=== PATIENT | male | born 1950 | race Caucasian/White ===

== ENCOUNTER 2020-05-20 08:19 | Outpatient (REF) | payer MEDICARE, SELFPAY ==
[2020-05-20 11:42] LABS: Estimated Average Glucose 197 mg/dL; Hemoglobin A1c % 8.5 %
[2020-05-20 11:56] LABS: Glucose Fasting 227 mg/dL (60-99)
== END 2020-05-20 08:20 | disposition home or self-care (01) ==
LOC: HO.HMGCLDS 08:19
PROVIDERS: PCP Internal Medicine; Visit Provider Internal Medicine
DX: E11.9 Type 2 diabetes mellitus without complications (principal)
CPT/HCPCS: 82947; 83036

== ENCOUNTER 2020-05-22 10:49 | Outpatient (REF) | payer MEDICARE, MEDICAID, SELFPAY ==
[2020-05-22 14:46] LABS: Glucose Urine UA >=1000 MG/DL (NEG); Leukocyte Esterase Urine NEG (NEG); Nitrite Urine NEG (NEG); PH 5.5 (5.0-8.0); Urine Blood TRACE (NEG); Urine Ketones NEG (NEG); Urine Protein TRACE MG/DL (NEG-TRACE)
[2020-05-22 14:53] LABS: Appearance Urine CLEAR; Color Urine YELLOW
[2020-05-22 15:12] LABS: RBC Urine 0-2 /HPF (0); Squamous Epithelial Cell Urine 1+ /LPF; WBC Urine 0-2 /HPF (0-4)
== END 2020-05-22 10:50 | disposition home or self-care (01) ==
LOC: HO.HMGCLDS 10:49
PROVIDERS: PCP Internal Medicine; Visit Provider Internal Medicine
DX: R35.0 Frequency of micturition (principal)
CPT/HCPCS: 81001; 87086

== ENCOUNTER 2020-06-02 14:54 | Emergency (ER) | payer MEDICARE, MEDICAID, SELFPAY ==
[2020-06-02 15:05] VITALS: BP 165/76; PULSE 103; RESP 24; TEMP 36.6; O2SAT 97; BMI 33.3
--- NOTE | 2020-06-02 15:26 | PC.NURSE ---
R>L LE PITTING EDEMA SOB
--- NOTE | 2020-06-02 15:38 | ED_ITS ---
HPI - Extremity Problem General Chief complaint: Extremity Problem Stated complaint: LEGS SWOLLEN Time Seen by Provider: 06/02/20 15:24 Source: patient and family Mode of arrival: ambulatory Limitations: no limitations History of Present Illness HPI Narrative: patient has history of chronic leg swelling used to be only 1+ edema not on any diuretics noticed for last few days increased swelling and shortness of breath on exertion. Patient denies any chest pain no PND no pain in the calf area MD Complaint: extremity swelling Onset (ago): week(s) Pain Consistency: constant Location: left and right Severity scale (1-10): 2 Radiation: none Relieving factors: nothing Exacerbating factors: nothing Associated symptoms: shortness of breath Related Data Home Medications Medication Instructions Recorded Confirmed amlodipine 1 tab PO DAILY 06/02/20 06/02/20 azathioprine 1 tab PO TID 06/02/20 06/02/20 melatonin 06/02/20 prednisone 1 tab PO DAILY 06/02/20 06/02/20 prednisone 2.5 tab PO DAILY 06/02/20 06/02/20 pyridostigmine bromide 1 tab PO QID 06/02/20 06/02/20 quetiapine 1 tab PO BEDTIME 06/02/20 06/02/20 simvastatin 1 tab PO BEDTIME 06/02/20 06/02/20 valsartan 1 tab PO DAILY 06/02/20 06/02/20 Allergies Allergy/AdvReac Type Severity Reaction Status Date / Time No Known Allergies Allergy Unverified 03/21/20 15:56 [No Known Allergies*] Review of Systems Review of Systems: REVIEW OF SYSTEMS: Pertinent positives and negatives are stated above in the history. GEN: no fevers, chills, fatigue HEENT: no nasal congestion, sore throat, ear pain NEURO: no headache, dizziness, focal weakness PULM: no cough CV: no chest pain, palpitations, ABD: no abdominal pain, nausea, vomiting, diarrhea : no dysuria, urgency, frequency SKIN: no rash ROS otherwise negative x 10 PMFSH Past Medical History Medical History Diabetes mellitus, type 2 Hypercholesteremia Hypertension Myasthenia gravis Myocardial infarction Social History Social History Advance Directives: No Advance Directives Information Provided: No Physical Exam Vital Signs: Vital Signs: Last Vital Signs Temp 97.8 F 06/02/20 15:05 Pulse 103 H 06/02/20 15:05 Resp 24 H 06/02/20 15:05 BP 165/76 H 06/02/20 15:05 Pulse Ox 97 06/02/20 15:05 Body Mass Index 33.3 Appearance: Alert. Oriented X3. No acute distress. Eyes: Pupils equal, round and reactive to light. ENT: Pharynx normal. Neck: Normal inspection. Neck supple. CVS: Normal heart rate and rhythm. Pulses normal. Respiratory: No respiratory distress. Breath sounds normal. no crackles or rales Abdomen: Soft and nontender. bowel sounds present no hepatosplenomegaly Skin: Skin warm and dry. Normal skin color. Normal skin turgor. Extremities: 3+ lower extremity edema. Good range of movement no calf tenderness Neuro: Oriented X 3. No motor deficit. No sensory deficit. MDM - Extremity (Nontraumatic) MDM Narrative Medical decision making narrative: patient with chronic pedal edema with history of elevated BNP in the past patient is not on any diuretics will do the workup including chest x-ray and BNP and prescribe Lasix. Labs are pending sylvia espinoza signed out to Dr. Aquino for further evaluation and disposition ECG Data Attestation EKG: I personally reviewed and interpreted this ECG as follows: ECG interpretation date: 06/02/20 Interpretation: normal sinus rhythm with ventricular rate 86 normal intervals normal axis no acute ST T wave changes impression normal EKG Discharge Plan Discharge Prescriptions: No Action quetiapine 25 mg tablet 1 tab PO BEDTIME RF: 0 prednisone 10 mg tablet 2.5 tab PO DAILY RF: 0 prednisone 5 mg tablet 1 tab PO DAILY RF: 0 valsartan 80 mg tablet 1 tab PO DAILY RF: 0 azathioprine 50 mg tablet 1 tab PO TID RF: 0 simvastatin 40 mg tablet 1 tab PO BEDTIME RF: 0 amlodipine 10 mg tablet 1 tab PO DAILY RF: 0 pyridostigmine bromide 60 mg tablet 1 tab PO QID RF: 0 melatonin RF: 0
--- NOTE | 2020-06-02 15:43 | ECG_ITS ---
Test Reason : SWOLLEEN FEET Blood Pressure : / mmHG Vent. Rate : 086 BPM Atrial Rate : 086 BPM P-R Int : 132 ms QRS Dur : 084 ms QT Int : 360 ms P-R-T Axes : 068 007 034 degrees QTc Int : 430 ms Normal sinus rhythm Low voltage QRS Nonspecific T wave abnormality Inferior leads Abnormal ECG When compared with ECG of 29-OCT-2019 07:25, Premature atrial complexes are no longer Present Right bundle branch block is no longer Present ST no longer depressed in Inferior leads Anterior leads Heart rate has decreased Referred By: Bubba Wright Electronically Signed By:JENIFFER CHUNG MD
--- NOTE | 2020-06-02 15:44 | XR_ITS ---
EXAMINATION: XR CHEST CLINICAL INFORMATION: Congestive heart failure. COMPARISON: 10/28/2019 and 10/29/2019 TECHNIQUE: Frontal view of the chest was obtained. FINDINGS: Lungs are well expanded. Thin linear opacity of focal scarring or atelectasis in the lingula. No pulmonary edema or consolidation. No overt pleural effusion. Mild pleural thickening in the inferolateral aspect of each hemithorax corresponds to mild subpleural fat deposition (as noted on chest CT of 10/10/2019. Cardiac silhouette is normal in size. There is atherosclerotic calcification of the aorta. The visualized bones are intact. XR/XR chest 1V IMPRESSION: No acute cardiopulmonary findings. No evidence of congestive heart failure.
[2020-06-02 16:48] LABS: MANUAL DIFF FLAG NO
[2020-06-02] MEDS: Furosemide 20 MG/2 ML VIAL IVPUSH (16:59)
[2020-06-02 17:04] LABS: Basophils Percent Auto 0.1 % (0-2); Eosinophils Percent Auto 0.1 % (0-4); Hematocrit 43.2 % (42-52); Hemoglobin 13.8 g/dl (14.0-18.0); Imm Gran Abs Auto 0.28 X10*3/uL (0.00-0.03); Imm Gran Pct Auto 2.5 % (0.0-0.4); Lymphocytes Absolute Auto 0.9 X10*3/uL (1.2-4.9); Lymphocytes Percent Auto 7.9 % (20-40); Mean Corpuscular HGB Conc 31.9 g/dl (31.0-36.0); Mean Corpuscular Hemoglobin 28.4 pg (27.0-33.0); Mean Corpuscular Volume 88.9 fL (80-98); Mean Platelet Volume 9.7 fL (9.4-12.4); Monocytes Absolute Auto 0.5 X10*3/uL (0.1-1.2); Monocytes Percent Auto 4.8 % (2-11); Neutrophils Absolute Auto 9.5 X10*3/uL (2.0-8.3); Neutrophils Percent Auto 84.6 % (45-73); Platelet Count 215 X10*3/uL (160-400); Red Blood Count 4.86 X10*6/uL (4.60-5.80); Red Cell Distribution Width 16.7 % (11.0-16.0); White Blood Count 11.3 X10*3/uL (4.8-10.8)
[2020-06-02 17:11] LABS: Alanine Aminotransferase 39 U/L (0-40); Alkaline Phosphatase 41 U/L (39-117); Anion Gap 17 (12-20); Aspartate Amino Transferase 34 U/L (5-37); Bilirubin Total 0.5 mg/dL (0.0-1.0); Blood Urea Nitrogen 18 mg/dL (9-16); Calcium 8.7 mg/dL (8.4-10.2); Carbon Dioxide 23 mmol/L (22-29); Chloride 103 mmol/L (96-108); Estimated Glomerular Filt Rate > 60; Glucose Random 132 mg/dL (60-115); Potassium 4.4 mmol/l (3.3-5.1); Sodium 139 mmol/L (135-145); Total Protein 6.5 g/dL (6.5-8.0)
[2020-06-02 17:14] LABS: B Type Natriuretic Peptide 20 pg/mL (<100)
[2020-06-02 18:00] VITALS: BP 105/72; PULSE 87; RESP 18; TEMP 36.9; O2SAT 95
[2020-06-02 18:10] LABS: Bilirubin Direct 0.2 mg/dL (0.0-0.5)
[2020-06-02 20:00] VITALS: PULSE 81; RESP 18
--- NOTE | 2020-06-02 20:35 | PC.NURSE ---
PT REQUESTED FOR THIS RN TO REMOVE IV AND ECG LEADS TO HE COULD LEAVE, PT VERBALIZED UNDERSTANDING OF NEED FOR PROVIDER RE-EVAL BUT STATED HE HAD TO GET TO A RESTAURANT BEFORE THEY CLOSED, STATED HE WOULD FOLLOW UP WITH HIS PCP IN THE AM. PT AMBULATED OUT OF ED WITH EVEN STEADY GAIT.
== END 2020-06-02 20:36 | disposition left against medical advice (07) ==
PROVIDERS: Internal Medicine; Emergency Provider Emergency Medicine; PCP Internal Medicine
DX: M79.605 Pain in left leg (principal); M79.604 Pain in right leg; R07.9 Chest pain, unspecified; I10 Essential (primary) hypertension; Z79.899 Other long term (current) drug therapy
CPT/HCPCS: 36415; 71045; 80053; 80076; 82248; 83880; 84484; 85025; 93005; 96374; 99284; J1940

== ENCOUNTER 2020-06-12 12:23 | Outpatient (REF) | payer MEDICARE, MEDICAID, SELFPAY ==
[2020-06-12 13:59] LABS: Alanine Aminotransferase 42 U/L (0-40); Albumin Level 4.3 g/dL (3.5-5.0); Alkaline Phosphatase 45 U/L (39-117); Anion Gap 20 (12-20); Aspartate Amino Transferase 30 U/L (5-37); Bilirubin Total 0.4 mg/dL (0.0-1.0); Blood Urea Nitrogen 21 mg/dL (9-16); Calcium 9.4 mg/dL (8.4-10.2); Carbon Dioxide 22 mmol/L (22-29); Chloride 103 mmol/L (96-108); Estimated Glomerular Filt Rate > 60; Glucose Random 262 mg/dL (60-115); Potassium 5.8 mmol/l (3.3-5.1); Sodium 139 mmol/L (135-145)
[2020-06-12 14:10] LABS: Estimated Average Glucose 203 mg/dL; Hemoglobin A1c % 8.7 %
== END 2020-06-12 12:24 | disposition home or self-care (01) ==
LOC: HO.LAB 12:23
PROVIDERS: PCP Internal Medicine; Visit Provider Psychiatry & Neurology Neurology
DX: G70.01 Myasthenia gravis with (acute) exacerbation (principal); E11.9 Type 2 diabetes mellitus without complications
CPT/HCPCS: 80053; 83036

== ENCOUNTER 2020-07-22 07:45 | Outpatient (REF) | payer MEDICARE, MEDICAID, SELFPAY ==
[2020-07-22 11:27] LABS: Estimated Average Glucose 206 mg/dL; Hemoglobin A1c % 8.8 %
[2020-07-22 11:41] LABS: Glucose Fasting 218 mg/dL (60-99)
== END 2020-07-22 07:46 | disposition home or self-care (01) ==
LOC: HO.HMGCLDS 07:45
PROVIDERS: PCP Internal Medicine; Visit Provider Internal Medicine
DX: E11.9 Type 2 diabetes mellitus without complications (principal)
CPT/HCPCS: 36415; 82947; 83036

== ENCOUNTER 2020-09-04 07:28 | Outpatient (REF) | payer MEDICARE, MEDICAID, SELFPAY ==
[2020-09-04 11:04] LABS: MANUAL DIFF FLAG NO
[2020-09-04 11:23] LABS: Basophils Percent Auto 0.3 % (0-2); Eosinophils Absolute Auto 0.1 X10*3/uL (0.0-0.4); Eosinophils Percent Auto 0.5 % (0-4); Hematocrit 47.5 % (42-52); Imm Gran Abs Auto 0.23 X10*3/uL (0.00-0.03); Imm Gran Pct Auto 2.3 % (0.0-0.4); Lymphocytes Absolute Auto 0.8 X10*3/uL (1.2-4.9); Lymphocytes Percent Auto 8.1 % (20-40); Mean Corpuscular HGB Conc 31.6 g/dl (31.0-36.0); Mean Corpuscular Volume 88.6 fL (80-98); Mean Platelet Volume 9.6 fL (9.4-12.4); Monocytes Absolute Auto 0.5 X10*3/uL (0.1-1.2); Monocytes Percent Auto 5.3 % (2-11); Neutrophils Absolute Auto 8.5 X10*3/uL (2.0-8.3); Neutrophils Percent Auto 83.5 % (45-73); Platelet Count 242 X10*3/uL (160-400); Red Blood Count 5.36 X10*6/uL (4.60-5.80); Red Cell Distribution Width 17.7 % (11.0-16.0); White Blood Count 10.2 X10*3/uL (4.8-10.8)
[2020-09-04 11:28] LABS: Glucose Urine UA 250 MG/DL (NEG); Leukocyte Esterase Urine NEG (NEG); Nitrite Urine NEG (NEG); PH 5.5 (5.0-8.0); Specific Gravity - Urine >= 1.030 (1.005-1.025); Urine Blood 2+ (NEG); Urine Ketones 5 MG/DL (NEG); Urine Protein 2+ MG/DL (NEG-TRACE)
[2020-09-04 11:36] LABS: Appearance Urine TURBID; Color Urine YELLOW
[2020-09-04 11:45] LABS: Estimated Average Glucose 203 mg/dL; Hemoglobin A1c % 8.7 %
[2020-09-04 11:55] LABS: Alanine Aminotransferase 44 U/L (0-40); Albumin Level 4.1 g/dL (3.5-5.0); Alkaline Phosphatase 37 U/L (39-117); Anion Gap 18 (12-20); Aspartate Amino Transferase 30 U/L (5-37); Bilirubin Total 0.7 mg/dL (0.0-1.0); Blood Urea Nitrogen 21 mg/dL (9-16); Calcium 9.3 mg/dL (8.4-10.2); Carbon Dioxide 22 mmol/L (22-29); Chloride 104 mmol/L (96-108); Cholesterol 148 mg/dL; Estimated Glomerular Filt Rate > 60; Glucose Fasting 181 mg/dL (60-99); HDL Cholesterol 65 mg/dL; LDL Cholesterol Calculated 47 mg/dl; Potassium 3.7 mmol/L (3.3-5.1); Sodium 140 mmol/L (135-145); Total Protein 6.6 g/dL (6.5-8.0); Triglycerides 181 mg/dL
[2020-09-04 12:03] LABS: Amorphous Sediment Urine 4+ /LPF; Calcium Oxalate Crystals Urine 1+ /LPF; RBC Urine 0-2 /HPF (0); WBC Urine 0 /HPF (0-4)
[2020-09-04 12:12] LABS: Creatinine Urine 185.34 mg/dL
[2020-09-04 12:18] LABS: PSA,Total (Free>4and<10) 0.58 ng/mL (0.00-4.00)
[2020-09-04 12:33] LABS: Microalbum/Creatinine Ratio Ur 337.2 ug/mg cr
== END 2020-09-04 07:29 | disposition home or self-care (01) ==
LOC: HO.HMGCLDS 07:28
PROVIDERS: PCP Internal Medicine; Visit Provider Internal Medicine
DX: E11.9 Type 2 diabetes mellitus without complications (principal); I10 Essential (primary) hypertension; E78.00 Pure hypercholesterolemia, unspecified; G70.00 Myasthenia gravis without (acute) exacerbation; I48.0 Paroxysmal atrial fibrillation; Z12.5 Encounter for screening for malignant neoplasm of prostate
CPT/HCPCS: 36415; 80053; 80061; 81001; 82043; 83036; 84153; 85025

== ENCOUNTER 2021-01-30 13:38 | Outpatient (AMB) | payer MEDICARE, MEDICAID, SELFPAY ==
--- NOTE | 2021-01-30 14:01 | MHC.OFFVIS ---
Intake Vital Signs 01/30/21 14:11 Height 5 ft 6 in Weight 237 lb BMI 38.2 BP 136/72 Blood Pressure Location Rt brachial Position Sitting Respiration 16 Intake Visit Reasons: hx of hematuria Intake Note: Pt c/o pain has been current for 3 weeks, when touching penis, says penis goes inside and it has to be be pulled out to void. Also Pt was hospitalized recently. [employer] Supervisor Required: No Accompanied by: Spouse Allergies No Known Allergies [No Known Allergies*] Allergy (Verified 06/23/22 12:20) HPI HPI Comments History of Present Illness Details Microscopic hematuria Has not seen any blood in his urine Imaging - ultrasound no abnormality kidneys or bladder Recommend check cystoscopy PFSH Medical History Acute hyperglycemia Ascites Aspiration pneumonia Candidiasis, intertriginous CHF (congestive heart failure) Diabetes Diabetes mellitus, type 2 DVT (deep venous thrombosis) Edema Erythema of lower extremity Hypercholesteremia Hypertension Intractable nausea and vomiting Leg edema Microscopic hematuria Myasthenia gravis Myocardial infarction Obesity Pneumonia due to COVID-19 virus TBI (traumatic brain injury) Urinary tract infection Weakness Surgical History Hx of colonoscopy Family History Mother No problems noted. Father No problems noted. Other No family history of coronary artery disease Social History Household Members: Family Housing: House Do you presently have visiting nurse or other home services: No Unable to assess alcohol history related to: Unknown Alcohol intake: former Patient Tobacco Use Status: Former Tobacco user Tobacco use type: Cigarette Smoked in Last 30 Days: No Second Hand Smoke Exposure: Yes Use of substances other than those prescribed or required for medical reasons: No Substance Use Type: Former Substance User Currently Displaying Signs/Symptoms of Drug Intoxication Withdrawal: No Have you been hit, kicked, punched, or otherwise hurt by someone within the past year? If so, by whom?: No Do you feel safe in your current relationship?: Yes Is there a partner from a previous relationship who is making you feel unsafe now?: No Are you made to feel afraid or neglected: No Advance Directives: Yes Advance Directives on File: Yes Advance Directives Date on File: 05/05/21 Do you have thoughts of harming others: None Do you have a plan to hurt others: No Plan Recently lost weight without trying: No Nutrition Risks: Difficulty swallowing service: No Current occupational status: retired Review of Systems Const Denies chills and Denies fever(s) Card Reports no additional complaints and Denies syncope Resp Denies cough GI Denies abdominal pain and Denies heartburn Reports as per HPI and Denies change in libido Neuro Denies syncope Psych Denies change in libido Endo Denies change in libido Physical Exam Vital Signs: Last Vital Signs Resp 16 01/30/21 14:11 BP 136/72 01/30/21 14:11 BMI result Body Mass Index 38.2 Const General: cooperative, healthy appearing, comfortable and no acute distress Orientation/consciousness: patient oriented x3 HENMT Face and sinus: Yes normal facial exam Mouth: moist mucous membranes Neck Neck: Yes normal visual inspection, Yes full ROM and Yes trachea midline Chest Chest palpation & inspection: normal inspection of the chest Resp Effort & Inspection: normal respiratory effort, able to speak in complete sentences and no respiratory distress GI Inspection: Yes normal to inspection Back/Spine/Pelvis Cervical Spine: normal cervical lordosis Thoracic/Lumbar Spine: thoracic and lumbar spine normal to inspection Skin General skin exam: no rashes or lesions noted Neuro General: patient oriented x3, gait normal, tone normal and moves all extremities Extrem General: Yes normal to inspection and Yes capillary refill normal Results AMB Urinalysis, Automated UA Leukoctes 0 Maude/uL Last Edit by [email or web address] on 01/30/21 14:13 UA Nitrite Negative Last Edit by [email or web address] on 01/30/21 14:13 UA Urobilinogen 0.2 mg/dL Last Edit by Renetta Colon on 01/30/21 14:13 UA Protein 30 mg/dL Last Edit by Renetta Colon on 01/30/21 14:13 UA pH 5.5 Last Edit by Renetta Colon on 01/30/21 14:13 UA Blood 25 Terrance/uL Last Edit by Renetta Colon on 01/30/21 14:13 UA Specific [place] 1.025 Last Edit by [email or web address] on 01/30/21 14:13 UA Ketone Positive Last Edit by [facility] on 01/30/21 14:13 UA Bilirubin 0 mg/dL Last Edit by Renetta Morris on 01/30/21 14:13 UA Glucose 1000 mg/dL Last Edit by Renetta Morris on 01/30/21 14:13 Results Reviewed Results Reviewed: Laboratory Last Values Urine pH (Auto) 5.5 01/30/21 14:03 Specific [place] (Auto) 1.025 01/30/21 14:03 Urine Protein (Auto) 30 mg/dL 01/30/21 14:03 Glucose (UA)(Auto) 1000 mg/dL 01/30/21 14:03 Urine Ketones (Auto) Positive 01/30/21 14:03 Urine Blood (Auto) 25 Terrance/uL 01/30/21 14:03 Urine Nitrite (Auto) Negative 01/30/21 14:03 Urine Bilirubin (Auto) 0 mg/dL 01/30/21 14:03 Urine Urobilinogen (Auto) 0.2 mg/dL 01/30/21 14:03 Leukocyte Esterase (Auto) 0 Maude/uL 01/30/21 14:03 Assessment & Plan Assessment & Plan (1) Microscopic hematuria: Code(s): R31.29 - Other microscopic hematuria Plan Complete imaging, cytology and office cysto Orders: Orders AMB Urinalysis Automated 01/30/21 R31.9 - Hematuria, unspecified Blood Urea Nitrogen 01/30/21 R39.15 - Urgency of urination, R31.29 - Other microscopic hematuria CT urogram 01/30/21 R31.0 - Gross hematuria, R31.29 - Other microscopic hematuria Urine Cytology 01/30/21 R31.29 - Other microscopic hematuria Creatinine 01/30/21 R39.15 - Urgency of urination, R31.29 - Other microscopic hematuria Patient Instructions: Imaging studies, laboratory and physical exam results were discussed and reviewed in detail. No major barriers to patient understanding were identified. An opportunity to ask questions regarding the treatment plan was provided. All questions were answered. The patient expressed understanding and agreement with the above treatment plan. The patient is aware they should contact our office by phone for worsening of their current condition or the appearance of new urologic symptoms. Compliance is encouraged with any medications and followup testing that is ordered. It is a privilege to participate in the urologic care of your patient. If you have any questions or concerns regarding treatment for the above conditions, or other urologic issues, please do not hesitate to contact me. The office telephone contact is [phone]. This note is constructed using voice recognition software. While every effort has been made to ensure accuracy thermal technician errors may have been included. Yours sincerely, Dr Konrad Garza MD, [facility] - Urology Providers of Expert, Compassionate Care for the Genitourinary System Coding Level of Care Code New Pt Level 3 (84472) Diagnoses Microscopic hematuria R31.29
[2021-01-30 14:11] VITALS: BP 136/72; RESP 16; BMI 38.2
== END 2021-01-30 14:20 | disposition home or self-care (01) ==
LOC: HO.HUSH 13:38
PROVIDERS: PCP Internal Medicine; Visit Provider Urology
DX: R31.29 Other microscopic hematuria (principal)
CPT/HCPCS: 99499

== ENCOUNTER 2021-01-30 13:38 | Outpatient (REF) | payer MEDICARE, MEDICAID, SELFPAY ==
[2021-01-30 16:43] LABS: Urine Cytology See Pathology rpt
== END 2021-01-30 13:39 | disposition home or self-care (01) ==
LOC: HO.LNP 13:38
PROVIDERS: PCP Internal Medicine; Visit Provider Urology
DX: R31.29 Other microscopic hematuria (principal)
CPT/HCPCS: 88112

== ENCOUNTER 2021-02-14 07:50 | Outpatient (REF) | payer MEDICARE, MEDICAID, SELFPAY ==
[2021-02-14 11:57] LABS: Blood Urea Nitrogen 18 mg/dL (9-16); Estimated Glomerular Filt Rate > 60
== END 2021-02-14 07:51 | disposition home or self-care (01) ==
LOC: HO.HMGCLDS 07:50
PROVIDERS: PCP Internal Medicine; Visit Provider Urology
DX: R31.29 Other microscopic hematuria (principal); R39.15 Urgency of urination
CPT/HCPCS: 36415; 82565; 84520

== ENCOUNTER → 2021-03-05 13:50 | Outpatient (BNVA) | payer MEDICARE, MEDICAID, SELFPAY | PROVIDERS: PCP Internal Medicine; Visit Provider Urology | DX: R31.29 Other microscopic hematuria (principal); E11.9 Type 2 diabetes mellitus without complications; E78.00 Pure hypercholesterolemia, unspecified; I10 Essential (primary) hypertension | CPT/HCPCS: 52000; 99212 ==

== ENCOUNTER 2021-05-02 11:21 | Inpatient (IN) | payer MEDICARE, MEDICAID, SELFPAY ==
--- NOTE | ~2021-05-02 | XR_ITS ---
EXAMINATION: XR CHEST CLINICAL INFORMATION: Shortness breath COMPARISON: June 02, 2020 TECHNIQUE: Frontal view of the chest was obtained. FINDINGS: There is chronic pleural parenchymal scarring seen at the left base. There is pleural thickening seen bilaterally most prominent in both apices which may be related to endothoracic fat deposition. Heart normal size. No evidence of pulmonary edema. No definite new region of confluent parenchymal disease is seen. XR/XR chest 1V IMPRESSION: Chronic pleural-parenchymal scarring left base. No definite acute parenchymal disease.
[2021-05-02 11:56] VITALS: BP 180/71; PULSE 115; RESP 18; TEMP 36.3; O2SAT 97; BMI 34.8
--- NOTE | 2021-05-02 12:13 | ECG_ITS ---
Test Reason : WEAKNESS/SOB Blood Pressure : / mmHG Vent. Rate : 103 BPM Atrial Rate : 103 BPM P-R Int : 132 ms QRS Dur : 084 ms QT Int : 348 ms P-R-T Axes : 051 -07 031 degrees QTc Int : 455 ms Sinus tachycardia Left axis deviation Otherwise normal ECG Heart rate has increased Referred By: Generic ED Physician Electronically Signed By:JENIFFER CHUNG MD
[2021-05-02 12:49] LABS: Basophils Percent Auto 0.1 % (0-2); Eosinophils Percent Auto 0.1 % (0-4); Hematocrit 43.1 % (42-52); Hemoglobin 13.9 g/dl (14.0-18.0); Imm Gran Abs Auto 0.14 X10*3/uL (0.00-0.03); Imm Gran Pct Auto 1.3 % (0.0-0.4); Lymphocytes Absolute Auto 0.3 X10*3/uL (1.2-4.9); MANUAL DIFF FLAG SCAN; Mean Corpuscular HGB Conc 32.3 g/dl (31.0-36.0); Mean Corpuscular Hemoglobin 28.3 pg (27.0-33.0); Mean Corpuscular Volume 87.8 fL (80-98); Mean Platelet Volume 9.3 fL (9.4-12.4); Monocytes Absolute Auto 0.5 X10*3/uL (0.1-1.2); Monocytes Percent Auto 4.1 % (2-11); Neutrophils Percent Auto 91.4 % (45-73); Platelet Count 258 X10*3/uL (160-400); Red Blood Count 4.91 X10*6/uL (4.60-5.80); Red Cell Distribution Width 18.1 % (11.0-16.0); SCAN SMEAR FLAG 1; White Blood Count 10.9 X10*3/uL (4.8-10.8)
[2021-05-02 13:09] LABS: Troponin-I High Sensitivity 10.8 ng/L (<3.5-35.0)
[2021-05-02 13:15] LABS: SLIDE REVIEW VERIFIED
[2021-05-02 13:17] LABS: Alanine Aminotransferase 56 U/L (0-40); Alkaline Phosphatase 54 U/L (39-117); Anion Gap 21 (12-20); Aspartate Amino Transferase 43 U/L (5-37); Bilirubin Direct 0.2 mg/dL (0.0-0.5); Bilirubin Total 0.6 mg/dL (0.0-1.0); Blood Urea Nitrogen 19 mg/dL (9-16); Calcium 9.4 mg/dL (8.4-10.2); Carbon Dioxide 21 mmol/L (22-29); Chloride 100 mmol/L (96-108); Estimated Glomerular Filt Rate > 60; Glucose Random 414 mg/dL (60-115); Sodium 137 mmol/L (135-145); Total Protein 6.6 g/dL (6.5-8.0)
--- NOTE | 2021-05-02 14:01 | ED_ITS ---
HPI - Weakness General Chief complaint: Weakness Stated complaint: unknown reason Time Seen by Provider: 05/02/21 13:13 Source: patient Mode of arrival: ambulatory Limitations: no limitations History of Present Illness HPI Narrative: patient has myasthenia and noticed that his eyes have been drooping worse for the past few days. In addition he has increasing swelling with erythema to his legs MD Complaint: focal weakness Onset (ago): day(s) Duration: intermittent Location: other (eyes) Severity: mild Associated symptoms: denies other symptoms Related Data Home Medications Medication Instructions Recorded Confirmed amlodipine 10 mg tablet 10 mg PO DAILY 06/02/20 05/02/21 azathioprine 50 mg tablet 50 mg PO TID 06/02/20 05/02/21 prednisone 10 mg tablet 2.5 tab PO DAILY 06/02/20 05/02/21 pyridostigmine bromide 60 mg tablet 1 tab PO QID 06/02/20 05/02/21 quetiapine 25 mg tablet 1 tab PO DAILY@1300 06/02/20 05/02/21 valsartan 80 mg tablet 1 tab PO DAILY 06/02/20 05/02/21 blood sugar diagnostic (FreeStyle #10 ea 03/05/21 Lite Strips) lancets 28 gauge (FreeStyle #100 ea 03/05/21 Lancets) cephalexin 750 mg capsule 750 mg PO QID 05/02/21 05/02/21 furosemide 40 mg tablet 1 tab PO DAILY 05/02/21 05/02/21 metformin 500 mg tablet 2 tab PO BID 05/02/21 05/02/21 rosuvastatin 20 mg tablet 1 tab PO DAILY 05/02/21 05/02/21 Allergies Allergy/AdvReac Type Severity Reaction Status Date / Time No Known Allergies Allergy Verified 03/05/21 14:06 [No Known Allergies*] Review of Systems Constitutional: Constitutional: Reports no additional constitutional complaints Eyes: Eyes: Reports no additional eye complaints ENT: Denies dizziness Cardiovascular: Cardiovascular: Reports no additional cardiovascular complaints Respiratory: Respiratory: Reports as per HPI Gastrointestinal: Gastrointestinal: Reports no additional gastrointestinal complaints Musculoskeletal: Musculoskeletal: Reports no additional musculoskeletal complaints Integumentary/Breasts: Skin/Breast: Denies rash Neurologic: Reports system reviewed and no additional complaints, except as documented, Denies dizziness and Denies Sensory deficit (Neuro) Psychiatric: Psychiatric: Denies anxiety PMFSH Past Medical History Medical History Diabetes mellitus, type 2 Hypercholesteremia Hypertension Myasthenia gravis Myocardial infarction Social History Social History Alcohol intake: never Patient Tobacco Use Status: Never used Tobacco Use of substances other than those prescribed or required for medical reasons: No Advance Directives: No Physical Exam Vital Signs: Vital Signs: Last Vital Signs Temp 97.3 F 05/02/21 11:56 Pulse 103 H 05/02/21 15:29 Resp 20 05/02/21 15:29 BP 171/71 H 05/02/21 15:29 Pulse Ox 99 05/02/21 15:29 Body Mass Index 34.8 Const: Other: unkept male not in acute distress Orientation/consciousness: oriented to person and patient oriented x3 Limitations: no limitations HENMT: Head: Yes normal to inspection Ears: external ears normal General nose exam: Normal external nose present Mouth: Normal oral and palatal mucosa present and oropharynx normal Throat: Yes posterior oropharynx normal Eyes: General: appearance normal, both eyes and all related structures Neck: Other: supple Neck: Yes normal visual inspection Chest: Chest palpation & inspection: normal inspection of the chest Resp: Auscultation: clear to auscultation bilaterally Cardio: Jugular venous distension: no JVD Rate: regular rate Rhythm: regular rhythm Heart sounds: S1 normal heart sound present and S2 normal heart sound present GI: Inspection: Yes normal to inspection Palpation (GI): Soft to palpation, nontender and No hepatosplenomegaly present Auscultation: normal bowel sounds : General: Yes no CVA tenderness Back/Spine/Pelvis: Back: no CVA tenderness Skin: Other: swollen legs with new blisters and erythema Neuro: General: oriented to person and patient oriented x3 Cranial nerves: Yes CN's II-XII intact bilaterally Motor exam (neuro): 5/5 motor strength present throughout Sensory Exam: No Sensory deficit (Neuro) Extrem: Other: bilateral 4 plus edema Psych: Appearance: grossly normal Course Reevaluation(s) Reevaluation #1: will treat hyperglycemia, cellulitis and obtain a NIF Time: 14:15 MDM - Weakness Lab Data Result diagrams: 05/02/21 12:40 05/02/21 12:40 Labs: Lab Results 05/02/21 05/02/21 05/02/21 Range/Units 12:40 12:40 12:40 WBC 10.9 H (4.8-10.8) X10*3/uL RBC 4.91 (4.60-5.80) X10*6/uL Hgb 13.9 L (14.0-18.0) g/dl Hct 43.1 (42-52) % MCV 87.8 (80-98) fL MCH 28.3 (27.0-33.0) pg MCHC 32.3 (31.0-36.0) g/dl RDW 18.1 H (11.0-16.0) % Plt Count 258 (160-400) X10*3/uL MPV 9.3 L (9.4-12.4) fL Immature Gran % (Auto) 1.3 H (0.0-0.4) % Neut % (Auto) 91.4 H (45-73) % Lymph % (Auto) 3.0 L (20-40) % [place] % (Auto) 4.1 (2-11) % Eos % (Auto) 0.1 (0-4) % Baso % (Auto) 0.1 (0-2) % Lymph # (Auto) 0.3 L (1.2-4.9) X10*3/uL [place] # (Auto) 0.5 (0.1-1.2) X10*3/uL Eos # (Auto) 0.0 (0.0-0.4) X10*3/uL Baso # (Auto) 0.0 (0.0-0.2) X10*3/uL Abs Immat Gran (auto) 0.14 H (0.00-0.03) X10*3/uL Absolute Neuts (auto) 10.0 H (2.0-8.3) X10*3/uL Absolute Nucleated RBC 0.000 (0.0-0.012) X10*3/uL Nucleated RBC % (auto) 0.0 (0.0-0.2) /100WBC Smear Tech's Comments VERIFIED Sodium 137 (135-145) mmol/L Potassium 5.0 D (3.3-5.1) mmol/L Chloride 100 (96-108) mmol/L Carbon Dioxide 21 L (22-29) mmol/L Anion Gap 21 H (12-20) BUN 19 H (9-16) mg/dL Creatinine 1.04 (0.5-1.4) mg/dL Estim Creat Clear Calc 75.0 Estimated GFR > 60 POC Glucose (60-115) mg/dL Random Glucose 414 H* (60-115) mg/dL Calcium 9.4 (8.4-10.2) mg/dL Total Bilirubin 0.6 (0.0-1.0) mg/dL Direct Bilirubin 0.2 (0.0-0.5) mg/dL AST 43 H D (5-37) U/L ALT 56 H (0-40) U/L Alkaline Phosphatase 54 D (39-117) U/L Troponin I High Sens 10.8 (<3.5-35.0) ng/L Total Protein 6.6 (6.5-8.0) g/dL Albumin 4.0 (3.5-5.0) g/dL COVID-19 ([facility]) (Negative) COVID-19 Clin Com 05/02/21 05/02/21 Range/Units 14:33 15:21 WBC (4.8-10.8) X10*3/uL RBC (4.60-5.80) X10*6/uL Hgb (14.0-18.0) g/dl Hct (42-52) % MCV (80-98) fL MCH (27.0-33.0) pg MCHC (31.0-36.0) g/dl RDW (11.0-16.0) % Plt Count (160-400) X10*3/uL MPV (9.4-12.4) fL Immature Gran % (Auto) (0.0-0.4) % Neut % (Auto) (45-73) % Lymph % (Auto) (20-40) % [place] % (Auto) (2-11) % Eos % (Auto) (0-4) % Baso % (Auto) (0-2) % Lymph # (Auto) (1.2-4.9) X10*3/uL [place] # (Auto) (0.1-1.2) X10*3/uL Eos # (Auto) (0.0-0.4) X10*3/uL Baso # (Auto) (0.0-0.2) X10*3/uL Abs Immat Gran (auto) (0.00-0.03) X10*3/uL Absolute Neuts (auto) (2.0-8.3) X10*3/uL Absolute Nucleated RBC (0.0-0.012) X10*3/uL Nucleated RBC % (auto) (0.0-0.2) /100WBC Smear Tech's Comments Sodium (135-145) mmol/L Potassium (3.3-5.1) mmol/L Chloride (96-108) mmol/L Carbon Dioxide (22-29) mmol/L Anion Gap (12-20) BUN (9-16) mg/dL Creatinine (0.5-1.4) mg/dL Estim Creat Clear Calc Estimated GFR POC Glucose 295 H (60-115) mg/dL Random Glucose (60-115) mg/dL Calcium (8.4-10.2) mg/dL Total Bilirubin (0.0-1.0) mg/dL Direct Bilirubin (0.0-0.5) mg/dL AST (5-37) U/L ALT (0-40) U/L Alkaline Phosphatase (39-117) U/L Troponin I High Sens (<3.5-35.0) ng/L Total Protein (6.5-8.0) g/dL Albumin (3.5-5.0) g/dL COVID-19 ([facility]) Negative (Negative) COVID-19 Clin Com See Note Discharge Plan Discharge Clinical Impression: Myasthenia gravis in crisis, Cellulitis and abscess of leg, Hyperglycemia Patient Disposition: Admitted As Inpatient
[2021-05-02 15:10] LABS: COVID-19 Test Negative (Negative); IDNOW Serial# 9DD0AD1C
[2021-05-02 15:24] LABS: Glucose, Whole Blood 295 mg/dL (60-115)
[2021-05-02] MEDS: Furosemide 20 MG/2 ML VIAL IVPUSH (15:26)
[2021-05-02 15:29] VITALS: BP 171/71; PULSE 103; RESP 20; O2SAT 99
--- NOTE | 2021-05-02 15:33 | PHA.MEDREC ---
Pharmacy Consult ? Medication Reconciliation Pharmacy has completed the medication reconciliation. Danelle TiwariD
[2021-05-02] MEDS: Insulin Lispro 100 UNIT/ML 3 ML VIAL 10 UNIT SUBCUT (15:53)
[2021-05-02] MEDS: ceFAZolin Sodium/Dextrose,Iso 2 GM/50 ML PIGGYBACK IV (15:54)
--- NOTE | 2021-05-02 16:53 | P.HPHOSP_ITS ---
History of Present Illness Date of Service: 05/02/21 Attending physician on admission: Jose Orantes Chief Complaint: Lower extremity swelling redness and blisters/droopy eyelids 70-year-old gentleman, with past medical history significant for myasthenia gravis being followed by Dr. Hein last seen on January 08 is on prednisone, pyridostigmine and azathioprine brought into [facility] accompanied by due to bilateral droopy eyes and bilateral lower extremity swelling redness and blistering, patient is unable to provide history due to stuttering left the emergency room so most of the history is obtained by ER physician tried calling twice and left message, as per ER physician patient noted to have droopy eyes for last few days associated with increasing swelling and it erythema of both legs without any associated fever chills he also noted to have generalized weakness she denied any symptoms of shortness of breath cough, no nausea no vomiting or diarrhea, denied any sick contacts workup in the emergency room showed normal CBC, blood sugars elevated at 414, with mild anion gap metabolic acidosis and stable renal function patient also noted to have elevated blood pressure and pulse, with normal temperature patient is now being admitted to [facility] with a diagnosis of bilateral lower extremity cellulitis and concern for worsening myasthenia. Review of Systems Review of Systems: General no headache, no dizziness no fever chills. CVS no chest pain, no palpitation. Respiratory no cough, no sob, no respiratory distress. Gastrointestinal no nausea, no vomiting, no abdominal pain Yes all other systems are reviewed and are negative Constitutional: Constitutional: Reports no additional constitutional complaints [facility] Medical History Diabetes mellitus, type 2 Hypercholesteremia Hypertension Myasthenia gravis Myocardial infarction Pertinent family history: No family history of myasthenia gravies or other neurological diagnoses Social History Alcohol intake: never Patient Tobacco Use Status: Never used Tobacco Use of substances other than those prescribed or required for medical reasons: No Advance Directives: No Current occupational status: retired [employer] Allergies Allergy/AdvReac Type Severity Reaction Status Date / Time No Known Allergies Allergy Verified 03/05/21 14:06 [No Known Allergies*] Active Medications: Current Medications Acetaminophen (Acetaminophen 325 Mg Tablet) 650 mg PO Q6H PRN PRN Reason: Pain, Mild (Pain Scale 1-3) Amlodipine Besylate (Amlodipine Besylate 10 Mg Tablet) 10 mg PO DAILY [facility]; Protocol Azathioprine (Azathioprine 50 Mg Tablet) 50 mg PO TID [facility] Dextrose (Dextrose 50 % 25 Gm/50 Ml Vial) 25 gm IVPUSH Q15M PRN; Protocol PRN Reason: per Hypoglycemia Standing Ord. Furosemide (Furosemide 40 Mg/4 Ml Vial) 40 mg IVPUSH DAILY [facility]; Protocol Glucose (Glucose Gel 15 Gm Gel..Gram.) 15 gm PO Q15M PRN; Protocol PRN Reason: per Hypoglycemia Standing Ord. Heparin Sodium (Porcine) (Heparin Sodium,Porcine 5,000 Unit/Ml Vial) 5,000 unit SUBCUT Q12H [facility] Cefazolin Sodium 1 mg/ Sodium (Chloride) 50 mls @ 100 mls/hr IV Q8H [facility] Insulin Glargine (Insulin Glargine,Hum.Rec.Anlog 100 Unit/Ml 10 Ml Vial) 12 unit SUBCUT BEDTIME [facility] Insulin Human Lispro (Insulin Lispro 100 Unit/Ml 3 Ml Vial) 0 unit SUBCUT QIDACHS [facility]; Protocol Non-Formulary Medication (Rosuvastatin) 1 tab PO DAILY [facility] Ondansetron HCl (Ondansetron Hcl 4 Mg/2 Ml Vial) 4 mg IVPUSH Q8H PRN PRN Reason: Nausea and Vomiting Pharmacy Consult (Consult Rx Perform Med Rec) 1 each MISCELLANE ONCE PRN PRN Reason: Consult order Prednisone (Prednisone 5 Mg Tablet) 25 mg PO DAILY [facility] Pyridostigmine [place] (Pyridostigmine [place] 60 Mg Tablet) 60 mg PO QID [facility] Quetiapine Fumarate (Quetiapine Fumarate 25 Mg Tablet) 25 mg PO DAILY@1300 [facility] Sodium Chloride (0.9 % Sodium Chloride Flush 3 Ml Syringe) 3 ml IVFLUSH QSHIFT [facility] Valsartan (Valsartan 80 Mg Tablet) 80 mg PO DAILY [facility]; Protocol Home Medications Medication Instructions Recorded Confirmed Last Taken Type amlodipine 10 mg tablet 10 mg PO DAILY 06/02/20 05/02/21 05/02/21 History azathioprine 50 mg tablet 50 mg PO TID 06/02/20 05/02/21 05/02/21 History prednisone 10 mg tablet 2.5 tab PO DAILY 06/02/20 05/02/2105/02/21 History pyridostigmine bromide 60 mg tablet 1 tab PO QID 06/02/20 05/02/21 05/02/21 History quetiapine 25 mg tablet 1 tab PO DAILY@1300 06/02/20 05/02/21 Unknown History valsartan 80 mg tablet 1 tab PO DAILY 06/02/20 05/02/21 05/02/21 History blood sugar diagnostic (FreeStyle #10 ea 03/05/21 05/02/21 Unknown History Lite Strips) lancets 28 gauge (FreeStyle #100 ea 03/05/21 05/02/21 Unknown History Lancets) cephalexin 750 mg capsule 750 mg PO QID 05/02/21 05/02/21 05/02/21 History furosemide 40 mg tablet 1 tab PO DAILY 05/02/21 05/02/21 05/02/21 History metformin 500 mg tablet 2 tab PO BID 05/02/21 05/02/21 05/02/21 History rosuvastatin 20 mg tablet 1 tab PO DAILY 05/02/21 05/02/21 05/02/21 History Physical Exam Vital Signs and Narrative: Vital Signs: Last Vital Signs Temp 97.3 F 05/02/21 11:56 Pulse 103 H 05/02/21 15:29 Resp 20 05/02/21 15:29 BP 171/71 H 05/02/21 15:29 Pulse Ox 99 05/02/21 15:29 Body Mass Index 34.8 General alert oriented x3, no acute distress. Face diffuse erythematous face and neck (rubor) Neck supple, no JVD. CVS regular rate rhythm, Respiratory lungs clear to auscultation, no respiratory distress, no wheeze, no rhonchi. Gastrointestinal abdomen soft, obese, nontender, bowel sounds audible, no guarding , no rigidity. Extremities bilateral pitting edema, small area of localized redness with blistering and clear drainage Neuro nonfocal ,patient moving all 4 extremity, speech stuttering Psych appropriate affect Musculoskeletal no deformity Results Labs CBC and Chem 7: 05/02/21 12:40 05/03/21 13:11 Labs: Laboratory Results - last 24 hr 05/02/21 05/02/21 05/02/21 12:40 12:40 12:40 MCV 87.8 MCH 28.3 MCHC 32.3 RDW 18.1 H Plt Count 258 MPV 9.3 L Immature Gran % (Auto) 1.3 H Neut % (Auto) 91.4 H Lymph % (Auto) 3.0 L [place] % (Auto) 4.1 Eos % (Auto) 0.1 Baso % (Auto) 0.1 Lymph # (Auto) 0.3 L [place] # (Auto) 0.5 Eos # (Auto) 0.0 Baso # (Auto) 0.0 Abs Immat Gran (auto) 0.14 H Absolute Neuts (auto) 10.0 H Absolute Nucleated RBC 0.000 Nucleated RBC % (auto) 0.0 Smear Tech's Comments VERIFIED Anion Gap 21 H Estim Creat Clear Calc 75.0 Estimated GFR > 60 POC Glucose Random Glucose 414 H* Calcium 9.4 Total Bilirubin 0.6 Direct Bilirubin 0.2 AST 43 H D ALT 56 H Alkaline Phosphatase 54 D Troponin I High Sens 10.8 Total Protein 6.6 Albumin 4.0 COVID-19 ([facility]) COVID-19 Clin Com 05/02/21 05/02/21 14:33 15:21 MCV MCH MCHC RDW Plt Count MPV Immature Gran % (Auto) Neut % (Auto) Lymph % (Auto) [place] % (Auto) Eos % (Auto) Baso % (Auto) Lymph # (Auto) [place] # (Auto) Eos # (Auto) Baso # (Auto) Abs Immat Gran (auto) Absolute Neuts (auto) Absolute Nucleated RBC Nucleated RBC % (auto) Smear Tech's Comments Anion Gap Estim Creat Clear Calc Estimated GFR POC Glucose 295 H Random Glucose Calcium Total Bilirubin Direct Bilirubin AST ALT Alkaline Phosphatase Troponin I High Sens Total Protein Albumin COVID-19 (MANISHA) Negative COVID-19 Clin Com See Note Imaging Radiologist's Impressions: Impressions Chest X-Ray 05/02/21 12:13 IMPRESSION: Chronic pleural-parenchymal scarring left base. No definite acute parenchymal disease. Assessment and Plan (1) Hyperglycemia: Status: Acute (2) Cellulitis of leg: Status: Acute (3) Obesity: Status: Acute 70-year-old gentleman with past medical history significant for hypertension, diabetes, myasthenia gravis on prednisone 25 mg by mouth daily along with azathioprine and pyridostigmine presented to [facility] due to few days history of bilateral lower extremity edema redness and droopy eyes patient is now being admitted due to bilateral lower extremity cellulitis, and concern for impending myasthenia crisis. Bilateral lower extremity cellulitis Patient noted to have worsening swelling likely due to high-dose prednisone Will treat patient with IV Ancef 1 g Q 8 hours follow blood culture Will give IV Lasix due to significant swelling and blistering follow renal function closely. No evidence of congestive heart failure will check BNP Hyperglycemia with mild AG metabolic acidosis Will treat patient with insulin sliding scale and Lantus patient prior hemoglobin A1c are greater than 8 suggestive of poor blood sugar control and also hyperglycemia related to prednisone Diabetic diet, repeat hemoglobin A1c and check average blood sugar Myasthenia gravis No acute exacerbation, but concern for worsening symptoms due to acute infection, vital capacity 2.6, NIF 60, no respiratory distress Continue home medications Obtain neurological consult if noted to have worsening symptoms, will continue to follow spirometry Uncontrolled blood pressure BP noted to be elevated 180 on amlodipine 10 mg and valsartan 80 mg daily, question did not take home medication this morning patient received 1 dose of IV Lasix will repeat blood pressure and adjust medication Obesity Recommend low-calorie diet likely contributing to hyperglycemia and hyperlipidemia. Mild elevated LFTs no abdominal pain will follow labs Mood disorder continue Seroquel DVT prophylaxis with heparin Quality Stroke Does the patient have a stroke diagnosis?: No VTE Prior VTE?: No VTE Risk Level:: Medical - moderate - high VTE Device Contraindication: Treatment Not Indicated VTE Drug Contraindication: N/A - Med Ordered
[2021-05-02 17:13] LABS: Glucose, Whole Blood 242 mg/dL (60-115)
[2021-05-02] MEDS: Nitroglycerin 2 % Oint 1 GM Packet 0.5 INCH TRANSDERMA (17:50)
[2021-05-02] MEDS: Heparin Sodium,Porcine 5,000 UNIT/ML VIAL 5000 UNIT SUBCUT (17:51)
[2021-05-02 17:53] VITALS: BP 141/71; PULSE 95; RESP 16; O2SAT 96
[2021-05-02 18:43] LABS: Appearance Urine CLEAR; Color Urine YELLOW; Glucose Urine UA 500 MG/DL (NEG); Leukocyte Esterase Urine NEG (NEG); Nitrite Urine NEG (NEG); PH 5.5 (5.0-8.0); Specific Gravity - Urine 1.015 (1.005-1.025); UACC Culture Trigger NO; Urine Blood TRACE (NEG); Urine Ketones NEG (NEG); Urine Protein NEG (NEG-TRACE)
[2021-05-02 18:57] LABS: RBC Urine 0-2 /HPF (0); Squamous Epithelial Cell Urine TRACE /LPF; WBC Urine 0-2 /HPF (0-4)
[2021-05-02 19:28] VITALS: BP 159/71; PULSE 102; RESP 27; O2SAT 98
[2021-05-02] MEDS: Insulin Glargine,Hum.rec.anlog 100 UNIT/ML 10 ML VIAL 12 UNIT SUBCUT (21:17)
[2021-05-02 21:18] LABS: Glucose, Whole Blood 250 mg/dL (60-115)
[2021-05-02 21:53] VITALS: BP 175/84; PULSE 94; RESP 24; TEMP 36.6; O2SAT 97
[2021-05-02] MEDS: azaTHIOprine 50 MG TABLET PO (21:59)
[2021-05-02] MEDS: Insulin Lispro 100 UNIT/ML 3 ML VIAL SUBCUT (22:01)
--- NOTE | 2021-05-02 23:16 | MHC.CM.PN ---
CM met with patient at 2215. Pt is a poor historian and has a severe stutter. Pt stated he lives with his daughter. has different address. , Sheryl, is his HCP. HCP on file. Pt thinks he got the Covid Vaccination, but is unsure. CM will need to call Sheryl in the am to complete the CM interview and review the IMM. Pt was becoming frustrated and teary with his stuttering and inability to communicate effectively. Stressed to pt that he did well and not to worry. CM to follow for d/c needs.
[2021-05-02 23:59] VITALS: BP 182/77; PULSE 86; RESP 13; TEMP 36.7; O2SAT 96
[2021-05-03] VITALS (9 sets, daily range): BP systolic 142–182; BP diastolic 61–79; PULSE 85–103; RESP 14–20; TEMP 36.7–37.1; O2SAT 94–96
[2021-05-03] MEDS: 0.9 % Sodium Chloride Flush 3 ML SYRINGE IVFLUSH ×4 (00:02→20:54)
[2021-05-03] MEDS: Acetaminophen 325 MG TABLET 650 MG PO ×2 (01:16→12:09)
[2021-05-03] MEDS: Heparin Sodium,Porcine 5,000 UNIT/ML VIAL 5000 UNIT SUBCUT ×2 (05:50→17:16)
[2021-05-03 07:16] LABS: Estimated Average Glucose 214 mg/dL; Hemoglobin A1c % 9.1 %
--- NOTE | 2021-05-03 07:19 | PC.NURSE ---
report taken from leobardo carpio, pt resting in bed at this time- eating breakfast- aware of plan of care for admission- denied having any questions.
[2021-05-03 07:40] LABS: Glucose, Whole Blood 162 mg/dL (60-115)
[2021-05-03] MEDS: amLODIPine Besylate 10 MG TABLET PO (08:27)
[2021-05-03] MEDS: Furosemide 40 MG/4 ML VIAL IVPUSH (08:27)
[2021-05-03] MEDS: predniSONE 5 MG TABLET 25 MG PO (08:28)
[2021-05-03] MEDS: Insulin Lispro 100 UNIT/ML 3 ML VIAL SUBCUT ×4 (08:28→20:54)
[2021-05-03] MEDS: Valsartan 80 MG TABLET PO (09:20)
[2021-05-03] MEDS: azaTHIOprine 50 MG TABLET PO ×3 (09:20→20:53)
--- NOTE | 2021-05-03 10:38 | MHC.CM.PN ---
PER H&P, PT UNABLE TO PROVIDE HISTORY ON ADMISSION. CM CALLED PTS /HCP, CRISTO TRAN [phone]) WHO REPORTS SHE AND THE PT RESIDE WITH THEIR DAUGHTER, SON-IN-LAW AND GRANDSON. SHE REPORTS THE PT HAS NO HOME SERVICES. CRISTO REPORTED SHE KNOWS LITTLE ELSE ABOUT THE PT MEDICALLY AND THAT THEIR DAUGHTER, KELBY, PROVIDES MOST OF THE CARE. CRISTO REPORTED KELBY WOULD BE THE BEST PERSON TO SPEAK WITH HOWEVER SHE DID NOT HAVE HER PHONE NUMBER ON HAND AND WAS AT WORK. PT HAS A HCP ON FILE NAMING CRISTO HIS AGENT PTS PCP IS REEMA GAGNON. IMM DELIVERED TO PT. CURRENTLY DC PLAN IS TBD. HOME VS HOME WITH [facility] FAMILY TO TRANSPORT
[2021-05-03 13:14] LABS: Glucose, Whole Blood 306 mg/dL (60-115)
[2021-05-03] MEDS: QUEtiapine Fumarate 25 MG TABLET PO (13:18)
[2021-05-03 13:37] LABS: B Type Natriuretic Peptide 39 pg/mL (<100)
[2021-05-03 13:39] LABS: Anion Gap 16 (12-20); Blood Urea Nitrogen 18 mg/dL (9-16); Calcium 8.8 mg/dL (8.4-10.2); Carbon Dioxide 26 mmol/L (22-29); Chloride 100 mmol/L (96-108); Creatinine Clr Calc Pharmacy 88.6; Estimated Glomerular Filt Rate > 60; Glucose Random 306 mg/dL (60-115); Potassium 4.4 mmol/L (3.3-5.1); Sodium 138 mmol/L (135-145)
--- NOTE | 2021-05-03 15:35 | PC.NURSE ---
call placed to [facility]- rn to call back
--- NOTE | 2021-05-03 15:57 | PC.NURSE ---
report given to [facility] nurse
[2021-05-03 16:41] LABS: Glucose, Whole Blood 342 mg/dL (60-115)
--- NOTE | 2021-05-03 17:07 | HO.PM.IMPN ---
Subjective Subjective Date of Service: 05/03/21 Interval History: Being followed for bilateral lower extremity cellulitis and droopy eye, patient feeling significantly better this morning with less edema and redness denies fever chills has been urinating a lot denies burning or urgency, denies droopy eyes this a.m. Review of Systems General no headache, no dizziness no fever chills.? CVS no chest pain, no palpitation.? Respiratory no cough, no sob, no respiratory distress.? Gastrointestinal no nausea, no vomiting, no abdominal pain Yes all other systems are reviewed and are nega Physical Exam Vital Signs: Vital Signs: Last Vital Signs Temp 98.3 F 05/03/21 16:00 Pulse 103 H 05/03/21 16:00 Resp 20 05/03/21 16:00 BP 145/71 H 05/03/21 16:00 Pulse Ox 96 05/03/21 16:00 Body Mass Index 34.8 General alert oriented x3, no acute distress. Face diffuse erythematous face and neck chronic as per patient Neck supple, no JVD. CVS? regular rate rhythm, Respiratory lungs clear to auscultation, no respiratory distress, no wheeze, no rhonchi. Gastrointestinal abdomen soft, obese, nontender, bowel sounds audible, no guarding , no rigidity. Extremities significant improvement in leg edema and redness, all blisters resolved Neuro nonfocal ,patient moving all 4 extremity, speech stuttering Psych appropriate affect Musculoskeletal no deformity Objective Data Active Medications Acetaminophen (Acetaminophen 325 Mg Tablet) 650 mg PO Q6H PRN PRN Reason: Pain, Mild (Pain Scale 1-3) Last Admin: 05/03/21 12:09 Dose: 650 mg Documented by: CARMEN Amlodipine Besylate (Amlodipine Besylate 10 Mg Tablet) 10 mg PO DAILY [facility]; Protocol Last Admin: 05/03/21 08:27 Dose: 10 mg Documented by: CARMEN Atorvastatin Calcium (Atorvastatin Calcium 80 Mg Tablet) 80 mg PO BEDTIME [facility] Azathioprine (Azathioprine 50 Mg Tablet) 50 mg PO TID [facility] Last Admin: 05/03/21 09:20 Dose: 50 mg Documented by: CARMEN Dextrose (Dextrose 50 % 25 Gm/50 Ml Vial) 25 gm IVPUSH Q15M PRN; Protocol PRN Reason: per Hypoglycemia Standing Ord. Furosemide (Furosemide 40 Mg/4 Ml Vial) 40 mg IVPUSH DAILY [facility]; Protocol Last Admin: 05/03/21 08:27 Dose: 40 mg Documented by: CARMEN Glucose (Glucose Gel 15 Gm Gel..Gram.) 15 gm PO Q15M PRN; Protocol PRN Reason: per Hypoglycemia Standing Ord. Heparin Sodium (Porcine) (Heparin Sodium,Porcine 5,000 Unit/Ml Vial) 5,000 unit SUBCUT Q12H [facility] Last Admin: 05/03/21 05:50 Dose: 5,000 unit Documented by: LOIDA Cefazolin Sodium 1 gm/ Sodium (Chloride) 50 mls @ 100 mls/hr IV Q8H [facility] Last Infusion: 05/03/21 13:50 Dose: 0 mls/hr Documented by: CARMEN Insulin Glargine (Insulin Glargine,Hum.Rec.Anlog 100 Unit/Ml 10 Ml Vial) 12 unit SUBCUT BEDTIME [facility] Last Admin: 05/02/21 21:17 Dose: 12 unit Documented by: LOIDA Insulin Human Lispro (Insulin Lispro 100 Unit/Ml 3 Ml Vial) 0 unit SUBCUT QIDACHS [facility]; Protocol Last Admin: 05/03/21 13:18 Dose: 8 unit Documented by: CARMEN Ondansetron HCl (Ondansetron Hcl 4 Mg/2 Ml Vial) 4 mg IVPUSH Q8H PRN PRN Reason: Nausea and Vomiting Pharmacy Consult (Consult Rx Perform Med Rec) 1 each MISCELLANE ONCE PRN PRN Reason: Consult order Prednisone (Prednisone 5 Mg Tablet) 25 mg PO DAILY [facility] Last Admin: 05/03/21 08:28 Dose: 25 mg Documented by: CARMEN Pyridostigmine [place] (Pyridostigmine [place] 60 Mg Tablet) 60 mg PO QID [facility] Last Admin: 05/03/21 13:19 Dose: 60 mg Documented by: CARMEN Quetiapine Fumarate (Quetiapine Fumarate 25 Mg Tablet) 25 mg PO DAILY@1300 [facility] Last Admin: 05/03/21 13:18 Dose: 25 mg Documented by: CARMEN Sodium Chloride (0.9 % Sodium Chloride Flush 3 Ml Syringe) 3 ml IVFLUSH QSHIFT [facility] Last Admin: 05/03/21 15:15 Dose: 3 ml Documented by: CARMEN Valsartan (Valsartan 80 Mg Tablet) 80 mg PO DAILY [facility]; Protocol Last Admin: 05/03/21 09:20 Dose: 80 mg Documented by: CARMEN Labs CBC & Chem 7: 05/02/21 12:40 05/03/21 13:11 Labs: Laboratory Results - last 24 hr 05/02/21 05/02/21 05/02/21 12:40 16:57 18:37 Anion Gap Estim Creat Clear Calc Estimated GFR POC Glucose 242 H Random Glucose Estimat Average Glucose 214 Hemoglobin A1c % 9.1 Calcium B-Natriuretic Peptide Urine Color YELLOW Urine Appearance CLEAR Urine pH 5.5 Ur Specific [place] 1.015 Urine Protein NEG Urine Glucose (UA) 500 H Urine Ketones NEG Urine Blood TRACE Urine Nitrite NEG Ur Leukocyte Esterase NEG Urine RBC 0-2 Urine WBC 0-2 Ur Squamous Epith Cells TRACE Urine Bacteria NONE 05/02/21 05/03/21 05/03/21 21:15 07:27 13:10 Anion Gap Estim Creat Clear Calc Estimated GFR POC Glucose 250 H 162 H 306 H Random Glucose Estimat Average Glucose Hemoglobin A1c % Calcium B-Natriuretic Peptide Urine Color Urine Appearance Urine pH Ur Specific [place] Urine Protein Urine Glucose (UA) Urine Ketones Urine Blood Urine Nitrite Ur Leukocyte Esterase Urine RBC Urine WBC Ur Squamous Epith Cells Urine Bacteria 05/03/21 05/03/21 05/03/21 13:11 13:11 16:37 Anion Gap 16 Estim Creat Clear Calc 88.6 Estimated GFR > 60 POC Glucose 342 H Random Glucose 306 H Estimat Average Glucose Hemoglobin A1c % Calcium 8.8 D B-Natriuretic Peptide 39 Urine Color Urine Appearance Urine pH Ur Specific [place] Urine Protein Urine Glucose (UA) Urine Ketones Urine Blood Urine Nitrite Ur Leukocyte Esterase Urine RBC Urine WBC Ur Squamous Epith Cells Urine Bacteria Assessment and Plan (1) Obesity: Status: Acute (2) Cellulitis of leg: Status: Acute (3) Hyperglycemia: Status: Acute Assessment and Plan: 70-year-old gentleman with past medical history significant for hypertension, diabetes, myasthenia gravis on prednisone 25 mg by mouth daily along with azathioprine and pyridostigmine? presented to [facility] due to few days history of bilateral lower extremity edema redness and droopy eyes patient is now being admitted due to bilateral lower extremity cellulitis, and concern for impending myasthenia crisis. Bilateral lower extremity cellulitis Swelling and redness significantly improved, no evidence of CHF likely fluid overload with prednisone Continue IV Ancef 1 g Q 8 hours, blood culture negative so far Will give IV Lasix due to significant swelling for 1 more day renal function stable No evidence of congestive heart failure will check BNP Hyperglycemia with mild AG metabolic acidosis Gap closed electrolytes normalized, continue insulin sliding scale and Lantus patient prior hemoglobin A1c are greater than 8 suggestive of poor blood sugar control and also hyperglycemia related to prednisone Diabetic diet, repeat hemoglobin A1c 9.1 , resume metformin Myasthenia gravis No acute exacerbation, but concern for worsening symptoms due to acute infection, vital capacity 2.6, NIF 60, on admission, no respiratory distress Continue home medications Obtain neurological consult if noted to have worsening symptoms, will continue to follow spirometry Uncontrolled blood pressure Blood pressure improving continue amlodipine 10 mg and valsartan 80 mg daily, follow blood pressure closely and adjust medication Obesity Recommend low-calorie diet likely contributing to hyperglycemia and hyperlipidemia. Mild elevated LFTs no abdominal pain will follow labs, continue statins Mood disorder continue Seroquel DVT prophylaxis with heparin Quality Stroke Does the patient have a stroke diagnosis?: No VTE Prior VTE?: No VTE Risk Level:: Medical - moderate - high VTE Device Contraindication: Treatment Not Indicated VTE Drug Contraindication: N/A - Med Ordered
[2021-05-03 20:42] LABS: Glucose, Whole Blood 321 mg/dL (60-115)
[2021-05-03] MEDS: Atorvastatin Calcium 80 MG TABLET PO (20:53)
[2021-05-03] MEDS: Insulin Glargine,Hum.rec.anlog 100 UNIT/ML 10 ML VIAL 12 UNIT SUBCUT (20:54)
[2021-05-04 04:00] VITALS: BP 168/72; PULSE 84; RESP 20; TEMP 37; O2SAT 94
[2021-05-04] MEDS: Heparin Sodium,Porcine 5,000 UNIT/ML VIAL 5000 UNIT SUBCUT (05:21)
[2021-05-04 07:49] LABS: Glucose, Whole Blood 203 mg/dL (60-115)
[2021-05-04 08:00] VITALS: BP 164/75; PULSE 74; RESP 19; TEMP 37; O2SAT 98
[2021-05-04 08:13] LABS: Alanine Aminotransferase 35 U/L (0-40); Albumin Level 3.5 g/dL (3.5-5.0); Alkaline Phosphatase 39 U/L (39-117); Anion Gap 19 (12-20); Aspartate Amino Transferase 31 U/L (5-37); Bilirubin Direct 0.2 mg/dL (0.0-0.5); Bilirubin Total 0.5 mg/dL (0.0-1.0); Blood Urea Nitrogen 18 mg/dL (9-16); Calcium 8.4 mg/dL (8.4-10.2); Carbon Dioxide 20 mmol/L (22-29); Chloride 103 mmol/L (96-108); Creatinine Clr Calc Pharmacy 98.7; Estimated Glomerular Filt Rate > 60; Glucose Random 217 mg/dL (60-115); Potassium 3.4 mmol/L (3.3-5.1); Sodium 139 mmol/L (135-145); Total Protein 5.8 g/dL (6.5-8.0)
[2021-05-04] MEDS: Insulin Lispro 100 UNIT/ML 3 ML VIAL SUBCUT ×2 (08:57→11:48)
[2021-05-04 08:58] VITALS: BP 164/75; PULSE 74
[2021-05-04] MEDS: azaTHIOprine 50 MG TABLET PO (08:58)
[2021-05-04] MEDS: Valsartan 80 MG TABLET PO (08:58)
[2021-05-04] MEDS: predniSONE 5 MG TABLET 25 MG PO (08:58)
[2021-05-04] MEDS: amLODIPine Besylate 10 MG TABLET PO (08:58)
[2021-05-04] MEDS: 0.9 % Sodium Chloride Flush 3 ML SYRINGE IVFLUSH (08:59)
[2021-05-04 11:41] LABS: Glucose, Whole Blood 298 mg/dL (60-115)
[2021-05-04] MEDS: Furosemide 40 MG TABLET PO (11:47)
[2021-05-04 12:00] VITALS: BP 154/70; PULSE 95; RESP 18; TEMP 36.9; O2SAT 95
--- NOTE | 2021-05-04 12:44 | MHC.CM.PN ---
pt dcxd home no skilled services ordered by
[2021-05-04] MEDS: Acetaminophen 325 MG TABLET 650 MG PO (12:48)
--- NOTE | 2021-05-04 13:43 | MHC.CM.PN ---
[facility] notified of dc via [employer]scripts
--- NOTE | 2021-05-04 14:34 | P.DS_ITS ---
DS: Providers Provider Date of Service: 05/04/21 Date of admission: 05/02/21 16:43 Primary care physician: Justino Lara MD DS: Diagnosis Discharge Diagnosis (1) Obesity: Status: Acute (2) Cellulitis of leg: Status: Acute (3) Hyperglycemia: Status: Acute DS: Summary Hospital Course Hospital Course: History of presenting illness Chief Complaint: Lower extremity swelling redness and blisters/droopy eyelids 70-year-old gentleman, with past medical history significant for myasthenia gravis being followed by Dr. Hein last seen on January 08 is on prednisone, pyridostigmine and azathioprine brought into [facility] accompanied by due to bilateral droopy eyes and bilateral lower extremity swelling redness and blistering, patient is unable to provide history due to stuttering left the emergency room so most of the history is obtained by ER physician tried calling twice and left message, as per ER physician patient noted to have droopy eyes for last few days associated with increasing swelling and it erythema of both legs without any associated fever chills he also noted to have generalized weakness she denied any symptoms of shortness of breath cough, no nausea no vomiting or diarrhea, denied any sick contacts workup in the emergency room showed normal CBC, blood sugars elevated at 414, with mild anion gap metabolic acidosis and stable renal function patient also noted to have elevated blood pressure and pulse, with normal temperature patient is now being admitted to [facility] with a diagnosis of bilateral lower extremity cellulitis and concern for worsening myasthenia. Hospital course 70-year-old gentleman with past medical history significant for hypertension, diabetes, myasthenia gravis on prednisone 25 mg by mouth daily along with azathioprine and pyridostigmine? presented to [facility] due to few days history of bilateral lower extremity edema, redness and droopy eyes, patient admitted to [facility] with a diagnosis of bilateral lower extremity cellulitis, and concern for impending myasthenia crisis. 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 Hyperglycemia with mild AG metabolic acidosis patient treated with IV insulin and subsequently transitioned to insulin sliding scale and Lantus, patient hemoglobin A1c is 9.1, it seems that patient is noncompliant with diet and is not checking blood sugars closely, patient and is resistant to start insulin therefore will place patient on glipizide 5 mg twice daily have strongly recommend to follow diabetic diet and low-calorie diet recommend to follow-up with primary care physician to obtain continues glucose monitors for ease of checking blood sugars, since it hurts patient to check blood sugars. Myasthenia gravis with concern for worsening symptoms due to acute infection, patient was monitored closely had no respiratory symptoms droopy eyes were resolved, vital capacity 2.6 with NIF 60, patient is being discharged on all home medications with recommendation to follow-up with Dr. Hein Uncontrolled blood pressure continue amlodipine 10 mg and valsartan 80 mg daily, since patient very anxious hold off on increasing BP med, follow-up with primary care physician for blood pressure medication adjustment Obesity Recommend low-calorie diet likely contributing to hyperglycemia and hyperlipidemia. Mild elevated LFTs no abdominal pain , continue statins, follow LFTs as outpatient Mood disorder continue Seroquel Time Spent with Patient Time attestation: Total time spent providing and/or coordinating discharge services: Discharge coordination time: Greater than 30 minutes Quality: Stroke Does the patient have a stroke diagnosis?: No Physical Exam Vital Signs: Vital Signs: Last Vital Signs Temp 98.4 F 05/04/21 12:00 Pulse 95 05/04/21 12:00 Resp 18 05/04/21 12:00 BP 154/70 H 05/04/21 12:00 Pulse Ox 95 05/04/21 12:00 Body Mass Index 34.8 General alert oriented x3, no acute distress. Face diffuse erythematous face and neck chronic Neck supple, no JVD. CVS? regular rate rhythm, Respiratory lungs clear to auscultation, no respiratory distress, no wheeze, no rhonchi. Gastrointestinal abdomen soft, obese, nontender, bowel sounds audible, no guarding , no rigidity. Extremities significant improvement in leg edema and redness, all blisters resolved, localized patchy area of redness bilateral lower leg with dry scabs. Neuro nonfocal ,patient moving all 4 extremity, speech stuttering Musculoskeletal no deformity DS: Data Data Completed and Pending Labs on day of discharge: Laboratory Results - last 24 hr 05/03/21 05/03/21 05/04/21 16:37 20:28 06:41 Sodium 139 Potassium 3.4 D Chloride 103 Carbon Dioxide 20 L Anion Gap 19 BUN 18 H Creatinine 0.79 Estim Creat Clear Calc 98.7 Estimated GFR > 60 POC Glucose 342 H 321 H Random Glucose 217 H Calcium 8.4 Total Bilirubin 0.5 Direct Bilirubin 0.2 AST 31 ALT 35 Alkaline Phosphatase 39 D Total Protein 5.8 L Albumin 3.5 05/04/21 05/04/21 07:37 11:26 Sodium Potassium Chloride Carbon Dioxide Anion Gap BUN Creatinine Estim Creat Clear Calc Estimated GFR POC Glucose 203 H 298 H Random Glucose Calcium Total Bilirubin Direct Bilirubin AST ALT Alkaline Phosphatase Total Protein Albumin Preliminary micro results at discharge 05/02/21 15:36 Blood Culture - Preliminary Blood - Venous No growth after 24 hours. 05/02/21 15:36 Blood Culture - Preliminary Blood - Venous No growth after 24 hours. Discharge Plan Discharge Patient Disposition: Home Health Service Discharge Diagnosis: Bilateral lower extremity cellulitis Hyperglycemia with an anion gap metabolic acidosis Myasthenia gravies Referrals: [facility] [Other] - 1 Week Justino Lara MD [Primary Care Provider] - 1 Week Discharge Medications: New glipizide 5 mg tablet 5 mg PO BID Qty: 60 RF: 0 triamcinolone acetonide 0.1 % cream 1 appl topical BID Qty: 30 RF: 0 Continued quetiapine 25 mg tablet 1 tab PO DAILY@1300 RF: 0 prednisone 10 mg tablet 2.5 tab PO DAILY RF: 0 valsartan 80 mg tablet 1 tab PO DAILY RF: 0 azathioprine 50 mg tablet 50 mg PO TID RF: 0 amlodipine 10 mg tablet 10 mg PO DAILY RF: 0 pyridostigmine bromide 60 mg tablet 1 tab PO QID RF: 0 cephalexin 750 mg capsule 750 mg PO QID RF: 0 furosemide 40 mg tablet 1 tab PO DAILY RF: 0 metformin 500 mg tablet 2 tab PO BID RF: 0 rosuvastatin 20 mg tablet 1 tab PO DAILY RF: 0 Discharge Orders: Discharge Order (Routine); Ordered 05/04/21 Ordered By: Jose Orantes Diet: diabetic diet Activity on Discharge: As tolerated Stand Alone Forms: Patient Portal Discharge page Care Plan Goals: Continue all medicines for myasthenia gravies, take Keflex 750 mg q.i.d. for 5 days as prescribed by PCP apply steroid cream twice daily to both lower legs for 2 weeks, Keep legs elevated, obtain continue blood sugar monitoring device from pcp , discuss with Neurology regarding tapering dose of steroids Health Concerns: Hyperglycemia/hypertension/leg edema keep leg elevated while sitting follow blood sugars closely follow diabetic diet and low-calorie diet. Take all home medications as before start taking glipizide 5 mg twice daily Plan of Treatment: Outpatient follow-up with Dr. Lara in next 1 week outpatient follow-up with Dr. Hein in 4 weeks Assessment: As above Discharge Date/Time: 05/04/21 13:44
== END 2021-05-04 13:44 | disposition home health service (06) | DRG 602 ==
LOC: HO.ED 14:17 → HO.EDOVER 16:54 → HO.IMC 05-03 15:27
PROVIDERS: Admitting Provider Hospitalist; Emergency Provider Emergency Medicine; PCP Internal Medicine; Visit Provider Hospitalist
DX: L03.116 Cellulitis of left lower limb (principal); G70.01 Myasthenia gravis with (acute) exacerbation; L03.115 Cellulitis of right lower limb; E11.65 Type 2 diabetes mellitus with hyperglycemia; E78.5 Hyperlipidemia, unspecified; I10 Essential (primary) hypertension; Z20.822 Contact with and (suspected) exposure to COVID-19; F39 Unspecified mood [affective] disorder; E66.9 Obesity, unspecified; Z91.11 Patient's noncompliance with dietary regimen; Z68.34 Body mass index [BMI] 34.0-34.9, adult; Z79.52 Long term (current) use of systemic steroids; Z79.84 Long term (current) use of oral hypoglycemic drugs; Z79.899 Other long term (current) drug therapy
CPT/HCPCS: 36415; 71045; 80048; 80076; 81001; 82947; 83036; 83880; 84484; 85025; 87040; 87635; 93005; 99285; J0690; J1940

== ENCOUNTER 2021-06-11 12:48 | Emergency (ER) | payer MEDICARE, MEDICAID, SELFPAY ==
[2021-06-11 13:18] VITALS: BP 147/84; PULSE 105; RESP 20; TEMP 36.8; O2SAT 96; BMI 35.4
[2021-06-11 14:51] LABS: MANUAL DIFF FLAG NO
[2021-06-11 14:52] LABS: Basophils Percent Auto 0.2 % (0-2); Eosinophils Percent Auto 0.1 % (0-4); Hematocrit 43.1 % (42.0-52.0); Hemoglobin 13.5 g/dl (14.0-18.0); Imm Gran Abs Auto 0.16 X10*3/uL (0.00-0.03); Imm Gran Pct Auto 1.5 % (0.0-0.4); Lymphocytes Absolute Auto 0.4 X10*3/uL (1.2-4.9); Mean Corpuscular HGB Conc 31.3 g/dl (31.0-36.0); Mean Corpuscular Hemoglobin 27.6 pg (27.0-33.0); Mean Platelet Volume 9.2 fL (9.4-12.4); Monocytes Absolute Auto 0.6 X10*3/uL (0.1-1.2); Monocytes Percent Auto 5.8 % (2-11); Neutrophils Absolute Auto 9.7 x10*3/uL (2.0-8.3); Neutrophils Percent Auto 88.4 % (45-73); Platelet Count 270 X10*3/uL (160-400); Red Cell Distribution Width 18.3 % (11.0-16.0)
[2021-06-11 15:08] LABS: Anion Gap 21 (12-20); Blood Urea Nitrogen 20 mg/dL (9-16); Calcium 9.6 mg/dL (8.4-10.2); Carbon Dioxide 25 mmol/L (22-29); Chloride 100 mmol/L (96-108); Creatinine Clr Calc Pharmacy 79.8; Estimated Glomerular Filt Rate > 60; Glucose Random 284 mg/dL (60-115); Potassium 4.5 mmol/L (3.3-5.1); Sodium 141 mmol/L (135-145)
--- NOTE | 2021-06-11 17:47 | ED_ITS ---
HPI - General Adult General Chief complaint: General Medical Stated complaint: toe infection Source: patient Mode of arrival: ambulatory Limitations: no limitations History of Present Illness HPI narrative: 71-year-old male presents with bilateral great toe and 3rd right toe pain for several days. Onset (ago): day(s) Location: left, right and lower extremity Radiation: non-radiation Severity: moderate Severity scale (1-10): 7 Quality: aching Pain Consistency: constant Relieving factors: rest Exacerbating factors: movement Associated symptoms: denies other symptoms Related Data Home Medications Medication Instructions Recorded Confirmed amlodipine 10 mg tablet 10 mg PO DAILY 06/02/20 05/02/21 azathioprine 50 mg tablet 50 mg PO TID 06/02/20 05/02/21 prednisone 10 mg tablet 2.5 tab PO DAILY 06/02/20 05/02/21 pyridostigmine bromide 60 mg tablet 1 tab PO QID 06/02/20 05/02/21 quetiapine 25 mg tablet 1 tab PO DAILY@1300 06/02/20 05/02/21 valsartan 80 mg tablet 1 tab PO DAILY 06/02/20 05/02/21 blood sugar diagnostic (FreeStyle #10 ea 03/05/21 05/02/21 Lite Strips) lancets 28 gauge (FreeStyle #100 ea 03/05/21 05/02/21 Lancets) cephalexin 750 mg capsule 750 mg PO QID 05/02/21 05/02/21 furosemide 40 mg tablet 1 tab PO DAILY 05/02/21 05/02/21 metformin 500 mg tablet 2 tab PO BID 05/02/21 05/02/21 Previous Rx's Medication Instructions Recorded glipizide 5 mg tablet 5 mg PO BID #60 tab 05/04/21 triamcinolone acetonide 0.1 % 1 appl TOPICAL BID #30 g 05/04/21 topical cream rosuvastatin 20 mg tablet 20 mg PO DAILY 90 Days #90 tab 05/25/21 Allergies Allergy/AdvReac Type Severity Reaction Status Date / Time No Known Allergies Allergy Verified 06/11/21 13:18 [No Known Allergies*] Review of Systems Review of Systems: Constitutional: No Fever, No Chills ENT/Mouth: No Ear Pain, No Hoarseness, No sore throat Eyes: No Eye Pain, No Swelling, No Redness, No Foreign Body Cardiovascular: No Chest Pain, No SOB Respiratory: No Cough, No Dyspnea Gastrointestinal: No Nausea, No Vomiting, No Diarrhea, No abdominal Pain Genitourinary: No Dysuria, No Hematuria Musculoskeletal: positive bilateral great toe and right 3rd toe pain, No Myalgias, No Joint Swelling Skin: No Skin lacerations, No rash Neuro: No Weakness, No Numbness, No Paresthesias, No Loss of Consciousness, No Dizziness, No Headache Psych: No Anxiety/Panic, No Depression Heme/Lymph: no easy bruising, no Lymphadenopathy Endocrine: No Polyuria, No Polydipsia Yes all other systems are reviewed and are negative PENDING SALE TO [facility] Past Medical History Attestation statement: The following information was validated with the patient. Source: old records reviewed Medical History Diabetes mellitus, type 2 Hypercholesteremia Hypertension Myasthenia gravis Myocardial infarction TBI (traumatic brain injury) Social History Social History Household Members: Family Housing: House Do you presently have visiting nurse or other home services: No Unable to assess alcohol history related to: Unknown Alcohol intake: never Patient Tobacco Use Status: Never used Tobacco Advance Directives: No Advance Directives Information Provided: Yes Current occupational status: retired Physical Exam Vital Signs: Vital Signs: Last Vital Signs Temp 98 F 06/11/21 18:20 Pulse 76 06/11/21 18:20 Resp 18 06/11/21 18:20 BP 180/82 H 06/11/21 18:20 Pulse Ox 97 06/11/21 18:20 BMI result Body Mass Index 35.4 Appearance: Alert. Oriented X3. No acute distress. Eyes: Pupils equal, round and reactive to light. ENT: Pharynx normal. Neck: Normal inspection. Neck supple. CVS: Normal heart rate and rhythm. Pulses normal. Respiratory: No respiratory distress. Breath sounds normal. Abdomen: Soft and nontender. Obese. Skin: Skin warm and dry. Dry flaking skin to bilateral lower extremities. Bilateral feet cracked dry skin with onychomycosis. Medial erythema noted bilaterally from mid rios to malleolar process. Extremities: +3 pitting edema bilateral lower extremities to above the knee. Neuro: No motor deficit. No sensory deficit. Course Course Course Narrative: 71-year-old male presents for left great toe pain and right 3rd toe pain. Has concerns for infection. Review of records indicates that he was admitted for cellulitis to bilateral lower extremities on 05/02/2021 and was given a prescription for Keflex upon discharge. He was given prescription by Dr. Lara on 06/08/2021 for Keflex. He is afebrile, appears nontoxic, even unlabored respirations, lung sounds clear. Indication of infection or toxic appearance. No indication of infection to bilateral feet, has brisk capillary refill and equal pulses to bilateral lower extremities. Patient is currently on Keflex. Was prescribed on 06/08/2021 and just picked up the prescription today. Patient was advised to continue taking the Keflex. At this time I do not feel that he needs further antibiotics. His blood counts indicate a white count of 11.0 however he is on prednisone daily for myasthenia gravis. Triage vital signs indicates a heart rate of 105, at bedside pulse is 85, and extremity pulses equal to apical pulse. Plan of care is to discharge home and have patient follow-up with outpatient Podiatry. Patient and patient's family verbalized understanding of and agrees to plan of care discharge home. Medical Decision Making Lab Data Result diagrams: 06/11/21 14:42 06/11/21 14:42 Labs: Lab Results 06/11/21 06/11/21 Range/Units 14:42 14:42 WBC 11.0 H (4.8-10.8) X10*3/uL RBC 4.90 (4.60-5.80) X10*6/uL Hgb 13.5 L (14.0-18.0) g/dl Hct 43.1 (42.0-52.0) % MCV 88.0 (80.0-98.0) fL MCH 27.6 (27.0-33.0) pg MCHC 31.3 (31.0-36.0) g/dl RDW 18.3 H (11.0-16.0) % Plt Count 270 (160-400) X10*3/uL MPV 9.2 L (9.4-12.4) fL Immature Gran % (Auto) 1.5 H (0.0-0.4) % Neut % (Auto) 88.4 H (45-73) % Lymph % (Auto) 4.0 L (20-40) % [place] % (Auto) 5.8 (2-11) % Eos % (Auto) 0.1 (0-4) % Baso % (Auto) 0.2 (0-2) % Lymph # (Auto) 0.4 L (1.2-4.9) X10*3/uL [place] # (Auto) 0.6 (0.1-1.2) X10*3/uL Eos # (Auto) 0.0 (0.0-0.4) X10*3/uL Baso # (Auto) 0.0 (0.0-0.2) X10*3/uL Abs Immat Gran (auto) 0.16 H (0.00-0.03) X10*3/uL Absolute Neuts (auto) 9.7 H (2.0-8.3) x10*3/uL Absolute Nucleated RBC 0.000 (0.0-0.012) X10*3/uL Nucleated RBC % (auto) 0.0 (0.0-0.2) /100WBC Sodium 141 (135-145) mmol/L Potassium 4.5 D (3.3-5.1) mmol/L Chloride 100 (96-108) mmol/L Carbon Dioxide 25 (22-29) mmol/L Anion Gap 21 H (12-20) BUN 20 H (9-16) mg/dL Creatinine 0.94 (0.5-1.4) mg/dL Estim Creat Clear Calc 79.8 Estimated GFR > 60 Random Glucose 284 H (60-115) mg/dL Calcium 9.6 D (8.4-10.2) mg/dL Discharge Plan Discharge Clinical Impression: Pain in toe Qualifiers: Laterality: bilateral Qualified Code(s): M79.674 - Pain in right toe(s) Patient Disposition: Home, Self-Care Instructions: Foot Care for People with Diabetes (ED) Additional Instructions: You were evaluated for toe pain with question for infection. I do not see any indication of infection to your toes, however you must follow-up with Podiatry. Please continue to take the Keflex that was prescribed to you. Finish the entire course of this medication. Your white count is elevated at 11.0. This is to be expected as you do take prednisone on a daily basis for myasthenia gravis. Thank you for choosing this emergency department for evaluation. Please follow-up with primary care physician as needed. Return to the emergency depa rtment for any new, concerning, or worsening symptoms. Prescriptions: No Action rosuvastatin 20 mg tablet 20 mg PO DAILY 90 Days Qty: 90 RF: 0 quetiapine 25 mg tablet 1 tab PO DAILY@1300 RF: 0 prednisone 10 mg tablet 2.5 tab PO DAILY RF: 0 valsartan 80 mg tablet 1 tab PO DAILY RF: 0 azathioprine 50 mg tablet 50 mg PO TID RF: 0 amlodipine 10 mg tablet 10 mg PO DAILY RF: 0 pyridostigmine bromide 60 mg tablet 1 tab PO QID RF: 0 cephalexin 750 mg capsule 750 mg PO QID RF: 0 furosemide 40 mg tablet 1 tab PO DAILY RF: 0 metformin 500 mg tablet 2 tab PO BID RF: 0 glipizide 5 mg tablet 5 mg PO BID Qty: 60 RF: 0 triamcinolone acetonide 0.1 % cream 1 appl topical BID Qty: 30 RF: 0 (DME) lancets [FreeStyle Lancets] 28 gauge misc See Rx Instructions ea Not Applicable DAILY Qty: 100 RF: 0 (DME) FreeStyle Lite Strips Strip See Rx Instructions ea Not Applicable DAILY Qty: 10 RF: 0 Interventions: ED Discharge Assessment Last Done: 06/11/21 18:57 Discharge Date/Time: 06/11/21 18:58
[2021-06-11 18:20] VITALS: BP 180/82; PULSE 76; RESP 18; TEMP 36.6; O2SAT 97
== END 2021-06-11 18:58 | disposition home or self-care (01) ==
PROVIDERS: Emergency Provider Emergency Medicine Emergency Medical Services; PCP Internal Medicine
DX: M79.674 Pain in right toe(s) (principal); M79.675 Pain in left toe(s); E11.9 Type 2 diabetes mellitus without complications; I10 Essential (primary) hypertension; G70.00 Myasthenia gravis without (acute) exacerbation; Z79.899 Other long term (current) drug therapy; I25.2 Old myocardial infarction
CPT/HCPCS: 36415; 80048; 85025; 99283

== ENCOUNTER 2021-08-24 15:02 | Inpatient (IN) | payer MEDICARE, MEDICAID, SELFPAY ==
--- NOTE | ~2021-08-24 | MR_ITS ---
EXAMINATION: MR BRAIN WITHOUT CONTRAST CLINICAL INFORMATION: Weakness. COMPARISON: None. TECHNIQUE: Multiplanar, multisequence imaging of the brain was performed without contrast. Slightly limited study with motion artifacts. FINDINGS: No diffusion abnormalities are identified to suggest an acute or subacute infarct. No evidence of hydrocephalus. No mass effect or midline shift is seen. Mild small vessel ischemic changes noted in the cerebral white matter and dione. Generalized parenchymal volume loss evident. No extra-axial fluid collections are seen. The cerebellum is normal. The gradient refocused acquisition is normal. The craniovertebral junction, marrow signal, and midline structures are normal. The major intracranial flow voids at the level of the [place] are preserved. The dural venous sinus flow voids are maintained. There is a mild amount of fluid in the dependent left mastoid air cells. The paranasal sinuses are clear. MR/MR head/brain wo con IMPRESSION: No acute intracranial process. Mild chronic white matter microangiopathy.
--- NOTE | ~2021-08-24 | US_ITS ---
EXAMINATION: US VENOUS ULTRASOUND WITH DOPPLER LOWER EXTREMITY, BILATERAL CLINICAL INFORMATION: Swelling COMPARISON: None TECHNIQUE: Ultrasound of the deep veins is performed from the hip to the calf with compression sonography and color and pulse Doppler assessment. Spectral analysis with color-flow imaging is performed. FINDINGS: RIGHT: There is normal venous compression and respiratory variation and augmented flow. The visualized common femoral vein, superficial femoral vein, profunda femoral vein, popliteal vein, and the trifurcation region shows no evidence of deep venous thrombosis. There is no significant popliteal fossa cyst. LEFT: There is normal venous compression and respiratory variation and augmented flow. The visualized common femoral vein, superficial femoral vein, profunda femoral vein, popliteal vein, and the trifurcation region shows no evidence of deep venous thrombosis. There is no significant popliteal fossa cyst. US/US venous duplex LE BI IMPRESSION: No DVT demonstrated in the bilateral lower extremity.
--- NOTE | ~2021-08-24 | XR_ITS ---
EXAMINATION: XR CHEST CLINICAL INFORMATION: Shortness of breath COMPARISON: 05/02/2021 TECHNIQUE: Frontal view of the chest was obtained. FINDINGS: Heart size is normal and there is no evidence of CHF. Bibasilar atelectasis is present. There is some mild obscuration of the left hemidiaphragm medially which may be more indicative of an early infiltrate. No definite pleural effusion is seen. XR/XR chest 1V IMPRESSION: Bibasilar atelectasis with question early infiltrate in the posterior basal segment left lower lobe.
[2021-08-24 15:06] VITALS: BP 164/69; PULSE 105; RESP 24; TEMP 37.2; O2SAT 97; BMI 36.0
[2021-08-24 16:06] LABS: Glucose, Whole Blood 283 mg/dL (60-115)
--- NOTE | 2021-08-24 16:07 | ED_ITS ---
HPI - General Adult General Chief complaint: General Medical Stated complaint: water is coming out of his legs, eyes closing Time Seen by Provider: 08/24/21 15:15 Source: patient and family Mode of arrival: ambulatory Limitations: no limitations History of Present Illness HPI narrative: 71-year-old male presents for bilateral leg swelling redness and weeping and also reports to have droopy eyelids, blurred vision, dizziness and increased lethargy over the past 4 days. Onset (ago): day(s) (4) Location: head, left, right and lower extremity Severity: moderate Severity scale (1-10): 5 Quality: aching Pain Consistency: constant Exacerbating factors: movement Associated symptoms: shortness of breath Treatments prior to arrival: none Related Data Home Medications Medication Instructions Recorded Confirmed amlodipine 10 mg tablet 10 mg PO DAILY 06/02/20 08/24/21 azathioprine 50 mg tablet 50 mg PO TID 06/02/20 08/24/21 prednisone 10 mg tablet 2.5 tab PO DAILY 06/02/20 08/24/21 pyridostigmine bromide 60 mg tablet 1 tab PO QID 06/02/20 08/24/21 quetiapine 25 mg tablet 1 tab PO DAILY@1300 06/02/20 08/24/21 valsartan 80 mg tablet 1 tab PO DAILY 06/02/20 08/24/21 blood sugar diagnostic (FreeStyle #10 ea 03/05/21 05/02/21 Lite Strips) lancets 28 gauge (FreeStyle #100 ea 03/05/21 05/02/21 Lancets) furosemide 40 mg tablet 1 tab PO DAILY 05/02/21 08/24/21 metformin 500 mg tablet 2 tab PO BID 05/02/21 08/24/21 clotrimazole 1 % topical cream 1 appl TOPICAL BID 08/24/21 08/24/21 gabapentin 300 mg capsule 1 cap PO BID 08/24/21 08/24/21 loperamide 2 mg capsule 1 tab PO BID 08/24/21 08/24/21 mycophenolate mofetil 500 mg tablet 1 tab PO BID 08/24/21 08/24/21 Previous Rx's Medication Instructions Recorded glipizide 5 mg tablet 5 mg PO BID #60 tab 05/04/21 triamcinolone acetonide 0.1 % 1 appl TOPICAL BID #30 g 05/04/21 topical cream rosuvastatin 20 mg tablet 20 mg PO DAILY 90 Days #90 tab 05/25/21 Allergies Allergy/AdvReac Type Severity Reaction Status Date / Time No Known Allergies Allergy Verified 06/11/21 13:18 [No Known Allergies*] Review of Systems Review of Systems: Constitutional: No Fever, No Chills ENT/Mouth: No Ear Pain, No Hoarseness, No sore throat Eyes: No Eye Pain, No Swelling, No Redness, No Foreign Body Cardiovascular: No Chest Pain, positive SOB, positive increased edema bilaterally with weeping Respiratory: No Cough, No Dyspnea Gastrointestinal: No Nausea, No Vomiting, No Diarrhea, No abdominal Pain Genitourinary: No Dysuria, No Hematuria Musculoskeletal: positive bilateral leg pain, No Myalgias, No Joint Swelling Skin: No Skin lacerations, No rash Neuro: No Weakness, No Numbness, No Paresthesias, No Loss of Consciousness, positive Dizziness, No Headache Psych: No Anxiety/Panic, No Depression Heme/Lymph: no easy bruising, no Lymphadenopathy Endocrine: No Polyuria, No Polydipsia Yes all other systems are reviewed and are negative [facility] Past Medical History Attestation statement: The following information was validated with the patient. Source: old records reviewed Medical History Diabetes mellitus, type 2 Hypercholesteremia Hypertension Myasthenia gravis Myocardial infarction TBI (traumatic brain injury) Social History Social History Household Members: Family Housing: House Do you presently have visiting nurse or other home services: No Unable to assess alcohol history related to: Unknown Alcohol intake: never Patient Tobacco Use Status: Never used Tobacco Advance Directives: No Advance Directives Information Provided: No Current occupational status: retired Physical Exam ED Vital Signs: Vital Signs - 24 hr 08/24/21 15:06 08/24/21 18:42 08/24/21 19:05 Temperature 99 F 97.8 F 98.0 F Pulse Rate 105 H 100 104 H Respiratory Rate 24 H 22 H 15 Blood Pressure 164/69 H 147/66 H 149/64 H Pulse Oximetry 97 95 97 08/24/21 20:28 Temperature Pulse Rate 94 Respiratory Rate 22 H Blood Pressure 161/68 H Pulse Oximetry 96 BMI result Body Mass Index 36.0 Appearance: Alert. Oriented X3. Moderate distress. Eyes: Pupils equal, round and reactive to light. EOMI. Sclera nonicteric. ENT: Pharynx normal. Moist mucous membranes. Neck: Normal inspection. Neck supple. CVS: Tachycardic heart rate and rhythm. Respiratory: No respiratory distress. Diminished lung sounds. Abdomen: Soft and nontender. Obese. Nontender. Skin: Bilateral lower extremity edema with cellulitis, blistering. Extremities: +4 pitting edema bilaterally. Moves all extremities against resistance. Gait awkward but balanced. Neuro: No motor deficit. No sensory deficit. Cranial nerves 2-12 intact. NIH Stroke Scale Internal: Initial- Upon Arrival Level of Consciousness: Alert Level of Consciousness Questions: Answers both questions correctly Level of Consciousness Commands: Performs both tasks correctly Best Gaze: Normal Visual: No visual loss Facial Palsy: Normal Motor Arm (Right): No drift Motor Arm (Left): No drift Motor Leg (Right): No drift Motor Leg (Left): No drift Limb Ataxia: Absent Sensory: Normal Dysarthia: Mild to moderate dysarthria (baseline) Extinction and Inattention: No abnormality Course Course Course Narrative: 71-year-old male presents with worsening myasthenia gravis and bilateral lower extremity cellulitis and edema with weeping. Patient speaks with a stutter per baseline, secondary to a past medical history of TBI. His states that he is at his baseline behavior. 16:10 after review of records, patient was admitted 05/02/2021 with worsening myasthenia gravis, and bilateral lower extremity cellulitis. Patient does take prednisone on a daily basis because of myasthenia gravis, and does take blood pressure medications but he he is unsure what time he takes it because his son prepares his medication. 17:04 lactic 9.3. Value will be repeated. Patient does not present as if he is septic. No abdominal pain, low likelihood for bowel ischemia, patient does take metformin. Could possibly be metformin acidosis. We will not be resuscitating fluids at this time. Patient appears to be in overload, has weeping wounds with copious amounts of fluid, +4 pitting edema bilaterally. Discussed this with Dr. Wright in detail and he agrees with this plan. Potassium elevated at 5.5, given insulin and Lasix. 21:30 Discussion with hospitalist regarding plan of care for admission. Will admit for cellulitis without sepsis, acidosis most likely due to metformin, and suspicion of pneumonia without sepsis. Consultations Consultation #1: Hospitalist Time: 21:45 Medical Decision Making Differential Diagnosis Differential Diagnosis: CHF, edema, cellulitis, sepsis, acidosis, myasthenia gravis Medical Records Medical records reviewed: Yes I reviewed the patient's medical records. Lab Data Lab results reviewed: Yes I reviewed the patient's lab results. Result diagrams: 08/24/21 19:22 08/24/21 16:29 Labs: Lab Results 08/24/21 08/24/21 08/24/21 Range/Units 16:02 16:29 16:29 WBC (4.8-10.8) X10*3/uL RBC (4.60-5.80) X10*6/uL Hgb (14.0-18.0) g/dl Hct (42.0-52.0) % MCV (80.0-98.0) fL MCH (27.0-33.0) pg MCHC (31.0-36.0) g/dl RDW (11.0-16.0) % Plt Count (160-400) X10*3/uL MPV (9.4-12.4) fL Immature Gran % (Auto) (0.0-0.4) % Neut % (Auto) (45-73) % Lymph % (Auto) (20-40) % [place] % (Auto) (2-11) % Eos % (Auto) (0-4) % Baso % (Auto) (0-2) % Lymph # (Auto) (1.2-4.9) X10*3/uL [place] # (Auto) (0.1-1.2) X10*3/uL Eos # (Auto) (0.0-0.4) X10*3/uL Baso # (Auto) (0.0-0.2) X10*3/uL Abs Immat Gran (auto) (0.00-0.03) X10*3/uL Absolute Neuts (auto) (2.0-8.3) x10*3/uL Absolute Nucleated RBC (0.0-0.012) X10*3/uL Nucleated RBC % (auto) (0.0-0.2) /100WBC PT (9.9-13.0) SEC INR (0.9-1.1) APTT Sodium 138 (135-145) mmol/L Potassium 5.5 H D (3.3-5.1) mmol/L Chloride 102 (96-108) mmol/L Carbon Dioxide 19 L (22-29) mmol/L Anion Gap 23 H (12-20) BUN 22 H (9-16) mg/dL Creatinine 0.99 (0.5-1.4) mg/dL Estim Creat Clear Calc 78.9 Estimated GFR > 60 POC Glucose 283 H (60-115) mg/dL Random Glucose 287 H (60-115) mg/dL Lactic Acid 9.3 H* (0.5-2.0) mmol/L Lactic Acid F/U @ 2Hr (0.5-2.0) mmol/L Calcium 9.0 D (8.4-10.2) mg/dL Magnesium 1.9 (1.6-2.6) mg/dL Total Bilirubin 0.4 (0.0-1.0) mg/dL Direct Bilirubin 0.2 (0.0-0.5) mg/dL AST 45 H D (5-37) U/L ALT 44 H (0-40) U/L Alkaline Phosphatase 40 (39-117) U/L Troponin I High Sens (<3.5-35.0) ng/L B-Natriuretic Peptide (<100) pg/mL Total Protein 6.3 L (6.5-8.0) g/dL Albumin 3.6 (3.5-5.0) g/dL Lipase 90 H (8-78) U/L Urine Color Urine Appearance Urine pH (5.0-8.0) Ur Specific [place] (1.005-1.025) Urine Protein (NEG-TRACE) MG/DL Urine Glucose (UA) (NEG) MG/DL Urine Ketones (NEG) MG/DL Urine Blood (NEG) Urine Nitrite (NEG) Ur Leukocyte Esterase (NEG) COVID-19 (MANISHA) (Negative) COVID-19 Clin Com 08/24/21 08/24/21 08/24/21 Range/Units 16:29 16:29 16:30 WBC (4.8-10.8) X10*3/uL RBC (4.60-5.80) X10*6/uL Hgb (14.0-18.0) g/dl Hct (42.0-52.0) % MCV (80.0-98.0) fL MCH (27.0-33.0) pg MCHC (31.0-36.0) g/dl RDW (11.0-16.0) % Plt Count (160-400) X10*3/uL MPV (9.4-12.4) fL Immature Gran % (Auto) (0.0-0.4) % Neut % (Auto) (45-73) % Lymph % (Auto) (20-40) % [place] % (Auto) (2-11) % Eos % (Auto) (0-4) % Baso % (Auto) (0-2) % Lymph # (Auto) (1.2-4.9) X10*3/uL [place] # (Auto) (0.1-1.2) X10*3/uL Eos # (Auto) (0.0-0.4) X10*3/uL Baso # (Auto) (0.0-0.2) X10*3/uL Abs Immat Gran (auto) (0.00-0.03) X10*3/uL Absolute Neuts (auto) (2.0-8.3) x10*3/uL Absolute Nucleated RBC (0.0-0.012) X10*3/uL Nucleated RBC % (auto) (0.0-0.2) /100WBC PT (9.9-13.0) SEC INR (0.9-1.1) APTT Sodium (135-145) mmol/L Potassium (3.3-5.1) mmol/L Chloride (96-108) mmol/L Carbon Dioxide (22-29) mmol/L Anion Gap (12-20) BUN (9-16) mg/dL Creatinine (0.5-1.4) mg/dL Estim Creat Clear Calc Estimated GFR POC Glucose (60-115) mg/dL Random Glucose (60-115) mg/dL Lactic Acid (0.5-2.0) mmol/L Lactic Acid F/U @ 2Hr (0.5-2.0) mmol/L Calcium (8.4-10.2) mg/dL Magnesium (1.6-2.6) mg/dL Total Bilirubin (0.0-1.0) mg/dL Direct Bilirubin (0.0-0.5) mg/dL AST (5-37) U/L ALT (0-40) U/L Alkaline Phosphatase (39-117) U/L Troponin I High Sens 10.5 (<3.5-35.0) ng/L B-Natriuretic Peptide 18 Cancelled (<100) pg/mL Total Protein (6.5-8.0) g/dL Albumin (3.5-5.0) g/dL Lipase (8-78) U/L Urine Color Urine Appearance Urine pH (5.0-8.0) Ur Specific [place] (1.005-1.025) Urine Protein (NEG-TRACE) MG/DL Urine Glucose (UA) (NEG) MG/DL Urine Ketones (NEG) MG/DL Urine Blood (NEG) Urine Nitrite (NEG) Ur Leukocyte Esterase (NEG) COVID-19 (MANISHA) Negative (Negative) COVID-19 Clin Com See Note 08/24/21 08/24/21 08/24/21 Range/Units 16:59 17:00 18:37 WBC (4.8-10.8) X10*3/uL RBC (4.60-5.80) X10*6/uL Hgb (14.0-18.0) g/dl Hct (42.0-52.0) % MCV (80.0-98.0) fL MCH (27.0-33.0) pg MCHC (31.0-36.0) g/dl RDW (11.0-16.0) % Plt Count (160-400) X10*3/uL MPV (9.4-12.4) fL Immature Gran % (Auto) (0.0-0.4) % Neut % (Auto) (45-73) % Lymph % (Auto) (20-40) % [place] % (Auto) (2-11) % Eos % (Auto) (0-4) % Baso % (Auto) (0-2) % Lymph # (Auto) (1.2-4.9) X10*3/uL [place] # (Auto) (0.1-1.2) X10*3/uL Eos # (Auto) (0.0-0.4) X10*3/uL Baso # (Auto) (0.0-0.2) X10*3/uL Abs Immat Gran (auto) (0.00-0.03) X10*3/uL Absolute Neuts (auto) (2.0-8.3) x10*3/uL Absolute Nucleated RBC (0.0-0.012) X10*3/uL Nucleated RBC % (auto) (0.0-0.2) /100WBC PT 11.2 (9.9-13.0) SEC INR 1.0 (0.9-1.1) APTT Cancelled 35.4 Sodium (135-145) mmol/L Potassium (3.3-5.1) mmol/L Chloride (96-108) mmol/L Carbon Dioxide (22-29) mmol/L Anion Gap (12-20) BUN (9-16) mg/dL Creatinine (0.5-1.4) mg/dL Estim Creat Clear Calc Estimated GFR POC Glucose (60-115) mg/dL Random Glucose (60-115) mg/dL Lactic Acid 5.6 H* (0.5-2.0) mmol/L Lactic Acid F/U @ 2Hr (0.5-2.0) mmol/L Calcium (8.4-10.2) mg/dL Magnesium (1.6-2.6) mg/dL Total Bilirubin (0.0-1.0) mg/dL Direct Bilirubin (0.0-0.5) mg/dL AST (5-37) U/L ALT (0-40) U/L Alkaline Phosphatase (39-117) U/L Troponin I High Sens (<3.5-35.0) ng/L B-Natriuretic Peptide (<100) pg/mL Total Protein (6.5-8.0) g/dL Albumin (3.5-5.0) g/dL Lipase (8-78) U/L Urine Color Urine Appearance Urine pH (5.0-8.0) Ur Specific [place] (1.005-1.025) Urine Protein (NEG-TRACE) MG/DL Urine Glucose (UA) (NEG) MG/DL Urine Ketones (NEG) MG/DL Urine Blood (NEG) Urine Nitrite (NEG) Ur Leukocyte Esterase (NEG) COVID-19 ([facility]HA) (Negative) COVID-19 Clin Com 08/24/21 08/24/21 08/24/21 Range/Units 18:57 19:22 21:20 WBC 11.9 H (4.8-10.8) X10*3/uL RBC 4.75 (4.60-5.80) X10*6/uL Hgb 12.9 L (14.0-18.0) g/dl Hct 40.8 L (42.0-52.0) % MCV 85.9 (80.0-98.0) fL MCH 27.2 (27.0-33.0) pg MCHC 31.6 (31.0-36.0) g/dl RDW 18.6 H (11.0-16.0) % Plt Count 235 (160-400) X10*3/uL MPV 9.3 L (9.4-12.4) fL Immature Gran % (Auto) 2.6 H (0.0-0.4) % Neut % (Auto) 86.7 H (45-73) % Lymph % (Auto) 5.0 L (20-40) % [place] % (Auto) 5.4 (2-11) % Eos % (Auto) 0.1 (0-4) % Baso % (Auto) 0.2 (0-2) % Lymph # (Auto) 0.6 L (1.2-4.9) X10*3/uL [place] # (Auto) 0.6 (0.1-1.2) X10*3/uL Eos # (Auto) 0.0 (0.0-0.4) X10*3/uL Baso # (Auto) 0.0 (0.0-0.2) X10*3/uL Abs Immat Gran (auto) 0.31 H (0.00-0.03) X10*3/uL Absolute Neuts (auto) 10.4 H (2.0-8.3) x10*3/uL Absolute Nucleated RBC 0.000 (0.0-0.012) X10*3/uL Nucleated RBC % (auto) 0.0 (0.0-0.2) /100WBC PT (9.9-13.0) SEC INR (0.9-1.1) APTT Sodium (135-145) mmol/L Potassium (3.3-5.1) mmol/L Chloride (96-108) mmol/L Carbon Dioxide (22-29) mmol/L Anion Gap (12-20) BUN (9-16) mg/dL Creatinine (0.5-1.4) mg/dL Estim Creat Clear Calc Estimated GFR POC Glucose (60-115) mg/dL Random Glucose (60-115) mg/dL Lactic Acid (0.5-2.0) mmol/L Lactic Acid F/U @ 2Hr 3.5 H* (0.5-2.0) mmol/L Calcium (8.4-10.2) mg/dL Magnesium (1.6-2.6) mg/dL Total Bilirubin (0.0-1.0) mg/dL Direct Bilirubin (0.0-0.5) mg/dL AST (5-37) U/L ALT (0-40) U/L Alkaline Phosphatase (39-117) U/L Troponin I High Sens (<3.5-35.0) ng/L B-Natriuretic Peptide (<100) pg/mL Total Protein (6.5-8.0) g/dL Albumin (3.5-5.0) g/dL Lipase (8-78) U/L Urine Color STRAW Urine Appearance CLEAR Urine pH 5.5 (5.0-8.0) Ur Specific [place] 1.020 (1.005-1.025) Urine Protein NEG (NEG-TRACE) MG/DL Urine Glucose (UA) 250 H (NEG) MG/DL Urine Ketones NEG (NEG) MG/DL Urine Blood NEG (NEG) Urine Nitrite NEG (NEG) Ur Leukocyte Esterase NEG (NEG) COVID-19 ([facility]) (Negative) COVID-19 Clin Com Imaging Data Chest x-ray: Attestation: I personally reviewed and interpreted this imaging study as follows: Radiologist's impression: EXAMINATION: XR CHEST CLINICAL INFORMATION: Shortness of breath COMPARISON: 05/02/2021 TECHNIQUE: Frontal view of the chest was obtained. FINDINGS: Heart size is normal and there is no evidence of CHF. Bibasilar atelectasis is present. There is some mild obscuration of the left hemidiaphragm medially which may be more indicative of an early infiltrate. No definite pleural effusion is seen. XR/XR chest 1V IMPRESSION: Bibasilar atelectasis with question early infiltrate in the posterior basal segment left lower lobe. ? ECG Data Attestation: I personally reviewed and interpreted this ECG as follows: Prior ECG tracings: available for review Interpretation: Vent. rate 93 BPM MN interval 136 ms QRS duration 84 ms QT/QTc 350/435 ms P-R-T axes 52 -24 28 Normal sinus rhythm Normal ECG When compared with ECG of 02-MAY-2021 14:08, No significant change was found 24-AUG-2021 16:39:17 Critical Care Time Critical Care Time Critical Care Time: Yes Total Critical Care Time: 45 Attestation: Thank you for choosing this emergency department for evaluation. Please follow-up with primary care physician as needed. Return to the emergency department for any new, concerning, or worsening symptoms. Discharge Plan Discharge Prescriptions: No Action rosuvastatin 20 mg tablet 20 mg PO DAILY 90 Days Qty: 90 0RF quetiapine 25 mg tablet 1 tab PO DAILY@1300 0RF prednisone 10 mg tablet 2.5 tab PO DAILY 0RF valsartan 80 mg tablet 1 tab PO DAILY 0RF azathioprine 50 mg tablet 50 mg PO TID 0RF amlodipine 10 mg tablet 10 mg PO DAILY 0RF pyridostigmine bromide 60 mg tablet 1 tab PO QID 0RF furosemide 40 mg tablet 1 tab PO DAILY 0RF metformin 500 mg tablet 2 tab PO BID 0RF glipizide 5 mg tablet 5 mg PO BID Qty: 60 0RF triamcinolone acetonide 0.1 % cream 1 appl topical BID Qty: 30 0RF Rx Instructions: apply to legs loperamide 2 mg capsule 1 tab PO BID 0RF mycophenolate mofetil 500 mg tablet 1 tab PO BID 0RF gabapentin 300 mg capsule 1 cap PO BID 0RF clotrimazole 1 % cream 1 appl topical BID 0RF (DME) lancets [FreeStyle Lancets] 28 gauge misc See Rx Instructions ea Not Applicable DAILY Qty: 100 0RF Rx Instructions: As directed (DME) FreeStyle Lite Strips Strip See Rx Instructions ea Not Applicable DAILY Qty: 10 0RF Rx Instructions: As directed
--- NOTE | 2021-08-24 16:10 | ECG_ITS ---
Test Reason : SWOLLEN LEGS Blood Pressure : / mmHG Vent. Rate : 093 BPM Atrial Rate : 093 BPM P-R Int : 136 ms QRS Dur : 084 ms QT Int : 350 ms P-R-T Axes : 052 -24 028 degrees QTc Int : 435 ms Normal sinus rhythm Normal ECG When compared with ECG of 02-MAY-2021 14:08, No significant change was found Referred By: Christal Arteaga Electronically Signed By:LORRI GTZ
[2021-08-24 17:01] LABS: Alanine Aminotransferase 44 U/L (0-40); Albumin Level 3.6 g/dL (3.5-5.0); Alkaline Phosphatase 40 U/L (39-117); Anion Gap 23 (12-20); Aspartate Amino Transferase 45 U/L (5-37); Bilirubin Direct 0.2 mg/dL (0.0-0.5); Bilirubin Total 0.4 mg/dL (0.0-1.0); Blood Urea Nitrogen 22 mg/dL (9-16); Carbon Dioxide 19 mmol/L (22-29); Chloride 102 mmol/L (96-108); Creatinine Clr Calc Pharmacy 78.9; Estimated Glomerular Filt Rate > 60; Glucose Random 287 mg/dL (60-115); Lipase 90 U/L (8-78); Magnesium 1.9 mg/dL (1.6-2.6); Potassium 5.5 mmol/L (3.3-5.1); Sodium 138 mmol/L (135-145); Total Protein 6.3 g/dL (6.5-8.0)
[2021-08-24 17:02] LABS: COVID-19 Test Negative (Negative)
[2021-08-24 17:04] LABS: Lactic Acid 9.3 mmol/L (0.5-2.0)
[2021-08-24 17:07] LABS: B Type Natriuretic Peptide 18 pg/mL (<100); Troponin-I High Sensitivity 10.5 ng/L (<3.5-35.0)
[2021-08-24 17:13] LABS: Prothrombin Time 11.2 SEC (9.9-13.0)
[2021-08-24 17:15] LABS: Partial Thromboplastin Time 35.4 SEC (24.1-38.0)
[2021-08-24] MEDS: Furosemide 40 MG/4 ML VIAL IVPUSH (17:30)
[2021-08-24] MEDS: Insulin Lispro 100 UNIT/ML 3 ML VIAL 6 UNIT SUBCUT (18:01)
[2021-08-24 18:34] LABS: Reflex Lactate? Lactic Acid Added
[2021-08-24 18:42] VITALS: BP 147/66; PULSE 100; RESP 22; TEMP 36.6; O2SAT 95
[2021-08-24 19:05] VITALS: BP 149/64; PULSE 104; RESP 15; TEMP 36.7; O2SAT 97
[2021-08-24 19:05] LABS: Appearance Urine CLEAR; Color Urine STRAW; Glucose Urine UA 250 MG/DL (NEG); Leukocyte Esterase Urine NEG (NEG); Nitrite Urine NEG (NEG); PH 5.5 (5.0-8.0); Urine Blood NEG (NEG); Urine Ketones NEG (NEG); Urine Protein NEG (NEG-TRACE)
[2021-08-24 19:16] LABS: Lactic Acid 5.6 mmol/L (0.5-2.0)
--- NOTE | 2021-08-24 19:20 | PC.NURSE ---
Pt resting on stretcher in NAD, breathing wtih ease on RA, VSS. Pt denies pain/discomfort. Pt BLE weeping clear fluid, pillow placed beneath legs, bret pad and disposable absorbing cloth placed beneath legs. Pt CBC drawn, to be sent to lab for processing by L[facility] DAUGHERTY. Pt stretcher is in lowest locked position, rails raised, call pastor within reach. Pt able to verbalize use of call pastor to notify staff of any/all needs.
[2021-08-24 19:26] LABS: MANUAL DIFF FLAG NO
[2021-08-24 19:27] LABS: Basophils Percent Auto 0.2 % (0-2); Eosinophils Percent Auto 0.1 % (0-4); Hematocrit 40.8 % (42.0-52.0); Hemoglobin 12.9 g/dl (14.0-18.0); Imm Gran Abs Auto 0.31 X10*3/uL (0.00-0.03); Imm Gran Pct Auto 2.6 % (0.0-0.4); Lymphocytes Absolute Auto 0.6 X10*3/uL (1.2-4.9); Mean Corpuscular HGB Conc 31.6 g/dl (31.0-36.0); Mean Corpuscular Hemoglobin 27.2 pg (27.0-33.0); Mean Corpuscular Volume 85.9 fL (80.0-98.0); Mean Platelet Volume 9.3 fL (9.4-12.4); Monocytes Absolute Auto 0.6 X10*3/uL (0.1-1.2); Monocytes Percent Auto 5.4 % (2-11); Neutrophils Absolute Auto 10.4 x10*3/uL (2.0-8.3); Neutrophils Percent Auto 86.7 % (45-73); Platelet Count 235 X10*3/uL (160-400); Red Blood Count 4.75 X10*6/uL (4.60-5.80); Red Cell Distribution Width 18.6 % (11.0-16.0); White Blood Count 11.9 X10*3/uL (4.8-10.8)
--- NOTE | 2021-08-24 19:36 | PC.NURSE ---
Christal CNC SUPERVISOR aware of lactic, no additional orders at this time
[2021-08-24 20:28] VITALS: BP 161/68; PULSE 94; RESP 22; O2SAT 96
[2021-08-24 20:40] LABS: Reflex Lactate? Lactic Acid Added
--- NOTE | 2021-08-24 21:30 | PHA.MEDREC ---
Pharmacy Consult ? Medication Reconciliation Pharmacy has completed the medication reconciliation. Spoke to daughter Lucila at [phone] who confirmed medication list
[2021-08-24 22:03] LABS: ~Lactic Acid-LAB USE ONLY 3.5 mmol/L (0.5-2.0)
--- NOTE | 2021-08-24 22:56 | PM.IMHP ---
History of Present Illness Date of Service: 08/24/21 Chief Complaint: Gen weakness 71-year-old male with a past medical history of hypertension, hyperlipidemia, diabetes, history of myasthenia gravis, CAD, history of traumatic brain injury, ?history of cardiac arrest (patient mentions he and came back few years ago); peripheral edema on Lasix; history of bilateral leg cellulitis; presented to the hospital today with a chief complaint of generalized weakness. Patient reports that over the past few days he has been having generalized weakness; has been having increased tiredness and eyelids are droopy; reports lightheadedness and dizziness; Denies any chest pain or palpitations. Reports he has been able to eat and drink okay; Patient reports that he has this chronic leg swelling and redness; the redness has decreased. Denies any fevers at home. Denies any urinary symptoms. Reports he has been compliant with his home medications. Review of all other systems is negative except mentioned above ER course: Per ER team patient bilateral legs has circumferential redness-questioning cellulitis; also noted to have 3+ pitting edema; chest x-ray showed no evidence of edema; patient was given Lasix in the ER given concerns for peripheral edema. ProBNP was negative. Also noted to have lactic acidosis of 9.3 improved to 5.6 without intervention. Followed by lactate improved to 3.5. Chest x-ray concerning for pneumonia-patient received antibiotics; Mentioned the patient not in respiratory distress and does not appear to be in mass in a gravis flare. Admitted to the hospital for further management COUNTS INCLUDE 234 BEDS AT THE [facility] Medical History Diabetes mellitus, type 2 Hypercholesteremia Hypertension Myasthenia gravis Myocardial infarction TBI (traumatic brain injury) Social History Household Members: Family Housing: House Do you presently have visiting nurse or other home services: No Unable to assess alcohol history related to: Unknown Alcohol intake: never Patient Tobacco Use Status: Never used Tobacco Advance Directives: No Advance Directives Information Provided: No Current occupational status: retired Meds Allergies Allergy/AdvReac Type Severity Reaction Status Date / Time No Known Allergies Allergy Verified 06/11/21 13:18 [No Known Allergies*] Active Medications: Current Medications Amlodipine Besylate (Amlodipine Besylate 10 Mg Tablet) 10 mg PO DAILY PELON; Protocol Azathioprine (Azathioprine 50 Mg Tablet) 50 mg PO TID PELON Furosemide (Furosemide 40 Mg Tablet) 40 mg PO DAILY PELON; Protocol Gabapentin (Gabapentin 300 Mg Capsule) 300 mg PO BID PELON Ceftriaxone Sodium 1 gm/ (Sodium Chloride) 50 mls @ 100 mls/hr IV Q24H PELON Loperamide HCl (Loperamide Hcl 2 Mg Capsule) 2 mg PO BID PELON Metformin HCl (Metformin Hcl 1,000 Mg Tablet) 1,000 mg PO BID PELON Mycophenolate Mofetil (Mycophenolate Mofetil 250 Mg Capsule) 500 mg PO BID PELON Prednisone (Prednisone 5 Mg Tablet) 25 mg PO DAILY PELON Pyridostigmine [place] (Pyridostigmine [place] 60 Mg Tablet) 60 mg PO QID PELON Quetiapine Fumarate (Quetiapine Fumarate 25 Mg Tablet) 25 mg PO DAILY@1300 PELON Triamcinolone Acetonide (Triamcinolone Acet 0.1 % Cream 15 Gm Tube) 1 appl TOPICAL BID PELON; Protocol Valsartan (Valsartan 80 Mg Tablet) 80 mg PO DAILY PELON; Protocol Home Medications Medication Instructions Recorded Confirmed Last Taken Type amlodipine 10 mg tablet 10 mg PO DAILY 06/02/20 08/24/21 08/24/21 History azathioprine 50 mg tablet 50 mg PO TID 06/02/20 08/24/21 08/24/21 History prednisone 10 mg tablet 2.5 tab PO DAILY 06/02/20 08/24/21 08/24/21 History pyridostigmine bromide 60 mg tablet 1 tab PO QID 06/02/20 08/24/21 08/24/21 History quetiapine 25 mg tablet 1 tab PO DAILY@1300 06/02/20 08/24/21 08/24/21 History valsartan 80 mg tablet 1 tab PO DAILY 06/02/20 08/24/21 08/24/21 History blood sugar diagnostic (JoseStyle #10 ea 03/05/21 05/02/21 Unknown History Lite Strips) lancets 28 gauge (FreeStyle #100 ea 03/05/21 05/02/21 Unknown History Lancets) furosemide 40 mg tablet 1 tab PO DAILY 05/02/21 08/24/21 08/24/21 History metformin 500 mg tablet 2 tab PO BID 05/02/21 08/24/21 08/24/21 History clotrimazole 1 % topical cream 1 appl TOPICAL BID 08/24/21 08/24/21 08/24/21 History gabapentin 300 mg capsule 1 cap PO BID 08/24/21 08/24/21 08/24/21 History loperamide 2 mg capsule 1 tab PO BID 08/24/21 08/24/21 08/24/21 History mycophenolate mofetil 500 mg tablet 1 tab PO BID 08/24/21 08/24/21 08/24/21 History Physical Exam Vital Signs and Narrative: Vital Signs: Last Vital Signs Temp 98.0 F 08/24/21 19:05 Pulse 94 08/24/21 20:28 Resp 22 H 08/24/21 20:28 BP 161/68 H 08/24/21 20:28 Pulse Ox 96 08/24/21 20:28 BMI result Body Mass Index 36.0 Gen: Appears be in no acute distress. Breathing comfortably. Able to finish full sentences. HEENT: NCAT, Moist mucosa. Pulmonary: Vesicular breath sounds, fair air entry CVS: Normal S1-S2 Abdomen: BS+, Soft, Nontender Extremities: Warm well perfused; patient has 3+ pitting edema; noted mild erythema on bilateral legs in the distal part; circumferential; decreasing in size per patient; flexor diffusely tender Neuro: Alert and awake. Patient is able to elevate the eyelids more than a minute without any drooping; patient able to count of 224 in a single breath number count. Results Labs CBC and Chem 7: 08/24/21 19:22 08/24/21 16:29 Labs: Laboratory Results - last 24 hr 08/24/21 08/24/21 08/24/21 16:02 16:29 16:29 MCV MCH MCHC RDW Plt Count MPV Immature Gran % (Auto) Neut % (Auto) Lymph % (Auto) [place] % (Auto) Eos % (Auto) Baso % (Auto) Lymph # (Auto) [place] # (Auto) Eos # (Auto) Baso # (Auto) Abs Immat Gran (auto) Absolute Neuts (auto) Absolute Nucleated RBC Nucleated RBC % (auto) PT INR APTT Anion Gap 23 H Estim Creat Clear Calc 78.9 Estimated GFR > 60 POC Glucose 283 H Random Glucose 287 H Lactic Acid 9.3 H* Lactic Acid F/U @ 2Hr Calcium 9.0 D Magnesium 1.9 Total Bilirubin 0.4 Direct Bilirubin 0.2 AST 45 H D ALT 44 H Alkaline Phosphatase 40 B-Natriuretic Peptide Total Protein 6.3 L Albumin 3.6 Lipase 90 H Urine Color Urine Appearance Urine pH Ur Specific [place] Urine Protein Urine Glucose (UA) Urine Ketones Urine Blood Urine Nitrite Ur Leukocyte Esterase COVID-19 (MANISHA) COVID-19 [employer] 08/24/21 08/24/21 08/24/21 16:29 16:29 16:30 MCV MCH MCHC RDW Plt Count MPV Immature Gran % (Auto) Neut % (Auto) Lymph % (Auto) [place] % (Auto) Eos % (Auto) Baso % (Auto) Lymph # (Auto) [place] # (Auto) Eos # (Auto) Baso # (Auto) Abs Immat Gran (auto) Absolute Neuts (auto) Absolute Nucleated RBC Nucleated RBC % (auto) PT INR APTT Anion Gap Estim Creat Clear Calc Estimated GFR POC Glucose Random Glucose Lactic Acid Lactic Acid F/U @ 2Hr Calcium Magnesium Total Bilirubin Direct Bilirubin AST ALT Alkaline Phosphatase B-Natriuretic Peptide 18 Cancelled Total Protein Albumin Lipase Urine Color Urine Appearance Urine pH Ur Specific [place] Urine Protein Urine Glucose (UA) Urine Ketones Urine Blood Urine Nitrite Ur Leukocyte Esterase COVID-19 (MANISHA) Negative COVID-[employer] See Note 08/24/21 08/24/21 08/24/21 16:59 17:00 18:37 MCV MCH MCHC RDW Plt Count MPV Immature Gran % (Auto) Neut % (Auto) Lymph % (Auto) [place] % (Auto) Eos % (Auto) Baso % (Auto) Lymph # (Auto) [place] # (Auto) Eos # (Auto) Baso # (Auto) Abs Immat Gran (auto) Absolute Neuts (auto) Absolute Nucleated RBC Nucleated RBC % (auto) PT 11.2 INR 1.0 APTT Cancelled 35.4 Anion Gap Estim Creat Clear Calc Estimated GFR POC Glucose Random Glucose Lactic Acid 5.6 H* Lactic Acid F/U @ 2Hr Calcium Magnesium Total Bilirubin Direct Bilirubin AST ALT Alkaline Phosphatase B-Natriuretic Peptide Total Protein Albumin Lipase Urine Color Urine Appearance Urine pH Ur Specific [place] Urine Protein Urine Glucose (UA) Urine Ketones Urine Blood Urine Nitrite Ur Leukocyte Esterase COVID-19 (MANISHA) COVID-[employer] 08/24/21 08/24/21 08/24/21 18:57 19:22 21:20 MCV 85.9 MCH 27.2 MCHC 31.6 RDW 18.6 H Plt Count 235 MPV 9.3 L Immature Gran % (Auto) 2.6 H Neut % (Auto) 86.7 H Lymph % (Auto) 5.0 L [place] % (Auto) 5.4 Eos % (Auto) 0.1 Baso % (Auto) 0.2 Lymph # (Auto) 0.6 L [place] # (Auto) 0.6 Eos # (Auto) 0.0 Baso # (Auto) 0.0 Abs Immat Gran (auto) 0.31 H Absolute Neuts (auto) 10.4 H Absolute Nucleated RBC 0.000 Nucleated RBC % (auto) 0.0 PT INR APTT Anion Gap Estim Creat Clear Calc Estimated GFR POC Glucose Random Glucose Lactic Acid Lactic Acid F/U @ 2Hr 3.5 H* Calcium Magnesium Total Bilirubin Direct Bilirubin AST ALT Alkaline Phosphatase B-Natriuretic Peptide Total Protein Albumin Lipase Urine Color STRAW Urine Appearance CLEAR Urine pH 5.5 Ur Specific [place] 1.020 Urine Protein NEG Urine Glucose (UA) 250 H Urine Ketones NEG Urine Blood NEG Urine Nitrite NEG Ur Leukocyte Esterase NEG COVID-19 (MANISHA) COVID-19 Clin Com Imaging Radiologist's Impressions: Impressions Chest X-Ray 08/24/21 17:12 IMPRESSION: Bibasilar atelectasis with question early infiltrate in the posterior basal segment left lower lobe. Assessment and Plan (1) Edema: Status: Acute (2) Cellulitis: Status: Acute (3) Pneumonia: Status: Acute Plan 71-year-old male with a past medical history of hypertension, hyperlipidemia, diabetes, history of myasthenia gravis, CAD, history of traumatic brain injury, ?history of cardiac arrest (patient mentions he and came back few years ago); peripheral edema on Lasix; history of bilateral leg cellulitis; presented to the hospital today with a chief complaint of generalized weakness. Noted to have following Generalized weakness: Likely in setting of pneumonia. Supportive care Pneumonia: Continue ceftriaxone and azithromycin. ? Cellulitis: Patient erythema improving per patient. Patient on antibiotics. Myasthenia gravis: Patient on presentation reported eyelids drooping; currently symptomatically improved. Respiratory status is stable. On a single breath patient able to count of 224. Request status with therapy for vital capacity and NIF. Continue home azathioprine, mycophenolate, prednisone, pyridostigmine Neurology consult Lactic acidosis: Improving. Peripheral edema: Patient on Lasix. Currently chest x-ray showed no acute findings. ProBNP negative. Continue home Lasix once a lactate improves. Mild hyperkalemia: EKG showed no acute changes. Repeat BMP. DVT ppx:Lovenox Full Code. Quality Stroke Does the patient have a stroke diagnosis?: No VTE Prior VTE?: No VTE Risk Level:: Medical - moderate - high VTE Device Contraindication: Treatment Not Indicated VTE Drug Contraindication: N/A - Med Ordered
[2021-08-24 23:23] LABS: Reflex Lactate? 2 Y
[2021-08-24] MEDS: cefTRIAXone sodium 1 GM in 0.9 % Sodium Chloride 50 ML IV (23:24)
--- NOTE | 2021-08-25 | ECG_ITS ---
Test Reason : CHEST PAIN Blood Pressure : / mmHG Vent. Rate : 099 BPM Atrial Rate : 099 BPM P-R Int : 134 ms QRS Dur : 082 ms QT Int : 352 ms P-R-T Axes : 052 -20 036 degrees QTc Int : 451 ms Normal sinus rhythm Left axis deviation Otherwise Normal ECG When compared with ECG of 24-AUG-2021 16:39, No significant changes seen Referred By: Faye Knapp Electronically Signed By:LORRI GTZ
[2021-08-25 00:09] LABS: Anion Gap 15 (12-20); Blood Urea Nitrogen 23 mg/dL (9-16); Calcium 8.8 mg/dL (8.4-10.2); Carbon Dioxide 27 mmol/L (22-29); Chloride 104 mmol/L (96-108); Creatinine Clr Calc Pharmacy 102.9; Estimated Glomerular Filt Rate > 60; Glucose Random 100 mg/dL (60-115); Potassium 4.2 mmol/L (3.3-5.1); Sodium 142 mmol/L (135-145)
[2021-08-25 00:11] LABS: ~Lactic Acid-LAB USE ONLY 2.9 mmol/L (0.5-2.0)
[2021-08-25 00:24] VITALS: BP 162/86; PULSE 95; RESP 13; TEMP 36.6; O2SAT 95
--- NOTE | 2021-08-25 01:47 | PC.NURSE ---
Pt provided coffee, petty crackers and OJ per request. Pt offers no complaints of pain/discomfort.
[2021-08-25 06:39] VITALS: BP 189/75; PULSE 92; RESP 14; TEMP 36.7; O2SAT 96
[2021-08-25 06:41] LABS: MANUAL DIFF FLAG NO
[2021-08-25 06:55] LABS: Basophils Percent Auto 0.2 % (0-2); Eosinophils Absolute Auto 0.1 X10*3/uL (0.0-0.4); Eosinophils Percent Auto 0.6 % (0-4); Hematocrit 39.9 % (42.0-52.0); Hemoglobin 12.2 g/dl (14.0-18.0); Imm Gran Abs Auto 0.22 X10*3/uL (0.00-0.03); Imm Gran Pct Auto 2.3 % (0.0-0.4); Lymphocytes Absolute Auto 1.6 X10*3/uL (1.2-4.9); Lymphocytes Percent Auto 16.3 % (20-40); Mean Corpuscular HGB Conc 30.6 g/dl (31.0-36.0); Mean Corpuscular Hemoglobin 26.2 pg (27.0-33.0); Mean Corpuscular Volume 85.8 fL (80.0-98.0); Mean Platelet Volume 9.5 fL (9.4-12.4); Monocytes Absolute Auto 0.7 X10*3/uL (0.1-1.2); Monocytes Percent Auto 6.9 % (2-11); Neutrophils Absolute Auto 7.1 x10*3/uL (2.0-8.3); Neutrophils Percent Auto 73.7 % (45-73); Platelet Count 211 X10*3/uL (160-400); Red Blood Count 4.65 X10*6/uL (4.60-5.80); Red Cell Distribution Width 18.7 % (11.0-16.0); White Blood Count 9.7 X10*3/uL (4.8-10.8)
[2021-08-25 07:05] LABS: Alanine Aminotransferase 40 U/L (0-40); Albumin Level 3.5 g/dL (3.5-5.0); Alkaline Phosphatase 36 U/L (39-117); Anion Gap 17 (12-20); Aspartate Amino Transferase 33 U/L (5-37); Bilirubin Direct 0.2 mg/dL (0.0-0.5); Bilirubin Total 0.4 mg/dL (0.0-1.0); Blood Urea Nitrogen 22 mg/dL (9-16); Calcium 8.6 mg/dL (8.4-10.2); Carbon Dioxide 24 mmol/L (22-29); Chloride 104 mmol/L (96-108); Creatinine Clr Calc Pharmacy 101.5; Estimated Glomerular Filt Rate > 60; Glucose Random 98 mg/dL (60-115); Potassium 3.9 mmol/L (3.3-5.1); Sodium 141 mmol/L (135-145); Total Protein 5.8 g/dL (6.5-8.0)
--- NOTE | 2021-08-25 07:52 | PC.NURSE ---
patient away for ultrasound at this time. just ambulated with 1 assist to bathroom and back just prior to leaving for ultrasound. had bowel movement. refused to wear non-slip socks, wore his own shoes instead. pt is alert & oriented x4, with baseline stuttering speech pattern due to hx of TBI. denies complaints or any needs at this time. will medicate upon return to ED bed.
--- NOTE | 2021-08-25 09:58 | PC.NURSE ---
called pharmacy to bring medications to ED. Several medications unavailable. Pt is sleeping peacefully at this time. Will wake up to medicate upon pharmacy arrival to ED.
[2021-08-25] MEDS: mycophenolate mofetiL 250 MG CAPSULE 500 MG PO ×2 (10:46→20:30)
[2021-08-25] MEDS: azaTHIOprine 50 MG TABLET PO ×3 (10:46→20:30)
[2021-08-25] MEDS: Triamcinolone Acet 0.1 % Cream 15 GM TUBE 1 APPL TOPICAL ×2 (10:46→20:54)
[2021-08-25] MEDS: Valsartan 80 MG TABLET PO (10:47)
[2021-08-25] MEDS: Gabapentin 300 MG CAPSULE PO ×2 (10:47→20:30)
[2021-08-25] MEDS: Loperamide HCl 2 MG CAPSULE PO ×2 (10:47→20:30)
[2021-08-25] MEDS: predniSONE 5 MG TABLET 25 MG PO (10:47)
[2021-08-25] MEDS: amLODIPine Besylate 10 MG TABLET PO (10:47)
[2021-08-25] MEDS: 0.9 % Sodium Chloride Flush 3 ML SYRINGE IVFLUSH ×2 (10:48→17:45)
[2021-08-25] MEDS: Furosemide 40 MG TABLET PO (10:48)
[2021-08-25] MEDS: metFORMIN HCl 1,000 MG TABLET 1000 MG PO (10:48)
--- NOTE | 2021-08-25 12:04 | PC.NURSE ---
POC 188 per Jacquelyn, [employer] plant superintendent
[2021-08-25 13:40] LABS: Glucose, Whole Blood 176 mg/dL (60-115)
[2021-08-25] MEDS: QUEtiapine Fumarate 25 MG TABLET PO (13:45)
[2021-08-25] MEDS: Insulin Lispro 100 UNIT/ML 3 ML VIAL SUBCUT ×3 (13:45→20:58)
--- NOTE | 2021-08-25 14:35 | HO.PM.IMPN ---
Subjective Subjective Date of Service: 08/25/21 Review of Systems Follow up weakness and leg redness Feels better, leg redness and swelling has improved Physical Exam Vital Signs: Vital Signs: Last Vital Signs Temp 98.1 F 08/25/21 06:39 Pulse 92 08/25/21 06:39 Resp 14 08/25/21 06:39 BP 189/75 H 08/25/21 06:39 Pulse Ox 96 08/25/21 06:39 BMI result Body Mass Index 36.0 Appearing in no acute distress Bilateral leg edema and erythema with dry skin areas lung sounds are clear to auscultation heart regular rate rhythm, clear S1, S2 positive bowel sounds, abdomen is soft, nontender neuro patient is alert x3, no focal deficits Objective Data Active Medications Acetaminophen (Acetaminophen 325 Mg Tablet) 650 mg PO Q6H PRN PRN Reason: Pain, Mild (Pain Scale 1-3) Amlodipine Besylate (Amlodipine Besylate 10 Mg Tablet) 10 mg PO DAILY [facility]; Protocol Last Admin: 08/25/21 10:47 Dose: 10 mg Documented by: ANA M Azathioprine (Azathioprine 50 Mg Tablet) 50 mg PO TID [facility] Last Admin: 08/25/21 10:46 Dose: 50 mg Documented by: ANA M Dextrose (Dextrose 50 % 25 Gm/50 Ml Syringe) 25 gm IVPUSH Q15M PRN; Protocol PRN Reason: per Hypoglycemia Standing Ord. Enoxaparin Sodium (Enoxaparin Sodium 40 Mg/0.4 Ml Syringe) 40 mg SUBCUT Q24H [facility] Last Admin: 08/25/21 00:00 Dose: 40 mg Documented by: FREDERICK Furosemide (Furosemide 40 Mg Tablet) 40 mg PO DAILY [facility]; Protocol Last Admin: 08/25/21 10:48 Dose: 40 mg Documented by: ANA M Gabapentin (Gabapentin 300 Mg Capsule) 300 mg PO BID [facility] Last Admin: 08/25/21 10:47 Dose: 300 mg Documented by: ANA M Glucose (Glucose Gel 15 Gm Gel..Gram.) 15 gm PO Q15M PRN; Protocol PRN Reason: per Hypoglycemia Standing Ord. Ceftriaxone Sodium 1 gm/ (Sodium Chloride) 50 mls @ 100 mls/hr IV Q24H [facility] Last Infusion: 08/25/21 00:00 Dose: 0 mls/hr Documented by: FREDERICK Insulin Human Lispro (Insulin Lispro 100 Unit/Ml 3 Ml Vial) 0.1 - 10 unit SUBCUT QIDACHS [facility]; Protocol Last Admin: 08/25/21 13:45 Dose: 2 unit Documented by: REFUGIO Loperamide HCl (Loperamide Hcl 2 Mg Capsule) 2 mg PO BID [facility] Last Admin: 08/25/21 10:47 Dose: 2 mg Documented by: ANA M Melatonin (Melatonin 3 Mg Tablet) 6 mg PO BEDTIME PRN PRN Reason: Insomnia Metformin HCl (Metformin Hcl 1,000 Mg Tablet) 1,000 mg PO BID [facility] Last Admin: 08/25/21 10:48 Dose: 1,000 mg Documented by: ANA M Mycophenolate Mofetil (Mycophenolate Mofetil 250 Mg Capsule) 500 mg PO BID [facility] Last Admin: 08/25/21 10:46 Dose: 500 mg Documented by: ANA M Prednisone (Prednisone 5 Mg Tablet) 25 mg PO DAILY [facility] Last Admin: 08/25/21 10:47 Dose: 25 mg Documented by: ANA M Pyridostigmine [place] (Pyridostigmine [place] 60 Mg Tablet) 60 mg PO QID [facility] Last Admin: 08/25/21 10:46 Dose: 60 mg Documented by: ANA M Quetiapine Fumarate (Quetiapine Fumarate 25 Mg Tablet) 25 mg PO DAILY@1300 [facility] Last Admin: 08/25/21 13:45 Dose: 25 mg Documented by: REFUGIO Senna (Sennosides 8.6 Mg Tablet) 17.2 mg PO BEDTIME PRN PRN Reason: Constipation Sodium Chloride (0.9 % Sodium Chloride Flush 3 Ml Syringe) 3 ml IVFLUSH QSHIFT [facility] Last Admin: 08/25/21 10:48 Dose: 3 ml Documented by: ANA M Triamcinolone Acetonide (Triamcinolone Acet 0.1 % Cream 15 Gm Tube) 1 appl TOPICAL BID [facility]; Protocol Last Admin: 08/25/21 10:46 Dose: 1 appl Documented by: ANA M Valsartan (Valsartan 80 Mg Tablet) 80 mg PO DAILY [facility]; Protocol Last Admin: 08/25/21 10:47 Dose: 80 mg Documented by: HO.[email or web address] Labs CBC & Chem 7: 08/25/21 06:21 08/25/21 06:21 Labs: Laboratory Results - last 24 hr 08/24/21 08/24/21 08/24/21 16:02 16:29 16:29 MCV MCH MCHC RDW Plt Count MPV Immature Gran % (Auto) Neut % (Auto) Lymph % (Auto) [place] % (Auto) Eos % (Auto) Baso % (Auto) Lymph # (Auto) [place] # (Auto) Eos # (Auto) Baso # (Auto) Abs Immat Gran (auto) Absolute Neuts (auto) Absolute Nucleated RBC Nucleated RBC % (auto) PT INR APTT Anion Gap 23 H Estim Creat Clear Calc 78.9 Estimated GFR > 60 POC Glucose 283 H Random Glucose 287 H Lactic Acid 9.3 H* Lactic Acid F/U @ 2Hr Lactic Acid F/U @ 4Hr Calcium 9.0 D Magnesium 1.9 Total Bilirubin 0.4 Direct Bilirubin 0.2 AST 45 H D ALT 44 H Alkaline Phosphatase 40 B-Natriuretic Peptide Total Protein 6.3 L Albumin 3.6 Lipase 90 H Urine Color Urine Appearance Urine pH Ur Specific [place] Urine Protein Urine Glucose (UA) Urine Ketones Urine Blood Urine Nitrite Ur Leukocyte Esterase COVID-19 (MANISHA) COVID-[employer] 08/24/21 08/24/21 08/24/21 16:29 16:29 16:30 MCV MCH MCHC RDW Plt Count MPV Immature Gran % (Auto) Neut % (Auto) Lymph % (Auto) [place] % (Auto) Eos % (Auto) Baso % (Auto) Lymph # (Auto) [place] # (Auto) Eos # (Auto) Baso # (Auto) Abs Immat Gran (auto) Absolute Neuts (auto) Absolute Nucleated RBC Nucleated RBC % (auto) PT INR APTT Anion Gap Estim Creat Clear Calc Estimated GFR POC Glucose Random Glucose Lactic Acid Lactic Acid F/U @ 2Hr Lactic Acid F/U @ 4Hr Calcium Magnesium Total Bilirubin Direct Bilirubin AST ALT Alkaline Phosphatase B-Natriuretic Peptide 18 Cancelled Total Protein Albumin Lipase Urine Color Urine Appearance Urine pH Ur Specific [place] Urine Protein Urine Glucose (UA) Urine Ketones Urine Blood Urine Nitrite Ur Leukocyte Esterase COVID-19 (MANISHA) Negative COVID-[employer] See Note 08/24/21 08/24/21 08/24/21 16:59 17:00 18:37 MCV MCH MCHC RDW Plt Count MPV Immature Gran % (Auto) Neut % (Auto) Lymph % (Auto) [place] % (Auto) Eos % (Auto) Baso % (Auto) Lymph # (Auto) [place] # (Auto) Eos # (Auto) Baso # (Auto) Abs Immat Gran (auto) Absolute Neuts (auto) Absolute Nucleated RBC Nucleated RBC % (auto) PT 11.2 INR 1.0 APTT Cancelled 35.4 Anion Gap Estim Creat Clear Calc Estimated GFR POC Glucose Random Glucose Lactic Acid 5.6 H* Lactic Acid F/U @ 2Hr Lactic Acid F/U @ 4Hr Calcium Magnesium Total Bilirubin Direct Bilirubin AST ALT Alkaline Phosphatase B-Natriuretic Peptide Total Protein Albumin Lipase Urine Color Urine Appearance Urine pH Ur Specific [place] Urine Protein Urine Glucose (UA) Urine Ketones Urine Blood Urine Nitrite Ur Leukocyte Esterase COVID-19 (MANISHA) COVID-[employer] 08/24/21 08/24/21 08/24/21 18:57 19:22 21:20 MCV 85.9 MCH 27.2 MCHC 31.6 RDW 18.6 H Plt Count 235 MPV 9.3 L Immature Gran % (Auto) 2.6 H Neut % (Auto) 86.7 H Lymph % (Auto) 5.0 L [place] % (Auto) 5.4 Eos % (Auto) 0.1 Baso % (Auto) 0.2 Lymph # (Auto) 0.6 L [place] # (Auto) 0.6 Eos # (Auto) 0.0 Baso # (Auto) 0.0 Abs Immat Gran (auto) 0.31 H Absolute Neuts (auto) 10.4 H Absolute Nucleated RBC 0.000 Nucleated RBC % (auto) 0.0 PT INR APTT Anion Gap Estim Creat Clear Calc Estimated GFR POC Glucose Random Glucose Lactic Acid Lactic Acid F/U @ 2Hr 3.5 H* Lactic Acid F/U @ 4Hr Calcium Magnesium Total Bilirubin Direct Bilirubin AST ALT Alkaline Phosphatase B-Natriuretic Peptide Total Protein Albumin Lipase Urine Color STRAW Urine Appearance CLEAR Urine pH 5.5 Ur Specific [place] 1.020 Urine Protein NEG Urine Glucose (UA) 250 H Urine Ketones NEG Urine Blood NEG Urine Nitrite NEG Ur Leukocyte Esterase NEG COVID-19 (MANISHA) COVID-[employer] 08/24/21 08/24/21 08/25/21 23:31 23:31 06:21 MCV 85.8 MCH 26.2 L MCHC 30.6 L RDW 18.7 H Plt Count 211 MPV 9.5 Immature Gran % (Auto) 2.3 H Neut % (Auto) 73.7 H Lymph % (Auto) 16.3 L [place] % (Auto) 6.9 Eos % (Auto) 0.6 Baso % (Auto) 0.2 Lymph # (Auto) 1.6 [place] # (Auto) 0.7 Eos # (Auto) 0.1 Baso # (Auto) 0.0 Abs Immat Gran (auto) 0.22 H Absolute Neuts (auto) 7.1 Absolute Nucleated RBC 0.000 Nucleated RBC % (auto) 0.0 PT INR APTT Anion Gap 15 Estim Creat Clear Calc 102.9 Estimated GFR > 60 POC Glucose Random Glucose 100 D Lactic Acid Lactic Acid F/U @ 2Hr Lactic Acid F/U @ 4Hr 2.9 H* Calcium 8.8 Magnesium Total Bilirubin Direct Bilirubin AST ALT Alkaline Phosphatase B-Natriuretic Peptide Total Protein Albumin Lipase Urine Color Urine Appearance Urine pH Ur Specific [place] Urine Protein Urine Glucose (UA) Urine Ketones Urine Blood Urine Nitrite Ur Leukocyte Esterase COVID-19 (MANISHA) COVID-[employer] 08/25/21 08/25/21 08/25/21 06:21 06:21 13:35 MCV MCH MCHC RDW Plt Count MPV Immature Gran % (Auto) Neut % (Auto) Lymph % (Auto) [place] % (Auto) Eos % (Auto) Baso % (Auto) Lymph # (Auto) [place] # (Auto) Eos # (Auto) Baso # (Auto) Abs Immat Gran (auto) Absolute Neuts (auto) Absolute Nucleated RBC Nucleated RBC % (auto) PT INR APTT Anion Gap 17 Estim Creat Clear Calc 101.5 Estimated GFR > 60 POC Glucose 176 H Random Glucose 98 Lactic Acid Lactic Acid F/U @ 2Hr Lactic Acid F/U @ 4Hr Calcium 8.6 Magnesium Total Bilirubin 0.4 Direct Bilirubin 0.2 AST 33 ALT 40 Alkaline Phosphatase 36 L B-Natriuretic Peptide Total Protein 5.8 L Albumin 3.5 Lipase Urine Color Urine Appearance Urine pH Ur Specific [place] Urine Protein Urine Glucose (UA) Urine Ketones Urine Blood Urine Nitrite Ur Leukocyte Esterase COVID-19 (MANISHA) COVID-19 [employer] Assessment and Plan (1) Obesity: Status: Acute (2) Cellulitis of leg: Status: Resolved (3) Hyperglycemia: Status: Acute (4) Cellulitis: Status: Acute Plan 70-year-old gentleman with past medical history significant for hypertension, diabetes, myasthenia gravis on prednisone 25 mg by mouth daily along with azathioprine and pyridostigmine? presented to [facility] due to few days history of bilateral lower extremity edema redness and droopy eyes patient is now being admitted due to bilateral lower extremity cellulitis, and concern for impending myasthenia crisis. Bilateral lower extremity cellulitis Swelling and redness significantly improved, no evidence of CHF likely fluid overload with prednisone Continue IV Rocephin ID consult blood culture negative so far Will give IV Lasix due to significant swelling for 1 more day renal function stable Hyperglycemia with mild AG metabolic acidosis Gap closed electrolytes normalized continue insulin sliding scale and Lantus patient prior hemoglobin A1c are greater than 8 suggestive of poor blood sugar control and also hyperglycemia related to prednisone Diabetic diet Myasthenia gravis No acute exacerbation, but concern for worsening symptoms due to acute infection, vital capacity 2.6, NIF 60, on admission, no respiratory distress Continue home medications Obtain neurological consult if noted to have worsening symptoms, will continue to follow spirometry Uncontrolled blood pressure Blood pressure improving continue amlodipine 10 mg and valsartan 80 mg daily follow blood pressure closely and adjust medication Obesity. BMI 36.0 Recommend low-calorie diet likely contributing to hyperglycemia and hyperlipidemia. Mild elevated LFTs no abdominal pain follow labs, continue statins Mood disorder continue Seroquel DVT prophylaxis with heparin Attending Dr. bautista Full code Quality Stroke Does the patient have a stroke diagnosis?: No VTE Prior VTE?: No VTE Risk Level:: Medical - moderate - high VTE Device Contraindication: Treatment Not Indicated VTE Drug Contraindication: N/A - Med Ordered
[2021-08-25 15:20] LABS: Troponin-I High Sensitivity 16.7 ng/L (<3.5-35.0)
[2021-08-25 15:21] LABS: Lactic Acid 6.9 mmol/L (0.5-2.0)
--- NOTE | 2021-08-25 15:27 | PC.NURSE ---
call x1 for report, told they will call back.
--- NOTE | 2021-08-25 15:32 | P.CNNE_ITS ---
History of Present Illness Data of Consult Service Date: 08/25/21 Primary Care Provider: Justino Lara MD [facility] Reason for consult: Myasthenia gravis 71 years old man with antibody positive myasthenia gravis with multiple hospitalization for myasthenia gravis excessive [place] rios and treatments with IVIG. He also has been taking multiple oral medicines for control. He came to hospital with generalized weakness and stating that his eyes were closing up. He was also complaining of bilateral leg swelling. He suffered from cellulitis and there was suspicion that that was contributing to it. There was no obvious change in speech or swallowing pattern. Review of Systems Review of Systems: No recent cold or flu-like illness PMFSH Past Medical History Medical History Diabetes mellitus, type 2 Hypercholesteremia Hypertension Myasthenia gravis Myocardial infarction TBI (traumatic brain injury) Social History Social History Household Members: Family Housing: House Do you presently have visiting nurse or other home services: No Unable to assess alcohol history related to: Unknown Alcohol intake: never Patient Tobacco Use Status: Never used Tobacco Advance Directives: No Advance Directives Information Provided: No Current occupational status: retired Meds Allergies Allergy/AdvReac Type Severity Reaction Status Date / Time No Known Allergies Allergy Verified 06/11/21 13:18 [No Known Allergies*] Active Medications: Current Medications Acetaminophen (Acetaminophen 325 Mg Tablet) 650 mg PO Q6H PRN PRN Reason: Pain, Mild (Pain Scale 1-3) Amlodipine Besylate (Amlodipine Besylate 10 Mg Tablet) 10 mg PO DAILY [facility]; Protocol Last Admin: 08/25/21 10:47 Dose: 10 mg Documented by: Azathioprine (Azathioprine 50 Mg Tablet) 50 mg PO TID [facility] Last Admin: 08/25/21 10:46 Dose: 50 mg Documented by: Dextrose (Dextrose 50 % 25 Gm/50 Ml Syringe) 25 gm IVPUSH Q15M PRN; Protocol PRN Reason: per Hypoglycemia Standing Ord. Enoxaparin Sodium (Enoxaparin Sodium 40 Mg/0.4 Ml Syringe) 40 mg SUBCUT Q24H [facility] Last Admin: 08/25/21 00:00 Dose: 40 mg Documented by: Furosemide (Furosemide 40 Mg Tablet) 40 mg PO DAILY [facility]; Protocol Last Admin: 08/25/21 10:48 Dose: 40 mg Documented by: Gabapentin (Gabapentin 300 Mg Capsule) 300 mg PO BID [facility] Last Admin: 08/25/21 10:47 Dose: 300 mg Documented by: Glucose (Glucose Gel 15 Gm Gel..Gram.) 15 gm PO Q15M PRN; Protocol PRN Reason: per Hypoglycemia Standing Ord. Ceftriaxone Sodium 1 gm/ (Sodium Chloride) 50 mls @ 100 mls/hr IV Q24H [facility] Last Infusion: 08/25/21 00:00 Dose: Infused Documented by: Sodium Chloride (Ns) 1,000 mls @ 999 mls/hr IVCONT .Q1H1M [facility] Stop: 08/25/21 17:30 Insulin Human Lispro (Insulin Lispro 100 Unit/Ml 3 Ml Vial) 0.1 - 10 unit SUBCUT QIDACHS [facility]; Protocol Last Admin: 08/25/21 13:45 Dose: 2 unit Documented by: Loperamide HCl (Loperamide Hcl 2 Mg Capsule) 2 mg PO BID [facility] Last Admin: 08/25/21 10:47 Dose: 2 mg Documented by: Melatonin (Melatonin 3 Mg Tablet) 6 mg PO BEDTIME PRN PRN Reason: Insomnia Mycophenolate Mofetil (Mycophenolate Mofetil 250 Mg Capsule) 500 mg PO BID [facility] Last Admin: 08/25/21 10:46 Dose: 500 mg Documented by: Prednisone (Prednisone 20 Mg Tablet) 20 mg PO DAILY [facility] Prednisone (Prednisone 5 Mg Tablet) 5 mg PO DAILY [facility] Pyridostigmine [place] (Pyridostigmine [place] 60 Mg Tablet) 60 mg PO QID [facility] Last Admin: 08/25/21 10:46 Dose: 60 mg Documented by: Quetiapine Fumarate (Quetiapine Fumarate 25 Mg Tablet) 25 mg PO DAILY@1300 [facility] Last Admin: 08/25/21 13:45 Dose: 25 mg Documented by: Senna (Sennosides 8.6 Mg Tablet) 17.2 mg PO BEDTIME PRN PRN Reason: Constipation Sodium Chloride (0.9 % Sodium Chloride Flush 3 Ml Syringe) 3 ml IVFLUSH QSHIFT [facility] Last Admin: 08/25/21 10:48 Dose: 3 ml Documented by: Triamcinolone Acetonide (Triamcinolone Acet 0.1 % Cream 15 Gm Tube) 1 appl TOPICAL BID [facility]; Protocol Last Admin: 08/25/21 10:46 Dose: 1 appl Documented by: Valsartan (Valsartan 80 Mg Tablet) 80 mg PO DAILY [facility]; Protocol Last Admin: 08/25/21 10:47 Dose: 80 mg Documented by: Home Medications Medication Instructions Recorded Confirmed Last Taken Type amlodipine 10 mg tablet 10 mg PO DAILY 06/02/20 08/24/21 08/24/21 History azathioprine 50 mg tablet 50 mg PO TID 06/02/20 08/24/21 08/24/21 History prednisone 10 mg tablet 2.5 tab PO DAILY 06/02/20 08/24/21 08/24/21 History pyridostigmine bromide 60 mg tablet 1 tab PO QID 06/02/20 08/24/21 08/24/21 History quetiapine 25 mg tablet 1 tab PO DAILY@1300 06/02/20 08/24/21 08/24/21 History valsartan 80 mg tablet 1 tab PO DAILY 06/02/20 08/24/21 08/24/21 History blood sugar diagnostic (FreeStyle #10 ea 03/05/21 05/02/21 Unknown History Lite Strips) lancets 28 gauge (FreeStyle #100 ea 03/05/21 05/02/21 Unknown History Lancets) furosemide 40 mg tablet 1 tab PO DAILY 05/02/21 08/24/21 08/24/21 History metformin 500 mg tablet 2 tab PO BID 05/02/21 08/24/21 08/24/21 History clotrimazole 1 % topical cream 1 appl TOPICAL BID 08/24/21 08/24/21 08/24/21 History gabapentin 300 mg capsule 1 cap PO BID 08/24/21 08/24/21 08/24/21 History loperamide 2 mg capsule 1 tab PO BID 08/24/21 08/24/21 08/24/21 History mycophenolate mofetil 500 mg tablet 1 tab PO BID 08/24/21 08/24/21 08/24/21 History Physical Exam Vital Signs: Vital Signs: Last Vital Signs Temp 98.1 F 08/25/21 06:39 Pulse 92 08/25/21 06:39 Resp 14 08/25/21 06:39 BP 189/75 H 08/25/21 06:39 Pulse Ox 96 08/25/21 06:39 BMI result Body Mass Index 36.0 Neuro: Other: he was alert and awake with sometime normal and sometime structuring type of speech. When I arrived he was talking normally but after of a minute of conversation he started to stutter. Face was symmetrical. There was minimal bilateral ptosis. Deep tendon reflexes were slightly on the brisk side with flat plantars. Exam was also limited because of significant swelling and erythema of legs and rash on feet. Results Labs CBC & Chem 7: 08/25/21 06:21 08/25/21 06:21 Labs: Short CBC 08/24/21 08/25/21 Range/Units 19:22 06:21 WBC 11.9 H 9.7 (4.8-10.8) X10*3/uL Hgb 12.9 L 12.2 L (14.0-18.0) g/dl Hct 40.8 L 39.9 L (42.0-52.0) % Plt Count 235 211 (160-400) X10*3/uL BMP 08/24/21 08/24/21 08/25/21 16:29 23:31 06:21 Sodium 138 142 141 Potassium 5.5 H D 4.2 D 3.9 Chloride 102 104 104 Carbon Dioxide 19 L 27 24 BUN 22 H 23 H 22 H Creatinine 0.99 0.76 0.77 Calcium 9.0 D 8.8 8.6 Liver Function 08/24/21 08/25/21 Range/Units 16:29 06:21 Total Bilirubin 0.4 0.4 (0.0-1.0) mg/dL Direct Bilirubin 0.2 0.2 (0.0-0.5) mg/dL AST 45 H D 33 (5-37) U/L ALT 44 H 40 (0-40) U/L Alkaline Phosphatase 40 36 L (39-117) U/L Albumin 3.6 3.5 (3.5-5.0) g/dL Urine 08/24/21 Range/Units 18:57 Urine Color STRAW Urine Appearance CLEAR Urine pH 5.5 (5.0-8.0) Ur Specific [place] 1.020 (1.005-1.025) Urine Protein NEG (NEG-TRACE) MG/DL Urine Glucose (UA) 250 H (NEG) MG/DL Assessment and Plan (1) Myasthenia gravis: Status: Acute 71 years old man with difficult to treat myasthenia gravis. He came to hospital with generalized weakness and complaining of eyes closing up on him. He had multiple previous hospitalization with excess or [place] rios. He has been taking multiple overall medicines. His last interaction with Dr. Hein suggested that he was taking combination of mycophenylate 500 mg twice a day, azathioprine and 50 mg 3 times a day, pyridostigmine 60 mg 4 times a day, and prednisone 10 mg twice a day. His examination is somewhat difficult to interpret because of significant leg swelling. There is an element of hyperreflexia and with his somewhat confused mental status, I would recommend a noncontrast MRI of brain to evaluate his central nervous system. Otherwise, continue his baseline medicines and consider treatment with IVIG 400 milligram/kg per day for 5 days. Procedures Date of Service Date of Service: 08/25/21
--- NOTE | 2021-08-25 15:39 | MHC.CM.PN ---
PATIENT WITH PHLEBOTOMY AND RN AT TIME OF IMM DISCUSSION. THIS EMERGENCY OPERATOR SIGNED AND LEFT COPY IN CHART. ORIGINAL WITH BELONGINGS. UPON RETURN TO PATIENT'S ROOM, HE IS CURRENTLY ASLEEP. HE DOES NOT RESPOND TO THIS EMERGENCY OPERATOR'S ATTEMPTS TO COMPLETE ASSESSMENT. HCP IS ON FILE AND VERIFIED. OF THIS NOTE, IT IS UNCLEAR IF PATIENT IS COVID-19 VACCINATED. CASE MANAGEMENT FOLLOWING. NOTE IN EXPANSE INDICATES PATIENT IS READY FOR TRANSFER TO THE FLOORS IMM 08/25 IN CHART.
[2021-08-25 16:40] VITALS: BP 157/61; PULSE 99; RESP 18; TEMP 36.6; O2SAT 98
--- NOTE | 2021-08-25 16:44 | PC.NURSE ---
Pt alert and oriented x4, calm and cooperative. Pt denies pain at this time. Vitals stable. IV intact. Pt being admitted. Report given to [facility] RN by MADELINE Sosa.
[2021-08-25 16:54] LABS: Reflex Lactate? Lactic Acid Added
[2021-08-25 17:31] LABS: ~Lactic Acid-LAB USE ONLY 7.3 mmol/L (0.5-2.0)
[2021-08-25 17:50] LABS: Glucose, Whole Blood 305 mg/dL (60-115)
[2021-08-25] MEDS: 0.9 % Sodium Chloride 1,000 ML 999 ML IVCONT (18:18)
[2021-08-25 19:01] VITALS: BP 178/81; PULSE 106; RESP 20; TEMP 36.2; O2SAT 96
[2021-08-25 19:13] LABS: Reflex Lactate? 2 Y
--- NOTE | 2021-08-25 19:43 | PC.NURSE ---
Patient transferred from ED to room 444 at 1700 today, the dose that was due at 1300 of Pyridostigmine [place] was not given as the next dose was scheduled at 1700. Azathioprine was do at 1500 and was administered late at 1745 after confirming with the pharmacy that it can be given late. NS bolus ordered for 1500 was also started late and provider was notified. RN coming on was also notified that medication was given late.
[2021-08-25 20:00] LABS: Glucose, Whole Blood 295 mg/dL (60-115)
[2021-08-25 20:52] LABS: ~Lactic Acid-LAB USE ONLY 7.8 mmol/L (0.5-2.0)
[2021-08-25 22:59] VITALS: PULSE 99; RESP 20; TEMP 36.4; O2SAT 98
[2021-08-25] MEDS: Enoxaparin Sodium 40 MG/0.4 ML SYRINGE SUBCUT ×2 (23:52)
[2021-08-25] MEDS: cefTRIAXone sodium 1 GM in 0.9 % Sodium Chloride 50 ML IV (23:53)
[2021-08-26 03:36] VITALS: BP 170/75; PULSE 86; RESP 17; TEMP 36.4; O2SAT 95
[2021-08-26 06:28] LABS: Hematocrit 37.9 % (42.0-52.0); Hemoglobin 11.7 g/dl (14.0-18.0); Mean Corpuscular HGB Conc 30.9 g/dl (31.0-36.0); Mean Corpuscular Hemoglobin 26.5 pg (27.0-33.0); Mean Corpuscular Volume 85.9 fL (80.0-98.0); Mean Platelet Volume 9.7 fL (9.4-12.4); Platelet Count 203 X10*3/uL (160-400); Red Blood Count 4.41 X10*6/uL (4.60-5.80); Red Cell Distribution Width 18.6 % (11.0-16.0); White Blood Count 8.1 X10*3/uL (4.8-10.8)
[2021-08-26 06:56] LABS: Anion Gap 15 (12-20); Blood Urea Nitrogen 20 mg/dL (9-16); Calcium 8.4 mg/dL (8.4-10.2); Carbon Dioxide 24 mmol/L (22-29); Chloride 104 mmol/L (96-108); Creatinine Clr Calc Pharmacy 100.2; Estimated Glomerular Filt Rate > 60; Glucose Random 182 mg/dL (60-115); Potassium 3.7 mmol/L (3.3-5.1); Sodium 139 mmol/L (135-145)
[2021-08-26 07:10] VITALS: BP 155/70; PULSE 75; RESP 20; TEMP 36.2; O2SAT 95
[2021-08-26 07:11] LABS: Glucose, Whole Blood 132 mg/dL (60-115)
[2021-08-26] MEDS: mycophenolate mofetiL 250 MG CAPSULE 500 MG PO ×2 (08:12→22:24)
[2021-08-26] MEDS: 0.9 % Sodium Chloride Flush 3 ML SYRINGE IVFLUSH (08:13)
[2021-08-26] MEDS: Valsartan 80 MG TABLET PO (08:13)
[2021-08-26] MEDS: predniSONE 5 MG TABLET PO (08:13)
[2021-08-26] MEDS: Loperamide HCl 2 MG CAPSULE PO ×2 (08:13→22:24)
[2021-08-26] MEDS: predniSONE 20 MG TABLET PO (08:13)
[2021-08-26] MEDS: 0.9 % Sodium Chloride 1,000 ML 100 ML IVCONT (08:13)
[2021-08-26] MEDS: azaTHIOprine 50 MG TABLET PO ×3 (08:14→22:24)
[2021-08-26] MEDS: amLODIPine Besylate 10 MG TABLET PO (08:14)
[2021-08-26] MEDS: Gabapentin 300 MG CAPSULE PO ×2 (08:14→22:23)
[2021-08-26 09:06] LABS: Procalcitonin 0.06 ng/mL
[2021-08-26 09:46] LABS: Lactic Acid 5.3 mmol/L (0.5-2.0)
[2021-08-26 11:17] LABS: Reflex Lactate? Lactic Acid Added
[2021-08-26 11:58] VITALS: BP 154/71; PULSE 83; RESP 20; TEMP 37.1; O2SAT 96
[2021-08-26 12:05] LABS: Glucose, Whole Blood 293 mg/dL (60-115)
[2021-08-26] MEDS: Insulin Lispro 100 UNIT/ML 3 ML VIAL SUBCUT ×3 (12:14→22:24)
[2021-08-26] MEDS: Triamcinolone Acet 0.1 % Cream 15 GM TUBE 1 APPL TOPICAL ×2 (12:21→22:25)
[2021-08-26] MEDS: diphenhydrAMINE HCL 50 MG/ML VIAL 25 MG IVPUSH (12:54)
[2021-08-26] MEDS: Acetaminophen 325 MG TABLET 650 MG PO (12:54)
[2021-08-26] MEDS: QUEtiapine Fumarate 25 MG TABLET PO (14:24)
[2021-08-26] MEDS: Immun Glob G(IgG)/Gly/IGA Ov50 300 ML IV (14:40)
--- NOTE | 2021-08-26 14:56 | MHC.CM.PN ---
met with pt who suggests that i ispeak with his his reports that he has 22 hrs a [facility] from [facility] ,he has a psychiatrist that sees him every tues he is vax x3 and will family transpport home
[2021-08-26 15:00] VITALS: BP 178/75; PULSE 106; RESP 20; TEMP 37.1; O2SAT 96
--- NOTE | 2021-08-26 15:06 | HO.PM.IMPN ---
Subjective Subjective Date of Service: 08/26/21 Interval History: Myasthenia gravis flare Review of Systems Weakness and eyes closing similar to yesterday Denies any chest pain or shortness of breath or abdominal pain or fever or chills Physical Exam Vital Signs: Vital Signs: Last Vital Signs Temp 98.8 F 08/26/21 11:58 Pulse 83 08/26/21 11:58 Resp 20 08/26/21 11:58 BP 154/71 H 08/26/21 11:58 Pulse Ox 96 08/26/21 11:58 BMI result Body Mass Index 36.0 Appearance: Alert.? Oriented X3.? not in distress.? cvs: rrr, [id number] , no murmur res: clear to auscultation ,no rhonchii or wheezing abd: no rebound or guarding ,nt, bs present. ext pulses present , no cyanosis ,Gait well balanced well coordinated. neuro: awake and alert with sometime normal and sometime structuring type of speech.? started normally then started to stutter.? Face was symmetrical.? mild bilateral ptosis.? moves all ext mild rash on lower legs improvin Objective Data Active Medications Acetaminophen (Acetaminophen 325 Mg Tablet) 650 mg PO Q6H PRN PRN Reason: Pain, Mild (Pain Scale 1-3) Acetaminophen (Acetaminophen 325 Mg Tablet) 650 mg PO DAILY@1230 [facility] Stop: 08/30/21 12:31 Last Admin: 08/26/21 12:54 Dose: 650 mg Documented by: FIDENCIO Amlodipine Besylate (Amlodipine Besylate 10 Mg Tablet) 10 mg PO DAILY [facility]; Protocol Last Admin: 08/26/21 08:14 Dose: 10 mg Documented by: FIDENCIO Azathioprine (Azathioprine 50 Mg Tablet) 50 mg PO TID [facility] Last Admin: 08/26/21 14:24 Dose: 50 mg Documented by: FIDENCIO Dextrose (Dextrose 50 % 25 Gm/50 Ml Syringe) 25 gm IVPUSH Q15M PRN; Protocol PRN Reason: per Hypoglycemia Standing Ord. Diphenhydramine HCl (Diphenhydramine Hcl 50 Mg/Ml Vial) 25 mg IVPUSH DAILY@1230 [facility] Stop: 08/30/21 12:31 Last Admin: 08/26/21 12:54 Dose: 25 mg Documented by: FIDENCIO Enoxaparin Sodium (Enoxaparin Sodium 40 Mg/0.4 Ml Syringe) 40 mg SUBCUT Q24H [facility] Last Admin: 08/25/21 23:52 Dose: 40 mg Documented by: TERESITA Furosemide (Furosemide 40 Mg Tablet) 40 mg PO DAILY [facility]; Protocol Last Admin: 08/25/21 10:48 Dose: 40 mg Documented by: ANA M Gabapentin (Gabapentin 300 Mg Capsule) 300 mg PO BID [facility] Last Admin: 08/26/21 08:14 Dose: 300 mg Documented by: FIDENCIO Glucose (Glucose Gel 15 Gm Gel..Gram.) 15 gm PO Q15M PRN; Protocol PRN Reason: per Hypoglycemia Standing Ord. Ceftriaxone Sodium 1 gm/ (Sodium Chloride) 50 mls @ 100 mls/hr IV Q24H [facility] Last Infusion: 08/26/21 00:48 Dose: 0 mls/hr Documented by: TERESITA Sodium Chloride (Ns) 1,000 mls @ 100 mls/hr IVCONT .Q10H [facility] Last Admin: 08/26/21 08:13 Dose: 100 mls/hr Documented by: FIDENCIO Immune Globulin (Gammagard 10%) 300 mls @ 42 mls/hr IV DAILY@1415 [facility] Stop: 08/30/21 21:24 Last Admin: 08/26/21 14:40 Dose: 42 mls/hr Documented by: FIDENCIO Immune Globulin (Gammagard 10%) 50 mls @ 42 mls/hr IV DAILY@1300 [facility] Stop: 08/30/21 14:12 Last Infusion: 08/26/21 14:39 Dose: 0 mls/hr Documented by: FIDENCIO Insulin Human Lispro (Insulin Lispro 100 Unit/Ml 3 Ml Vial) 0.1 - 10 unit SUBCUT QIDACHS [facility]; Protocol Last Admin: 08/26/21 12:14 Dose: 6 unit Documented by: FIDENCIO Loperamide HCl (Loperamide Hcl 2 Mg Capsule) 2 mg PO BID [facility] Last Admin: 08/26/21 08:13 Dose: 2 mg Documented by: FIDENCIO Melatonin (Melatonin 3 Mg Tablet) 6 mg PO BEDTIME PRN PRN Reason: Insomnia Mycophenolate Mofetil (Mycophenolate Mofetil 250 Mg Capsule) 500 mg PO BID [facility] Last Admin: 08/26/21 08:12 Dose: 500 mg Documented by: FIDENCIO Prednisone (Prednisone 20 Mg Tablet) 20 mg PO DAILY [facility] Last Admin: 08/26/21 08:13 Dose: 20 mg Documented by: FIDENCIO Prednisone (Prednisone 5 Mg Tablet) 5 mg PO DAILY [facility] Last Admin: 08/26/21 08:13 Dose: 5 mg Documented by: FIDENCIO Pyridostigmine [place] (Pyridostigmine [place] 60 Mg Tablet) 60 mg PO QID [facility] Last Admin: 08/26/21 14:24 Dose: 60 mg Documented by: FIDENCIO Quetiapine Fumarate (Quetiapine Fumarate 25 Mg Tablet) 25 mg PO DAILY@1300 [facility] Last Admin: 08/26/21 14:24 Dose: 25 mg Documented by: FIDENCIO Senna (Sennosides 8.6 Mg Tablet) 17.2 mg PO BEDTIME PRN PRN Reason: Constipation Sodium Chloride (0.9 % Sodium Chloride Flush 3 Ml Syringe) 3 ml IVFLUSH QSHIFT [facility] Last Admin: 08/26/21 08:13 Dose: 3 ml Documented by: FIDENCIO Triamcinolone Acetonide (Triamcinolone Acet 0.1 % Cream 15 Gm Tube) 1 appl TOPICAL BID [facility]; Protocol Last Admin: 08/26/21 12:21 Dose: 1 appl Documented by: FIDENCIO Valsartan (Valsartan 80 Mg Tablet) 80 mg PO DAILY [facility]; Protocol Last Admin: 08/26/21 08:13 Dose: 80 mg Documented by: FIDENCIO Labs CBC & Chem 7: 08/26/21 05:33 08/26/21 05:33 Labs: Laboratory Results - last 24 hr 08/25/21 08/25/21 08/25/21 14:51 17:10 17:44 MCV MCH MCHC RDW Plt Count MPV Absolute Nucleated RBC Nucleated RBC % (auto) Anion Gap Estim Creat Clear Calc Estimated GFR POC Glucose 305 H Random Glucose Lactic Acid 6.9 H* Lactic Acid F/U @ 2Hr 7.3 H* Lactic Acid F/U @ 4Hr Calcium Procalcitonin 08/25/21 08/25/21 08/26/21 19:35 19:46 05:33 MCV 85.9 MCH 26.5 L MCHC 30.9 L RDW 18.6 H Plt Count 203 MPV 9.7 Absolute Nucleated RBC 0.000 Nucleated RBC % (auto) 0.0 Anion Gap Estim Creat Clear Calc Estimated GFR POC Glucose 295 H Random Glucose Lactic Acid Lactic Acid F/U @ 2Hr Lactic Acid F/U @ 4Hr 7.8 H* Calcium Procalcitonin 08/26/21 08/26/21 08/26/21 05:33 05:33 07:02 MCV MCH MCHC RDW Plt Count MPV Absolute Nucleated RBC Nucleated RBC % (auto) Anion Gap 15 Estim Creat Clear Calc 100.2 Estimated GFR > 60 POC Glucose 132 H Random Glucose 182 H D Lactic Acid Lactic Acid F/U @ 2Hr Lactic Acid F/U @ 4Hr Calcium 8.4 Procalcitonin 0.06 08/26/21 08/26/21 09:08 12:00 MCV MCH MCHC RDW Plt Count MPV Absolute Nucleated RBC Nucleated RBC % (auto) Anion Gap Estim Creat Clear Calc Estimated GFR POC Glucose 293 H Random Glucose Lactic Acid 5.3 H* Lactic Acid F/U @ 2Hr Lactic Acid F/U @ 4Hr Calcium Procalcitonin Microbiology Microbiology Results: Microbiology 08/24/21 16:59 Blood Culture - Preliminary Blood - Venous No growth after 24 hours. 08/24/21 16:47 Blood Culture - Preliminary Blood - Venous No growth after 24 hours. Assessment and Plan (1) Myasthenia gravis: Status: Acute (2) Hyperglycemia: Status: Acute Plan 70-year-old gentleman with past medical history significant for hypertension, diabetes, myasthenia gravis on prednisone 25 mg by mouth daily along with azathioprine and pyridostigmine? presented to [facility] due to few days history of bilateral lower extremity edema redness and droopy eyes patient is now being admitted due to bilateral lower extremity cellulitis, and concern for impending myasthenia crisis. 1.Myasthenia gravis No acute exacerbation, but concern for worsening symptoms due to acute infection, vital capacity 2.6, no respiratory distress. follow spirometry Continue home medications neuro : started on ivig for 1/5 day .continue mycophenolate, prednisone, pyridostigmine, azt. 2.Dm uncontrolled : fs from 130-290's prior hemoglobin A1c are greater than 8 suggestive of poor blood sugar control and also hyperglycemia related to prednisone Gap closed electrolytes normalized Diabetic diet continue insulin sliding scale adjusted and Lantus 3.Bilateral lower extremity cellulitis-? less likely Swelling and redness significantly improved, no evidence of CHF likely fluid overload with prednisone blood culture negative so far Continue IV Rocephin ID consult 4htn: Blood pressure improving continue amlodipine 10 mg and valsartan 80 mg daily, added metoprolol follow blood pressure closely and adjust medication 5.Obesity. BMI 36.0 Recommend low-calorie diet likely contributing to hyperglycemia and hyperlipidemia. 6.Mild elevated LFTs no abdominal pain follow labs, continue statins 7.Mood disorder continue Seroquel DVT prophylaxis with heparin Quality Stroke Does the patient have a stroke diagnosis?: No VTE Prior VTE?: No VTE Risk Level:: Medical - moderate - high VTE Device Contraindication: Treatment Not Indicated VTE Drug Contraindication: N/A - Med Ordered
[2021-08-26 15:19] LABS: Cancel Lactic Acid Canceled
[2021-08-26 16:00] LABS: Glucose, Whole Blood 345 mg/dL (60-115)
[2021-08-26 18:55] VITALS: BP 153/69; PULSE 80; RESP 20; TEMP 36.2; O2SAT 93
[2021-08-26 19:39] LABS: Glucose, Whole Blood 244 mg/dL (60-115)
[2021-08-26] MEDS: Enoxaparin Sodium 40 MG/0.4 ML SYRINGE SUBCUT (22:22)
[2021-08-26] MEDS: Metoprolol Tartrate 25 MG TABLET PO (22:23)
[2021-08-26] MEDS: cefTRIAXone sodium 1 GM in 0.9 % Sodium Chloride 50 ML IV (22:24)
[2021-08-26 23:00] VITALS: BP 160/72; PULSE 78; RESP 20; TEMP 36.9; O2SAT 96
[2021-08-27] MEDS: 0.9 % Sodium Chloride Flush 3 ML SYRINGE IVFLUSH ×4 (00:43→23:46)
--- NOTE | 2021-08-27 03:17 | PC.NURSE ---
notified of 8 beat run of vtach
[2021-08-27 03:58] VITALS: BP 170/76; PULSE 80; RESP 19; TEMP 36.7; O2SAT 97
[2021-08-27 04:32] LABS: Anion Gap 17 (12-20); Blood Urea Nitrogen 19 mg/dL (9-16); Calcium 8.7 mg/dL (8.4-10.2); Carbon Dioxide 22 mmol/L (22-29); Chloride 103 mmol/L (96-108); Creatinine Clr Calc Pharmacy 93.1; Estimated Glomerular Filt Rate > 60; Glucose Random 212 mg/dL (60-115); Magnesium 2.2 mg/dL (1.6-2.6); Potassium 3.8 mmol/L (3.3-5.1); Sodium 138 mmol/L (135-145)
--- NOTE | 2021-08-27 07:06 | PC.NURSE ---
barrier cream applied to bottom a when pt cleant at 0630
[2021-08-27 07:13] LABS: Glucose, Whole Blood 169 mg/dL (60-115)
[2021-08-27 07:41] VITALS: BP 173/79; PULSE 76; RESP 19; TEMP 36.4; O2SAT 96
[2021-08-27] MEDS: Insulin Lispro 100 UNIT/ML 3 ML VIAL SUBCUT ×4 (08:00→21:24)
[2021-08-27] MEDS: predniSONE 5 MG TABLET PO (08:03)
[2021-08-27] MEDS: amLODIPine Besylate 10 MG TABLET PO (08:03)
[2021-08-27] MEDS: Gabapentin 300 MG CAPSULE PO ×2 (08:03→21:24)
[2021-08-27] MEDS: Furosemide 40 MG TABLET PO (08:03)
[2021-08-27] MEDS: azaTHIOprine 50 MG TABLET PO ×3 (08:03→21:24)
[2021-08-27] MEDS: mycophenolate mofetiL 250 MG CAPSULE 500 MG PO ×2 (08:04→21:24)
[2021-08-27] MEDS: Metoprolol Tartrate 25 MG TABLET PO ×2 (08:04→21:24)
[2021-08-27] MEDS: Valsartan 80 MG TABLET PO (08:04)
[2021-08-27] MEDS: Loperamide HCl 2 MG CAPSULE PO ×2 (08:04→21:24)
[2021-08-27] MEDS: predniSONE 20 MG TABLET PO (08:04)
[2021-08-27] MEDS: Triamcinolone Acet 0.1 % Cream 15 GM TUBE 1 APPL TOPICAL ×2 (08:05→21:26)
--- NOTE | 2021-08-27 10:51 | W.PM.IDCN ---
History of Present Illness Data of Consult Service Date: 08/26/21 Requesting physician: Jose Gómez Primary Care Provider: Justino Lara MD [facility] Reason for consult: bilateral leg redness He presents with bilateral leg redness and swelling and weeping. He feels tired as well. He has had Prednisone. He has myasthenia gravis and takes medication. Review of Systems Review of Systems: Yes all other systems are reviewed and are negative PMFSH Past Medical History Medical History Diabetes mellitus, type 2 Erythema of lower extremity Hypercholesteremia Hypertension Myasthenia gravis Myocardial infarction TBI (traumatic brain injury) Family History Family history: reviewed and not pertinent Social History Social History Household Members: Spouse Housing: House Do you presently have visiting nurse or other home services: Yes Unable to assess alcohol history related to: Unknown Alcohol intake: never Patient Tobacco Use Status: Never used Tobacco service: No Current occupational status: retired [employer] Allergies Allergy/AdvReac Type Severity Reaction Status Date / Time No Known Allergies Allergy Verified 09/02/21 14:18 [No Known Allergies*] Active Medications: Current Medications Acetaminophen (Acetaminophen 325 Mg Tablet) 650 mg PO Q6H PRN PRN Reason: Pain, Mild (Pain Scale 1-3) Acetaminophen (Acetaminophen 325 Mg Tablet) 650 mg PO DAILY@1230 [facility] Stop: 08/30/21 12:31 Last Admin: 08/26/21 12:54 Dose: 650 mg Documented by: Amlodipine Besylate (Amlodipine Besylate 10 Mg Tablet) 10 mg PO DAILY [facility]; Protocol Last Admin: 08/27/21 08:03 Dose: 10 mg Documented by: Azathioprine (Azathioprine 50 Mg Tablet) 50 mg PO TID [facility] Last Admin: 08/27/21 08:03 Dose: 50 mg Documented by: Dextrose (Dextrose 50 % 25 Gm/50 Ml Syringe) 25 gm IVPUSH Q15M PRN; Protocol PRN Reason: per Hypoglycemia Standing Ord. Diphenhydramine HCl (Diphenhydramine Hcl 50 Mg/Ml Vial) 25 mg IVPUSH DAILY@1230 [facility] Stop: 08/30/21 12:31 Last Admin: 08/26/21 12:54 Dose: 25 mg Documented by: Doxycycline Hyclate (Doxycycline Hyclate 100 Mg Tablet) 100 mg PO Q12H [facility] Enoxaparin Sodium (Enoxaparin Sodium 40 Mg/0.4 Ml Syringe) 40 mg SUBCUT Q24H [facility] Last Admin: 08/26/21 22:22 Dose: 40 mg Documented by: Furosemide (Furosemide 40 Mg Tablet) 40 mg PO DAILY [facility]; Protocol Last Admin: 08/27/21 08:03 Dose: 40 mg Documented by: Gabapentin (Gabapentin 300 Mg Capsule) 300 mg PO BID [facility] Last Admin: 08/27/21 08:03 Dose: 300 mg Documented by: Glucose (Glucose Gel 15 Gm Gel..Gram.) 15 gm PO Q15M PRN; Protocol PRN Reason: per Hypoglycemia Standing Ord. Immune Globulin (Gammagard 10%) 300 mls @ 42 mls/hr IV DAILY@1415 [facility] Stop: 08/30/21 21:24 Last Infusion: 08/26/21 22:38 Dose: Infused Documented by: Immune Globulin (Gammagard 10%) 50 mls @ 42 mls/hr IV DAILY@1300 [facility] Stop: 08/30/21 14:12 Last Infusion: 08/26/21 14:39 Dose: Infused Documented by: Insulin Human Lispro (Insulin Lispro 100 Unit/Ml 3 Ml Vial) 0.1 - 10 unit SUBCUT QIDACHS [facility]; Protocol Last Admin: 08/27/21 08:00 Dose: 2 unit Documented by: Loperamide HCl (Loperamide Hcl 2 Mg Capsule) 2 mg PO BID [facility] Last Admin: 08/27/21 08:04 Dose: 2 mg Documented by: Melatonin (Melatonin 3 Mg Tablet) 6 mg PO BEDTIME PRN PRN Reason: Insomnia Metoprolol Tartrate (Metoprolol Tartrate 25 Mg Tablet) 25 mg PO BID [facility]; Protocol Last Admin: 08/27/21 08:04 Dose: 25 mg Documented by: Mycophenolate Mofetil (Mycophenolate Mofetil 250 Mg Capsule) 500 mg PO BID [facility] Last Admin: 08/27/21 08:04 Dose: 500 mg Documented by: Prednisone (Prednisone 20 Mg Tablet) 20 mg PO DAILY [facility] Last Admin: 08/27/21 08:04 Dose: 20 mg Documented by: Prednisone (Prednisone 5 Mg Tablet) 5 mg PO DAILY [facility] Last Admin: 08/27/21 08:03 Dose: 5 mg Documented by: Pyridostigmine [place] (Pyridostigmine [place] 60 Mg Tablet) 60 mg PO QID [facility] Last Admin: 08/27/21 08:04 Dose: 60 mg Documented by: Quetiapine Fumarate (Quetiapine Fumarate 25 Mg Tablet) 25 mg PO DAILY@1300 [facility] Last Admin: 08/26/21 14:24 Dose: 25 mg Documented by: Senna (Sennosides 8.6 Mg Tablet) 17.2 mg PO BEDTIME PRN PRN Reason: Constipation Sodium Chloride (0.9 % Sodium Chloride Flush 3 Ml Syringe) 3 ml IVFLUSH QSHIFT [facility] Last Admin: 08/27/21 08:02 Dose: 3 ml Documented by: Triamcinolone Acetonide (Triamcinolone Acet 0.1 % Cream 15 Gm Tube) 1 appl TOPICAL BID [facility]; Protocol Last Admin: 08/27/21 08:05 Dose: 1 appl Documented by: Valsartan (Valsartan 80 Mg Tablet) 80 mg PO DAILY [facility]; Protocol Last Admin: 08/27/21 08:04 Dose: 80 mg Documented by: Home Medications Medication Instructions Recorded Confirmed Last Taken Type amlodipine 10 mg tablet 10 mg PO DAILY 06/02/20 08/24/21 08/24/21 History azathioprine 50 mg tablet 50 mg PO TID 06/02/20 08/24/21 08/24/21 History pyridostigmine bromide 60 mg tablet 1 tab PO QID 06/02/20 08/24/21 08/24/21 History quetiapine 25 mg tablet 1 tab PO DAILY@1300 06/02/20 08/24/21 08/24/21 History valsartan 80 mg tablet 1 tab PO DAILY 06/02/20 08/24/21 08/24/21 History blood sugar diagnostic (FreeStyle #10 ea 03/05/21 05/02/21 Unknown History Lite Strips) lancets 28 gauge (FreeStyle #100 ea 03/05/21 05/02/21 Unknown History Lancets) furosemide 40 mg tablet 1 tab PO DAILY 05/02/21 08/24/21 08/24/21 History clotrimazole 1 % topical cream 1 appl TOPICAL BID 08/24/21 08/24/21 08/24/21 History gabapentin 300 mg capsule 1 cap PO BID 08/24/21 08/24/21 08/24/21 History loperamide 2 mg capsule 1 tab PO BID 08/24/21 08/24/21 08/24/21 History mycophenolate mofetil 500 mg tablet 1 tab PO BID 08/24/21 08/24/21 08/24/21 History cephalexin 750 mg capsule 750 mg PO QID 09/02/21 Unknown History metformin 500 mg tablet 1,000 mg PO BID 09/02/21 Unknown History Physical Exam Vital Signs: Vital Signs: Last Vital Signs Temp 97.6 F 08/27/21 07:41 Pulse 76 08/27/21 07:41 Resp 19 08/27/21 07:41 BP 173/79 H 08/27/21 07:41 Pulse Ox 96 08/27/21 07:41 BMI result Body Mass Index 36.0 Const: General: cooperative HENMT: Head: Yes normal to inspection Mouth: Normal oral and palatal mucosa present Eyes: General: appearance normal, both eyes and all related structures Resp: Effort & Inspection: normal respiratory effort Cardio: Rate: regular rate Rhythm: regular rhythm GI: Palpation (GI): Soft to palpation and nontender Extrem: Other: plus three edema right and more erythema,left plus two and some weeping bilaterally venous stasis haze no tinea pedis Results Labs CBC & Chem 7: 08/26/21 05:33 08/28/21 06:01 Labs: BMP 08/27/21 08/27/21 04:04 04:04 Sodium Cancelled 138 Potassium Cancelled 3.8 Chloride Cancelled 103 Carbon Dioxide Cancelled 22 BUN Cancelled 19 H Creatinine Cancelled 0.84 Calcium Cancelled 8.7 Microbiology Microbiology Results: Microbiology 08/24/21 16:59 Blood - Venous Blood Culture - Preliminary No growth after 48 hours. 08/24/21 16:47 Blood - Venous Blood Culture - Preliminary No growth after 48 hours. Assessment and Plan (1) Erythema of lower extremity: Status: Acute This is likely due to venous stasis since is bilateral and swelling from Prednisone causing erythema Cellulitis is not usually bilateral and he has no toxicity with no fever or leukocytosis or much pain Plan Stop IV antibiotics. Switch to po Doxycycline for possible minimal right erythema around toes for 10 days Continue treatment to reduce swelling.
[2021-08-27 11:03] LABS: Glucose, Whole Blood 340 mg/dL (60-115)
[2021-08-27] MEDS: Acetaminophen 325 MG TABLET 650 MG PO (11:46)
[2021-08-27] MEDS: diphenhydrAMINE HCL 50 MG/ML VIAL 25 MG IVPUSH (11:48)
[2021-08-27 11:57] VITALS: BP 157/71; PULSE 86; RESP 19; TEMP 36.7; O2SAT 97
[2021-08-27] MEDS: QUEtiapine Fumarate 25 MG TABLET PO (13:42)
--- NOTE | 2021-08-27 13:46 | HO.PM.IMPN ---
Subjective Subjective Date of Service: 08/27/21 Interval History: Myasthenia gravis flare Review of Systems Weakness and eyes closing similar to yesterday Denies any chest pain or shortness of breath or abdominal pain or fever or chills Physical Exam Vital Signs: Vital Signs: Last Vital Signs Temp 98.1 F 08/27/21 11:57 Pulse 86 08/27/21 11:57 Resp 19 08/27/21 11:57 BP 157/71 H 08/27/21 11:57 Pulse Ox 97 08/27/21 11:57 BMI result Body Mass Index 36.0 Appearance: Alert.? Oriented X3.? not in distress.? cvs: [id number], [id number] , no murmur res: clear to auscultation ,no rhonchii or wheezing abd: no rebound or guarding ,nt, bs present. ext pulses present , no cyanosis ,Gait well balanced well coordinated. neuro: awake and alert with sometime normal and sometime structuring type of speech.? started normally then started to stutter.? Face was symmetrical.? mild bilateral ptosis.? moves all ext mild rash on lower legs improvin Objective Data Active Medications Acetaminophen (Acetaminophen 325 Mg Tablet) 650 mg PO Q6H PRN PRN Reason: Pain, Mild (Pain Scale 1-3) Acetaminophen (Acetaminophen 325 Mg Tablet) 650 mg PO DAILY@1230 [facility] Stop: 08/30/21 12:31 Last Admin: 08/27/21 11:46 Dose: 650 mg Documented by: SHERRY Amlodipine Besylate (Amlodipine Besylate 10 Mg Tablet) 10 mg PO DAILY [facility]; Protocol Last Admin: 08/27/21 08:03 Dose: 10 mg Documented by: SHERRY Azathioprine (Azathioprine 50 Mg Tablet) 50 mg PO TID [facility] Last Admin: 08/27/21 08:03 Dose: 50 mg Documented by: SHERRY Dextrose (Dextrose 50 % 25 Gm/50 Ml Syringe) 25 gm IVPUSH Q15M PRN; Protocol PRN Reason: per Hypoglycemia Standing Ord. Diphenhydramine HCl (Diphenhydramine Hcl 50 Mg/Ml Vial) 25 mg IVPUSH DAILY@1230 [facility] Stop: 08/30/21 12:31 Last Admin: 08/27/21 11:48 Dose: 25 mg Documented by: SHERRY Doxycycline Hyclate (Doxycycline Hyclate 100 Mg Tablet) 100 mg PO Q12H [facility] Last Admin: 08/27/21 12:58 Dose: 100 mg Documented by: SHERRY Enoxaparin Sodium (Enoxaparin Sodium 40 Mg/0.4 Ml Syringe) 40 mg SUBCUT Q24H [facility] Last Admin: 08/26/21 22:22 Dose: 40 mg Documented by: JEFF Furosemide (Furosemide 40 Mg Tablet) 40 mg PO DAILY [facility]; Protocol Last Admin: 08/27/21 08:03 Dose: 40 mg Documented by: SHERRY Gabapentin (Gabapentin 300 Mg Capsule) 300 mg PO BID [facility] Last Admin: 08/27/21 08:03 Dose: 300 mg Documented by: SHERRY Glucose (Glucose Gel 15 Gm Gel..Gram.) 15 gm PO Q15M PRN; Protocol PRN Reason: per Hypoglycemia Standing Ord. Immune Globulin (Gammagard 10%) 300 mls @ 42 mls/hr IV DAILY@1415 [facility] Stop: 08/30/21 21:24 Last Infusion: 08/26/21 22:38 Dose: 0 mls/hr Documented by: JEFF Immune Globulin (Gammagard 10%) 50 mls @ 42 mls/hr IV DAILY@1300 [facility] Stop: 08/30/21 14:12 Last Infusion: 08/26/21 14:39 Dose: 0 mls/hr Documented by: FIDENCIO Insulin Human Lispro (Insulin Lispro 100 Unit/Ml 3 Ml Vial) 0.1 - 10 unit SUBCUT QIDACHS [facility]; Protocol Last Admin: 08/27/21 11:45 Dose: 10 unit Documented by: SHERRY Loperamide HCl (Loperamide Hcl 2 Mg Capsule) 2 mg PO BID [facility] Last Admin: 08/27/21 08:04 Dose: 2 mg Documented by: SHERRY Melatonin (Melatonin 3 Mg Tablet) 6 mg PO BEDTIME PRN PRN Reason: Insomnia Metoprolol Tartrate (Metoprolol Tartrate 25 Mg Tablet) 25 mg PO BID [facility]; Protocol Last Admin: 08/27/21 08:04 Dose: 25 mg Documented by: SHERRY Mycophenolate Mofetil (Mycophenolate Mofetil 250 Mg Capsule) 500 mg PO BID [facility] Last Admin: 08/27/21 08:04 Dose: 500 mg Documented by: SHERRY Prednisone (Prednisone 20 Mg Tablet) 20 mg PO DAILY [facility] Last Admin: 08/27/21 08:04 Dose: 20 mg Documented by: SHERRY Prednisone (Prednisone 5 Mg Tablet) 5 mg PO DAILY [facility] Last Admin: 08/27/21 08:03 Dose: 5 mg Documented by: SHERRY Pyridostigmine [place] (Pyridostigmine [place] 60 Mg Tablet) 60 mg PO QID [facility] Last Admin: 08/27/21 13:42 Dose: 60 mg Documented by: SHERRY Quetiapine Fumarate (Quetiapine Fumarate 25 Mg Tablet) 25 mg PO DAILY@1300 [facility] Last Admin: 08/27/21 13:42 Dose: 25 mg Documented by: SHERRY Senna (Sennosides 8.6 Mg Tablet) 17.2 mg PO BEDTIME PRN PRN Reason: Constipation Sodium Chloride (0.9 % Sodium Chloride Flush 3 Ml Syringe) 3 ml IVFLUSH QSHIFT [facility] Last Admin: 08/27/21 08:02 Dose: 3 ml Documented by: SHERRY Triamcinolone Acetonide (Triamcinolone Acet 0.1 % Cream 15 Gm Tube) 1 appl TOPICAL BID [facility]; Protocol Last Admin: 08/27/21 08:05 Dose: 1 appl Documented by: SHERRY Valsartan (Valsartan 80 Mg Tablet) 80 mg PO DAILY [facility]; Protocol Last Admin: 08/27/21 08:04 Dose: 80 mg Documented by: SHERRY Labs CBC & Chem 7: 08/26/21 05:33 08/27/21 04:04 Labs: Laboratory Results - last 24 hr 08/26/21 08/26/21 08/27/21 15:52 19:32 04:04 Anion Gap Cancelled Estim Creat Clear Calc Cancelled Estimated GFR Cancelled POC Glucose 345 H 244 H Random Glucose Cancelled Calcium Cancelled Magnesium 08/27/21 08/27/21 08/27/21 04:04 07:02 10:52 Anion Gap 17 Estim Creat Clear Calc 93.1 Estimated GFR > 60 POC Glucose 169 H 340 H Random Glucose 212 H Calcium 8.7 Magnesium 2.2 Microbiology Microbiology Results: Microbiology 08/24/21 16:59 Blood Culture - Preliminary Blood - Venous No growth after 48 hours. 08/24/21 16:47 Blood Culture - Preliminary Blood - Venous No growth after 48 hours. Assessment and Plan (1) Myasthenia gravis: Status: Acute (2) Hyperglycemia: Status: Acute Plan 70-year-old gentleman with past medical history significant for hypertension, diabetes, myasthenia gravis on prednisone 25 mg by mouth daily along with azathioprine and pyridostigmine? presented to [facility] due to few days history of bilateral lower extremity edema redness and droopy eyes patient is now being admitted due to bilateral lower extremity cellulitis, and concern for impending myasthenia crisis. 1.Myasthenia gravis No acute exacerbation, but concern for worsening symptoms due to acute infection, vital capacity 2.6, no respiratory distress. follow spirometry Continue home medications neuro : started on ivig for 2/5 day .continue mycophenolate, prednisone, pyridostigmine, azt. 2.Dm uncontrolled : fs from 130-290's prior hemoglobin A1c are greater than 8 suggestive of poor blood sugar control and also hyperglycemia related to prednisone Gap closed electrolytes normalized Diabetic diet continue insulin sliding scale adjusted and Lantus 3.Bilateral lower extremity cellulitis-? less likely Swelling and redness significantly improved, no evidence of CHF likely fluid overload with prednisone blood culture negative so far intially was on IV Rocephin, seen by iD -switched to po doxycycline1/10 days . 4htn: Blood pressure improving continue amlodipine 10 mg and valsartan 80 mg daily, added metoprolol follow blood pressure closely and adjust medication 5.Obesity. BMI 36.0 Recommend low-calorie diet likely contributing to hyperglycemia and hyperlipidemia. 6.Mild elevated LFTs no abdominal pain follow labs, continue statins 7.Mood disorder continue Seroquel DVT prophylaxis with heparin Quality Stroke Does the patient have a stroke diagnosis?: No VTE Prior VTE?: No VTE Risk Level:: Medical - moderate - high VTE Device Contraindication: Treatment Not Indicated VTE Drug Contraindication: N/A - Med Ordered
[2021-08-27 15:14] VITALS: BP 146/76; PULSE 90; RESP 18; TEMP 36.8; O2SAT 96
[2021-08-27] MEDS: Immun Glob G(IgG)/Gly/IGA Ov50 300 ML IV (15:14)
[2021-08-27 16:28] LABS: Glucose, Whole Blood 389 mg/dL (60-115)
--- NOTE | 2021-08-27 17:20 | PC.NURSE ---
Pt was given 14 units of Insulin Lispro per sliding scale policy. aware.
[2021-08-27] MEDS: glipiZIDE 5 MG TABLET 2.5 MG PO (17:42)
[2021-08-27 19:02] VITALS: BP 160/69; PULSE 77; RESP 18; TEMP 36.6; O2SAT 92
[2021-08-27 20:02] LABS: Glucose, Whole Blood 242 mg/dL (60-115)
[2021-08-27 23:14] VITALS: BP 183/86; PULSE 80; RESP 18; TEMP 36.1; O2SAT 95
[2021-08-27] MEDS: Enoxaparin Sodium 40 MG/0.4 ML SYRINGE SUBCUT (23:48)
[2021-08-28 04:00] VITALS: BP 189/86; PULSE 79; RESP 18; TEMP 36.3; O2SAT 98
[2021-08-28 06:41] LABS: Anion Gap 16 (12-20); Blood Urea Nitrogen 18 mg/dL (9-16); Carbon Dioxide 24 mmol/L (22-29); Chloride 104 mmol/L (96-108); Creatinine Clr Calc Pharmacy 98.9; Estimated Glomerular Filt Rate > 60; Glucose Random 100 mg/dL (60-115); Sodium 140 mmol/L (135-145)
[2021-08-28 07:08] VITALS: BP 180/88; PULSE 80; RESP 18; TEMP 36.3; O2SAT 96
[2021-08-28 07:18] LABS: Estimated Average Glucose 197 mg/dL; Hemoglobin A1c % 8.5 %
[2021-08-28 07:32] LABS: Glucose, Whole Blood 107 mg/dL (60-115)
[2021-08-28] MEDS: Valsartan 80 MG TABLET PO (10:04)
[2021-08-28] MEDS: 0.9 % Sodium Chloride Flush 3 ML SYRINGE IVFLUSH ×2 (10:04→21:12)
[2021-08-28] MEDS: predniSONE 20 MG TABLET PO (10:05)
[2021-08-28] MEDS: glipiZIDE 5 MG TABLET 2.5 MG PO ×2 (10:05→16:45)
[2021-08-28] MEDS: predniSONE 5 MG TABLET PO (10:06)
[2021-08-28] MEDS: amLODIPine Besylate 10 MG TABLET PO (10:06)
[2021-08-28] MEDS: mycophenolate mofetiL 250 MG CAPSULE 500 MG PO ×2 (10:06→21:10)
[2021-08-28] MEDS: Metoprolol Tartrate 50 MG TABLET PO ×2 (10:07→21:10)
[2021-08-28] MEDS: Furosemide 40 MG TABLET PO (10:08)
[2021-08-28] MEDS: Loperamide HCl 2 MG CAPSULE PO ×2 (10:08→21:10)
[2021-08-28] MEDS: Gabapentin 300 MG CAPSULE PO ×2 (10:09→21:09)
[2021-08-28] MEDS: azaTHIOprine 50 MG TABLET PO ×3 (10:09→21:09)
[2021-08-28] MEDS: Triamcinolone Acet 0.1 % Cream 15 GM TUBE 1 APPL TOPICAL ×2 (10:09→21:10)
[2021-08-28 10:54] VITALS: BP 170/77; PULSE 90; RESP 18; TEMP 36.7; O2SAT 97
[2021-08-28 11:26] LABS: Glucose, Whole Blood 172 mg/dL (60-115)
[2021-08-28] MEDS: diphenhydrAMINE HCL 50 MG/ML VIAL 25 MG IVPUSH (12:42)
[2021-08-28] MEDS: Acetaminophen 325 MG TABLET 650 MG PO (12:42)
[2021-08-28] MEDS: Insulin Lispro 100 UNIT/ML 3 ML VIAL SUBCUT ×3 (12:42→21:09)
[2021-08-28] MEDS: QUEtiapine Fumarate 25 MG TABLET PO (12:43)
--- NOTE | 2021-08-28 13:11 | HO.PM.IMPN ---
Subjective Subjective Date of Service: 08/28/21 Interval History: myastenia gravis flare Review of Systems Patient is saying that he can close eyes more comfortably now, denies any chest pain or shortness of breath or abdominal pain or fever or chills or new weakness or numbness. Physical Exam Vital Signs: Vital Signs: Last Vital Signs Temp 98.0 F 08/28/21 10:54 Pulse 90 08/28/21 10:54 Resp 18 08/28/21 10:54 BP 170/77 H 08/28/21 10:54 Pulse Ox 97 08/28/21 10:54 BMI result Body Mass Index 36.0 Appearance: Alert.? Oriented X3.? not in distress.? cvs: [id number], [id number] , no murmur res: clear to auscultation ,no rhonchii or wheezing abd: no rebound or guarding ,nt, bs present. ext pulses present , no cyanosis ,Gait well balanced well coordinated. neuro: awake and alert with sometime normal and sometime structuring type of speech.? started normally then started to stutter.? Face was symmetrical.? mild bilateral ptosis.? moves all ext mild rash on lower legs improvin Objective Data Active Medications Acetaminophen (Acetaminophen 325 Mg Tablet) 650 mg PO Q6H PRN PRN Reason: Pain, Mild (Pain Scale 1-3) Acetaminophen (Acetaminophen 325 Mg Tablet) 650 mg PO DAILY@1230 [facility] Stop: 08/30/21 12:31 Last Admin: 08/28/21 12:42 Dose: 650 mg Documented by: MICHELE Amlodipine Besylate (Amlodipine Besylate 10 Mg Tablet) 10 mg PO DAILY [facility]; Protocol Last Admin: 08/28/21 10:06 Dose: 10 mg Documented by: MICHELE Azathioprine (Azathioprine 50 Mg Tablet) 50 mg PO TID [facility] Last Admin: 08/28/21 10:09 Dose: 50 mg Documented by: MICHELE Dextrose (Dextrose 50 % 25 Gm/50 Ml Syringe) 25 gm IVPUSH Q15M PRN; Protocol PRN Reason: per Hypoglycemia Standing Ord. Diphenhydramine HCl (Diphenhydramine Hcl 50 Mg/Ml Vial) 25 mg IVPUSH DAILY@1230 [facility] Stop: 08/30/21 12:31 Last Admin: 08/28/21 12:42 Dose: 25 mg Documented by: MICHELE Doxycycline Hyclate (Doxycycline Hyclate 100 Mg Tablet) 100 mg PO Q12H [facility] Last Admin: 08/28/21 10:08 Dose: 100 mg Documented by: MICHELE Enoxaparin Sodium (Enoxaparin Sodium 40 Mg/0.4 Ml Syringe) 40 mg SUBCUT Q24H [facility] Last Admin: 08/27/21 23:48 Dose: 40 mg Documented by: JATINDER Furosemide (Furosemide 40 Mg Tablet) 40 mg PO DAILY [facility]; Protocol Last Admin: 08/28/21 10:08 Dose: 40 mg Documented by: MICHELE Gabapentin (Gabapentin 300 Mg Capsule) 300 mg PO BID [facility] Last Admin: 08/28/21 10:09 Dose: 300 mg Documented by: MICHELE Glipizide (Glipizide 5 Mg Tablet) 2.5 mg PO BIDWM [facility] Last Admin: 08/28/21 10:05 Dose: 2.5 mg Documented by: MICHELE Glucose (Glucose Gel 15 Gm Gel..Gram.) 15 gm PO Q15M PRN; Protocol PRN Reason: per Hypoglycemia Standing Ord. Immune Globulin (Gammagard 10%) 300 mls @ 42 mls/hr IV DAILY@1415 [facility] Stop: 08/30/21 21:24 Last Infusion: 08/27/21 21:27 Dose: 0 mls/hr Documented by: TERESITA Immune Globulin (Gammagard 10%) 50 mls @ 42 mls/hr IV DAILY@1300 [facility] Stop: 08/30/21 14:12 Last Admin: 08/28/21 12:52 Dose: 42 mls/hr Documented by: MICHELE Insulin Human Lispro (Insulin Lispro 100 Unit/Ml 3 Ml Vial) 0.1 - 10 unit SUBCUT QIDACHS [facility]; Protocol Last Admin: 08/28/21 12:42 Dose: 2 unit Documented by: MICHELE Loperamide HCl (Loperamide Hcl 2 Mg Capsule) 2 mg PO BID [facility] Last Admin: 08/28/21 10:08 Dose: 2 mg Documented by: MICHELE Melatonin (Melatonin 3 Mg Tablet) 6 mg PO BEDTIME PRN PRN Reason: Insomnia Metoprolol Tartrate (Metoprolol Tartrate 50 Mg Tablet) 50 mg PO BID [facility]; Protocol Last Admin: 08/28/21 10:07 Dose: 50 mg Documented by: MICHELE Mycophenolate Mofetil (Mycophenolate Mofetil 250 Mg Capsule) 500 mg PO BID [facility] Last Admin: 08/28/21 10:06 Dose: 500 mg Documented by: MICHELE Prednisone (Prednisone 20 Mg Tablet) 20 mg PO DAILY [facility] Last Admin: 08/28/21 10:05 Dose: 20 mg Documented by: MICHELE Prednisone (Prednisone 5 Mg Tablet) 5 mg PO DAILY [facility] Last Admin: 08/28/21 10:06 Dose: 5 mg Documented by: MICHELE Pyridostigmine [place] (Pyridostigmine [place] 60 Mg Tablet) 60 mg PO QID [facility] Last Admin: 08/28/21 12:43 Dose: 60 mg Documented by: MICHELE Quetiapine Fumarate (Quetiapine Fumarate 25 Mg Tablet) 25 mg PO DAILY@1300 [facility] Last Admin: 08/28/21 12:43 Dose: 25 mg Documented by: MICHELE Senna (Sennosides 8.6 Mg Tablet) 17.2 mg PO BEDTIME PRN PRN Reason: Constipation Sodium Chloride (0.9 % Sodium Chloride Flush 3 Ml Syringe) 3 ml IVFLUSH QSHIFT [facility] Last Admin: 08/28/21 10:04 Dose: 3 ml Documented by: MICHELE Triamcinolone Acetonide (Triamcinolone Acet 0.1 % Cream 15 Gm Tube) 1 appl TOPICAL BID [facility]; Protocol Last Admin: 08/28/21 10:09 Dose: 1 appl Documented by: MICHELE Valsartan (Valsartan 80 Mg Tablet) 80 mg PO DAILY [facility]; Protocol Last Admin: 08/28/21 10:04 Dose: 80 mg Documented by: MICHELE Labs CBC & Chem 7: 08/26/21 05:33 08/28/21 06:01 Labs: Laboratory Results - last 24 hr 08/27/21 08/27/21 08/28/21 16:18 19:58 06:01 Anion Gap 16 Estim Creat Clear Calc 98.9 Estimated GFR > 60 POC Glucose 389 H* 242 H Random Glucose 100 D Estimat Average Glucose Hemoglobin A1c % Calcium 9.0 08/28/21 08/28/21 08/28/21 06:01 07:11 10:53 Anion Gap Estim Creat Clear Calc Estimated GFR POC Glucose 107 172 H Random Glucose Estimat Average Glucose 197 Hemoglobin A1c % 8.5 Calcium Assessment and Plan (1) Erythema of lower extremity: Status: Acute (2) Myasthenia gravis: Status: Acute Plan 70-year-old gentleman with past medical history significant for hypertension, diabetes, myasthenia gravis on prednisone 25 mg by mouth daily along with azathioprine and pyridostigmine? presented to [facility] due to few days history of bilateral lower extremity edema redness and droopy eyes patient is now being admitted due to bilateral lower extremity cellulitis, and concern for impending myasthenia crisis. 1.Myasthenia gravis No acute exacerbation, but concern for worsening symptoms due to acute infection, vital capacity 2.6, no respiratory distress. follow spirometry Continue home medications neuro : started on ivig for 3/5 day .continue mycophenolate, prednisone, pyridostigmine, azt. 2.Dm : fs improving 100-170's prior hemoglobin A1c are greater than 8 suggestive of poor blood sugar control and also hyperglycemia related to prednisone Gap closed electrolytes normalized Diabetic diet continue insulin sliding scale adjusted? and Lantus 3.Bilateral lower extremity cellulitis-? less likely Swelling and redness significantly improved, no evidence of CHF likely fluid overload with prednisone blood culture negative so far intially was on IV Rocephin, seen by iD -switched to po doxycycline2/10 days . 4htn: Blood pressure improving continue amlodipine 10 mg and valsartan 80 mg daily, added metoprolol follow blood pressure closely and adjust medication 5.Obesity. BMI 36.0 Recommend low-calorie diet likely contributing to hyperglycemia and hyperlipidemia. 6.Mild elevated LFTs no abdominal pain follow labs, continue statins 7.Mood disorder continue Seroquel DVT prophylaxis with heparin Quality Stroke Does the patient have a stroke diagnosis?: No VTE Prior VTE?: No VTE Risk Level:: Medical - moderate - high VTE Device Contraindication: Treatment Not Indicated VTE Drug Contraindication: N/A - Med Ordered
[2021-08-28] MEDS: Immun Glob G(IgG)/Gly/IGA Ov50 300 ML IV (14:07)
[2021-08-28 15:47] VITALS: BP 153/72; PULSE 84; RESP 16; TEMP 36.1; O2SAT 96
[2021-08-28 16:24] LABS: Glucose, Whole Blood 305 mg/dL (60-115)
[2021-08-28 19:26] VITALS: BP 160/75; PULSE 74; RESP 14; TEMP 36.6; O2SAT 96
[2021-08-28 20:30] LABS: Glucose, Whole Blood 246 mg/dL (60-115)
[2021-08-28] MEDS: Enoxaparin Sodium 40 MG/0.4 ML SYRINGE SUBCUT (21:11)
[2021-08-28 23:14] VITALS: BP 149/68; PULSE 77; RESP 20; TEMP 36.4; O2SAT 96
[2021-08-29 04:00] VITALS: BP 168/79; PULSE 68; RESP 18; TEMP 36.2; O2SAT 94
[2021-08-29 07:06] VITALS: BP 161/70; PULSE 83; RESP 18; TEMP 36.7; O2SAT 98
[2021-08-29 07:43] LABS: Glucose, Whole Blood 137 mg/dL (60-115)
--- NOTE | 2021-08-29 08:09 | HO.PM.IMPN ---
Subjective Subjective Date of Service: 08/29/21 Interval History: MG flare Review of Systems seems improving Physical Exam Vital Signs: Vital Signs: Last Vital Signs Temp 98.1 F 08/29/21 07:06 Pulse 83 08/29/21 07:06 Resp 18 08/29/21 07:06 BP 161/70 H 08/29/21 07:06 Pulse Ox 98 08/29/21 07:06 BMI result Body Mass Index 36.0 Appearance: Alert.? Oriented X3.? not in distress.? cvs: [id number], [id number] , no murmur res: clear to auscultation ,no rhonchii or wheezing abd: no rebound or guarding ,nt, bs present. ext pulses present , no cyanosis ,Gait well balanced well coordinated. neuro: awake and alert with sometime normal and sometime structuring type of speech.? started normally then started to stutter.? Face was symmetrical.? mild bilateral ptosis.? moves all ext mild rash on lower legs improvin Objective Data Active Medications Acetaminophen (Acetaminophen 325 Mg Tablet) 650 mg PO Q6H PRN PRN Reason: Pain, Mild (Pain Scale 1-3) Acetaminophen (Acetaminophen 325 Mg Tablet) 650 mg PO DAILY@1230 [facility] Stop: 08/30/21 12:31 Last Admin: 08/28/21 12:42 Dose: 650 mg Documented by: MICHELE Amlodipine Besylate (Amlodipine Besylate 10 Mg Tablet) 10 mg PO DAILY [facility]; Protocol Last Admin: 08/28/21 10:06 Dose: 10 mg Documented by: MICHELE Azathioprine (Azathioprine 50 Mg Tablet) 50 mg PO TID [facility] Last Admin: 08/28/21 21:09 Dose: 50 mg Documented by: JESI Dextrose (Dextrose 50 % 25 Gm/50 Ml Syringe) 25 gm IVPUSH Q15M PRN; Protocol PRN Reason: per Hypoglycemia Standing Ord. Diphenhydramine HCl (Diphenhydramine Hcl 50 Mg/Ml Vial) 25 mg IVPUSH DAILY@1230 [facility] Stop: 08/30/21 12:31 Last Admin: 08/28/21 12:42 Dose: 25 mg Documented by: MICHELE Doxycycline Hyclate (Doxycycline Hyclate 100 Mg Tablet) 100 mg PO Q12H [facility] Last Admin: 02/24/22 21:11 Dose: 100 mg Documented by: JESI Enoxaparin Sodium (Enoxaparin Sodium 40 Mg/0.4 Ml Syringe) 40 mg SUBCUT Q24H [facility] Last Admin: 08/28/21 21:11 Dose: 40 mg Documented by: JESI Furosemide (Furosemide 40 Mg Tablet) 40 mg PO DAILY [facility]; Protocol Last Admin: 08/28/21 10:08 Dose: 40 mg Documented by: MICHELE Gabapentin (Gabapentin 300 Mg Capsule) 300 mg PO BID [facility] Last Admin: 08/28/21 21:09 Dose: 300 mg Documented by: JESI Glipizide (Glipizide 5 Mg Tablet) 5 mg PO BIDWM [facility] Glucose (Glucose Gel 15 Gm Gel..Gram.) 15 gm PO Q15M PRN; Protocol PRN Reason: per Hypoglycemia Standing Ord. Immune Globulin (Gammagard 10%) 300 mls @ 42 mls/hr IV DAILY@1415 [facility] Stop: 08/30/21 21:24 Last Infusion: 08/28/21 21:23 Dose: 0 mls/hr Documented by: JESI Immune Globulin (Gammagard 10%) 50 mls @ 42 mls/hr IV DAILY@1300 [facility] Stop: 08/30/21 14:12 Last Infusion: 08/28/21 14:14 Dose: 0 mls/hr Documented by: MICHELE Insulin Human Lispro (Insulin Lispro 100 Unit/Ml 3 Ml Vial) 0.1 - 10 unit SUBCUT QIDACHS [facility]; Protocol Last Admin: 08/29/21 07:59 Dose: Not Given Documented by: JANINE Non-Admin Reason: No Insulin Coverage Loperamide HCl (Loperamide Hcl 2 Mg Capsule) 2 mg PO BID [facility] Last Admin: 08/28/21 21:10 Dose: 2 mg Documented by: JESI Melatonin (Melatonin 3 Mg Tablet) 6 mg PO BEDTIME PRN PRN Reason: Insomnia Metoprolol Tartrate (Metoprolol Tartrate 50 Mg Tablet) 50 mg PO BID [facility]; Protocol Last Admin: 08/28/21 21:10 Dose: 50 mg Documented by: JESI Mycophenolate Mofetil (Mycophenolate Mofetil 250 Mg Capsule) 500 mg PO BID [facility] Last Admin: 08/28/21 21:10 Dose: 500 mg Documented by: JESI Prednisone (Prednisone 20 Mg Tablet) 20 mg PO DAILY [facility] Last Admin: 08/28/21 10:05 Dose: 20 mg Documented by: MICHELE Prednisone (Prednisone 5 Mg Tablet) 5 mg PO DAILY [facility] Last Admin: 08/28/21 10:06 Dose: 5 mg Documented by: MICHELE Pyridostigmine [place] (Pyridostigmine [place] 60 Mg Tablet) 60 mg PO QID [facility] Last Admin: 08/28/21 21:10 Dose: 60 mg Documented by: JESI Quetiapine Fumarate (Quetiapine Fumarate 25 Mg Tablet) 25 mg PO DAILY@1300 [facility] Last Admin: 08/28/21 12:43 Dose: 25 mg Documented by: MICHELE Senna (Sennosides 8.6 Mg Tablet) 17.2 mg PO BEDTIME PRN PRN Reason: Constipation Sodium Chloride (0.9 % Sodium Chloride Flush 3 Ml Syringe) 3 ml IVFLUSH QSHIFT [facility] Last Admin: 08/28/21 21:12 Dose: 3 ml Documented by: JESI Triamcinolone Acetonide (Triamcinolone Acet 0.1 % Cream 15 Gm Tube) 1 appl TOPICAL BID [facility]; Protocol Last Admin: 08/28/21 21:10 Dose: 1 appl Documented by: JESI Valsartan (Valsartan 80 Mg Tablet) 80 mg PO DAILY [facility]; Protocol Last Admin: 08/28/21 10:04 Dose: 80 mg Documented by: MICHELE Labs CBC & Chem 7: 08/26/21 05:33 08/28/21 06:01 Labs: Laboratory Results - last 24 hr 08/28/21 08/28/21 08/28/21 10:53 16:16 20:09 POC Glucose 172 H 305 H 246 H 08/29/21 07:06 POC Glucose 137 H Assessment and Plan (1) Erythema of lower extremity: Status: Acute (2) Myasthenia gravis: Status: Acute Plan 70-year-old gentleman with past medical history significant for hypertension, diabetes, myasthenia gravis on prednisone 25 mg by mouth daily along with azathioprine and pyridostigmine? presented to [facility] due to few days history of bilateral lower extremity edema redness and droopy eyes patient is now being admitted due to bilateral lower extremity cellulitis, and concern for impending myasthenia crisis. 1.Myasthenia gravis No acute exacerbation, but concern for worsening symptoms due to acute infection, vital capacity 2.6, no respiratory distress. follow spirometry Continue home medications neuro : started on ivig for 4/5 day .continue mycophenolate, prednisone, pyridostigmine, azt. 2.Dm? : fs improving 100-170's prior hemoglobin A1c are greater than 8 suggestive of poor blood sugar control and also hyperglycemia related to prednisone Gap closed electrolytes normalized Diabetic diet continue insulin sliding scale adjusted? and Lantus 3.Bilateral lower extremity cellulitis-? less likely Swelling and redness significantly improved, no evidence of CHF likely fluid overload with prednisone blood culture negative so far intially was on IV Rocephin, seen by iD -switched to po doxycycline3/10 days . 4htn: Blood pressure improving continue amlodipine 10 mg and valsartan 80 mg daily, added metoprolol follow blood pressure closely and adjust medication 5.Obesity. BMI 36.0 Recommend low-calorie diet likely contributing to hyperglycemia and hyperlipidemia. 6.Mild elevated LFTs no abdominal pain follow labs, continue statins 7.Mood disorder continue Seroquel DVT prophylaxis with heparin Quality Stroke Does the patient have a stroke diagnosis?: No VTE Prior VTE?: No VTE Risk Level:: Medical - moderate - high VTE Device Contraindication: Treatment Not Indicated VTE Drug Contraindication: N/A - Med Ordered
[2021-08-29] MEDS: azaTHIOprine 50 MG TABLET PO ×3 (08:45→22:45)
[2021-08-29] MEDS: 0.9 % Sodium Chloride Flush 3 ML SYRINGE IVFLUSH ×3 (08:45→22:46)
[2021-08-29] MEDS: glipiZIDE 5 MG TABLET PO ×2 (08:45→16:50)
[2021-08-29] MEDS: Triamcinolone Acet 0.1 % Cream 15 GM TUBE 1 APPL TOPICAL ×2 (08:45→22:50)
[2021-08-29] MEDS: mycophenolate mofetiL 250 MG CAPSULE 500 MG PO ×2 (08:46→22:46)
[2021-08-29] MEDS: amLODIPine Besylate 10 MG TABLET PO (08:46)
[2021-08-29] MEDS: Furosemide 40 MG TABLET PO (08:46)
[2021-08-29] MEDS: predniSONE 20 MG TABLET PO (08:46)
[2021-08-29] MEDS: predniSONE 5 MG TABLET PO (08:46)
[2021-08-29] MEDS: Metoprolol Tartrate 50 MG TABLET PO ×2 (08:46→22:46)
[2021-08-29] MEDS: Gabapentin 300 MG CAPSULE PO ×2 (08:46→22:45)
[2021-08-29] MEDS: Loperamide HCl 2 MG CAPSULE PO ×2 (08:46→22:46)
[2021-08-29] MEDS: Valsartan 80 MG TABLET PO (08:47)
[2021-08-29 10:56] VITALS: BP 128/69; PULSE 78; RESP 18; TEMP 36.3; O2SAT 96
[2021-08-29 11:29] LABS: Glucose, Whole Blood 226 mg/dL (60-115)
[2021-08-29] MEDS: Insulin Lispro 100 UNIT/ML 3 ML VIAL SUBCUT ×3 (12:01→22:45)
[2021-08-29] MEDS: QUEtiapine Fumarate 25 MG TABLET PO (13:23)
[2021-08-29] MEDS: Acetaminophen 325 MG TABLET 650 MG PO (13:23)
[2021-08-29] MEDS: diphenhydrAMINE HCL 50 MG/ML VIAL 25 MG IVPUSH (13:24)
[2021-08-29 15:11] VITALS: BP 157/63; PULSE 75; RESP 16; TEMP 36; O2SAT 95
[2021-08-29] MEDS: Immun Glob G(IgG)/Gly/IGA Ov50 300 ML IV (16:08)
[2021-08-29 16:11] LABS: Glucose, Whole Blood 324 mg/dL (60-115)
[2021-08-29 19:57] VITALS: BP 155/81; PULSE 80; RESP 20; TEMP 36.5; O2SAT 96
[2021-08-29 20:38] LABS: Glucose, Whole Blood 208 mg/dL (60-115)
[2021-08-29] MEDS: Enoxaparin Sodium 40 MG/0.4 ML SYRINGE SUBCUT (22:44)
[2021-08-29 23:24] VITALS: BP 177/81; PULSE 87; RESP 18; TEMP 37.1; O2SAT 98
[2021-08-30 04:00] VITALS: BP 162/72; PULSE 77; RESP 18; TEMP 36.4; O2SAT 97
[2021-08-30 07:17] VITALS: BP 157/70; PULSE 75; RESP 20; TEMP 36.2; O2SAT 98
[2021-08-30 07:54] LABS: Glucose, Whole Blood 87 mg/dL (60-115)
[2021-08-30] MEDS: 0.9 % Sodium Chloride Flush 3 ML SYRINGE IVFLUSH ×2 (08:11→16:30)
[2021-08-30] MEDS: predniSONE 5 MG TABLET PO (08:11)
[2021-08-30] MEDS: Furosemide 40 MG TABLET PO (08:12)
[2021-08-30] MEDS: predniSONE 20 MG TABLET PO (08:12)
[2021-08-30] MEDS: Gabapentin 300 MG CAPSULE PO (08:12)
[2021-08-30] MEDS: mycophenolate mofetiL 250 MG CAPSULE 500 MG PO (08:12)
[2021-08-30] MEDS: Valsartan 80 MG TABLET PO (08:12)
[2021-08-30] MEDS: glipiZIDE 5 MG TABLET PO ×2 (08:13→17:50)
[2021-08-30] MEDS: Metoprolol Tartrate 50 MG TABLET PO (08:13)
[2021-08-30] MEDS: azaTHIOprine 50 MG TABLET PO ×2 (08:13→15:21)
[2021-08-30] MEDS: amLODIPine Besylate 10 MG TABLET PO (08:13)
[2021-08-30] MEDS: Loperamide HCl 2 MG CAPSULE PO (08:13)
[2021-08-30] MEDS: Triamcinolone Acet 0.1 % Cream 15 GM TUBE 1 APPL TOPICAL (08:14)
[2021-08-30 11:25] LABS: Glucose, Whole Blood 273 mg/dL (60-115)
[2021-08-30 11:30] VITALS: BP 168/74; PULSE 78; RESP 20; TEMP 36.4; O2SAT 97
[2021-08-30] MEDS: Insulin Lispro 100 UNIT/ML 3 ML VIAL SUBCUT ×2 (11:43→16:30)
[2021-08-30] MEDS: Immun Glob G(IgG)/Gly/IGA Ov50 300 ML IV (12:01)
--- NOTE | 2021-08-30 12:46 | P.DS_ITS ---
DS: Providers Provider Date of Service: 08/30/21 Date of admission: 08/24/21 22:50 Primary care physician: Justino Lara MD Consults: 08/24/21 22:55 Consult to Neurology Routine Consulting Provider: [facility] Reason for consultation: hx Myasthenia; reports Eyelids drooping; gen weakness 08/25/21 14:40 Consult to Infectious Diseases Routine Consulting Provider: Diana Montanez Reason for consultation: ? bilat cellulitis Has provider been notified: No DS: Diagnosis Discharge Diagnosis (1) Erythema of lower extremity: Status: Acute (2) Myasthenia gravis: Status: Acute DS: Summary Hospital Course Hospital Course: 70-year-old gentleman with past medical history significant for hypertension, diabetes, myasthenia gravis on prednisone 25 mg by mouth daily along with azathioprine and pyridostigmine? presented to [facility] due to few days history of bilateral lower extremity edema redness and droopy eyes patient is now being admitted due to bilateral lower extremity cellulitis, and concern for impending myasthenia crisis. Hospital course: Patient was admitted for myasthenia gravis flare: Patient was already taking pyridostigmin , mycophenolate, prednisone: Seen by Neurology recommended to continue pyridostigmin , mycophenolate, prednisone 10 mg b.i.d., in addition patient was given IVIGx5 days: Patient has weakness and eye symptoms seems improved patient is asymptomatic now. Lower leg cellulitis: Seen by infectious disease recommended p.o. doxycycline. Please complete the course. Diabetes: Hyperglycemia-probably related to steroid use: Neurology recommended prednisone 10 mg b.i.d. currently which is adjusted from 25 mg /day previously patient taking. Hba1c levels 8.5 In addition glipizide adjusted to 7.5 mg b.i.d. Fingersticks are mostly between 170-220 range. Patient was advised to strongly follow diabetic diet and glipizide. Monitor fingersticks closely before meals at home and if fingersticks stays about 200 persistently, may need to adjust glipizide, also follow-up with PCP for further management. Hyperglycemia expected to improved since prednisone adjusted as well as glipizid e uptitrated. Will hold off metformin for now due to lactic acidosis. Further use of metformin outpatient as per PCP. Consider outpatient endocrinology evaluation if needed as per pcp. Time Spent with Patient Time attestation: Total time spent providing and/or coordinating discharge services: Discharge coordination time: Greater than 30 minutes Quality: Stroke Does the patient have a stroke diagnosis?: No Physical Exam Vital Signs: Vital Signs: Last Vital Signs Temp 97.6 F 08/30/21 11:30 Pulse 78 08/30/21 11:30 Resp 20 08/30/21 11:30 BP 168/74 H 08/30/21 11:30 Pulse Ox 97 08/30/21 11:30 BMI result Body Mass Index 36.0 Appearance: Alert.? Oriented X3.? not in distress.? cvs: rrr, [id number] , no murmur res: clear to auscultation ,no rhonchii or wheezing abd: no rebound or guarding ,nt, bs present. ext pulses present , no cyanosis ,Gait well balanced well coordinated. neuro: awake and alert with sometime normal and sometime structuring type of speech.? started normally then started to stutter.? Face was symmetrical.? mild bilateral ptosis.? moves all ext mild rash on lower legs improvin DS: Data Data Completed and Pending Labs on day of discharge: Laboratory Results - last 24 hr 08/29/21 08/29/21 08/30/21 15:56 20:32 07:19 POC Glucose 324 H 208 H 87 08/30/21 11:19 POC Glucose 273 H Additional Comments Additional comments: ?MR/MR head/brain wo con IMPRESSION: No acute intracranial process. Mild chronic white matter microangiopathy. US/US venous duplex LE BI IMPRESSION: No DVT demonstrated in the bilateral lower extremity. Discharge Plan Discharge Patient Disposition: Home Health Service Discharge Diagnosis: cellulitis, MG flare Referrals: [facility] [Outside] - 1 Week Justino Lara MD [Primary Care Provider] - 1 Week Discharge Medications: New doxycycline hyclate 100 mg Tablet 100 mg PO Q12H Qty: 10 0RF Continued rosuvastatin 20 mg tablet 20 mg PO DAILY 90 Days Qty: 90 0RF quetiapine 25 mg tablet 1 tab PO DAILY@1300 0RF valsartan 80 mg tablet 1 tab PO DAILY 0RF azathioprine 50 mg tablet 50 mg PO TID 0RF amlodipine 10 mg tablet 10 mg PO DAILY 0RF pyridostigmine bromide 60 mg tablet 1 tab PO QID 0RF furosemide 40 mg tablet 1 tab PO DAILY 0RF triamcinolone acetonide 0.1 % cream 1 appl topical BID Qty: 30 0RF Rx Instructions: apply to legs loperamide 2 mg capsule 1 tab PO BID 0RF mycophenolate mofetil 500 mg tablet 1 tab PO BID 0RF gabapentin 300 mg capsule 1 cap PO BID 0RF clotrimazole 1 % cream 1 appl topical BID 0RF (DME) lancets [FreeStyle Lancets] 28 gauge misc See Rx Instructions ea Not Applicable DAILY Qty: 100 0RF Rx Instructions: As directed (DME) FreeStyle Lite Strips Strip See Rx Instructions ea Not Applicable DAILY Qty: 10 0RF Rx Instructions: As directed Changed prednisone 10 mg tablet 1 tab PO BIDWMEAL Qty: 0 0RF glipizide 5 mg tablet 7.5 mg PO BID Qty: 60 0RF Discontinued metformin 500 mg tablet 2 tab PO BID 0RF No Action metformin 500 mg tablet 1,000 mg PO BID 0RF cephalexin 750 mg capsule 750 mg PO QID 0RF Discharge Orders: Discharge Order (Routine); Ordered 08/30/21 Ordered By: Jose Gómez Diet: advance to usual diet Activity on Discharge: As tolerated Stand Alone Forms: Patient Portal Discharge page Care Plan Goals: Patient was admitted for myasthenia gravis flare: Patient was already taking pyridostigmin , mycophenolate, prednisone: Seen by Neurology recommended to continue pyridostigmin , mycophenolate, prednisone 10 mg b.i.d., in addition patient was given IVIGx5 days: Patient has weakness and eye symptoms seems improved patient is asymptomatic now. Lower leg cellulitis: Seen by infectious disease recommended p.o. doxycycline. Please complete the course. Diabetes: Hyperglycemia-probably related to steroid use: Neurology recommended prednisone 10 mg b.i.d. currently which is adjusted from 25 mg /day previously patient taking. Hba1c levels 8.5 In addition glipizide adjusted to 7.5 mg b.i.d. Fingersticks are mostly between 170-220 range. Patient was advised to strongly follow diabetic diet and glipizide. Monitor fingersticks closely at home and if fingersticks stays about 200 persistently, may need to adjust glipizide, also follow-up with PCP for further management. Hyperglycemia expected to improved since prednisone adjusted as well as glipizide uptitrated. Will hold off metformin for now due to lactic acidosis. Further use of metformin outpatient as per PCP. Consider outpatient endocrinology evaluation if needed as per pcp. Health Concerns: As above. Plan of Treatment: As above. Assessment: As above. Discharge Date/Time: 08/30/21 18:05
--- NOTE | 2021-08-30 12:50 | MHC.CM.PN ---
Patient has been medically cleared for dc to home today with services. A referral has been made to Deborah GRANADOS, who is aware of today's dc. IMM addressed with Patient at bedside and original has been given to him and a copy has been placed on the chart. Patient is aware of and in agreement with the dc plan. Patient's will provide transportation to home.
[2021-08-30] MEDS: QUEtiapine Fumarate 25 MG TABLET PO (13:32)
--- NOTE | 2021-08-30 14:02 | P.F2F_ITS ---
Service Date Service Date: 08/30/21 Encounter Date of encounter: 08/30/21 Encounter: Myastenia gravis flare , dm with fluactuating fs Reasons for Services Signs and symptoms assessed: eye symptoms , weakness Reason for [facility]: neurological assessment, diabetic teaching, medication management, medication treatment and teach disease management MD Overseeing Care: Justino Lara Homebound: Leaving the home is medically contraindicated at this time without the asist of a device and/or another person due th the listed conditions above and below. Reason homebound: weakness related to hospital stay Homebound supporting statement: Patient multiple medical comorbidities including myasthenia gravis, diabetes with fluctuating fingersticks, also generalized weak post hospital stay, need help to go to appointments. Certification: Based on the above findings, I certify that this patient is confined to the home and needs intermittent [facility] care, physical therapy and/or speech therapy, or continues to need occupational therapy. The patient is under my care, and I have initiated the establishment of the plan of care. The patient will be followed by a physician who will periodically review the plan of care.
[2021-08-30 15:07] VITALS: BP 146/67; PULSE 78; RESP 20; TEMP 36.8; O2SAT 95
[2021-08-30 16:07] LABS: Glucose, Whole Blood 282 mg/dL (60-115)
== END 2021-08-30 18:05 | disposition home health service (06) | DRG 193 ==
LOC: HO.ED 22:53 → HO.EDOVER 22:59 → HO.IMC 08-25 14:49
PROVIDERS: Internal Medicine; Nurse Practitioner Acute Care; Nurse Practitioner Family; Admitting Provider Hospitalist; Emergency Provider Internal Medicine; PCP Internal Medicine; Visit Provider Internal Medicine
DX: J18.9 Pneumonia, unspecified organism (principal); G70.01 Myasthenia gravis with (acute) exacerbation; E87.2 Acidosis; I87.323 Chronic venous hypertension (idiopathic) with inflammation of bilateral lower extremity; E66.9 Obesity, unspecified; E11.65 Type 2 diabetes mellitus with hyperglycemia; F39 Unspecified mood [affective] disorder; E87.5 Hyperkalemia; I25.10 Atherosclerotic heart disease of native coronary artery without angina pectoris; Z68.36 Body mass index [BMI] 36.0-36.9, adult; Z20.822 Contact with and (suspected) exposure to COVID-19; Z87.820 Personal history of traumatic brain injury; Z79.84 Long term (current) use of oral hypoglycemic drugs; Z79.899 Other long term (current) drug therapy
CPT/HCPCS: 36415; 70551; 71045; 80048; 80076; 81003; 82947; 83036; 83605; 83690; 83735; 83880; 84145; 84484; 85025; 85027; 85610; 85730; 87040; 87635; 93005; 93970; 96365; 96375; 99285; 99291; J0690; J0696; J1200; J1569; J1650; J1940

== ENCOUNTER → 2021-09-02 13:57 | Outpatient (BNVA) | payer MEDICARE, MEDICAID, SELFPAY | PROVIDERS: PCP Internal Medicine; Visit Provider Urology | DX: R31.29 Other microscopic hematuria (principal) | CPT/HCPCS: 99212 ==

== ENCOUNTER 2021-09-08 06:26 | Outpatient (REF) | payer MEDICARE, MEDICAID, SELFPAY ==
[2021-09-08 11:31] LABS: MANUAL DIFF FLAG NO
[2021-09-08 11:38] LABS: Basophils Percent Auto 0.3 % (0-2); Eosinophils Percent Auto 0.4 % (0-4); Hematocrit 40.1 % (42.0-52.0); Hemoglobin 12.6 g/dl (14.0-18.0); Imm Gran Abs Auto 0.05 X10*3/uL (0.00-0.03); Imm Gran Pct Auto 0.6 % (0.0-0.4); Lymphocytes Absolute Auto 1.3 X10*3/uL (1.2-4.9); Mean Corpuscular HGB Conc 31.4 g/dl (31.0-36.0); Mean Corpuscular Hemoglobin 26.4 pg (27.0-33.0); Mean Corpuscular Volume 83.9 fL (80.0-98.0); Mean Platelet Volume 10.2 fL (9.4-12.4); Monocytes Absolute Auto 0.5 X10*3/uL (0.1-1.2); Monocytes Percent Auto 5.9 % (2-11); NRBC Pct Auto 0.3 /100WBC (0.0-0.2); Neutrophils Absolute Auto 5.9 x10*3/uL (2.0-8.3); Neutrophils Percent Auto 75.8 % (45-73); Platelet Count 194 X10*3/uL (160-400); Red Blood Count 4.78 X10*6/uL (4.60-5.80); Red Cell Distribution Width 19.6 % (11.0-16.0); White Blood Count 7.8 X10*3/uL (4.8-10.8)
[2021-09-08 11:47] LABS: Alanine Aminotransferase 33 U/L (0-40); Albumin Level 3.3 g/dL (3.5-5.0); Alkaline Phosphatase 32 U/L (39-117); Anion Gap 14 (12-20); Aspartate Amino Transferase 34 U/L (5-37); Bilirubin Total 0.6 mg/dL (0.0-1.0); Blood Urea Nitrogen 18 mg/dL (9-16); Calcium 9.3 mg/dL (8.4-10.2); Carbon Dioxide 26 mmol/L (22-29); Chloride 103 mmol/L (96-108); Cholesterol 116 mg/dL; Estimated Glomerular Filt Rate > 60; Glucose Fasting 101 mg/dL (60-99); HDL Cholesterol 50 mg/dL; LDL Cholesterol Calculated 34 mg/dl; Potassium 4.3 mmol/L (3.3-5.1); Sodium 139 mmol/L (135-145); Total Protein 7.1 g/dL (6.5-8.0); Triglycerides 160 mg/dL
[2021-09-08 12:15] LABS: Estimated Average Glucose 186 mg/dL; Hemoglobin A1c % 8.1 %; PSA,Total (Free>4and<10) 0.52 ng/mL (0.00-4.00)
[2021-09-08 12:20] LABS: Microalbum/Creatinine Ratio Ur 42.5 ug/mg cr
[2021-09-08 12:21] LABS: Appearance Urine CLOUDY; Color Urine YELLOW; Glucose Urine UA NEG (NEG); Leukocyte Esterase Urine NEG (NEG); Nitrite Urine NEG (NEG); Specific Gravity - Urine >= 1.030 (1.005-1.025); Urine Blood TRACE (NEG); Urine Ketones NEG (NEG); Urine Protein 1+ MG/DL (NEG-TRACE)
[2021-09-08 12:54] LABS: Amorphous Sediment Urine 3+ /LPF; Calcium Oxalate Crystals Urine 2+ /LPF; Mucus Urine 1+ /LPF; RBC Urine 0 /HPF (0); WBC Urine 0-2 /HPF (0-4)
== END 2021-09-08 06:27 | disposition home or self-care (01) ==
LOC: HO.HMGCLDS 06:26
PROVIDERS: Visit Provider Internal Medicine
DX: E11.9 Type 2 diabetes mellitus without complications (principal); E78.00 Pure hypercholesterolemia, unspecified; I11.0 Hypertensive heart disease with heart failure; I50.22 Chronic systolic (congestive) heart failure; G70.00 Myasthenia gravis without (acute) exacerbation; Z12.5 Encounter for screening for malignant neoplasm of prostate
CPT/HCPCS: 36415; 80053; 80061; 81001; 81003; 82043; 83036; 84153; 85025

== ENCOUNTER → 2021-09-30 06:50 | Outpatient (REF) | payer MEDICARE, MEDICAID, SELFPAY ==
--- NOTE | 2021-09-30 | HM_ITS ---
Conclusion: 1. Patient was monitored for total period of 5 days and 4 hours 2. Baseline rhythm is normal sinus with average heart of 90 beats per minute 3. No significant pauses or bradycardia noted 4. Very frequent short burst of SVT, longest at 13 beats and fastest at 180 beats per minute 5. Total of 5598 PVCs accounting for 0.83% account for occasional PVCs 6. Total of 5221 PACs accounting for 0.77% of total burden account for occasional PACs 7. No patient reported events MTDD
== END ==
LOC: HO.CARD 06:50
PROVIDERS: PCP Internal Medicine; Visit Provider Internal Medicine
DX: I48.0 Paroxysmal atrial fibrillation (principal)
CPT/HCPCS: 93242

== ENCOUNTER 2021-11-29 13:42 | Inpatient (IN) | payer MEDICARE, MEDICAID, SELFPAY ==
--- NOTE | 2021-11-29 | ECG_ITS ---
Test Reason : WEAKNESS Blood Pressure : / mmHG Vent. Rate : 119 BPM Atrial Rate : 119 BPM P-R Int : 128 ms QRS Dur : 084 ms QT Int : 330 ms P-R-T Axes : 039 -28 039 degrees QTc Int : 464 ms Sinus tachycardia with occasional Premature ventricular complexes Otherwise normal ECG When compared with ECG of 25-AUG-2021 14:50, Premature ventricular complexes Present Referred By: Generic ED Physician Electronically Signed By:Vijay Cullen
--- NOTE | ~2021-11-29 | CT_ITS ---
EXAMINATION: CT ANGIOGRAM OF THE CHEST WITH AND WITHOUT CONTRAST (CT PULMONARY ANGIOGRAM FOR PE) CLINICAL INFORMATION: Reason for Exam Chest heaviness, shortness of breath, COVID positi COMPARISON: 10/10/2019 TECHNIQUE: Prior to contrast administration, noncontrast localization images were obtained. Subsequently, multidetector volumetric imaging was performed from the thoracic inlet to below the diaphragms following the administration of 71 mL Omnipaque 350 intravenous contrast. No contrast reaction reported Sagittal, coronal, and MIP oblique sagittal reformatted images were obtained on the CT workstation, uploaded to PACS, and reviewed. This CT examination was performed using dose optimization techniques as appropriate, variously including the following: *Automated exposure control *Adjustment of mA and/or kV according to patient size (this includes techniques or standardized protocols for targeted exams where dose is matched to indication/reason for exam; i.e. extremities or head) *Use of iterative reconstruction technique Total exam dose-length product 551 mGy-cm FINDINGS: QUALITY OF STUDY/CONTRAST BOLUS: Satisfactory. PULMONARY ARTERIES: No central or segmental pulmonary emboli. THORACIC AORTA: No aneurysm or dissection. Scattered atherosclerotic calcifications are present. Focal polypoid plaque noted along the anterior aspect of the distal abdominal aorta. LUNG: There is moderate upper lobe predominant emphysema. Multifocal regions of groundglass opacity are present, greatest peripherally and at the lung bases, in keeping with history of Covid pneumonia. PLEURA: No pleural effusion or pneumothorax. MEDIASTINUM: The visualized thyroid gland is unremarkable. There are subcentimeter mediastinal lymph nodes within the range of normal variation. Cardiac size is within normal limits; no pericardial effusion. Coronary artery calcifications are present. No evidence of septal bowing or right heart strain. CHEST WALL/AXILLA: No axillary or internal mammary lymphadenopathy. OSSEOUS STRUCTURES: Degenerative changes are noted in the spine. UPPER ABDOMEN: Unremarkable. No reflux of contrast into the hepatic veins to suggest elevated right heart pressures. CT/CT angio chest PE protocol IMPRESSION: 1. No pulmonary embolus identified. 2. Multifocal groundglass opacities, in keeping with history of Covid pneumonia. 3. Upper lobe predominant emphysema. VTE: negative
--- NOTE | ~2021-11-29 | US_ITS ---
EXAMINATION: US ABDOMEN LIMITED CLINICAL INFORMATION: Transaminitis. Covid infection. COMPARISON: Abdomen CT from 10/08/2019 TECHNIQUE: Real-time imaging of the right upper quadrant abdominal viscera. FINDINGS: PANCREAS: The pancreas is obscured by bowel gas. LIVER: Liver is diffusely hyperechoic from steatosis. Otherwise, unremarkable. GALLBLADDER: Gallbladder is physiologically distended and contains calcified stones. No gallbladder wall thickening or pericholecystic fluid. No evidence of sludge or polyps. COMMON BILE DUCT: The CBD is obscured by bowel gas. No dilated ducts are seen. RIGHT KIDNEY: Normal. No hydronephrosis. No renal calculi or focal parenchymal lesions. The kidney measures 12.3 cm in maximum dimension. FREE FLUID: None. US/US abdomen limited IMPRESSION: * No acute imaging findings in the visualized right upper quadrant. * Diffuse hepatic steatosis. * Cholelithiasis without evidence of cholecystitis.
--- NOTE | ~2021-11-29 | XR_ITS ---
EXAMINATION: XR CHEST CLINICAL INFORMATION: Cough, Covid positive. COMPARISON: Chest radiograph dated from 08/24/2021. TECHNIQUE: AP view of the chest was obtained. FINDINGS: Stable prominence of the cardiomediastinal silhouette. Worsening pulmonary aeration with new patchy airspace opacities which are more apparent in the retrocardiac region and right mid lung. There is a small left pleural effusion. No pneumothorax. No acute osseous abnormalities. XR/XR chest 1V IMPRESSION: Multiple airspace opacities and small left pleural effusion concerning for an atypical pneumonia.
[2021-11-29 13:53] VITALS: BP 155/62; PULSE 118; RESP 20; TEMP 36.9; O2SAT 94; BMI 39.1
[2021-11-29 14:14] LABS: MANUAL DIFF FLAG NO
[2021-11-29 14:16] LABS: Basophils Percent Auto 0.1 % (0-2); Eosinophils Percent Auto 0.1 % (0-4); Hematocrit 41.9 % (42.0-52.0); Hemoglobin 13.3 g/dl (14.0-18.0); Imm Gran Abs Auto 0.07 X10*3/uL (0.00-0.03); Lymphocytes Absolute Auto 0.4 X10*3/uL (1.2-4.9); Lymphocytes Percent Auto 5.8 % (20-40); Mean Corpuscular HGB Conc 31.7 g/dl (31.0-36.0); Mean Corpuscular Hemoglobin 26.9 pg (27.0-33.0); Mean Corpuscular Volume 84.6 fL (80.0-98.0); Mean Platelet Volume 8.9 fL (9.4-12.4); Monocytes Absolute Auto 0.3 X10*3/uL (0.1-1.2); Monocytes Percent Auto 4.5 % (2-11); NRBC Pct Auto 0.3 /100WBC (0.0-0.2); Neutrophils Absolute Auto 6.5 x10*3/uL (2.0-8.3); Neutrophils Percent Auto 88.5 % (45-73); Platelet Count 178 X10*3/uL (160-400); Red Blood Count 4.95 X10*6/uL (4.60-5.80); Red Cell Distribution Width 18.6 % (11.0-16.0); White Blood Count 7.3 X10*3/uL (4.8-10.8)
[2021-11-29 14:31] LABS: Alanine Aminotransferase 50 U/L (0-40); Albumin Level 3.6 g/dL (3.5-5.0); Alkaline Phosphatase 30 U/L (39-117); Anion Gap 19 (12-20); Aspartate Amino Transferase 63 U/L (5-37); Bilirubin Total 0.9 mg/dL (0.0-1.0); Blood Urea Nitrogen 13 mg/dL (9-16); Calcium 8.5 mg/dL (8.4-10.2); Carbon Dioxide 24 mmol/L (22-29); Chloride 98 mmol/L (96-108); Creatinine Clr Calc Pharmacy 90.9; Estimated Glomerular Filt Rate > 60; Glucose Random 176 mg/dL (60-115); Potassium 3.7 mmol/L (3.3-5.1); Sodium 137 mmol/L (135-145); Total Protein 6.4 g/dL (6.5-8.0)
[2021-11-29 14:37] LABS: Troponin-I High Sensitivity 32.5 ng/L (<3.5-35.0)
[2021-11-29 20:34] VITALS: BP 155/60; PULSE 88; RESP 16; TEMP 36.8; O2SAT 92
[2021-11-29] MEDS: ondansetron HCL 4 MG/2 ML VIAL IVPUSH (21:22)
[2021-11-29] MEDS: 0.9 % Sodium Chloride 1,000 ML 999 ML IV (21:22)
[2021-11-29 21:44] LABS: Influenza A Negative (Negative); Influenza B2 Negative (Negative)
[2021-11-29 21:45] LABS: COVID-19 Test Positive (Negative); IDNOW Serial# 55D5AD1C
--- NOTE | 2021-11-29 21:45 | ED_ITS ---
HPI - Nausea/Vomiting/Diarrhea General Chief complaint: Nausea/Vomiting/Diarrhea Stated complaint: COVID + Weakness Vomiting Time Seen by Provider: 11/29/21 20:27 Source: patient and family () Mode of arrival: ambulatory Limitations: no limitations History of Present Illness HPI Narrative: 71-year-old male who presents emergency department for evaluation of nausea, vomiting, weakness x1 day. The patient states that his son along was feeling ill on 11/26/2021 and tested every 1 at the house for COVID-19. The patient's COVID-19 test was positive (4 days prior). Patient states he was feeling well until today when he developed nausea, vomiting and weakness. The patient states that any time he tries to eat food he vomits. He states that he has been able to drink fluids. He states that he is feeling very weak and lethargic. He has an occasional cough which is dry and nonproductive. The patient does have myasthenia gravis and is on immunosuppressants (azathioprine). He states because of his myasthenia gravis he always has heaviness in his chest as well as shortness of breath but he believes that these symptoms have gotten worse today. He denied fever, chills, rhinorrhea, sore throat, abdominal pain, myalgias or arthralgias. The patient has chronic diarrhea and takes loperamide. The patient states that he did received 2 Pfizer COVID-19 vaccinations but he never received a 3rd or 4th booster shot. Medication list was obtained from the patient's daughter: Azathioprine, prednisone, amlodipine, valsartan, rosuvatatin, metformin, gabapentin, glipizide, mycophenolate, loperamide, Seroquel, clotrimazole MD elicited complaint: nausea and vomiting Related Data Home Medications Medication Instructions Recorded Confirmed amlodipine 10 mg tablet 10 mg PO DAILY 06/02/20 08/24/21 azathioprine 50 mg tablet 50 mg PO TID 06/02/20 08/24/21 pyridostigmine bromide 60 mg tablet 1 tab PO QID 06/02/20 08/24/21 quetiapine 25 mg tablet 1 tab PO DAILY@1300 06/02/20 08/24/21 valsartan 80 mg tablet 1 tab PO DAILY 06/02/20 08/24/21 blood sugar diagnostic (FreeStyle #10 ea 03/05/21 05/02/21 Lite Strips) lancets 28 gauge (FreeStyle #100 ea 03/05/21 05/02/21 Lancets) furosemide 40 mg tablet 1 tab PO DAILY 05/02/21 08/24/21 clotrimazole 1 % topical cream 1 appl TOPICAL BID 08/24/21 08/24/21 gabapentin 300 mg capsule 1 cap PO BID 08/24/21 08/24/21 loperamide 2 mg capsule 1 tab PO BID 08/24/21 08/24/21 mycophenolate mofetil 500 mg tablet 1 tab PO BID 08/24/21 08/24/21 cephalexin 750 mg capsule 750 mg PO QID 09/02/21 metformin 500 mg tablet 1,000 mg PO BID 09/02/21 Previous Rx's Medication Instructions Recorded triamcinolone acetonide 0.1 % 1 appl TOPICAL BID #30 g 05/04/21 topical cream doxycycline hyclate 100 mg tablet 100 mg PO Q12H #10 tab 08/30/21 glipizide 5 mg tablet 7.5 mg PO BID #60 tab 08/30/21 prednisone 10 mg tablet 1 tab PO BIDWMEAL #0 tab 08/30/21 rosuvastatin 20 mg tablet 20 mg PO DAILY 90 Days #90 tab 10/17/21 Allergies Allergy/AdvReac Type Severity Reaction Status Date / Time No Known Allergies Allergy Verified 09/02/21 14:18 [No Known Allergies*] Review of Systems Review of Systems: Yes all other systems are reviewed and are negative [facility] Past Medical History [facility] Narrative: Social history: The patient lives with his . He denies tobacco use. He states that he rarely drinks alcohol. He denies drug use. Medical History Diabetes mellitus, type 2 Erythema of lower extremity Hypercholesteremia Hypertension Myasthenia gravis Myocardial infarction Obesity TBI (traumatic brain injury) Social History Social History Household Members: Spouse Housing: House Do you presently have visiting nurse or other home services: Yes Unable to assess alcohol history related to: Unknown Alcohol intake: never Patient Tobacco Use Status: Never used Tobacco Advance Directives: No Advance Directives Information Provided: No service: No Current occupational status: retired Physical Exam Vital Signs: Vital Signs: Last Vital Signs Temp 98.4 F 11/29/21 22:34 Pulse 77 11/29/21 22:34 Resp 16 11/29/21 22:34 BP 130/78 11/29/21 22:34 Pulse Ox 92 11/29/21 20:34 BMI result Body Mass Index 39.1 Const: Other: Awake, alert, male, he is oriented to person and place, he has stuttering speech and difficulty with word finding and difficulty with his memory secondary to traumatic brain injury Orientation/consciousness: oriented to person and oriented to place HEENT: Head: Yes normal to inspection, Yes normocephalic and Yes atraumatic Ears: external ears normal General nose exam: Normal external nose present Face and sinus: Yes normal facial exam Mouth: Normal oral and palatal mucosa present Throat: Yes posterior oropharynx normal Eyes: General: appearance normal, both eyes and all related structures Pu pils: Equal, round and reactive pupils present Neck: Neck: Yes normal visual inspection, Yes no lymphadenopathy, Yes trachea midline and Yes supple Chest: Chest palpation & inspection: normal inspection of the chest and normal palpation of entire chest wall Resp: Effort & Inspection: normal respiratory effort and able to speak in complete sentences Auscultation: clear to auscultation bilaterally Cardio: Rate: regular rate Rhythm: regular rhythm Heart sounds: S1 normal heart sound present, S2 normal heart sound present and no murmurs GI: Inspection: Yes normal to inspection Palpation (GI): Soft to palpation, nontender and no guarding Auscultation: normal bowel sounds : General: Yes no CVA tenderness Back/Spine/Pelvis: Back: no CVA tenderness Skin: General skin exam: no rashes or lesions noted Neuro: General: oriented to person and oriented to place Cranial nerves: Yes CN's II-XII intact bilaterally and Yes Equal, round and reactive pupils present Cognition (Neuro): normal cognition Extrem: Other: Weakness of his lower extremities compared to his upper, patient does have pitting edema to his feet and ankles, Psych: Appearance: grossly normal Speech and movement: Normal speech and movement present Attitude: cooperative Course Course Course Narrative: 71-year-old male who presents emergency department for evaluation of nausea, vomiting, weakness and cough x1 day. The patient took a home COVID-19 test on 11/26/2021 and this was positive. Patient does have a history of myasthenia gravis and is on azathioprine (immunosuppression). Vital signs revealed an elevated blood pressure 155/62, pulse initially was elevated at 118 but did come down to 88 without treatment. Patient's O2 saturation ranged from 92-94% on r oom air. Patient's examination was otherwise unremarkable. Laboratory evaluation was ordered to include CBC, CMP, troponin, COVID-19 and influenza. Will also obtain a 12 EKG and one-view chest x-ray. Patient was ordered to get normal saline x1 L and Zofran 4 mg IV. 2156: Laboratory evaluation: CBC was unremarkable with a normal WBC of 7300. Comprehensive metabolic panel was unremarkable except for an elevated glucose of 176, COVID-19 was positive. High sensitivity troponin I was detectable but not elevated at 32.5. Influenza was negative. Chest x-ray revealed multiple airspace opacities with small left pleural effusion concerning for an atypical pneumonia. The patient's laboratory evaluation did reveal detectable but not elevated troponin. This be repeated. The patient's laboratory evaluation x-ray is otherwise consistent with COVID-19 pneumonia. The patient's O2 saturation has decreased to a 90%. Given his weakness, his vomiting , his inability to eatand his immunocompromised status due to bystander gravis and treatment with azathioprine I believe the patient should be hospitalized for further management. Paxlovid is contraindicated to medication interactions. The patient may benefit from remdesivir. I will discuss admission with the covering hospitalist. 2304: I did discuss the patient with the covering hospitalist, Dr. Hart the patient will be admitted for further management. After this discussion I did add a PT/INR, PTT and the patient will get a CT pulmonary angiogram PE protocol. MDM - Nausea/Vomiting/Diarrhea Lab Data Result diagrams: 11/29/21 14:09 11/29/21 14:09 Labs: Lab Results 11/29/21 11/29/21 11/29/21 Range/Units 14:09 14:09 14:09 WBC 7.3 (4.8-10.8) X10*3/uL RBC 4.95 (4.60-5.80) X10*6/uL Hgb 13.3 L (14.0-18.0) g/dl Hct 41.9 L (42.0-52.0) % MCV 84.6 (80.0-98.0) fL MCH 26.9 L (27.0-33.0) pg MCHC 31.7 (31.0-36.0) g/dl RDW 18.6 H (11.0-16.0) % Plt Count 178 (160-400) X10*3/uL MPV 8.9 L (9.4-12.4) fL Immature Gran % (Auto) 1.0 H (0.0-0.4) % Neut % (Auto) 88.5 H (45-73) % Lymph % (Auto) 5.8 L (20-40) % [place] % (Auto) 4.5 (2-11) % Eos % (Auto) 0.1 (0-4) % Baso % (Auto) 0.1 (0-2) % Lymph # (Auto) 0.4 L (1.2-4.9) X10*3/uL [place] # (Auto) 0.3 (0.1-1.2) X10*3/uL Eos # (Auto) 0.0 (0.0-0.4) X10*3/uL Baso # (Auto) 0.0 (0.0-0.2) X10*3/uL Abs Immat Gran (auto) 0.07 H (0.00-0.03) X10*3/uL Absolute Neuts (auto) 6.5 (2.0-8.3) x10*3/uL Absolute Nucleated RBC 0.020 H (0.0-0.012) X10*3/uL Nucleated RBC % (auto) 0.3 H (0.0-0.2) /100WBC Sodium 137 (135-145) mmol/L Potassium 3.7 (3.3-5.1) mmol/L Chloride 98 (96-108) mmol/L Carbon Dioxide 24 (22-29) mmol/L Anion Gap 19 (12-20) BUN 13 (9-16) mg/dL Creatinine 0.87 (0.5-1.4) mg/dL Estim Creat Clear Calc 90.9 Estimated GFR > 60 Random Glucose 176 H D (60-115) mg/dL Calcium 8.5 D (8.4-10.2) mg/dL Total Bilirubin 0.9 (0.0-1.0) mg/dL AST 63 H (5-37) U/L ALT 50 H (0-40) U/L Alkaline Phosphatase 30 L (39-117) U/L Troponin I High Sens 32.5 D (<3.5-35.0) ng/L Total Protein 6.4 L (6.5-8.0) g/dL Albumin 3.6 (3.5-5.0) g/dL COVID-19 (MANISHA) (Negative) COVID-19 Clin Com Influenza Type A (VANDANA) (Negative) Influenza Type B (VANDANA) (Negative) Influenza A & B Note 11/29/21 11/29/21 11/29/21 Range/Units 21:09 21:10 22:20 WBC (4.8-10.8) X10*3/uL RBC (4.60-5.80) X10*6/uL Hgb (14.0-18.0) g/dl Hct (42.0-52.0) % MCV (80.0-98.0) fL MCH (27.0-33.0) pg MCHC (31.0-36.0) g/dl RDW (11.0-16.0) % Plt Count (160-400) X10*3/uL MPV (9.4-12.4) fL Immature Gran % (Auto) (0.0-0.4) % Neut % (Auto) (45-73) % Lymph % (Auto) (20-40) % [place] % (Auto) (2-11) % Eos % (Auto) (0-4) % Baso % (Auto) (0-2) % Lymph # (Auto) (1.2-4.9) X10*3/uL [place] # (Auto) (0.1-1.2) X10*3/uL Eos # (Auto) (0.0-0.4) X10*3/uL Baso # (Auto) (0.0-0.2) X10*3/uL Abs Immat Gran (auto) (0.00-0.03) X10*3/uL Absolute Neuts (auto) (2.0-8.3) x10*3/uL Absolute Nucleated RBC (0.0-0.012) X10*3/uL Nucleated RBC % (auto) (0.0-0.2) /100WBC Sodium (135-145) mmol/L Potassium (3.3-5.1) mmol/L Chloride (96-108) mmol/L Carbon Dioxide (22-29) mmol/L Anion Gap (12-20) BUN (9-16) mg/dL Creatinine (0.5-1.4) mg/dL Estim Creat Clear Calc Estimated GFR Random Glucose (60-115) mg/dL Calcium (8.4-10.2) mg/dL Total Bilirubin (0.0-1.0) mg/dL AST (5-37) U/L ALT (0-40) U/L Alkaline Phosphatase (39-117) U/L Troponin I High Sens 21.9 (<3.5-35.0) ng/L Total Protein (6.5-8.0) g/dL Albumin (3.5-5.0) g/dL COVID-19 (MANISHA) Positive A (Negative) COVID-19 Clin Com See Note Influenza Type A (VANDANA) Negative (Negative) Influenza Type B (VANDANA) Negative (Negative) Influenza A & B Note See Note ECG Data Attestation: I personally reviewed and interpreted this ECG as follows: Interpretation: 1354: Sinus tachycardia with a rate of 119, normal CT interval, QRS duration and QTC duration, no ST segment elevation, no ST segment depression, occasional PVC, nonspecific T-wave abnormalities. Critical Care Time Critical Care Time Total Critical Care Time: 45 Attestation: Critical Care: The patient was critically ill with a high probability of imminent or life threatening deterioration. I spent greater than 30 minutes of discontinuous time evaluating the patient,delivering critical care at the bedside, discussing and evaluating pertinent data with consultants. Critical care time does not include time spent performing separately billable procedures or teaching. Total time spent performing critical care was 45 minutes. Discharge Plan Discharge Clinical Impression: Pneumonia due to COVID-19 virus, Myasthenia gravis, Hypoxic, Weakness Patient Disposition: Admitted As Inpatient
[2021-11-29 22:34] VITALS: BP 130/78; PULSE 77; RESP 16; TEMP 36.9
--- NOTE | 2021-11-29 22:45 | PM.IMHP ---
History of Present Illness Date of Service: 11/29/21 Chief Complaint: SOB 71-year-old male with a past medical history of hypertension, hyperlipidemia, diabetes, myasthenia gravis, chronic diarrhea presented to the hospital with a chief complaint of shortness of breath/generalized weakness. Patient reports that he was tested positive for COVID-19 on 11/26/2021. He has been having shortness of breath which has been gradually worsening. Complains of generalized weakness and poor intake. Mentions he has COVID-19 vaccinated. patient reports he has chronic diarrhea. Patient also mentions has chest heaviness but attributes to his mass on previous; it noticed mildly increased discomfort. Denies any chest pain per se. Denies any urinary symptoms. Review of all other systems is negative except mentioned above ER course: Per ER team patient relative coarse breath sounds; chest x-ray showed multiple opacities; concern for COVID-19 pneumonia. Patient was saturating 90% on room air. Placed on supplemental oxygen. Given improved of compromised state and gradually worsening symptoms decided to admit to the hospital for further management. [facility] Medical History Diabetes mellitus, type 2 Erythema of lower extremity Hypercholesteremia Hypertension Myasthenia gravis Myocardial infarction Obesity TBI (traumatic brain injury) Pertinent family history: reviewed Social History Household Members: Spouse Housing: House Do you presently have visiting nurse or other home services: Yes Unable to assess alcohol history related to: Unknown Alcohol intake: never Patient Tobacco Use Status: Never used Tobacco Advance Directives: No Advance Directives Information Provided: No service: No Current occupational status: retired Meds Allergies Allergy/AdvReac Type Severity Reaction Status Date / Time No Known Allergies Allergy Verified 09/02/21 14:18 [No Known Allergies*] Active Medications: Current Medications Acetaminophen (Acetaminophen 325 Mg Tablet) 650 mg PO Q6H PRN PRN Reason: Pain, Mild (Pain Scale 1-3) Dexamethasone Sodium Phosphate (Dexamethasone Sod Phosphate 4 Mg/Ml Vial) 6 mg IVPUSH DAILY [facility] Enoxaparin Sodium (Enoxaparin Sodium 40 Mg/0.4 Ml Syringe) 40 mg SUBCUT Q24H [facility] Ceftriaxone Sodium 1 gm/ (Sodium Chloride) 50 mls @ 100 mls/hr IV Q24H [facility] Azithromycin 500 mg/ Sodium (Chloride) 250 mls @ 125 mls/hr IV Q24H [facility] Melatonin (Melatonin 3 Mg Tablet) 6 mg PO BEDTIME PRN PRN Reason: Insomnia Morphine Sulfate (Morphine Sulfate 4 Mg/Ml Cartridge) 1 mg IVPUSH Q4H PRN; Protocol PRN Reason: Pain, SOB Ondansetron HCl (Ondansetron Hcl 4 Mg/2 Ml Vial) 4 mg IVPUSH Q8H PRN PRN Reason: Nausea and Vomiting Sodium Chloride (0.9 % Sodium Chloride Flush 3 Ml Syringe) 3 ml IVFLUSH QSHIFT [facility] Home Medications Medication Instructions Recorded Confirmed Last Taken Type amlodipine 10 mg tablet 10 mg PO DAILY 06/02/20 08/24/21 08/24/21 History azathioprine 50 mg tablet 50 mg PO TID 06/02/20 08/24/21 08/24/21 History pyridostigmine bromide 60 mg tablet 1 tab PO QID 06/02/20 08/24/21 08/24/21 History quetiapine 25 mg tablet 1 tab PO DAILY@1300 06/02/20 08/24/21 08/24/21 History valsartan 80 mg tablet 1 tab PO DAILY 06/02/20 08/24/21 08/24/21 History blood sugar diagnostic (FreeStyle #10 ea 03/05/21 05/02/21 Unknown History Lite Strips) lancets 28 gauge (FreeStyle #100 ea 03/05/21 05/02/21 Unknown History Lancets) furosemide 40 mg tablet 1 tab PO DAILY 05/02/21 08/24/21 08/24/21 History clotrimazole 1 % topical cream 1 appl TOPICAL BID 08/24/21 08/24/21 08/24/21 History gabapentin 300 mg capsule 1 cap PO BID 08/24/21 08/24/21 08/24/21 History loperamide 2 mg capsule 1 tab PO BID 08/24/21 08/24/21 08/24/21 History mycophenolate mofetil 500 mg tablet 1 tab PO BID 08/24/21 08/24/21 08/24/21 History cephalexin 750 mg capsule 750 mg PO QID 09/02/21 Unknown History metformin 500 mg tablet 1,000 mg PO BID 09/02/21 Unknown History Physical Exam Vital Signs and Narrative: Vital Signs: Last Vital Signs Temp 98.4 F 11/29/21 22:34 Pulse 77 11/29/21 22:34 Resp 16 11/29/21 22:34 BP 130/78 11/29/21 22:34 Pulse Ox 92 11/29/21 20:34 BMI result Body Mass Index 39.1 Gen: Appears be in no acute distress; on supplemental oxygen. Speaks in full Sentences HEENT: NCAT, Moist mucosa. Pulmonary: coarse breath sounds CVS: Normal S1-S2 Abdomen: BS+, Soft, Nontender Extremities: Warm well perfused Neuro: Alert and awake. Results Labs CBC and Chem 7: 11/29/21 14:09 11/29/21 14:09 Labs: Laboratory Results - last 24 hr 11/29/21 11/29/21 11/29/21 14:09 14:09 14:09 MCV 84.6 MCH 26.9 L MCHC 31.7 RDW 18.6 H Plt Count 178 MPV 8.9 L Immature Gran % (Auto) 1.0 H Neut % (Auto) 88.5 H Lymph % (Auto) 5.8 L [place] % (Auto) 4.5 Eos % (Auto) 0.1 Baso % (Auto) 0.1 Lymph # (Auto) 0.4 L [place] # (Auto) 0.3 Eos # (Auto) 0.0 Baso # (Auto) 0.0 Abs Immat Gran (auto) 0.07 H Absolute Neuts (auto) 6.5 Absolute Nucleated RBC 0.020 H Nucleated RBC % (auto) 0.3 H Anion Gap 19 Estim Creat Clear Calc 90.9 Estimated GFR > 60 Random Glucose 176 H D Calcium 8.5 D Total Bilirubin 0.9 AST 63 H ALT 50 H Alkaline Phosphatase 30 L Troponin I High Sens 32.5 D Total Protein 6.4 L Albumin 3.6 COVID-19 (MANISHA) COVID-19 Clin Com Influenza Type A (VANDANA) Influenza Type B (VANDANA) Influenza A & B Note 11/29/21 11/29/21 21:09 21:10 MCV MCH MCHC RDW Plt Count MPV Immature Gran % (Auto) Neut % (Auto) Lymph % (Auto) [place] % (Auto) Eos % (Auto) Baso % (Auto) Lymph # (Auto) [place] # (Auto) Eos # (Auto) Baso # (Auto) Abs Immat Gran (auto) Absolute Neuts (auto) Absolute Nucleated RBC Nucleated RBC % (auto) Anion Gap Estim Creat Clear Calc Estimated GFR Random Glucose Calcium Total Bilirubin AST ALT Alkaline Phosphatase Troponin I High Sens Total Protein Albumin COVID-19 (MANISHA) Positive A COVID-19 Clin Com See Note Influenza Type A (VANDANA) Negative Influenza Type B (VANDANA) Negative Influenza A & B Note See Note Imaging Radiologist's Impressions: Impressions Chest X-Ray 11/29/21 21:08 IMPRESSION: Multiple airspace opacities and small left pleural effusion concerning for an atypical pneumonia. Assessment and Plan (1) Pneumonia due to COVID-19 virus: Status: Acute (2) Myasthenia gravis: Status: Acute (3) Diabetes: Status: Acute Plan 71-year-old male with a past medical history of hypertension, hyperlipidemia, diabetes, myasthenia gravis, chronic diarrhea presented to the hospital with a chief complaint of shortness of breath/generalized weakness. Patient was COVID-19 tested positive on 11/26. Symptoms have been gradually worsening. COVID-19 pneumonia/ hypoxia: Patient initially tested positive for COVID-19 on 11/26/2021. Patient saturating 90% on room air. Placed on supplemental oxygen. Start with ceftriaxone, azithromycin, Decadron 6 mg daily. ID consult for further recommendations Patient is COVID-19 vaccinated - received 2 Pfizer vaccines. Did not get the booster shot. CT chest pending EKG nonischemic Troponin 32.5-repeat pending Mild transaminitis: The setting of COVID-19 infection. Trend liver enzymes History of hypertension: Blood pressure 1 normal side. Hold home amlodipine for now History of diabetes: Insulin sliding scale History of chronic diarrhea: Patient on loperamide History of myasthenia gravis: Patient on azathioprine, mycophenolate, pyridostigmine -> will continue. Hold prednisone for now. DVT prophylaxis: Lovenox Code status: Full code Quality Stroke Does the patient have a stroke diagnosis?: No VTE Prior VTE?: No VTE Risk Level:: Medical - moderate - high VTE Device Contraindication: Treatment Not Indicated VTE Drug Contraindication: N/A - Med Ordered
[2021-11-29 22:55] LABS: Troponin-I High Sensitivity 21.9 ng/L (<3.5-35.0)
[2021-11-29] MEDS: cefTRIAXone sodium 1 GM in 0.9 % Sodium Chloride 50 ML IV (23:24)
[2021-11-29] MEDS: Azithromycin 500 MG in 0.9 % Sodium Chloride 250 ML 125 MG IV (23:26)
[2021-11-29] MEDS: Enoxaparin Sodium 40 MG/0.4 ML SYRINGE SUBCUT (23:27)
[2021-11-29 23:46] VITALS: BP 147/52; PULSE 98; RESP 21; TEMP 36.3; O2SAT 91
[2021-11-29 23:54] LABS: INTERNATIONAL NORM RATIO 1.1 (0.9-1.1); Prothrombin Time 12.8 SEC (9.9-13.0)
[2021-11-29 23:56] LABS: D Dimer High Sensitivity 256 NG/ML
[2021-11-30] MEDS: iohexoL 350 MG/ML 100 ML INFUS..BTL 71 ML IV (00:42)
[2021-11-30 02:08] VITALS: BP 150/64; PULSE 100; RESP 17; TEMP 36.7; O2SAT 92
--- NOTE | 2021-11-30 03:17 | PC.NURSE ---
pt found out of bed trying to use the bathroom despite being instructed to use call pastor before getting up, pt assisted to bathroom with no safety events. pt also placed on 2L nasal cannula do to desat 88% during sleep.
[2021-11-30 03:27] VITALS: BP 150/64; PULSE 89; RESP 22; O2SAT 93
[2021-11-30 07:19] LABS: MANUAL DIFF FLAG NO
[2021-11-30 07:23] LABS: Eosinophils Percent Auto 0.2 % (0-4); Hematocrit 37.3 % (42.0-52.0); Hemoglobin 11.8 g/dl (14.0-18.0); Imm Gran Abs Auto 0.04 X10*3/uL (0.00-0.03); Imm Gran Pct Auto 0.7 % (0.0-0.4); Lymphocytes Absolute Auto 0.6 X10*3/uL (1.2-4.9); Lymphocytes Percent Auto 10.8 % (20-40); Mean Corpuscular HGB Conc 31.6 g/dl (31.0-36.0); Mean Corpuscular Hemoglobin 26.7 pg (27.0-33.0); Mean Corpuscular Volume 84.4 fL (80.0-98.0); Mean Platelet Volume 8.9 fL (9.4-12.4); Monocytes Absolute Auto 0.3 X10*3/uL (0.1-1.2); Monocytes Percent Auto 4.5 % (2-11); Neutrophils Absolute Auto 4.7 x10*3/uL (2.0-8.3); Neutrophils Percent Auto 83.8 % (45-73); Platelet Count 156 X10*3/uL (160-400); Red Blood Count 4.42 X10*6/uL (4.60-5.80); Red Cell Distribution Width 18.5 % (11.0-16.0); White Blood Count 5.6 X10*3/uL (4.8-10.8)
[2021-11-30 07:41] LABS: Anion Gap 14 (12-20); Blood Urea Nitrogen 11 mg/dL (9-16); Calcium 8.1 mg/dL (8.4-10.2); Carbon Dioxide 24 mmol/L (22-29); Chloride 105 mmol/L (96-108); Creatinine Clr Calc Pharmacy 116.3; Estimated Glomerular Filt Rate > 60; Glucose Random 134 mg/dL (60-115); Potassium 3.5 mmol/L (3.3-5.1); Sodium 139 mmol/L (135-145)
[2021-11-30 07:43] LABS: Alanine Aminotransferase 48 U/L (0-40); Albumin Level 3.2 g/dL (3.5-5.0); Alkaline Phosphatase 26 U/L (39-117); Aspartate Amino Transferase 66 U/L (5-37); Bilirubin Direct 0.2 mg/dL (0.0-0.5); Bilirubin Total 0.5 mg/dL (0.0-1.0); Total Protein 5.8 g/dL (6.5-8.0)
[2021-11-30] MEDS: dexAMETHasone sod phosphate 4 MG/ML VIAL 6 MG IVPUSH (08:31)
[2021-11-30] MEDS: 0.9 % Sodium Chloride Flush 3 ML SYRINGE IVFLUSH (08:45)
--- NOTE | 2021-11-30 10:04 | PHA.MEDREC ---
Pharmacy Consult ? Medication Reconciliation Pharmacy has reviewed the medication reconciliation completed by [place]. Prednisone enter incorrectly, patient takes 25 mg daily in stead of 10 mg BID. Glipized in 5 mg BID instead of 7.5 mg BID. Shirley Esposito, PharmD
[2021-11-30 11:27] VITALS: BP 171/72; PULSE 88; RESP 19; O2SAT 90
[2021-11-30 11:38] LABS: Glucose, Whole Blood 235 mg/dL (60-115)
[2021-11-30] MEDS: Insulin Lispro 100 UNIT/ML 3 ML VIAL SUBCUT ×4 (12:14→22:42)
[2021-11-30 16:39] VITALS: BP 156/73; PULSE 95; RESP 14; TEMP 36.9; O2SAT 93
[2021-11-30 16:51] LABS: Glucose, Whole Blood 317 mg/dL (60-115)
[2021-11-30 17:18] LABS: Glucose, Whole Blood 316 mg/dL (60-115)
[2021-11-30 17:18] LABS: Glucose, Whole Blood 134 mg/dL (60-115)
--- NOTE | 2021-11-30 18:36 | HO.PM.IMPN ---
Subjective Subjective Date of Service: 11/30/21 Interval History: Patient seen and examined at bedside. He reports that he is significantly better. Continues to be nauseous but not vomiting as much as prior to being admitted. He reports no chest pain, shortness of breath is improving. Minimal cough. No abdominal pain no diarrhea or constipation at this time. Review of Systems Review of Systems: Yes all other systems are reviewed and are negative Physical Exam Vital Signs: Vital Signs: Last Vital Signs Temp 98.4 F 11/30/21 16:39 Pulse 95 11/30/21 16:39 Resp 14 11/30/21 16:39 BP 156/73 H 11/30/21 16:39 Pulse Ox 93 11/30/21 16:39 BMI result Body Mass Index 39.1 Const: General: cooperative, comfortable and no acute distress Resp: Other: Bilateral crackles Cardio: Other: Normal rate and rhythm GI: Other: Soft, nontender, no rebound or guarding, normal bowel sounds Extrem: Other: No lower extremity edema Objective Data Active Medications Acetaminophen (Acetaminophen 325 Mg Tablet) 650 mg PO Q6H PRN PRN Reason: Pain, Mild (Pain Scale 1-3) Amlodipine Besylate (Amlodipine Besylate 10 Mg Tablet) 10 mg PO DAILY [facility]; Protocol Atorvastatin Calcium (Atorvastatin Calcium 40 Mg Tablet) 40 mg PO DAILY [facility] Azathioprine (Azathioprine 50 Mg Tablet) 50 mg PO TID [facility] Last Admin: 11/30/21 16:22 Dose: Not Given Documented by: VINCENT Non-Admin Reason: Med Not Available Clotrimazole (Clotrimazole 1 % Cream 15 Gm Tube) 1 appl TOPICAL BID [facility]; Protocol Dexamethasone Sodium Phosphate (Dexamethasone Sod Phosphate 4 Mg/Ml Vial) 6 mg IVPUSH DAILY [facility] Last Admin: 11/30/21 08:31 Dose: 6 mg Documented by: VNICENT Dextrose (Dextrose 50 % 25 Gm/50 Ml Syringe) 25 gm IVPUSH Q15M PRN; Protocol PRN Reason: per Hypoglycemia Standing Ord. Enoxaparin Sodium (Enoxaparin Sodium 40 Mg/0.4 Ml Syringe) 40 mg SUBCUT BEDTIME [facility] Last Admin: 11/29/21 23:27 Dose: 40 mg Documented by: AVERY Gabapentin (Gabapentin 300 Mg Capsule) 300 mg PO BID [facility] Glucose (Glucose Gel 15 Gm Gel..Gram.) 15 gm PO Q15M PRN; Protocol PRN Reason: per Hypoglycemia Standing Ord. Ceftriaxone Sodium 1 gm/ (Sodium Chloride) 50 mls @ 100 mls/hr IV BEDTIME [facility] Last Infusion: 11/30/21 00:32 Dose: 0 mls/hr Documented by: AVERY Azithromycin 500 mg/ Sodium (Chloride) 250 mls @ 125 mls/hr IV Q24H [facility] Insulin Human Lispro (Insulin Lispro 100 Unit/Ml 3 Ml Vial) 0 unit SUBCUT QIDACHS [facility]; Protocol Last Admin: 11/30/21 17:05 Dose: 8 unit Documented by: VINCENT Loperamide HCl (Loperamide Hcl 2 Mg Capsule) 2 mg PO BID [facility] Melatonin (Melatonin 3 Mg Tablet) 6 mg PO BEDTIME PRN PRN Reason: Insomnia Morphine Sulfate (Morphine Sulfate 4 Mg/Ml Cartridge) 1 mg IVPUSH Q4H PRN; Protocol PRN Reason: Pain, SOB Non-Formulary Medication (Mycophenolate Mofetil) 1 tab PO BID [facility] Ondansetron HCl (Ondansetron Hcl 4 Mg/2 Ml Vial) 4 mg IVPUSH Q8H PRN PRN Reason: Nausea and Vomiting Pharmacy Consult (Consult Rx Perform Med Rec) 1 each MISCELLANE ONCE PRN PRN Reason: Consult order Pyridostigmine [place] (Pyridostigmine [place] 60 Mg Tablet) 60 mg PO QID [facility] Last Admin: 11/30/21 18:22 Dose: Not Given Documented by: VINCENT Non-Admin Reason: Med Not Available Quetiapine Fumarate (Quetiapine Fumarate 25 Mg Tablet) 25 mg PO BEDTIME [facility] Sodium Chloride (0.9 % Sodium Chloride Flush 3 Ml Syringe) 3 ml IVFLUSH QSHIFT [facility] Last Admin: 11/30/21 16:21 Dose: Not Given Documented by: VINCENT Non-Admin Reason: Previously Administered Valsartan (Valsartan 80 Mg Tablet) 80 mg PO DAILY [facility]; Protocol Labs CBC & Chem 7: 11/30/21 07:13 11/30/21 07:13 Labs: Laboratory Results - last 24 hr 11/29/21 11/29/21 11/29/21 21:09 21:10 22:20 MCV MCH MCHC RDW Plt Count MPV Immature Gran % (Auto) Neut % (Auto) Lymph % (Auto) [place] % (Auto) Eos % (Auto) Baso % (Auto) Lymph # (Auto) [place] # (Auto) Eos # (Auto) Baso # (Auto) Abs Immat Gran (auto) Absolute Neuts (auto) Absolute Nucleated RBC Nucleated RBC % (auto) PT INR APTT D-Dimer High Sensitivty Anion Gap Estim Creat Clear Calc Estimated GFR POC Glucose Random Glucose Calcium Total Bilirubin Direct Bilirubin AST ALT Alkaline Phosphatase Troponin I High Sens 21.9 Total Protein Albumin COVID-19 (MANISHA) Positive A COVID-19 Clin Com See Note Influenza Type A (VANDANA) Negative Influenza Type B (VANDANA) Negative Influenza A & B Note See Note 11/29/21 11/30/21 11/30/21 23:43 07:13 07:13 MCV 84.4 MCH 26.7 L MCHC 31.6 RDW 18.5 H Plt Count 156 L MPV 8.9 L Immature Gran % (Auto) 0.7 H Neut % (Auto) 83.8 H Lymph % (Auto) 10.8 L [place] % (Auto) 4.5 Eos % (Auto) 0.2 Baso % (Auto) 0.0 Lymph # (Auto) 0.6 L [place] # (Auto) 0.3 Eos # (Auto) 0.0 Baso # (Auto) 0.0 Abs Immat Gran (auto) 0.04 H Absolute Neuts (auto) 4.7 Absolute Nucleated RBC 0.000 Nucleated RBC % (auto) 0.0 PT 12.8 INR 1.1 APTT 32.0 D-Dimer High Sensitivty 256 Anion Gap 14 Estim Creat Clear Calc 116.3 Estimated GFR > 60 POC Glucose Random Glucose 134 H Calcium 8.1 L Total Bilirubin Direct Bilirubin AST ALT Alkaline Phosphatase Troponin I High Sens Total Protein Albumin COVID-19 (MANISHA) COVID-19 Clin Com Influenza Type A (VANDANA) Influenza Type B (VANDANA) Influenza A & B Note 11/30/21 11/30/21 11/30/21 07:13 07:20 11:25 MCV MCH MCHC RDW Plt Count MPV Immature Gran % (Auto) Neut % (Auto) Lymph % (Auto) [place] % (Auto) Eos % (Auto) Baso % (Auto) Lymph # (Auto) [place] # (Auto) Eos # (Auto) Baso # (Auto) Abs Immat Gran (auto) Absolute Neuts (auto) Absolute Nucleated RBC Nucleated RBC % (auto) PT INR APTT D-Dimer High Sensitivty Anion Gap Estim Creat Clear Calc Estimated GFR POC Glucose 134 H 235 H Random Glucose Calcium Total Bilirubin 0.5 Direct Bilirubin 0.2 AST 66 H ALT 48 H Alkaline Phosphatase 26 L Troponin I High Sens Total Protein 5.8 L Albumin 3.2 L COVID-19 (MANISHA) COVID-19 Clin Com Influenza Type A (VANDANA) Influenza Type B (VANDANA) Influenza A & B Note 11/30/21 11/30/21 14:21 16:44 MCV MCH MCHC RDW Plt Count MPV Immature Gran % (Auto) Neut % (Auto) Lymph % (Auto) [place] % (Auto) Eos % (Auto) Baso % (Auto) Lymph # (Auto) [place] # (Auto) Eos # (Auto) Baso # (Auto) Abs Immat Gran (auto) Absolute Neuts (auto) Absolute Nucleated RBC Nucleated RBC % (auto) PT INR APTT D-Dimer High Sensitivty Anion Gap Estim Creat Clear Calc Estimated GFR POC Glucose 316 H 317 H Random Glucose Calcium Total Bilirubin Direct Bilirubin AST ALT Alkaline Phosphatase Troponin I High Sens Total Protein Albumin COVID-19 (MANISHA) COVID-19 Clin Com Influenza Type A (VANDANA) Influenza Type B (VANDANA) Influenza A & B Note Assessment and Plan (1) Pneumonia due to COVID-19 virus: Status: Acute Plan 71-year-old male with a past medical history of hypertension, hyperlipidemia, diabetes, myasthenia gravis, chronic diarrhea presented to the hospital with a chief complaint of shortness of breath/generalized weakness.? Patient was COVID-19 tested positive on 11/26.? Symptoms have been gradually worsening. # COVID-19 pneumonia/ hypoxia: - Patient initially tested positive for COVID-19 on 11/26/2021. - Patient saturating 90% on room air.? Placed on supplemental oxygen. - continue IV antibiotics, continue Decadron - ID consult for further recommendations - Patient is COVID-19 vaccinated - received 2 Pfizer vaccines.? Did not get the booster shot. # elevated troponin - likely secondary to hypoxia - no chest pain - EKG nonischemic - troponin 32 but trended down to 21 # Mild transaminitis:? The setting of COVID-19 infection.? Trend liver enzymes # History of hypertension:? - continue home medications # History of diabetes:? Insulin sliding scale # History of chronic diarrhea: Patient on loperamide # History of myasthenia gravis:? Patient on azathioprine, mycophenolate, pyridostigmine -> will continue.? Hold prednisone for now. As patient is on Decadron DVT prophylaxis:? Lovenox Code status:? Full code Quality Stroke Does the patient have a stroke diagnosis?: No VTE Prior VTE?: No VTE Risk Level:: Medical - moderate - high VTE Device Contraindication: Treatment Not Indicated VTE Drug Contraindication: N/A - Med Ordered
--- NOTE | 2021-11-30 20:00 | PC.NURSE ---
Pt resting in stretcher awaiting for room assignment. Pt alert, respirations easy, n/l. skin w/d. Pt up to restroom with assistance. Pt returns to stretcher w/o difficulty. Pt medicated as per emar.
[2021-11-30] MEDS: Gabapentin 300 MG CAPSULE PO (21:06)
[2021-11-30] MEDS: QUEtiapine Fumarate 25 MG TABLET PO (21:06)
[2021-11-30] MEDS: cefTRIAXone sodium 1 GM in 0.9 % Sodium Chloride 50 ML IV (21:07)
[2021-11-30] MEDS: Loperamide HCl 2 MG CAPSULE PO (21:07)
[2021-11-30] MEDS: Enoxaparin Sodium 40 MG/0.4 ML SYRINGE SUBCUT (21:07)
--- NOTE | 2021-11-30 22:00 | PC.NURSE ---
Pt medicated as per emar. Pt denies in pain and is refusing pain meds. Pt using urinal w/o difficulty. Pt denies any complaints and will continue to monitor pt.
[2021-11-30] MEDS: azaTHIOprine 50 MG TABLET PO (22:10)
[2021-11-30 22:27] VITALS: BP 148/64; PULSE 92; RESP 19; TEMP 36.8
[2021-11-30 22:29] LABS: Glucose, Whole Blood 273 mg/dL (60-115)
[2021-12-01] MEDS: Azithromycin 500 MG in 0.9 % Sodium Chloride 250 ML 125 MG IV (00:52)
[2021-12-01 04:08] VITALS: BP 152/70; PULSE 91; RESP 20; O2SAT 93
[2021-12-01 07:19] VITALS: BP 139/45; PULSE 88; RESP 19; TEMP 36.8; O2SAT 92
[2021-12-01 08:17] LABS: Glucose, Whole Blood 169 mg/dL (60-115)
[2021-12-01] MEDS: 0.9 % Sodium Chloride Flush 3 ML SYRINGE IVFLUSH (08:42)
[2021-12-01] MEDS: azaTHIOprine 50 MG TABLET PO (08:42)
[2021-12-01] MEDS: Gabapentin 300 MG CAPSULE PO (08:42)
[2021-12-01] MEDS: mycophenolate mofetiL 250 MG CAPSULE PO (08:42)
[2021-12-01] MEDS: Atorvastatin Calcium 40 MG TABLET PO (08:42)
[2021-12-01] MEDS: Loperamide HCl 2 MG CAPSULE PO (08:42)
[2021-12-01] MEDS: Valsartan 80 MG TABLET PO (08:42)
[2021-12-01] MEDS: amLODIPine Besylate 10 MG TABLET PO (08:42)
[2021-12-01] MEDS: dexAMETHasone sod phosphate 4 MG/ML VIAL 6 MG IVPUSH (08:43)
[2021-12-01] MEDS: Insulin Lispro 100 UNIT/ML 3 ML VIAL SUBCUT (08:43)
--- NOTE | 2021-12-01 10:57 | MHC.CM.PN ---
Addendum entered by Sonal Sanchez RN 12/01/21 11:10: CM MET W/PT'S NURSE TO CONFIRM D/C, PT'S NURSE VERY FAMILIAR W/PT AND FAMILY AND AWARE DTR WILL PICK PT UP AT 1PM. Original Note: [facility] 12/01/21 REVIEWED W/DTR ESPERANZA [phone] D/T COVID + STATUS, ESPERANZA REPORTS PT LIVES W/ AND 3-6 OTHER FAMILY MEMBERS DEPENDING ON WEEK DAY VS W/E, FAMILY DOES PROVIDE CARE FOR PT WHO USES A WALKING STICK OR WALKER AND IS UNSTEADY AT BASELINE, ESPERANZA REPORTS RAILINGS ON STAIRS AND GRAB BARS IN [place], PT HAS NO HOME SERVICES AND ESPERANZA REQUESTING VNA AND PT FROM [facility] HE LIKED THE NURSES HE HAD W/THEM BEFORE. DTR REPORTS 3 OF MEN WHO LIVE IN HOUSE HAVE BEEN COVID POSITIVE WELL, HCP IS CRISTO [phone] HOWEVER CM WAS UNABLE TO CONTACT HER, HCP ON FILE AND PCP VERIFIED REEMA HARGROVE. ESPERANZA AGREEABLE TO D/C HOME TODAY W/SERVICES AND WOULD LIKE TO [facility] [employer] COORDINATOR PT AT 1PM, PT'S NURSE NOTIFIED VIA BESS
--- NOTE | 2021-12-01 11:36 | P.DS_ITS ---
DS: Providers Provider Date of Service: 12/01/21 Date of admission: 11/29/21 22:38 Primary care physician: Justino Lara MD Consults: 11/29/21 22:38 Consult to Infectious Diseases Routine Consulting Provider: Diana Montanez Reason for consultation: covid PNA DS: Diagnosis Discharge Diagnosis (1) Pneumonia due to COVID-19 virus: Status: Acute DS: Summary Hospital Course Hospital Course: Hospital course Chief Complaint: SOB 71-year-old male with a past medical history of hypertension, hyperlipidemia, diabetes, myasthenia gravis, chronic diarrhea presented to the hospital with a chief complaint of shortness of breath/generalized weakness. Patient reports that he was tested positive for COVID-19 on 11/26/2021.? He has been having shortness of breath which has been gradually worsening.? Complains of generalized weakness and poor intake.? Mentions he has COVID-19 vaccinated. patient reports he has chronic diarrhea.? Patient also mentions has chest heaviness but attributes to his mass on previous; it noticed mildly increased discomfort.? Denies any chest pain per se.? Denies any urinary symptoms.? Review of all other systems is negative except mentioned above ER course: Per ER team patient relative coarse breath sounds; chest x-ray showed multiple opacities; concern for COVID-19 pneumonia.? Patient was saturating 90% on room air.? Placed on supplemental oxygen.? Given improved of compromised state and gradually worsening symptoms decided to admit to the hospital for further management. Hospital course 71-year-old male with a past medical history of hypertension, hyperlipidemia, diabetes, myasthenia gravis, chronic diarrhea presented to the hospital with a chief complaint of shortness of breath/generalized weakness.? Patient was COVID- 19 tested positive on 11/26, patient treated with IV steroids IV antibiotic responded well to above treatment, oxygenation remains stable currently 92% on 2 L patient is feeling better tolerating diet therefore being discharged home, patient has been recommended to continue his home dose of prednisone, patient is being discharged home with VNA and PT services patient ambulates with cane and walker at home and daughter notified the patient has unsteady gait at baseline, patient was noted to have elevated troponin likely secondary to hypoxia he had no chest discomfort EKG is nonspecific troponin were 32 and flat, mild transa minitis trending down no abdominal pain no nausea, no vomiting, abdominal ultrasound showed no abnormal findings diffuse hepatic steatosis cholelithiasis without evidence of cholecystitis, In regard to chronic medical issues including hypertension, diabetes chronic diarrhea and myasthenia gravis patient has been recommended to continue all home medications as before. Time Spent with Patient Time attestation: Total time spent providing and/or coordinating discharge services: Discharge coordination time: Greater than 30 minutes Quality: Safe Use of Opioids Does Pt have an Active Cancer Diagnosis on the Problem List?: No Quality: Stroke Does the patient have a stroke diagnosis?: No Physical Exam Vital Signs: Vital Signs: Last Vital Signs Temp 98.3 F 12/01/21 07:19 Pulse 88 12/01/21 07:19 Resp 19 12/01/21 07:19 BP 139/45 L 12/01/21 07:19 Pulse Ox 92 12/01/21 07:19 BMI result Body Mass Index 39.1 Const: Other: General alert oriented x3, no acute distress. Neck no JVD. CVS regular rate rhythm, Respiratory lungs coarse breath sounds,no respiratory distress, no wheeze, no rhonchi. Gastrointestinal abdomen soft, nontender, bowel sounds audible Extremities no edema. Neuro nonfocal,speech clear. Skin no rash DS: Data Data Completed and Pending Labs on day of discharge: Laboratory Results - last 24 hr 11/30/21 11/30/21 11/30/21 07:20 11:25 14:21 POC Glucose 134 H 235 H 316 H 11/30/21 11/30/21 12/01/21 16:44 22:18 07:17 POC Glucose 317 H 273 H 169 H Discharge Plan Discharge Patient Disposition: Home Health Service Discharge Diagnosis: COVID-19 pneumonia Hypoxia Referrals: [facility] [Outside] - 3-5 Days ([facility] AND HOME PHYSICAL THERAPY) Justino Lara MD [Primary Care Provider] - 1 Week Discharge Medications: Continued rosuvastatin 20 mg tablet 20 mg PO DAILY 90 Days Qty: 90 0RF quetiapine 25 mg tablet 1 tab PO BEDTIME 0RF valsartan 80 mg tablet 1 tab PO DAILY 0RF azathioprine 50 mg tablet 50 mg PO TID 0RF amlodipine 10 mg tablet 10 mg PO DAILY 0RF pyridostigmine bromide 60 mg tablet 1 tab PO QID 0RF loperamide 2 mg capsule 1 tab PO BID 0RF mycophenolate mofetil 500 mg tablet 1 tab PO BID 0RF gabapentin 300 mg capsule 1 cap PO BID 0RF clotrimazole 1 % cream 1 appl topical BID 0RF prednisone 10 mg tablet 25 mg PO DAILY 0RF glipizide 5 mg tablet 5 mg PO BID 0RF (DME) lancets [FreeStyle Lancets] 28 gauge misc See Rx Instructions ea Not Applicable DAILY Qty: 100 0RF Rx Instructions: As directed (DME) FreeStyle Lite Strips Strip See Rx Instructions ea Not Applicable DAILY Qty: 10 0RF Rx Instructions: As directed metformin 500 mg tablet 1,000 mg PO BID 0RF Discontinued cephalexin 750 mg capsule 750 mg PO QID 0RF Discharge Orders: Discharge Order (Routine); Ordered 12/01/21 Ordered By: Jose Orantes Diet: diabetic diet Activity on Discharge: As tolerated Stand Alone Forms: Patient Portal Discharge page Care Plan Goals: Generalized weakness due to COVID-19 infection stable oxygenation continue home medications, received 3 days of antibiotic no further antibiotic recommended, continue prednisone, patient is being discharged with VNA services / home PT, patient at baseline ambulates with walker Health Concerns: Follow diabetic diet continue all home medications as before Plan of Treatment: Outpatient follow-up with primary care physician in 1-2 Assessment: As per discharge summary
--- NOTE | 2021-12-01 11:45 | P.F2F_ITS ---
Service Date Service Date: 12/01/21 Encounter Date of encounter: 12/01/21 Reasons for Services Signs and symptoms assessed: Generalized weakness/COVID infection Reason for assisted: diabetic teaching and medication management Reason for physical therapy: home safety and mobility Homebound: Leaving the home is medically contraindicated at this time without the asist of a device and/or another person due th the listed conditions above and below. Reason homebound: unsteady gait / fall risk Homebound supporting statement: COVID-19 pneumonia generalized weakness, unsteady gait Certification: Based on the above findings, I certify that this patient is confined to the home and needs intermittent assisted care, physical therapy and/or speech therapy, or continues to need occupational therapy. The patient is under my care, and I have initiated the establishment of the plan of care. The patient will be followed by a physician who will periodically review the plan of care.
[2021-12-02 08:30] LABS: HBS Num1 13.29 mIU/mL (0-7.99); HBc Num1 0.07 S/CO (0.00-0.79); HBsAGNum1 0.22 S/CO (0.00-0.99); Hepatitis B Core Antibody Nonreactive (Nonreactive); Hepatitis B Surface Antigen Negative (Negative); ~HepC Num1 0.05 S/CO (0.00-0.79); ~Hepatitis B Surface Antibody REACTIVE (Nonreactive); ~Hepatitis C Antibody Nonreactive (Nonreactive)
[2021-12-03 09:30] LABS: Hepatitis A Antibody IgM 0.31 Index (0-0.79); ~Hepatitis A Antibody IgM Nonreactive (Nonreactive)
== END 2021-12-01 14:11 | disposition home health service (06) | DRG 177 ==
LOC: HO.ED 23:06 → HO.EDOVER 23:53
PROVIDERS: Internal Medicine; Admitting Provider Hospitalist; Emergency Provider Emergency Medicine Emergency Medical Services; PCP Internal Medicine; Visit Provider Hospitalist
DX: U07.1 COVID-19 (principal); J12.82 Pneumonia due to coronavirus disease 2019; K52.9 Noninfective gastroenteritis and colitis, unspecified; I10 Essential (primary) hypertension; G70.00 Myasthenia gravis without (acute) exacerbation; E11.9 Type 2 diabetes mellitus without complications; Z28.311 Partially vaccinated for COVID-19; I25.2 Old myocardial infarction; Z87.820 Personal history of traumatic brain injury; Z79.84 Long term (current) use of oral hypoglycemic drugs; Z79.52 Long term (current) use of systemic steroids; Z79.899 Other long term (current) drug therapy
CPT/HCPCS: 36415; 71045; 71275; 76705; 76775; 80048; 80053; 80076; 80202; 81001; 82043; 82140; 82436; 82565; 82803; 82947; 83605; 83880; 84133; 84145; 84156; 84300; 84484; 85014; 85018; 85025; 85027; 85379; 85610; 85730; 86140; 86704; 86706; 86709; 86803; 87040; 87340; 87502; 87635; 87640; 87641; 92610; 93005; 94640; 94664; 96361; 96374; 97116; 97162; 97530; 99285; 99291; J0456; J0696; J1100; J1650; J1940; J2270; J2405; J2543; J3370; P9047; Q9967

== ENCOUNTER 2021-12-02 05:45 | Inpatient (IN) | payer MEDICARE, MEDICAID, SELFPAY ==
[2021-12-02] VITALS (7 sets, daily range): BP systolic 90–196; BP diastolic 61–80; PULSE 84–109; RESP 18–26; TEMP 36.8–37; O2SAT 90–94; BMI 37.5
--- NOTE | ~2021-12-02 | XR_ITS ---
EXAMINATION: XR CHEST CLINICAL INFORMATION: Shortness of breath. COMPARISON: Recent chest CT from 11/30/2021. TECHNIQUE: Frontal view of the chest was obtained. FINDINGS: Emphysematous changes are better appreciated on the prior CT study. Mild patchy density laterally in the right midlung may be due to subsegmental atelectasis versus scarring. There is hazy density left lower lung which is indeterminate. There is question of a small left-sided pleural effusion The cardiomediastinal silhouette is stable. No acute osseous abnormality is seen. XR/XR chest 1V IMPRESSION: Hazy densities laterally in the right mid lung and in the left lower lung which are indeterminate and could reflect subsegmental atelectasis or scarring. Developing infiltrate cannot be ruled out. Underlying mild to moderate upper lobe emphysema. Question of a small left-sided pleural effusion; correlate with findings on auscultation.
--- NOTE | ~2021-12-02 | XR_ITS ---
EXAMINATION: PORTABLE CHEST 1 VIEW CLINICAL INFORMATION: worsening SOB . COMPARISON: 12/05/2021. TECHNIQUE: Portable frontal view of the chest was obtained. FINDINGS: The lungs are hypoexpanded with patchy bilateral airspace disease left more so than right. This is significantly increased from yesterday's study with small layering bilateral pleural effusions. No overt edema or pneumothorax. Cardiac silhouette is prominent with vascular calcification in aorta. No acute bony abnormality XR/XR chest 1V IMPRESSION: Worsened bilateral airspace disease left more so than right. Infectious etiology would be favored. This would be an atypical pattern for asymmetric pulmonary edema. Clinical correlation would be needed.
--- NOTE | ~2021-12-02 | XR_ITS ---
EXAMINATION: XR CHEST CLINICAL INFORMATION: Pulmonary edema COMPARISON: Chest 12/06/2021 TECHNIQUE: Frontal view of the chest was obtained. FINDINGS: The lungs are well-expanded with patchy airspace disease left lung base. The right lung base patchy airspace disease as improved with some residual changes. The upper lungs are clear. The heart size is mildly increased. Pulmonary vascularity is normal. No gross bony abnormality seen. XR/XR chest 1V IMPRESSION: Interval improvement in bilateral airspace disease with some residual changes still persist in the left lower lobe and right lung base.
--- NOTE | ~2021-12-02 | XR_ITS ---
EXAMINATION: XR CHEST CLINICAL INFORMATION: Hypoxia/pneumonia COMPARISON: 12/02/2021 TECHNIQUE: Frontal view of the chest was obtained. FINDINGS: Cardiac leads overlie the chest. Lung volumes are low. Small left pleural effusion. Diffuse bronchial wall thickening. Patchy opacity at the left base. No pneumothorax. The cardiomediastinal silhouette remains prominent, with a calcified aorta. XR/XR chest 1V IMPRESSION: Small left pleural effusion. Bronchial wall thickening can be seen with a small airways process such as asthma or atypical/viral infection. Left basilar opacity could represent superimposed atelectasis or pneumonia.
--- NOTE | ~2021-12-02 | US_ITS ---
EXAMINATION: US RETROPERITONEAL LIMITED (RENAL ONLY) CLINICAL INFORMATION: [place]. COMPARISON: Ultrasound abdomen limited 11/30/2021. CT abdomen and pelvis 10/08/2019. TECHNIQUE: Real-time imaging of the kidneys. FINDINGS: RIGHT KIDNEY: 12.6 x 6.4 x 6 cm (SAG x AP x TRV). The kidney is normal in size, contour, and echogenicity. Renal cortical thickness is normal. No calculi or focal parenchymal lesions. No hydronephrosis. LEFT KIDNEY: 12.2 x 6.1 x 5.6 cm (SAG x AP x TRV). The kidney is normal in size, contour, and echogenicity. Renal cortical thickness is normal. No calculi or focal parenchymal lesions. No hydronephrosis. US/US renal BI IMPRESSION: No acute sonographic abnormalities. The kidneys have normal size and echotexture. No evidence of renal stone or hydronephrosis.
--- NOTE | ~2021-12-02 | XR_ITS ---
EXAMINATION: XR CHEST CLINICAL INFORMATION: CHF COMPARISON: Chest 12/08/2021 TECHNIQUE: Frontal view of the chest was obtained. FINDINGS: The lungs are well-expanded with patchy opacity seen in left lower lobe similar previous study. There is mild blunting of right CP angle from pleural effusion. There is further improvement in right basilar infiltrate from 12/06/2021. Heart size is mildly enlarged. Pulmonary vascularity is normal. No gross bony abnormality seen. XR/XR chest 1V IMPRESSION: Improved left basilar infiltrate since 12/06/2021 with some residual findings still noted. There is mild blunting of right CP angle pleural effusion. Previously seen right right lower lobe infiltrate has further improved.
--- NOTE | 2021-12-02 06:07 | ECG_ITS ---
Test Reason : SOB Blood Pressure : / mmHG Vent. Rate : 104 BPM Atrial Rate : 104 BPM P-R Int : 130 ms QRS Dur : 086 ms QT Int : 340 ms P-R-T Axes : 043 -24 029 degrees QTc Int : 447 ms Sinus tachycardia Otherwise normal ECG When compared with ECG of 29-NOV-2021 13:54, Premature ventricular complexes are no longer Present Referred By: Ivy Jennings Electronically Signed By:FEDERICO CSOTT MD
[2021-12-02] MEDS: 0.9 % Sodium Chloride 1,000 ML 999 ML IV (06:27)
[2021-12-02 06:31] LABS: Basophils Percent Auto 0.2 % (0-2); Eosinophils Percent Auto 0.2 % (0-4); Imm Gran Abs Auto 0.05 X10*3/uL (0.00-0.03); Imm Gran Pct Auto 0.8 % (0.0-0.4); Lymphocytes Absolute Auto 0.5 X10*3/uL (1.2-4.9); Lymphocytes Percent Auto 8.1 % (20-40); MANUAL DIFF FLAG NO; Mean Corpuscular HGB Conc 31.7 g/dl (31.0-36.0); Mean Corpuscular Hemoglobin 26.8 pg (27.0-33.0); Mean Corpuscular Volume 84.5 fL (80.0-98.0); Monocytes Absolute Auto 0.2 X10*3/uL (0.1-1.2); Monocytes Percent Auto 2.7 % (2-11); Neutrophils Absolute Auto 5.9 x10*3/uL (2.0-8.3); Platelet Count 213 X10*3/uL (160-400); Red Blood Count 4.85 X10*6/uL (4.60-5.80); Red Cell Distribution Width 19.3 % (11.0-16.0); White Blood Count 6.7 X10*3/uL (4.8-10.8)
[2021-12-02 06:34] LABS: Venous Blood Gas Refer to POC result
[2021-12-02 06:35] LABS: VBG HCO3 22 mmol/L (22-26); VBG pCO2 37 mmHg; VBG pH 7.38 (7.32-7.43); VBG pO2 39 mmHg
[2021-12-02 06:41] LABS: COVID-19 Test Positive (Negative)
--- NOTE | 2021-12-02 06:47 | ED.GENADULT ---
HPI - General Adult General Chief complaint: General Medical Stated complaint: diffiiculty breathing (pneumonia & COVID+), nausea Time Seen by Provider: 12/02/21 06:07 Source: patient Mode of arrival: EMS History of Present Illness HPI narrative: 71-year-old male who is brought in by EMS for shortness of breath and a recent diagnosis of COVID on Wednesday. Patient also reports fever although is noted to be afebrile here. Patient has a history of a TBI which causes some stuttering, he denies chest pain/palpitations and denies GI or symptoms. Related Data Home Medications Medication Instructions Recorded Confirmed amlodipine 10 mg tablet 10 mg PO DAILY 06/02/20 12/02/21 azathioprine 50 mg tablet 50 mg PO TID 06/02/20 12/02/21 pyridostigmine bromide 60 mg tablet 1 tab PO QID 06/02/20 12/02/21 quetiapine 25 mg tablet 1 tab PO BEDTIME 06/02/20 12/02/21 valsartan 80 mg tablet 1 tab PO DAILY 06/02/20 12/02/21 blood sugar diagnostic (FreeStyle #10 ea 03/05/21 05/02/21 Lite Strips) lancets 28 gauge (FreeStyle #100 ea 03/05/21 05/02/21 Lancets) clotrimazole 1 % topical cream 1 appl TOPICAL BID 08/24/21 12/02/21 gabapentin 300 mg capsule 1 cap PO BID 08/24/21 12/02/21 loperamide 2 mg capsule 1 tab PO BID 08/24/21 12/02/21 mycophenolate mofetil 500 mg tablet 1 tab PO BID 08/24/21 12/02/21 metformin 500 mg tablet 1,000 mg PO BID 09/02/21 12/02/21 glipizide 5 mg tablet 5 mg PO BID 11/30/21 12/02/21 prednisone 10 mg tablet 25 mg PO DAILY 11/30/21 12/02/21 Previous Rx's Medication Instructions Recorded rosuvastatin 20 mg tablet 20 mg PO DAILY 90 Days #90 tab 10/17/21 Allergies Allergy/AdvReac Type Severity Reaction Status Date / Time No Known Allergies Allergy Verified 09/02/21 14:18 [No Known Allergies*] Review of Systems Review of Systems: Pertinent positives and negatives as stated in HPI 10 point review of systems is otherwise negative. [facility] Past Medical History Source: nursing notes reviewed Medical History Diabetes mellitus, type 2 Erythema of lower extremity Hypercholesteremia Hypertension Myasthenia gravis Myocardial infarction Obesity TBI (traumatic brain injury) Social History Social History Household Members: Spouse Housing: House Do you presently have visiting nurse or other home services: Yes Unable to assess alcohol history related to: Unknown Alcohol intake: never Patient Tobacco Use Status: Never used Tobacco Advance Directives: Yes Advance Directives on File: Yes Advance Directives Date on File: 05/05/21 service: No Current occupational status: retired Physical Exam ED Vital Signs: Vital Signs - 24 hr 12/02/21 05:53 12/02/21 06:30 Temperature 98.6 F Pulse Rate 108 H 105 H Respiratory Rate 18 20 Blood Pressure 90/73 169/74 H Pulse Oximetry 90 L 94 BMI result Body Mass Index 37.5 VITAL SIGNS: Reviewed. GENERAL: Well developed, well nourished, in no acute distress. HEAD: Normocephalic/atraumatic, significant facial flushing EYES: PERRLA, EOMI EARS: Ext canals without abnormality, TMs non-bulging and non-erythematous NOSE: Nares patent bilateral OROPHARYNX: no oral lesions noted, posterior pharynx clear and non-erythematous without noted tonsillar enlargement/erythema/exudates NECK: Supple, no adenopathy LUNGS: Normal breath sounds. No adventitious sounds or accessory muscle use. SpO2<90> oxygenation improved when placed on 2 L to 93%. CARDIOVASCULAR: Regular rate and rhythm without noted murmurs, no JVD but bilateral lower extremity 1 to 2+ pitting edema ABDOMEN: Soft, non-tender, non-distended with bowel sounds. MUSCULOSKELETAL: No tenderness, deformities, or effusions noted on gross inspection. EXTREMITIES: No cyanosis, clubbing or edema, there is mild erythema to bilateral lower extremities with a few scabs but low clinical suspicion for cellulitis SKIN: Inspection of the skin reveals no rashes NEUROLOGIC: Alert and oriented x 4. Strength and sensation to light touch were grossly intact x 4. Course Course Course Narrative: 06: 71-year-old male with history and clinical presentation consistent with COVID-19 infection which is causing a SIRS response however low clinical suspicion for bacterial infection. Review of all investigations consistent with COVID-19 infection/pneumonia with hypoxia. I discussed with inpatient hospitalist, consult placed for pharmacy to reconcile medications and patient is otherwise hemodynamically stable. Reevaluation(s) Reevaluation #1: Informed that patient's lactic acid was 3, suspect that this is secondary to dehydration and viral illness. Time: 06:48 Medical Decision Making Lab Data Result diagrams: 12/02/21 06:23 12/02/21 06:23 Labs: Lab Results 12/02/21 12/02/21 12/02/21 Range/Units 06:23 06:23 06:23 WBC 6.7 (4.8-10.8) X10*3/uL RBC 4.85 (4.60-5.80) X10*6/uL Hgb 13.0 L (14.0-18.0) g/dl Hct 41.0 L (42.0-52.0) % MCV 84.5 (80.0-98.0) fL MCH 26.8 L (27.0-33.0) pg MCHC 31.7 (31.0-36.0) g/dl RDW 19.3 H (11.0-16.0) % Plt Count 213 D (160-400) X10*3/uL MPV 9.0 L (9.4-12.4) fL Immature Gran % (Auto) 0.8 H (0.0-0.4) % Neut % (Auto) 88.0 H (45-73) % Lymph % (Auto) 8.1 L (20-40) % [place] % (Auto) 2.7 (2-11) % Eos % (Auto) 0.2 (0-4) % Baso % (Auto) 0.2 (0-2) % Lymph # (Auto) 0.5 L (1.2-4.9) X10*3/uL [place] # (Auto) 0.2 (0.1-1.2) X10*3/uL Eos # (Auto) 0.0 (0.0-0.4) X10*3/uL Baso # (Auto) 0.0 (0.0-0.2) X10*3/uL Abs Immat Gran (auto) 0.05 H (0.00-0.03) X10*3/uL Absolute Neuts (auto) 5.9 (2.0-8.3) x10*3/uL Absolute Nucleated RBC 0.000 (0.0-0.012) X10*3/uL Nucleated RBC % (auto) 0.0 (0.0-0.2) /100WBC VBG pH (7.32-7.43) VBG pCO2 mmHg VBG pO2 mmHg VBG HCO3 (22-26) mmol/L VBG O2 Saturation % VBG Base Excess mmol/L Sodium 138 (135-145) mmol/L Potassium 3.7 (3.3-5.1) mmol/L Chloride 103 (96-108) mmol/L Carbon Dioxide 22 (22-29) mmol/L Anion Gap 17 (12-20) BUN 13 (9-16) mg/dL Creatinine 0.83 (0.5-1.4) mg/dL Estim Creat Clear Calc 93.2 Estimated GFR > 60 Random Glucose 74 D (60-115) mg/dL Lactic Acid (0.5-2.0) mmol/L Calcium 8.6 D (8.4-10.2) mg/dL Total Bilirubin 0.8 (0.0-1.0) mg/dL AST 67 H (5-37) U/L ALT 62 H (0-40) U/L Alkaline Phosphatase 30 L (39-117) U/L B-Natriuretic Peptide 26 (<100) pg/mL Total Protein 6.7 (6.5-8.0) g/dL Albumin 3.7 (3.5-5.0) g/dL COVID-19 (MANISHA) (Negative) COVID-19 Clin Com Influenza Type A (VANDANA) (Negative) Influenza Type B (VANDANA) (Negative) Influenza A & B Note 12/02/21 12/02/21 12/02/21 Range/Units 06:23 06:24 06:24 WBC (4.8-10.8) X10*3/uL RBC (4.60-5.80) X10*6/uL Hgb (14.0-18.0) g/dl Hct (42.0-52.0) % MCV (80.0-98.0) fL MCH (27.0-33.0) pg MCHC (31.0-36.0) g/dl RDW (11.0-16.0) % Plt Count (160-400) X10*3/uL MPV (9.4-12.4) fL Immature Gran % (Auto) (0.0-0.4) % Neut % (Auto) (45-73) % Lymph % (Auto) (20-40) % [place] % (Auto) (2-11) % Eos % (Auto) (0-4) % Baso % (Auto) (0-2) % Lymph # (Auto) (1.2-4.9) X10*3/uL [place] # (Auto) (0.1-1.2) X10*3/uL Eos # (Auto) (0.0-0.4) X10*3/uL Baso # (Auto) (0.0-0.2) X10*3/uL Abs Immat Gran (auto) (0.00-0.03) X10*3/uL Absolute Neuts (auto) (2.0-8.3) x10*3/uL Absolute Nucleated RBC (0.0-0.012) X10*3/uL Nucleated RBC % (auto) (0.0-0.2) /100WBC VBG pH (7.32-7.43) VBG pCO2 mmHg VBG pO2 mmHg VBG HCO3 (22-26) mmol/L VBG O2 Saturation % VBG Base Excess mmol/L Sodium (135-145) mmol/L Potassium (3.3-5.1) mmol/L Chloride (96-108) mmol/L Carbon Dioxide (22-29) mmol/L Anion Gap (12-20) BUN (9-16) mg/dL Creatinine (0.5-1.4) mg/dL Estim Creat Clear Calc Estimated GFR Random Glucose (60-115) mg/dL Lactic Acid 3.0 H* (0.5-2.0) mmol/L Calcium (8.4-10.2) mg/dL Total Bilirubin (0.0-1.0) mg/dL AST (5-37) U/L ALT (0-40) U/L Alkaline Phosphatase (39-117) U/L B-Natriuretic Peptide (<100) pg/mL Total Protein (6.5-8.0) g/dL Albumin (3.5-5.0) g/dL COVID-19 (MANISHA) Positive A (Negative) COVID-19 Clin Com See Note Influenza Type A (VANDANA) Negative (Negative) Influenza Type B (VANDANA) Negative (Negative) Influenza A & B Note See Note 12/02/21 Range/Units 06:26 WBC (4.8-10.8) X10*3/uL RBC (4.60-5.80) X10*6/uL Hgb (14.0-18.0) g/dl Hct (42.0-52.0) % MCV (80.0-98.0) fL MCH (27.0-33.0) pg MCHC (31.0-36.0) g/dl RDW (11.0-16.0) % Plt Count (160-400) X10*3/uL MPV (9.4-12.4) fL Immature Gran % (Auto) (0.0-0.4) % Neut % (Auto) (45-73) % Lymph % (Auto) (20-40) % [place] % (Auto) (2-11) % Eos % (Auto) (0-4) % Baso % (Auto) (0-2) % Lymph # (Auto) (1.2-4.9) X10*3/uL [place] # (Auto) (0.1-1.2) X10*3/uL Eos # (Auto) (0.0-0.4) X10*3/uL Baso # (Auto) (0.0-0.2) X10*3/uL Abs Immat Gran (auto) (0.00-0.03) X10*3/uL Absolute Neuts (auto) (2.0-8.3) x10*3/uL Absolute Nucleated RBC (0.0-0.012) X10*3/uL Nucleated RBC % (auto) (0.0-0.2) /100WBC VBG pH 7.38 (7.32-7.43) VBG pCO2 37 mmHg VBG pO2 39 mmHg VBG HCO3 22 (22-26) mmol/L VBG O2 Saturation 55.0 % VBG Base Excess -2.0 mmol/L Sodium (135-145) mmol/L Potassium (3.3-5.1) mmol/L Chloride (96-108) mmol/L Carbon Dioxide (22-29) mmol/L Anion Gap (12-20) BUN (9-16) mg/dL Creatinine (0.5-1.4) mg/dL Estim Creat Clear Calc Estimated GFR Random Glucose (60-115) mg/dL Lactic Acid (0.5-2.0) mmol/L Calcium (8.4-10.2) mg/dL Total Bilirubin (0.0-1.0) mg/dL AST (5-37) U/L ALT (0-40) U/L Alkaline Phosphatase (39-117) U/L B-Natriuretic Peptide (<100) pg/mL Total Protein (6.5-8.0) g/dL Albumin (3.5-5.0) g/dL COVID-19 (MANISHA) (Negative) COVID-19 Clin Com Influenza Type A (VANDANA) (Negative) Influenza Type B (VANDANA) (Negative) Influenza A & B Note ECG Data Attestation: I personally reviewed and interpreted this ECG as follows: Prior ECG tracings: available for review Interpretation: Sinus tachycardia, HR-104, no STEMI, [place]/QRS/QTC are within normal limits. Discharge Plan Discharge Clinical Impression: Pneumonia due to COVID-19 virus, Myasthenia gravis, Erythema of lower extremity, Diabetes, Hypoxia Patient Disposition: Admitted As Inpatient
[2021-12-02 06:49] LABS: IDNOW Serial# 16C4AD1C; Influenza A Negative (Negative); Influenza B2 Negative (Negative)
[2021-12-02 06:51] LABS: Alanine Aminotransferase 62 U/L (0-40); Albumin Level 3.7 g/dL (3.5-5.0); Alkaline Phosphatase 30 U/L (39-117); Anion Gap 17 (12-20); Aspartate Amino Transferase 67 U/L (5-37); Bilirubin Total 0.8 mg/dL (0.0-1.0); Blood Urea Nitrogen 13 mg/dL (9-16); Calcium 8.6 mg/dL (8.4-10.2); Carbon Dioxide 22 mmol/L (22-29); Chloride 103 mmol/L (96-108); Creatinine Clr Calc Pharmacy 93.2; Estimated Glomerular Filt Rate > 60; Glucose Random 74 mg/dL (60-115); Potassium 3.7 mmol/L (3.3-5.1); Sodium 138 mmol/L (135-145); Total Protein 6.7 g/dL (6.5-8.0)
[2021-12-02 06:55] LABS: B Type Natriuretic Peptide 26 pg/mL (<100)
--- NOTE | 2021-12-02 07:19 | PHA.MEDREC ---
Pharmacy Consult ? Medication Reconciliation Pharmacy has completed the medication reconciliation. Patient just discharged yesterday. No changes on admission. Shirley Esposito, KarieD
[2021-12-02 07:30] LABS: Troponin-I High Sensitivity 25.2 ng/L (<3.5-35.0)
[2021-12-02 07:45] LABS: C Reactive Protein 10.29 mg/dL (< or = 0.50)
[2021-12-02 08:28] LABS: Reflex Lactate? Lactic Acid Added
[2021-12-02 09:14] LABS: ~Lactic Acid-LAB USE ONLY 1.5 mmol/L (0.5-2.0)
--- NOTE | 2021-12-02 09:20 | PC.NURSE ---
Pt alert, oriented x2. No visible sob noted. Speaking full sentences. Sat 93% on 2llpm via nc. Repeat lactic drawn. Pt awaits admission. Sheryl updated and sent home from waiting room.
[2021-12-02 10:28] LABS: Appearance Urine HAZY; Color Urine DK YELLOW; Glucose Urine UA NEG (NEG); Leukocyte Esterase Urine NEG (NEG); Nitrite Urine NEG (NEG); Specific Gravity - Urine >= 1.030 (1.005-1.025); UACC Culture Trigger NO; Urine Blood NEG (NEG); Urine Ketones 5 MG/DL (NEG); Urine Protein 2+ MG/DL (NEG-TRACE)
[2021-12-02 10:36] LABS: Mucus Urine 3+ /LPF; RBC Urine 0 /HPF (0); Squamous Epithelial Cell Urine 1+ /LPF; WBC Urine 0 /HPF (0-4)
--- NOTE | 2021-12-02 18:56 | PC.NURSE ---
pt a&ox2, sinus tach, hypertensive, pt reports not feeling good, reporting nausea and dizziness. denies any pain at this time. provider notified.
[2021-12-02] MEDS: ondansetron HCL 4 MG/2 ML VIAL IVPUSH (19:27)
--- NOTE | 2021-12-02 20:54 | PM.IMHP ---
History of Present Illness Date of Service: 12/02/21 Chief Complaint: not feeling well This is a 71-year-old male with past medical history of hypertension, hyperlipidemia, diabetes, myasthenia gravis, chronic diarrhea who presented to the hospital with complaints of persistent illness. Patient initially admitted to the hospital on 11/29, discharged on 12/01 for COVID pneumonia. Patient tested positive for COVID-19 on 11/26 with progressively feeling more short of breath, constant nausea and vomiting. On discharge on 12/01 patient was hemodynamically stable satting 92% on 2 L of oxygen. He was sent home with VNA and PT service. He returns today stating that he continues to not feel well, he has had progressively worsening shortness of breath, he has constant nausea and vomiting. He is unable to keep anything down, low appetite. Denies any chest pain, no abdominal pain, known diarrhea or constipation, no urinary symptoms at this time. No lower extremity edema. On arrival to the ED patient's vitals were significant for temp of 98.3 degrees, heart rate of 107, respiratory rate of 23, blood pressure 196/76, dropping to 90% oxygen on room air. Labs are significant for WBC count of 6.7, hemoglobin of 13, lactic acid of 3.0, AST of 67, ALT of 62, UA negative for infection, COVID-[address] angiogram done on 11/30 showed multifocal ground-glass opacities. Chest x-ray done on this admission shows hazy densities laterally in the right middle lung and in the left lower lung which are indeterminate and could reflect subsegmental attacks is has or scarring. Developing infiltrate cannot be ruled out. Given patient's tachycardia, tachypnea and hypoxia on minimal exertion patient meets SIRS criteria and will be admitted for further management. Review of Systems Review of Systems: Yes all other systems are reviewed and are negative PENDING SALE TO [facility] Medical History (Updated 12/03/21 @ 06:25 by Rico Lewis MD) Diabetes mellitus, type 2 Erythema of lower extremity Hypercholesteremia Hypertension Myasthenia gravis Myocardial infarction Obesity TBI (traumatic brain injury) Family History (Updated 12/03/21 @ 06:23 by Rico Lewis MD) Other No family history of coronary artery disease Social History Household Members: Spouse Housing: House Do you presently have visiting nurse or other home services: Yes Unable to assess alcohol history related to: Unknown Alcohol intake: never Patient Tobacco Use Status: Never used Tobacco Use of substances other than those prescribed or required for medical reasons: No Advance Directives: Yes Advance Directives on File: Yes Advance Directives Date on File: 05/05/21 service: No Current occupational status: retired Meds Allergies Allergy/AdvReac Type Severity Reaction Status Date / Time No Known Allergies Allergy Verified 09/02/21 14:18 [No Known Allergies*] Active Medications: Current Medications Acetaminophen (Acetaminophen 325 Mg Tablet) 650 mg PO Q6H PRN PRN Reason: Pain, Mild (Pain Scale 1-3) Amlodipine Besylate (Amlodipine Besylate 10 Mg Tablet) 10 mg PO DAILY [facility]; Protocol Azathioprine (Azathioprine 50 Mg Tablet) 50 mg PO TID [facility] Clotrimazole (Clotrimazole 1 % Cream 15 Gm Tube) 1 appl TOPICAL BID [facility]; Protocol Dexamethasone Sodium Phosphate (Dexamethasone Sod Phosphate 4 Mg/Ml Vial) 6 mg IVPUSH DAILY [facility] Dextrose (Dextrose 50 % 25 Gm/50 Ml Syringe) 25 gm IVPUSH Q15M PRN; Protocol PRN Reason: per Hypoglycemia Standing Ord. Docusate Sodium (Docusate Sodium 100 Mg Capsule) 100 mg PO DAILY PRN PRN Reason: Constipation Gabapentin (Gabapentin 300 Mg Capsule) 300 mg PO BID [facility] Glucose (Glucose Gel 15 Gm Gel..Gram.) 15 gm PO Q15M PRN; Protocol PRN Reason: per Hypoglycemia Standing Ord. Heparin Sodium (Porcine) (Heparin Sodium,Porcine 5,000 Unit/Ml Vial) 5,000 unit SUBCUT Q12H [facility] Piperacillin Sod/Tazobactam (Sod 3.375 gm/ Sodium Chloride) 50 mls @ 100 mls/hr IV Q6H [facility] Vancomycin HCl 1,250 mg/ (Sodium Chloride) 250 mls @ 166.667 mls/hr IV Q12H [facility] Insulin Human Lispro (Insulin Lispro 100 Unit/Ml 3 Ml Vial) 0 unit SUBCUT QIDACHS [facility]; Protocol Loperamide HCl (Loperamide Hcl 2 Mg Capsule) 2 mg PO BID [facility] Non-Formulary Medication (Mycophenolate Mofetil) 1 tab PO BID [facility] Non-Formulary Medication (Rosuvastatin) 20 mg PO DAILY [facility] Ondansetron HCl (Ondansetron Hcl 4 Mg/2 Ml Vial) 4 mg IVPUSH Q8H PRN PRN Reason: Nausea and Vomiting Pharmacy Consult (Consult Rx Perform Med Rec) 1 each MISCELLANE ONCE PRN PRN Reason: Consult order Pharmacy Consult (Consult Rx Vancomycin Dosing) 1 each MISCELLANE DAILY PRN PRN Reason: Consult order Pyridostigmine [place] (Pyridostigmine [place] 60 Mg Tablet) 60 mg PO QID [facility] Quetiapine Fumarate (Quetiapine Fumarate 25 Mg Tablet) 25 mg PO BEDTIME [facility] Sodium Chloride (0.9 % Sodium Chloride Flush 3 Ml Syringe) 3 ml IVFLUSH QSHIFT [facility] Valsartan (Valsartan 80 Mg Tablet) 80 mg PO DAILY [facility]; Protocol Home Medications Medication Instructions Recorded Confirmed Last Taken Type amlodipine 10 mg tablet 10 mg PO DAILY 06/02/20 12/02/21 08/24/21 History azathioprine 50 mg tablet 50 mg PO TID 06/02/20 12/02/21 08/24/21 History pyridostigmine bromide 60 mg tablet 1 tab PO QID 06/02/20 12/02/21 08/24/21 History quetiapine 25 mg tablet 1 tab PO BEDTIME 06/02/20 12/02/21 08/24/21 History valsartan 80 mg tablet 1 tab PO DAILY 06/02/20 12/02/21 08/24/21 History blood sugar diagnostic (FreeStyle #10 ea 03/05/21 05/02/21 Unknown History Lite Strips) lancets 28 gauge (FreeStyle #100 ea 03/05/21 05/02/21 Unknown History Lancets) clotrimazole 1 % topical cream 1 appl TOPICAL BID 08/24/21 12/02/21 08/24/21 History gabapentin 300 mg capsule 1 cap PO BID 08/24/21 12/02/21 08/24/21 History loperamide 2 mg capsule 1 tab PO BID 08/24/21 12/02/21 08/24/21 History mycophenolate mofetil 500 mg tablet 1 tab PO BID 08/24/21 12/02/21 08/24/21 History metformin 500 mg tablet 1,000 mg PO BID 09/02/21 12/02/21 Unknown History glipizide 5 mg tablet 5 mg PO BID 11/30/21 12/02/21 Unknown History prednisone 10 mg tablet 25 mg PO DAILY 11/30/21 12/02/21 Unknown History Physical Exam Vital Signs and Narrative: Vital Signs: Last Vital Signs Temp 98.3 F 12/02/21 18:00 Pulse 109 H 12/02/21 19:26 Resp 26 H 12/02/21 19:26 BP 187/77 H 12/02/21 19:26 Pulse Ox 92 12/02/21 19:26 BMI result Body Mass Index 37.5 Const: Other: Patient has stuttering but answers questions appropriately General: cooperative and no acute distress Orientation/consciousness: patient oriented x3 Eyes: General: appearance normal, both eyes and all related structures Resp: Other: Crackles bilaterally Effort & Inspection: normal respiratory effort Auscultation: clear to auscultation bilaterally Cardio: Rate: regular rate Rhythm: regular rhythm GI: Palpation (GI): Soft to palpation Auscultation: normal bowel sounds Skin: General skin exam: no rashes or lesions noted Neuro: General: patient oriented x3 Cognition (Neuro): normal cognition Extrem: General: Yes normal to inspection and Yes no pedal edema Results Labs CBC and Chem 7: 12/02/21 06:23 12/02/21 06:23 Labs: Laboratory Results - last 24 hr 12/02/21 12/02/21 12/02/21 06:23 06:23 06:23 MCV 84.5 MCH 26.8 L MCHC 31.7 RDW 19.3 H Plt Count 213 D MPV 9.0 L Immature Gran % (Auto) 0.8 H Neut % (Auto) 88.0 H Lymph % (Auto) 8.1 L [place] % (Auto) 2.7 Eos % (Auto) 0.2 Baso % (Auto) 0.2 Lymph # (Auto) 0.5 L [place] # (Auto) 0.2 Eos # (Auto) 0.0 Baso # (Auto) 0.0 Abs Immat Gran (auto) 0.05 H Absolute Neuts (auto) 5.9 Absolute Nucleated RBC 0.000 Nucleated RBC % (auto) 0.0 VBG pH VBG pCO2 VBG pO2 VBG HCO3 VBG O2 Saturation VBG Base Excess Anion Gap 17 Estim Creat Clear Calc 93.2 Estimated GFR > 60 Random Glucose 74 D Lactic Acid Lactic Acid F/U @ 2Hr Calcium 8.6 D Total Bilirubin 0.8 AST 67 H ALT 62 H Alkaline Phosphatase 30 L Troponin I High Sens 25.2 C-Reactive Protein 10.29 H B-Natriuretic Peptide 26 Total Protein 6.7 Albumin 3.7 Urine Color Urine Appearance Urine pH Ur Specific [place] Urine Protein Urine Glucose (UA) Urine Ketones Urine Blood Urine Nitrite Ur Leukocyte Esterase Urine RBC Urine WBC Ur Squamous Epith Cells Urine Bacteria Urine Mucus COVID-19 ([facility]ISHA) COVID-19 Clin Com Influenza Type A ([facility]ANDANA) Influenza Type B (VANDANA) Influenza A & B Note 12/02/21 12/02/21 12/02/21 06:23 06:24 06:24 MCV MCH MCHC RDW Plt Count MPV Immature Gran % (Auto) Neut % (Auto) Lymph % (Auto) [place] % (Auto) Eos % (Auto) Baso % (Auto) Lymph # (Auto) [place] # (Auto) Eos # (Auto) Baso # (Auto) Abs Immat Gran (auto) Absolute Neuts (auto) Absolute Nucleated RBC Nucleated RBC % (auto) VBG pH VBG pCO2 VBG pO2 VBG HCO3 VBG O2 Saturation VBG Base Excess Anion Gap Estim Creat Clear Calc Estimated GFR Random Glucose Lactic Acid 3.0 H* Lactic Acid F/U @ 2Hr Calcium Total Bilirubin AST ALT Alkaline Phosphatase Troponin I High Sens C-Reactive Protein B-Natriuretic Peptide Total Protein Albumin Urine Color Urine Appearance Urine pH Ur Specific [place] Urine Protein Urine Glucose (UA) Urine Ketones Urine Blood Urine Nitrite Ur Leukocyte Esterase Urine RBC Urine WBC Ur Squamous Epith Cells Urine Bacteria Urine Mucus COVID-19 (MANISHA) Positive A COVID-19 Clin Com See Note Influenza Type A (VANDANA) Negative Influenza Type B (VANDANA) Negative Influenza A & B Note See Note 12/02/21 12/02/21 12/02/21 06:26 08:53 10:12 MCV MCH MCHC RDW Plt Count MPV Immature Gran % (Auto) Neut % (Auto) Lymph % (Auto) [place] % (Auto) Eos % (Auto) Baso % (Auto) Lymph # (Auto) [place] # (Auto) Eos # (Auto) Baso # (Auto) Abs Immat Gran (auto) Absolute Neuts (auto) Absolute Nucleated RBC Nucleated RBC % (auto) VBG pH 7.38 VBG pCO2 37 VBG pO2 39 VBG HCO3 22 VBG O2 Saturation 55.0 VBG Base Excess -2.0 Anion Gap Estim Creat Clear Calc Estimated GFR Random Glucose Lactic Acid Lactic Acid F/U @ 2Hr 1.5 Calcium Total Bilirubin AST ALT Alkaline Phosphatase Troponin I High Sens C-Reactive Protein B-Natriuretic Peptide Total Protein Albumin Urine Color DK YELLOW Urine Appearance HAZY Urine pH 6.0 Ur Specific [place] >= 1.030 H Urine Protein 2+ H Urine Glucose (UA) NEG Urine Ketones 5 Urine Blood NEG Urine Nitrite NEG Ur Leukocyte Esterase NEG Urine RBC 0 Urine WBC 0 Ur Squamous Epith Cells 1+ Urine Bacteria NONE Urine Mucus 3+ COVID-19 (MANISHA) COVID-19 Clin Com Influenza Type A (VANDANA) Influenza Type B (VANDANA) Influenza A & B Note Imaging Radiologist's Impressions: Impressions Chest X-Ray 12/02/21 06:45 IMPRESSION: Hazy densities laterally in the right mid lung and in the left lower lung which are indeterminate and could reflect subsegmental atelectasis or scarring. Developing infiltrate cannot be ruled out. Underlying mild to moderate upper lobe emphysema. Question of a small left-sided pleural effusion; correlate with findings on auscultation. Assessment and Plan (1) Hypoxia: Status: Acute (2) Pneumonia due to COVID-19 virus: Status: Acute (3) Intractable nausea and vomiting: Status: Acute Plan 71-year-old male with a past medical history of hypertension, hyperlipidemia, diabetes, myasthenia gravis, chronic diarrhea presented to the hospital with a chief complaint of shortness of breath/generalized weakness.? Patient was COVID-19 tested positive on 11/26.? Symptoms have been gradually worsening. # COVID-19 pneumonia/ hypoxia: - Patient initially tested positive for COVID-19 on 11/26/2021. - Patient saturating 90% on room air and dropping to the 80s with minimal exertion - continue IV antibiotics, continue Decadron - ID consult for further recommendations - Patient is COVID-19 vaccinated - received 2 Pfizer vaccines.? Did not get the booster shot. # intractable nausea vomiting - Zofran - supportive measures - IV fluid # Mild transaminitis:? -The setting of COVID-19 infection.? - stable from recent admission # History of hypertension:? - continue home medications # History of diabetes:? Insulin sliding scale # History of chronic diarrhea: Patient on loperamide # History of myasthenia gravis:? Patient on azathioprine, mycophenolate, pyridostigmine -> will continue.? Hold prednisone for now.? As patient is on Decadron dvt ppx: Heparin subQ Given significant intractable nausea and vomiting, hypoxia, and continuous COVID infection symptoms patient will do poorly outpatient and therefore will be admitted for further management and monitor Quality Stroke Does the patient have a stroke diagnosis?: No VTE Prior VTE?: No VTE Risk Level:: Medical - moderate - high VTE Device Contraindication: Treatment Not Indicated VTE Drug Contraindication: N/A - Med Ordered
[2021-12-02 21:38] LABS: Glucose, Whole Blood 103 mg/dL (60-115)
--- NOTE | 2021-12-02 21:40 | HE.PHANOTE ---
Vanco 2 gm load given followed by 1750mg q24. Random level to be drawn on 12/04/21. Predicted AUC 472, trough 10.1 after the first 48 hours
[2021-12-02] MEDS: Piperacillin Sodium/Tazobactam 3.375 GM in 0.9 % Sodium Chloride 50 ML IV (21:50)
[2021-12-02] MEDS: Loperamide HCl 2 MG CAPSULE PO (21:52)
[2021-12-02] MEDS: Gabapentin 300 MG CAPSULE PO (21:52)
[2021-12-02] MEDS: QUEtiapine Fumarate 25 MG TABLET PO (21:52)
[2021-12-02] MEDS: Heparin Sodium,Porcine 5,000 UNIT/ML VIAL 5000 UNIT SUBCUT (21:52)
[2021-12-02] MEDS: Acetaminophen 325 MG TABLET 650 MG PO (21:52)
--- NOTE | 2021-12-02 21:56 | PC.NURSE ---
medicated per provider order with medication available in the pyxis, pharmacy contacted about remaining.
[2021-12-02] MEDS: azaTHIOprine 50 MG TABLET PO (22:25)
[2021-12-02] MEDS: Valsartan 80 MG TABLET PO (22:33)
--- NOTE | 2021-12-02 22:56 | PC.NURSE ---
RN-RN report given, pt transferring to ED overflow.
[2021-12-03] MEDS: Piperacillin Sodium/Tazobactam 3.375 GM in 0.9 % Sodium Chloride 50 ML IV ×4 (03:23→20:39)
--- NOTE | 2021-12-03 04:12 | PC.NURSE ---
RN assumed care of patient at time of transfer to Overflow Bed 4. Patient somnolent and slept through medication administration. Patient was incontinent of urine in room, was cleaned up and patient returned to sleep. Medicated per SEP, currently sleeping at this time, will continue to monitor.
[2021-12-03 05:34] VITALS: BP 181/90; PULSE 98; RESP 22; O2SAT 91
[2021-12-03 07:24] LABS: Glucose, Whole Blood 87 mg/dL (60-115)
[2021-12-03 07:31] LABS: MANUAL DIFF FLAG NO
[2021-12-03 07:33] LABS: Eosinophils Percent Auto 0.7 % (0-4); Hematocrit 34.9 % (42.0-52.0); Hemoglobin 11.1 g/dl (14.0-18.0); Imm Gran Abs Auto 0.03 X10*3/uL (0.00-0.03); Imm Gran Pct Auto 0.5 % (0.0-0.4); Lymphocytes Absolute Auto 0.5 X10*3/uL (1.2-4.9); Lymphocytes Percent Auto 8.4 % (20-40); Mean Corpuscular HGB Conc 31.8 g/dl (31.0-36.0); Mean Corpuscular Hemoglobin 26.6 pg (27.0-33.0); Mean Corpuscular Volume 83.7 fL (80.0-98.0); Mean Platelet Volume 9.1 fL (9.4-12.4); Monocytes Absolute Auto 0.2 X10*3/uL (0.1-1.2); Monocytes Percent Auto 2.6 % (2-11); Neutrophils Percent Auto 87.8 % (45-73); Platelet Count 179 X10*3/uL (160-400); Red Blood Count 4.17 X10*6/uL (4.60-5.80); White Blood Count 5.7 X10*3/uL (4.8-10.8)
[2021-12-03 07:49] VITALS: BP 161/66; PULSE 104; RESP 23; TEMP 37; O2SAT 96
[2021-12-03 08:02] LABS: Anion Gap 14 (12-20); Blood Urea Nitrogen 9 mg/dL (9-16); Calcium 7.9 mg/dL (8.4-10.2); Carbon Dioxide 22 mmol/L (22-29); Chloride 108 mmol/L (96-108); Creatinine Clr Calc Pharmacy 74.4; Estimated Glomerular Filt Rate > 60; Glucose Random 97 mg/dL (60-115); Sodium 140 mmol/L (135-145)
--- NOTE | 2021-12-03 08:56 | MHC.CM.PN ---
Patient is Covid (+);CM spoke with /HCP/Sheryl @ [phone] and addressed IMM with her, mailing the original to her certified mail and placing a copy on the chart. Patient lives in a house with his , Daughter, Son-in-Law, and 14 year old Grandchild and he uses a walker to assist with mobility. Patient was active with [facility] in the recent past and he receives a [employer] 22 hours/week and a [employer] 2 hours/week. Home/resume said services is the goal and CM has initiated and will follow for dc planning. PCP is DR. Justino Lara and Patient has receives [employer].
[2021-12-03] MEDS: Lactated Ringers 1,000 ML 50 ML IVCONT (09:09)
[2021-12-03] MEDS: Atorvastatin Calcium 80 MG TABLET PO (09:10)
[2021-12-03] MEDS: dexAMETHasone sod phosphate 4 MG/ML VIAL 6 MG IVPUSH (09:10)
[2021-12-03] MEDS: Clotrimazole 1 % Cream 15 GM TUBE 1 APPL TOPICAL ×2 (09:10→20:38)
[2021-12-03] MEDS: Gabapentin 300 MG CAPSULE PO ×2 (09:10→20:35)
[2021-12-03] MEDS: amLODIPine Besylate 10 MG TABLET PO (09:10)
[2021-12-03] MEDS: Loperamide HCl 2 MG CAPSULE PO ×2 (09:10→20:35)
[2021-12-03] MEDS: mycophenolate mofetiL 250 MG CAPSULE 500 MG PO ×2 (09:10→21:43)
[2021-12-03] MEDS: azaTHIOprine 50 MG TABLET PO ×3 (09:10→21:43)
[2021-12-03] MEDS: Heparin Sodium,Porcine 5,000 UNIT/ML VIAL 5000 UNIT SUBCUT ×2 (09:10→20:34)
[2021-12-03] MEDS: Valsartan 80 MG TABLET PO (09:10)
--- NOTE | 2021-12-03 09:24 | P.PNIM_ITS ---
Subjective Subjective Date of Service: 12/03/21 Interval History: aspiration pneumonia/covid Review of Systems sob seems similar yesterday but hypoxia seems to be improving Physical Exam 2 Vital Signs: Vital Signs: Last Vital Signs Temp 98.6 F 12/03/21 07:49 Pulse 104 H 12/03/21 07:49 Resp 23 H 12/03/21 07:49 BP 161/66 H 12/03/21 07:49 Pulse Ox 96 12/03/21 07:49 BMI result Body Mass Index 37.5 Appearance: Alert.? Oriented X3, somewhat off, not in distress. cvs: rrr, [id number] , no murmur res: clear to auscultation ,no rhonchii or wheezing abd: no rebound or guarding ,nt, bs present. ext pulses present , no cyanosis ,Gait well balanced well coordinated. neuro: axo3 , nonfocal. Objective Data Active Medications Acetaminophen (Acetaminophen 325 Mg Tablet) 650 mg PO Q6H PRN PRN Reason: Pain, Mild (Pain Scale 1-3) Last Admin: 12/02/21 21:52 Dose: 650 mg Documented by: JUAN M Amlodipine Besylate (Amlodipine Besylate 10 Mg Tablet) 10 mg PO DAILY [facility]; Protocol Last Admin: 12/03/21 09:10 Dose: 10 mg Documented by: DON Atorvastatin Calcium (Atorvastatin Calcium 80 Mg Tablet) 80 mg PO DAILY [facility] Last Admin: 12/03/21 09:10 Dose: 80 mg Documented by: DON Azathioprine (Azathioprine 50 Mg Tablet) 50 mg PO TID [facility] Last Admin: 12/03/21 09:10 Dose: 50 mg Documented by: DON Clotrimazole (Clotrimazole 1 % Cream 15 Gm Tube) 1 appl TOPICAL BID [facility]; Protocol Last Admin: 12/03/21 09:10 Dose: 1 appl Documented by: DON Dexamethasone Sodium Phosphate (Dexamethasone Sod Phosphate 4 Mg/Ml Vial) 6 mg IVPUSH DAILY [facility] Last Admin: 12/03/21 09:10 Dose: 6 mg Documented by: DON Dextrose (Dextrose 50 % 25 Gm/50 Ml Syringe) 25 gm IVPUSH Q15M PRN; Protocol PRN Reason: per Hypoglycemia Standing Ord. Docusate Sodium (Docusate Sodium 100 Mg Capsule) 100 mg PO DAILY PRN PRN Reason: Constipation Gabapentin (Gabapentin 300 Mg Capsule) 300 mg PO BID [facility] Last Admin: 12/03/21 09:10 Dose: 300 mg Documented by: DON Glucose (Glucose Gel 15 Gm Gel..Gram.) 15 gm PO Q15M PRN; Protocol PRN Reason: per Hypoglycemia Standing Ord. Heparin Sodium (Porcine) (Heparin Sodium,Porcine 5,000 Unit/Ml Vial) 5,000 unit SUBCUT Q12H [facility] Last Admin: 12/03/21 09:10 Dose: 5,000 unit Documented by: DON Piperacillin Sod/Tazobactam (Sod 3.375 gm/ Sodium Chloride) 50 mls @ 100 mls/hr IV Q6H [facility] Last Admin: 12/03/21 09:09 Dose: 100 mls/hr Documented by: DON Lactated Ringer's (Lr) 1,000 mls @ 50 mls/hr IVCONT .Q20H [facility] Last Admin: 12/03/21 09:09 Dose: 50 mls/hr Documented by: DON Insulin Human Lispro (Insulin Lispro 100 Unit/Ml 3 Ml Vial) 0 unit SUBCUT QIDACHS [facility]; Protocol Last Admin: 12/03/21 09:09 Dose: Not Given Documented by: DON Non-Admin Reason: No Insulin Coverage Loperamide HCl (Loperamide Hcl 2 Mg Capsule) 2 mg PO BID [facility] Last Admin: 12/03/21 09:10 Dose: 2 mg Documented by: DON Mycophenolate Mofetil (Mycophenolate Mofetil 250 Mg Capsule) 500 mg PO BID [facility] Last Admin: 12/03/21 09:10 Dose: 500 mg Documented by: DON Ondansetron HCl (Ondansetron Hcl 4 Mg/2 Ml Vial) 4 mg IVPUSH Q8H PRN PRN Reason: Nausea and Vomiting Pharmacy Consult (Consult Rx Perform Med Rec) 1 each MISCELLANE ONCE PRN PRN Reason: Consult order Pharmacy Consult (Consult Rx Vancomycin Dosing) 1 each MISCELLANE DAILY PRN PRN Reason: Consult order Pyridostigmine [place] (Pyridostigmine [place] 60 Mg Tablet) 60 mg PO QID [facility] Last Admin: 12/03/21 09:10 Dose: 60 mg Documented by: DON Quetiapine Fumarate (Quetiapine Fumarate 25 Mg Tablet) 25 mg PO BEDTIME [facility] Last Admin: 12/02/21 21:52 Dose: 25 mg Documented by: MARCIADENNiranjan Sodium Chloride (0.9 % Sodium Chloride Flush 3 Ml Syringe) 3 ml IVFLUSH QSHIFT [facility] Last Admin: 12/03/21 09:10 Dose: Not Given Documented by: DON Non-Admin Reason: IV Running Valsartan (Valsartan 80 Mg Tablet) 80 mg PO DAILY [facility]; Protocol Last Admin: 12/03/21 09:10 Dose: 80 mg Documented by: DON Labs CBC & Chem 7: 12/03/21 07:18 12/03/21 07:18 Labs: Laboratory Results - last 24 hr 12/02/21 12/02/21 12/03/21 10:12 21:35 07:18 MCV 83.7 MCH 26.6 L MCHC 31.8 RDW 19.0 H Plt Count 179 MPV 9.1 L Immature Gran % (Auto) 0.5 H Neut % (Auto) 87.8 H Lymph % (Auto) 8.4 L [place] % (Auto) 2.6 Eos % (Auto) 0.7 Baso % (Auto) 0.0 Lymph # (Auto) 0.5 L [place] # (Auto) 0.2 Eos # (Auto) 0.0 Baso # (Auto) 0.0 Abs Immat Gran (auto) 0.03 Absolute Neuts (auto) 5.0 Absolute Nucleated RBC 0.000 Nucleated RBC % (auto) 0.0 Anion Gap Estim Creat Clear Calc Estimated GFR POC Glucose 103 Random Glucose Calcium Urine Color DK YELLOW Urine Appearance HAZY Urine pH 6.0 Ur Specific [place] >= 1.030 H Urine Protein 2+ H Urine Glucose (UA) NEG Urine Ketones 5 Urine Blood NEG Urine Nitrite NEG Ur Leukocyte Esterase NEG Urine RBC 0 Urine WBC 0 Ur Squamous Epith Cells 1+ Urine Bacteria NONE Urine Mucus 3+ 12/03/21 12/03/21 07:18 07:20 MCV MCH MCHC RDW Plt Count MPV Immature Gran % (Auto) Neut % (Auto) Lymph % (Auto) [place] % (Auto) Eos % (Auto) Baso % (Auto) Lymph # (Auto) [place] # (Auto) Eos # (Auto) Baso # (Auto) Abs Immat Gran (auto) Absolute Neuts (auto) Absolute Nucleated RBC Nucleated RBC % (auto) Anion Gap 14 Estim Creat Clear Calc 74.4 Estimated GFR > 60 POC Glucose 87 Random Glucose 97 Calcium 7.9 L D Urine Color Urine Appearance Urine pH Ur Specific [place] Urine Protein Urine Glucose (UA) Urine Ketones Urine Blood Urine Nitrite Ur Leukocyte Esterase Urine RBC Urine WBC Ur Squamous Epith Cells Urine Bacteria Urine Mucus Microbiology Microbiology Results: Microbiology 12/02/21 06:24 Blood Culture - Preliminary Blood - Venous No growth after 24 hours. 12/02/21 06:23 Blood Culture - Preliminary Blood - Venous No growth after 24 hours. Assessment and Plan (1) Aspiration pneumonia: Status: Acute (2) Pneumonia due to COVID-19 virus: Status: Acute Plan 71-year-old male with a past medical history of hypertension, hyperlipidemia, diabetes, myasthenia gravis, chronic diarrhea presented to the hospital with a chief complaint of shortness of breath/generalized weakness.? Patient was COVID- 19 tested positive on 11/26.? Symptoms have been gradually worsening. # COVID-19 pneumonia/ hypoxia: - Patient initially tested positive for COVID-19 on 11/26/2021. - Patient saturating 90% on room air and dropping to the 80s with minimal exertion - continue IV antibiotics, continue Decadron - ID consult for further recommendations - Patient is COVID-19 vaccinated - received 2 Pfizer vaccines.? Did not get the booster shot. swallow eval # intractable nausea vomiting - Zofran - supportive measures - IV fluid # Mild transaminitis:? -The setting of COVID-19 infection.? - stable from recent admission # History of hypertension:? - continue home medications # History of diabetes:? Insulin sliding scale # History of chronic diarrhea: Patient on loperamide # History of myasthenia gravis:? Patient on azathioprine, mycophenolate, pyridostigmine -> will continue.? Hold prednisone for now.? As patient is on Decadron dvt ppx:? Heparin subQ Given significant intractable nausea and vomiting, aspiritional pneumonia, COVID infection Quality Stroke Does the patient have a stroke diagnosis?: No VTE Prior VTE?: No VTE Risk Level:: Medical - moderate - high VTE Device Contraindication: Treatment Not Indicated VTE Drug Contraindication: N/A - Med Ordered
--- NOTE | 2021-12-03 10:22 | PC.NURSE ---
Pt A&Ox4, lungs diminished throughout, dry, persistant, non productive cough present. Pt denies any pain at this time, 92% on room air, placed back on O2, sat 97% on O2, IV fluids running as per MAR orders, call pastor within reach. Will continue to monitor.
--- NOTE | 2021-12-03 11:06 | PHA.PROG ---
Admission Date/Time: December 02, 2021 20:44 Indication: COVID PNA Weight in k.862 kg Adjusted body weight in K.2 kg [place] body weight in K.1 kg Obesity Dosing Indication % IBW:164% Serum Creatinine - Last 168 Hours 12/02/21 12/03/21 06:23 07:18 Creatinine 0.83 1.04 Estimated CrCl and GFR - Last 168 Hours 12/02/21 12/03/21 06:23 07:18 Estim Creat Clear Calc 93.2 74.4 Estimated GFR > 60 > 60 Vancomycin Loading Dose: 2000 mg (18.5 mg/kg)) Current Vancomycin Dosing Regimen: 1750 mgQ24H Date and Time for next Vancomycin Level to be drawn: 12/04/21 @ 2100 Pharmacist Comments on Vancomycin Plan: Weight was confirmed with RN Rochelle today. Patient require obesity dosing as IBW > 130 % Patient SCr has increased slighly from yesterday. Will decrease dose to 1500 mg Q24H start 12/03 @ 2300. Expected AUC 533 with a trough of 13.1 Random level will be drawn prior to 2nd dose to evaluate for safety especially since patient is obese Pharmacy will monitor renal function daily. Shirley Esposito, Umm Vancomycin dosing will take advantage of [employer] as a clinical decision support tool that uses Bayesian modeling to calculate individual patient's pharmacokinetic parameters and forecast the patient's drug concentration time course with the target goal AUC 24 range of 400 - 600 mg/L/hr.
[2021-12-03 11:25] VITALS: BP 182/72; PULSE 92; RESP 21; TEMP 37; O2SAT 95
[2021-12-03 12:48] LABS: Glucose, Whole Blood 156 mg/dL (60-115)
--- NOTE | 2021-12-03 13:10 | W.PM.IDCN ---
History of Present Illness Data of Consult Service Date: 12/03/21 Requesting physician: Jose Gómez Primary Care Provider: Justino Lara MD HPI Reason for consult: infiltrates lung,hypoxia He presents to hospital with shortness of breath and oxygen saturation to 90s. I had seen him in hospital before. He has had COVID on 11/26 and was discharged after stay. He comes in with vomiting Review of Systems Review of Systems: Yes all other systems are reviewed and are negative [facility] Past Medical History Medical History (Updated 12/03/21 @ 13:15 by Diana Montanez MD) Aspiration pneumonia Diabetes mellitus, type 2 Erythema of lower extremity Hypercholesteremia Hypertension Myasthenia gravis Myocardial infarction Obesity TBI (traumatic brain injury) Family History Family History Other No family history of coronary artery disease Family history: reviewed and not pertinent Social History Social History Household Members: Spouse Housing: House Do you presently have visiting nurse or other home services: Yes Unable to assess alcohol history related to: Unknown Alcohol intake: never Patient Tobacco Use Status: Never used Tobacco Use of substances other than those prescribed or required for medical reasons: No Advance Directives: Yes Advance Directives on File: Yes Advance Directives Date on File: 05/05/21 service: No Current occupational status: retired Meds Allergies Allergy/AdvReac Type Severity Reaction Status Date / Time No Known Allergies Allergy Verified 09/02/21 14:18 [No Known Allergies*] Active Medications: Current Medications Acetaminophen (Acetaminophen 325 Mg Tablet) 650 mg PO Q6H PRN PRN Reason: Pain, Mild (Pain Scale 1-3) Last Admin: 12/02/21 21:52 Dose: 650 mg Documented by: Amlodipine Besylate (Amlodipine Besylate 10 Mg Tablet) 10 mg PO DAILY [facility]; Protocol Last Admin: 12/03/21 09:10 Dose: 10 mg Documented by: Atorvastatin Calcium (Atorvastatin Calcium 80 Mg Tablet) 80 mg PO DAILY [facility] Last Admin: 12/03/21 09:10 Dose: 80 mg Documented by: Azathioprine (Azathioprine 50 Mg Tablet) 50 mg PO TID [facility] Last Admin: 12/03/21 09:10 Dose: 50 mg Documented by: Clotrimazole (Clotrimazole 1 % Cream 15 Gm Tube) 1 appl TOPICAL BID [facility]; Protocol Last Admin: 12/03/21 09:10 Dose: 1 appl Documented by: Dexamethasone Sodium Phosphate (Dexamethasone Sod Phosphate 4 Mg/Ml Vial) 6 mg IVPUSH DAILY [facility] Last Admin: 12/03/21 09:10 Dose: 6 mg Documented by: Dextrose (Dextrose 50 % 25 Gm/50 Ml Syringe) 25 gm IVPUSH Q15M PRN; Protocol PRN Reason: per Hypoglycemia Standing Ord. Docusate Sodium (Docusate Sodium 100 Mg Capsule) 100 mg PO DAILY PRN PRN Reason: Constipation Gabapentin (Gabapentin 300 Mg Capsule) 300 mg PO BID [facility] Last Admin: 12/03/21 09:10 Dose: 300 mg Documented by: Glucose (Glucose Gel 15 Gm Gel..Gram.) 15 gm PO Q15M PRN; Protocol PRN Reason: per Hypoglycemia Standing Ord. Heparin Sodium (Porcine) (Heparin Sodium,Porcine 5,000 Unit/Ml Vial) 5,000 unit SUBCUT Q12H [facility] Last Admin: 12/03/21 09:10 Dose: 5,000 unit Documented by: Piperacillin Sod/Tazobactam (Sod 3.375 gm/ Sodium Chloride) 50 mls @ 100 mls/hr IV Q6H [facility] Last Admin: 12/03/21 09:09 Dose: 100 mls/hr Documented by: Lactated Ringer's (Lr) 1,000 mls @ 50 mls/hr IVCONT .Q20H [facility] Last Admin: 12/03/21 09:09 Dose: 50 mls/hr Documented by: Vancomycin HCl 1,500 mg/ (Sodium Chloride) 500 mls @ 333.333 mls/hr IV Q24H [facility] Insulin Human Lispro (Insulin Lispro 100 Unit/Ml 3 Ml Vial) 0 unit SUBCUT QIDACHS [facility]; Protocol Last Admin: 12/03/21 09:09 Dose: Not Given Documented by: Loperamide HCl (Loperamide Hcl 2 Mg Capsule) 2 mg PO BID [facility] Last Admin: 12/03/21 09:10 Dose: 2 mg Documented by: Mycophenolate Mofetil (Mycophenolate Mofetil 250 Mg Capsule) 500 mg PO BID [facility] Last Admin: 12/03/21 09:10 Dose: 500 mg Documented by: Ondansetron HCl (Ondansetron Hcl 4 Mg/2 Ml Vial) 4 mg IVPUSH Q8H PRN PRN Reason: Nausea and Vomiting Pharmacy Consult (Consult Rx Perform Med Rec) 1 each MISCELLANE ONCE PRN PRN Reason: Consult order Pharmacy Consult (Consult Rx Vancomycin Dosing) 1 each MISCELLANE DAILY PRN PRN Reason: Consult order Pyridostigmine [place] (Pyridostigmine [place] 60 Mg Tablet) 60 mg PO QID [facility] Last Admin: 12/03/21 09:10 Dose: 60 mg Documented by: Quetiapine Fumarate (Quetiapine Fumarate 25 Mg Tablet) 25 mg PO BEDTIME [facility] Last Admin: 12/02/21 21:52 Dose: 25 mg Documented by: Sodium Chloride (0.9 % Sodium Chloride Flush 3 Ml Syringe) 3 ml IVFLUSH QSHIFT [facility] Last Admin: 12/03/21 09:10 Dose: Not Given Documented by: Valsartan (Valsartan 80 Mg Tablet) 80 mg PO DAILY [facility]; Protocol Last Admin: 12/03/21 09:10 Dose: 80 mg Documented by: Home Medications Medication Instructions Recorded Confirmed Last Taken Type amlodipine 10 mg tablet 10 mg PO DAILY 06/02/20 12/02/21 08/24/21 History azathioprine 50 mg tablet 50 mg PO TID 06/02/20 12/02/21 08/24/21 History pyridostigmine bromide 60 mg tablet 1 tab PO QID 06/02/20 12/02/21 08/24/21 History quetiapine 25 mg tablet 1 tab PO BEDTIME 06/02/20 12/02/21 08/24/21 History valsartan 80 mg tablet 1 tab PO DAILY 06/02/20 12/02/21 08/24/21 History blood sugar diagnostic (FreeStyle #10 ea 03/05/21 05/02/21 Unknown History Lite Strips) lancets 28 gauge (FreeStyle #100 ea 03/05/21 05/02/21 Unknown History Lancets) clotrimazole 1 % topical cream 1 appl TOPICAL BID 08/24/21 12/02/21 08/24/21 History gabapentin 300 mg capsule 1 cap PO BID 08/24/21 12/02/21 08/24/21 History loperamide 2 mg capsule 1 tab PO BID 08/24/21 12/02/21 08/24/21 History mycophenolate mofetil 500 mg tablet 1 tab PO BID 08/24/21 12/02/21 08/24/21 History metformin 500 mg tablet 1,000 mg PO BID 09/02/21 12/02/21 Unknown History glipizide 5 mg tablet 5 mg PO BID 11/30/21 12/02/21 Unknown History prednisone 10 mg tablet 25 mg PO DAILY 11/30/21 12/02/21 Unknown History Physical Exam Vital Signs: Vital Signs: Last Vital Signs Temp 98.6 F 12/03/21 11:25 Pulse 92 12/03/21 11:25 Resp 21 H 12/03/21 11:25 BP 182/72 H 12/03/21 11:25 Pulse Ox 95 12/03/21 11:25 BMI result Body Mass Index 37.5 Const: General: cooperative Eyes: General: appearance normal, both eyes and all related structures Resp: Effort & Inspection: normal respiratory effort and Actively coughing Cardio: Rate: regular rate Rhythm: regular rhythm GI: Palpation (GI): Soft to palpation and nontender Skin: General skin exam: no rashes or lesions noted Results Labs CBC & Chem 7: 12/03/21 07:18 12/03/21 07:18 Labs: Short CBC 12/03/21 Range/Units 07:18 WBC 5.7 (4.8-10.8) X10*3/uL Hgb 11.1 L (14.0-18.0) g/dl Hct 34.9 L (42.0-52.0) % Plt Count 179 (160-400) X10*3/uL BMP 12/03/21 07:18 Sodium 140 Potassium 4.0 Chloride 108 Carbon Dioxide 22 BUN 9 Creatinine 1.04 Calcium 7.9 L D Microbiology Microbiology Results: Microbiology 12/02/21 06:24 Blood - Venous Blood Culture - Preliminary No growth after 24 hours. 12/02/21 06:23 Blood - Venous Blood Culture - Preliminary No growth after 24 hours. Assessment and Plan (1) Aspiration pneumonia: Status: Acute likely he had COVID and was in hospital and also vomiting so concern over post COVID aspiration pneumonia; Gram negative and MRSA possible Do not think still has active COVID (2) Intractable nausea and vomiting: Status: Acute (3) Pneumonia due to COVID-19 virus: Status: Acute (4) Myasthenia gravis: Status: Acute Plan Would continue Vancomycin and Zosyn likely five day total IV Would check nares MRSA and stop Vancomycin if negative.
--- NOTE | 2021-12-03 14:08 | PM.EVENT ---
Event Note Date of Service: 12/03/21 Event Note: can give Dexamethasone total 10 days
[2021-12-03] MEDS: Insulin Lispro 100 UNIT/ML 3 ML VIAL SUBCUT ×3 (14:31→21:30)
[2021-12-03 16:14] VITALS: BP 135/67; PULSE 88; RESP 24; O2SAT 97
[2021-12-03 16:53] LABS: Glucose, Whole Blood 311 mg/dL (60-115)
[2021-12-03 20:33] LABS: Glucose, Whole Blood 245 mg/dL (60-115)
[2021-12-03] MEDS: QUEtiapine Fumarate 25 MG TABLET PO (20:35)
[2021-12-04] MEDS: vancomycin HCL 1,500 MG in 0.9 % Sodium Chloride 500 ML 333.33 MG IV (00:05)
[2021-12-04] MEDS: Lactated Ringers 1,000 ML 50 ML IVCONT (02:21)
[2021-12-04] MEDS: Piperacillin Sodium/Tazobactam 3.375 GM in 0.9 % Sodium Chloride 50 ML IV ×4 (02:21→20:18)
[2021-12-04 06:00] VITALS: BP 151/72; PULSE 77; RESP 20; O2SAT 96
[2021-12-04 07:37] LABS: Glucose, Whole Blood 178 mg/dL (60-115)
[2021-12-04 08:00] VITALS: BP 161/61; PULSE 68; RESP 20; O2SAT 94
[2021-12-04] MEDS: Valsartan 80 MG TABLET PO (08:12)
[2021-12-04] MEDS: Heparin Sodium,Porcine 5,000 UNIT/ML VIAL 5000 UNIT SUBCUT ×2 (08:12→20:17)
[2021-12-04] MEDS: Atorvastatin Calcium 80 MG TABLET PO (08:12)
[2021-12-04] MEDS: amLODIPine Besylate 10 MG TABLET PO (08:12)
[2021-12-04] MEDS: Loperamide HCl 2 MG CAPSULE PO ×2 (08:13→20:16)
[2021-12-04] MEDS: Gabapentin 300 MG CAPSULE PO ×2 (08:13→20:16)
[2021-12-04] MEDS: Insulin Lispro 100 UNIT/ML 3 ML VIAL SUBCUT ×5 (08:14→20:19)
[2021-12-04] MEDS: 0.9 % Sodium Chloride Flush 3 ML SYRINGE IVFLUSH (08:14)
--- NOTE | 2021-12-04 08:57 | P.PNIM_ITS ---
Subjective Subjective Date of Service: 12/04/21 Interval History: encephalopathy, aspiration pneumonia; Review of Systems Shortness of breath is slightly better than before, has cough, denies any chest pain or nausea vomiting or abdominal pain. Physical Exam Vital Signs: Vital Signs: Last Vital Signs Temp 98.6 F 12/03/21 11:25 Pulse 68 12/04/21 08:00 Resp 20 12/04/21 08:00 BP 161/61 H 12/04/21 08:00 Pulse Ox 94 12/04/21 08:00 BMI result Body Mass Index 37.5 Appearance: Alert.? Oriented X3, somewhat off, not in distress. cvs: rrr, [id number] , no murmur res: air entry diminshed at bases ,few rhonchii abd: no rebound or guarding ,nt, bs present. ext pulses present , no cyanosis. neuro: axo3 , nonfocal. Objective Data Active Medications Acetaminophen (Acetaminophen 325 Mg Tablet) 650 mg PO Q6H PRN PRN Reason: Pain, Mild (Pain Scale 1-3) Last Admin: 12/02/21 21:52 Dose: 650 mg Documented by: JUAN M Amlodipine Besylate (Amlodipine Besylate 10 Mg Tablet) 10 mg PO DAILY [facility]; Pro tocol Last Admin: 12/04/21 08:12 Dose: 10 mg Documented by: TOMAS Atorvastatin Calcium (Atorvastatin Calcium 80 Mg Tablet) 80 mg PO DAILY [facility] Last Admin: 12/04/21 08:12 Dose: 80 mg Documented by: TOMAS Azathioprine (Azathioprine 50 Mg Tablet) 50 mg PO TID [facility] Last Admin: 12/03/21 21:43 Dose: 50 mg Documented by: DOROTHY Clotrimazole (Clotrimazole 1 % Cream 15 Gm Tube) 1 appl TOPICAL BID [facility]; Protocol Last Admin: 12/03/21 20:38 Dose: 1 appl Documented by: DOROTHY Dexamethasone Sodium Phosphate (Dexamethasone Sod Phosphate 4 Mg/Ml Vial) 6 mg IVPUSH DAILY [facility] Last Admin: 12/03/21 09:10 Dose: 6 mg Documented by: DON Dextrose (Dextrose 50 % 25 Gm/50 Ml Syringe) 25 gm IVPUSH Q15M PRN; Protocol PRN Reason: per Hypoglycemia Standing Ord. Docusate Sodium (Docusate Sodium 100 Mg Capsule) 100 mg PO DAILY PRN PRN Reason: Constipation Gabapentin (Gabapentin 300 Mg Capsule) 300 mg PO BID [facility] Last Admin: 12/04/21 08:13 Dose: 300 mg Documented by: TOMAS Glucose (Glucose Gel 15 Gm Gel..Gram.) 15 gm PO Q15M PRN; Protocol PRN Reason: per Hypoglycemia Standing Ord. Heparin Sodium (Porcine) (Heparin Sodium,Porcine 5,000 Unit/Ml Vial) 5,000 unit SUBCUT Q12H [facility] Last Admin: 12/04/21 08:12 Dose: 5,000 unit Documented by: TOMAS Piperacillin Sod/Tazobactam (Sod 3.375 gm/ Sodium Chloride) 50 mls @ 100 mls/hr IV Q6H [facility] Last Admin: 12/04/21 08:12 Dose: 100 mls/hr Documented by: TOMAS Lactated Ringer's (Lr) 1,000 mls @ 50 mls/hr IVCONT .Q20H [facility] Last Admin: 12/04/21 02:21 Dose: 50 mls/hr Documented by: DOROTHY Vancomycin HCl 1,500 mg/ (Sodium Chloride) 500 mls @ 333.333 mls/hr IV Q24H [facility] Last Infusion: 12/04/21 04:18 Dose: 0 mls/hr Documented by: DOROTHY Insulin Human Lispro (Insulin Lispro 100 Unit/Ml 3 Ml Vial) 0 unit SUBCUT QIDACHS [facility]; Protocol Last Admin: 12/04/21 08:14 Dose: 2 unit Documented by: TOMAS Loperamide HCl (Loperamide Hcl 2 Mg Capsule) 2 mg PO BID [facility] Last Admin: 12/04/21 08:13 Dose: 2 mg Documented by: TOMAS Mycophenolate Mofetil (Mycophenolate Mofetil 250 Mg Capsule) 500 mg PO BID [facility] Last Admin: 12/03/21 21:43 Dose: 500 mg Documented by: DOROTHY Ondansetron HCl (Ondansetron Hcl 4 Mg/2 Ml Vial) 4 mg IVPUSH Q8H PRN PRN Reason: Nausea and Vomiting Pharmacy Consult (Consult Rx Perform Med Rec) 1 each MISCELLANE ONCE PRN PRN Reason: Consult order Pharmacy Consult (Consult Rx Vancomycin Dosing) 1 each MISCELLANE DAILY PRN PRN Reason: Consult order Pyridostigmine [place] (Pyridostigmine [place] 60 Mg Tablet) 60 mg PO QID [facility] Last Admin: 12/04/21 08:12 Dose: 60 mg Documented by: TOMAS Quetiapine Fumarate (Quetiapine Fumarate 25 Mg Tablet) 25 mg PO BEDTIME [facility] Last Admin: 12/03/21 20:35 Dose: 25 mg Documented by: DOROTHY Sodium Chloride (0.9 % Sodium Chloride Flush 3 Ml Syringe) 3 ml IVFLUSH QSHIFT [facility] Last Admin: 12/04/21 08:14 Dose: 3 ml Documented by: TOMAS Valsartan (Valsartan 80 Mg Tablet) 80 mg PO DAILY [facility]; Protocol Last Admin: 12/04/21 08:12 Dose: 80 mg Documented by: TOMAS Labs CBC & Chem 7: 12/03/21 07:18 12/03/21 07:18 Labs: Laboratory Results - last 24 hr 12/03/21 12/03/21 12/03/21 12:44 16:39 20:28 POC Glucose 156 H 311 H 245 H 12/04/21 07:21 POC Glucose 178 H Microbiology Microbiology Results: Microbiology 12/02/21 06:24 Blood Culture - Preliminary Blood - Venous No growth after 48 hours. 12/02/21 06:23 Blood Culture - Preliminary Blood - Venous No growth after 48 hours. Assessment and Plan (1) Aspiration pneumonia: Status: Acute (2) Pneumonia due to COVID-19 virus: Status: Acute Plan 71-year-old male with a past medical history of hypertension, hyperlipidemia, diabetes, myasthenia gravis, chronic diarrhea presented to the hospital with a chief complaint of shortness of breath/generalized weakness.? Patient was COVID- 19 tested positive on 11/26.? Symptoms have been gradually worsening. # COVID-19 pneumonia/ hypoxia: - Patient initially tested positive for COVID-19 on 11/26/2021. still sob - continue IV antibiotics, continue Decadron - ID consult for further recommendations - Patient is COVID-19 vaccinated - received 2 Pfizer vaccines.? Did not get the booster shot. swallow eval # intractable nausea vomiting: improved , off iv f. - Zofran - supportive measures # Mild transaminitis:? -The setting of COVID-19 infection.? - stable from recent admission # History of hypertension:? - continue home medications # History of diabetes:? Insulin sliding scale # History of chronic diarrhea: Patient on loperamide # History of myasthenia gravis:? Patient on azathioprine, mycophenolate, pyridostigmine -> will continue.? Hold prednisone for now.? As patient is on Decadron dvt ppx:? Heparin subQ inpatient need: aspiritional pneumonia,? COVID infection Quality Stroke Does the patient have a stroke diagnosis?: No VTE Prior VTE?: No VTE Risk Level:: Medical - moderate - high VTE Device Contraindication: Treatment Not Indicated VTE Drug Contraindication: N/A - Med Ordered
[2021-12-04] MEDS: azaTHIOprine 50 MG TABLET PO (10:12)
[2021-12-04] MEDS: Clotrimazole 1 % Cream 15 GM TUBE 1 APPL TOPICAL ×2 (10:12→20:50)
[2021-12-04] MEDS: dexAMETHasone sod phosphate 4 MG/ML VIAL 6 MG IVPUSH (10:12)
[2021-12-04] MEDS: mycophenolate mofetiL 250 MG CAPSULE 500 MG PO ×2 (10:12→21:29)
--- NOTE | 2021-12-04 10:48 | PC.NURSE ---
Pt moved from the hospital bed to chair with ax2. pt got a little dizzy with transition. Pt titrated down to 4L NC. Pt O2 sats stable 95%. Pt stayed in the chair for about an hour and refused to stay in the chair. Pt stating that he was uncomfortable. RN and tech assisted pt back to the hospital bed. Fluids stopped per verbal order of provider. VSS. callbell and belongings within reach.
[2021-12-04 12:05] VITALS: BP 141/71; PULSE 69; RESP 18; TEMP 36.4; O2SAT 96
--- NOTE | 2021-12-04 12:24 | MHC.SL.SWA ---
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 Liquid Consistency and Strategies for Safe Swallow: Liquid Intake Recommendation: Thin Liquid Intake Strategies: Unrestricted Solid Food Consistency: Dietary Recommendations: Regular Additional Modifications to Solid Foods: Oral Medication Intake: Whole with Liquid Please contact the pharmacy regarding appropriate crushable or liquid drug formulations that are available whenever modified delivery is recommended. Compensatory Strategies and Precautions to be Taken for Safe Swallow: Sitting Upright (90 deg) Small Bites and Sips Supervision While Eating and Drinking for Safe Swallow: Intermittent Supervision Foods to Avoid: May have difficulty with difficult to chew solids, due to missing upper molars. Will likely need some assistance at start of meal setting up tray, accessing utensils, due to mild confusion. Swallowing Recommended Treatments: Recommendation for Speech: NA:Typical Evaluation Comment: Pt presents as episodically mildly confused/disoriented, has history of TBI/Anoxia. On assessment today, oral motor function and all phases of swallow were WFL. Pt tolerated thin liquids by self administered cup sip and straw sip with no clinical signs of aspiration, all WFL. Pt tolerated regular food consistencies with all phases of swallow WFL, no clinical signs of aspiration. Recommend Pt continue on current Regular diabetic diet w/ thin liquids with no consistency restrictions. Pt may need some assistance at beginning of meals with set up of tray and orientation to utensils and foods/liquids on tray, due to level of confusion. No additional OCCUPATIONAL HEALTH MANAGER therapy/services needed at this time. Recommendations communicated by secure text to MD, Media Analyst. Frequency/Duration: Date Range for Service Req: Timeline to reassess: Procurement Agent Clinican/Clinical Fellow: No Supervisory Statement: I have reviewed and agree with the student/clinical fellow's documentation: N/A Speech Language Pathologist: Sonal Callahan M.A., [facility]-OCCUPATIONAL HEALTH MANAGER
[2021-12-04 18:04] LABS: Glucose, Whole Blood 255 mg/dL (60-115)
[2021-12-04 18:15] LABS: Glucose, Whole Blood 421 mg/dL (60-115)
[2021-12-04 19:48] VITALS: BP 156/63; PULSE 75; RESP 24; O2SAT 94
[2021-12-04 20:08] LABS: Glucose, Whole Blood 352 mg/dL (60-115)
[2021-12-04] MEDS: QUEtiapine Fumarate 25 MG TABLET PO (20:16)
[2021-12-04] MEDS: glipiZIDE 5 MG TABLET PO (20:16)
--- NOTE | 2021-12-04 21:22 | PC.NURSE ---
pt provided linen change, pt resting quietly in bed, pt provided with water.
[2021-12-04 21:24] LABS: Creatinine Clr Calc Pharmacy 37.5; Estimated Glomerular Filt Rate 32
[2021-12-04 21:32] LABS: Vancomycin Random 16.1 mcg/mL (15-20)
[2021-12-04 21:33] LABS: Glucose, Whole Blood 286 mg/dL (60-115)
--- NOTE | 2021-12-04 22:02 | HE.PHANOTE ---
VANCO DOSING BASED ON INCREASE IN SCR FROM 1.04 TO 2.06 AND TROUGH OF 16.1 DOSE HAS BEEN DECREASED TO 1000MG Q 24. AND NEXT TROUGH AT 12/05 @1900
[2021-12-04] MEDS: vancomycin HCL 1,000 MG in 0.9 % Sodium Chloride 250 ML 270 MG IV (22:44)
[2021-12-05] VITALS (8 sets, daily range): BP systolic 111–158; BP diastolic 60–75; PULSE 66–100; RESP 15–20; TEMP 36.2–36.6; O2SAT 94–95
--- NOTE | 2021-12-05 00:34 | PC.NURSE ---
this RN helped pt to bedside commode, pt had soft stool.
[2021-12-05] MEDS: Piperacillin Sodium/Tazobactam 3.375 GM in 0.9 % Sodium Chloride 50 ML IV ×4 (02:21→21:18)
--- NOTE | 2021-12-05 02:49 | PC.NURSE ---
pt assisted to bedside commode.
[2021-12-05] MEDS: Albuterol Sulfate 90 MCG 8 GM INHALER 1 PUFF INHALE ×3 (05:17→21:43)
--- NOTE | 2021-12-05 05:56 | PC.NURSE ---
pt assisted with urinal.
[2021-12-05 07:13] LABS: Creatinine Clr Calc Pharmacy 41.4; Estimated Glomerular Filt Rate 36
[2021-12-05 07:46] LABS: Glucose, Whole Blood 136 mg/dL (60-115)
[2021-12-05] MEDS: glipiZIDE 5 MG TABLET PO ×2 (08:13→21:19)
[2021-12-05] MEDS: Loperamide HCl 2 MG CAPSULE PO ×2 (08:13→21:19)
[2021-12-05] MEDS: amLODIPine Besylate 10 MG TABLET PO (08:13)
[2021-12-05] MEDS: Valsartan 80 MG TABLET PO (08:13)
[2021-12-05] MEDS: Gabapentin 300 MG CAPSULE PO ×2 (08:13→21:19)
[2021-12-05] MEDS: Atorvastatin Calcium 80 MG TABLET PO (08:13)
[2021-12-05] MEDS: Heparin Sodium,Porcine 5,000 UNIT/ML VIAL 5000 UNIT SUBCUT ×2 (08:14→21:18)
[2021-12-05] MEDS: Clotrimazole 1 % Cream 15 GM TUBE 1 APPL TOPICAL (08:23)
[2021-12-05 08:31] LABS: MRSA Nasal PCR NEGATIVE (Negative); SA Nasal PCR NEGATIVE (Negative)
--- NOTE | 2021-12-05 09:21 | P.PNIM_ITS ---
Subjective Subjective Date of Service: 12/05/21 Interval History: jared,hypoxia, possible mild toxic metabolic encephalopathy Review of Systems still sob, has still agressive cough denies any chest pain or nausea vomiting or abdominal pain Physical Exam Vital Signs: Vital Signs: Last Vital Signs Temp 97.6 F 12/04/21 12:05 Pulse 66 12/05/21 06:38 Resp 15 12/05/21 06:38 BP 148/67 H 12/05/21 06:38 Pulse Ox 94 12/05/21 06:38 BMI result Body Mass Index 37.5 Appearance: Alert.? Oriented X3, somewhat confused on detail questionin, not in distress. cvs: rrr, [id number] , no murmur res: air entry diminshed at bases ,few rhonchii abd: no rebound or guarding ,nt, bs present. ext pulses present , no cyanosis. neuro: axo3 , nonfocal. Objective Data Active Medications Acetaminophen (Acetaminophen 325 Mg Tablet) 650 mg PO Q6H PRN PRN Reason: Pain, Mild (Pain Scale 1-3) Last Admin: 12/02/21 21:52 Dose: 650 mg Documented by: JUAN M Albuterol Sulfate (Albuterol Sulfate 90 Mcg 8 Gm Inhaler) 1 puff INHALE RQ4H [facility] Last Admin: 12/05/21 05:17 Dose: 1 puff Documented by: NAREN Amlodipine Besylate (Amlodipine Besylate 10 Mg Tablet) 10 mg PO DAILY [facility]; Protocol Last Admin: 12/05/21 08:13 Dose: 10 mg Documented by: ARGELIA Atorvastatin Calcium (Atorvastatin Calcium 80 Mg Tablet) 80 mg PO DAILY [facility] Last Admin: 12/05/21 08:13 Dose: 80 mg Documented by: ARGELIA Azathioprine (Azathioprine 50 Mg Tablet) 50 mg PO TID [facility] Last Admin: 12/05/21 08:23 Dose: Not Given Documented by: ARGELIA Non-Admin Reason: NOT AVAILABLE Clotrimazole (Clotrimazole 1 % Cream 15 Gm Tube) 1 appl TOPICAL BID [facility]; Protocol Last Admin: 12/05/21 08:23 Dose: 1 appl Documented by: ARGELIA Dexamethasone Sodium Phosphate (Dexamethasone Sod Phosphate 4 Mg/Ml Vial) 6 mg IVPUSH DAILY [facility] Last Admin: 12/05/21 08:24 Dose: Not Given Documented by: ARGELIA Non-Admin Reason: NOT AVAILABLE Dextrose (Dextrose 50 % 25 Gm/50 Ml Syringe) 25 gm IVPUSH Q15M PRN; Protocol PRN Reason: per Hypoglycemia Standing Ord. Docusate Sodium (Docusate Sodium 100 Mg Capsule) 100 mg PO DAILY PRN PRN Reason: Constipation Gabapentin (Gabapentin 300 Mg Capsule) 300 mg PO BID [facility] Last Admin: 12/05/21 08:13 Dose: 300 mg Documented by: ARGELIA Glipizide (Glipizide 5 Mg Tablet) 5 mg PO BID [facility] Last Admin: 12/05/21 08:13 Dose: 5 mg Documented by: ARGELIA Glucose (Glucose Gel 15 Gm Gel..Gram.) 15 gm PO Q15M PRN; Protocol PRN Reason: per Hypoglycemia Standing Ord. Heparin Sodium (Porcine) (Heparin Sodium,Porcine 5,000 Unit/Ml Vial) 5,000 unit SUBCUT Q12H [facility] Last Admin: 12/05/21 08:14 Dose: 5,000 unit Documented by: ARGELIA Piperacillin Sod/Tazobactam (Sod 3.375 gm/ Sodium Chloride) 50 mls @ 100 mls/hr IV Q6H [facility] Last Infusion: 12/05/21 08:50 Dose: 0 mls/hr Documented by: ARGELIA Lactated Ringer's (Lr) 1,000 mls @ 80 mls/hr IVCONT .[id number] [facility] Insulin Human Lispro (Insulin Lispro 100 Unit/Ml 3 Ml Vial) 0 unit SUBCUT QIDACHS [facility]; Protocol Last Admin: 12/05/21 08:01 Dose: Not Given Documented by: ARGELIA Non-Admin Reason: No Insulin Coverage Loperamide HCl (Loperamide Hcl 2 Mg Capsule) 2 mg PO BID [facility] Last Admin: 12/05/21 08:13 Dose: 2 mg Documented by: ARGELIA Mycophenolate Mofetil (Mycophenolate Mofetil 250 Mg Capsule) 500 mg PO BID [facility] Last Admin: 12/05/21 08:24 Dose: Not Given Documented by: ARGELIA Non-Admin Reason: NOT AVAILABLE Ondansetron HCl (Ondansetron Hcl 4 Mg/2 Ml Vial) 4 mg IVPUSH Q8H PRN PRN Reason: Nausea and Vomiting Pharmacy Consult (Consult Rx Perform Med Rec) 1 each MISCELLANE ONCE PRN PRN Reason: Consult order Pharmacy Consult (Consult Rx Vancomycin Dosing) 1 each MISCELLANE DAILY PRN PRN Reason: Consult order Pyridostigmine [place] (Pyridostigmine [place] 60 Mg Tablet) 60 mg PO QID [facility] Last Admin: 12/05/21 08:13 Dose: 60 mg Documented by: ARGELIA Quetiapine Fumarate (Quetiapine Fumarate 25 Mg Tablet) 25 mg PO BEDTIME [facility] Last Admin: 12/04/21 20:16 Dose: 25 mg Documented by: AVERY Sodium Chloride (0.9 % Sodium Chloride Flush 3 Ml Syringe) 3 ml IVFLUSH QSHIFT [facility] Last Admin: 12/05/21 08:15 Dose: Not Given Documented by: ARGELIA Non-Admin Reason: IV Running Valsartan (Valsartan 80 Mg Tablet) 80 mg PO DAILY [facility]; Protocol Last Admin: 12/05/21 08:13 Dose: 80 mg Documented by: ARGELIA Labs CBC & Chem 7: 12/03/21 07:18 12/05/21 10:06 Labs: Laboratory Results - last 24 hr 12/04/21 12/04/21 12/04/21 13:20 18:12 18:40 Estim Creat Clear Calc Estimated GFR POC Glucose 255 H 421 H* Nasal Screen MRSA (PCR) NEGATIVE Nasal S. aureus Screen NEGATIVE Nasal MRSA/S.aureus Interp SEE NOTE Random Vancomycin 12/04/21 12/04/21 12/04/21 20:05 21:03 21:03 Estim Creat Clear Calc 37.5 Estimated GFR 32 POC Glucose 352 H* Nasal Screen MRSA (PCR) Nasal S. aureus Screen Nasal MRSA/S.aureus Interp Random Vancomycin 16.1 12/04/21 12/05/21 12/05/21 21:30 06:32 07:40 Estim Creat Clear Calc 41.4 Estimated GFR 36 POC Glucose 286 H 136 H Nasal Screen MRSA (PCR) Nasal S. aureus Screen Nasal MRSA/S.aureus Interp Random Vancomycin Microbiology Microbiology Results: Microbiology 12/02/21 06:24 Blood Culture - Preliminary Blood - Venous No growth after 48 hours. 12/02/21 06:23 Blood Culture - Preliminary Blood - Venous No growth after 48 hours. Assessment and Plan (1) Aspiration pneumonia: Status: Acute (2) Pneumonia due to COVID-19 virus: Status: Acute Plan 71-year-old male with a past medical history of hypertension, hyperlipidemia, diabetes, myasthenia gravis, chronic diarrhea presented to the hospital with a chief complaint of shortness of breath/generalized weakness.? Patient was COVID- 19 tested positive on 11/26.? Symptoms have been gradually worsening. COVID-19 pneumonia/ hypoxia: - Patient initially tested positive for COVID-19 on 11/26/2021. still sob cxr reviewed -possible pneumonia/atelactasis blood culture neg @48hrs - Patient is COVID-19 vaccinated - received 2 Pfizer vaccines.? Did not get the booster shot. swallow eval noted. ID consult for further recommendations- continue IV antibiotics, continue Decadron nasal mrsa neg,stop vanco cotninue zosyn jared seems multifactorial: intractable nausea vomiting, dehydration,poor oral intake,covid ,also had cta (in ed),also might vanco also . gentle hydration encouraged for oral intake and p.o. hydration stop vanco Nephro evaluation Mild transaminitis:? -The setting of COVID-19 infection.? - stable from recent admission History of hypertension:? - continue home medications History of diabetes:? Insulin sliding scale. History of chronic diarrhea: Patient on loperamide. History of myasthenia gravis:? Patient on azathioprine, mycophenolate, pyridostigmine -> will continue.? Hold prednisone for now.? As patient is on Decadron dvt ppx:? Heparin subQ inpatient need: aspiritional pneumonia,? COVID infection,jared Quality Stroke Does the patient have a stroke diagnosis?: No VTE Prior VTE?: No VTE Risk Level:: Medical - moderate - high VTE Device Contraindication: Treatment Not Indicated VTE Drug Contraindication: N/A - Med Ordered
[2021-12-05 10:31] LABS: Ammonia 45 umol/L (13-55)
[2021-12-05 10:41] LABS: Alanine Aminotransferase 42 U/L (0-40); Albumin Level 2.8 g/dL (3.5-5.0); Alkaline Phosphatase 32 U/L (39-117); Anion Gap 17 (12-20); Aspartate Amino Transferase 45 U/L (5-37); Bilirubin Direct 0.2 mg/dL (0.0-0.5); Bilirubin Total 0.4 mg/dL (0.0-1.0); Blood Urea Nitrogen 27 mg/dL (9-16); Carbon Dioxide 16 mmol/L (22-29); Chloride 114 mmol/L (96-108); Creatinine Clr Calc Pharmacy 40.7; Estimated Glomerular Filt Rate 35; Glucose Random 136 mg/dL (60-115); Potassium 4.2 mmol/L (3.3-5.1); Sodium 143 mmol/L (135-145); Total Protein 5.5 g/dL (6.5-8.0)
[2021-12-05] MEDS: Lactated Ringers 1,000 ML 80 ML IVCONT (10:50)
[2021-12-05 11:19] LABS: Procalcitonin 0.11 ng/mL
[2021-12-05] MEDS: dexAMETHasone sod phosphate 4 MG/ML VIAL 6 MG IVPUSH (12:43)
[2021-12-05] MEDS: mycophenolate mofetiL 250 MG CAPSULE 500 MG PO (12:44)
[2021-12-05] MEDS: azaTHIOprine 50 MG TABLET PO (12:44)
[2021-12-05 13:17] LABS: Glucose, Whole Blood 98 mg/dL (60-115)
[2021-12-05] MEDS: Albumin Human 25 % 100 ML IV ×2 (13:17→17:34)
--- NOTE | 2021-12-05 13:45 | MHC.CM.PN ---
PT NOT YET MEDICALLY CLEARED FOR DC. DC PLAN CONTINUES TO BE HOME WITH [employer] AND [facility]
--- NOTE | 2021-12-05 16:29 | PC.NURSE ---
CARE GIVEN TO PATIENT ,PATIENT BOTTOM IS SOAR ,RN AWARE BARRIER CREAM APPLY ,PATIENT POSITION OFF BOTTOM WITH PILLOW .
[2021-12-05 16:40] LABS: Glucose, Whole Blood 166 mg/dL (60-115)
[2021-12-05 17:24] LABS: Appearance Urine CLEAR; Color Urine YELLOW; Glucose Urine UA NEG (NEG); Leukocyte Esterase Urine NEG (NEG); Nitrite Urine NEG (NEG); Specific Gravity - Urine <= 1.005 (1.005-1.025); Urine Blood TRACE (NEG); Urine Ketones NEG (NEG); Urine Protein TRACE MG/DL (NEG-TRACE)
[2021-12-05] MEDS: Insulin Lispro 100 UNIT/ML 3 ML VIAL SUBCUT ×2 (17:33→21:21)
[2021-12-05 17:38] LABS: Bacteria Urine TRACE /LPF; RBC Urine 0-2 /HPF (0); WBC Urine 0 /HPF (0-4)
[2021-12-05 17:58] LABS: Creatinine Urine 42.99 mg/dL; Microalbum/Creatinine Ratio Ur 183.7 ug/mg cr; Protein/Creatinine Ratio, Ur 0.47 (<0.2); Total Protein Urine Random 20 mg/dL (<12)
--- NOTE | 2021-12-05 17:59 | P.CONNP_ITS ---
History of Present Illness Reason for Consult Consult date: 12/05/21 Reason for consult: KIMBER[place] Chief Complaint Chief complaint: Hypoxic resp failure,PNA History of Present Illness Narrative: 71-year-old male with a past medical history of hypertension, hyperlipidemia, diabetes, myasthenia gravis, chronic diarrhea presented to the hospital on 11/29 with a chief complaint of shortness of breath/generalized weakness. Tested positive for COVID-19 on 11/26/2021. He has been having shortness of breath which has been gradually worsening. Complains of generalized weakness and poor intake. In ED, CXR showed multiple opacities; concern for COVID-19 pneumonia. Patient was saturating 90% on room air. Placed on supplemental oxygen. Underwent CTA chest to rule out PE on 11/30 with subsequent increase in S-Cr noted. ROS otherwise negative. Review of Systems Constitutional: Reports as per [facility] Past Medical History Medical History (Updated 12/05/21 @ 17:59 by Alfredo Bell MD) Aspiration pneumonia Diabetes mellitus, type 2 Erythema of lower extremity Hypercholesteremia Hypertension Myasthenia gravis Myocardial infarction Obesity TBI (traumatic brain injury) Family History Family History Other No family history of coronary artery disease Family history: reviewed and not pertinent Social History Social History Household Members: Spouse Housing: House Do you presently have visiting nurse or other home services: Yes Unable to assess alcohol history related to: Unknown Alcohol intake: never Patient Tobacco Use Status: Never used Tobacco Use of substances other than those prescribed or required for medical reasons: No Advance Directives: Yes Advance Directives on File: Yes Advance Directives Date on File: 05/05/21 service: No Current occupational status: retired Meds Allergies Allergy/AdvReac Type Severity Reaction Status Date / Time No Known Allergies Allergy Verified 09/02/21 14:18 [No Known Allergies*] Active Medications: Current Medications Acetaminophen (Acetaminophen 325 Mg Tablet) 650 mg PO Q6H PRN PRN Reason: Pain, Mild (Pain Scale 1-3) Last Admin: 12/02/21 21:52 Dose: 650 mg Documented by: Albuterol Sulfate (Albuterol Sulfate 90 Mcg 8 Gm Inhaler) 1 puff INHALE RQ4H [facility] Last Admin: 12/05/21 14:34 Dose: Not Given Documented by: Amlodipine Besylate (Amlodipine Besylate 10 Mg Tablet) 10 mg PO DAILY [facility]; Protocol Last Admin: 12/05/21 08:13 Dose: 10 mg Documented by: Atorvastatin Calcium (Atorvastatin Calcium 80 Mg Tablet) 80 mg PO DAILY [facility] Last Admin: 12/05/21 08:13 Dose: 80 mg Documented by: Azathioprine (Azathioprine 50 Mg Tablet) 50 mg PO TID [facility] Last Admin: 12/05/21 13:35 Dose: Not Given Documented by: Clotrimazole (Clotrimazole 1 % Cream 15 Gm Tube) 1 appl TOPICAL BID [facility]; Protocol Last Admin: 12/05/21 08:23 Dose: 1 appl Documented by: Dexamethasone Sodium Phosphate (Dexamethasone Sod Phosphate 4 Mg/Ml Vial) 6 mg IVPUSH DAILY [facility] Last Admin: 12/05/21 12:43 Dose: 6 mg Documented by: Dextrose (Dextrose 50 % 25 Gm/50 Ml Syringe) 25 gm IVPUSH Q15M PRN; Protocol PRN Reason: per Hypoglycemia Standing Ord. Docusate Sodium (Docusate Sodium 100 Mg Capsule) 100 mg PO DAILY PRN PRN Reason: Constipation Gabapentin (Gabapentin 300 Mg Capsule) 300 mg PO BID [facility] Last Admin: 12/05/21 08:13 Dose: 300 mg Documented by: Glipizide (Glipizide 5 Mg Tablet) 5 mg PO BID [facility] Last Admin: 12/05/21 08:13 Dose: 5 mg Documented by: Glucose (Glucose Gel 15 Gm Gel..Gram.) 15 gm PO Q15M PRN; Protocol PRN Reason: per Hypoglycemia Standing Ord. Heparin Sodium (Porcine) (Heparin Sodium,Porcine 5,000 Unit/Ml Vial) 5,000 unit SUBCUT Q12H [facility] Last Admin: 12/05/21 08:14 Dose: 5,000 unit Documented by: Piperacillin Sod/Tazobactam (Sod 3.375 gm/ Sodium Chloride) 50 mls @ 100 mls/hr IV Q6H [facility] Last Infusion: 12/05/21 15:07 Dose: Infused Documented by: Lactated Ringer's (Lr) 1,000 mls @ 80 mls/hr IVCONT .[id number] [facility] Last Infusion: 12/05/21 17:49 Dose: 0 mls/hr Documented by: Albumin Human (Kedbumin 25 %) 100 mls @ 100 mls/hr IV Q6H [facility] Stop: 12/06/21 07:44 Last Admin: 12/05/21 17:34 Dose: 100 mls/hr Documented by: Insulin Human Lispro (Insulin Lispro 100 Unit/Ml 3 Ml Vial) 0 unit SUBCUT QIDACHS [facility]; Protocol Last Admin: 12/05/21 17:33 Dose: 2 unit Documented by: Loperamide HCl (Loperamide Hcl 2 Mg Capsule) 2 mg PO BID [facility] Last Admin: 12/05/21 08:13 Dose: 2 mg Documented by: Mycophenolate Mofetil (Mycophenolate Mofetil 250 Mg Capsule) 500 mg PO BID [facility] Last Admin: 12/05/21 12:44 Dose: 500 mg Documented by: Ondansetron HCl (Ondansetron Hcl 4 Mg/2 Ml Vial) 4 mg IVPUSH Q8H PRN PRN Reason: Nausea and Vomiting Pharmacy Consult (Consult Rx Perform Med Rec) 1 each MISCELLANE ONCE PRN PRN Reason: Consult order Pharmacy Consult (Consult Rx Vancomycin Dosing) 1 each MISCELLANE DAILY PRN PRN Reason: Consult order Pyridostigmine [place] (Pyridostigmine [place] 60 Mg Tablet) 60 mg PO QID [facility] Last Admin: 12/05/21 17:33 Dose: 60 mg Documented by: Quetiapine Fumarate (Quetiapine Fumarate 25 Mg Tablet) 25 mg PO BEDTIME [facility] Last Admin: 12/04/21 20:16 Dose: 25 mg Documented by: Sodium Chloride (0.9 % Sodium Chloride Flush 3 Ml Syringe) 3 ml IVFLUSH QSHIFT [facility] Last Admin: 12/05/21 16:22 Dose: Not Given Documented by: Valsartan (Valsartan 80 Mg Tablet) 80 mg PO DAILY [facility]; Protocol Last Admin: 12/05/21 08:13 Dose: 80 mg Documented by: Home Medications Medication Instructions Recorded Confirmed Last Taken Type amlodipine 10 mg tablet 10 mg PO DAILY 06/02/20 12/02/21 08/24/21 History azathioprine 50 mg tablet 50 mg PO TID 06/02/20 12/02/21 08/24/21 History pyridostigmine bromide 60 mg tablet 1 tab PO QID 06/02/20 12/02/21 08/24/21 His tory quetiapine 25 mg tablet 1 tab PO BEDTIME 06/02/20 12/02/21 08/24/21 History valsartan 80 mg tablet 1 tab PO DAILY 06/02/20 12/02/21 08/24/21 History blood sugar diagnostic (FreeStyle #10 ea 03/05/21 05/02/21 Unknown History Lite Strips) lancets 28 gauge (FreeStyle #100 ea 03/05/21 05/02/21 Unknown History Lancets) clotrimazole 1 % topical cream 1 appl TOPICAL BID 08/24/21 12/02/21 08/24/21 History gabapentin 300 mg capsule 1 cap PO BID 08/24/21 12/02/21 08/24/21 History loperamide 2 mg capsule 1 tab PO BID 08/24/21 12/02/21 08/24/21 History mycophenolate mofetil 500 mg tablet 1 tab PO BID 08/24/21 12/02/21 08/24/21 History metformin 500 mg tablet 1,000 mg PO BID 09/02/21 12/02/21 Unknown History glipizide 5 mg tablet 5 mg PO BID 11/30/21 12/02/21 Unknown History prednisone 10 mg tablet 25 mg PO DAILY 11/30/21 12/02/21 Unknown History Physical Exam Vital Signs: Last Vital Signs Temp 97.9 F 12/05/21 16:00 Pulse 74 12/05/21 16:00 Resp 16 12/05/21 16:00 BP 111/74 12/05/21 16:00 Pulse Ox 95 12/05/21 16:00 BMI result Body Mass Index 37.5 Const General: no acute distress HEENT Head: Yes normocephalic Neck Neck: Yes no JVD Resp Auscultation: crackles Cardio Jugular venous distension: no JVD Rate: regular rate Rhythm: regular rhythm GI Auscultation: normal bowel sounds Neuro General: moves all extremities Extrem General: Yes no joint enlargement Results Lab Results Result Diagrams: 12/03/21 07:18 12/05/21 10:06 Lab results: Chemistry 12/03/21 12/04/21 12/05/21 07:18 21:03 06:32 Sodium 140 Potassium 4.0 Carbon Dioxide 22 BUN 9 Creatinine 1.04 2.06 H 1.87 H Calcium 7.9 L D 12/05/21 10:06 Sodium 143 Potassium 4.2 Carbon Dioxide 16 L BUN 27 H D Creatinine 1.90 H Calcium 8.0 L Hematology 12/03/21 07:18 WBC 5.7 Hgb 11.1 L Plt Count 179 Urinalysis 12/05/21 17:10 Urine Color YELLOW Urine Appearance CLEAR Urine pH 6.0 Ur Specific [place] <= 1.005 Urine Protein TRACE Urine Glucose (UA) NEG Urine Ketones NEG Urine Blood TRACE Urine Nitrite NEG Ur Leukocyte Esterase NEG Urine RBC 0-2 Urine WBC 0 Ur Squamous Epith Cells NONE Urine Studies 12/05/21 17:10 Urine Creatinine 42.99 Assessment and Plan (1) Acute kidney injury: Status: Acute Plan #) KIMBERLEY, Non-Oliguric: Normal renal function at BL s/p CTA chest to r/o PE performed on 12/02 with subsequent rise in S-Cr consistent with URIEL. UA reviewed. Relatively bland with noted proteinuria. Some component of volume depletion. Received IVFs Suggest MACR for CKD risk stratification. Hold nsaids, acei/arb, IV contrast, renal dosing abx. Renal panel daily Bladder scan if oliguria/anuria Abdominal US did not reveal hydronephrosis of right kidney. Left kidney not visu alized. If further up-trend of S-Cr can consider limited Left kidney US. Hypernatremia - ~ 1 Liter FWD NAGMA ? can consider bicarb replacement if further decline noted. Procedures Date of Service Date of Service: 12/05/21
--- NOTE | 2021-12-05 18:11 | PC.NURSE ---
PATIENT BLADDER SCAN IS 18 ML .
--- NOTE | 2021-12-05 21:02 | PC.NURSE ---
patient use bed side commode ,had large dark color soft stool
[2021-12-05 21:11] LABS: Glucose, Whole Blood 234 mg/dL (60-115)
[2021-12-05] MEDS: Acetaminophen 325 MG TABLET 650 MG PO (21:19)
[2021-12-05] MEDS: QUEtiapine Fumarate 25 MG TABLET PO (21:19)
[2021-12-05 22:04] LABS: Vancomycin Random 14.2 mcg/mL (15-20)
[2021-12-06] VITALS (10 sets, daily range): BP systolic 148–164; BP diastolic 58–74; PULSE 66–89; RESP 16–26; TEMP 36.3–37; O2SAT 83–95; BMI 34.4
--- NOTE | 2021-12-06 00:32 | PC.NURSE ---
PATIENT USE BEDSIDE COMMODE HAD MODERATE AMOUNT OF STOOL AND LARGE AMOUNT OF URINE IN COMMODE,PATIENT BOTTOM IS RAW FROM HAVING SO MANY BOWEL MOVEMENT ,BARRIER CREAM APPLY ,PATIENT BACK IN BED.
--- NOTE | 2021-12-06 02:26 | PC.NURSE ---
CHECK ON PATIENT SEEM TO BE SOUND ASLEEP AT THIS TIME .
[2021-12-06] MEDS: Albumin Human 25 % 100 ML IV ×2 (02:55→08:52)
[2021-12-06] MEDS: Piperacillin Sodium/Tazobactam 3.375 GM in 0.9 % Sodium Chloride 50 ML IV ×4 (02:56→21:43)
[2021-12-06] MEDS: Lactated Ringers 1,000 ML 80 ML IVCONT ×2 (02:57→12:48)
[2021-12-06 07:01] LABS: Hematocrit 31.4 % (42.0-52.0); Hemoglobin 9.9 g/dl (14.0-18.0); Mean Corpuscular HGB Conc 31.5 g/dl (31.0-36.0); Mean Corpuscular Hemoglobin 26.4 pg (27.0-33.0); Mean Corpuscular Volume 83.7 fL (80.0-98.0); Mean Platelet Volume 9.5 fL (9.4-12.4); Platelet Count 216 X10*3/uL (160-400); Red Blood Count 3.75 X10*6/uL (4.60-5.80); Red Cell Distribution Width 18.6 % (11.0-16.0); White Blood Count 4.7 X10*3/uL (4.8-10.8)
[2021-12-06 07:20] LABS: Anion Gap 16 (12-20); Blood Urea Nitrogen 26 mg/dL (9-16); Calcium 8.4 mg/dL (8.4-10.2); Carbon Dioxide 19 mmol/L (22-29); Chloride 114 mmol/L (96-108); Creatinine Clr Calc Pharmacy 37.6; Estimated Glomerular Filt Rate 33; Glucose Random 149 mg/dL (60-115); Potassium 4.1 mmol/L (3.3-5.1); Sodium 145 mmol/L (135-145)
[2021-12-06 07:40] LABS: Glucose, Whole Blood 130 mg/dL (60-115)
--- NOTE | 2021-12-06 08:00 | P.PNIM_ITS ---
Subjective Subjective Date of Service: 12/06/21 Interval History: jared,hypoxia, possible mild toxic metabolic encephalopathy Review of Systems still sob especially excersionsal. denies any chest pain or nausea vomiting or abdominal pain Physical Exam Vital Signs: Vital Signs: Last Vital Signs Temp 98.0 F 12/06/21 07:25 Pulse 89 12/06/21 07:25 Resp 19 12/06/21 07:25 BP 154/64 H 12/06/21 07:25 Pulse Ox 93 12/06/21 07:25 BMI result Body Mass Index 34.4 Appearance: Alert.? Oriented X3, somewhat confused on detail questionin, not in distress. cvs: rrr, [id number] , no murmur res: air entry diminshed at bases ,few rhonchii abd: no rebound or guarding ,nt, bs present. ext pulses present , no cyanosis. neuro: axo3 , nonfocal Objective Data Active Medications Acetaminophen (Acetaminophen 325 Mg Tablet) 650 mg PO Q6H PRN PRN Reason: Pain, Mild (Pain Scale 1-3) Last Admin: 12/05/21 21:19 Dose: 650 mg Documented by: ALEISHA Albuterol Sulfate (Albuterol Sulfate 90 Mcg 8 Gm Inhaler) 1 puff INHALE RQ4H [facility] Last Admin: 12/06/21 04:45 Dose: Not Given Documented by: LOI Non-Admin Reason: Patient Asleep Amlodipine Besylate (Amlodipine Besylate 10 Mg Tablet) 10 mg PO DAILY [facility]; Protocol Last Admin: 12/05/21 08:13 Dose: 10 mg Documented by: ARGELIA Atorvastatin Calcium (Atorvastatin Calcium 80 Mg Tablet) 80 mg PO DAILY [facility] Last Admin: 12/05/21 08:13 Dose: 80 mg Documented by: ARGELIA Azathioprine (Azathioprine 50 Mg Tablet) 50 mg PO TID [facility] Last Admin: 12/05/21 21:20 Dose: Not Given Documented by: ALEISHA Non-Admin Reason: Med Not Available Clotrimazole (Clotrimazole 1 % Cream 15 Gm Tube) 1 appl TOPICAL BID [facility]; Protocol Last Admin: 12/05/21 22:04 Dose: Not Given Documented by: ALEISHA Non-Admin Reason: Med Not Available Dexamethasone Sodium Phosphate (Dexamethasone Sod Phosphate 4 Mg/Ml Vial) 6 mg IVPUSH DAILY [facility] Last Admin: 12/05/21 12:43 Dose: 6 mg Documented by: ARGELIA Dextrose (Dextrose 50 % 25 Gm/50 Ml Syringe) 25 gm IVPUSH Q15M PRN; Protocol PRN Reason: per Hypoglycemia Standing Ord. Docusate Sodium (Docusate Sodium 100 Mg Capsule) 100 mg PO DAILY PRN PRN Reason: Constipation Gabapentin (Gabapentin 300 Mg Capsule) 300 mg PO BID [facility] Last Admin: 12/05/21 21:19 Dose: 300 mg Documented by: ALEISHA Glipizide (Glipizide 5 Mg Tablet) 5 mg PO BID [facility] Last Admin: 12/05/21 21:19 Dose: 5 mg Documented by: ALEISHA Glucose (Glucose Gel 15 Gm Gel..Gram.) 15 gm PO Q15M PRN; Protocol PRN Reason: per Hypoglycemia Standing Ord. Heparin Sodium (Porcine) (Heparin Sodium,Porcine 5,000 Unit/Ml Vial) 5,000 unit SUBCUT Q12H [facility] Last Admin: 12/05/21 21:18 Dose: 5,000 unit Documented by: ALEISHA Piperacillin Sod/Tazobactam (Sod 3.375 gm/ Sodium Chloride) 50 mls @ 100 mls/hr IV Q6H [facility] Last Infusion: 12/06/21 03:11 Dose: 0 mls/hr Documented by: LOI Lactated Ringer's (Lr) 1,000 mls @ 80 mls/hr IVCONT .[id number] [facility] Last Admin: 12/06/21 02:57 Dose: 80 mls/hr Documented by: LOI Insulin Human Lispro (Insulin Lispro 100 Unit/Ml 3 Ml Vial) 0 unit SUBCUT QIDACHS [facility]; Protocol Last Admin: 12/05/21 21:21 Dose: 4 unit Documented by: ALEISHA Loperamide HCl (Loperamide Hcl 2 Mg Capsule) 2 mg PO BID [facility] Last Admin: 12/05/21 21:19 Dose: 2 mg Documented by: ALEISHA Mycophenolate Mofetil (Mycophenolate Mofetil 250 Mg Capsule) 500 mg PO BID [facility] Last Admin: 12/05/21 21:23 Dose: Not Given Documented by: ALEISHA Non-Admin Reason: Med Not Available Ondansetron HCl (Ondansetron Hcl 4 Mg/2 Ml Vial) 4 mg IVPUSH Q8H PRN PRN Reason: Nausea and Vomiting Pharmacy Consult (Consult Rx Perform Med Rec) 1 each MISCELLANE ONCE PRN PRN Reason: Consult order Pharmacy Consult (Consult Rx Vancomycin Dosing) 1 each MISCELLANE DAILY PRN PRN Reason: Consult order Pyridostigmine [place] (Pyridostigmine [place] 60 Mg Tablet) 60 mg PO QID [facility] Last Admin: 12/05/21 21:19 Dose: 60 mg Documented by: ALEISHA Quetiapine Fumarate (Quetiapine Fumarate 25 Mg Tablet) 25 mg PO BEDTIME [facility] Last Admin: 12/05/21 21:19 Dose: 25 mg Documented by: ALEISHA Sodium Chloride (0.9 % Sodium Chloride Flush 3 Ml Syringe) 3 ml IVFLUSH QSHIFT [facility] Last Admin: 12/05/21 23:28 Dose: Not Given Documented by: LOI Non-Admin Reason: IV Running Valsartan (Valsartan 80 Mg Tablet) 80 mg PO DAILY [facility]; Protocol Last Admin: 12/05/21 08:13 Dose: 80 mg Documented by: ARGELIA Labs CBC & Chem 7: 12/06/21 06:29 12/06/21 06:29 Labs: Laboratory Results - last 24 hr 12/02/21 12/03/21 12/04/21 06:23 07:18 18:40 MCV MCH MCHC RDW Plt Count MPV Absolute Nucleated RBC Nucleated RBC % (auto) Anion Gap Creatinine 0.83 1.04 Estim Creat Clear Calc Estimated GFR POC Glucose Random Glucose Calcium Total Bilirubin Direct Bilirubin AST ALT Alkaline Phosphatase Ammonia Total Protein Albumin Procalcitonin Urine Color Urine Appearance Urine pH Ur Specific [place] Urine Protein Urine Glucose (UA) Urine Ketones Urine Blood Urine Nitrite Ur Leukocyte Esterase Urine RBC Urine WBC Ur Squamous Epith Cells Urine Bacteria U Random Total Protein Ur Random Sodium Ur Random Potassium Ur Random Chloride Urine Creatinine Urine Microalbumin Microalb/Creat Ratio Protein/Creatinin Ratio Nasal Screen MRSA (PCR) NEGATIVE Nasal S. aureus Screen NEGATIVE Nasal MRSA/S.aureus Interp SEE NOTE Random Vancomycin 12/04/21 12/05/21 12/05/21 21:03 06:32 10:06 MCV MCH MCHC RDW Plt Count MPV Absolute Nucleated RBC Nucleated RBC % (auto) Anion Gap 17 Creatinine 2.06 H 1.87 H 1.90 H Estim Creat Clear Calc 40.7 Estimated GFR 35 POC Glucose Random Glucose 136 H D Calcium 8.0 L Total Bilirubin 0.4 Direct Bilirubin 0.2 AST 45 H ALT 42 H Alkaline Phosphatase 32 L Ammonia Total Protein 5.5 L Albumin 2.8 L D Procalcitonin Urine Color Urine Appearance Urine pH Ur Specific [place] Urine Protein Urine Glucose (UA) Urine Ketones Urine Blood Urine Nitrite Ur Leukocyte Esterase Urine RBC Urine WBC Ur Squamous Epith Cells Urine Bacteria U Random Total Protein Ur Random Sodium Ur Random Potassium Ur Random Chloride Urine Creatinine Urine Microalbumin Microalb/Creat Ratio Protein/Creatinin Ratio Nasal Screen MRSA (PCR) Nasal S. aureus Screen Nasal MRSA/S.aureus Interp Random Vancomycin 12/05/21 12/05/21 12/05/21 10:06 10:06 13:14 MCV MCH MCHC RDW Plt Count MPV Absolute Nucleated RBC Nucleated RBC % (auto) Anion Gap Creatinine Estim Creat Clear Calc Estimated GFR POC Glucose 98 Random Glucose Calcium Total Bilirubin Direct Bilirubin AST ALT Alkaline Phosphatase Ammonia 45 Total Protein Albumin Procalcitonin 0.11 Urine Color Urine Appearance Urine pH Ur Specific [place] Urine Protein Urine Glucose (UA) Urine Ketones Urine Blood Urine Nitrite Ur Leukocyte Esterase Urine RBC Urine WBC Ur Squamous Epith Cells Urine Bacteria U Random Total Protein Ur Random Sodium Ur Random Potassium Ur Random Chloride Urine Creatinine Urine Microalbumin Microalb/Creat Ratio Protein/Creatinin Ratio Nasal Screen MRSA (PCR) Nasal S. aureus Screen Nasal MRSA/S.aureus Interp Random Vancomycin 12/05/21 12/05/21 12/05/21 16:34 17:10 17:10 MCV MCH MCHC RDW Plt Count MPV Absolute Nucleated RBC Nucleated RBC % (auto) Anion Gap Creatinine Estim Creat Clear Calc Estimated GFR POC Glucose 166 H Random Glucose Calcium Total Bilirubin Direct Bilirubin AST ALT Alkaline Phosphatase Ammonia Total Protein Albumin Procalcitonin Urine Color YELLOW Urine Appearance CLEAR Urine pH 6.0 Ur Specific [place] <= 1.005 Urine Protein TRACE Urine Glucose (UA) NEG Urine Ketones NEG Urine Blood TRACE Urine Nitrite NEG Ur Leukocyte Esterase NEG Urine RBC 0-2 Urine WBC 0 Ur Squamous Epith Cells NONE Urine Bacteria TRACE U Random Total Protein 20 H Ur Random Sodium 68.0 Ur Random Potassium 15.0 Ur Random Chloride 53.0 Urine Creatinine 42.99 Urine Microalbumin 79.0 Microalb/Creat Ratio 183.7 Protein/Creatinin Ratio 0.47 H Nasal Screen MRSA (PCR) Nasal S. aureus Screen Nasal MRSA/S.aureus Interp Random Vancomycin 12/05/21 12/05/21 12/06/21 20:51 20:54 06:29 MCV MCH MCHC RDW Plt Count MPV Absolute Nucleated RBC Nucleated RBC % (auto) Anion Gap Creatinine Cancelled Estim Creat Clear Calc Cancelled Estimated GFR Cancelled POC Glucose 234 H Random Glucose Calcium Total Bilirubin Direct Bilirubin AST ALT Alkaline Phosphatase Ammonia Total Protein Albumin Procalcitonin Urine Color Urine Appearance Urine pH Ur Specific [place] Urine Protein Urine Glucose (UA) Urine Ketones Urine Blood Urine Nitrite Ur Leukocyte Esterase Urine RBC Urine WBC Ur Squamous Epith Cells Urine Bacteria U Random Total Protein Ur Random Sodium Ur Random Potassium Ur Random Chloride Urine Creatinine Urine Microalbumin Microalb/Creat Ratio Protein/Creatinin Ratio Nasal Screen MRSA (PCR) Nasal S. aureus Screen Nasal MRSA/S.aureus Interp Random Vancomycin 14.2 L 12/06/21 12/06/21 12/06/21 06:29 06:29 07:35 MCV 83.7 MCH 26.4 L MCHC 31.5 RDW 18.6 H Plt Count 216 MPV 9.5 Absolute Nucleated RBC 0.000 Nucleated RBC % (auto) 0.0 Anion Gap 16 Creatinine 1.97 H Estim Creat Clear Calc 37.6 Estimated GFR 33 POC Glucose 130 H Random Glucose 149 H Calcium 8.4 Total Bilirubin Direct Bilirubin AST ALT Alkaline Phosphatase Ammonia Total Protein Albumin Procalcitonin Urine Color Urine Appearance Urine pH Ur Specific [place] Urine Protein Urine Glucose (UA) Urine Ketones Urine Blood Urine Nitrite Ur Leukocyte Esterase Urine RBC Urine WBC Ur Squamous Epith Cells Urine Bacteria U Random Total Protein Ur Random Sodium Ur Random Potassium Ur Random Chloride Urine Creatinine Urine Microalbumin Microalb/Creat Ratio Protein/Creatinin Ratio Nasal Screen MRSA (PCR) Nasal S. aureus Screen Nasal MRSA/S.aureus Interp Random Vancomycin Assessment and Plan (1) Aspiration pneumonia: Status: Acute (2) Pneumonia due to COVID-19 virus: Status: Acute Plan 71-year-old male with a past medical history of hypertension, hyperlipidemia, diabetes, myasthenia gravis, chronic diarrhea presented to the hospital with a chief complaint of shortness of breath/generalized weakness.? Patient was COVID- 19 tested positive on 11/26.? Symptoms have been gradually worsening. COVID-19 pneumonia/ hypoxia: - Patient initially tested positive for COVID-19 on 11/26/2021. still sob cxr reviewed -possible pneumonia/atelactasis blood culture neg @48hrs - Patient is COVID-19 vaccinated - received 2 Pfizer vaccines.? Did not get the booster shot. swallow eval noted. ID consult for further recommendations- continue IV antibiotics, continue Decadron nasal mrsa neg,stop vanco cotninue zosyn jared seems multifactorial: intractable nausea vomiting, dehydration,poor oral intake,covid ,also had cta (in ed),also might vanco also . gentle hydration encouraged for oral intake and p.o. hydration stop vanco Nephro evaluation Mild transaminitis:? -The setting of COVID-19 infection.? - stable from recent admission History of hypertension:? - continue home medications History of diabetes:? Insulin sliding scale. History of chronic diarrhea: Patient on loperamide. History of myasthenia gravis:? Patient on azathioprine, mycophenolate, pyridostigmine -> will continue.? Hold prednisone for now.? As patient is on Decadron dvt ppx:? Heparin subQ inpatient need: aspiritional pneumonia,? COVID infection,jared Quality Stroke Does the patient have a stroke diagnosis?: No VTE Prior VTE?: No VTE Risk Level:: Medical - moderate - high VTE Device Contraindication: Treatment Not Indicated VTE Drug Contraindication: N/A - Med Ordered
[2021-12-06] MEDS: Albuterol Sulfate 90 MCG 8 GM INHALER 1 PUFF INHALE ×4 (08:57→19:37)
[2021-12-06] MEDS: dexAMETHasone sod phosphate 4 MG/ML VIAL 6 MG IVPUSH (09:08)
[2021-12-06] MEDS: Heparin Sodium,Porcine 5,000 UNIT/ML VIAL 5000 UNIT SUBCUT ×2 (09:09→21:43)
[2021-12-06 09:10] LABS: MRSA Nasal PCR NEGATIVE (Negative); SA Nasal PCR NEGATIVE (Negative)
[2021-12-06] MEDS: Loperamide HCl 2 MG CAPSULE PO ×2 (09:11→21:44)
[2021-12-06] MEDS: Atorvastatin Calcium 80 MG TABLET PO (09:11)
[2021-12-06] MEDS: amLODIPine Besylate 10 MG TABLET PO (09:11)
[2021-12-06] MEDS: Gabapentin 300 MG CAPSULE PO ×2 (09:11→21:44)
[2021-12-06] MEDS: glipiZIDE 5 MG TABLET PO ×2 (09:11→21:44)
[2021-12-06] MEDS: Clotrimazole 1 % Cream 15 GM TUBE 1 APPL TOPICAL ×2 (09:18→22:42)
[2021-12-06] MEDS: mycophenolate mofetiL 250 MG CAPSULE 500 MG PO ×2 (11:44→21:44)
[2021-12-06] MEDS: azaTHIOprine 50 MG TABLET PO ×3 (11:44→22:42)
[2021-12-06 12:02] LABS: Glucose, Whole Blood 132 mg/dL (60-115)
--- NOTE | 2021-12-06 12:14 | PC.NURSE ---
some morning meds were not loaded in overflow pyxis. this underwriter solicitation director spoke with Matt in pharmacy. meds loaded past scheduled administration time. meds given late
--- NOTE | 2021-12-06 16:03 | PC.NURSE ---
pharmacy called for missing med
--- NOTE | 2021-12-06 17:06 | PC.NURSE ---
patient a&o, no c/o pain or discomfort, compliance monitor nsr 80s, ivf running per order, pt medicated per order, call pastor within reach, will continue to monitor.
--- NOTE | 2021-12-06 17:58 | PC.NURSE ---
meals are late to unit, poc and insulin are being held until meals arrive
[2021-12-06 18:45] LABS: Glucose, Whole Blood 207 mg/dL (60-115)
[2021-12-06 18:45] LABS: Glucose, Whole Blood 260 mg/dL (60-115)
[2021-12-06] MEDS: Insulin Lispro 100 UNIT/ML 3 ML VIAL SUBCUT ×2 (19:03→21:43)
--- NOTE | 2021-12-06 19:13 | PC.NURSE ---
patient a&ox3, pt c/o being hot, temp wnl, pt given ice packs for comfort, this nurse obtained vitals, noted patients o2 sat in low 80s despite being on o2 nc, this nurse swapped out the nc for oxymask and had patient slow deep breathe, notified respiratory and will contact the provider, patients current o2 sat is 97% on 9L oxymask.
--- NOTE | 2021-12-06 20:27 | PM.PNNEP ---
Subjective Subjective Date of Service: 12/06/21 Interval history: chart reviewed. Events noted. Physical Exam Vital Signs: Vital Signs: Last Vital Signs Temp 98.6 F 12/06/21 19:10 Pulse 69 12/06/21 19:37 Resp 18 12/06/21 19:37 BP 164/74 H 12/06/21 19:10 Pulse Ox 95 12/06/21 19:12 BMI result Body Mass Index 34.4 Const: General: no acute distress HEENT: Head: Yes normocephalic Neck: Neck: Yes no JVD Resp: Auscultation: clear to auscultation bilaterally Cardio: Jugular venous distension: no JVD Rate: regular rate Rhythm: regular rhythm GI: Auscultation: normal bowel sounds Neuro: General: tone normal Extrem: General: Yes no joint enlargement Objective Data Labs CBC & Chem 7: 12/06/21 06:29 12/06/21 06:29 Labs: Laboratory Results - last 24 hr 12/05/21 12/05/21 12/05/21 17:57 20:51 20:54 WBC RBC Hgb Hct MCV MCH MCHC RDW Plt Count MPV Absolute Nucleated RBC Nucleated RBC % (auto) Sodium Potassium Chloride Carbon Dioxide Anion Gap BUN Creatinine Estim Creat Clear Calc Estimated GFR POC Glucose 234 H Random Glucose Calcium Nasal Screen MRSA (PCR) NEGATIVE Nasal S. aureus Screen NEGATIVE Nasal MRSA/S.aureus Interp SEE NOTE Random Vancomycin 14.2 L 12/06/21 12/06/21 12/06/21 06:29 06:29 06:29 WBC 4.7 L RBC 3.75 L Hgb 9.9 L Hct 31.4 L MCV 83.7 MCH 26.4 L MCHC 31.5 RDW 18.6 H Plt Count 216 MPV 9.5 Absolute Nucleated RBC 0.000 Nucleated RBC % (auto) 0.0 Sodium 145 Potassium 4.1 Chloride 114 H Carbon Dioxide 19 L Anion Gap 16 BUN 26 H Creatinine Cancelled 1.97 H Estim Creat Clear Calc Cancelled 37.6 Estimated GFR Cancelled 33 POC Glucose Random Glucose 149 H Calcium 8.4 Nasal Screen MRSA (PCR) Nasal S. aureus Screen Nasal MRSA/S.aureus Interp Random Vancomycin 12/06/21 12/06/21 12/06/21 07:35 11:55 17:33 WBC RBC Hgb Hct MCV MCH MCHC RDW Plt Count MPV Absolute Nucleated RBC Nucleated RBC % (auto) Sodium Potassium Chloride Carbon Dioxide Anion Gap BUN Creatinine Estim Creat Clear Calc Estimated GFR POC Glucose 130 H 132 H 260 H Random Glucose Calcium Nasal Screen MRSA (PCR) Nasal S. aureus Screen Nasal MRSA/S.aureus Interp Random Vancomycin 12/06/21 18:42 WBC RBC Hgb Hct MCV MCH MCHC RDW Plt Count MPV Absolute Nucleated RBC Nucleated RBC % (auto) Sodium Potassium Chloride Carbon Dioxide Anion Gap BUN Creatinine Estim Creat Clear Calc Estimated GFR POC Glucose 207 H Random Glucose Calcium Nasal Screen MRSA (PCR) Nasal S. aureus Screen Nasal MRSA/S.aureus Interp Random Vancomycin Microbiology Microbiology Results: Microbiology 12/02/21 06:24 Blood - Venous Blood Culture - Preliminary No growth after 48 hours. 12/02/21 06:23 Blood - Venous Blood Culture - Preliminary No growth after 48 hours. Procedures Date of Service Date of Service: 12/06/21 Assessment & Plan Assessment and plan (1) Acute kidney injury: Status: Acute Plan #) KIMBERLEY, Non-Oliguric: Normal renal function at BL s/p CTA chest to r/o PE performed on 12/02 with subsequent rise in S-Cr Consistent with URIEL. UA reviewed. Relatively bland with noted proteinuria. Some component of volume depletion. Received IVFs Hold nsaids, acei/arb, IV contrast, renal dosing abx. Renal panel daily Bladder scan if oliguria/anuria Abdominal US did not reveal hydronephrosis of right kidney. Left kidney not visualized. Hypernatremia - ~ 1 Liter FWD NAGMA ? can consider bicarb replacement if further decline noted. Time Spent With Patient Time: Total time spent is greater than 50% in coordination of care (as documented) at patient's floor/unit and/or counseling patient: Progress Note: Quality Stroke Does the patient have a stroke diagnosis?: No
--- NOTE | 2021-12-06 21:14 | PC.NURSE ---
per request via tiger text of Dr. Lewis, pts IVF were put on hold due to the results of cxr. patient continues to be on oxymask at 9liters, rhonchi noted in upper lobes. will continue to monitor.
[2021-12-06] MEDS: Furosemide 40 MG/4 ML VIAL IVPUSH (21:43)
[2021-12-06] MEDS: QUEtiapine Fumarate 25 MG TABLET PO (21:44)
--- NOTE | 2021-12-06 22:28 | PC.NURSE ---
called pharmacy for missing meds, lab is on the unit to draw patient
[2021-12-06] MEDS: Morphine Sulfate 4 MG/ML CARTRIDGE IVPUSH (22:42)
[2021-12-06 22:43] LABS: Glucose, Whole Blood 219 mg/dL (60-115)
[2021-12-06 23:03] LABS: B Type Natriuretic Peptide 366 pg/mL (<100)
--- NOTE | 2021-12-06 23:10 | PM.EVENT ---
Event Note Date of Service: 12/06/21 Event Note: pt had increased hypoxia and resp distress/ chest xray obtained showed worsening pulmonary infiltrates and concern for pulm edema. Fluids discontinues. BNP obtained which is increased from time of admisison pt given lasix, echo ordered
[2021-12-07] VITALS (10 sets, daily range): BP systolic 144–170; BP diastolic 58–90; PULSE 55–80; RESP 16–22; TEMP 36–37; O2SAT 96–99; BMI 34.5
[2021-12-07 00:18] LABS: Troponin-I High Sensitivity 16.1 ng/L (<3.5-35.0)
[2021-12-07] MEDS: 0.9 % Sodium Chloride Flush 3 ML SYRINGE IVFLUSH ×2 (00:37→21:21)
--- NOTE | 2021-12-07 01:48 | PC.NURSE ---
Took over patient care around 2300. Pt in isolation room and precautions are maintained. Pt is A&Ox3, pleasant and cooperative. Speech is clear and appropriate. LS-rhonchi in upper lobes. +sob with minimal exertion. O2 sat98% on 9L Oxymask. Pt reporting feeling cold-warm blanket given. Pt voiding light colored urine in urinals at bedside. Pt denies pain. Call pastor in patients hand and bed alarm on for safety. Will continue to monitor.
[2021-12-07] MEDS: Piperacillin Sodium/Tazobactam 3.375 GM in 0.9 % Sodium Chloride 50 ML IV ×4 (02:37→21:21)
--- NOTE | 2021-12-07 03:36 | PC.NURSE ---
Called report to Judith in [facility] at 03:32. Pt to be transferred in bed with O2 on 9L via oxymask. No c/o pain at present.
[2021-12-07 07:36] LABS: Creatinine Clr Calc Pharmacy 38.2; Estimated Glomerular Filt Rate 34
[2021-12-07 07:44] LABS: Glucose, Whole Blood 146 mg/dL (60-115)
[2021-12-07] MEDS: Heparin Sodium,Porcine 5,000 UNIT/ML VIAL 5000 UNIT SUBCUT ×2 (07:52→21:21)
[2021-12-07] MEDS: Furosemide 40 MG/4 ML VIAL IVPUSH (07:53)
[2021-12-07] MEDS: glipiZIDE 5 MG TABLET PO ×2 (07:55→21:20)
[2021-12-07] MEDS: Gabapentin 300 MG CAPSULE PO (07:55)
[2021-12-07] MEDS: mycophenolate mofetiL 250 MG CAPSULE 500 MG PO ×2 (07:55→21:20)
[2021-12-07] MEDS: Atorvastatin Calcium 80 MG TABLET PO (07:55)
[2021-12-07] MEDS: amLODIPine Besylate 10 MG TABLET PO (07:55)
[2021-12-07] MEDS: Loperamide HCl 2 MG CAPSULE PO ×2 (07:55→21:20)
[2021-12-07] MEDS: azaTHIOprine 50 MG TABLET PO ×3 (07:56→21:19)
[2021-12-07] MEDS: dexAMETHasone sod phosphate 4 MG/ML VIAL 6 MG IVPUSH (08:04)
--- NOTE | 2021-12-07 08:04 | P.PNIM_ITS ---
Subjective Subjective Date of Service: 12/07/21 Interval History: acute hypoxemic respiratory failure- possible multifactorial KIMBERLEY,pulm edema Review of Systems patient says he has shortness of breath seems to be improving, has some dry c ough otherwise denies any chest pain, talking in full sentences, lying comfortably in bed. Denies any fever or chills. Physical Exam Vital Signs: Vital Signs: Last Vital Signs Temp 97.4 F 12/07/21 07:30 Pulse 60 12/07/21 07:30 Resp 20 12/07/21 07:30 BP 170/67 H 12/07/21 07:30 Pulse Ox 98 12/07/21 07:30 BMI result Body Mass Index 34.5 ? Appearance: Alert.? Oriented X3, similar to yesterday, not in distress. cvs: [id number], [id number] res: air entry diminshed at bases ,few faint rales scatteres at bases. abd: no rebound or guarding ,nt, bs present. ext pulses present , no cyanosis. neuro: axo3 , nonfocal Objective Data Active Medications Acetaminophen (Acetaminophen 325 Mg Tablet) 650 mg PO Q6H PRN PRN Reason: Pain, Mild (Pain Scale 1-3) Last Admin: 12/05/21 21:19 Dose: 650 mg Documented by: ALEISHA Albuterol Sulfate (Albuterol Sulfate 90 Mcg 8 Gm Inhaler) 1 puff INHALE RQ4H [facility] Last Admin: 12/07/21 08:01 Dose: Not Given Documented by: TYRON Non-Admin Reason: Patient Refused Amlodipine Besylate (Amlodipine Besylate 10 Mg Tablet) 10 mg PO DAILY [facility]; Protocol Last Admin: 12/06/21 09:11 Dose: 10 mg Documented by: VIK Atorvastatin Calcium (Atorvastatin Calcium 80 Mg Tablet) 80 mg PO DAILY [facility] Last Admin: 12/06/21 09:11 Dose: 80 mg Documented by: VIK Azathioprine (Azathioprine 50 Mg Tablet) 50 mg PO TID [facility] Last Admin: 12/06/21 22:42 Dose: 50 mg Documented by: ALFRED Clotrimazole (Clotrimazole 1 % Cream 15 Gm Tube) 1 appl TOPICAL BID [facility]; Protocol Last Admin: 12/06/21 22:42 Dose: 1 appl Documented by: ALFRED Dexamethasone Sodium Phosphate (Dexamethasone Sod Phosphate 4 Mg/Ml Vial) 6 mg IVPUSH DAILY [facility] Last Admin: 12/06/21 09:08 Dose: 6 mg Documented by: VIK Dextrose (Dextrose 50 % 25 Gm/50 Ml Syringe) 25 gm IVPUSH Q15M PRN; Protocol PRN Reason: per Hypoglycemia Standing Ord. Docusate Sodium (Docusate Sodium 100 Mg Capsule) 100 mg PO DAILY PRN PRN Reason: Constipation Furosemide (Furosemide 40 Mg/4 Ml Vial) 40 mg IVPUSH BID@0900,1800 [facility]; Protocol Gabapentin (Gabapentin 100 Mg Capsule) 200 mg PO BID [facility] Glipizide (Glipizide 5 Mg Tablet) 5 mg PO BID [facility] Last Admin: 12/06/21 21:44 Dose: 5 mg Documented by: ALFRED Glucose (Glucose Gel 15 Gm Gel..Gram.) 15 gm PO Q15M PRN; Protocol PRN Reason: per Hypoglycemia Standing Ord. Heparin Sodium (Porcine) (Heparin Sodium,Porcine 5,000 Unit/Ml Vial) 5,000 unit SUBCUT Q12H [facility] Last Admin: 12/06/21 21:43 Dose: 5,000 unit Documented by: ALFRED Piperacillin Sod/Tazobactam (Sod 3.375 gm/ Sodium Chloride) 50 mls @ 100 mls/hr IV Q6H [facility] Last Infusion: 12/07/21 04:56 Dose: 0 mls/hr Documented by: LISA Insulin Human Lispro (Insulin Lispro 100 Unit/Ml 3 Ml Vial) 0 unit SUBCUT QIDACHS [facility]; Protocol Last Admin: 12/07/21 07:36 Dose: Not Given Documented by: BRONSON Non-Admin Reason: No Insulin Coverage Loperamide HCl (Loperamide Hcl 2 Mg Capsule) 2 mg PO BID [facility] Last Admin: 12/06/21 21:44 Dose: 2 mg Documented by: ALFRED Mycophenolate Mofetil (Mycophenolate Mofetil 250 Mg Capsule) 500 mg PO BID [facility] Last Admin: 12/06/21 21:44 Dose: 500 mg Documented by: ALFRED Ondansetron HCl (Ondansetron Hcl 4 Mg/2 Ml Vial) 4 mg IVPUSH Q8H PRN PRN Reason: Nausea and Vomiting Pharmacy Consult (Consult Rx Perform Med Rec) 1 each MISCELLANE ONCE PRN PRN Reason: Consult order Pharmacy Consult (Consult Rx Vancomycin Dosing) 1 each MISCELLANE DAILY PRN PRN Reason: Consult order Pyridostigmine [place] (Pyridostigmine [place] 60 Mg Tablet) 60 mg PO QID [facility] Last Admin: 12/06/21 22:43 Dose: 60 mg Documented by: ALFRED Quetiapine Fumarate (Quetiapine Fumarate 25 Mg Tablet) 25 mg PO BEDTIME [facility] Last Admin: 12/06/21 21:44 Dose: 25 mg Documented by: ALFRED Sodium Chloride (0.9 % Sodium Chloride Flush 3 Ml Syringe) 3 ml IVFLUSH QSHIFT [facility] Last Admin: 12/07/21 00:37 Dose: 3 ml Documented by: FAM Valsartan (Valsartan 80 Mg Tablet) 80 mg PO DAILY [facility]; Protocol Last Admin: 12/05/21 08:13 Dose: 80 mg Documented by: ARGELIA Labs CBC & Chem 7: 12/06/21 06:29 12/07/21 06:56 Labs: Laboratory Results - last 24 hr 12/05/21 12/06/21 12/06/21 17:57 11:55 17:33 Estim Creat Clear Calc Estimated GFR POC Glucose 132 H 260 H Troponin I High Sens B-Natriuretic Peptide Nasal Screen MRSA (PCR) NEGATIVE Nasal S. aureus Screen NEGATIVE Nasal MRSA/S.aureus Interp SEE NOTE 12/06/21 12/06/21 12/06/21 18:42 21:32 22:31 Estim Creat Clear Calc Estimated GFR POC Glucose 207 H 219 H Troponin I High Sens B-Natriuretic Peptide 366 H Nasal Screen MRSA (PCR) Nasal S. aureus Screen Nasal MRSA/S.aureus Interp 12/06/21 12/07/21 12/07/21 23:48 06:56 07:30 Estim Creat Clear Calc 38.2 Estimated GFR 34 POC Glucose 146 H Troponin I High Sens 16.1 B-Natriuretic Peptide Nasal Screen MRSA (PCR) Nasal S. aureus Screen Nasal MRSA/S.aureus Interp Assessment and Plan (1) Aspiration pneumonia: Status: Acute (2) Pneumonia due to COVID-19 virus: Status: Acute Plan 71-year-old male with a past medical history of hypertension, hyperlipidemia, diabetes, myasthenia gravis, chronic diarrhea presented to the hospital with a chief complaint of shortness of breath/generalized weakness.? Patient was COVID- 19 tested positive on 11/26.? Symptoms have been gradually worsening. acute hypoxemic respiratory failure -multifactorial- COVID-19 pneumonia/ possible pulm edema ( received ivf for kimberley): - Patient initially tested positive for COVID-19 on 11/26/2021. still sob intial cxr reviewed -possible pneumonia/atelactasis , last night event noted- Patient was short of breath: Chest x-ray shows possible pulmonary edema, elevated Bnp,blood culture neg @48hrs Patient is COVID-19 vaccinated - received 2 Pfizer vaccines.? Did not get the booster shot. swallow eval noted. echo added i/o noted -almost 35liter neg since yesterday ID consult for further recommendations- continue IV antibiotics, continue Decadron,iv lasix adjusted. nasal mrsa neg,stop vanco cotninue zosyn kimberley seems multifactorial/hypernatremia : intractable nausea vomiting, dehydration,poor oral intake,covid ,also had cta (in [place]),also might vanco also . nausea ,vomitning impoved , encouraged for oral intake and p.o. hydration and free water due to hpernatermia stop vanco Nephro evaluation toxic metabolic encephalopathy-mulifactorial mental similar to yesterday Mild transaminitis:? -The setting of COVID-19 infection.? - stable from recent admission History of hypertension:? - continue home medications History of diabetes:? Insulin sliding scale. History of chronic diarrhea: Patient on loperamide. History of myasthenia gravis:? Patient on azathioprine, mycophenolate, pyridostigmine -> will continue.? Hold prednisone for now.? As patient is on Decadron dvt ppx:? Heparin subQ inpatient need: aspiritional pneumonia,? COVID infection,kimberley,pulm edema Quality Stroke Does the patient have a stroke diagnosis?: No VTE Prior VTE?: No VTE Risk Level:: Medical - moderate - high VTE Device Contraindication: Treatment Not Indicated VTE Drug Contraindication: N/A - Med Ordered
[2021-12-07 08:18] LABS: Anion Gap 20 (12-20); Blood Urea Nitrogen 28 mg/dL (9-16); Calcium 8.8 mg/dL (8.4-10.2); Carbon Dioxide 20 mmol/L (22-29); Chloride 112 mmol/L (96-108); Glucose Random 148 mg/dL (60-115); Potassium 3.8 mmol/L (3.3-5.1); Sodium 148 mmol/L (135-145)
[2021-12-07] MEDS: Albuterol Sulfate 90 MCG 8 GM INHALER 1 PUFF INHALE ×3 (11:23→20:55)
[2021-12-07 11:58] LABS: Glucose, Whole Blood 217 mg/dL (60-115)
[2021-12-07] MEDS: Clotrimazole 1 % Cream 15 GM TUBE 1 APPL TOPICAL ×2 (12:32→21:21)
[2021-12-07] MEDS: Insulin Lispro 100 UNIT/ML 3 ML VIAL SUBCUT ×3 (12:33→21:19)
[2021-12-07] MEDS: Sodium Bicarbonate 650 MG TABLET PO (15:14)
[2021-12-07 16:19] LABS: Glucose, Whole Blood 325 mg/dL (60-115)
[2021-12-07] MEDS: Acetaminophen 325 MG TABLET 650 MG PO (16:34)
[2021-12-07 19:52] LABS: Glucose, Whole Blood 360 mg/dL (60-115)
[2021-12-07] MEDS: QUEtiapine Fumarate 25 MG TABLET PO (21:20)
[2021-12-07] MEDS: Gabapentin 100 MG CAPSULE 200 MG PO (21:20)
[2021-12-07] MEDS: ondansetron HCL 4 MG/2 ML VIAL IVPUSH (21:47)
[2021-12-08] VITALS (10 sets, daily range): BP systolic 123–155; BP diastolic 57–76; PULSE 62–85; RESP 12–21; TEMP 36–36.7; O2SAT 95–98
[2021-12-08] MEDS: Piperacillin Sodium/Tazobactam 3.375 GM in 0.9 % Sodium Chloride 50 ML IV ×4 (02:16→21:36)
[2021-12-08 07:22] LABS: Hematocrit 39.7 % (42.0-52.0)
[2021-12-08 07:23] LABS: Glucose, Whole Blood 120 mg/dL (60-115)
[2021-12-08 07:49] LABS: Anion Gap 18 (12-20); Blood Urea Nitrogen 35 mg/dL (9-16); Calcium 8.8 mg/dL (8.4-10.2); Carbon Dioxide 25 mmol/L (22-29); Chloride 108 mmol/L (96-108); Creatinine Clr Calc Pharmacy 36.8; Estimated Glomerular Filt Rate 33; Glucose Random 108 mg/dL (60-115); Potassium 4.2 mmol/L (3.3-5.1); Sodium 147 mmol/L (135-145)
[2021-12-08 07:51] LABS: Creatinine Clr Calc Pharmacy 36.6; Estimated Glomerular Filt Rate 33
--- NOTE | 2021-12-08 07:52 | HO.PM.IMPN ---
Subjective Subjective Date of Service: 12/08/21 Interval History: chf,jared Review of Systems Shortness breath is seems improving, denies any chest pain or nausea vomiting or abdominal pain or fever chills. Mental status is at baseline. Physical Exam Vital Signs: Vital Signs: Last Vital Signs Temp 96.8 F 12/08/21 07:08 Pulse 75 12/08/21 07:08 Resp 12 12/08/21 07:08 BP 155/66 H 12/08/21 07:08 Pulse Ox 96 12/08/21 07:08 BMI result Body Mass Index 34.5 ?Appearance: Alert.? Oriented X3, similar to yesterday, not in distress. cvs: rrr, [id number] res: air entry diminshed at bases ,few faint rales scatteres at bases. abd: no rebound or guarding ,nt, bs present. ext pulses present , no cyanosis. neuro: axo3 , nonfocal Objective Data Active Medications Acetaminophen (Acetaminophen 325 Mg Tablet) 650 mg PO Q6H PRN PRN Reason: Pain, Mild (Pain Scale 1-3) Last Admin: 12/05/21 21:19 Dose: 650 mg Documented by: ALEISHA Albuterol Sulfate (Albuterol Sulfate 90 Mcg 8 Gm Inhaler) 1 puff INHALE RQ4H [facility] Last Admin: 12/08/21 03:41 Dose: Not Given Documented by: AFRICA Non-Admin Reason: Patient Asleep Amlodipine Besylate (Amlodipine Besylate 10 Mg Tablet) 10 mg PO DAILY [facility]; Protocol Last Admin: 12/07/21 07:55 Dose: 10 mg Documented by: BRONSON Atorvastatin Calcium (Atorvastatin Calcium 80 Mg Tablet) 80 mg PO DAILY [facility] Last Admin: 12/07/21 07:55 Dose: 80 mg Documented by: BRONSON Azathioprine (Azathioprine 50 Mg Tablet) 50 mg PO TID [facility] Last Admin: 12/07/21 21:19 Dose: 50 mg Documented by: SHASHI Clotrimazole (Clotrimazole 1 % Cream 15 Gm Tube) 1 appl TOPICAL BID [facility]; Protocol Last Admin: 12/07/21 21:21 Dose: 1 appl Documented by: SHASHI Dexamethasone Sodium Phosphate (Dexamethasone Sod Phosphate 4 Mg/Ml Vial) 6 mg IVPUSH DAILY [facility] Last Admin: 12/07/21 08:04 Dose: 6 mg Documented by: BRONSON Dextrose (Dextrose 50 % 25 Gm/50 Ml Syringe) 25 gm IVPUSH Q15M PRN; Protocol PRN Reason: per Hypoglycemia Standing Ord. Docusate Sodium (Docusate Sodium 100 Mg Capsule) 100 mg PO DAILY PRN PRN Reason: Constipation Gabapentin (Gabapentin 100 Mg Capsule) 200 mg PO BID [facility] Last Admin: 12/07/21 21:20 Dose: 200 mg Documented by: SHASHI Glipizide (Glipizide 5 Mg Tablet) 5 mg PO BID [facility] Last Admin: 12/07/21 21:20 Dose: 5 mg Documented by: SHASHI Glucose (Glucose Gel 15 Gm Gel..Gram.) 15 gm PO Q15M PRN; Protocol PRN Reason: per Hypoglycemia Standing Ord. Heparin Sodium (Porcine) (Heparin Sodium,Porcine 5,000 Unit/Ml Vial) 5,000 unit SUBCUT Q12H [facility] Last Admin: 12/07/21 21:21 Dose: 5,000 unit Documented by: SHASHI Piperacillin Sod/Tazobactam (Sod 3.375 gm/ Sodium Chloride) 50 mls @ 100 mls/hr IV Q6H [facility] Last Infusion: 12/08/21 03:20 Dose: 0 mls/hr Documented by: SHASHI Insulin Human Lispro (Insulin Lispro 100 Unit/Ml 3 Ml Vial) 0 unit SUBCUT QIDACHS [facility]; Protocol Last Admin: 12/08/21 07:38 Dose: Not Given Documented by: MAVIS Non-Admin Reason: No Insulin Coverage Loperamide HCl (Loperamide Hcl 2 Mg Capsule) 2 mg PO BID [facility] Last Admin: 12/07/21 21:20 Dose: 2 mg Documented by: SHASHI Mycophenolate Mofetil (Mycophenolate Mofetil 250 Mg Capsule) 500 mg PO BID [facility] Last Admin: 12/07/21 21:20 Dose: 500 mg Documented by: SHASHI Ondansetron HCl (Ondansetron Hcl 4 Mg/2 Ml Vial) 4 mg IVPUSH Q8H PRN PRN Reason: Nausea and Vomiting Last Admin: 12/07/21 21:47 Dose: 4 mg Documented by: SHASHI Pharmacy Consult (Consult Rx Perform Med Rec) 1 each MISCELLANE ONCE PRN PRN Reason: Consult order Pharmacy Consult (Consult Rx Vancomycin Dosing) 1 each MISCELLANE DAILY PRN PRN Reason: Consult order Pyridostigmine [place] (Pyridostigmine [place] 60 Mg Tablet) 60 mg PO QID [facility] Last Admin: 12/07/21 21:19 Dose: 60 mg Documented by: SHASHI Quetiapine Fumarate (Quetiapine Fumarate 25 Mg Tablet) 25 mg PO BEDTIME [facility] Last Admin: 12/07/21 21:20 Dose: 25 mg Documented by: SHASHI Sodium Bicarbonate (Sodium Bicarbonate 650 Mg Tablet) 650 mg PO DAILY [facility] Last Admin: 12/07/21 15:14 Dose: 650 mg Documented by: BRONSON Sodium Chloride (0.9 % Sodium Chloride Flush 3 Ml Syringe) 3 ml IVFLUSH QSHIFT [facility] Last Admin: 12/07/21 21:21 Dose: 3 ml Documented by: SHASHI Valsartan (Valsartan 80 Mg Tablet) 80 mg PO DAILY [facility]; Protocol Last Admin: 12/05/21 08:13 Dose: 80 mg Documented by: ARGELIA Labs CBC & Chem 7: 12/08/21 06:43 12/08/21 06:43 Labs: Laboratory Results - last 24 hr 12/07/21 12/07/21 12/07/21 06:56 11:51 16:15 Anion Gap 20 Estim Creat Clear Calc 38.2 Estimated GFR 34 POC Glucose 217 H 325 H Random Glucose 148 H Calcium 8.8 12/07/21 12/08/21 12/08/21 19:49 06:43 06:43 Anion Gap 18 Estim Creat Clear Calc 36.6 36.8 Estimated GFR 33 33 POC Glucose 360 H* Random Glucose 108 Calcium 8.8 12/08/21 07:10 Anion Gap Estim Creat Clear Calc Estimated GFR POC Glucose 120 H Random Glucose Calcium Microbiology Microbiology Results: Microbiology 12/02/21 06:23 Blood Culture - Final Blood - Venous No growth after 5 days. 12/02/21 06:24 Blood Culture - Final Blood - Venous No growth after 5 days. Assessment and Plan (1) Aspiration pneumonia: Status: Acute (2) Pneumonia due to COVID-19 virus: Status: Acute Plan 71-year-old male with a past medical history of hypertension, hyperlipidemia, diabetes, myasthenia gravis, chronic diarrhea presented to the hospital with a chief complaint of shortness of breath/generalized weakness.? Patient was COVID-19 tested positive on 11/26.? Symptoms have been gradually worsening. acute hypoxemic respiratory failure -multifactorial- COVID-19 pneumonia/ possible pulm edema ( received ivf for jared): Patient is COVID-19 vaccinated - received 2 Pfizer vaccines.? Did not get the booster shot. - Patient initially tested positive for COVID-19 on 11/26/2021. still sob intial cxr reviewed -possible pneumonia/atelactasis Patient was short of breath 2days back : Chest x-ray shows possible pulmonary edema, elevated Bnp,blood culture neg @48hrs cxr done today -seems improvement in changes swallow eval noted. echo added i/o noted -almost 2.8liter neg cr slightly up ID consult for further recommendations- continue IV antibiotics, continue Decadron iv lasix hold for today. cotninue zosyn moniter i/o closley , bnp , may need cardio eval ,echo pending jared seems multifactorial/hypernatremia : intractable nausea vomiting, dehydration,poor oral intake,covid ,also had cta (in [place]). nausea ,vomitning impoved , encouraged for oral intake and p.o. hydration and free water due to hpernatermia stop vanco Nephro evaluation-noted , lasixon hold ,po free water-sodium improvin toxic metabolic encephalopathy-mulifactorial mental status seems near baseline. Mild transaminitis:? -The setting of COVID-19 infection.? - stable from recent admission History of hypertension:? - continue home medications History of diabetes:? Insulin sliding scale. History of chronic diarrhea: Patient on loperamide. History of myasthenia gravis:? Patient on azathioprine, mycophenolate, pyridostigmine -> will continue.? Hold prednisone for now.? As patient is on Decadron dvt ppx:? Heparin subQ inpatient need: aspiritional pneumonia,? COVID infection,jared,pulm edema updated family in detail. Quality Stroke Does the patient have a stroke diagnosis?: No VTE Prior VTE?: No VTE Risk Level:: Medical - moderate - high VTE Device Contraindication: Treatment Not Indicated VTE Drug Contraindication: N/A - Med Ordered
[2021-12-08] MEDS: Albuterol Sulfate 90 MCG 8 GM INHALER 1 PUFF INHALE ×4 (08:04→20:25)
[2021-12-08] MEDS: dexAMETHasone sod phosphate 4 MG/ML VIAL 6 MG IVPUSH (10:17)
[2021-12-08] MEDS: 0.9 % Sodium Chloride Flush 3 ML SYRINGE IVFLUSH ×3 (10:18→21:37)
[2021-12-08] MEDS: amLODIPine Besylate 10 MG TABLET PO (10:18)
[2021-12-08] MEDS: glipiZIDE 5 MG TABLET PO ×2 (10:18→21:35)
[2021-12-08] MEDS: Sodium Bicarbonate 650 MG TABLET PO (10:18)
[2021-12-08] MEDS: Gabapentin 100 MG CAPSULE 200 MG PO ×2 (10:18→21:35)
[2021-12-08] MEDS: Loperamide HCl 2 MG CAPSULE PO ×2 (10:18→21:36)
[2021-12-08] MEDS: mycophenolate mofetiL 250 MG CAPSULE 500 MG PO ×2 (10:18→21:35)
[2021-12-08] MEDS: Atorvastatin Calcium 80 MG TABLET PO (10:18)
[2021-12-08] MEDS: azaTHIOprine 50 MG TABLET PO ×3 (10:19→21:36)
[2021-12-08] MEDS: Clotrimazole 1 % Cream 15 GM TUBE 1 APPL TOPICAL ×2 (10:28→21:37)
[2021-12-08] MEDS: Heparin Sodium,Porcine 5,000 UNIT/ML VIAL 5000 UNIT SUBCUT ×2 (10:32→21:35)
--- NOTE | 2021-12-08 11:02 | MHC.CM.PN ---
Per ROUNDS discussion, Patient is not yet medically cleared for dc (IV Decadron, IV Zosyn, PNA, Covid); Home with services is the goal and CM will continue to follow.
[2021-12-08 11:45] LABS: Glucose, Whole Blood 121 mg/dL (60-115)
--- NOTE | 2021-12-08 12:01 | PM.PNNEP ---
Subjective Subjective Date of Service: 12/08/21 Interval history: Events noted Physical Exam Vital Signs: Vital Signs: Last Vital Signs Temp 97.2 F 12/08/21 11:31 Pulse 77 12/08/21 11:31 Resp 16 12/08/21 11:31 BP 149/61 H 12/08/21 11:31 Pulse Ox 96 12/08/21 11:31 BMI result Body Mass Index 34.5 Objective Data Labs CBC & Chem 7: 12/08/21 06:43 12/08/21 06:43 Labs: Laboratory Results - last 24 hr 12/07/21 12/07/21 12/08/21 16:15 19:49 06:43 Hgb Hct Sodium Potassium Chloride Carbon Dioxide Anion Gap BUN Creatinine 2.02 H Estim Creat Clear Calc 36.6 Estimated GFR 33 POC Glucose 325 H 360 H* Random Glucose Calcium 12/08/21 12/08/21 12/08/21 06:43 06:43 07:10 Hgb 12.0 L D Hct 39.7 L D Sodium 147 H Potassium 4.2 Chloride 108 Carbon Dioxide 25 Anion Gap 18 BUN 35 H Creatinine 2.01 H Estim Creat Clear Calc 36.8 Estimated GFR 33 POC Glucose 120 H Random Glucose 108 Calcium 8.8 12/08/21 11:33 Hgb Hct Sodium Potassium Chloride Carbon Dioxide Anion Gap BUN Creatinine Estim Creat Clear Calc Estimated GFR POC Glucose 121 H Random Glucose Calcium Microbiology Microbiology Results: Microbiology 12/02/21 06:23 Blood - Venous Blood Culture - Final No growth after 5 days. 12/02/21 06:24 Blood - Venous Blood Culture - Final No growth after 5 days. Procedures Date of Service Date of Service: 12/08/21 Assessment & Plan Assessment and plan (1) Acute kidney injury: Status: Acute Plan ?KIMBERLEY, Non-Oliguric: and Hypernatremia Normal renal function at BL s/p CTA chest to r/o PE performed on 12/02 with subsequent rise in S-Cr Consistent with URIEL. UA reviewed. Relatively bland with noted proteinuria. Some component of volume depletion. Received IVFs Hold nsaids, acei/arb, IV contrast, renal dosing abx. Renal panel Abdominal US did not reveal hydronephrosis of right kidney. Left kidney not visualized. Hypernatremia - ~ Increase PO water intake NAGMA ? stands corrected. Time Spent With Patient Time: Total time spent is greater than 50% in coordination of care (as documented) at patient's floor/unit and/or counseling patient: Progress Note: Quality Stroke Does the patient have a stroke diagnosis?: No
[2021-12-08] MEDS: Acetaminophen 325 MG TABLET 650 MG PO ×2 (15:13→21:36)
[2021-12-08 15:59] LABS: Glucose, Whole Blood 258 mg/dL (60-115)
[2021-12-08] MEDS: Insulin Lispro 100 UNIT/ML 3 ML VIAL SUBCUT ×2 (16:10→21:35)
[2021-12-08 17:42] LABS: B Type Natriuretic Peptide 48 pg/mL (<100)
[2021-12-08 20:55] LABS: Glucose, Whole Blood 306 mg/dL (60-115)
[2021-12-08] MEDS: QUEtiapine Fumarate 25 MG TABLET PO (21:35)
[2021-12-09] VITALS (8 sets, daily range): BP systolic 145–168; BP diastolic 59–74; PULSE 59–69; RESP 16–20; TEMP 35.8–36.9; O2SAT 95–96; BMI 34.3
[2021-12-09] MEDS: Piperacillin Sodium/Tazobactam 3.375 GM in 0.9 % Sodium Chloride 50 ML IV ×4 (02:46→20:46)
[2021-12-09] MEDS: Acetaminophen 325 MG TABLET 650 MG PO ×3 (05:39→21:45)
[2021-12-09 06:25] LABS: Hematocrit 38.7 % (42.0-52.0); Hemoglobin 11.9 g/dl (14.0-18.0); Mean Corpuscular HGB Conc 30.7 g/dl (31.0-36.0); Mean Corpuscular Hemoglobin 26.3 pg (27.0-33.0); Mean Corpuscular Volume 85.6 fL (80.0-98.0); Mean Platelet Volume 9.2 fL (9.4-12.4); Platelet Count 262 X10*3/uL (160-400); Red Blood Count 4.52 X10*6/uL (4.60-5.80); Red Cell Distribution Width 18.2 % (11.0-16.0)
[2021-12-09 06:37] LABS: Creatinine Clr Calc Pharmacy 37.5; Estimated Glomerular Filt Rate 33
[2021-12-09 06:40] LABS: Alanine Aminotransferase 46 U/L (0-40); Albumin Level 3.9 g/dL (3.5-5.0); Alkaline Phosphatase 70 U/L (39-117); Anion Gap 15 (12-20); Aspartate Amino Transferase 28 U/L (5-37); Bilirubin Direct 0.3 mg/dL (0.0-0.5); Bilirubin Total 0.6 mg/dL (0.0-1.0); Blood Urea Nitrogen 39 mg/dL (9-16); Calcium 8.6 mg/dL (8.4-10.2); Carbon Dioxide 27 mmol/L (22-29); Chloride 107 mmol/L (96-108); Creatinine Clr Calc Pharmacy 37.5; Estimated Glomerular Filt Rate 33; Glucose Random 116 mg/dL (60-115); Potassium 4.1 mmol/L (3.3-5.1); Sodium 145 mmol/L (135-145); Total Protein 6.2 g/dL (6.5-8.0)
[2021-12-09] MEDS: azaTHIOprine 50 MG TABLET PO ×3 (07:51→20:41)
[2021-12-09] MEDS: 0.9 % Sodium Chloride Flush 3 ML SYRINGE IVFLUSH ×3 (07:51→20:42)
[2021-12-09] MEDS: dexAMETHasone sod phosphate 4 MG/ML VIAL 6 MG IVPUSH (07:51)
[2021-12-09] MEDS: Sodium Bicarbonate 650 MG TABLET PO (07:52)
[2021-12-09] MEDS: Gabapentin 100 MG CAPSULE 200 MG PO ×2 (07:54→20:41)
[2021-12-09] MEDS: Heparin Sodium,Porcine 5,000 UNIT/ML VIAL 5000 UNIT SUBCUT ×2 (07:54→20:43)
[2021-12-09] MEDS: mycophenolate mofetiL 250 MG CAPSULE 500 MG PO ×2 (07:55→20:41)
[2021-12-09] MEDS: Atorvastatin Calcium 80 MG TABLET PO (07:55)
[2021-12-09] MEDS: glipiZIDE 5 MG TABLET PO ×2 (07:55→20:42)
[2021-12-09] MEDS: amLODIPine Besylate 10 MG TABLET PO (07:55)
[2021-12-09] MEDS: Clotrimazole 1 % Cream 15 GM TUBE 1 APPL TOPICAL ×2 (07:56→20:47)
[2021-12-09] MEDS: Loperamide HCl 2 MG CAPSULE PO ×2 (07:56→20:42)
[2021-12-09 08:02] LABS: Glucose, Whole Blood 98 mg/dL (60-115)
--- NOTE | 2021-12-09 10:47 | PM.PNNEP ---
Subjective Subjective Date of Service: 12/10/21 Interval history: Events noted Physical Exam Vital Signs: Vital Signs: Last Vital Signs Temp 97.5 F 12/09/21 07:28 Pulse 61 12/09/21 07:28 Resp 20 12/09/21 07:28 BP 154/70 H 12/09/21 07:28 Pulse Ox 96 12/09/21 07:28 BMI result Body Mass Index 34.3 Objective Data Labs CBC & Chem 7: 12/10/21 07:33 12/10/21 07:33 Labs: Laboratory Results - last 24 hr 12/08/21 12/08/21 12/08/21 11:33 15:48 16:59 WBC RBC Hgb Hct MCV MCH MCHC RDW Plt Count MPV Absolute Nucleated RBC Nucleated RBC % (auto) Sodium Potassium Chloride Carbon Dioxide Anion Gap BUN Creatinine Estim Creat Clear Calc Estimated GFR POC Glucose 121 H 258 H Random Glucose Calcium Total Bilirubin Direct Bilirubin AST ALT Alkaline Phosphatase B-Natriuretic Peptide 48 Total Protein Albumin 12/08/21 12/09/21 12/09/21 19:36 06:09 06:09 WBC 6.0 RBC 4.52 L D Hgb 11.9 L Hct 38.7 L MCV 85.6 MCH 26.3 L MCHC 30.7 L RDW 18.2 H Plt Count 262 MPV 9.2 L Absolute Nucleated RBC 0.000 Nucleated RBC % (auto) 0.0 Sodium Potassium Chloride Carbon Dioxide Anion Gap BUN Creatinine 1.97 H Estim Creat Clear Calc 37.5 Estimated GFR 33 POC Glucose 306 H Random Glucose Calcium Total Bilirubin Direct Bilirubin AST ALT Alkaline Phosphatase B-Natriuretic Peptide Total Protein Albumin 12/09/21 12/09/21 06:09 07:26 WBC RBC Hgb Hct MCV MCH MCHC RDW Plt Count MPV Absolute Nucleated RBC Nucleated RBC % (auto) Sodium 145 Potassium 4.1 Chloride 107 Carbon Dioxide 27 Anion Gap 15 BUN 39 H Creatinine 1.97 H Estim Creat Clear Calc 37.5 Estimated GFR 33 POC Glucose 98 Random Glucose 116 H Calcium 8.6 Total Bilirubin 0.6 Direct Bilirubin 0.3 AST 28 ALT 46 H Alkaline Phosphatase 70 D B-Natriuretic Peptide Total Protein 6.2 L Albumin 3.9 D Microbiology Microbiology Results: Microbiology 12/02/21 06:23 Blood - Venous Blood Culture - Final No growth after 5 days. 12/02/21 06:24 Blood - Venous Blood Culture - Final No growth after 5 days. Procedures Date of Service Date of Service: 12/09/21 Assessment & Plan Assessment and plan (1) Acute kidney injury: Status: Acute Plan ?KIMBERLEY, Non-Oliguric: and Hypernatremia Normal renal function at BL s/p CTA chest to r/o PE performed on 12/02 with subsequent rise in S-Cr Possible URIEL. But no recovery yet UA reviewed. Relatively bland with noted proteinuria.0.47 Possible tubular injury in a setting of Covid-19 Hold nsaids, acei/arb, IV contrast, renal dosing abx. Abdominal US did not reveal hydronephrosis of right kidney. Left kidney not visualized. Hypernatremia - ~ Increase PO water intake NAGMA ? stands corrected. Time Spent With Patient Time: Total time spent is greater than 50% in coordination of care (as documented) at patient's floor/unit and/or counseling patient: Progress Note: Quality Stroke Does the patient have a stroke diagnosis?: No
[2021-12-09 11:44] LABS: Glucose, Whole Blood 125 mg/dL (60-115)
--- NOTE | 2021-12-09 16:06 | HO.PM.IMPN ---
Subjective Subjective Date of Service: 12/09/21 Interval History: no acute issues overnight Review of Systems denies chest pain Denies shortness of breath Denies nausea vomiting diarrhea Denies fever chills Physical Exam Vital Signs: Vital Signs: Last Vital Signs Temp 98.4 F 12/09/21 15:51 Pulse 67 12/09/21 15:51 Resp 17 12/09/21 15:51 BP 165/71 H 12/09/21 15:51 Pulse Ox 95 12/09/21 15:51 BMI result Body Mass Index 34.3 Const: Other: no acute distress; confused but easily reoriented Resp: Other: diminished at bases with scant crackles noted. Mild diffuse expiratory wheezes Cardio: Other: no S4; positive S1-S2; no S3 murmurs rubs gallops GI: Other: soft nontender nondistended with normoactive bowel sounds Extrem: Other: no edema bilateral Objective Data Active Medications Acetaminophen (Acetaminophen 325 Mg Tablet) 650 mg PO Q6H PRN PRN Reason: Pain, Mild (Pain Scale 1-3) Last Admin: 12/09/21 13:53 Dose: 650 mg Documented by: SHERRY Albuterol Sulfate (Albuterol Sulfate 90 Mcg 8 Gm Inhaler) 1 puff INHALE RQ4H [facility] Last Admin: 12/09/21 11:30 Dose: Not Given Documented by: MARTI Non-Admin Reason: See Note Amlodipine Besylate (Amlodipine Besylate 10 Mg Tablet) 10 mg PO DAILY [facility]; Protocol Last Admin: 12/09/21 07:55 Dose: 10 mg Documented by: SHERRY Atorvastatin Calcium (Atorvastatin Calcium 80 Mg Tablet) 80 mg PO DAILY [facility] Last Admin: 12/09/21 07:55 Dose: 80 mg Documented by: SHERRY Azathioprine (Azathioprine 50 Mg Tablet) 50 mg PO TID [facility] Last Admin: 12/09/21 13:53 Dose: 50 mg Documented by: SHERRY Clotrimazole (Clotrimazole 1 % Cream 15 Gm Tube) 1 appl TOPICAL BID [facility]; Protocol Last Admin: 12/09/21 07:56 Dose: 1 appl Documented by: SHERRY Dexamethasone Sodium Phosphate (Dexamethasone Sod Phosphate 4 Mg/Ml Vial) 6 mg IVPUSH DAILY [facility] Last Admin: 12/09/21 07:51 Dose: 6 mg Documented by: SHERRY Dextrose (Dextrose 50 % 25 Gm/50 Ml Syringe) 25 gm IVPUSH Q15M PRN; Protocol PRN Reason: per Hypoglycemia Standing Ord. Docusate Sodium (Docusate Sodium 100 Mg Capsule) 100 mg PO DAILY PRN PRN Reason: Constipation Gabapentin (Gabapentin 100 Mg Capsule) 200 mg PO BID [facility] Last Admin: 12/09/21 07:54 Dose: 200 mg Documented by: SHERRY Glipizide (Glipizide 5 Mg Tablet) 5 mg PO BID [facility] Last Admin: 12/09/21 07:55 Dose: 5 mg Documented by: SHERRY Glucose (Glucose Gel 15 Gm Gel..Gram.) 15 gm PO Q15M PRN; Protocol PRN Reason: per Hypoglycemia Standing Ord. Heparin Sodium (Porcine) (Heparin Sodium,Porcine 5,000 Unit/Ml Vial) 5,000 unit SUBCUT Q12H [facility] Last Admin: 12/09/21 07:54 Dose: 5,000 unit Documented by: SHERRY Piperacillin Sod/Tazobactam (Sod 3.375 gm/ Sodium Chloride) 50 mls @ 100 mls/hr IV Q6H [facility] Last Infusion: 12/09/21 15:15 Dose: 0 mls/hr Documented by: SHERRY Insulin Human Lispro (Insulin Lispro 100 Unit/Ml 3 Ml Vial) 0 unit SUBCUT QIDACHS [facility]; Protocol Last Admin: 12/09/21 11:30 Dose: Not Given Documented by: SHERRY Non-Admin Reason: No Insulin Coverage Loperamide HCl (Loperamide Hcl 2 Mg Capsule) 2 mg PO BID [facility] Last Admin: 12/09/21 07:56 Dose: 2 mg Documented by: SHERRY Mycophenolate Mofetil (Mycophenolate Mofetil 250 Mg Capsule) 500 mg PO BID [facility] Last Admin: 12/09/21 07:55 Dose: 500 mg Documented by: SHERRY Ondansetron HCl (Ondansetron Hcl 4 Mg/2 Ml Vial) 4 mg IVPUSH Q8H PRN PRN Reason: Nausea and Vomiting Last Admin: 12/07/21 21:47 Dose: 4 mg Documented by: SHASHI Pharmacy Consult (Consult Rx Perform Med Rec) 1 each MISCELLANE ONCE PRN PRN Reason: Consult order Pharmacy Consult (Consult Rx Vancomycin Dosing) 1 each MISCELLANE DAILY PRN PRN Reason: Consult order Pyridostigmine [place] (Pyridostigmine [place] 60 Mg Tablet) 60 mg PO QID [facility] Last Admin: 12/09/21 13:53 Dose: 60 mg Documented by: SHERRY Quetiapine Fumarate (Quetiapine Fumarate 25 Mg Tablet) 25 mg PO BEDTIME [facility] Last Admin: 12/08/21 21:35 Dose: 25 mg Documented by: SHASHI Sodium Bicarbonate (Sodium Bicarbonate 650 Mg Tablet) 650 mg PO DAILY [facility] Last Admin: 12/09/21 07:52 Dose: 650 mg Documented by: SHERRY Sodium Chloride (0.9 % Sodium Chloride Flush 3 Ml Syringe) 3 ml IVFLUSH QSHIFT [facility] Last Admin: 12/09/21 15:46 Dose: 3 ml Documented by: SHERRY Valsartan (Valsartan 80 Mg Tablet) 80 mg PO DAILY [facility]; Protocol Last Admin: 12/05/21 08:13 Dose: 80 mg Documented by: ARGELIA Labs CBC & Chem 7: 12/09/21 06:09 12/09/21 06:09 Labs: Laboratory Results - last 24 hr 12/02/21 12/03/21 12/04/21 06:23 07:18 21:03 MCV MCH MCHC RDW Plt Count MPV Absolute Nucleated RBC Nucleated RBC % (auto) Anion Gap Creatinine 0.83 1.04 2.06 H Estim Creat Clear Calc Estimated GFR POC Glucose Random Glucose Calcium Total Bilirubin Direct Bilirubin AST ALT Alkaline Phosphatase B-Natriuretic Peptide Total Protein Albumin 12/05/21 12/05/21 12/06/21 06:32 10:06 06:29 MCV MCH MCHC RDW Plt Count MPV Absolute Nucleated RBC Nucleated RBC % (auto) Anion Gap Creatinine 1.87 H 1.90 H Cancelled Estim Creat Clear Calc Estimated GFR POC Glucose Random Glucose Calcium Total Bilirubin Direct Bilirubin AST ALT Alkaline Phosphatase B-Natriuretic Peptide Total Protein Albumin 12/06/21 12/07/21 12/08/21 06:29 06:56 06:43 MCV MCH MCHC RDW Plt Count MPV Absolute Nucleated RBC Nucleated RBC % (auto) Anion Gap Creatinine 1.97 H 1.94 H 2.02 H Estim Creat Clear Calc Estimated GFR POC Glucose Random Glucose Calcium Total Bilirubin Direct Bilirubin AST ALT Alkaline Phosphatase B-Natriuretic Peptide Total Protein Albumin 12/08/21 12/08/21 12/08/21 06:43 16:59 19:36 MCV MCH MCHC RDW Plt Count MPV Absolute Nucleated RBC Nucleated RBC % (auto) Anion Gap Creatinine 2.01 H Estim Creat Clear Calc Estimated GFR POC Glucose 306 H Random Glucose Calcium Total Bilirubin Direct Bilirubin AST ALT Alkaline Phosphatase B-Natriuretic Peptide 48 Total Protein Albumin 12/09/21 12/09/21 12/09/21 06:09 06:09 06:09 MCV 85.6 MCH 26.3 L MCHC 30.7 L RDW 18.2 H Plt Count 262 MPV 9.2 L Absolute Nucleated RBC 0.000 Nucleated RBC % (auto) 0.0 Anion Gap 15 Creatinine 1.97 H 1.97 H Estim Creat Clear Calc 37.5 37.5 Estimated GFR 33 33 POC Glucose Random Glucose 116 H Calcium 8.6 Total Bilirubin 0.6 Direct Bilirubin 0.3 AST 28 ALT 46 H Alkaline Phosphatase 70 D B-Natriuretic Peptide Total Protein 6.2 L Albumin 3.9 D 12/09/21 12/09/21 07:26 11:14 MCV MCH MCHC RDW Plt Count MPV Absolute Nucleated RBC Nucleated RBC % (auto) Anion Gap Creatinine Estim Creat Clear Calc Estimated GFR POC Glucose 98 125 H Random Glucose Calcium Total Bilirubin Direct Bilirubin AST ALT Alkaline Phosphatase B-Natriuretic Peptide Total Protein Albumin Assessment and Plan (1) Pneumonia due to COVID-19 virus: Status: Acute (2) Acute kidney injury: Status: Acute (3) Diabetes mellitus, type 2: Status: Acute (4) Myasthenia gravis: Status: Acute Plan 71-year-old male with a past medical history of hypertension, hyperlipidemia, diabetes, myasthenia gravis, chronic diarrhea presented to the hospital with a chief complaint of shortness of breath/generalized weakness.? Patient was COVID-19 tested positive on 11/26.? Symptoms have been gradually improving with therapies 1.Acute hypoxemic respiratory failure/COVID-19 pneumonia - continue IV Zosyn/IV dexamethasone(01/11) - titrate O2 to maintain sat greater than 90% - p.r.n. nebs 2. KIMBERLEY( query URIEL after CT chest) - no significant improvement -avoid nephrotoxins -follow renals/divalents 3.Diabetes II -continue to hold metformin - lispro correctional scale 4.Hypertension - acceptable control on current therapies - adjust as indicated 5.Myasthenia gravis -azathioprine, mycophenolate, pyridostigmine Heparin subQ Full Code requires inpatient hospitalization for completion of IV dexamethasone/ antibiotics for treatment of pneumonia Quality Stroke Does the patient have a stroke diagnosis?: No VTE Prior VTE?: No VTE Risk Level:: Medical - moderate - high VTE Device Contraindication: Treatment Not Indicated VTE Drug Contraindication: N/A - Med Ordered
[2021-12-09 16:38] LABS: Glucose, Whole Blood 224 mg/dL (60-115)
[2021-12-09] MEDS: Insulin Lispro 100 UNIT/ML 3 ML VIAL SUBCUT ×2 (16:44→20:43)
[2021-12-09] MEDS: Albuterol Sulfate 90 MCG 8 GM INHALER 1 PUFF INHALE (20:13)
[2021-12-09 20:24] LABS: Glucose, Whole Blood 269 mg/dL (60-115)
[2021-12-09] MEDS: QUEtiapine Fumarate 25 MG TABLET PO (20:42)
[2021-12-10 03:17] VITALS: BP 143/72; PULSE 62; RESP 15; TEMP 35.9; O2SAT 93
[2021-12-10 07:17] LABS: Glucose, Whole Blood 134 mg/dL (60-115)
[2021-12-10 07:41] VITALS: BP 175/71; PULSE 67; RESP 20; TEMP 36.2; O2SAT 95
[2021-12-10 07:55] LABS: MANUAL DIFF FLAG NO
[2021-12-10 08:04] LABS: Eosinophils Percent Auto 0.5 % (0-4); Hematocrit 40.1 % (42.0-52.0); Hemoglobin 12.6 g/dl (14.0-18.0); Imm Gran Abs Auto 0.11 X10*3/uL (0.00-0.03); Imm Gran Pct Auto 1.8 % (0.0-0.4); Lymphocytes Absolute Auto 0.6 X10*3/uL (1.2-4.9); Lymphocytes Percent Auto 10.1 % (20-40); Mean Corpuscular HGB Conc 31.4 g/dl (31.0-36.0); Mean Corpuscular Hemoglobin 26.8 pg (27.0-33.0); Mean Corpuscular Volume 85.3 fL (80.0-98.0); Mean Platelet Volume 9.7 fL (9.4-12.4); Monocytes Absolute Auto 0.3 X10*3/uL (0.1-1.2); Monocytes Percent Auto 5.4 % (2-11); Neutrophils Absolute Auto 5.1 x10*3/uL (2.0-8.3); Neutrophils Percent Auto 82.2 % (45-73); Platelet Count 288 X10*3/uL (160-400); Red Cell Distribution Width 18.4 % (11.0-16.0); White Blood Count 6.3 X10*3/uL (4.8-10.8)
[2021-12-10 08:16] LABS: Alanine Aminotransferase 40 U/L (0-40); Albumin Level 3.9 g/dL (3.5-5.0); Alkaline Phosphatase 64 U/L (39-117); Anion Gap 16 (12-20); Aspartate Amino Transferase 25 U/L (5-37); Bilirubin Total 0.5 mg/dL (0.0-1.0); Blood Urea Nitrogen 38 mg/dL (9-16); Calcium 8.6 mg/dL (8.4-10.2); Carbon Dioxide 23 mmol/L (22-29); Chloride 109 mmol/L (96-108); Creatinine Clr Calc Pharmacy 44.5; Estimated Glomerular Filt Rate 41; Glucose Fasting 129 mg/dL (60-99); Potassium 4.1 mmol/L (3.3-5.1); Sodium 144 mmol/L (135-145); Total Protein 6.4 g/dL (6.5-8.0)
--- NOTE | 2021-12-10 10:29 | PM.PNNEP ---
Subjective Subjective Date of Service: 12/10/21 Interval history: no acute issues overnight Physical Exam Vital Signs: Vital Signs: Last Vital Signs Temp 97.2 F 12/10/21 07:41 Pulse 67 12/10/21 07:41 Resp 20 12/10/21 07:41 BP 175/71 H 12/10/21 07:41 Pulse Ox 95 12/10/21 07:41 O2 Del Method 12/10/21 07:41 O2 Flow Rate 95 12/09/21 15:51 BMI result Body Mass Index 34.3 Objective Data Labs CBC & Chem 7: 12/10/21 07:33 12/10/21 07:33 Labs: Laboratory Results - last 24 hr 12/09/21 12/09/21 12/09/21 11:14 15:54 20:00 WBC RBC Hgb Hct MCV MCH MCHC RDW Plt Count MPV Immature Gran % (Auto) Neut % (Auto) Lymph % (Auto) [place] % (Auto) Eos % (Auto) Baso % (Auto) Lymph # (Auto) [place] # (Auto) Eos # (Auto) Baso # (Auto) Abs Immat Gran (auto) Absolute Neuts (auto) Absolute Nucleated RBC Nucleated RBC % (auto) Sodium Potassium Chloride Carbon Dioxide Anion Gap BUN Creatinine Estim Creat Clear Calc Estimated GFR POC Glucose 125 H 224 H 269 H Fasting Glucose Calcium Total Bilirubin AST ALT Alkaline Phosphatase Total Protein Albumin 12/10/21 12/10/21 12/10/21 07:11 07:33 07:33 WBC 6.3 RBC 4.70 Hgb 12.6 L Hct 40.1 L MCV 85.3 MCH 26.8 L MCHC 31.4 RDW 18.4 H Plt Count 288 MPV 9.7 Immature Gran % (Auto) 1.8 H Neut % (Auto) 82.2 H Lymph % (Auto) 10.1 L [place] % (Auto) 5.4 Eos % (Auto) 0.5 Baso % (Auto) 0.0 Lymph # (Auto) 0.6 L [place] # (Auto) 0.3 Eos # (Auto) 0.0 Baso # (Auto) 0.0 Abs Immat Gran (auto) 0.11 H Absolute Neuts (auto) 5.1 Absolute Nucleated RBC 0.000 Nucleated RBC % (auto) 0.0 Sodium 144 Potassium 4.1 Chloride 109 H Carbon Dioxide 23 Anion Gap 16 BUN 38 H Creatinine 1.66 H Estim Creat Clear Calc 44.5 Estimated GFR 41 POC Glucose 134 H Fasting Glucose 129 H Calcium 8.6 Total Bilirubin 0.5 AST 25 ALT 40 Alkaline Phosphatase 64 Total Protein 6.4 L Albumin 3.9 Microbiology Microbiology Results: Microbiology 12/02/21 06:23 Blood - Venous Blood Culture - Final No growth after 5 days. 12/02/21 06:24 Blood - Venous Blood Culture - Final No growth after 5 days. Procedures Date of Service Date of Service: 12/10/21 Assessment & Plan Assessment and plan (1) Acute kidney injury: Status: Acute Plan ?KIMBERLEY, Non-Oliguric: and Hypernatremia Normal renal function at BL s/p CTA chest to r/o PE performed on 12/02 with subsequent rise in S-Cr Possible URIEL. Marginal improvement in creatinine 1.66 today UA reviewed. Relatively bland with noted proteinuria.0.47 Possible tubular injury in a setting of Covid-19 Hold nsaids, acei/arb, IV contrast, renal dosing abx. Abdominal US did not reveal hydronephrosis of right kidney. Left kidney not visualized. Hypernatremia - ~ Increase PO water intake NAGMA ? stands corrected. Time Spent With Patient Time: Total time spent is greater than 50% in coordination of care (as documented) at patient's floor/unit and/or counseling patient: Progress Note: Quality Stroke Does the patient have a stroke diagnosis?: No
[2021-12-10] MEDS: dexAMETHasone sod phosphate 4 MG/ML VIAL 6 MG IVPUSH (10:48)
[2021-12-10] MEDS: Acetaminophen 325 MG TABLET 650 MG PO (10:53)
[2021-12-10] MEDS: Gabapentin 100 MG CAPSULE 200 MG PO (10:54)
[2021-12-10] MEDS: mycophenolate mofetiL 250 MG CAPSULE 500 MG PO (10:54)
[2021-12-10] MEDS: azaTHIOprine 50 MG TABLET PO (10:54)
[2021-12-10] MEDS: amLODIPine Besylate 10 MG TABLET PO (10:55)
[2021-12-10] MEDS: glipiZIDE 5 MG TABLET PO (10:55)
[2021-12-10] MEDS: Sodium Bicarbonate 650 MG TABLET PO (10:55)
[2021-12-10] MEDS: Atorvastatin Calcium 80 MG TABLET PO (10:56)
[2021-12-10] MEDS: Loperamide HCl 2 MG CAPSULE PO (10:56)
[2021-12-10] MEDS: Heparin Sodium,Porcine 5,000 UNIT/ML VIAL 5000 UNIT SUBCUT (10:59)
[2021-12-10] MEDS: 0.9 % Sodium Chloride Flush 3 ML SYRINGE IVFLUSH (10:59)
[2021-12-10 11:04] LABS: Glucose, Whole Blood 112 mg/dL (60-115)
--- NOTE | 2021-12-10 11:09 | MHC.CM.PN ---
Per ROUNDS discussion, Patient will be medically cleared for dc to home today, with services. A referral has been made to [facility] GRANADOS, who has been made aware of today's dc. IMM to be addressed with Patient over the phone r/t (+) Covid.
[2021-12-10 11:23] VITALS: BP 157/72; PULSE 66; RESP 18; TEMP 36.6; O2SAT 95
--- NOTE | 2021-12-10 12:18 | PM.DS ---
DS: Providers Provider Date of Service: 12/10/21 Date of admission: 12/02/21 20:44 Date of discharge: 12/10/21 Primary care physician: Justino Lara MD Consults: 12/02/21 20:19 Consult to Infectious Diseases Routine Consulting Provider: Diana Montanez Reason for consultation: sepsis , covid vs HCAP? 12/05/21 09:12 Consult to Nephrology Routine Consulting Provider: Tobias Flores Reason for consultation: jared DS: Diagnosis Discharge Diagnosis (1) Acute kidney injury: Status: Acute (2) Pneumonia due to COVID-19 virus: Status: Acute (3) Diabetes mellitus, type 2: Status: Acute DS: Summary Hospital Course Hospital Course: 71-year-old male with past medical history of hypertension, hyperlipidemia, diabetes, myasthenia gravis, chronic diarrhea who presented to the hospital with complaints of persistent illness.? Patient initially admitted to the hospital on 11/29, discharged on 12/01 for COVID pneumonia.? Patient tested positive for COVID-19 on 11/26 with progressively feeling more short of breath, constant nausea and vomiting.? On discharge on 12/01 patient was hemodynamically stable satting 92% on 2 L of oxygen.? He was sent home with VNA and PT service. He returns today stating that he continues to not feel well, he has had progressively worsening shortness of breath, he has constant nausea and vomiting.? He is unable to keep anything down, low appetite.? Denies any chest pain, no abdominal pain, known diarrhea or constipation, no urinary symptoms at this time.? No lower extremity edema.? On arrival to the ED patient's vitals were significant for temp of 98.3 degrees, heart rate of 107, respiratory rate of 23, blood pressure 196/76, dropping to 90% oxygen on room air. Labs are significant for WBC count of 6.7, hemoglobin of 13, lactic acid of 3.0, AST of 67, ALT of 62, UA negative for infection, COVID-[address] angiogram done on 11/30 showed multifocal ground-glass opacities.? Chest x-ray done on this admission shows hazy densities laterally in the right middle lung and in the left lower lung which are indeterminate and could reflect subsegmental attacks is has or scarring.? Developing infiltrate cannot be ruled out. Hospital Course admitted to COVID unit. Seen in consultation by ID who recommened Decadron times 10 days. Approximately 3 days after admission serum creatinine boubacar prompting a renal consult. Renal felt this was a contrast induced nephropathy and should be treated conservatively. He is maintained on IV fluids in his serum creatinine has slowly been responding. He was able to be weaned off of oxygen to room air and was seen by Physical therapy who recommended home with outpatient physical therapy. At this time he is medically acceptable for discharge. This has been discussed at length with his Sheryl in daughter Lucila who both are in agreement. Time Spent with Patient Time attestation: Total time spent providing and/or coordinating discharge services: Discharge coordination time: Greater than 30 minutes Quality: Safe Use of Opioids Does Pt have an Active Cancer Diagnosis on the Problem List?: No Quality: Stroke Does the patient have a stroke diagnosis?: No Physical Exam Vital Signs: Vital Signs: Last Vital Signs Temp 97.8 F 12/10/21 11:23 Pulse 66 12/10/21 11:23 Resp 18 12/10/21 11:23 BP 157/72 H 12/10/21 11:23 Pulse Ox 95 12/10/21 11:23 O2 Del Method 12/10/21 11:23 O2 Flow Rate 95 12/09/21 15:51 BMI result Body Mass Index 34.3 Const: Other: no acute distress; confused but easily reoriented Resp: Other: diminished at bases with scant crackles noted. Mild diffuse expiratory wheezes Cardio: Other: no S4; positive S1-S2; no S3 murmurs rubs gallops GI: Other: soft nontender nondistended with normoactive bowel sounds Extrem: Other: no edema bilateral DS: Data Data Completed and Pending Labs on day of discharge: Laboratory Results - last 24 hr 12/09/21 12/09/21 12/10/21 15:54 20:00 07:11 WBC RBC Hgb Hct MCV MCH MCHC RDW Plt Count MPV Immature Gran % (Auto) Neut % (Auto) Lymph % (Auto) [place] % (Auto) Eos % (Auto) Baso % (Auto) Lymph # (Auto) [place] # (Auto) Eos # (Auto) Baso # (Auto) Abs Immat Gran (auto) Absolute Neuts (auto) Absolute Nucleated RBC Nucleated RBC % (auto) Sodium Potassium Chloride Carbon Dioxide Anion Gap BUN Creatinine Estim Creat Clear Calc Estimated GFR POC Glucose 224 H 269 H 134 H Fasting Glucose Calcium Total Bilirubin AST ALT Alkaline Phosphatase Total Protein Albumin 12/10/21 12/10/21 12/10/21 07:33 07:33 10:57 WBC 6.3 RBC 4.70 Hgb 12.6 L Hct 40.1 L MCV 85.3 MCH 26.8 L MCHC 31.4 RDW 18.4 H Plt Count 288 MPV 9.7 Immature Gran % (Auto) 1.8 H Neut % (Auto) 82.2 H Lymph % (Auto) 10.1 L [place] % (Auto) 5.4 Eos % (Auto) 0.5 Baso % (Auto) 0.0 Lymph # (Auto) 0.6 L [place] # (Auto) 0.3 Eos # (Auto) 0.0 Baso # (Auto) 0.0 Abs Immat Gran (auto) 0.11 H Absolute Neuts (auto) 5.1 Absolute Nucleated RBC 0.000 Nucleated RBC % (auto) 0.0 Sodium 144 Potassium 4.1 Chloride 109 H Carbon Dioxide 23 Anion Gap 16 BUN 38 H Creatinine 1.66 H Estim Creat Clear Calc 44.5 Estimated GFR 41 POC Glucose 112 Fasting Glucose 129 H Calcium 8.6 Total Bilirubin 0.5 AST 25 ALT 40 Alkaline Phosphatase 64 Total Protein 6.4 L Albumin 3.9 Discharge Plan Discharge Patient Disposition: Home Health Service Discharge Diagnosis: pneumonia due to COVID 19 virus Referrals: Estevan Amato [Outside] - 1 Week Justino Lara MD [Primary Care Provider] - 1 Week Discharge Medications: New amoxicillin-pot clavulanate 875-125 mg tablet 1 tab PO BID Qty: 14 0RF Continued rosuvastatin 20 mg tablet 20 mg PO DAILY 90 Days Qty: 90 0RF quetiapine 25 mg tablet 1 tab PO BEDTIME valsartan 80 mg tablet 1 tab PO DAILY azathioprine 50 mg tablet 50 mg PO TID amlodipine 10 mg tablet 10 mg PO DAILY pyridostigmine bromide 60 mg tablet 1 tab PO QID loperamide 2 mg capsule 1 tab PO BID mycophenolate mofetil 500 mg tablet 1 tab PO BID gabapentin 300 mg capsule 1 cap PO BID clotrimazole 1 % cream 1 appl topical BID prednisone 10 mg tablet 25 mg PO DAILY glipizide 5 mg tablet 5 mg PO BID (DME) lancets [FreeStyle Lancets] 28 gauge misc See Rx Instructions Not Applicable DAILY Qty: 100 Rx Instructions: As directed (DME) FreeStyle Lite Strips Strip See Rx Instructions Not Applicable DAILY Qty: 10 Rx Instructions: As directed metformin 500 mg tablet 1,000 mg PO BID Discharge Orders: Discharge Order (Routine); Ordered 12/10/21 Ordered By: Bryce Valentine Diet: advance to usual diet Activity on Discharge: As tolerated Stand Alone Forms: Patient Portal Discharge page Care Plan Goals: complete course of Augmentin as prescribed Health Concerns: follow-up with PCP to follow your kidney function within 1-2 weeks Plan of Treatment: resume all pre-hospital medications Assessment: see discharge summary
[2021-12-10 12:39] VITALS: BP 157/72; PULSE 66; O2SAT 95
--- NOTE | 2021-12-10 12:45 | W.MHC.F2F ---
Service Date Service Date: 12/10/21 Encounter Date of encounter: 12/10/21 Encounter: Inpatient hospitalization Reasons for Services Signs and symptoms assessed: require [place] [facility] for medication management, disease teaching, and monitoring of oxygen saturation Reason for [place] [facility]: medication management, medication treatment and teach disease management Homebound: Leaving the home is medically contraindicated at this time without the asist of a device and/or another person due th the listed conditions above and below. Reason homebound: unsteady gait / fall risk, leg weakness and unable to drive Certification: Based on the above findings, I certify that this patient is confined to the home and needs intermittent [place] [facility] care, physical therapy and/or speech therapy, or continues to need occupational therapy. The patient is under my care, and I have initiated the establishment of the plan of care. The patient will be followed by a physician who will periodically review the plan of care.
== END 2021-12-10 13:30 | disposition home health service (06) | DRG 177 ==
LOC: HO.ED 19:13 → HO.EDOVER 21:02 → HO.IMC 12-07 03:14
PROVIDERS: Internal Medicine; Student in an Organized Health Care Education/Training Program; Admitting Provider Internal Medicine; Emergency Provider Emergency Medicine; PCP Internal Medicine; Visit Provider Hospitalist
DX: U07.1 COVID-19 (principal); G92.8 Other toxic encephalopathy; J96.01 Acute respiratory failure with hypoxia; J12.82 Pneumonia due to coronavirus disease 2019; J69.0 Pneumonitis due to inhalation of food and vomit; N17.9 Acute kidney failure, unspecified; E87.0 Hyperosmolality and hypernatremia; E87.2 Acidosis; J98.11 Atelectasis; J81.1 Chronic pulmonary edema; E11.9 Type 2 diabetes mellitus without complications; G70.00 Myasthenia gravis without (acute) exacerbation; E86.0 Dehydration; N14.1 Nephropathy induced by other drugs, medicaments and biological substances; I10 Essential (primary) hypertension; E78.5 Hyperlipidemia, unspecified; K52.9 Noninfective gastroenteritis and colitis, unspecified; Z28.311 Partially vaccinated for COVID-19; Z87.820 Personal history of traumatic brain injury; Z79.52 Long term (current) use of systemic steroids; Z79.84 Long term (current) use of oral hypoglycemic drugs; Z79.899 Other long term (current) drug therapy
CPT/HCPCS: 36415; 71045; 76775; 80048; 80053; 80076; 80202; 81001; 82043; 82140; 82436; 82565; 82803; 82947; 83605; 83880; 84133; 84145; 84156; 84300; 84484; 85014; 85018; 85025; 85027; 86140; 87040; 87502; 87635; 87640; 87641; 92610; 93005; 94640; 94664; 97116; 97162; 97530; 99285; J1100; J1940; J2270; J2405; J2543; J3370; P9047

== ENCOUNTER 2021-12-23 11:18 | Outpatient (REF) | payer MEDICARE, MEDICAID, SELFPAY ==
--- NOTE | ~2021-12-23 | XR_ITS ---
EXAMINATION: XR CHEST CLINICAL INFORMATION: Positive quantiferon test. COMPARISON: 12/08/2021 chest radiograph. TECHNIQUE: 2 views of the chest were obtained. FINDINGS: Mild linear markings are seen at the left lung base with mild blunting of the left costophrenic angle. The left upper lung field and right lung are clear. The heart and mediastinal structures are unremarkable. XR/XR chest 2V IMPRESSION: Linear markings and blunting of left costophrenic angle predominantly at the level the lingula appears similar if not mildly decreased suggesting chronic changes. No definitive new abnormality. No overt evidence for active tuberculosis.
[2021-12-23 16:15] LABS: Blood Urea Nitrogen 24 mg/dL (9-16); Estimated Glomerular Filt Rate 48
== END 2021-12-23 11:19 | disposition home or self-care (01) ==
LOC: HO.HMGCX 11:18
PROVIDERS: PCP Internal Medicine; Visit Provider Internal Medicine
DX: J18.0 Bronchopneumonia, unspecified organism (principal); R79.9 Abnormal finding of blood chemistry, unspecified
CPT/HCPCS: 36415; 71046; 82565; 84520

== ENCOUNTER 2022-01-21 14:37 | Outpatient (REF) | payer MEDICARE, MEDICAID, SELFPAY ==
[2022-01-21 17:21] LABS: Erythrocyte Sedimentation Rate 75 MM/HR (0-15)
[2022-01-27 19:46] LABS: Acetylcholine Recept. Blocking <15 (<15)
[2022-01-28 00:33] LABS: Acetylcholine Receptor Binding <0.30 nmol/L
[2022-01-31 17:41] LABS: Acetylcholine Recep Modulating 24
== END 2022-01-21 14:38 | disposition home or self-care (01) ==
LOC: HO.HMGCLDS 14:37
PROVIDERS: PCP Internal Medicine; Visit Provider Psychiatry & Neurology Neurology
DX: Z13.89 Encounter for screening for other disorder (principal)
CPT/HCPCS: 36415; 82550; 83519; 85652

== ENCOUNTER 2022-01-23 11:51 | Inpatient (IN) | payer MEDICARE, MEDICAID, SELFPAY ==
[2022-01-23] VITALS (7 sets, daily range): BP systolic 81–119; BP diastolic 44–65; PULSE 108–125; RESP 15–24; TEMP 36.1–36.8; O2SAT 92–97; BMI 35.5
--- NOTE | ~2022-01-23 | XR_ITS ---
EXAMINATION: XR CHEST CLINICAL INFORMATION: Fall with chest pain COMPARISON: December 23, 2021 and studies dating back to August 10, 2019 TECHNIQUE: Frontal view of the chest was obtained. FINDINGS: There is again noted to be pleural parenchymal disease about the left base without significant change. Small focus of groundglass opacity is seen just superior to the minor fissure. No pneumothorax is identified. There appears to be a small left pleural effusion versus pleural scarring. Heart upper limits of normal in size. No evidence of pulmonary edema. XR/XR chest 1V IMPRESSION: Stable appearance of the chest.
--- NOTE | ~2022-01-23 | CT_ITS ---
EXAMINATION: CT HEAD WITHOUT CONTRAST CLINICAL INFORMATION: Status post fall. Confusion. Rule out fracture, bleed. COMPARISON: CT head 10/28/2019, brain MRI of 08/26/2021 TECHNIQUE: Contiguous axial imaging was performed from the skull base to vertex without intravenous administration of contrast. This CT examination was performed using dose optimization techniques as appropriate, variously including the following: *Automated exposure control *Adjustment of mA and/or kV according to patient size (this includes techniques or standardized protocols for targeted exams where dose is matched to indication/reason for exam; i.e. extremities or head) *Use of iterative reconstruction technique DLP: 759 mGy-cm FINDINGS: There is no evidence of acute intracranial hemorrhage or territorial infarction. No abnormal mass effect or midline shift is seen. Daniel to white matter differentiation is well preserved. No extra-axial fluid collections are identified. Ventricles and sulci are age appropriate. Mild global volume loss is noted. Mild bilateral periventricular white matter patchy low-attenuation changes are again noted reflecting changes of chronic microangiopathy. The osseous structures and soft tissues are normal. The mastoid air cells and visualized portions of the paranasal sinuses are well aerated. CT/CT head/brain wo con IMPRESSION: No acute intracranial pathology. There is no evidence of acute intracranial hemorrhage or acute fracture of the osseous calvarium.
--- NOTE | ~2022-01-23 | XR_ITS ---
EXAMINATION: XR HIP, LEFT CLINICAL INFORMATION: Fall with left hip and leg pain COMPARISON: None TECHNIQUE: AP pelvis and 2 views of the left hip. FINDINGS: There is no evidence of acute fracture or diastases of the pelvis. The hip joint spaces appear maintained with some mild collar spurring seen bilaterally. There is degenerative disc disease seen L4-S1. Prominent vascular calcifications are evident. Changes of enthesopathy present. Bilateral greater trochanter spurring is seen. 2 views of the left hip do not demonstrate any evidence of acute fracture or dislocation. Again mild collar spurring is seen. No suspicious lytic or sclerotic lesions are identified. No evidence of femoral head collapse. XR/XR hip LT w PEL1V IMPRESSION: No evidence of acute fracture or diastases the pelvis. No evidence of acute fracture or dislocation of the left hip.
--- NOTE | 2022-01-23 12:29 | ECG_ITS ---
Test Reason : WEAKNESS Blood Pressure : / mmHG Vent. Rate : 125 BPM Atrial Rate : 125 BPM P-R Int : 124 ms QRS Dur : 120 ms QT Int : 336 ms P-R-T Axes : 039 -30 021 degrees QTc Int : 484 ms Sinus tachycardia Left axis deviation Right bundle branch block Abnormal ECG When compared with ECG of 02-DEC-2021 06:09, Right bundle branch block is now Present Referred By: Jose Quevedo Electronically Signed By:Vijay Cullen
[2022-01-23] MEDS: Ketorolac Tromethamine 15 MG/ML VIAL IVPUSH (12:47)
[2022-01-23] MEDS: 0.9 % Sodium Chloride 1,000 ML 999 ML IV (12:47)
[2022-01-23 13:07] LABS: MANUAL DIFF FLAG NO
[2022-01-23 13:11] LABS: Basophils Percent Auto 0.2 % (0-2); Eosinophils Percent Auto 0.2 % (0-4); Hematocrit 32.3 % (42.0-52.0); Hemoglobin 10.1 g/dl (14.0-18.0); Imm Gran Abs Auto 0.31 X10*3/uL (0.00-0.03); Imm Gran Pct Auto 1.8 % (0.0-0.4); Lymphocytes Percent Auto 5.8 % (20-40); Mean Corpuscular HGB Conc 31.3 g/dl (31.0-36.0); Mean Corpuscular Hemoglobin 28.4 pg (27.0-33.0); Mean Corpuscular Volume 90.7 fL (80.0-98.0); Mean Platelet Volume 9.5 fL (9.4-12.4); Monocytes Absolute Auto 0.6 X10*3/uL (0.1-1.2); Monocytes Percent Auto 3.6 % (2-11); NRBC Pct Auto 0.9 /100WBC (0.0-0.2); Neutrophils Absolute Auto 15.3 x10*3/uL (2.0-8.3); Neutrophils Percent Auto 88.4 % (45-73); Platelet Count 283 X10*3/uL (160-400); Red Blood Count 3.56 X10*6/uL (4.60-5.80); Red Cell Distribution Width 21.3 % (11.0-16.0); White Blood Count 17.3 X10*3/uL (4.8-10.8)
[2022-01-23 13:23] LABS: INTERNATIONAL NORM RATIO 1.1 (0.9-1.1); Prothrombin Time 12.3 SEC (10.0-13.1)
[2022-01-23 13:24] LABS: Lactic Acid 12.2 mmol/L (0.5-2.0)
[2022-01-23 13:25] LABS: Partial Thromboplastin Time 30.4 SEC (24.1-38.0)
[2022-01-23 13:26] LABS: Ethanol < 10 mg/dL
[2022-01-23 13:30] LABS: Alanine Aminotransferase 45 U/L (0-40); Albumin Level 3.4 g/dL (3.5-5.0); Alkaline Phosphatase 63 U/L (39-117); Anion Gap 26 (12-20); Aspartate Amino Transferase 44 U/L (5-37); Bilirubin Total 0.8 mg/dL (0.0-1.0); Blood Urea Nitrogen 19 mg/dL (9-16); COVID-19 Test Negative (Negative); Calcium 8.7 mg/dL (8.4-10.2); Carbon Dioxide 15 mmol/L (22-29); Chloride 102 mmol/L (96-108); Creatinine Clr Calc Pharmacy 51.1; Estimated Glomerular Filt Rate 47; Glucose Random 177 mg/dL (60-115); IDNOW Serial# 16C4AD1C; Lipase 28 U/L (8-78); Potassium 4.6 mmol/L (3.3-5.1); Sodium 138 mmol/L (135-145); Total Protein 5.6 g/dL (6.5-8.0)
[2022-01-23 13:33] LABS: Troponin-I High Sensitivity 91.5 ng/L (<3.5-35.0)
[2022-01-23 13:34] LABS: B Type Natriuretic Peptide 40 pg/mL (<100)
[2022-01-23 15:06] LABS: Reflex Lactate? Lactic Acid Added
[2022-01-23 16:01] LABS: Appearance Urine TURBID; Color Urine YELLOW; Glucose Urine UA NEG (NEG); Leukocyte Esterase Urine 1+ (NEG); Nitrite Urine NEG (NEG); PH 5.5 (5.0-8.0); Specific Gravity - Urine >= 1.030 (1.005-1.025); UACC Culture Trigger YES; Urine Blood TRACE (NEG); Urine Ketones 15 MG/DL (NEG); Urine Protein 3+ MG/DL (NEG-TRACE)
[2022-01-23 16:11] LABS: Bacteria Urine 3+ /LPF; Squamous Epithelial Cell Urine 1+ /LPF; WBC Urine 30-49 /HPF (0-4)
[2022-01-23 16:13] LABS: ~Lactic Acid-LAB USE ONLY 7.1 mmol/L (0.5-2.0)
[2022-01-23 16:15] LABS: Amphetamine Screen Urine Not Detected (Not Detect); Barbiturates, Urine Not Detected (Not Detect); Benzodiazepines Screen Urine Not Detected (Not Detect); Cannabinoid Screen Urine Not Detected (Not Detect); Cocaine Screen Urine Not Detected (Not Detect); Fentanyl, urine Not Detected (Not Detect); Opiate Screen Urine Not Detected (Not Detect); Phencyclidine Screen Urine Not Detected (Not Detect)
[2022-01-23] MEDS: cefTRIAXone sodium 1 GM in 0.9 % Sodium Chloride 50 ML IV (16:40)
[2022-01-23] MEDS: 0.9 % Sodium Chloride 1,983 ML 1983 ML IV (16:41)
--- NOTE | 2022-01-23 16:41 | ED_ITS ---
HPI - Syncope General Chief Complaint: Syncope Stated Complaint: CONFUSED,DIFF BREATH,WEAKNESS Time Seen by Provider: 01/23/22 12:20 Source: EMS Mode of arrival: EMS Limitations: other (Patient does not answer questions appropriately and is a very poor informant) History of Present Illness HPI narrative: 71-year-old male who was brought to the emergency department for evaluation of fall at home. The patient was not able to give me any information, he states that his brain does not work since he for 8 minutes and has had trouble thinking since then. I did talk to the patient's daughter Lucila by phone. She states that the patient has been feeling well and was complaining of feeling hot and cold since yesterday. He has also had nausea and several episodes of vomiting. His symptoms got worse today so the daughter called the patient's doctor who advised the daughter to bring the patient to the emergency department. The patient went into the bathroom to urinate and then the daughter heard a thumping sound. When she went into the bathroom the patient was lying half in the bathtub and leaning against a wall. He was awake and able to answer questions. The family was unable to get out of the bath therefore the family called an ambulance and the patient was brought to emergency department for evaluation. The daughter did tell me that the patient had a cardiac arrest in October of 2019 and was resuscitated after approximately 5-8 minutes. He was on a ventilator for approximately 1 month. After this event he did have cognitive issues and she states that his cognitive issues have been getting worse. She states that he has more episodes of confusion and has episodes where he cannot recognize his family members. He has also had visual hallucinations and conversations people that are not in the room. In the emergency department the patient was complaining of pain in his left lower extremity and was requesting pain medications. Related Data Home Medications Medication Instructions Recorded Confirmed amlodipine 10 mg tablet 10 mg PO DAILY 06/02/20 12/02/21 azathioprine 50 mg tablet 50 mg PO TID 06/02/20 12/02/21 pyridostigmine bromide 60 mg tablet 1 tab PO QID 06/02/20 12/02/21 quetiapine 25 mg tablet 1 tab PO BEDTIME 06/02/20 12/02/21 valsartan 80 mg tablet 1 tab PO DAILY 06/02/20 12/02/21 blood sugar diagnostic (FreeStyle #10 ea 03/05/21 05/02/21 Lite Strips) lancets 28 gauge (FreeStyle #100 ea 03/05/21 05/02/21 Lancets) clotrimazole 1 % topical cream 1 appl topical BID 08/24/21 12/02/21 gabapentin 300 mg capsule 1 cap PO BID 08/24/21 12/02/21 loperamide 2 mg capsule 1 tab PO BID 08/24/21 12/02/21 mycophenolate mofetil 500 mg tablet 1 tab PO BID 08/24/21 12/02/21 metformin 500 mg tablet 1,000 mg PO BID 09/02/21 12/02/21 glipizide 5 mg tablet 5 mg PO BID 11/30/21 12/02/21 prednisone 10 mg tablet 25 mg PO DAILY 11/30/21 12/02/21 Previous Rx's Medication Instructions Recorded amoxicillin 875 mg-potassium 1 tab PO BID #14 tabs 12/10/21 clavulanate 125 mg tablet rosuvastatin 20 mg tablet 20 mg PO DAILY 90 days #90 tabs 01/12/22 Allergies Allergy/AdvReac Type Severity Reaction Status Date / Time No Known Allergies Allergy Verified 09/02/21 14:18 [No Known Allergies*] Review of Systems Review of Systems: Yes all other systems are reviewed and are negative [facility] Past Medical History [facility] Narrative: Past medical history: Reviewed below, patient had a cardiac arrest October 2019 and was on a ventilator for approximately 1 month, patient has cognitive issues since this event. Social history: Patient lives at home with his and daughter, he denies tobacco, alcohol and drug use. Medical History Aspiration pneumonia Diabetes Diabetes mellitus, type 2 Erythema of lower extremity Hypercholesteremia Hypertension Intractable nausea and vomiting Myasthenia gravis Myasthenia gravis Myasthenia gravis Myocardial infarction Obesity TBI (traumatic brain injury) Family History Family History Other No family history of coronary artery disease Social History Social History Household Members: Spouse Housing: House Do you presently have visiting nurse or other home services: Yes Unable to assess alcohol history related to: Unknown Alcohol intake: never Patient Tobacco Use Status: Never used Tobacco Advance Directives: Yes Advance Directives on File: Yes Advance Directives Date on File: 05/05/21 service: No Current occupational status: retired Physical Exam Vital Signs: Vital Signs: Last Vital Signs Temp 98.3 F 01/23/22 16:14 Pulse 116 H 01/23/22 16:14 Resp 24 H 01/23/22 16:14 BP 99/44 L 01/23/22 16:14 Pulse Ox 95 01/23/22 16:14 O2 Del Method 01/23/22 16:14 O2 Flow Rate 2 01/23/22 16:14 BMI result Body Mass Index 35.5 Const: Other: Awake, alert, male patient, does not appear to be in distress, he is complaining of pain in his left lower extremity hip area and was requesting pain medications, he is a poor informant and does not answer questions appropriately HEENT: Head: Yes normal to inspection, Yes normocephalic and Yes atraumatic Ears: external ears normal General nose exam: Normal external nose present Face and sinus: Yes normal facial exam Mouth: Normal oral and palatal mucosa present Throat: Yes posterior oropharynx normal Eyes: General: appearance normal, both eyes and all related structures Pupils: Equal, round and reactive pupils present Neck: Neck: Yes normal visual inspection, Yes no lymphadenopathy, Yes trachea midline and Yes supple Chest: Chest palpation & inspection: normal inspection of the chest and normal palpation of entire chest wall Resp: Effort & Inspection: normal respiratory effort and able to speak in complete sentences Auscultation: clear to auscultation bilaterally Cardio: Rate: regular rate Rhythm: regular rhythm Heart sounds: S1 normal heart sound present, S2 normal heart sound present and no murmurs GI: Inspection: Yes normal to inspection Palpation (GI): Soft to palpation, nontender and no guarding Auscultation: normal bowel sounds : General: Yes no CVA tenderness Back/Spine/Pelvis: Back: no CVA tenderness Skin: General skin exam: no rashes or lesions noted Neuro: Other: Oriented to person only Cranial nerves: Yes CN's II-XII intact bilaterally and Yes Equal, round and reactive pupils present Motor exam (neuro): 5/5 motor strength present throughout Extrem: Other: Patient is able to move both his left and right lower extremity without any difficulty, there is no pain with flexion or extension of his hips, the patient does have chronic appearing erythematous dermatitis to the right lower extremity, this is not warm to the touch. This area is not tender to palpation Psych: Appearance: grossly normal Speech and movement: Normal speech and movement present Attitude: cooperative Course Course Course Narrative: 71-year-old male who presents emergency department for evaluation of feeling hot/cold x2 days with nausea and episodes of vomiting. The patient was in the bathroom and had an unwitnessed fall. According to the daughter the patient was half in the bathtub and they were unable to get him up therefore they called an ambulance and the patient was brought to emergency department . The patient has had cognitive deficits sense a cardiac arrest in 2021 and the daughter states that these deficits at the getting worse to the point where he is having visual hallucination and sometimes not recognizing his family members. At the time presentation the patient was complaining of pain in his left hip area otherwise had no other complaints but was not able to give a history. Initial vital signs revealed hypotension with a BP of 88/48, tachycardia with a heart rate of 125 an elevated respiratory rate of 22. Physical examination was otherwise unremarkable. I did order laboratory evaluate to include CBC, CMP, lipase, lactate troponin, blood cultures x2. urinalysis. X-rays of the patient's chest and left hip and pelvis were also ordered., I also ordered a fluid bolus. 17 11: Laboratory/radiology evaluation WBC elevated 17,300, anemia with an H&H of 10 and 32-this is chronic. CO2 was low 15. BUN creatinine were elevated 19 and 1.47-this is chronic. AST and ALT elevated 44 and 45. Initial lactate was 12.2. Repeat after fluid bolus improved to 7.1. Chest x-ray was unremarkable. Urinalysis revealed 3+ protein, 1+ leukocyte esterase, negative nitrates. Microscopic revealed 1-4 RBCs, 30-49 WBCs, 1+ squamous cells, 3+ bacteria. The patient's elevated lactic take may be multifactorial and related to the patient's metformin. The patient's vital signs did improve after he received IV fluid in the also had improvement in his lactate. Patient was ordered to get ceftriaxone 1 g IV. I will obtain a CT scan of the patient's head to rule out injury from his fall. I will discuss admission with the covering hospitalist. 1724: I did discuss the patient's presentation over tiger text with the admitting hospitalist, Kori Salmeron. Patient will be admitted to the hospital service for further treatment. MDM - Syncope Lab Data Result diagrams: 01/23/22 12:58 01/23/22 12:58 Labs: Lab Results 01/23/22 01/23/22 01/23/22 Range/Units 12:58 12:58 12:58 WBC 17.3 H (4.8-10.8) X10*3/uL RBC 3.56 L D (4.60-5.80) X10*6/uL Hgb 10.1 L (14.0-18.0) g/dl Hct 32.3 L (42.0-52.0) % MCV 90.7 (80.0-98.0) fL MCH 28.4 (27.0-33.0) pg MCHC 31.3 (31.0-36.0) g/dl RDW 21.3 H (11.0-16.0) % Plt Count 283 (160-400) X10*3/uL MPV 9.5 (9.4-12.4) fL Immature Gran % (Auto) 1.8 H (0.0-0.4) % Neut % (Auto) 88.4 H (45-73) % Lymph % (Auto) 5.8 L (20-40) % Haines % (Auto) 3.6 (2-11) % Eos % (Auto) 0.2 (0-4) % Baso % (Auto) 0.2 (0-2) % Lymph # (Auto) 1.0 L (1.2-4.9) X10*3/uL Haines # (Auto) 0.6 (0.1-1.2) X10*3/uL Eos # (Auto) 0.0 (0.0-0.4) X10*3/uL Baso # (Auto) 0.0 (0.0-0.2) X10*3/uL Abs Immat Gran (auto) 0.31 H (0.00-0.03) X10*3/uL Absolute Neuts (auto) 15.3 H (2.0-8.3) x10*3/uL Absolute Nucleated RBC 0.150 H (0.0-0.012) X10*3/uL Nucleated RBC % (auto) 0.9 H (0.0-0.2) /100WBC PT (10.0-13.1) SEC INR (0.9-1.1) APTT (24.1-38.0) SEC Sodium 138 (135-145) mmol/L Potassium 4.6 (3.3-5.1) mmol/L Chloride 102 (96-108) mmol/L Carbon Dioxide 15 L (22-29) mmol/L Anion Gap 26 H (12-20) BUN 19 H (9-16) mg/dL Creatinine 1.47 H (0.5-1.4) mg/dL Estim Creat Clear Calc 51.1 Estimated GFR 47 Random Glucose 177 H D (60-115) mg/dL Lactic Acid (0.5-2.0) mmol/L Lactic Acid F/U @ 2Hr (0.5-2.0) mmol/L Calcium 8.7 (8.4-10.2) mg/dL Total Bilirubin 0.8 (0.0-1.0) mg/dL AST 44 H D (5-37) U/L ALT 45 H (0-40) U/L Alkaline Phosphatase 63 (39-117) U/L Total Creatine Kinase 57 D (38-174) U/L Troponin I High Sens (<3.5-35.0) ng/L B-Natriuretic Peptide 40 (<100) pg/mL Total Protein 5.6 L (6.5-8.0) g/dL Albumin 3.4 L (3.5-5.0) g/dL Lipase 28 (8-78) U/L Urine Color Urine Appearance Urine pH (5.0-8.0) Ur Specific [place] (1.005-1.025) Urine Protein (NEG-TRACE) MG/DL Urine Glucose (UA) (NEG) MG/DL Urine Ketones (NEG) MG/DL Urine Blood (NEG) Urine Nitrite (NEG) Ur Leukocyte Esterase (NEG) Urine RBC (0) /HPF Urine WBC (0-4) /HPF Ur Squamous Epith Cells /LPF Urine Bacteria /LPF Urine Opiates Screen (Not Detect) Urine Fentanyl Screen (Not Detect) Ur Barbiturates Screen (Not Detect) Ur Phencyclidine Scrn (Not Detect) Ur Amphetamines Screen (Not Detect) U Benzodiazepines Scrn (Not Detect) Urine Cocaine Screen (Not Detect) U Marijuana (THC) Screen (Not Detect) Ethyl Alcohol mg/dL COVID-19 ([facility]) (Negative) COVID-19 Clin Com 01/23/22 01/23/22 01/23/22 Range/Units 12:58 12:58 12:58 WBC (4.8-10.8) X10*3/uL RBC (4.60-5.80) X10*6/uL Hgb (14.0-18.0) g/dl Hct (42.0-52.0) % MCV (80.0-98.0) fL MCH (27.0-33.0) pg MCHC (31.0-36.0) g/dl RDW (11.0-16.0) % Plt Count (160-400) X10*3/uL MPV (9.4-12.4) fL Immature Gran % (Auto) (0.0-0.4) % Neut % (Auto) (45-73) % Lymph % (Auto) (20-40) % Haines % (Auto) (2-11) % Eos % (Auto) (0-4) % Baso % (Auto) (0-2) % Lymph # (Auto) (1.2-4.9) X10*3/uL Haines # (Auto) (0.1-1.2) X10*3/uL Eos # (Auto) (0.0-0.4) X10*3/uL Baso # (Auto) (0.0-0.2) X10*3/uL Abs Immat Gran (auto) (0.00-0.03) X10*3/uL Absolute Neuts (auto) (2.0-8.3) x10*3/uL Absolute Nucleated RBC (0.0-0.012) X10*3/uL Nucleated RBC % (auto) (0.0-0.2) /100WBC PT 12.3 (10.0-13.1) SEC INR 1.1 (0.9-1.1) APTT 30.4 (24.1-38.0) SEC Sodium (135-145) mmol/L Potassium (3.3-5.1) mmol/L Chloride (96-108) mmol/L Carbon Dioxide (22-29) mmol/L Anion Gap (12-20) BUN (9-16) mg/dL Creatinine (0.5-1.4) mg/dL Estim Creat Clear Calc Estimated GFR Random Glucose (60-115) mg/dL Lactic Acid 12.2 H* (0.5-2.0) mmol/L Lactic Acid F/U @ 2Hr (0.5-2.0) mmol/L Calcium (8.4-10.2) mg/dL Total Bilirubin (0.0-1.0) mg/dL AST (5-37) U/L ALT (0-40) U/L Alkaline Phosphatase (39-117) U/L Total Creatine Kinase (38-174) U/L Troponin I High Sens (<3.5-35.0) ng/L B-Natriuretic Peptide (<100) pg/mL Total Protein (6.5-8.0) g/dL Albumin (3.5-5.0) g/dL Lipase (8-78) U/L Urine Color Urine Appearance Urine pH (5.0-8.0) Ur Specific [place] (1.005-1.025) Urine Protein (NEG-TRACE) MG/DL Urine Glucose (UA) (NEG) MG/DL Urine Ketones (NEG) MG/DL Urine Blood (NEG) Urine Nitrite (NEG) Ur Leukocyte Esterase (NEG) Urine RBC (0) /HPF Urine WBC (0-4) /HPF Ur Squamous Epith Cells /LPF Urine Bacteria /LPF Urine Opiates Screen (Not Detect) Urine Fentanyl Screen (Not Detect) Ur Barbiturates Screen (Not Detect) Ur Phencyclidine Scrn (Not Detect) Ur Amphetamines Screen (Not Detect) U Benzodiazepines Scrn (Not Detect) Urine Cocaine Screen (Not Detect) U Marijuana (THC) Screen (Not Detect) Ethyl Alcohol mg/dL COVID-19 ([facility]) Negative (Negative) COVID-19 Clin Com See Note 01/23/22 01/23/22 01/23/22 Range/Units 12:58 12:58 15:39 WBC (4.8-10.8) X10*3/uL RBC (4.60-5.80) X10*6/uL Hgb (14.0-18.0) g/dl Hct (42.0-52.0) % MCV (80.0-98.0) fL MCH (27.0-33.0) pg MCHC (31.0-36.0) g/dl RDW (11.0-16.0) % Plt Count (160-400) X10*3/uL MPV (9.4-12.4) fL Immature Gran % (Auto) (0.0-0.4) % Neut % (Auto) (45-73) % Lymph % (Auto) (20-40) % Haines % (Auto) (2-11) % Eos % (Auto) (0-4) % Baso % (Auto) (0-2) % Lymph # (Auto) (1.2-4.9) X10*3/uL Haines # (Auto) (0.1-1.2) X10*3/uL Eos # (Auto) (0.0-0.4) X10*3/uL Baso # (Auto) (0.0-0.2) X10*3/uL Abs Immat Gran (auto) (0.00-0.03) X10*3/uL Absolute Neuts (auto) (2.0-8.3) x10*3/uL Absolute Nucleated RBC (0.0-0.012) X10*3/uL Nucleated RBC % (auto) (0.0-0.2) /100WBC PT (10.0-13.1) SEC INR (0.9-1.1) APTT (24.1-38.0) SEC Sodium (135-145) mmol/L Potassium (3.3-5.1) mmol/L Chloride (96-108) mmol/L Carbon Dioxide (22-29) mmol/L Anion Gap (12-20) BUN (9-16) mg/dL Creatinine (0.5-1.4) mg/dL Estim Creat Clear Calc Estimated GFR Random Glucose (60-115) mg/dL Lactic Acid (0.5-2.0) mmol/L Lactic Acid F/U @ 2Hr 7.1 H* (0.5-2.0) mmol/L Calcium (8.4-10.2) mg/dL Total Bilirubin (0.0-1.0) mg/dL AST (5-37) U/L ALT (0-40) U/L Alkaline Phosphatase (39-117) U/L Total Creatine Kinase (38-174) U/L Troponin I High Sens 91.5 H D (<3.5-35.0) ng/L B-Natriuretic Peptide (<100) pg/mL Total Protein (6.5-8.0) g/dL Albumin (3.5-5.0) g/dL Lipase (8-78) U/L Urine Color Urine Appearance Urine pH (5.0-8.0) Ur Specific [place] (1.005-1.025) Urine Protein (NEG-TRACE) MG/DL Urine Glucose (UA) (NEG) MG/DL Urine Ketones (NEG) MG/DL Urine Blood (NEG) Urine Nitrite (NEG) Ur Leukocyte Esterase (NEG) Urine RBC (0) /HPF Urine WBC (0-4) /HPF Ur Squamous Epith Cells /LPF Urine Bacteria /LPF Urine Opiates Screen (Not Detect) Urine Fentanyl Screen (Not Detect) Ur Barbiturates Screen (Not Detect) Ur Phencyclidine Scrn (Not Detect) Ur Amphetamines Screen (Not Detect) U Benzodiazepines Scrn (Not Detect) Urine Cocaine Screen (Not Detect) U Marijuana (THC) Screen (Not Detect) Ethyl Alcohol < 10 mg/dL COVID-19 ([facility]) (Negative) COVID-19 Clin Com 01/23/22 01/23/22 Range/Units 15:46 15:46 WBC (4.8-10.8) X10*3/uL RBC (4.60-5.80) X10*6/uL Hgb (14.0-18.0) g/dl Hct (42.0-52.0) % MCV (80.0-98.0) fL MCH (27.0-33.0) pg MCHC (31.0-36.0) g/dl RDW (11.0-16.0) % Plt Count (160-400) X10*3/uL MPV (9.4-12.4) fL Immature Gran % (Auto) (0.0-0.4) % Neut % (Auto) (45-73) % Lymph % (Auto) (20-40) % Haines % (Auto) (2-11) % Eos % (Auto) (0-4) % Baso % (Auto) (0-2) % Lymph # (Auto) (1.2-4.9) X10*3/uL Haines # (Auto) (0.1-1.2) X10*3/uL Eos # (Auto) (0.0-0.4) X10*3/uL Baso # (Auto) (0.0-0.2) X10*3/uL Abs Immat Gran (auto) (0.00-0.03) X10*3/uL Absolute Neuts (auto) (2.0-8.3) x10*3/uL Absolute Nucleated RBC (0.0-0.012) X10*3/uL Nucleated RBC % (auto) (0.0-0.2) /100WBC PT (10.0-13.1) SEC INR (0.9-1.1) APTT (24.1-38.0) SEC Sodium (135-145) mmol/L Potassium (3.3-5.1) mmol/L Chloride (96-108) mmol/L Carbon Dioxide (22-29) mmol/L Anion Gap (12-20) BUN (9-16) mg/dL Creatinine (0.5-1.4) mg/dL Estim Creat Clear Calc Estimated GFR Random Glucose (60-115) mg/dL Lactic Acid (0.5-2.0) mmol/L Lactic Acid F/U @ 2Hr (0.5-2.0) mmol/L Calcium (8.4-10.2) mg/dL Total Bilirubin (0.0-1.0) mg/dL AST (5-37) U/L ALT (0-40) U/L Alkaline Phosphatase (39-117) U/L Total Creatine Kinase (38-174) U/L Troponin I High Sens (<3.5-35.0) ng/L B-Natriuretic Peptide (<100) pg/mL Total Protein (6.5-8.0) g/dL Albumin (3.5-5.0) g/dL Lipase (8-78) U/L Urine Color YELLOW Urine Appearance TURBID Urine pH 5.5 (5.0-8.0) Ur Specific [place] >= 1.030 H (1.005-1.025) Urine Protein 3+ H (NEG-TRACE) MG/DL Urine Glucose (UA) NEG (NEG) MG/DL Urine Ketones 15 (NEG) MG/DL Urine Blood TRACE (NEG) Urine Nitrite NEG (NEG) Ur Leukocyte Esterase 1+ H (NEG) Urine RBC 1-4 (0) /HPF Urine WBC 30-49 H (0-4) /HPF Ur Squamous Epith Cells 1+ /LPF Urine Bacteria 3+ /LPF Urine Opiates Screen Not Detected (Not Detect) Urine Fentanyl Screen Not Detected (Not Detect) Ur Barbiturates Screen Not Detected (Not Detect) Ur Phencyclidine Scrn Not Detected (Not Detect) Ur Amphetamines Screen Not Detected (Not Detect) U Benzodiazepines Scrn Not Detected (Not Detect) Urine Cocaine Screen Not Detected (Not Detect) U Marijuana (THC) Screen Not Detected (Not Detect) Ethyl Alcohol mg/dL COVID-19 ([facility]) (Negative) COVID-19 Clin Com Discharge Plan Discharge Patient Disposition: Admitted As Inpatient
[2022-01-23 17:52] LABS: Reflex Lactate? 2 Y
--- NOTE | 2022-01-23 18:20 | PHA.MEDREC ---
Pharmacy Consult ? Medication Reconciliation Pharmacy has completed the medication reconciliation.
--- NOTE | 2022-01-23 19:23 | P.HPHOSP_ITS ---
History of Present Illness Date of Service: 01/23/22 Chief Complaint: Unwitnessed 71-year-old male with a past medical history of hypertension, hyperlipidemia, diabetes, myasthenia gravis presented to the hospital today with a chief complaint of unwitnessed fall. Reportedly patient complaining of having nausea and abdominal discomfort. Reports patient always has abdominal discomfort but has more nausea yesterday. Today patient developed fevers. And when he went to the bathroom when he tried to sit on the side of the bathtub he fell onto the back. Denies any loss of consciousness. Patient denies any chest pain palpitations lightheadedness or dizziness. . Review of all other systems is limited ER course: Per ER team patient noted to be mildly hypotensive, tachycardic, noted to have severely elevated lactate, urinalysis abnormal consistent with UTI. Patient was given IV fluids per sepsis protocol. Blood pressure remained stable on the soft side. Admitted to the hospital for further management. Patient was given IV antibiotics. [facility] Medical History Aspiration pneumonia Diabetes Diabetes mellitus, type 2 Erythema of lower extremity Hypercholesteremia Hypertension Intractable nausea and vomiting Myasthenia gravis Myasthenia gravis Myasthenia gravis Myocardial infarction Obesity TBI (traumatic brain injury) Family History Other No family history of coronary artery disease Pertinent family history: Patient unable to provide information Social History Household Members: Spouse Housing: House Do you presently have visiting nurse or other home services: Yes Unable to assess alcohol history related to: Unknown Alcohol intake: never Patient Tobacco Use Status: Never used Tobacco Advance Directives: Yes Advance Directives on File: Yes Advance Directives Date on File: 05/05/21 service: No Current occupational status: retired Meds Allergies Allergy/AdvReac Type Severity Reaction Status Date / Time No Known Allergies Allergy Verified 09/02/21 14:18 [No Known Allergies*] Active Medications: Current Medications Albuterol Sulfate (Albuterol Sulfate 90 Mcg 8 Gm Inhaler) 1 puff INHALE Q4H [facility] Azathioprine (Azathioprine 50 Mg Tablet) 50 mg PO TID PELON Dextrose (Dextrose 50 % 25 Gm/50 Ml Syringe) 25 gm IVPUSH Q15M PRN; Protocol PRN Reason: per Hypoglycemia Standing Ord. Gabapentin (Gabapentin 300 Mg Capsule) 300 mg PO BID PELON Glucose (Glucose Gel 15 Gm Gel..Gram.) 15 gm PO Q15M PRN; Protocol PRN Reason: per Hypoglycemia Standing Ord. Insulin Human Lispro (Insulin Lispro 100 Unit/Ml 3 Ml Vial) 0 unit SUBCUT QIDACHS PELON; Protocol Mirtazapine (Mirtazapine 30 Mg Tablet) 30 mg PO BEDTIME PELON Non-Formulary Medication (Mycophenolate Mofetil) 1 tab PO BID PELON Non-Formulary Medication (Rosuvastatin) 20 mg PO DAILY PLEON Prednisone (Prednisone 5 Mg Tablet) 25 mg PO DAILY PELON Pyridostigmine Cecil (Pyridostigmine Cecil 60 Mg Tablet) 60 mg PO QID PELON Quetiapine Fumarate (Quetiapine Fumarate 25 Mg Tablet) 25 mg PO BEDTIME PELON Valacyclovir HCl (Valacyclovir Hcl 1,000 Mg Tablet) mg PO TID [facility] Home Medications Medication Instructions Recorded Confirmed Last Taken Type amlodipine 10 mg tablet 10 mg PO DAILY 06/02/20 01/23/22 08/24/21 History azathioprine 50 mg tablet 50 mg PO TID 06/02/20 01/23/22 08/24/21 History pyridostigmine bromide 60 mg tablet 1 tab PO QID 06/02/20 01/23/22 08/24/21 History quetiapine 25 mg tablet 1 tab PO BEDTIME 06/02/20 01/23/22 08/24/21 History valsartan 80 mg tablet 1 tab PO DAILY 06/02/20 01/23/22 08/24/21 History blood sugar diagnostic (FreeStyle #10 ea 03/05/21 05/02/21 Unknown History Lite Strips) lancets 28 gauge (FreeStyle #100 ea 03/05/21 05/02/21 Unknown History Lancets) clotrimazole 1 % topical cream 1 appl topical BID 08/24/21 01/23/22 08/24/21 History gabapentin 300 mg capsule 1 cap PO BID 08/24/21 01/23/22 08/24/21 History loperamide 2 mg capsule 1 tab PO BID 08/24/21 01/23/22 08/24/21 History mycophenolate mofetil 500 mg tablet 1 tab PO BID 08/24/21 01/23/22 08/24/21 History metformin 500 mg tablet 1,000 mg PO BID 09/02/21 01/23/22 Unknown History glipizide 5 mg tablet 5 mg PO BID 11/30/21 01/23/22 Unknown History prednisone 10 mg tablet 25 mg PO DAILY 11/30/21 01/23/22 Unknown History albuterol sulfate 90 mcg/actuation 1 puff inhalation Q4H 01/23/22 01/23/22 Unknown History aerosol inhaler (Ventolin HFA) furosemide 40 mg tablet 1 tab PO DAILY 01/23/22 01/23/22 Unknown History mirtazapine 30 mg tablet 1 tab PO BEDTIME 01/23/22 01/23/22 Unknown History triamcinolone acetonide 0.1 % 1 appl topical BID 01/23/22 01/23/22 Unknown History topical cream valacyclovir 1 gram tablet 1 tab PO TID 01/23/22 01/23/22 Unknown History Physical Exam Vital Signs and Narrative: Vital Signs: Last Vital Signs Temp 98.3 F 01/23/22 16:14 Pulse 116 H 01/23/22 16:14 Resp 24 H 01/23/22 16:14 BP 99/44 L 01/23/22 16:14 Pulse Ox 95 01/23/22 16:14 O2 Del Method 01/23/22 16:14 O2 Flow Rate 2 01/23/22 16:14 BMI result Body Mass Index 35.5 Gen: Appears be in no acute distress HEENT: NCAT, Moist mucosa. Pulmonary: Vesicular breath sounds, fair air entry CVS: Normal S1-S2 Abdomen: BS+, Soft, Nontender Extremities: Warm well perfused Neuro: Alert and awake. Grossly nonfocal Results Labs CBC and Chem 7: 01/23/22 12:58 01/23/22 12:58 Labs: Laboratory Results - last 24 hr 01/23/22 01/23/22 01/23/22 12:58 12:58 12:58 MCV 90.7 MCH 28.4 MCHC 31.3 RDW 21.3 H Plt Count 283 MPV 9.5 Immature Gran % (Auto) 1.8 H Neut % (Auto) 88.4 H Lymph % (Auto) 5.8 L [place] % (Auto) 3.6 Eos % (Auto) 0.2 Baso % (Auto) 0.2 Lymph # (Auto) 1.0 L [place] # (Auto) 0.6 Eos # (Auto) 0.0 Baso # (Auto) 0.0 Abs Immat Gran (auto) 0.31 H Absolute Neuts (auto) 15.3 H Absolute Nucleated RBC 0.150 H Nucleated RBC % (auto) 0.9 H PT INR APTT Anion Gap 26 H Estim Creat Clear Calc 51.1 Estimated GFR 47 Random Glucose 177 H D Lactic Acid Lactic Acid F/U @ 2Hr Calcium 8.7 Total Bilirubin 0.8 AST 44 H D ALT 45 H Alkaline Phosphatase 63 Total Creatine Kinase 57 D Troponin I High Sens B-Natriuretic Peptide 40 Total Protein 5.6 L Albumin 3.4 L Lipase 28 Urine Color Urine Appearance Urine pH Ur Specific [place] Urine Protein Urine Glucose (UA) Urine Ketones Urine Blood Urine Nitrite Ur Leukocyte Esterase Urine RBC Urine WBC Ur Squamous Epith Cells Urine Bacteria Urine Opiates Screen Urine Fentanyl Screen Ur Barbiturates Screen Ur Phencyclidine Scrn Ur Amphetamines Screen U Benzodiazepines Scrn Urine Cocaine Screen U Marijuana (THC) Screen Ethyl Alcohol COVID-19 (MANISHA) COVID-19 Clin Com 01/23/22 01/23/22 01/23/22 12:58 12:58 12:58 MCV MCH MCHC RDW Plt Count MPV Immature Gran % (Auto) Neut % (Auto) Lymph % (Auto) [place] % (Auto) Eos % (Auto) Baso % (Auto) Lymph # (Auto) [place] # (Auto) Eos # (Auto) Baso # (Auto) Abs Immat Gran (auto) Absolute Neuts (auto) Absolute Nucleated RBC Nucleated RBC % (auto) PT 12.3 INR 1.1 APTT 30.4 Anion Gap Estim Creat Clear Calc Estimated GFR Random Glucose Lactic Acid 12.2 H* Lactic Acid F/U @ 2Hr Calcium Total Bilirubin AST ALT Alkaline Phosphatase Total Creatine Kinase Troponin I High Sens B-Natriuretic Peptide Total Protein Albumin Lipase Urine Color Urine Appearance Urine pH Ur Specific [place] Urine Protein Urine Glucose (UA) Urine Ketones Urine Blood Urine Nitrite Ur Leukocyte Esterase Urine RBC Urine WBC Ur Squamous Epith Cells Urine Bacteria Urine Opiates Screen Urine Fentanyl Screen Ur Barbiturates Screen Ur Phencyclidine Scrn Ur Amphetamines Screen U Benzodiazepines Scrn Urine Cocaine Screen U Marijuana (THC) Screen Ethyl Alcohol COVID-19 (MANISHA) Negative COVID-19 Clin Com See Note 01/23/22 01/23/22 01/23/22 12:58 12:58 15:39 MCV MCH MCHC RDW Plt Count MPV Immature Gran % (Auto) Neut % (Auto) Lymph % (Auto) [place] % (Auto) Eos % (Auto) Baso % (Auto) Lymph # (Auto) [place] # (Auto) Eos # (Auto) Baso # (Auto) Abs Immat Gran (auto) Absolute Neuts (auto) Absolute Nucleated RBC Nucleated RBC % (auto) PT INR APTT Anion Gap Estim Creat Clear Calc Estimated GFR Random Glucose Lactic Acid Lactic Acid F/U @ 2Hr 7.1 H* Calcium Total Bilirubin AST ALT Alkaline Phosphatase Total Creatine Kinase Troponin I High Sens 91.5 H D B-Natriuretic Peptide Total Protein Albumin Lipase Urine Color Urine Appearance Urine pH Ur Specific [place] Urine Protein Urine Glucose (UA) Urine Ketones Urine Blood Urine Nitrite Ur Leukocyte Esterase Urine RBC Urine WBC Ur Squamous Epith Cells Urine Bacteria Urine Opiates Screen Urine Fentanyl Screen Ur Barbiturates Screen Ur Phencyclidine Scrn Ur Amphetamines Screen U Benzodiazepines Scrn Urine Cocaine Screen U Marijuana (THC) Screen Ethyl Alcohol < 10 COVID-19 (MANISHA) COVID-19 Clin Com 01/23/22 01/23/22 15:46 15:46 MCV MCH MCHC RDW Plt Count MPV Immature Gran % (Auto) Neut % (Auto) Lymph % (Auto) [place] % (Auto) Eos % (Auto) Baso % (Auto) Lymph # (Auto) [place] # (Auto) Eos # (Auto) Baso # (Auto) Abs Immat Gran (auto) Absolute Neuts (auto) Absolute Nucleated RBC Nucleated RBC % (auto) PT INR APTT Anion Gap Estim Creat Clear Calc Estimated GFR Random Glucose Lactic Acid Lactic Acid F/U @ 2Hr Calcium Total Bilirubin AST ALT Alkaline Phosphatase Total Creatine Kinase Troponin I High Sens B-Natriuretic Peptide Total Protein Albumin Lipase Urine Color YELLOW Urine Appearance TURBID Urine pH 5.5 Ur Specific [place] >= 1.030 H Urine Protein 3+ H Urine Glucose (UA) NEG Urine Ketones 15 Urine Blood TRACE Urine Nitrite NEG Ur Leukocyte Esterase 1+ H Urine RBC 1-4 Urine WBC 30-49 H Ur Squamous Epith Cells 1+ Urine Bacteria 3+ Urine Opiates Screen Not Detected Urine Fentanyl Screen Not Detected Ur Barbiturates Screen Not Detected Ur Phencyclidine Scrn Not Detected Ur Amphetamines Screen Not Detected U Benzodiazepines Scrn Not Detected Urine Cocaine Screen Not Detected U Marijuana (THC) Screen Not Detected Ethyl Alcohol COVID-19 (MANISHA) COVID-19 Clin Com Imaging Radiologist's Impressions: Impressions Chest X-Ray 01/23/22 13:52 IMPRESSION: Stable appearance of the chest. Hip/Pelvis X-Ray 01/23/22 13:52 IMPRESSION: No evidence of acute fracture or diastases the pelvis. No evidence of acute fracture or dislocation of the left hip. Head CT 01/23/22 17:57 IMPRESSION: No acute intracranial pathology. There is no evidence of acute intracranial hemorrhage or acute fracture of the osseous calvarium. Assessment and Plan (1) Urinary tract infection: Qualifiers: Hematuria presence: without hematuria Urinary tract infection type: site unspecified Qualified Code(s): N39.0 - Urinary tract infection, site not specified Status: Acute (2) Fall: Qualifiers: Encounter type: initial encounter Qualified Code(s): W19.XXXA - Unspecified fall, initial encounter Status: Acute (3) Diabetes mellitus, type 2: Status: Acute (4) Myasthenia gravis: Status: Acute Plan 71-year-old male with a past medical history of hypertension, hyperlipidemia, diabetes, myasthenia gravis presented to the hospital today with a chief complaint of unwitnessed fall. Noted to have following conditions Unwitnessed fall: Unclear if the patient had syncope. Exam nonfocal. CT head showed no acute findings. EKG nonischemic. Initial troponin 90-repeat troponin pending. Patient denies chest pain. Severe Sepsis/UTI/Bacteremia: Continue ceftriaxone. Follow up final cultures Severe lactic acidosis: The setting of sepsis/dehydration. Improving with IV fluids. Follow-up will repeat lactate levels History of CKD: Patient's creatinine at baseline of 1.4. History of hypertension: Patient blood pressure currently on soft side. Hold home amlodipine, Lasix. History of myasthenia gravis: Continue home mycophenolate, prednisone, pyridostigmine, azathioprine History of diabetes: Hold home metformin, glipizide. Insulin sliding scale. DVT prophylaxis: Subcu heparin Code status: DNR/DNI. Confirmed with the patient's and patient's daughter over the phone. Quality Stroke Does the patient have a stroke diagnosis?: No VTE Prior VTE?: No VTE Risk Level:: Medical - moderate - high VTE Device Contraindication: Treatment Not Indicated VTE Drug Contraindication: N/A - Med Ordered
[2022-01-23] MEDS: Albuterol Sulfate 90 MCG 8 GM INHALER 1 PUFF INHALE (20:06)
[2022-01-23] MEDS: Heparin Sodium,Porcine 5,000 UNIT/ML VIAL 5000 UNIT SUBCUT (20:18)
--- NOTE | 2022-01-23 20:22 | PC.NURSE ---
pt alert and orientatedx3, but requires redirection w some baseline confusion, asks to go home, tearful, hypotensive, medicated per provider order, IV left hand infiltrated - discontinued.
[2022-01-23 20:36] LABS: Lactic Acid 6.4 mmol/L (0.5-2.0)
[2022-01-23 20:43] LABS: Troponin-I High Sensitivity 116.5 ng/L (<3.5-35.0)
--- NOTE | 2022-01-23 20:49 | PC.NURSE ---
Dr. Hart (hospitalist) aware of patient's troponin level 116.5.
[2022-01-23 21:41] LABS: Glucose, Whole Blood 118 mg/dL (60-115)
[2022-01-23 22:10] LABS: Reflex Lactate? Lactic Acid Added
[2022-01-23] MEDS: 0.9 % Sodium Chloride 1,000 ML 100 ML IVCONT (22:15)
[2022-01-23] MEDS: azaTHIOprine 50 MG TABLET PO (22:17)
[2022-01-23] MEDS: QUEtiapine Fumarate 25 MG TABLET PO (22:19)
[2022-01-23] MEDS: valACYclovir HCL 1,000 MG TABLET 1000 MG PO (22:19)
[2022-01-23] MEDS: Mirtazapine 30 MG TABLET PO (22:20)
[2022-01-23] MEDS: Gabapentin 300 MG CAPSULE PO (22:20)
[2022-01-23 23:13] LABS: ~Lactic Acid-LAB USE ONLY 4.8 mmol/L (0.5-2.0)
[2022-01-24] MEDS: Acetaminophen 325 MG TABLET 650 MG PO ×2 (00:33→11:03)
[2022-01-24 00:45] VITALS: BP 110/49; PULSE 112; RESP 15; O2SAT 97
[2022-01-24 00:58] LABS: Reflex Lactate? 2 Y
[2022-01-24 01:46] LABS: ~Lactic Acid-LAB USE ONLY 5.8 mmol/L (0.5-2.0)
[2022-01-24 02:37] VITALS: BP 101/48; PULSE 111; RESP 22; TEMP 37.3; O2SAT 96
[2022-01-24 02:47] LABS: Glucose, Whole Blood 96 mg/dL (60-115)
[2022-01-24] MEDS: Heparin Sodium,Porcine 5,000 UNIT/ML VIAL 5000 UNIT SUBCUT ×3 (04:16→19:20)
[2022-01-24 07:08] LABS: MANUAL DIFF FLAG NO
[2022-01-24 07:15] LABS: Basophils Percent Auto 0.1 % (0-2); Eosinophils Absolute Auto 0.1 X10*3/uL (0.0-0.4); Eosinophils Percent Auto 0.6 % (0-4); Hematocrit 29.5 % (42.0-52.0); Hemoglobin 9.1 g/dl (14.0-18.0); Imm Gran Pct Auto 1.4 % (0.0-0.4); Lymphocytes Absolute Auto 0.8 X10*3/uL (1.2-4.9); Lymphocytes Percent Auto 5.5 % (20-40); Mean Corpuscular HGB Conc 30.8 g/dl (31.0-36.0); Mean Corpuscular Hemoglobin 27.7 pg (27.0-33.0); Mean Corpuscular Volume 89.7 fL (80.0-98.0); Mean Platelet Volume 9.7 fL (9.4-12.4); Monocytes Absolute Auto 0.6 X10*3/uL (0.1-1.2); Monocytes Percent Auto 3.9 % (2-11); NRBC Pct Auto 0.6 /100WBC (0.0-0.2); Neutrophils Absolute Auto 12.5 x10*3/uL (2.0-8.3); Neutrophils Percent Auto 88.5 % (45-73); Platelet Count 209 X10*3/uL (160-400); Red Blood Count 3.29 X10*6/uL (4.60-5.80); White Blood Count 14.2 X10*3/uL (4.8-10.8)
[2022-01-24 07:30] LABS: Glucose, Whole Blood 104 mg/dL (60-115)
[2022-01-24 08:14] LABS: Anion Gap 17 (12-20); Blood Urea Nitrogen 16 mg/dL (9-16); Carbon Dioxide 22 mmol/L (22-29); Chloride 105 mmol/L (96-108); Creatinine Clr Calc Pharmacy 82.6; Estimated Glomerular Filt Rate > 60; Glucose Random 93 mg/dL (60-115); Potassium 4.1 mmol/L (3.3-5.1); Sodium 140 mmol/L (135-145)
[2022-01-24] MEDS: predniSONE 5 MG TABLET 25 MG PO (08:25)
[2022-01-24] MEDS: valACYclovir HCL 1,000 MG TABLET 1000 MG PO ×3 (08:25→22:01)
[2022-01-24] MEDS: 0.9 % Sodium Chloride Flush 3 ML SYRINGE IVFLUSH ×2 (08:25→16:13)
[2022-01-24] MEDS: Albuterol Sulfate 90 MCG 8 GM INHALER 1 PUFF INHALE ×2 (08:25→11:29)
[2022-01-24] MEDS: Gabapentin 300 MG CAPSULE PO ×2 (08:25→22:02)
[2022-01-24] MEDS: Atorvastatin Calcium 80 MG TABLET PO (08:25)
[2022-01-24 08:58] LABS: Calcium 8.5 mg/dL (8.4-10.2)
[2022-01-24] MEDS: azaTHIOprine 50 MG TABLET PO ×3 (09:32→22:02)
--- NOTE | 2022-01-24 11:18 | HO.PM.IMPN ---
Subjective Subjective Date of Service: 01/25/22 Interval History: Complaining of lower abdominal discomfort , otherwise denies fever , chills, voiding in urinal denies dysuria, denies headache, lightheadedness or dizziness blood pressure remains soft overnight, no acute events since admission. Review of Systems Review of Systems: Yes all other systems are reviewed and are negative Physical Exam Vital Signs: Vital Signs: Last Vital Signs Temp 99.1 F 01/24/22 02:37 Pulse 111 H 01/24/22 02:37 Resp 22 H 01/24/22 02:37 BP 101/48 L 01/24/22 02:37 Pulse Ox 96 01/24/22 02:37 O2 Del Method 01/24/22 02:37 O2 Flow Rate 3 01/24/22 02:37 Oxygen Flow Rate 3 01/23/22 22:00 BMI result Body Mass Index 35.5 Const: Other: General awake alert, no acute distress. Neck supple no JVD. CVS regular rate rhythm, Respiratory lungs clear to auscultation, no respiratory distress, no wheeze, no rhonchi. Gastrointestinal abdomen soft, obese, nontender, bowel sounds audible, no guarding , no rigidity. Extremities no edema. Neuro nonfocal, moving all 4 extremity, speech clear. Skin no rash Objective Data Active Medications Acetaminophen (Acetaminophen 325 Mg Tablet) 650 mg PO Q6H PRN PRN Reason: Pain, Mild (Pain Scale 1-3) Last Admin: 01/24/22 11:03 Dose: 650 mg Documented By: MARK Albuterol Sulfate (Albuterol Sulfate 90 Mcg 8 Gm Inhaler) 1 puff INHALE RQ4H WHILE AWAKE [facility] Last Admin: 01/24/22 08:25 Dose: 1 puff Documented By: MARK Atorvastatin Calcium (Atorvastatin Calcium 80 Mg Tablet) 80 mg PO DAILY [facility] Last Admin: 01/24/22 08:25 Dose: 80 mg Documented By: MARK Azathioprine (Azathioprine 50 Mg Tablet) 50 mg PO TID [facility] Last Admin: 01/24/22 09:32 Dose: 50 mg Documented By: MARK Dextrose (Dextrose 50 % 25 Gm/50 Ml Syringe) 25 gm IVPUSH Q15M PRN; Protocol PRN Reason: per Hypoglycemia Standing Ord. Gabapentin (Gabapentin 300 Mg Capsule) 300 mg PO BID [facility] Last Admin: 01/24/22 08:25 Dose: 300 mg Documented By: MARK Glucose (Glucose Gel 15 Gm Gel..Gram.) 15 gm PO Q15M PRN; Protocol PRN Reason: per Hypoglycemia Standing Ord. Heparin Sodium (Porcine) (Heparin Sodium,Porcine 5,000 Unit/Ml Vial) 5,000 unit SUBCUT Q8H [facility] Last Admin: 01/24/22 11:03 Dose: 5,000 unit Documented By: MARK Hydrocortisone Sodium Succinate (Hydrocortisone Sod Succ/Pf 100 Mg Vial) 100 mg IVPUSH Q8H [facility] Sodium Chloride (Ns) 1,000 mls @ 100 mls/hr IVCONT .Q10H [facility] Last Infusion: 01/24/22 08:33 Dose: 100 mls/hr Documented By: ARMAAN Ceftriaxone Sodium 1 gm/ (Sodium Chloride) 50 mls @ 100 mls/hr IV Q24H [facility] Insulin Human Lispro (Insulin Lispro 100 Unit/Ml 3 Ml Vial) 0 unit SUBCUT QIDACHS [facility]; Protocol Last Admin: 01/24/22 08:00 Dose: Not Given Documented By: ARMAAN Non-Admin Reason: No Insulin Coverage Melatonin (Melatonin 3 Mg Tablet) 6 mg PO BEDTIME PRN PRN Reason: Insomnia Mirtazapine (Mirtazapine 30 Mg Tablet) 30 mg PO BEDTIME [facility] Last Admin: 01/23/22 22:20 Dose: 30 mg Documented By: JUAN M Non-Formulary Medication (Mycophenolate Mofetil) 1 tab PO BID [facility] Pyridostigmine [place] (Pyridostigmine [place] 60 Mg Tablet) 60 mg PO QID [facility] Last Admin: 01/24/22 09:32 Dose: 60 mg Documented By: MARK Quetiapine Fumarate (Quetiapine Fumarate 25 Mg Tablet) 25 mg PO BEDTIME [facility] Last Admin: 01/23/22 22:19 Dose: 25 mg Documented By: JUAN M Senna (Sennosides 8.6 Mg Tablet) 17.2 mg PO BEDTIME PRN PRN Reason: Constipation Sodium Chloride (0.9 % Sodium Chloride Flush 3 Ml Syringe) 3 ml IVFLUSH QSHIFT [facility] Last Admin: 01/24/22 08:25 Dose: 3 ml Documented By: MARK Valacyclovir HCl (Valacyclovir Hcl 1,000 Mg Tablet) 1,000 mg PO TID [facility] Last Admin: 01/24/22 08:25 Dose: 1,000 mg Documented By: MARK Labs CBC & Chem 7: 01/25/22 06:28 01/25/22 06:28 Labs: Laboratory Results - last 24 hr 01/23/22 01/23/22 01/23/22 12:58 12:58 12:58 MCV 90.7 MCH 28.4 MCHC 31.3 RDW 21.3 H Plt Count 283 MPV 9.5 Immature Gran % (Auto) 1.8 H Neut % (Auto) 88.4 H Lymph % (Auto) 5.8 L [place] % (Auto) 3.6 Eos % (Auto) 0.2 Baso % (Auto) 0.2 Lymph # (Auto) 1.0 L [place] # (Auto) 0.6 Eos # (Auto) 0.0 Baso # (Auto) 0.0 Abs Immat Gran (auto) 0.31 H Absolute Neuts (auto) 15.3 H Absolute Nucleated RBC 0.150 H Nucleated RBC % (auto) 0.9 H PT INR APTT Anion Gap 26 H Estim Creat Clear Calc 51.1 Estimated GFR 47 POC Glucose Random Glucose 177 H D Lactic Acid Lactic Acid F/U @ 2Hr Lactic Acid F/U @ 4Hr Calcium 8.7 Total Bilirubin 0.8 AST 44 H D ALT 45 H Alkaline Phosphatase 63 Total Creatine Kinase 57 D Troponin I High Sens B-Natriuretic Peptide 40 Total Protein 5.6 L Albumin 3.4 L Lipase 28 Urine Color Urine Appearance Urine pH Ur Specific [place] Urine Protein Urine Glucose (UA) Urine Ketones Urine Blood Urine Nitrite Ur Leukocyte Esterase Urine RBC Urine WBC Ur Squamous Epith Cells Urine Bacteria Urine Opiates Screen Urine Fentanyl Screen Ur Barbiturates Screen Ur Phencyclidine Scrn Ur Amphetamines Screen U Benzodiazepines Scrn Urine Cocaine Screen U Marijuana (THC) Screen Ethyl Alcohol COVID-19 ([facility]) COVID-19 Clin Com 01/23/22 01/23/22 01/23/22 12:58 12:58 12:58 MCV MCH MCHC RDW Plt Count MPV Immature Gran % (Auto) Neut % (Auto) Lymph % (Auto) [place] % (Auto) Eos % (Auto) Baso % (Auto) Lymph # (Auto) [place] # (Auto) Eos # (Auto) Baso # (Auto) Abs Immat Gran (auto) Absolute Neuts (auto) Absolute Nucleated RBC Nucleated RBC % (auto) PT 12.3 INR 1.1 APTT 30.4 Anion Gap Estim Creat Clear Calc Estimated GFR POC Glucose Random Glucose Lactic Acid 12.2 H* Lactic Acid F/U @ 2Hr Lactic Acid F/U @ 4Hr Calcium Total Bilirubin AST ALT Alkaline Phosphatase Total Creatine Kinase Troponin I High Sens B-Natriuretic Peptide Total Protein Albumin Lipase Urine Color Urine Appearance Urine pH Ur Specific [place] Urine Protein Urine Glucose (UA) Urine Ketones Urine Blood Urine Nitrite Ur Leukocyte Esterase Urine RBC Urine WBC Ur Squamous Epith Cells Urine Bacteria Urine Opiates Screen Urine Fentanyl Screen Ur Barbiturates Screen Ur Phencyclidine Scrn Ur Amphetamines Screen U Benzodiazepines Scrn Urine Cocaine Screen U Marijuana (THC) Screen Ethyl Alcohol COVID-19 ([facility]ISHA) Negative COVID-19 [employer] Com See Note 01/23/22 01/23/22 01/23/22 12:58 12:58 15:39 MCV MCH MCHC RDW Plt Count MPV Immature Gran % (Auto) Neut % (Auto) Lymph % (Auto) [place] % (Auto) Eos % (Auto) Baso % (Auto) Lymph # (Auto) [place] # (Auto) Eos # (Auto) Baso # (Auto) Abs Immat Gran (auto) Absolute Neuts (auto) Absolute Nucleated RBC Nucleated RBC % (auto) PT INR APTT Anion Gap Estim Creat Clear Calc Estimated GFR POC Glucose Random Glucose Lactic Acid Lactic Acid F/U @ 2Hr 7.1 H* Lactic Acid F/U @ 4Hr Calcium Total Bilirubin AST ALT Alkaline Phosphatase Total Creatine Kinase Troponin I High Sens 91.5 H D B-Natriuretic Peptide Total Protein Albumin Lipase Urine Color Urine Appearance Urine pH Ur Specific [place] Urine Protein Urine Glucose (UA) Urine Ketones Urine Blood Urine Nitrite Ur Leukocyte Esterase Urine RBC Urine WBC Ur Squamous Epith Cells Urine Bacteria Urine Opiates Screen Urine Fentanyl Screen Ur Barbiturates Screen Ur Phencyclidine Scrn Ur Amphetamines Screen U Benzodiazepines Scrn Urine Cocaine Screen U Marijuana (THC) Screen Ethyl Alcohol < 10 COVID-19 ([facility]) COVID-19 [employer] Com 01/23/22 01/23/22 01/23/22 15:46 15:46 20:05 MCV MCH MCHC RDW Plt Count MPV Immature Gran % (Auto) Neut % (Auto) Lymph % (Auto) [place] % (Auto) Eos % (Auto) Baso % (Auto) Lymph # (Auto) [place] # (Auto) Eos # (Auto) Baso # (Auto) Abs Immat Gran (auto) Absolute Neuts (auto) Absolute Nucleated RBC Nucleated RBC % (auto) PT INR APTT Anion Gap Estim Creat Clear Calc Estimated GFR POC Glucose Random Glucose Lactic Acid 6.4 H* Lactic Acid F/U @ 2Hr Lactic Acid F/U @ 4Hr Calcium Total Bilirubin AST ALT Alkaline Phosphatase Total Creatine Kinase Troponin I High Sens B-Natriuretic Peptide Total Protein Albumin Lipase Urine Color YELLOW Urine Appearance TURBID Urine pH 5.5 Ur Specific [place] >= 1.030 H Urine Protein 3+ H Urine Glucose (UA) NEG Urine Ketones 15 Urine Blood TRACE Urine Nitrite NEG Ur Leukocyte Esterase 1+ H Urine RBC 1-4 Urine WBC 30-49 H Ur Squamous Epith Cells 1+ Urine Bacteria 3+ Urine Opiates Screen Not Detected Urine Fentanyl Screen Not Detected Ur Barbiturates Screen Not Detected Ur Phencyclidine Scrn Not Detected Ur Amphetamines Screen Not Detected U Benzodiazepines Scrn Not Detected Urine Cocaine Screen Not Detected U Marijuana (THC) Screen Not Detected Ethyl Alcohol COVID-19 ([facility]) COVID-19 Clin Com 01/23/22 01/23/22 01/23/22 20:05 21:36 22:53 MCV MCH MCHC RDW Plt Count MPV Immature Gran % (Auto) Neut % (Auto) Lymph % (Auto) [place] % (Auto) Eos % (Auto) Baso % (Auto) Lymph # (Auto) [place] # (Auto) Eos # (Auto) Baso # (Auto) Abs Immat Gran (auto) Absolute Neuts (auto) Absolute Nucleated RBC Nucleated RBC % (auto) PT INR APTT Anion Gap Estim Creat Clear Calc Estimated GFR POC Glucose 118 H Random Glucose Lactic Acid Lactic Acid F/U @ 2Hr 4.8 H* Lactic Acid F/U @ 4Hr Calcium Total Bilirubin AST ALT Alkaline Phosphatase Total Creatine Kinase Troponin I High Sens 116.5 H* B-Natriuretic Peptide Total Protein Albumin Lipase Urine Color Urine Appearance Urine pH Ur Specific [place] Urine Protein Urine Glucose (UA) Urine Ketones Urine Blood Urine Nitrite Ur Leukocyte Esterase Urine RBC Urine WBC Ur Squamous Epith Cells Urine Bacteria Urine Opiates Screen Urine Fentanyl Screen Ur Barbiturates Screen Ur Phencyclidine Scrn Ur Amphetamines Screen U Benzodiazepines Scrn Urine Cocaine Screen U Marijuana (THC) Screen Ethyl Alcohol COVID-19 ([facility]) COVID-19 [employer] Com 01/24/22 01/24/22 01/24/22 01:21 02:32 06:38 MCV 89.7 MCH 27.7 MCHC 30.8 L RDW 22.0 H Plt Count 209 D MPV 9.7 Immature Gran % (Auto) 1.4 H Neut % (Auto) 88.5 H Lymph % (Auto) 5.5 L [place] % (Auto) 3.9 Eos % (Auto) 0.6 Baso % (Auto) 0.1 Lymph # (Auto) 0.8 L [place] # (Auto) 0.6 Eos # (Auto) 0.1 Baso # (Auto) 0.0 Abs Immat Gran (auto) 0.20 H Absolute Neuts (auto) 12.5 H Absolute Nucleated RBC 0.090 H Nucleated RBC % (auto) 0.6 H PT INR APTT Anion Gap Estim Creat Clear Calc Estimated GFR POC Glucose 96 Random Glucose Lactic Acid Lactic Acid F/U @ 2Hr Lactic Acid F/U @ 4Hr 5.8 H* Calcium Total Bilirubin AST ALT Alkaline Phosphatase Total Creatine Kinase Troponin I High Sens B-Natriuretic Peptide Total Protein Albumin Lipase Urine Color Urine Appearance Urine pH Ur Specific [place] Urine Protein Urine Glucose (UA) Urine Ketones Urine Blood Urine Nitrite Ur Leukocyte Esterase Urine RBC Urine WBC Ur Squamous Epith Cells Urine Bacteria Urine Opiates Screen Urine Fentanyl Screen Ur Barbiturates Screen Ur Phencyclidine Scrn Ur Amphetamines Screen U Benzodiazepines Scrn Urine Cocaine Screen U Marijuana (THC) Screen Ethyl Alcohol COVID-19 ([facility]) COVID-19 [employer] Com 01/24/22 01/24/22 06:38 07:09 MCV MCH MCHC RDW Plt Count MPV Immature Gran % (Auto) Neut % (Auto) Lymph % (Auto) [place] % (Auto) Eos % (Auto) Baso % (Auto) Lymph # (Auto) [place] # (Auto) Eos # (Auto) Baso # (Auto) Abs Immat Gran (auto) Absolute Neuts (auto) Absolute Nucleated RBC Nucleated RBC % (auto) PT INR APTT Anion Gap 17 Estim Creat Clear Calc 82.6 Estimated GFR > 60 POC Glucose 104 Random Glucose 93 D Lactic Acid Lactic Acid F/U @ 2Hr Lactic Acid F/U @ 4Hr Calcium 8.5 Total Bilirubin AST ALT Alkaline Phosphatase Total Creatine Kinase Troponin I High Sens B-Natriuretic Peptide Total Protein Albumin Lipase Urine Color Urine Appearance Urine pH Ur Specific [place] Urine Protein Urine Glucose (UA) Urine Ketones Urine Blood Urine Nitrite Ur Leukocyte Esterase Urine RBC Urine WBC Ur Squamous Epith Cells Urine Bacteria Urine Opiates Screen Urine Fentanyl Screen Ur Barbiturates Screen Ur Phencyclidine Scrn Ur Amphetamines Screen U Benzodiazepines Scrn Urine Cocaine Screen U Marijuana (THC) Screen Ethyl Alcohol COVID-19 ([facility]) COVID-19 Clin Com Microbiology Microbiology Results: Microbiology 01/23/22 12:57 Blood Culture - Preliminary Blood - Venous Prelim: GNR Gram Stain only 01/23/22 12:57 Blood Culture - Preliminary Blood - Venous Prelim: GNR Gram Stain only Assessment and Plan (1) Urinary tract infection: Status: Acute (2) Diabetes mellitus, type 2: Status: Acute (3) Myasthenia gravis: Status: Acute Plan 71-year-old male with a past medical history of hypertension, hyperlipidemia, diabetes, myasthenia gravis presented to the hospital today with a chief complaint of unwitnessed fall.? Noted to have following conditions Unwitnessed fall: Likely due to sepsis/no syncope Patient denies loss of consciousness neuro examination is nonfocal,CT head showed no acute findings, EKG nonischemic,Initial troponin 90-repeat troponin 116.5 ,Patient denies chest pain, follow clinical course. Severe Sepsis/UTI/Bacteremia: Met sepsis criteria due to leukocytosis tachypnea tachycardia, lactic acidosis and soft blood pressure Blood cultures x2 positive for gm negative jodi, likely due to UTI, chest x-ray negative, Follow up final cultures WBC trending down, no fevers Continue IV ceftriaxone day 2 increase dose to ceftriaxone 2 g Severe lactic acidosis: in setting of sepsis/dehydration.? Improved with IV fluids.? History of CKD stage III: creatinine at baseline of 1.4. History of hypertension: blood pressure on soft side.? Hold home amlodipine, and Lasix. Question adrenal insufficiency will give hydrocortisone 100 mg q.8 hours, follow cortisol level History of myasthenia gravis: Continue home mycophenolate, prednisone, pyridostigmine, and hold azathioprine History of diabetes:? Blood sugars stable around 104, Hold home metformin, glipizide.? Continue Insulin sliding scale. DVT prophylaxis:? Subcu heparin Code status:? DNR/DNI.? Patient will need continued inpatient hospitalization due to severe sepsis/bacteremia requiring IV antibiotics that cannot be done outside hospital setting. Quality Stroke Does the patient have a stroke diagnosis?: No VTE Prior VTE?: No VTE Risk Level:: Medical - moderate - high VTE Device Contraindication: Treatment Not Indicated VTE Drug Contraindication: N/A - Med Ordered
[2022-01-24 11:29] VITALS: PULSE 96; RESP 19; O2SAT 95
[2022-01-24 11:56] LABS: Cortisol Random 12.8 ug/dL
[2022-01-24 12:45] LABS: Glucose, Whole Blood 179 mg/dL (60-115)
[2022-01-24] MEDS: 0.9 % Sodium Chloride 1,000 ML 100 ML IVCONT (15:03)
[2022-01-24] MEDS: Hydrocortisone Sod Succ/PF 100 MG VIAL IVPUSH (16:00)
[2022-01-24] MEDS: cefTRIAXone sodium 2 GM in 0.9 % Sodium Chloride 50 ML IV (16:00)
[2022-01-24 17:42] LABS: Glucose, Whole Blood 268 mg/dL (60-115)
[2022-01-24] MEDS: Insulin Lispro 100 UNIT/ML 3 ML VIAL SUBCUT ×2 (17:51→22:21)
[2022-01-24 19:21] VITALS: O2SAT 95
[2022-01-24] MEDS: Mirtazapine 30 MG TABLET PO (22:01)
[2022-01-24] MEDS: QUEtiapine Fumarate 25 MG TABLET PO (22:01)
[2022-01-24 22:18] LABS: Glucose, Whole Blood 279 mg/dL (60-115)
[2022-01-25] VITALS (9 sets, daily range): BP systolic 132–173; BP diastolic 52–75; PULSE 70–109; RESP 16–20; TEMP 36.2–36.9; O2SAT 94–98; BMI 32.1
[2022-01-25] MEDS: Hydrocortisone Sod Succ/PF 100 MG VIAL IVPUSH (02:03)
[2022-01-25 03:43] LABS: Glucose, Whole Blood 230 mg/dL (60-115)
[2022-01-25] MEDS: 0.9 % Sodium Chloride 1,000 ML 100 ML IVCONT (04:05)
[2022-01-25] MEDS: Heparin Sodium,Porcine 5,000 UNIT/ML VIAL 5000 UNIT SUBCUT ×3 (04:05→21:45)
[2022-01-25 06:55] LABS: Hemoglobin 8.6 g/dl (14.0-18.0); Mean Corpuscular HGB Conc 30.7 g/dl (31.0-36.0); Mean Corpuscular Hemoglobin 27.4 pg (27.0-33.0); Mean Corpuscular Volume 89.2 fL (80.0-98.0); Mean Platelet Volume 9.9 fL (9.4-12.4); NRBC Pct Auto 0.2 /100WBC (0.0-0.2); Platelet Count 179 X10*3/uL (160-400); Red Blood Count 3.14 X10*6/uL (4.60-5.80); Red Cell Distribution Width 21.3 % (11.0-16.0); White Blood Count 10.8 X10*3/uL (4.8-10.8)
[2022-01-25 07:37] LABS: Glucose, Whole Blood 267 mg/dL (60-115)
[2022-01-25] MEDS: Albuterol Sulfate 90 MCG 8 GM INHALER 1 PUFF INHALE ×2 (07:38→21:47)
[2022-01-25 07:50] LABS: Anion Gap 13 (12-20); Blood Urea Nitrogen 17 mg/dL (9-16); Calcium 8.2 mg/dL (8.4-10.2); Carbon Dioxide 22 mmol/L (22-29); Chloride 109 mmol/L (96-108); Creatinine Clr Calc Pharmacy 84.1; Estimated Glomerular Filt Rate > 60; Glucose Random 259 mg/dL (60-115); Potassium 4.5 mmol/L (3.3-5.1); Sodium 139 mmol/L (135-145)
[2022-01-25] MEDS: predniSONE 5 MG TABLET 25 MG PO (08:50)
[2022-01-25] MEDS: valACYclovir HCL 1,000 MG TABLET 1000 MG PO ×3 (08:50→21:46)
[2022-01-25] MEDS: Gabapentin 300 MG CAPSULE PO ×2 (08:51→21:46)
[2022-01-25] MEDS: Insulin Lispro 100 UNIT/ML 3 ML VIAL SUBCUT ×4 (08:51→21:47)
[2022-01-25] MEDS: azaTHIOprine 50 MG TABLET PO ×3 (08:51→21:46)
[2022-01-25] MEDS: Atorvastatin Calcium 80 MG TABLET PO (08:51)
[2022-01-25 11:57] LABS: Glucose, Whole Blood 296 mg/dL (60-115)
[2022-01-25] MEDS: 0.9 % Sodium Chloride Flush 3 ML SYRINGE IVFLUSH ×2 (15:43→21:46)
--- NOTE | 2022-01-25 15:45 | HO.PM.IMPN ---
Subjective Subjective Date of Service: 01/25/22 Interval History: Resting comfortably in bed offers no acute complaints, no events overnight, no nausea no vomiting, no fevers no chills, no urinary symptoms. Review of Systems Review of Systems: Yes all other systems are reviewed and are negative Physical Exam Vital Signs: Vital Signs: Last Vital Signs Temp 98.2 F 01/25/22 11:13 Pulse 90 01/25/22 11:13 Resp 20 01/25/22 11:13 BP 136/63 01/25/22 11:13 Pulse Ox 95 01/25/22 11:13 O2 Del Method 01/25/22 11:13 O2 Flow Rate 2 01/25/22 11:13 Oxygen Flow Rate 2 01/24/22 19:21 BMI result Body Mass Index 32.1 Const: Other: General awake alert, no acute distress.? Neck supple no JVD. CVS? regular rate rhythm, Respiratory lungs clear to auscultation, no respiratory distress, no wheeze, no rhonchi. Gastrointestinal abdomen soft, obese, nontender, bowel sounds audible, no guarding , no rigidity. Extremities no edema. Neuro nonfocal, moving all 4 extremity, speech clear. Skin no rash Objective Data Active Medications Acetaminophen (Acetaminophen 325 Mg Tablet) 650 mg PO Q6H PRN PRN Reason: Pain, Mild (Pain Scale 1-3) Last Admin: 01/24/22 11:03 Dose: 650 mg Documented By: MARK Albuterol Sulfate (Albuterol Sulfate 90 Mcg 8 Gm Inhaler) 1 puff INHALE RQ4H WHILE AWAKE [facility] Last Admin: 01/25/22 15:32 Dose: Not Given Documented By: MARTI Non-Admin Reason: See Note Atorvastatin Calcium (Atorvastatin Calcium 80 Mg Tablet) 80 mg PO DAILY [facility] Last Admin: 01/25/22 08:51 Dose: 80 mg Documented By: LUIS ANGEL Azathioprine (Azathioprine 50 Mg Tablet) 50 mg PO TID [facility] Last Admin: 01/25/22 15:43 Dose: 50 mg Documented By: LUIS ANGEL Dextrose (Dextrose 50 % 25 Gm/50 Ml Syringe) 25 gm IVPUSH Q15M PRN; Protocol PRN Reason: per Hypoglycemia Standing Ord. Gabapentin (Gabapentin 300 Mg Capsule) 300 mg PO BID [facility] Last Admin: 01/25/22 08:51 Dose: 300 mg Documented By: LUIS ANGEL Glucose (Glucose Gel 15 Gm Gel..Gram.) 15 gm PO Q15M PRN; Protocol PRN Reason: per Hypoglycemia Standing Ord. Heparin Sodium (Porcine) (Heparin Sodium,Porcine 5,000 Unit/Ml Vial) 5,000 unit SUBCUT Q8H [facility] Last Admin: 01/25/22 13:05 Dose: 5,000 unit Documented By: LUIS ANGEL Ceftriaxone Sodium 2 gm/ (Sodium Chloride) 50 mls @ 100 mls/hr IV Q24H [facility] Last Infusion: 01/24/22 17:29 Dose: 0 mls/hr Documented By: MARK Insulin Human Lispro (Insulin Lispro 100 Unit/Ml 3 Ml Vial) 0 unit SUBCUT QIDACHS [facility]; Protocol Last Admin: 01/25/22 13:05 Dose: 6 unit Documented By: LUIS ANGEL Melatonin (Melatonin 3 Mg Tablet) 6 mg PO BEDTIME PRN PRN Reason: Insomnia Mirtazapine (Mirtazapine 30 Mg Tablet) 30 mg PO BEDTIME [facility] Last Admin: 01/24/22 22:01 Dose: 30 mg Documented By: AVERY Non-Formulary Medication (Mycophenolate Mofetil) 1 tab PO BID [facility] Prednisone (Prednisone 5 Mg Tablet) 25 mg PO DAILY [facility] Last Admin: 01/25/22 08:50 Dose: 25 mg Documented By: LUIS ANGEL Pyridostigmine [place] (Pyridostigmine [place] 60 Mg Tablet) 60 mg PO QID [facility] Last Admin: 01/25/22 13:04 Dose: 60 mg Documented By: LUIS ANGEL Quetiapine Fumarate (Quetiapine Fumarate 25 Mg Tablet) 25 mg PO BEDTIME [facility] Last Admin: 01/24/22 22:01 Dose: 25 mg Documented By: AVERY Senna (Sennosides 8.6 Mg Tablet) 17.2 mg PO BEDTIME PRN PRN Reason: Constipation Sodium Chloride (0.9 % Sodium Chloride Flush 3 Ml Syringe) 3 ml IVFLUSH QSHIFT [facility] Last Admin: 01/25/22 15:43 Dose: 3 ml Documented By: LUIS ANGEL Valacyclovir HCl (Valacyclovir Hcl 1,000 Mg Tablet) 1,000 mg PO TID [facility] Last Admin: 01/25/22 15:42 Dose: 1,000 mg Documented By: LUIS ANGEL Labs CBC & Chem 7: 01/25/22 06:28 01/25/22 06:28 Labs: Laboratory Results - last 24 hr 01/24/22 01/24/22 01/25/22 17:38 22:13 03:34 MCV MCH MCHC RDW Plt Count MPV Absolute Nucleated RBC Nucleated RBC % (auto) Anion Gap Estim Creat Clear Calc Estimated GFR POC Glucose 268 H 279 H 230 H Random Glucose Calcium 01/25/22 01/25/22 01/25/22 06:28 06:28 07:26 MCV 89.2 MCH 27.4 MCHC 30.7 L RDW 21.3 H Plt Count 179 MPV 9.9 Absolute Nucleated RBC 0.020 H Nucleated RBC % (auto) 0.2 Anion Gap 13 Estim Creat Clear Calc 84.1 Estimated GFR > 60 POC Glucose 267 H Random Glucose 259 H D Calcium 8.2 L 01/25/22 11:15 MCV MCH MCHC RDW Plt Count MPV Absolute Nucleated RBC Nucleated RBC % (auto) Anion Gap Estim Creat Clear Calc Estimated GFR POC Glucose 296 H Random Glucose Calcium Microbiology Microbiology Results: Microbiology 01/23/22 12:57 Blood Culture - Preliminary Blood - Venous Gram negative jodi 01/23/22 12:57 Blood Culture - Preliminary Blood - Venous Gram negative jodi 01/23/22 16:04 Urine Culture - Final Urine clean catch - Urine oleary top Escherichia coli Assessment and Plan (1) Urinary tract infection: Status: Acute (2) Diabetes mellitus, type 2: Status: Acute (3) Myasthenia gravis: Status: Acute Plan 71-year-old male with a past medical history of hypertension, hyperlipidemia, diabetes, myasthenia gravis presented to the hospital today with a chief complaint of unwitnessed fall.? Noted to have following conditions Unwitnessed fall: Likely due weakness related to sepsis/no syncope Patient denies loss of consciousness neuro examination is nonfocal,CT head showed no acute findings, EKG nonischemic,Initial troponin 90-repeat troponin 116.5 ,Patient denies chest pain Clinically improved. Severe Sepsis/UTI/Bacteremia: Met sepsis criteria due to leukocytosis tachypnea tachycardia, lactic acidosis and soft blood pressure Blood cultures x2 positive for gm negative jodi, urine culture positive for E coli , chest x-ray negative, Follow up final cultures WBC normal, no fevers Continue IV ceftriaxone 2 g day 3 Severe lactic acidosis: in setting of sepsis/dehydration.? Improved with IV fluids.? History of CKD stage III: creatinine at baseline of 1.4. History of hypertension: blood pressure improved random cortisol level normal, DC hydrocortisone placed back on prednisone 25 mg daily, continue to hold amlodipine, and Lasix. History of myasthenia gravis: Continue home mycophenolate, prednisone, pyridostigmine, and hold azathioprine History of diabetes:? Blood sugars trending up, will place on diabetic diet, resume glipizide, continue insulin sliding scale Hold home metformin Obesity recommended low-calorie diet DVT prophylaxis:? Subcu heparin Code status:? DNR/DNI.? Patient will need continued inpatient hospitalization due to severe sepsis/bacteremia requiring IV antibiotics that cannot be done outside hospital setting. Quality Stroke Does the patient have a stroke diagnosis?: No VTE Prior VTE?: No VTE Risk Level:: Medical - moderate - high VTE Device Contraindication: Treatment Not Indicated VTE Drug Contraindication: N/A - Med Ordered
[2022-01-25] MEDS: glipiZIDE 5 MG TABLET PO (16:40)
[2022-01-25] MEDS: cefTRIAXone sodium 2 GM in 0.9 % Sodium Chloride 50 ML IV (16:42)
[2022-01-25 16:51] LABS: Glucose, Whole Blood 417 mg/dL (60-115)
[2022-01-25 21:01] LABS: Glucose, Whole Blood 280 mg/dL (60-115)
[2022-01-25] MEDS: QUEtiapine Fumarate 25 MG TABLET PO (21:46)
[2022-01-25] MEDS: Mirtazapine 30 MG TABLET PO (21:46)
[2022-01-26] MEDS: Heparin Sodium,Porcine 5,000 UNIT/ML VIAL 5000 UNIT SUBCUT ×3 (03:00→21:11)
[2022-01-26 04:00] VITALS: BP 121/57; PULSE 57; RESP 20; TEMP 35.8; O2SAT 98
[2022-01-26 07:33] VITALS: BP 156/75; PULSE 84; RESP 18; TEMP 36.3; O2SAT 98
[2022-01-26 08:01] LABS: Glucose, Whole Blood 95 mg/dL (60-115)
[2022-01-26] MEDS: Albuterol Sulfate 90 MCG 8 GM INHALER 1 PUFF INHALE (08:16)
[2022-01-26 08:18] VITALS: PULSE 73; RESP 20; O2SAT 97
[2022-01-26] MEDS: Gabapentin 300 MG CAPSULE PO ×2 (09:32→21:12)
[2022-01-26] MEDS: predniSONE 5 MG TABLET 25 MG PO (09:32)
[2022-01-26] MEDS: Atorvastatin Calcium 80 MG TABLET PO (09:32)
[2022-01-26] MEDS: valACYclovir HCL 1,000 MG TABLET 1000 MG PO ×3 (09:33→21:11)
[2022-01-26] MEDS: glipiZIDE 5 MG TABLET PO ×2 (09:33→16:22)
[2022-01-26] MEDS: azaTHIOprine 50 MG TABLET PO ×3 (09:33→21:11)
[2022-01-26] MEDS: mycophenolate mofetiL 250 MG CAPSULE 500 MG PO ×2 (09:33→21:11)
[2022-01-26 11:21] VITALS: BP 150/64; PULSE 81; RESP 19; TEMP 36.3; O2SAT 95
[2022-01-26 11:31] LABS: Glucose, Whole Blood 172 mg/dL (60-115)
[2022-01-26] MEDS: Insulin Lispro 100 UNIT/ML 3 ML VIAL SUBCUT ×3 (12:06→21:12)
--- NOTE | 2022-01-26 12:48 | HO.PM.IMPN ---
Subjective Subjective Date of Service: 01/26/22 Interval History: Offers no acute complaints resting comfortably, denies urinary symptoms of urgency frequency, denies abdominal pain, no nausea, no vomiting, no acute overnight events no fevers no chills. Review of Systems Review of Systems: Yes all other systems are reviewed and are negative Physical Exam Vital Signs: Vital Signs: Last Vital Signs Temp 97.4 F 01/26/22 11:21 Pulse 81 01/26/22 11:21 Resp 19 01/26/22 11:21 BP 150/64 H 01/26/22 11:21 Pulse Ox 95 01/26/22 11:21 O2 Del Method 01/26/22 11:21 O2 Flow Rate 3 01/26/22 07:33 Oxygen Flow Rate 2 01/24/22 19:21 BMI result Body Mass Index 32.1 Const: Other: General awake aler t, no acute distre ss.? Neck supple n o JVD. CVS? regula r rate rhythm, Res piratory lungs surjit ar to auscultation , no respiratory d istress, no wheeze , no rhonchi. Mariann rointestinal abdom en soft, obese, no ntender, bowel maite nds audible, no gu arding , no rigidi ty. Extremities no edema. Neuro nonf ocal, moving all 4 extremity, speech clear,sometimes s tutter Skin no antonio h Objective Data Active Medications Acetaminophen (Acetaminophen 325 Mg Tablet) 650 mg PO Q6H PRN PRN Reason: Pain, Mild (Pain Scale 1-3) Last Admin: 01/24/22 11:03 Dose: 650 mg Documented By: MARK Albuterol Sulfate (Albuterol Sulfate 90 Mcg 8 Gm Inhaler) 1 puff INHALE RQ4H WHILE AWAKE [facility] Last Admin: 01/26/22 10:56 Dose: Not Given Documented By: MARTI Non-Admin Reason: See Note Atorvastatin Calcium (Atorvastatin Calcium 80 Mg Tablet) 80 mg PO DAILY [facility] Last Admin: 01/26/22 09:32 Dose: 80 mg Documented By: JOHNNY-KATARINA Azathioprine (Azathioprine 50 Mg Tablet) 50 mg PO TID [facility] Last Admin: 01/26/22 09:33 Dose: 50 mg Documented By: JOHNNY-KATARINA Dextrose (Dextrose 50 % 25 Gm/50 Ml Syringe) 25 gm IVPUSH Q15M PRN; Protocol PRN Reason: per Hypoglycemia Standing Ord. Gabapentin (Gabapentin 300 Mg Capsule) 300 mg PO BID [facility] Last Admin: 01/26/22 09:32 Dose: 300 mg Documented By: JOHNNY-KATARINA Glipizide (Glipizide 5 Mg Tablet) 5 mg PO BIDWM [facility] Last Admin: 01/26/22 09:33 Dose: 5 mg Documented By: JOHNNY-KATARINA Glucose (Glucose Gel 15 Gm Gel..Gram.) 15 gm PO Q15M PRN; Protocol PRN Reason: per Hypoglycemia Standing Ord. Heparin Sodium (Porcine) (Heparin Sodium,Porcine 5,000 Unit/Ml Vial) 5,000 unit SUBCUT Q8H [facility] Last Admin: 01/26/22 12:07 Dose: 5,000 unit Documented By: JOHNNY-KATARINA Ceftriaxone Sodium 2 gm/ (Sodium Chloride) 50 mls @ 100 mls/hr IV Q24H [facility] Last Infusion: 01/25/22 17:34 Dose: 0 mls/hr Documented By: LUIS ANGEL Insulin Human Lispro (Insulin Lispro 100 Unit/Ml 3 Ml Vial) 0 unit SUBCUT QIDACHS [facility]; Protocol Last Admin: 01/26/22 12:06 Dose: 4 unit Documented By: JOHNNY-KATARINA Melatonin (Melatonin 3 Mg Tablet) 6 mg PO BEDTIME PRN PRN Reason: Insomnia Mirtazapine (Mirtazapine 30 Mg Tablet) 30 mg PO BEDTIME [facility] Last Admin: 01/25/22 21:46 Dose: 30 mg Documented By: THOMAS Mycophenolate Mofetil (Mycophenolate Mofetil 250 Mg Capsule) 500 mg PO BID [facility] Last Admin: 01/26/22 09:33 Dose: 500 mg Documented By: JOHNNY-KATARINA Prednisone (Prednisone 5 Mg Tablet) 25 mg PO DAILY [facility] Last Admin: 01/26/22 09:32 Dose: 25 mg Documented By: JOHNNY-KATARINA Pyridostigmine [place] (Pyridostigmine [place] 60 Mg Tablet) 60 mg PO QID [facility] Last Admin: 01/26/22 12:11 Dose: 60 mg Documented By: JOHNNY-KATARINA Quetiapine Fumarate (Quetiapine Fumarate 25 Mg Tablet) 25 mg PO BEDTIME [facility] Last Admin: 01/25/22 21:46 Dose: 25 mg Documented By: THOMAS Senna (Sennosides 8.6 Mg Tablet) 17.2 mg PO BEDTIME PRN PRN Reason: Constipation Sodium Chloride (0.9 % Sodium Chloride Flush 3 Ml Syringe) 3 ml IVFLUSH QSHIFT [facility] Last Admin: 01/26/22 07:22 Dose: Not Given Documented By: NOLAN Non-Admin Reason: assessed Valacyclovir HCl (Valacyclovir Hcl 1,000 Mg Tablet) 1,000 mg PO TID [facility] Last Admin: 01/26/22 09:33 Dose: 1,000 mg Documented By: NOLAN Labs CBC & Chem 7: 01/25/22 06:28 01/25/22 06:28 Labs: Laboratory Results - last 24 hr 01/25/22 01/25/22 01/26/22 16:16 20:54 07:39 POC Glucose 417 H* 280 H 95 01/26/22 11:26 POC Glucose 172 H Microbiology Microbiology Results: Microbiology 01/23/22 12:57 Blood Culture - Final Blood - Venous Escherichia coli 01/23/22 12:57 Blood Culture - Final Blood - Venous Escherichia coli Assessment and Plan (1) Urinary tract infection: Status: Acute (2) Diabetes mellitus, type 2: Status: Acute (3) Myasthenia gravis: Status: Acute Plan 71-year-old male with a past medical history of hypertension, hyperlipidemia, diabetes, myasthenia gravis presented to the hospital today with a chief complaint of unwitnessed fall.? Noted to have following conditions Unwitnessed fall: Likely due weakness related to sepsis/no syncope Patient denies loss of consciousness neuro examination is nonfocal,CT head showed no acute findings, EKG nonischemic,Initial troponin 90-repeat troponin 116.5 ,Patient denies chest pain Clinically improved. Recommend out of bed to chair Severe Sepsis due to UTI/E,coli Bacteremia: Met sepsis criteria due to leukocytosis, tachypnea, tachycardia, lactic acidosis and soft blood pressure Blood cultures x2 positive for E coli, urine culture positive for E coli , chest x-ray negative, Follow up final cultures WBC normalized, no fevers Continue IV ceftriaxone 2 g day 4 will transition to by mouth Ceftin for total 2 weeks if remained hemodynamically stable in next 24 hours Acute on chronic normocytic anemia Hematocrit dropped likely dilutional and due to infection follow CBC/stool guaiac Severe lactic acidosis: in setting of sepsis/dehydration.? Improved with IV fluids.? History of CKD stage III: creatinine at baseline History of hypertension: blood pressure improved random cortisol level normal, s/p hydrocortisone placed back on prednisone 25 mg daily, will resume amlodipine, since blood pressure trending up, hold Lasix. History of myasthenia gravis: Continue home mycophenolate, prednisone, pyridostigmine, and hold azathioprine History of diabetes:? on diabetic diet, glipizide, continue insulin sliding scale Hold home metformin Obesity recommended low-calorie diet DVT prophylaxis:? Subcu heparin Code status:? DNR/DNI.? Patient will need continued inpatient hospitalization due to severe sepsis/bacteremia requiring IV antibiotics Quality Stroke Does the patient have a stroke diagnosis?: No VTE Prior VTE?: No VTE Risk Level:: Medical - moderate - high VTE Device Contraindication: Treatment Not Indicated VTE Drug Contraindication: N/A - Med Ordered
--- NOTE | 2022-01-26 13:26 | MHC.CM.PN ---
IMM 01/26/22, CM MET W/PT AND PT'S /HCP CRISTO [phone] AT BEDSIDE, PER PT'S SHE AND PT CONT TO LIVE W/DTR, ELOISA AND 12YO GDTR, PT USES A WALKER, HAS GRAB BARS IN BR AND RAILS BY STAIRS, PT HAS [facility], 22[facility] HRS W/[facility] AND [facility] 2HRS/WK, PT'S DID CALL DTR WHILE CM WAS DOING INTERVIEW TO VERIFY LISTED SERVICES, PER DTR//PT PLAN WILL BE TO RETURN HOME W/RESUMP OF SERVICES, DTR DID REQUEST PT BE WALKED OR GET OUT OF BED WHILE INPT HE DID NOT PREVIOUS ADMIT AND HE WAS VERY WEEK. PCP VERIFIED RE[facility] HARGROVE, [facility] X2, AND HCP CRISTO ON FILE FROM PREVIOUS VISIT. D/C PLAN: RESUMP OF ABOVE SERVICES W/FAMILY FOR TRANSPORT.
[2022-01-26] MEDS: amLODIPine Besylate 5 MG TABLET PO (14:05)
[2022-01-26 15:11] VITALS: BMI 32.1
--- NOTE | 2022-01-26 15:18 | MHC.CLN ---
NUTRITION PATIENT WITH STAGE II WOUND TO BUTTOCKS. ADDED GLUCERNA BID (474 KCALS, 20 G PROTEIN) TO PROMOTE WOUND HEALING.
[2022-01-26] MEDS: cefTRIAXone sodium 2 GM in 0.9 % Sodium Chloride 50 ML IV (15:31)
[2022-01-26 15:48] VITALS: BP 148/68; PULSE 80; RESP 16; TEMP 36.8; O2SAT 95
[2022-01-26 15:57] LABS: Glucose, Whole Blood 335 mg/dL (60-115)
[2022-01-26 19:28] VITALS: BP 137/62; PULSE 74; RESP 16; TEMP 36.2; O2SAT 96
[2022-01-26 19:48] LABS: Glucose, Whole Blood 299 mg/dL (60-115)
[2022-01-26] MEDS: Acetaminophen 325 MG TABLET 650 MG PO (21:11)
[2022-01-26] MEDS: Mirtazapine 30 MG TABLET PO (21:11)
[2022-01-26] MEDS: QUEtiapine Fumarate 25 MG TABLET PO (21:12)
[2022-01-26] MEDS: 0.9 % Sodium Chloride Flush 3 ML SYRINGE IVFLUSH (21:13)
[2022-01-27] VITALS (9 sets, daily range): BP systolic 129–161; BP diastolic 62–72; PULSE 72–90; RESP 18–20; TEMP 35.6–36.8; O2SAT 95–99
[2022-01-27 07:33] LABS: Glucose, Whole Blood 97 mg/dL (60-115)
[2022-01-27] MEDS: Albuterol Sulfate 90 MCG 8 GM INHALER 1 PUFF INHALE ×3 (08:18→15:58)
[2022-01-27 08:45] LABS: Lactic Acid 1.8 mmol/L (0.5-2.0)
[2022-01-27 08:46] LABS: Hematocrit 31.3 % (42.0-52.0); Hemoglobin 9.8 g/dl (14.0-18.0); Mean Corpuscular HGB Conc 31.3 g/dl (31.0-36.0); Mean Corpuscular Hemoglobin 27.8 pg (27.0-33.0); Mean Corpuscular Volume 88.7 fL (80.0-98.0); Mean Platelet Volume 9.5 fL (9.4-12.4); NRBC Pct Auto 0.7 /100WBC (0.0-0.2); Platelet Count 186 X10*3/uL (160-400); Red Blood Count 3.53 X10*6/uL (4.60-5.80); Red Cell Distribution Width 20.3 % (11.0-16.0)
[2022-01-27] MEDS: predniSONE 5 MG TABLET 25 MG PO (09:30)
[2022-01-27] MEDS: Atorvastatin Calcium 80 MG TABLET PO (09:30)
[2022-01-27] MEDS: mycophenolate mofetiL 250 MG CAPSULE 500 MG PO ×2 (09:30→23:38)
[2022-01-27] MEDS: amLODIPine Besylate 5 MG TABLET PO (09:30)
[2022-01-27] MEDS: valACYclovir HCL 1,000 MG TABLET 1000 MG PO (09:31)
[2022-01-27] MEDS: Gabapentin 300 MG CAPSULE PO ×2 (09:31→23:38)
[2022-01-27] MEDS: glipiZIDE 5 MG TABLET PO ×2 (09:31→16:47)
[2022-01-27] MEDS: azaTHIOprine 50 MG TABLET PO ×3 (09:31→23:38)
[2022-01-27 11:27] LABS: Glucose, Whole Blood 150 mg/dL (60-115)
[2022-01-27] MEDS: Heparin Sodium,Porcine 5,000 UNIT/ML VIAL 5000 UNIT SUBCUT ×2 (12:20→23:39)
--- NOTE | 2022-01-27 12:36 | P.PNIM_ITS ---
Subjective Subjective Date of Service: 01/28/22 Interval History: Complaining of headache and dizziness, symptoms going on some time, denies associated visual symptoms no weakness no numbness, symptoms not worse with standing or sitting, dizziness gets better with sitting up, denies chest pain, no palpitations no fevers no chills no urinary symptoms of urgency or frequency no other acute issues overnight. Review of Systems Review of Systems: Yes all other systems are reviewed and are negative Physical Exam Vital Signs: Vital Signs: Last Vital Signs Temp 97.0 F 01/27/22 11:57 Pulse 85 01/27/22 11:57 Resp 20 01/27/22 11:57 BP 161/70 H 01/27/22 11:57 Pulse Ox 95 01/27/22 11:57 O2 Del Method 01/27/22 11:57 O2 Flow Rate 3 01/26/22 07:33 Oxygen Flow Rate 2 01/24/22 19:21 BMI result Body Mass Index 32.1 Const: Other: General awake alert, no acute distress.? Neck supple no JVD. CVS? regular rate rhythm, Respiratory lungs clear to auscultation, no respiratory distress, no wheeze, no rhonchi. Gastrointestinal abdomen soft, obese, nontender, bowel sounds audible, no guarding , no rigidity. Extremities no edema. Neuro nonfocal, moving all 4 extremity, speech clear. Skin no rash/right forearm ecchymosis Objective Data Active Medications Acetaminophen (Acetaminophen 325 Mg Tablet) 650 mg PO Q6H PRN PRN Reason: Pain, Mild (Pain Scale 1-3) Last Admin: 01/26/22 21:11 Dose: 650 mg Documented By: LISA Albuterol Sulfate (Albuterol Sulfate 90 Mcg 8 Gm Inhaler) 1 puff INHALE RQ4H WHILE AWAKE [facility] Last Admin: 01/27/22 11:46 Dose: 1 puff Documented By: ISRAEL Amlodipine Besylate (Amlodipine Besylate 5 Mg Tablet) 5 mg PO DAILY [facility]; Protocol Last Admin: 01/27/22 09:30 Dose: 5 mg Documented By: NOLAN Atorvastatin Calcium (Atorvastatin Calcium 80 Mg Tablet) 80 mg PO DAILY [facility] Last Admin: 01/27/22 09:30 Dose: 80 mg Documented By: NOLAN Azathioprine (Azathioprine 50 Mg Tablet) 50 mg PO TID [facility] Last Admin: 01/27/22 09:31 Dose: 50 mg Documented By: JOHNNY-KATARINA Dextrose (Dextrose 50 % 25 Gm/50 Ml Syringe) 25 gm IVPUSH Q15M PRN; Protocol PRN Reason: per Hypoglycemia Standing Ord. Gabapentin (Gabapentin 300 Mg Capsule) 300 mg PO BID [facility] Last Admin: 01/27/22 09:31 Dose: 300 mg Documented By: JOHNNY-KATARINA Glipizide (Glipizide 5 Mg Tablet) 5 mg PO BIDWM [facility] Last Admin: 01/27/22 09:31 Dose: 5 mg Documented By: JOHNNY-KATARINA Glucose (Glucose Gel 15 Gm Gel..Gram.) 15 gm PO Q15M PRN; Protocol PRN Reason: per Hypoglycemia Standing Ord. Heparin Sodium (Porcine) (Heparin Sodium,Porcine 5,000 Unit/Ml Vial) 5,000 unit SUBCUT Q8H [facility] Last Admin: 01/27/22 12:20 Dose: 5,000 unit Documented By: NOLAN Ceftriaxone Sodium 2 gm/ (Sodium Chloride) 50 mls @ 100 mls/hr IV Q24H [facility] Last Infusion: 01/26/22 16:15 Dose: 0 mls/hr Documented By: NOLAN Insulin Human Lispro (Insulin Lispro 100 Unit/Ml 3 Ml Vial) 0 unit SUBCUT QIDACHS [facility]; Protocol Last Admin: 01/27/22 12:10 Dose: Not Given Documented By: NOLAN Non-Admin Reason: poc oor Melatonin (Melatonin 3 Mg Tablet) 6 mg PO BEDTIME PRN PRN Reason: Insomnia Mirtazapine (Mirtazapine 30 Mg Tablet) 30 mg PO BEDTIME [facility] Last Admin: 01/26/22 21:11 Dose: 30 mg Documented By: LISA Mycophenolate Mofetil (Mycophenolate Mofetil 250 Mg Capsule) 500 mg PO BID [facility] Last Admin: 01/27/22 09:30 Dose: 500 mg Documented By: NOLAN Prednisone (Prednisone 5 Mg Tablet) 25 mg PO DAILY [facility] Last Admin: 01/27/22 09:30 Dose: 25 mg Documented By: NOLAN Pyridostigmine [place] (Pyridostigmine [place] 60 Mg Tablet) 60 mg PO QID [facility] Last Admin: 01/27/22 12:21 Dose: 60 mg Documented By: JOHNNY-SOFROLANDO Quetiapine Fumarate (Quetiapine Fumarate 25 Mg Tablet) 25 mg PO BEDTIME [facility] Last Admin: 01/26/22 21:12 Dose: 25 mg Documented By: LISA Senna (Sennosides 8.6 Mg Tablet) 17.2 mg PO BEDTIME PRN PRN Reason: Constipation Sodium Chloride (0.9 % Sodium Chloride Flush 3 Ml Syringe) 3 ml IVFLUSH QSHIFT [facility] Last Admin: 01/27/22 07:11 Dose: Not Given Documented By: JOHNNY-KATARINA Non-Admin Reason: assessed Valacyclovir HCl (Valacyclovir Hcl 1,000 Mg Tablet) 1,000 mg PO TID [facility] Last Admin: 01/27/22 09:31 Dose: 1,000 mg Documented By: NOLAN Labs CBC & Chem 7: 01/27/22 08:27 01/25/22 06:28 Labs: Laboratory Results - last 24 hr 01/26/22 01/26/22 01/27/22 15:51 19:31 07:18 MCV MCH MCHC RDW Plt Count MPV Absolute Nucleated RBC Nucleated RBC % (auto) POC Glucose 335 H 299 H 97 Lactic Acid 01/27/22 01/27/22 01/27/22 08:27 08:27 11:19 MCV 88.7 MCH 27.8 MCHC 31.3 RDW 20.3 H Plt Count 186 MPV 9.5 Absolute Nucleated RBC 0.040 H Nucleated RBC % (auto) 0.7 H POC Glucose 150 H Lactic Acid 1.8 Microbiology Microbiology Results: Microbiology 01/23/22 12:57 Blood Culture - Final Blood - Venous Escherichia coli Assessment and Plan (1) Urinary tract infection: Status: Acute (2) Diabetes mellitus, type 2: Status: Acute (3) Myasthenia gravis: Status: Acute Plan 71-year-old male with a past medical history of hypertension, hyperlipidemia, d iabetes, myasthenia gravis presented to the hospital today with a chief complaint of unwitnessed fall.? Noted to have following conditions Unwitnessed fall: Likely due weakness related to sepsis/no syncope Patient denies loss of consciousness neuro examination is nonfocal,CT head showed no acute findings, EKG nonischemic,Initial troponin 90-repeat troponin 116.5 ,Patient denies chest pain Clinically improved. Recommend out of bed to chair/PT eval Severe Sepsis due to UTI/E,coli Bacteremia: Met sepsis criteria due to leukocytosis, tachypnea, tachycardia, lactic acidosis and soft blood pressure Blood cultures x2 positive for E coli, urine culture positive for E coli , chest x-ray negative, Follow up final cultures WBC normalized, no fevers on IV ceftriaxone 2 g day 5 will transition to by mouth Ceftin for total 2 weeks if remained hemodynamically stable in next 24 hours Acute on chronic normocytic anemia Hematocrit improved to baseline Severe lactic acidosis: in setting of sepsis/dehydration. Resolved with IV fluid Headache and dizziness patient recently started on valcyclovir spoke with it was given for h zoster, patient finish 7 day course will DC History of CKD stage III: creatinine at baseline History of hypertension: blood pressure improved random cortisol level normal, s/p hydrocortisone placed back on prednisone 25 mg daily, resume home medication amlodipine 10 mg/valsartan History of myasthenia gravis: Continue home mycophenolate, prednisone, pyr idostigmine, and hold azathioprine History of diabetes:? on diabetic diet, glipizide, continue insulin sliding scale Hold home metformin Obesity recommended low-calorie diet DVT prophylaxis:? Subcu heparin Code status:? DNR/DNI.? Patient will need continued inpatient hospitalization due to severe sepsis/bacteremia requiring IV antibiotics Quality Stroke Does the patient have a stroke diagnosis?: No VTE Prior VTE?: No VTE Risk Level:: Medical - moderate - high VTE Device Contraindication: Treatment Not Indicated VTE Drug Contraindication: N/A - Med Ordered
[2022-01-27] MEDS: cefTRIAXone sodium 2 GM in 0.9 % Sodium Chloride 50 ML IV (16:47)
[2022-01-27 17:13] LABS: Glucose, Whole Blood 312 mg/dL (60-115)
[2022-01-27] MEDS: Insulin Lispro 100 UNIT/ML 3 ML VIAL SUBCUT ×2 (17:58→23:39)
[2022-01-27 21:36] LABS: Glucose, Whole Blood 220 mg/dL (60-115)
[2022-01-27] MEDS: Mirtazapine 30 MG TABLET PO (23:38)
[2022-01-27] MEDS: QUEtiapine Fumarate 25 MG TABLET PO (23:38)
[2022-01-27] MEDS: 0.9 % Sodium Chloride Flush 3 ML SYRINGE IVFLUSH (23:39)
[2022-01-28] VITALS: BP 165/74; PULSE 80; RESP 18; TEMP 35.8; O2SAT 97
[2022-01-28 04:00] VITALS: BP 156/66; PULSE 72; RESP 18; TEMP 36.6; O2SAT 96
[2022-01-28 07:25] VITALS: BP 150/69; PULSE 81; RESP 20; TEMP 36.4; O2SAT 97
[2022-01-28 07:51] LABS: Glucose, Whole Blood 101 mg/dL (60-115)
[2022-01-28] MEDS: glipiZIDE 5 MG TABLET PO (08:24)
[2022-01-28] MEDS: mycophenolate mofetiL 250 MG CAPSULE 500 MG PO (08:24)
[2022-01-28] MEDS: Atorvastatin Calcium 80 MG TABLET PO (08:25)
[2022-01-28] MEDS: Furosemide 20 MG TABLET PO (08:25)
[2022-01-28] MEDS: azaTHIOprine 50 MG TABLET PO (08:25)
[2022-01-28] MEDS: predniSONE 5 MG TABLET 25 MG PO (08:25)
[2022-01-28] MEDS: Gabapentin 300 MG CAPSULE PO (08:25)
[2022-01-28] MEDS: amLODIPine Besylate 10 MG TABLET PO (08:25)
[2022-01-28] MEDS: 0.9 % Sodium Chloride Flush 3 ML SYRINGE IVFLUSH (08:26)
--- NOTE | 2022-01-28 11:22 | MHC.CM.PN ---
IMM 01/28/22 Male 71 DX UTI. Per MD rounds, pt is ready to discharge today. A PT eval has been ordered. DP home with resumption of Homecare services. Family will provide transportation home. VNA update and notification of discharge sent to [facility] health care.
[2022-01-28 11:23] VITALS: BP 139/64; PULSE 84; RESP 20; TEMP 36.5; O2SAT 96
[2022-01-28 11:32] LABS: Glucose, Whole Blood 161 mg/dL (60-115)
[2022-01-28] MEDS: Insulin Lispro 100 UNIT/ML 3 ML VIAL SUBCUT (12:00)
[2022-01-28] MEDS: Heparin Sodium,Porcine 5,000 UNIT/ML VIAL 5000 UNIT SUBCUT (12:02)
--- NOTE | 2022-01-28 13:40 | PM.DS ---
DS: Providers Provider Date of Service: 01/28/22 Date of admission: 01/23/22 19:21 Primary care physician: Justino Lara MD DS: Diagnosis Discharge Diagnosis (1) Urinary tract infection: Status: Acute (2) Diabetes mellitus, type 2: Status: Acute (3) Myasthenia gravis: Status: Acute DS: Summary Hospital Course Hospital Course: history of presenting illness Date of Service: 01/23/22 Chief Complaint: Unwitnessed 71-year-old male with a past medical history of hypertension, hyperlipidemia, diabetes, myasthenia gravis presented to the hospital today with a chief complaint of unwitnessed fall.? Reportedly patient complaining of having nausea and abdominal discomfort.? Reports patient always has abdominal discomfort but has more nausea yesterday.? Today patient developed fevers.? And when he went to the bathroom when he tried to sit on the side of the bathtub he fell onto the back.? Denies any loss of consciousness.? Patient denies any chest pain palpitations lightheadedness or dizziness.? .? Review of all other systems is limited ER course: Per ER team patient noted to be mildly hypotensive, tachycardic, noted to have severely elevated lactate, urinalysis abnormal consistent with UTI.? Patient was given IV fluids per sepsis protocol.? Blood pressure remained stable on the soft side.? Admitted to the hospital for further management.? Patient was given IV antibiotics. hospital course 71-year-old male with a past medical history of hypertension, hyperlipidemia, diabetes, myasthenia gravis presented to the hospital with a chief complaint of unwitnessed fall.? Noted to have following conditions Unwitnessed fall Likely due weakness related to severe sepsis/no syncope, patient denied loss of consciousness neuro examination is nonfocal,CT head showed no acute findings, EKG nonischemic,Initial troponin 90-repeat troponin 116.5 , likely due to sepsis, patient denies chest pain, seen by Physical therapy they recommend to continue home PT. Severe Sepsis due to UTI/E,coli? Bacteremia, patient med sepsis criteria due to leukocytosis, tachypnea, tachycardia, lactic acidosis and soft blood pressure,Blood cultures x2 positive for E coli, urine culture positive for E coli , chest x-ray negative, patient treated with IV ceftriaxone WBC normalized, since patient is hemodynamically stable he is being discharged home on total 2 weeks of by mouth antibiotics. Acute on chronic normocytic anemia Hematocrit at baseline Severe lactic acidosis: in setting of sepsis/dehydration.? Resolved with IV fluid. Headache and dizziness Spoke with patient has daily headaches recommend outpatient follow-up with primary care physician to adjust home medications. Head CT unremarkable History of CKD stage III:? creatinine at baseline History of hypertension:? blood pressure improved random cortisol level normal, s/p hydrocortisone placed back on prednisone 25 mg daily, resume home medication amlodipine 10 mg/valsartan History of myasthenia gravis: Continue home mycophenolate, prednisone, pyridostigmine, and azathioprine History of diabetes:? on diabetic diet,? glipizide, and metformin Obesity recommended low-calorie diet Time Spent with Patient Time attestation: Total time spent providing and/or coordinating discharge services: Discharge coordination time: Greater than 30 minutes Quality: Safe Use of Opioids Does Pt have an Active Cancer Diagnosis on the Problem List?: No Quality: Stroke Does the patient have a stroke diagnosis?: No Physical Exam Vital Signs: Vital Signs: Last Vital Signs Temp 97.7 F 01/28/22 11:23 Pulse 84 01/28/22 11:23 Resp 20 01/28/22 11:23 BP 139/64 01/28/22 11:23 Pulse Ox 96 01/28/22 11:23 O2 Del Method 01/28/22 11:23 O2 Flow Rate 3 01/26/22 07:33 Oxygen Flow Rate 2 01/24/22 19:21 BMI result Body Mass Index 32.1 Const: Other: General awake alert, no acute distress.? Neck supple no JVD. CVS? regular rate rhythm, Respiratory lungs clear to auscultation, no respiratory distress, no wheeze, no rhonchi. Gastrointestinal abdomen soft, obese, nontender, bowel sounds audible, no guarding , no rigidity. Extremities no edema. Neuro nonfocal, moving all 4 extremity, speech stuttering at times. Skin no rash DS: Data Data Completed and Pending Labs on day of discharge: Laboratory Results - last 24 hr 01/27/22 01/27/22 01/28/22 17:04 21:26 07:28 POC Glucose 312 H 220 H 101 01/28/22 11:27 POC Glucose 161 H Discharge Plan Discharge Patient Disposition: Home Health Service Discharge Diagnosis: severe sepsis due to E coli UTI bacteremia due to E coli severe lactic acidosis unsteady gait and fall myasthenia gravis Referrals: Justino Lara MD [Primary Care Provider] - 1 Week Discharge Medications: New cefuroxime axetil 500 mg tablet 500 mg PO BID Qty: 18 0RF Continued rosuvastatin 20 mg tablet 20 mg PO DAILY 90 Days Qty: 90 0RF quetiapine 25 mg tablet 1 tab PO BEDTIME valsartan 80 mg tablet 1 tab PO DAILY azathioprine 50 mg tablet 50 mg PO TID amlodipine 10 mg tablet 10 mg PO DAILY pyridostigmine bromide 60 mg tablet 1 tab PO QID loperamide 2 mg capsule 1 tab PO BID mycophenolate mofetil 500 mg tablet 1 tab PO BID gabapentin 300 mg capsule 1 cap PO BID clotrimazole 1 % cream 1 appl topical BID prednisone 10 mg tablet 25 mg PO DAILY glipizide 5 mg tablet 5 mg PO BID furosemide 40 mg tablet 1 tab PO DAILY triamcinolone acetonide 0.1 % cream 1 appl topical BID mirtazapine 30 mg tablet 1 tab PO BEDTIME albuterol sulfate [Ventolin HFA] 90 mcg/actuation HFA aerosol inhaler 1 puff inhalation Q4H (DME) lancets [FreeStyle Lancets] 28 gauge misc See Rx Instructions Not Applicable DAILY Qty: 100 Rx Instructions: As directed (DME) FreeStyle Lite Strips Strip See Rx Instructions Not Applicable DAILY Qty: 10 Rx Instructions: As directed metformin 500 mg tablet 1,000 mg PO BID Discontinued valacyclovir 1 gram tablet 1 tab PO TID Discharge Orders: Discharge Order (Routine); Ordered 01/28/22 Ordered By: Jose Orantes Diet: Low fat, low cholesterol Activity on Discharge: As tolerated Stand Alone Forms: Patient Portal Discharge page Care Plan Goals: Take by mouth antibiotic as prescribed end date February 06, continue home physical therapy Health Concerns: take all home medication as prescribed Plan of Treatment: follow-up with primary care physician in 1-2 weeks Assessment: as per discharge summary
== END 2022-01-28 13:58 | disposition home health service (06) | DRG 872 ==
LOC: HO.ED 17:20 → HO.EDOVER 19:29 → HO.IMC 01-25 02:28
PROVIDERS: Admitting Provider Hospitalist; Emergency Provider Emergency Medicine Emergency Medical Services; PCP Internal Medicine; Visit Provider Hospitalist
DX: A41.9 Sepsis, unspecified organism (principal); N39.0 Urinary tract infection, site not specified; E87.2 Acidosis; Z66 Do not resuscitate; R65.20 Severe sepsis without septic shock; I12.9 Hypertensive chronic kidney disease with stage 1 through stage 4 chronic kidney disease, or unspecified chronic kidney disease; E11.22 Type 2 diabetes mellitus with diabetic chronic kidney disease; N18.30 Chronic kidney disease, stage 3 unspecified; G70.00 Myasthenia gravis without (acute) exacerbation; E66.9 Obesity, unspecified; D63.1 Anemia in chronic kidney disease; Z68.32 Body mass index [BMI] 32.0-32.9, adult; B96.20 Unspecified Escherichia coli [E. coli] as the cause of diseases classified elsewhere; E86.0 Dehydration; Z86.74 Personal history of sudden cardiac arrest; Z87.891 Personal history of nicotine dependence; Z87.820 Personal history of traumatic brain injury; Z79.52 Long term (current) use of systemic steroids; Z79.84 Long term (current) use of oral hypoglycemic drugs; Z79.899 Other long term (current) drug therapy
CPT/HCPCS: 36415; 70450; 71045; 73502; 80048; 80053; 80307; 81001; 81003; 82077; 82533; 82550; 82947; 83519; 83605; 83690; 83880; 84484; 85025; 85027; 85610; 85652; 85730; 87040; 87077; 87086; 87088; 87186; 87205; 87635; 93005; 94640; 94664; 96361; 96374; 96375; 97161; 99285; J0696; J1885

== ENCOUNTER 2022-02-06 15:28 | Outpatient (REF) | payer MEDICARE, MEDICAID, SELFPAY | END 2022-02-06 15:29 | disposition home or self-care (01) | LOC: HO.LNP 15:28 | PROVIDERS: Visit Provider Internal Medicine | DX: N39.0 Urinary tract infection, site not specified (principal) | CPT/HCPCS: 87086 ==

== ENCOUNTER 2022-03-11 12:29 | Outpatient (REF) | payer MEDICARE, MEDICAID, SELFPAY ==
[2022-03-11 14:26] LABS: Estimated Average Glucose 157 mg/dL; Hemoglobin A1c % 7.1 %
[2022-03-11 14:46] LABS: Alanine Aminotransferase 67 U/L (0-40); Albumin Level 4.2 g/dL (3.5-5.0); Alkaline Phosphatase 57 U/L (39-117); Aspartate Amino Transferase 56 U/L (5-37); Bilirubin Direct 0.2 mg/dL (0.0-0.5); Bilirubin Total 0.4 mg/dL (0.0-1.0); Cholesterol 131 mg/dL; Glucose Fasting 84 mg/dL (60-99); HDL Cholesterol 54 mg/dL; LDL Cholesterol Calculated 9 mg/dl; Total Protein 6.6 g/dL (6.5-8.0); Triglycerides 344 mg/dL
== END 2022-03-11 12:30 | disposition home or self-care (01) ==
LOC: HO.HMGCLDS 12:29
PROVIDERS: PCP Internal Medicine; Visit Provider Internal Medicine
DX: E11.9 Type 2 diabetes mellitus without complications (principal); E78.00 Pure hypercholesterolemia, unspecified
CPT/HCPCS: 36415; 80061; 80076; 82947; 83036

== ENCOUNTER 2022-03-26 12:50 | Inpatient (IN) | payer MEDICARE, MEDICAID, SELFPAY ==
--- NOTE | ~2022-03-26 | CT_ITS ---
EXAMINATION: CT ABDOMEN AND PELVIS WITHOUT CONTRAST CLINICAL INFORMATION: Left lower quadrant abdominal pain, elevated labs COMPARISON: CT abdomen and pelvis 10/08/2019 TECHNIQUE: Multidetector volumetric imaging was performed from the superior aspect of the liver through the pubic symphysis. Sagittal and coronal reformatted images were obtained on the technologist's workstation. This CT examination was performed using dose optimization techniques as appropriate, variously including the following: *Automated exposure control *Adjustment of mA and/or kV according to patient size (this includes techniques or standardized protocols for targeted exams where dose is matched to indication/reason for exam; i.e. extremities or head) *Use of iterative reconstruction technique DLP: 1142 mGy-cm FINDINGS: LUNG BASES: Minimal basilar atelectasis versus minimal interstitial fibrotic change. Right coronary artery vascular calcifications. LIVER, GALLBLADDER, AND BILIARY TREE: Hepatic hypoattenuation/steatosis. No liver lesion or biliary ductal dilation. Incompletely distended gallbladder containing numerous calcified stones. No pericholecystic inflammatory change. PANCREAS: Unremarkable. SPLEEN: Unremarkable. ADRENAL GLANDS: Unremarkable. KIDNEYS AND URETERS: The kidneys are normal in size, shape, and attenuation. No hydronephrosis, hydroureter, or calculi seen. No perinephric stranding. BLADDER: Unremarkable. GASTROINTESTINAL TRACT: Sigmoid diverticulosis. Essentially identical to the comparison CT of 10/08/2019 is a curvilinear area of soft tissue presumably scarring adjacent to the left aspect of the sigmoid colon on series 3 image 60 through 62. No colonic wall thickening or other pericolonic inflammatory change to suggest specific evidence of acute diverticulitis. No dilated bowel loops. Appendix is not discretely visualized. No inflammatory change at the cecal base. No ascites or free air. ABDOMINAL WALL: No significant hernia is appreciated. LYMPH NODES: No lymphadenopathy. VASCULAR: Extensive atherosclerotic vascular calcifications. Mildly ectatic infrarenal abdominal aorta measuring 2.5 cm in diameter. No aneurysm. PELVIC VISCERA: Unremarkable. OSSEOUS STRUCTURES: No acute fracture or suspicious osseous lesion. Multilevel degenerative disc disease most advanced at L4-L5. Right paracentral disc herniation at L2-L3 noted. CT/CT abdomen pelvis wo IV con IMPRESSION: 1. Sigmoid diverticulosis. Curvilinear focus of soft tissue in the pericolonic fat adjacent to the sigmoid colon, is essentially identical in appearance to prior 10/08/2019, likely focal area of pericolonic scarring from prior diverticulitis. No specific findings of acute diverticulitis. 2. No other acute intra-abdominal process identified. 3. Hepatic steatosis and cholelithiasis. 4. Incidental finding of a right paracentral disc herniation at the L2-L3 level. Fleischner guidelines were followed.
--- NOTE | ~2022-03-26 | XR_ITS ---
EXAMINATION: XR CHEST CLINICAL INFORMATION: CHF COMPARISON: 01/23/2022 TECHNIQUE: Frontal view of the chest was obtained. FINDINGS: Lung volumes are decreased. Heart size within normal limits. Mild upper zone redistribution and interstitial prominence suggesting mild CHF although hypoinflated lungs accentuate. Left basilar atelectasis and possible small left pleural effusion is seen. XR/XR chest 1V IMPRESSION: Hypoinflated lungs with left basilar atelectasis and question of mild vascular congestion.
--- NOTE | 2022-03-26 13:49 | ECG_ITS ---
Test Reason : weakness Blood Pressure : / mmHG Vent. Rate : 091 BPM Atrial Rate : 091 BPM P-R Int : 132 ms QRS Dur : 086 ms QT Int : 360 ms P-R-T Axes : 059 -34 037 degrees QTc Int : 442 ms Normal sinus rhythm with sinus arrhythmia Left axis deviation Abnormal ECG When compared with ECG of 23-JAN-2022 12:37, Right bundle branch block is no longer Present Heart rate has decreased Referred By: Mihaela Walker Electronically Signed By:MAHESH COSTA
[2022-03-26 13:58] VITALS: BP 150/70; BP 168/77; PULSE 110; PULSE 96; RESP 17; TEMP 36.4; O2SAT 96; BMI 33.7
--- NOTE | 2022-03-26 14:03 | ED.GENADULT ---
HPI - General Adult General Chief complaint: Extremity Problem Stated complaint: ? Leg Infection Time Seen by Provider: 03/26/22 13:35 Source: patient and EMS Mode of arrival: EMS History of Present Illness HPI narrative: 71-year-old male with a past medical history of diabetes, HLD, HTN, myasthenia gravis, MO, TBI, presenting to the ED via EMS complaining of bilateral LE pitting edema, erythema and LLE weeping. Patient is poor historian due to baseline TBI, spoke with who reports symptoms started this a.m. Patient also reports abdominal pain. Denies fever, SOB, CP Onset (ago): day(s) Related Data Home Medications Medication Instructions Recorded Confirmed amlodipine 10 mg tablet 10 mg PO DAILY 06/02/20 03/26/22 azathioprine 50 mg tablet 50 mg PO TID 06/02/20 03/26/22 pyridostigmine bromide 60 mg tablet 1 tab PO QID 06/02/20 03/26/22 quetiapine 25 mg tablet 1 tab PO BEDTIME 06/02/20 03/26/22 valsartan 80 mg tablet 1 tab PO DAILY 06/02/20 03/26/22 clotrimazole 1 % topical cream 1 appl topical BID 08/24/21 03/26/22 gabapentin 300 mg capsule 1 cap PO BID 08/24/21 03/26/22 loperamide 2 mg capsule 1 tab PO BID 08/24/21 03/26/22 mycophenolate mofetil 500 mg tablet 1 tab PO BID 08/24/21 03/26/22 metformin 500 mg tablet 1,000 mg PO BID 09/02/21 03/26/22 prednisone 10 mg tablet 25 mg PO DAILY 11/30/21 03/26/22 albuterol sulfate 90 mcg/actuation 2 puff inhalation Q4H PRN Wheezing 01/23/22 03/26/22 aerosol inhaler (Ventolin HFA) furosemide 40 mg tablet 1 tab PO DAILY 01/23/22 03/26/22 mirtazapine 30 mg tablet 1 tab PO BEDTIME 01/23/22 03/26/22 triamcinolone acetonide 0.1 % 1 appl topical BID 01/23/22 03/26/22 topical cream rosuvastatin 10 mg tablet 1 tab PO DAILY 03/26/22 03/26/22 Allergies Allergy/AdvReac Type Severity Reaction Status Date / Time No Known Allergies Allergy Verified 09/02/21 14:18 [No Known Allergies*] Review of Systems Review of Systems: Constitutional: No Fever, No Malaise Cardiovascular: No Chest Pain, No SOB, No Orthopnea, + Edema Respiratory: No Cough Gastrointestinal: No Nausea, No Vomiting, No Diarrhea, No Constipation, + Abdominal pain Skin: + Skin Lesions, No rash Neuro: No Weakness ROS limited due to patient's baseline mental status Yes all other systems are reviewed and are negative Constitutional: Constitutional: Reports as per [facility] Past Medical History Attestation statement: The following information was validated with the patient. Medical History (Updated 03/26/22 @ 20:58 by Ge Richard MD) Aspiration pneumonia Diabetes Diabetes mellitus, type 2 Erythema of lower extremity Hypercholesteremia Hypertension Intractable nausea and vomiting Myasthenia gravis Myasthenia gravis Myasthenia gravis Myocardial infarction Obesity TBI (traumatic brain injury) Family History Family History Other No family history of coronary artery disease Social History Social History Household Members: Family Housing: House Do you presently have visiting nurse or other home services: Yes Unable to assess alcohol history related to: Unknown Alcohol intake: never Patient Tobacco Use Status: Former Tobacco user Tobacco use type: Cigarette Second Hand Smoke Exposure: Yes Substance Use Type: Former Substance User Advance Directives: Yes Advance Directives on File: Yes Advance Directives Date on File: 05/05/21 service: No Current occupational status: retired Physical Exam ED Vital Signs: Vital Signs - 24 hr 03/26/22 13:58 Temperature 97.6 F Pulse Rate 110 H Respiratory Rate 17 Blood Pressure 168/77 H Pulse Oximetry 96 Oxygen Delivery Method Room Air BMI result Body Mass Index 33.7 Const General: cooperative and no acute distress Limitations: other limitations HENMT Head: Yes normal to inspection and Yes atraumatic Ears: hearing grossly normal bilaterally General nose exam: Normal external nose present Face and sinus: Yes normal facial exam Eyes General: appearance normal, both eyes and all related structures EOM: EOMs intact bilaterally Neck Neck: Yes normal visual inspection and Yes no meningeal signs Resp Effort & Inspection: normal respiratory effort and no respiratory distress Auscultation: clear to auscultation bilaterally Cardio Rate: regular rate and tachycardic Heart sounds: S1 normal heart sound present and S2 normal heart sound present GI Inspection: Yes normal to inspection Palpation (GI): Soft to palpation, Tenderness to palpation present (GI) in the LLQ; with no rebound tenderness, no guarding and not rigid General: Yes no CVA tenderness Back/Spine/Pelvis Back: no CVA tenderness Skin Rashes: no rashes Neuro General: tone normal and no meningeal signs Extrem Other: Please refer to images of a bilateral lower extremities with noted 4+ pitting edema, erythema, and weeping to LLE. Distal pulses intact. No streaking Course Course Course Narrative: -1509--no leukocytosis. H&H at patient's baseline. Lactic acid elevated to 9.5 which appears acute on chronic could be from DKA vs metformin use. Patient does not appear septic at this time. Will avoid IVF due to fluid overload, bilateral 4+ pitting edema/weeping noted. -BUN chronically elevated. glucose 488 > 5 mg of IV insulin given. Noted anion gap of 28 with a CO2 17. Acetone negative -AST/ALT chronically elevated. CRP minimally elevated 1754---XR chest 1V IMPRESSION: Hypoinflated lungs with left basilar atelectasis and question of mild vascular congestion. -lactic acid improved to 8.2 without intervention -1823--repeat POC 290 1848--CT abdomen pelvis wo IV con IMPRESSION: ? 1. Sigmoid diverticulosis. Curvilinear focus of soft tissue in the pericolonic fat adjacent to the sigmoid colon, is essentially identical in appearance to prior 10/08/2019, likely focal area of pericolonic scarring from prior diverticulitis. No specific findings of acute diverticulitis. 2. No other acute intra-abdominal process identified. 3. Hepatic steatosis and cholelithiasis. 4. Incidental finding of a right paracentral disc herniation at the L2-L3 level. ? Fleischner guidelines were followed. >> plan to admit for further management Medical Decision Making MDM Narrative Medical decision making narrative: 71-year-old male with a past medical history of diabetes, HLD, HTN, myasthenia gravis, MO, TBI, presenting to the ED via EMS complaining of bilateral LE pitting edema, erythema and LLE weeping. Patient is poor historian due to baseline TBI. On exam tachycardic likely from pain, afebrile, please refer to images above. Concern for cellulitis vs CHF. Lower suspicion for DVT/PE Low suspicion for severe sepsis at this time Plan: EKG, labs, lactic/blood cultures, CXR, empiric IV antibiotics, anticipated admission Medical Records Medical records reviewed: Yes I reviewed the patient's medical records. Lab Data Lab results reviewed: Yes I reviewed the patient's lab results. Result diagrams: 03/26/22 14:36 03/26/22 21:12 Labs: Lab Results 03/26/22 03/26/22 03/26/22 Range/Units 14:36 14:36 14:36 WBC 8.9 (4.8-10.8) X10*3/uL RBC 4.26 L D (4.60-5.80) X10*6/uL Hgb 11.9 L D (14.0-18.0) g/dl Hct 37.9 L D (42.0-52.0) % MCV 89.0 (80.0-98.0) fL MCH 27.9 (27.0-33.0) pg MCHC 31.4 (31.0-36.0) g/dl RDW 17.5 H (11.0-16.0) % Plt Count 217 (160-400) X10*3/uL MPV 9.3 L (9.4-12.4) fL Immature Gran % (Auto) 2.5 H (0.0-0.4) % Neut % (Auto) 88.6 H (45-73) % Lymph % (Auto) 4.6 L (20-40) % [place] % (Auto) 4.0 (2-11) % Eos % (Auto) 0.2 (0-4) % Baso % (Auto) 0.1 (0-2) % Lymph # (Auto) 0.4 L (1.2-4.9) X10*3/uL [place] # (Auto) 0.4 (0.1-1.2) X10*3/uL Eos # (Auto) 0.0 (0.0-0.4) X10*3/uL Baso # (Auto) 0.0 (0.0-0.2) X10*3/uL Abs Immat Gran (auto) 0.22 H (0.00-0.03) X10*3/uL Absolute Neuts (auto) 7.9 (2.0-8.3) x10*3/uL Absolute Nucleated RBC 0.000 (0.0-0.012) X10*3/uL Nucleated RBC % (auto) 0.0 (0.0-0.2) /100WBC ESR (0-15) MM/HR PT 10.8 (10.0-13.1) SEC INR 0.9 (0.9-1.1) Sodium 137 (135-145) mmol/L Potassium 5.2 H (3.3-5.1) mmol/L Chloride 97 (96-108) mmol/L Carbon Dioxide 17 L (22-29) mmol/L Anion Gap 28 H (12-20) BUN 25 H (9-16) mg/dL Creatinine 1.20 (0.5-1.4) mg/dL Estim Creat Clear Calc 61.0 Estimated GFR 59 POC Glucose (60-115) mg/dL Random Glucose 488 H* (60-115) mg/dL Lactic Acid (0.5-2.0) mmol/L Lactic Acid F/U @ 2Hr (0.5-2.0) mmol/L Calcium 9.6 D (8.4-10.2) mg/dL Magnesium 2.0 (1.6-2.6) mg/dL Total Bilirubin 0.6 (0.0-1.0) mg/dL Direct Bilirubin 0.3 (0.0-0.5) mg/dL AST 38 H (5-37) U/L ALT 54 H (0-40) U/L Alkaline Phosphatase 51 (39-117) U/L C-Reactive Protein 0.54 H (< or = 0.50) mg/dL B-Natriuretic Peptide (<100) pg/mL Total Protein 6.4 L (6.5-8.0) g/dL Albumin 4.2 (3.5-5.0) g/dL Urine Color Urine Appearance Urine pH (5.0-9.0) Ur Specific [place] (1.005-1.025) Urine Protein (Neg-Trace) mg/dL Urine Glucose (UA) (Negative) mg/dL Urine Ketones (Negative) mg/dL Urine Blood (Negative) Urine Nitrite (Negative) Ur Leukocyte Esterase (Negative) Urine RBC (0-2) /HPF Urine WBC (0-5) /HPF Ur Squamous Epith Cells (0-2) /HPF Urine Bacteria (None Seen) Hyaline Casts (0-2) /LPF Acetone, Qual (Negative) COVID-19 (MANISHA) (Negative) COVID-19 Clin Com 03/26/22 03/26/22 03/26/22 Range/Units 14:36 14:36 14:36 WBC (4.8-10.8) X10*3/uL RBC (4.60-5.80) X10*6/uL Hgb (14.0-18.0) g/dl Hct (42.0-52.0) % MCV (80.0-98.0) fL MCH (27.0-33.0) pg MCHC (31.0-36.0) g/dl RDW (11.0-16.0) % Plt Count (160-400) X10*3/uL MPV (9.4-12.4) fL Immature Gran % (Auto) (0.0-0.4) % Neut % (Auto) (45-73) % Lymph % (Auto) (20-40) % [place] % (Auto) (2-11) % Eos % (Auto) (0-4) % Baso % (Auto) (0-2) % Lymph # (Auto) (1.2-4.9) X10*3/uL [place] # (Auto) (0.1-1.2) X10*3/uL Eos # (Auto) (0.0-0.4) X10*3/uL Baso # (Auto) (0.0-0.2) X10*3/uL Abs Immat Gran (auto) (0.00-0.03) X10*3/uL Absolute Neuts (auto) (2.0-8.3) x10*3/uL Absolute Nucleated RBC (0.0-0.012) X10*3/uL Nucleated RBC % (auto) (0.0-0.2) /100WBC ESR (0-15) MM/HR PT (10.0-13.1) SEC INR (0.9-1.1) Sodium (135-145) mmol/L Potassium (3.3-5.1) mmol/L Chloride (96-108) mmol/L Carbon Dioxide (22-29) mmol/L Anion Gap (12-20) BUN (9-16) mg/dL Creatinine (0.5-1.4) mg/dL Estim Creat Clear Calc Estimated GFR POC Glucose (60-115) mg/dL Random Glucose (60-115) mg/dL Lactic Acid 9.5 H* (0.5-2.0) mmol/L Lactic Acid F/U @ 2Hr (0.5-2.0) mmol/L Calcium (8.4-10.2) mg/dL Magnesium (1.6-2.6) mg/dL Total Bilirubin (0.0-1.0) mg/dL Direct Bilirubin (0.0-0.5) mg/dL AST (5-37) U/L ALT (0-40) U/L Alkaline Phosphatase (39-117) U/L C-Reactive Protein (< or = 0.50) mg/dL B-Natriuretic Peptide 27 (<100) pg/mL Total Protein (6.5-8.0) g/dL Albumin (3.5-5.0) g/dL Urine Color Urine Appearance Urine pH (5.0-9.0) Ur Specific [place] (1.005-1.025) Urine Protein (Neg-Trace) mg/dL Urine Glucose (UA) (Negative) mg/dL Urine Ketones (Negative) mg/dL Urine Blood (Negative) Urine Nitrite (Negative) Ur Leukocyte Esterase (Negative) Urine RBC (0-2) /HPF Urine WBC (0-5) /HPF Ur Squamous Epith Cells (0-2) /HPF Urine Bacteria (None Seen) Hyaline Casts (0-2) /LPF Acetone, Qual (Negative) COVID-19 (MANISHA) Negative (Negative) COVID-19 Clin Com See Note 03/26/22 03/26/22 03/26/22 Range/Units 14:36 15:00 15:28 WBC (4.8-10.8) X10*3/uL RBC (4.60-5.80) X10*6/uL Hgb (14.0-18.0) g/dl Hct (42.0-52.0) % MCV (80.0-98.0) fL MCH (27.0-33.0) pg MCHC (31.0-36.0) g/dl RDW (11.0-16.0) % Plt Count (160-400) X10*3/uL MPV (9.4-12.4) fL Immature Gran % (Auto) (0.0-0.4) % Neut % (Auto) (45-73) % Lymph % (Auto) (20-40) % [place] % (Auto) (2-11) % Eos % (Auto) (0-4) % Baso % (Auto) (0-2) % Lymph # (Auto) (1.2-4.9) X10*3/uL [place] # (Auto) (0.1-1.2) X10*3/uL Eos # (Auto) (0.0-0.4) X10*3/uL Baso # (Auto) (0.0-0.2) X10*3/uL Abs Immat Gran (auto) (0.00-0.03) X10*3/uL Absolute Neuts (auto) (2.0-8.3) x10*3/uL Absolute Nucleated RBC (0.0-0.012) X10*3/uL Nucleated RBC % (auto) (0.0-0.2) /100WBC ESR 40 H (0-15) MM/HR PT (10.0-13.1) SEC INR (0.9-1.1) Sodium (135-145) mmol/L Potassium (3.3-5.1) mmol/L Chloride (96-108) mmol/L Carbon Dioxide (22-29) mmol/L Anion Gap (12-20) BUN (9-16) mg/dL Creatinine (0.5-1.4) mg/dL Estim Creat Clear Calc Estimated GFR POC Glucose (60-115) mg/dL Random Glucose (60-115) mg/dL Lactic Acid (0.5-2.0) mmol/L Lactic Acid F/U @ 2Hr (0.5-2.0) mmol/L Calcium (8.4-10.2) mg/dL Magnesium (1.6-2.6) mg/dL Total Bilirubin (0.0-1.0) mg/dL Direct Bilirubin (0.0-0.5) mg/dL AST (5-37) U/L ALT (0-40) U/L Alkaline Phosphatase (39-117) U/L C-Reactive Protein (< or = 0.50) mg/dL B-Natriuretic Peptide (<100) pg/mL Total Protein (6.5-8.0) g/dL Albumin (3.5-5.0) g/dL Urine Color Yellow Urine Appearance Clear Urine pH 6.0 (5.0-9.0) Ur Specific [place] >= 1.030 H (1.005-1.025) Urine Protein Negative (Neg-Trace) mg/dL Urine Glucose (UA) >=1000 H (Negative) mg/dL Urine Ketones Trace (Negative) mg/dL Urine Blood Negative (Negative) Urine Nitrite Negative (Negative) Ur Leukocyte Esterase Negative (Negative) Urine RBC 0-2 (0-2) /HPF Urine WBC 0-5 (0-5) /HPF Ur Squamous Epith Cells 0-2 (0-2) /HPF Urine Bacteria None Seen (None Seen) Hyaline Casts 0-2 (0-2) /LPF Acetone, Qual Negative (Negative) COVID-19 (MANISHA) (Negative) COVID-19 Clin Com 03/26/22 03/26/22 03/26/22 Range/Units 16:22 18:23 18:34 WBC (4.8-10.8) X10*3/uL RBC (4.60-5.80) X10*6/uL Hgb (14.0-18.0) g/dl Hct (42.0-52.0) % MCV (80.0-98.0) fL MCH (27.0-33.0) pg MCHC (31.0-36.0) g/dl RDW (11.0-16.0) % Plt Count (160-400) X10*3/uL MPV (9.4-12.4) fL Immature Gran % (Auto) (0.0-0.4) % Neut % (Auto) (45-73) % Lymph % (Auto) (20-40) % [place] % (Auto) (2-11) % Eos % (Auto) (0-4) % Baso % (Auto) (0-2) % Lymph # (Auto) (1.2-4.9) X10*3/uL [place] # (Auto) (0.1-1.2) X10*3/uL Eos # (Auto) (0.0-0.4) X10*3/uL Baso # (Auto) (0.0-0.2) X10*3/uL Abs Immat Gran (auto) (0.00-0.03) X10*3/uL Absolute Neuts (auto) (2.0-8.3) x10*3/uL Absolute Nucleated RBC (0.0-0.012) X10*3/uL Nucleated RBC % (auto) (0.0-0.2) /100WBC ESR (0-15) MM/HR PT (10.0-13.1) SEC INR (0.9-1.1) Sodium (135-145) mmol/L Potassium (3.3-5.1) mmol/L Chloride (96-108) mmol/L Carbon Dioxide (22-29) mmol/L Anion Gap (12-20) BUN (9-16) mg/dL Creatinine (0.5-1.4) mg/dL Estim Creat Clear Calc Estimated GFR POC Glucose 290 H (60-115) mg/dL Random Glucose (60-115) mg/dL Lactic Acid 8.2 H* (0.5-2.0) mmol/L Lactic Acid F/U @ 2Hr 6.8 H* (0.5-2.0) mmol/L Calcium (8.4-10.2) mg/dL Magnesium (1.6-2.6) mg/dL Total Bilirubin (0.0-1.0) mg/dL Direct Bilirubin (0.0-0.5) mg/dL AST (5-37) U/L ALT (0-40) U/L Alkaline Phosphatase (39-117) U/L C-Reactive Protein (< or = 0.50) mg/dL B-Natriuretic Peptide (<100) pg/mL Total Protein (6.5-8.0) g/dL Albumin (3.5-5.0) g/dL Urine Color Urine Appearance Urine pH (5.0-9.0) Ur Specific [place] (1.005-1.025) Urine Protein (Neg-Trace) mg/dL Urine Glucose (UA) (Negative) mg/dL Urine Ketones (Negative) mg/dL Urine Blood (Negative) Urine Nitrite (Negative) Ur Leukocyte Esterase (Negative) Urine RBC (0-2) /HPF Urine WBC (0-5) /HPF Ur Squamous Epith Cells (0-2) /HPF Urine Bacteria (None Seen) Hyaline Casts (0-2) /LPF Acetone, Qual (Negative) COVID-19 (MANISHA) (Negative) COVID-19 Clin Com Critical Care Time Critical Care Time Critical Care Time: Yes Total Critical Care Time: 50 Attestation: I have personally provided critical care time exclusive of time spent on separately billable procedures. Time includes review of lab data, radiology results, discussion with consultants, and monitoring for potential decompensation. Intervention performed as documented. Discharge Plan Discharge Clinical Impression: Cellulitis, Acute hyperglycemia, Leg edema, CHF (congestive heart failure) Patient Disposition: Admitted As Inpatient Sepsis Bolus Exclusion Sepsis Bolus Exclusion CHF/Renal Failure This patient met severe sepsis criteria due to the following condition(s):: Lactate>=4mmol/L In my clinical judgement the administration of 30 ml/kg of crystalloid would be detrimental to this patient due to the patient's following conditions:: Concern for fluid overload Replace the 30 mls/kg with (*zero amount not acceptable): Crystalloids amount given in mls: (rate must be at least 150cc/hr): 0 Colloids amount given in mls:: 50
--- NOTE | 2022-03-26 14:27 | PC.NURSE ---
pt's face is beet red.
[2022-03-26 14:49] LABS: MANUAL DIFF FLAG NO
[2022-03-26 14:51] LABS: Basophils Percent Auto 0.1 % (0-2); Eosinophils Percent Auto 0.2 % (0-4); Hematocrit 37.9 % (42.0-52.0); Hemoglobin 11.9 g/dl (14.0-18.0); Imm Gran Abs Auto 0.22 X10*3/uL (0.00-0.03); Imm Gran Pct Auto 2.5 % (0.0-0.4); Lymphocytes Absolute Auto 0.4 X10*3/uL (1.2-4.9); Lymphocytes Percent Auto 4.6 % (20-40); Mean Corpuscular HGB Conc 31.4 g/dl (31.0-36.0); Mean Corpuscular Hemoglobin 27.9 pg (27.0-33.0); Mean Platelet Volume 9.3 fL (9.4-12.4); Monocytes Absolute Auto 0.4 X10*3/uL (0.1-1.2); Neutrophils Absolute Auto 7.9 x10*3/uL (2.0-8.3); Neutrophils Percent Auto 88.6 % (45-73); Platelet Count 217 X10*3/uL (160-400); Red Blood Count 4.26 X10*6/uL (4.60-5.80); Red Cell Distribution Width 17.5 % (11.0-16.0); White Blood Count 8.9 X10*3/uL (4.8-10.8)
[2022-03-26 15:03] LABS: INTERNATIONAL NORM RATIO 0.9 (0.9-1.1); Prothrombin Time 10.8 SEC (10.0-13.1)
[2022-03-26 15:04] LABS: Lactic Acid 9.5 mmol/L (0.5-2.0)
[2022-03-26 15:10] LABS: Alanine Aminotransferase 54 U/L (0-40); Albumin Level 4.2 g/dL (3.5-5.0); Alkaline Phosphatase 51 U/L (39-117); Aspartate Amino Transferase 38 U/L (5-37); Bilirubin Direct 0.3 mg/dL (0.0-0.5); Bilirubin Total 0.6 mg/dL (0.0-1.0); Blood Urea Nitrogen 25 mg/dL (9-16); C Reactive Protein 0.54 mg/dL (< or = 0.50); Calcium 9.6 mg/dL (8.4-10.2); Estimated Glomerular Filt Rate 59; Glucose Random 488 mg/dL (60-115); Total Protein 6.4 g/dL (6.5-8.0)
[2022-03-26 15:11] LABS: B Type Natriuretic Peptide 27 pg/mL (<100)
[2022-03-26 15:18] LABS: Appearance Urine Clear; Color Urine Yellow; Glucose Urine UA >=1000 mg/dL (Negative); Leukocyte Esterase Urine Negative (Negative); Nitrite Urine Negative (Negative); Specific Gravity - Urine >= 1.030 (1.005-1.025); UMIC TRIGGER UACC YES; Urine Blood Negative (Negative); Urine Ketones Trace mg/dL (Negative); Urine Protein Negative (Neg-Trace)
--- NOTE | 2022-03-26 15:18 | PHA.MEDREC ---
Pharmacy Consult ? Medication Reconciliation Pharmacy has completed the medication reconciliation.
[2022-03-26 15:22] LABS: Anion Gap 28 (12-20); Carbon Dioxide 17 mmol/L (22-29); Chloride 97 mmol/L (96-108); Potassium 5.2 mmol/L (3.3-5.1); Sodium 137 mmol/L (135-145)
[2022-03-26 15:23] LABS: Bacteria Urine None Seen (None Seen); Hyaline Casts Urine 0-2 /LPF (0-2); RBC Urine 0-2 /HPF (0-2); Squamous Epithelial Cell Urine 0-2 /HPF (0-2); WBC Urine 0-5 /HPF (0-5)
[2022-03-26 15:40] LABS: Erythrocyte Sedimentation Rate 40 MM/HR (0-15)
[2022-03-26 15:45] LABS: COVID-19 Test Negative (Negative); IDNOW Serial# 9DB6401D
[2022-03-26] MEDS: Furosemide 40 MG/4 ML VIAL IVPUSH (15:50)
[2022-03-26] MEDS: cefTRIAXone sodium 1 GM in 0.9 % Sodium Chloride 50 ML IV (15:50)
[2022-03-26] MEDS: Insulin Regular, Human 100 UNIT/ML 3 ML VIAL IVPUSH ×2 (15:51→20:53)
[2022-03-26 16:46] LABS: Reflex Lactate? Lactic Acid Added
[2022-03-26 16:48] LABS: Lactic Acid 8.2 mmol/L (0.5-2.0)
[2022-03-26 17:10] LABS: Acetone, serum QL Negative (Negative)
[2022-03-26 18:27] LABS: Reflex Lactate? Lactic Acid Added
[2022-03-26 18:37] LABS: Glucose, Whole Blood 290 mg/dL (60-115)
[2022-03-26 19:11] LABS: ~Lactic Acid-LAB USE ONLY 6.8 mmol/L (0.5-2.0)
[2022-03-26 20:37] LABS: Reflex Lactate? 2 Y
--- NOTE | 2022-03-26 20:41 | PM.IMHP ---
History of Present Illness Date of Service: 03/26/22 Chief Complaint: Right lower extremity redness This is a 71-year-old male with a pertinent history of traumatic brain injury, type 2 diabetes mellitus, myasthenia gravis, essential hypertension, mixed hyperlipidemia who presents to the emergency department by EMS for right lower extremity redness, swelling and drainage. Patient is a poor historian and states that this has been ongoing for a while. Unable to contact at this time. As per chart review, symptoms started 24 hours prior to presentation. Patient denies any complaints at the time of my evaluation. No orthopnea, PND, shortness of breath, chest pain. No new leg swelling. States he has had decreased p.o. intake over the last few days but is unable to give specifics. Patient also denies fever, chills, changes in urinary or bowel habits In the emergency department, labs were significant for hyperglycemia and significant lactic acidosis. Review of Systems Review of Systems: Unable to obtain [facility] Medical History (Updated 03/26/22 @ 20:58 by Ge Richard MD) Aspiration pneumonia Diabetes Diabetes mellitus, type 2 Erythema of lower extremity Hypercholesteremia Hypertension Intractable nausea and vomiting Myasthenia gravis Myasthenia gravis Myasthenia gravis Myocardial infarction Obesity TBI (traumatic brain injury) Family History Other No family history of coronary artery disease Social History Household Members: Family Housing: House Do you presently have visiting nurse or other home services: Yes Unable to assess alcohol history related to: Unknown Alcohol intake: never Patient Tobacco Use Status: Former Tobacco user Tobacco use type: Cigarette Second Hand Smoke Exposure: Yes Substance Use Type: Former Substance User Advance Directives: Yes Advance Directives on File: Yes Advance Directives Date on File: 05/05/21 service: No Current occupational status: retired Meds Allergies Allergy/AdvReac Type Severity Reaction Status Date / Time No Known Allergies Allergy Verified 09/02/21 14:18 [No Known Allergies*] Active Medications: Current Medications Acetaminophen (Acetaminophen 325 Mg Tablet) 650 mg PO Q6H PRN PRN Reason: Pain, Mild (Pain Scale 1-3) Albuterol Sulfate (Albuterol Sulfate 90 Mcg 8 Gm Inhaler) 2 puff INHALE Q4H PRN PRN Reason: Wheezing Azathioprine (Azathioprine 50 Mg Tablet) 50 mg PO TID [facility] Clotrimazole (Clotrimazole 1 % Cream 15 Gm Tube) 1 appl TOPICAL BID PELON; Protocol Dextrose (Dextrose 50 % 25 Gm/50 Ml Syringe) 25 gm IVPUSH Q15M PRN; Protocol PRN Reason: per Hypoglycemia Standing Ord. Enoxaparin Sodium (Enoxaparin Sodium 40 Mg/0.4 Ml Syringe) 40 mg SUBCUT Q24H [facility] Gabapentin (Gabapentin 300 Mg Capsule) 300 mg PO BID [facility] Glucose (Glucose Gel 15 Gm Gel..Gram.) 15 gm PO Q15M PRN; Protocol PRN Reason: per Hypoglycemia Standing Ord. Sodium Chloride (Ns) 2,934 mls @ 2,934 mls/hr 30 ml/kg infuse over 1 hr (2934 ml) IV .Q1H STA Stop: 03/26/22 21:07 Last Admin: 03/26/22 20:27 Dose: 2,934 mls/hr Vancomycin HCl 1,500 mg/ (Sodium Chloride) 500 mls @ 333.333 mls/hr IV POSTOP ONE Stop: 03/26/22 21:55 Insulin Human Lispro (Insulin Lispro 100 Unit/Ml 3 Ml Vial) 0 unit SUBCUT QIDACHS [facility]; Protocol Stop: 03/27/22 20:31 Mirtazapine (Mirtazapine 30 Mg Tablet) 30 mg PO BEDTIME [facility] Non-Formulary Medication (Mycophenolate Mofetil) 1 tab PO BID [facility] Ondansetron HCl (Ondansetron Hcl 4 Mg/2 Ml Vial) 4 mg IVPUSH Q8H PRN PRN Reason: Nausea and Vomiting Pharmacy Consult (Consult Rx Perform Med Rec) 1 each MISCELLANE ONCE PRN PRN Reason: Consult order Pharmacy Consult (Consult Rx Vancomycin Dosing) 1 each MISCELLANE DAILY PRN PRN Reason: Consult order Pharmacy Consult (Consult Rx Vancomycin Dosing) 1 each MISCELLANE DAILY PRN PRN Reason: Consult order Prednisone (Prednisone 5 Mg Tablet) 25 mg PO DAILY [facility] Pyridostigmine [place] (Pyridostigmine [place] 60 Mg Tablet) 60 mg PO QID [facility] Quetiapine Fumarate (Quetiapine Fumarate 25 Mg Tablet) 25 mg PO BEDTIME [facility] Senna (Sennosides 8.6 Mg Tablet) 17.2 mg PO BEDTIME PRN PRN Reason: Constipation Sodium Chloride (0.9 % Sodium Chloride Flush 3 Ml Syringe) 3 ml IVFLUSH QSHIFT [facility] Triamcinolone Acetonide (Triamcinolone Acet 0.1 % Cream 15 Gm Tube) 1 appl TOPICAL BID PELON; Protocol Home Medications Medication Instructions Recorded Confirmed Last Taken Type amlodipine 10 mg tablet 10 mg PO DAILY 06/02/20 03/26/22 08/24/21 History azathioprine 50 mg tablet 50 mg PO TID 06/02/20 03/26/22 08/24/21 History pyridostigmine bromide 60 mg tablet 1 tab PO QID 06/02/20 03/26/22 08/24/21 History quetiapine 25 mg tablet 1 tab PO BEDTIME 06/02/20 03/26/22 08/24/21 History valsartan 80 mg tablet 1 tab PO DAILY 06/02/20 03/26/22 08/24/21 History clotrimazole 1 % topical cream 1 appl topical BID 08/24/21 03/26/22 08/24/21 History gabapentin 300 mg capsule 1 cap PO BID 08/24/21 03/26/22 08/24/21 History loperamide 2 mg capsule 1 tab PO BID 08/24/21 03/26/22 08/24/21 History mycophenolate mofetil 500 mg tablet 1 tab PO BID 08/24/21 03/26/22 08/24/21 History metformin 500 mg tablet 1,000 mg PO BID 09/02/21 03/26/22 Unknown History prednisone 10 mg tablet 25 mg PO DAILY 11/30/21 03/26/22 Unknown History albuterol sulfate 90 mcg/actuation 2 puff inhalation Q4H PRN Wheezing 01/23/22 03/26/22 Unknown History aerosol inhaler (Ventolin HFA) furosemide 40 mg tablet 1 tab PO DAILY 01/23/22 03/26/22 Unknown History mirtazapine 30 mg tablet 1 tab PO BEDTIME 01/23/22 03/26/22 Unknown History triamcinolone acetonide 0.1 % 1 appl topical BID 01/23/22 03/26/22 Unknown History topical cream rosuvastatin 10 mg tablet 1 tab PO DAILY 03/26/22 03/26/22 Unknown History Physical Exam Vital Signs and Narrative: Vital Signs: Last Vital Signs Temp 97.6 F 03/26/22 13:58 Pulse 110 H 03/26/22 13:58 Resp 17 03/26/22 13:58 BP 168/77 H 03/26/22 13:58 Pulse Ox 96 03/26/22 13:58 O2 Del Method 03/26/22 13:58 BMI result Body Mass Index 33.7 Elderly white male lying in bed in no distress Neck supple, no JVD Tachycardic with regular rhythm, S1-S2 heard Decreased breath sound at bases, no wheezing or crackles appreciated Abdomen soft nontender, no guarding, no rigidity Patient is awake, alert and oriented to self, disoriented to time and place; Skin: Right lower extremity with erythema, warmth and purulent drainage, left lower extremity with erythema Psych: Normal mood Bilateral pitting edema of lower extremity Results Labs CBC and Chem 7: 03/26/22 14:36 03/26/22 21:12 Labs: Laboratory Results - last 24 hr 03/26/22 03/26/22 03/26/22 14:36 14:36 14:36 MCV 89.0 MCH 27.9 MCHC 31.4 RDW 17.5 H Plt Count 217 MPV 9.3 L Immature Gran % (Auto) 2.5 H Neut % (Auto) 88.6 H Lymph % (Auto) 4.[address] [place] % (Auto) 4.0 Eos % (Auto) 0.2 Baso % (Auto) 0.1 Lymph # (Auto) 0.[address] [place] # (Auto) 0.4 Eos # (Auto) 0.0 Baso # (Auto) 0.0 Abs Immat Gran (auto) 0.22 H Absolute Neuts (auto) 7.9 Absolute Nucleated RBC 0.000 Nucleated RBC % (auto) 0.0 ESR PT 10.8 INR 0.9 Anion Gap 28 H Estim Creat Clear Calc 61.0 Estimated GFR 59 POC Glucose Random Glucose 488 H* Lactic Acid Lactic Acid F/U @ 2Hr Calcium 9.6 D Magnesium 2.0 Total Bilirubin 0.6 Direct Bilirubin 0.3 AST 38 H ALT 54 H Alkaline Phosphatase 51 C-Reactive Protein 0.54 H B-Natriuretic Peptide Total Protein 6.4 L Albumin 4.2 Urine Color Urine Appearance Urine pH Ur Specific [place] Urine Protein Urine Glucose (UA) Urine Ketones Urine Blood Urine Nitrite Ur Leukocyte Esterase Urine RBC Urine WBC Ur Squamous Epith Cells Urine Bacteria Hyaline Casts Acetone, Qual COVID-19 (MANISHA) COVID-19 Clin Com 03/26/22 03/26/22 03/26/22 14:36 14:36 14:36 MCV MCH MCHC RDW Plt Count MPV Immature Gran % (Auto) Neut % (Auto) Lymph % (Auto) [place] % (Auto) Eos % (Auto) Baso % (Auto) Lymph # (Auto) [place] # (Auto) Eos # (Auto) Baso # (Auto) Abs Immat Gran (auto) Absolute Neuts (auto) Absolute Nucleated RBC Nucleated RBC % (auto) ESR PT INR Anion Gap Estim Creat Clear Calc Estimated GFR POC Glucose Random Glucose Lactic Acid 9.5 H* Lactic Acid F/U @ 2Hr Calcium Magnesium Total Bilirubin Direct Bilirubin AST ALT Alkaline Phosphatase C-Reactive Protein B-Natriuretic Peptide 27 Total Protein Albumin Urine Color Urine Appearance Urine pH Ur Specific [place] Urine Protein Urine Glucose (UA) Urine Ketones Urine Blood Urine Nitrite Ur Leukocyte Esterase Urine RBC Urine WBC Ur Squamous Epith Cells Urine Bacteria Hyaline Casts Acetone, Qual COVID-19 (MANISHA) Negative COVID-19 Clin Com See Note 03/26/22 03/26/22 03/26/22 14:36 15:00 15:28 MCV MCH MCHC RDW Plt Count MPV Immature Gran % (Auto) Neut % (Auto) Lymph % (Auto) [place] % (Auto) Eos % (Auto) Baso % (Auto) Lymph # (Auto) [place] # (Auto) Eos # (Auto) Baso # (Auto) Abs Immat Gran (auto) Absolute Neuts (auto) Absolute Nucleated RBC Nucleated RBC % (auto) ESR 40 H PT INR Anion Gap Estim Creat Clear Calc Estimated GFR POC Glucose Random Glucose Lactic Acid Lactic Acid F/U @ 2Hr Calcium Magnesium Total Bilirubin Direct Bilirubin AST ALT Alkaline Phosphatase C-Reactive Protein B-Natriuretic Peptide Total Protein Albumin Urine Color Yellow Urine Appearance Clear Urine pH 6.0 Ur Specific [place] >= 1.030 H Urine Protein Negative Urine Glucose (UA) >=1000 H Urine Ketones Trace Urine Blood Negative Urine Nitrite Negative Ur Leukocyte Esterase Negative Urine RBC 0-2 Urine WBC 0-5 Ur Squamous Epith Cells 0-2 Urine Bacteria None Seen Hyaline Casts 0-2 Acetone, Qual Negative COVID-19 (MANISHA) COVID-19 Clin Com 03/26/22 03/26/22 03/26/22 16:22 18:23 18:34 MCV MCH MCHC RDW Plt Count MPV Immature Gran % (Auto) Neut % (Auto) Lymph % (Auto) [place] % (Auto) Eos % (Auto) Baso % (Auto) Lymph # (Auto) [place] # (Auto) Eos # (Auto) Baso # (Auto) Abs Immat Gran (auto) Absolute Neuts (auto) Absolute Nucleated RBC Nucleated RBC % (auto) ESR PT INR Anion Gap Estim Creat Clear Calc Estimated GFR POC Glucose 290 H Random Glucose Lactic Acid 8.2 H* Lactic Acid F/U @ 2Hr 6.8 H* Calcium Magnesium Total Bilirubin Direct Bilirubin AST ALT Alkaline Phosphatase C-Reactive Protein B-Natriuretic Peptide Total Protein Albumin Urine Color Urine Appearance Urine pH Ur Specific [place] Urine Protein Urine Glucose (UA) Urine Ketones Urine Blood Urine Nitrite Ur Leukocyte Esterase Urine RBC Urine WBC Ur Squamous Epith Cells Urine Bacteria Hyaline Casts Acetone, Qual COVID-19 (MANISHA) COVID-19 Clin Com Imaging Radiologist's Impressions: Impressions Chest X-Ray 03/26/22 15:35 IMPRESSION: Hypoinflated lungs with left basilar atelectasis and question of mild vascular congestion. Abdomen/Pelvis CT 03/26/22 16:17 IMPRESSION: 1. Sigmoid diverticulosis. Curvilinear focus of soft tissue in the pericolonic fat adjacent to the sigmoid colon, is essentially identical in appearance to prior 10/08/2019, likely focal area of pericolonic scarring from prior diverticulitis. No specific findings of acute diverticulitis. 2. No other acute intra-abdominal process identified. 3. Hepatic steatosis and cholelithiasis. 4. Incidental finding of a right paracentral disc herniation at the L2-L3 level. Fleischner guidelines were followed. Assessment and Plan (1) Cellulitis: Status: Acute (2) Hyperglycemia: Status: Acute (3) Lactic acidosis: Status: Acute (4) Myasthenia gravis: Status: Acute (5) Diabetes mellitus, type 2: Status: Acute (6) Hypercholesteremia: Status: Acute (7) Hypertension: Status: Acute Plan This is a 71-year-old male with a pertinent history of traumatic brain injury, type 2 diabetes mellitus, myasthenia gravis, essential hypertension, mixed hyperlipidemia who presents to the emergency department by EMS for right lower extremity redness, swelling and drainage. #. Acute right lower extremity purulent cellulitis -will admit patient and initiate IV vancomycin. Blood cultures obtained in the ER. Will resuscitate with IV crystalloids. #. Lactic acidosis -due to decreased perfusion in the setting of infection/dehydration. Patient also on metformin, will discontinue. Trending down with IV fluid resuscitation. #. Type 2 diabetes mellitus with hyperglycemia and neuropathy -with glycosuria. Resuscitating with IV crystalloids. Administered regular IV insulin. Initiate basal plus regimen, lantus 15 units at bedtime and Accu-Cheks with sliding scale insulin before meals and at bedtime. Hold metformin. Continue gabapentin #. Myasthenia gravis -continue prednisone, mycophenolate and azathioprine #. Mood disorder in a patient with traumatic brain injury -continue Remeron and Seroquel #. Essential hypertension -hold amlodipine due to dependent leg edema. Continue valsartan #. Dependent leg edema -will benefit from stockings once acute cellulitis resolves #. Debility -consulting Physical therapy to evaluate and treat Code status: Do not resuscitate Diet: Diabetic diet DVT prophylaxis: Lovenox 40 mg daily Patient will require two night minimum hospital stay for IV antibiotics for purulent cellulitis and IV fluid resuscitation for significant lactic acidosis Quality Stroke Does the patient have a stroke diagnosis?: No VTE Prior VTE?: No VTE Risk Level:: Medical - moderate - high VTE Device Contraindication: Treatment Not Indicated VTE Drug Contraindication: N/A - Med Ordered
--- NOTE | 2022-03-26 20:51 | PHA.PROG ---
Admission Date/Time: March 26, 2022 20:27 Indication: skin Weight in k.8 kg Adjusted body weight in Kg: [place] body weight in Kg: Obesity Dosing Indication % IBW: Serum Creatinine - Last 168 Hours 03/26/22 14:36 Creatinine 1.20 Estimated CrCl and GFR - Last 168 Hours 03/26/22 14:36 Estim Creat Clear Calc 61.0 Estimated GFR 59 Vancomycin Loading Dose: 2000mg X 1 Current Vancomycin Dosing Regimen: 1250mg Q24H Vancomycin Monitoring using AUC goal of 400 - 600 range with trough as surrogate marker: 530mg/L Date and Time for next Vancomycin Level to be drawn: 03/29/22 @1900 Pharmacist Comments on Vancomycin Plan: Will continue to monitor renal function Vancomycin dosing will take advantage of [facility] as a clinical decision support tool that uses Bayesian modeling to calculate individual patient's pharmacokinetic parameters and forecast the patient's drug concentration time course with the target goal AUC 24 range of 400 - 600 mg/L/hr.
[2022-03-26 21:06] LABS: Lactic Acid 6.7 mmol/L (0.5-2.0)
[2022-03-26 21:14] LABS: Glucose, Whole Blood 181 mg/dL (60-115)
[2022-03-26 21:40] LABS: Anion Gap 26 (12-20); Blood Urea Nitrogen 28 mg/dL (9-16); Calcium 9.3 mg/dL (8.4-10.2); Carbon Dioxide 19 mmol/L (22-29); Chloride 104 mmol/L (96-108); Estimated Glomerular Filt Rate > 60; Glucose Random 192 mg/dL (60-115); Potassium 5.2 mmol/L (3.3-5.1); Sodium 144 mmol/L (135-145)
[2022-03-26] MEDS: pyRIDostigmine bromide 60 MG TABLET PO (22:00)
[2022-03-26] MEDS: Gabapentin 300 MG CAPSULE PO (22:01)
[2022-03-26] MEDS: Insulin Lispro 100 UNIT/ML 3 ML VIAL SUBCUT (22:01)
[2022-03-26] MEDS: Mirtazapine 30 MG TABLET PO (22:01)
[2022-03-26] MEDS: QUEtiapine Fumarate 25 MG TABLET PO (22:01)
[2022-03-26] MEDS: Insulin Glargine,Hum.rec.anlog 100 UNIT/ML 10 ML VIAL 15 UNIT SUBCUT (22:02)
[2022-03-26] MEDS: Enoxaparin Sodium 40 MG/0.4 ML SYRINGE SUBCUT (22:02)
--- NOTE | 2022-03-26 22:46 | PC.NURSE ---
Some medications not loaded in pyxis. Called pharmacy, will be delivered.
[2022-03-26 22:49] LABS: Reflex Lactate? Lactic Acid Added
[2022-03-26] MEDS: azaTHIOprine 50 MG TABLET PO (23:14)
[2022-03-26] MEDS: Clotrimazole 1 % Cream 15 GM TUBE 1 APPL TOPICAL (23:14)
[2022-03-26] MEDS: mycophenolate mofetiL 250 MG CAPSULE 500 MG PO (23:14)
[2022-03-26] MEDS: Triamcinolone Acet 0.1 % Cream 15 GM TUBE 1 APPL TOPICAL (23:14)
[2022-03-26 23:55] VITALS: BP 155/63; PULSE 97; RESP 18; TEMP 36.4; O2SAT 96
[2022-03-27 00:13] LABS: ~Lactic Acid-LAB USE ONLY 3.9 mmol/L (0.5-2.0)
[2022-03-27] MEDS: 0.9 % Sodium Chloride 1,000 ML 999 ML IV (00:54)
[2022-03-27 01:36] LABS: Reflex Lactate? 2 Y
[2022-03-27] MEDS: 0.9 % Sodium Chloride 500 ML 125 ML IV (01:55)
[2022-03-27 02:14] LABS: ~Lactic Acid-LAB USE ONLY 3.1 mmol/L (0.5-2.0)
[2022-03-27] MEDS: Albuterol Sulfate 90 MCG 8 GM INHALER 2 PUFF INHALE (03:33)
--- NOTE | 2022-03-27 03:36 | PC.NURSE ---
I took over care of this pt at 1900 on 03/26. Pt is confused at times and very forgetful. 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 Pt has two red and scaly areas on the anterior side of both legs, medial to the shins. I applied creams as ordered. Pt also has a pressure wound on the coccyx area. This area is mostly scabbed over but raw in some places. I applied barrier cream to the coccyx area. Pt is able to stand to use a urinal with one assist. Pt was able to turn and pivot into a wheelchair to go to the restroom for a bowel movement. Pt was able to pull himself out of the wheelchair as well as off of the toilet with the assistance of the handrails on the wall. around 0330, pt stood up with assistance to use the urinal. When pt got into bed, he was having some difficulty breathing and requested his inhaler. I assisted in administration and pt seemed to have near immediate relief. Documented administration in SEP.
[2022-03-27 06:52] LABS: MANUAL DIFF FLAG NO
[2022-03-27 06:53] LABS: Basophils Percent Auto 0.3 % (0-2); Eosinophils Absolute Auto 0.1 X10*3/uL (0.0-0.4); Eosinophils Percent Auto 0.6 % (0-4); Hematocrit 31.8 % (42.0-52.0); Hemoglobin 10.2 g/dl (14.0-18.0); Imm Gran Pct Auto 1.3 % (0.0-0.4); Lymphocytes Absolute Auto 1.2 X10*3/uL (1.2-4.9); Lymphocytes Percent Auto 15.2 % (20-40); Mean Corpuscular HGB Conc 32.1 g/dl (31.0-36.0); Mean Corpuscular Hemoglobin 28.9 pg (27.0-33.0); Mean Corpuscular Volume 90.1 fL (80.0-98.0); Mean Platelet Volume 9.6 fL (9.4-12.4); Monocytes Absolute Auto 0.4 X10*3/uL (0.1-1.2); Monocytes Percent Auto 5.4 % (2-11); Neutrophils Percent Auto 77.2 % (45-73); Platelet Count 160 X10*3/uL (160-400); Red Blood Count 3.53 X10*6/uL (4.60-5.80); Red Cell Distribution Width 17.4 % (11.0-16.0); White Blood Count 7.7 X10*3/uL (4.8-10.8)
[2022-03-27 07:23] LABS: Anion Gap 16 (12-20); Blood Urea Nitrogen 21 mg/dL (9-16); Calcium 7.9 mg/dL (8.4-10.2); Carbon Dioxide 24 mmol/L (22-29); Chloride 109 mmol/L (96-108); Creatinine Clr Calc Pharmacy 93.9; Estimated Glomerular Filt Rate > 60; Glucose Random 97 mg/dL (60-115); Potassium 3.5 mmol/L (3.3-5.1); Sodium 145 mmol/L (135-145)
--- NOTE | 2022-03-27 07:48 | PC.NURSE ---
this tech brought pt to the bathroom via wheelchair x2 assist. patient linens were changed, pt back in bed, resting comfortably with breakfast tray.
[2022-03-27 07:49] LABS: Glucose, Whole Blood 88 mg/dL (60-115)
[2022-03-27 07:59] LABS: Glucose, Whole Blood 87 mg/dL (60-115)
--- NOTE | 2022-03-27 08:38 | HE.PHANOTE ---
Vancomycin Dosing Addedum Patient's renal function has improved. Will change dose to vancomycin 750 mg Q12H. Expected AUC 423 with a trough of 12.8. Trough to be drawn 03/28 @ 0700. Karie HenryD
--- NOTE | 2022-03-27 09:05 | HO.PM.IMPN ---
Subjective Subjective Date of Service: 03/27/22 Interval History: Seen in f/u for cellulitis of the leg interim history: cellulitis is improving Review of Systems no fever or chills no pain Physical Exam Vital Signs: Vital Signs: Last Vital Signs Temp 97.6 F 03/26/22 23:55 Pulse 97 03/26/22 23:55 Resp 18 03/26/22 23:55 BP 155/63 H 03/26/22 23:55 Pulse Ox 96 03/26/22 23:55 O2 Del Method 03/26/22 23:55 BMI result Body Mass Index 33.7 Const: Other: ?Elderly white male lying in bed in no distress Neck supple, no JVD Tachycardic with regular rhythm, S1-S2 heard Decreased breath sound at bases, no wheezing or crackles appreciated Abdomen soft nontender, no guarding, no rigidity Patient is awake, alert and oriented to self, disoriented to time and place; Skin:? Right lower extremity with erythema, warmth and purulent drainage, left lower extremity with erythema Psych: Normal mood Bilateral pitting edema of lower extremity Objective Data Active Medications Acetaminophen (Acetaminophen 325 Mg Tablet) 650 mg PO Q6H PRN PRN Reason: Pain, Mild (Pain Scale 1-3) Albuterol Sulfate (Albuterol Sulfate 90 Mcg 8 Gm Inhaler) 2 puff INHALE Q4H PRN PRN Reason: Wheezing Last Admin: 03/27/22 03:33 Dose: 2 puff Documented By: CASTRO Azathioprine (Azathioprine 50 Mg Tablet) 50 mg PO TID [facility] Last Admin: 03/26/22 23:14 Dose: 50 mg Documented By: CASTRO Clotrimazole (Clotrimazole 1 % Cream 15 Gm Tube) 1 appl TOPICAL BID [facility]; Protocol Last Admin: 03/26/22 23:14 Dose: 1 appl Documented By: CASTRO Dextrose (Dextrose 50 % 25 Gm/50 Ml Syringe) 25 gm IVPUSH Q15M PRN; Protocol PRN Reason: per Hypoglycemia Standing Ord. Enoxaparin Sodium (Enoxaparin Sodium 40 Mg/0.4 Ml Syringe) 40 mg SUBCUT Q24H [facility] Last Admin: 03/26/22 22:02 Dose: 40 mg Documented By: CASTRO Gabapentin (Gabapentin 300 Mg Capsule) 300 mg PO BID [facility] Last Admin: 03/26/22 22:01 Dose: 300 mg Documented By: CASTRO Glucose (Glucose Gel 15 Gm Gel..Gram.) 15 gm PO Q15M PRN; Protocol PRN Reason: per Hypoglycemia Standing Ord. Vancomycin HCl 750 mg/ Sodium (Chloride) 265 mls @ 265 mls/hr IV Q12H [facility] Insulin Glargine (Insulin Glargine,Hum.Rec.Anlog 100 Unit/Ml 10 Ml Vial) 15 unit SUBCUT BEDTIME [facility] Last Admin: 03/26/22 22:02 Dose: 15 unit Documented By: CATSRO Insulin Human Lispro (Insulin Lispro 100 Unit/Ml 3 Ml Vial) 0 unit SUBCUT QIDACHS [facility]; Protocol Stop: 03/27/22 20:31 Last Admin: 03/27/22 07:58 Dose: Not Given Documented By: LITZY Non-Admin Reason: No Insulin Coverage Mirtazapine (Mirtazapine 30 Mg Tablet) 30 mg PO BEDTIME [facility] Last Admin: 03/26/22 22:01 Dose: 30 mg Documented By: CASTRO Mycophenolate Mofetil (Mycophenolate Mofetil 250 Mg Capsule) 500 mg PO BID [facility] Last Admin: 03/26/22 23:14 Dose: 500 mg Documented By: CASTRO Ondansetron HCl (Ondansetron Hcl 4 Mg/2 Ml Vial) 4 mg IVPUSH Q8H PRN PRN Reason: Nausea and Vomiting Pharmacy Consult (Consult Rx Perform Med Rec) 1 each MISCELLANE ONCE PRN PRN Reason: Consult order Pharmacy Consult (Consult Rx Vancomycin Dosing) 1 each MISCELLANE DAILY PRN PRN Reason: Consult order Prednisone (Prednisone 5 Mg Tablet) 25 mg PO DAILY [facility] Pyridostigmine [place] (Pyridostigmine [place] 60 Mg Tablet) 60 mg PO QID [facility] Last Admin: 03/26/22 22:00 Dose: 60 mg Documented By: CASTRO Quetiapine Fumarate (Quetiapine Fumarate 25 Mg Tablet) 25 mg PO BEDTIME [facility] Last Admin: 03/26/22 22:01 Dose: 25 mg Documented By: CASTRO Senna (Sennosides 8.6 Mg Tablet) 17.2 mg PO BEDTIME PRN PRN Reason: Constipation Sodium Chloride (0.9 % Sodium Chloride Flush 3 Ml Syringe) 3 ml IVFLUSH QSHIFT [facility] Last Admin: 03/27/22 00:54 Dose: Not Given Documented By: CASTRO Non-Admin Reason: IV Running Triamcinolone Acetonide (Triamcinolone Acet 0.1 % Cream 15 Gm Tube) 1 appl TOPICAL BID [facility]; Protocol Last Admin: 03/26/22 23:14 Dose: 1 appl Documented By: CASTRO Valsartan (Valsartan 80 Mg Tablet) 80 mg PO DAILY [facility]; Protocol Labs CBC & Chem 7: 03/27/22 06:12 03/27/22 06:12 Labs: Laboratory Results - last 24 hr 03/26/22 03/26/22 03/26/22 14:36 14:36 14:36 MCV 89.0 MCH 27.9 MCHC 31.4 RDW 17.5 H Plt Count 217 MPV 9.3 L Immature Gran % (Auto) 2.5 H Neut % (Auto) 88.6 H Lymph % (Auto) 4.6 L [place] % (Auto) 4.0 Eos % (Auto) 0.2 Baso % (Auto) 0.1 Lymph # (Auto) 0.4 L [place] # (Auto) 0.4 Eos # (Auto) 0.0 Baso # (Auto) 0.0 Abs Immat Gran (auto) 0.22 H Absolute Neuts (auto) 7.9 Absolute Nucleated RBC 0.000 Nucleated RBC % (auto) 0.0 ESR PT 10.8 INR 0.9 Anion Gap 28 H Estim Creat Clear Calc 61.0 Estimated GFR 59 POC Glucose Random Glucose 488 H* Estimat Average Glucose Hemoglobin A1c % Lactic Acid Lactic Acid F/U @ 2Hr Lactic Acid F/U @ 4Hr Calcium 9.6 D Magnesium 2.0 Total Bilirubin 0.6 Direct Bilirubin 0.3 AST 38 H ALT 54 H Alkaline Phosphatase 51 C-Reactive Protein 0.54 H B-Natriuretic Peptide Total Protein 6.4 L Albumin 4.2 Urine Color Urine Appearance Urine pH Ur Specific [place] Urine Protein Urine Glucose (UA) Urine Ketones Urine Blood Urine Nitrite Ur Leukocyte Esterase Urine RBC Urine WBC Ur Squamous Epith Cells Urine Bacteria Hyaline Casts Acetone, Qual COVID-19 ([facility]) COVID-19 Clin Com 03/26/22 03/26/22 03/26/22 14:36 14:36 14:36 MCV MCH MCHC RDW Plt Count MPV Immature Gran % (Auto) Neut % (Auto) Lymph % (Auto) [place] % (Auto) Eos % (Auto) Baso % (Auto) Lymph # (Auto) [place] # (Auto) Eos # (Auto) Baso # (Auto) Abs Immat Gran (auto) Absolute Neuts (auto) Absolute Nucleated RBC Nucleated RBC % (auto) ESR PT INR Anion Gap Estim Creat Clear Calc Estimated GFR POC Glucose Random Glucose Estimat Average Glucose Hemoglobin A1c % Lactic Acid 9.5 H* Lactic Acid F/U @ 2Hr Lactic Acid F/U @ 4Hr Calcium Magnesium Total Bilirubin Direct Bilirubin AST ALT Alkaline Phosphatase C-Reactive Protein B-Natriuretic Peptide 27 Total Protein Albumin Urine Color Urine Appearance Urine pH Ur Specific [place] Urine Protein Urine Glucose (UA) Urine Ketones Urine Blood Urine Nitrite Ur Leukocyte Esterase Urine RBC Urine WBC Ur Squamous Epith Cells Urine Bacteria Hyaline Casts Acetone, Qual COVID-19 ([facility]) Negative COVID-19 Clin Com See Note 03/26/22 03/26/22 03/26/22 14:36 15:00 15:28 MCV MCH MCHC RDW Plt Count MPV Immature Gran % (Auto) Neut % (Auto) Lymph % (Auto) [place] % (Auto) Eos % (Auto) Baso % (Auto) Lymph # (Auto) [place] # (Auto) Eos # (Auto) Baso # (Auto) Abs Immat Gran (auto) Absolute Neuts (auto) Absolute Nucleated RBC Nucleated RBC % (auto) ESR 40 H PT INR Anion Gap Estim Creat Clear Calc Estimated GFR POC Glucose Random Glucose Estimat Average Glucose Hemoglobin A1c % Lactic Acid Lactic Acid F/U @ 2Hr Lactic Acid F/U @ 4Hr Calcium Magnesium Total Bilirubin Direct Bilirubin AST ALT Alkaline Phosphatase C-Reactive Protein B-Natriuretic Peptide Total Protein Albumin Urine Color Yellow Urine Appearance Clear Urine pH 6.0 Ur Specific [place] >= 1.030 H Urine Protein Negative Urine Glucose (UA) >=1000 H Urine Ketones Trace Urine Blood Negative Urine Nitrite Negative Ur Leukocyte Esterase Negative Urine RBC 0-2 Urine WBC 0-5 Ur Squamous Epith Cells 0-2 Urine Bacteria None Seen Hyaline Casts 0-2 Acetone, Qual Negative COVID-19 ([facility]) COVID-19 Clin Com 03/26/22 03/26/22 03/26/22 16:22 18:23 18:34 MCV MCH MCHC RDW Plt Count MPV Immature Gran % (Auto) Neut % (Auto) Lymph % (Auto) [place] % (Auto) Eos % (Auto) Baso % (Auto) Lymph # (Auto) [place] # (Auto) Eos # (Auto) Baso # (Auto) Abs Immat Gran (auto) Absolute Neuts (auto) Absolute Nucleated RBC Nucleated RBC % (auto) ESR PT INR Anion Gap Estim Creat Clear Calc Estimated GFR POC Glucose 290 H Random Glucose Estimat Average Glucose Hemoglobin A1c % Lactic Acid 8.2 H* Lactic Acid F/U @ 2Hr 6.8 H* Lactic Acid F/U @ 4Hr Calcium Magnesium Total Bilirubin Direct Bilirubin AST ALT Alkaline Phosphatase C-Reactive Protein B-Natriuretic Peptide Total Protein Albumin Urine Color Urine Appearance Urine pH Ur Specific [place] Urine Protein Urine Glucose (UA) Urine Ketones Urine Blood Urine Nitrite Ur Leukocyte Esterase Urine RBC Urine WBC Ur Squamous Epith Cells Urine Bacteria Hyaline Casts Acetone, Qual COVID-19 ([facility]) COVID-Five9 03/26/22 03/26/22 03/26/22 20:40 20:40 21:10 MCV MCH MCHC RDW Plt Count MPV Immature Gran % (Auto) Neut % (Auto) Lymph % (Auto) [place] % (Auto) Eos % (Auto) Baso % (Auto) Lymph # (Auto) [place] # (Auto) Eos # (Auto) Baso # (Auto) Abs Immat Gran (auto) Absolute Neuts (auto) Absolute Nucleated RBC Nucleated RBC % (auto) ESR PT INR Anion Gap Estim Creat Clear Calc Estimated GFR POC Glucose 181 H Random Glucose Estimat Average Glucose TNP Hemoglobin A1c % TNP Lactic Acid 6.7 H* Lactic Acid F/U @ 2Hr Lactic Acid F/U @ 4Hr Calcium Magnesium Total Bilirubin Direct Bilirubin AST ALT Alkaline Phosphatase C-Reactive Protein B-Natriuretic Peptide Total Protein Albumin Urine Color Urine Appearance Urine pH Ur Specific [place] Urine Protein Urine Glucose (UA) Urine Ketones Urine Blood Urine Nitrite Ur Leukocyte Esterase Urine RBC Urine WBC Ur Squamous Epith Cells Urine Bacteria Hyaline Casts Acetone, Qual COVID-19 ([facility]) COVID-19 [employer] 03/26/22 03/26/22 03/27/22 21:12 23:27 01:50 MCV MCH MCHC RDW Plt Count MPV Immature Gran % (Auto) Neut % (Auto) Lymph % (Auto) [place] % (Auto) Eos % (Auto) Baso % (Auto) Lymph # (Auto) [place] # (Auto) Eos # (Auto) Baso # (Auto) Abs Immat Gran (auto) Absolute Neuts (auto) Absolute Nucleated RBC Nucleated RBC % (auto) ESR PT INR Anion Gap 26 H Estim Creat Clear Calc 66.0 Estimated GFR > 60 POC Glucose Random Glucose 192 H D Estimat Average Glucose Hemoglobin A1c % Lactic Acid Lactic Acid F/U @ 2Hr 3.9 H* Lactic Acid F/U @ 4Hr 3.1 H* Calcium 9.3 Magnesium Total Bilirubin Direct Bilirubin AST ALT Alkaline Phosphatase C-Reactive Protein B-Natriuretic Peptide Total Protein Albumin Urine Color Urine Appearance Urine pH Ur Specific [place] Urine Protein Urine Glucose (UA) Urine Ketones Urine Blood Urine Nitrite Ur Leukocyte Esterase Urine RBC Urine WBC Ur Squamous Epith Cells Urine Bacteria Hyaline Casts Acetone, Qual COVID-19 ([facility]) [employer] 03/27/22 03/27/22 03/27/22 06:12 06:12 07:44 MCV 90.1 MCH 28.9 MCHC 32.1 RDW 17.4 H Plt Count 160 D MPV 9.6 Immature Gran % (Auto) 1.3 H Neut % (Auto) 77.2 H Lymph % (Auto) 15.2 L [place] % (Auto) 5.4 Eos % (Auto) 0.6 Baso % (Auto) 0.3 Lymph # (Auto) 1.2 [place] # (Auto) 0.4 Eos # (Auto) 0.1 Baso # (Auto) 0.0 Abs Immat Gran (auto) 0.10 H Absolute Neuts (auto) 6.0 Absolute Nucleated RBC 0.000 Nucleated RBC % (auto) 0.0 ESR PT INR Anion Gap 16 Estim Creat Clear Calc 93.9 Estimated GFR > 60 POC Glucose 88 Random Glucose 97 D Estimat Average Glucose Hemoglobin A1c % Lactic Acid Lactic Acid F/U @ 2Hr Lactic Acid F/U @ 4Hr Calcium 7.9 L D Magnesium Total Bilirubin Direct Bilirubin AST ALT Alkaline Phosphatase C-Reactive Protein B-Natriuretic Peptide Total Protein Albumin Urine Color Urine Appearance Urine pH Ur Specific [place] Urine Protein Urine Glucose (UA) Urine Ketones Urine Blood Urine Nitrite Ur Leukocyte Esterase Urine RBC Urine WBC Ur Squamous Epith Cells Urine Bacteria Hyaline Casts Acetone, Qual COVID-19 ([facility]) COVID-19 Clin Com 03/27/22 07:55 MCV MCH MCHC RDW Plt Count MPV Immature Gran % (Auto) Neut % (Auto) Lymph % (Auto) [place] % (Auto) Eos % (Auto) Baso % (Auto) Lymph # (Auto) [place] # (Auto) Eos # (Auto) Baso # (Auto) Abs Immat Gran (auto) Absolute Neuts (auto) Absolute Nucleated RBC Nucleated RBC % (auto) ESR PT INR Anion Gap Estim Creat Clear Calc Estimated GFR POC Glucose 87 Random Glucose Estimat Average Glucose Hemoglobin A1c % Lactic Acid Lactic Acid F/U @ 2Hr Lactic Acid F/U @ 4Hr Calcium Magnesium Total Bilirubin Direct Bilirubin AST ALT Alkaline Phosphatase C-Reactive Protein B-Natriuretic Peptide Total Protein Albumin Urine Color Urine Appearance Urine pH Ur Specific [place] Urine Protein Urine Glucose (UA) Urine Ketones Urine Blood Urine Nitrite Ur Leukocyte Esterase Urine RBC Urine WBC Ur Squamous Epith Cells Urine Bacteria Hyaline Casts Acetone, Qual COVID-19 ([facility]) COVID-19 Clin Com Assessment and Plan (1) Cellulitis: Status: Acute Plan 71-year-old male with a pertinent history of traumatic brain injury, type 2 diabetes mellitus, myasthenia gravis, essential hypertension, mixed hyperlipidemia who presents to the emergency department by EMS for right lower extremity redness, swelling and drainage. #.? Acute right lower extremity purulent cellulitis--improving -IV Vanco D2, for 1 more day then oral Doxy #.? Lactic acidosis -due to decreased perfusion in the setting of infection/dehydration.? Patient also on metformin, will discontinue.? has trended down. No need to repeat and hold Metformin for one more day #.? 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 Resuscitated with IV crystalloids.? -continue Insulin (Lantus, SSI), hold metformin #.? Myasthenia gravis -continue prednisone, mycophenolate and azathioprine #.? 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 Essential hypertension -hold amlodipine due to dependent leg edema.? Continue valsartan #.? Dependent leg edema -will benefit from stockings once acute cellulitis resolves #.? Debility -consulting Physical therapy to evaluate and treat Code status:? Do not resuscitate Diet: Diabetic diet DVT prophylaxis:? Lovenox 40 mg daily need for inpaitent: IV Abx for celluluitis covering at larege area of legs Quality Stroke Does the patient have a stroke diagnosis?: No VTE Prior VTE?: No VTE Risk Level:: Medical - moderate - high VTE Device Contraindication: Treatment Not Indicated VTE Drug Contraindication: N/A - Med Ordered
[2022-03-27] MEDS: mycophenolate mofetiL 250 MG CAPSULE 500 MG PO ×2 (10:28→21:38)
[2022-03-27] MEDS: pyRIDostigmine bromide 60 MG TABLET PO ×4 (10:28→21:38)
[2022-03-27] MEDS: predniSONE 5 MG TABLET 25 MG PO (10:29)
[2022-03-27] MEDS: Gabapentin 300 MG CAPSULE PO ×2 (10:29→21:38)
[2022-03-27] MEDS: Valsartan 80 MG TABLET PO (10:29)
[2022-03-27] MEDS: 0.9 % Sodium Chloride Flush 3 ML SYRINGE IVFLUSH ×3 (10:31→21:41)
[2022-03-27] MEDS: vancomycin HCL 750 MG in 0.9 % Sodium Chloride 250 ML 265 MG IV ×2 (10:43→21:38)
[2022-03-27 10:49] VITALS: BP 155/63; PULSE 97; O2SAT 96
[2022-03-27] MEDS: Triamcinolone Acet 0.1 % Cream 15 GM TUBE 1 APPL TOPICAL ×2 (11:58→21:41)
[2022-03-27] MEDS: Clotrimazole 1 % Cream 15 GM TUBE 1 APPL TOPICAL ×2 (11:58→21:41)
[2022-03-27] MEDS: azaTHIOprine 50 MG TABLET PO ×3 (11:59→21:38)
[2022-03-27 12:00] VITALS: BP 150/66; PULSE 81; RESP 16; TEMP 36.7; O2SAT 95
[2022-03-27 12:48] LABS: Glucose, Whole Blood 141 mg/dL (60-115)
[2022-03-27 15:40] VITALS: BP 183/72; PULSE 93; RESP 17; TEMP 36.9; O2SAT 96
[2022-03-27 16:02] LABS: Glucose, Whole Blood 250 mg/dL (60-115)
[2022-03-27] MEDS: Insulin Lispro 100 UNIT/ML 3 ML VIAL SUBCUT (16:36)
[2022-03-27 19:35] VITALS: BP 168/80; PULSE 87; RESP 18; TEMP 36.8; O2SAT 97
[2022-03-27 20:43] LABS: Glucose, Whole Blood 234 mg/dL (60-115)
[2022-03-27] MEDS: QUEtiapine Fumarate 25 MG TABLET PO (21:38)
[2022-03-27] MEDS: Mirtazapine 30 MG TABLET PO (21:38)
[2022-03-27] MEDS: Enoxaparin Sodium 40 MG/0.4 ML SYRINGE SUBCUT (21:38)
[2022-03-27] MEDS: Insulin Glargine,Hum.rec.anlog 100 UNIT/ML 10 ML VIAL 15 UNIT SUBCUT (21:41)
[2022-03-27 23:56] VITALS: BP 159/81; PULSE 93; RESP 17; TEMP 36.4; O2SAT 97
[2022-03-28 04:00] VITALS: BP 150/68; PULSE 82; RESP 17; TEMP 36.1; O2SAT 95
[2022-03-28 06:43] LABS: Creatinine Clr Calc Pharmacy 96.4; Estimated Glomerular Filt Rate > 60
[2022-03-28 06:48] LABS: Vancomycin Trough 12.7 mcg/mL (10.0-20.0)
[2022-03-28 07:22] VITALS: BP 174/81; PULSE 83; RESP 18; TEMP 36.7; O2SAT 95
--- NOTE | 2022-03-28 07:25 | HE.PHANOTE ---
vancomycin addendum trough came back at 12.7, suggested AUC of 326, decided to increase dose to 1 gram q12 hours and take another level, predicted AUC of 434 at this dose
[2022-03-28 07:40] LABS: Glucose, Whole Blood 119 mg/dL (60-115)
[2022-03-28] MEDS: Valsartan 80 MG TABLET PO (09:45)
[2022-03-28] MEDS: mycophenolate mofetiL 250 MG CAPSULE 500 MG PO ×2 (09:46→19:35)
[2022-03-28] MEDS: Triamcinolone Acet 0.1 % Cream 15 GM TUBE 1 APPL TOPICAL ×2 (09:46→19:35)
[2022-03-28] MEDS: Gabapentin 300 MG CAPSULE PO ×2 (09:46→19:34)
[2022-03-28] MEDS: Clotrimazole 1 % Cream 15 GM TUBE 1 APPL TOPICAL ×2 (09:46→19:35)
[2022-03-28] MEDS: azaTHIOprine 50 MG TABLET PO ×3 (09:46→19:34)
[2022-03-28] MEDS: pyRIDostigmine bromide 60 MG TABLET PO ×4 (09:46→19:34)
[2022-03-28] MEDS: predniSONE 5 MG TABLET 25 MG PO (09:46)
[2022-03-28] MEDS: 0.9 % Sodium Chloride Flush 3 ML SYRINGE IVFLUSH ×2 (09:46→16:15)
[2022-03-28] MEDS: vancomycin HCL 1,000 MG in 0.9 % Sodium Chloride 250 ML 270 MG IV ×2 (09:47→21:33)
[2022-03-28 11:16] VITALS: BP 175/78; PULSE 93; RESP 20; TEMP 36.2; O2SAT 95
[2022-03-28 11:35] LABS: Glucose, Whole Blood 148 mg/dL (60-115)
--- NOTE | 2022-03-28 14:46 | HO.PM.IMPN ---
Subjective Subjective Date of Service: 03/29/22 Interval History: Being followed for right lower extremity cellulitis, as per patient he has for several years, denies pain, no fevers no chills no other acute issues overnight noted to have fluctuating blood sugars, as per patient he is up most of the night because he liked the night better since is quiet he can watch TV therefore he gets up late during the daytime, no acute issues since admission. Review of Systems Review of Systems: Yes all other systems are reviewed and are negative Physical Exam Vital Signs: Vital Signs: Last Vital Signs Temp 97.2 F 03/28/22 11:16 Pulse 93 03/28/22 11:16 Resp 20 03/28/22 11:16 BP 175/78 H 03/28/22 11:16 Pulse Ox 95 03/28/22 11:16 O2 Del Method 03/28/22 11:16 BMI result Body Mass Index 33.7 Const: Other: General awake alert, no acute distress.? Neck supple no JVD. CVS? regular rate rhythm, Respiratory lungs clear to auscultation, no respiratory distress, no wheeze, no rhonchi. Gastrointestinal abdomen soft, obese, nontender, bowel sounds audible, no guarding , no rigidity. Extremities Mild pitting edema with localized redness both lower extremities couple dry scabs and 1 small area with purulent drainage. Neuro nonfocal, moving all 4 extremity, speech clear, stutter at times, has no concept of time. Objective Data Active Medications Acetaminophen (Acetaminophen 325 Mg Tablet) 650 mg PO Q6H PRN PRN Reason: Pain, Mild (Pain Scale 1-3) Albuterol Sulfate (Albuterol Sulfate 90 Mcg 8 Gm Inhaler) 2 puff INHALE Q4H PRN PRN Reason: Wheezing Last Admin: 03/27/22 03:33 Dose: 2 puff Documented By: CASTRO Azathioprine (Azathioprine 50 Mg Tablet) 50 mg PO TID [facility] Last Admin: 03/28/22 14:19 Dose: 50 mg Documented By: CLAUDIA Clotrimazole (Clotrimazole 1 % Cream 15 Gm Tube) 1 appl TOPICAL BID [facility]; Protocol Last Admin: 03/28/22 09:46 Dose: 1 appl Documented By: CLAUDIA Dextrose (Dextrose 50 % 25 Gm/50 Ml Syringe) 25 gm IVPUSH Q15M PRN; Protocol PRN Reason: per Hypoglycemia Standing Ord. Enoxaparin Sodium (Enoxaparin Sodium 40 Mg/0.4 Ml Syringe) 40 mg SUBCUT Q24H [facility] Last Admin: 03/27/22 21:38 Dose: 40 mg Documented By: JESI Gabapentin (Gabapentin 300 Mg Capsule) 300 mg PO BID [facility] Last Admin: 03/28/22 09:46 Dose: 300 mg Documented By: CLAUDIA Glucose (Glucose Gel 15 Gm Gel..Gram.) 15 gm PO Q15M PRN; Protocol PRN Reason: per Hypoglycemia Standing Ord. Vancomycin HCl 1,000 mg/ (Sodium Chloride) 270 mls @ 270 mls/hr IV Q12H [facility] Last Infusion: 03/28/22 11:29 Dose: 0 mls/hr Documented By: CLAUDIA Insulin Glargine (Insulin Glargine,Hum.Rec.Anlog 100 Unit/Ml 10 Ml Vial) 15 unit SUBCUT BEDTIME [facility] Last Admin: 03/27/22 21:41 Dose: 15 unit Documented By: JESI Mirtazapine (Mirtazapine 30 Mg Tablet) 30 mg PO BEDTIME [facility] Last Admin: 03/27/22 21:38 Dose: 30 mg Documented By: JESI Mycophenolate Mofetil (Mycophenolate Mofetil 250 Mg Capsule) 500 mg PO BID [facility] Last Admin: 03/28/22 09:46 Dose: 500 mg Documented By: CLAUDIA Ondansetron HCl (Ondansetron Hcl 4 Mg/2 Ml Vial) 4 mg IVPUSH Q8H PRN PRN Reason: Nausea and Vomiting Pharmacy Consult (Consult Rx Perform Med Rec) 1 each MISCELLANE ONCE PRN PRN Reason: Consult order Pharmacy Consult (Consult Rx Vancomycin Dosing) 1 each MISCELLANE DAILY PRN PRN Reason: Consult order Prednisone (Prednisone 5 Mg Tablet) 25 mg PO DAILY [facility] Last Admin: 03/28/22 09:46 Dose: 25 mg Documented By: CLAUDIA Pyridostigmine [place] (Pyridostigmine [place] 60 Mg Tablet) 60 mg PO QID [facility] Last Admin: 03/28/22 14:18 Dose: 60 mg Documented By: CLAUDIA Quetiapine Fumarate (Quetiapine Fumarate 25 Mg Tablet) 25 mg PO BEDTIME [facility] Last Admin: 03/27/22 21:38 Dose: 25 mg Documented By: JESI Senna (Sennosides 8.6 Mg Tablet) 17.2 mg PO BEDTIME PRN PRN Reason: Constipation Sodium Chloride (0.9 % Sodium Chloride Flush 3 Ml Syringe) 3 ml IVFLUSH QSHIFT [facility] Last Admin: 03/28/22 09:46 Dose: 3 ml Documented By: CLAUDIA Triamcinolone Acetonide (Triamcinolone Acet 0.1 % Cream 15 Gm Tube) 1 appl TOPICAL BID [facility]; Protocol Last Admin: 03/28/22 09:46 Dose: 1 appl Documented By: CLAUDIA Valsartan (Valsartan 80 Mg Tablet) 80 mg PO DAILY [facility]; Protocol Last Admin: 03/28/22 09:45 Dose: 80 mg Documented By: CLAUDIA Labs CBC & Chem 7: 03/27/22 06:12 03/29/22 05:28 Labs: Laboratory Results - last 24 hr 03/27/22 03/27/22 03/28/22 15:52 20:33 06:04 Estim Creat Clear Calc 96.4 Estimated GFR > 60 POC Glucose 250 H 234 H Vancomycin Trough 03/28/22 03/28/22 03/28/22 06:04 07:24 11:20 Estim Creat Clear Calc Estimated GFR POC Glucose 119 H 148 H Vancomycin Trough 12.7 Microbiology Microbiology Results: Microbiology 03/26/22 14:36 Blood Culture - Preliminary Blood - Venous No growth after 24 hours. 03/26/22 14:36 Blood Culture - Preliminary Blood - Venous No growth after 24 hours. Assessment and Plan (1) Cellulitis: Status: Acute Plan 71-year-old male with a pertinent history of traumatic brain injury, type 2 diabetes mellitus, myasthenia gravis, essential hypertension, mixed hyperlipidemia who presents to the emergency department by EMS for right lower extremity redness, swelling and drainage. #.? Acute right lower extremity purulent cellulitis--improving -IV Vanco D 3, then oral Doxy , blood cultures x2 no growth in 24 hours #.? Lactic acidosis -due to decreased perfusion in the setting of infection/dehydration.? Patient also on metformin, will discontinue. No need to repeat labs #.? 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 Resuscitated with IV crystalloids.? -continue Insulin (Lantus, SSI), hold metformin #.? Myasthenia gravis -continue prednisone, mycophenolate and azathioprine #.? 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 Essential hypertension - elevated blood pressure will resume amlodipine Continue valsartan #.? Dependent leg edema -will benefit from stockings once acute cellulitis resolves #.? Debility - seen by Physical therapy they recommend short-term rehab when medically cleared due to gross deconditioning impaired gait pattern and bed mobility. Code status:? Do not resuscitate Diet: Diabetic diet DVT prophylaxis:? Lovenox 40 mg daily need for inpaitent: IV Abx for celluluitis covering large area of legs Quality Stroke Does the patient have a stroke diagnosis?: No VTE Prior VTE?: No VTE Risk Level:: Medical - moderate - high VTE Device Contraindication: Treatment Not Indicated VTE Drug Contraindication: N/A - Med Ordered
--- NOTE | 2022-03-28 15:21 | MHC.CM.PN ---
IMM 03/28/22, CM ATTEMPTED TO CALL PT'S /HCP CRISTO AT 1515 AT NUMBER ON FILE PER PT REQUEST AND TO DELIVER IMM, IMM TO BE MAILED CERTIFIED, INFORMATION FROM PREVIOUS ADMISSION. PT LIVES W/, DTR, ELOISA & GRANDCHILD, USES A WALKER, HAS [employer] [facility], [employer] 22HRS/WK, [employer] 2HRS/WK AND FAMILY SUPPORT, PCP REEMA [facility]GR[facility], [facility]. ANTIC PT WILL D/C HOME W/RESUMP OF SERVICES, PT IS NOT INTERESTED IN STR, FAMILY FOR TRANSPORT.
[2022-03-28 15:25] VITALS: BP 148/42; PULSE 79; RESP 19; TEMP 36.7; O2SAT 96
[2022-03-28 15:54] LABS: Glucose, Whole Blood 287 mg/dL (60-115)
[2022-03-28] MEDS: amLODIPine Besylate 5 MG TABLET PO (16:15)
[2022-03-28] MEDS: Furosemide 40 MG TABLET PO (16:15)
[2022-03-28 19:24] VITALS: BP 132/72; PULSE 73; RESP 18; TEMP 36.7; O2SAT 97
[2022-03-28] MEDS: Enoxaparin Sodium 40 MG/0.4 ML SYRINGE SUBCUT (19:33)
[2022-03-28] MEDS: Insulin Glargine,Hum.rec.anlog 100 UNIT/ML 10 ML VIAL 15 UNIT SUBCUT (19:34)
[2022-03-28] MEDS: Mirtazapine 30 MG TABLET PO (19:35)
[2022-03-28] MEDS: QUEtiapine Fumarate 25 MG TABLET PO (19:35)
[2022-03-28 19:52] LABS: Glucose, Whole Blood 284 mg/dL (60-115)
[2022-03-28 23:15] VITALS: BP 157/69; PULSE 97; RESP 17; TEMP 36.2; O2SAT 93
[2022-03-29 03:43] VITALS: BP 164/74; PULSE 75; RESP 17; TEMP 36; O2SAT 96
[2022-03-29 06:55] VITALS: BP 152/75; PULSE 88; RESP 18; TEMP 36.4; O2SAT 97
[2022-03-29 06:58] LABS: Creatinine Clr Calc Pharmacy 91.6; Estimated Glomerular Filt Rate > 60
[2022-03-29 07:29] LABS: Glucose, Whole Blood 121 mg/dL (60-115)
[2022-03-29] MEDS: predniSONE 5 MG TABLET 25 MG PO (09:27)
[2022-03-29] MEDS: Valsartan 80 MG TABLET PO (09:28)
[2022-03-29] MEDS: amLODIPine Besylate 5 MG TABLET PO (09:28)
[2022-03-29] MEDS: Furosemide 40 MG TABLET PO (09:28)
[2022-03-29] MEDS: vancomycin HCL 1,000 MG in 0.9 % Sodium Chloride 250 ML 270 MG IV (09:28)
[2022-03-29] MEDS: pyRIDostigmine bromide 60 MG TABLET PO ×2 (09:28→13:26)
[2022-03-29] MEDS: 0.9 % Sodium Chloride Flush 3 ML SYRINGE IVFLUSH (09:28)
[2022-03-29] MEDS: mycophenolate mofetiL 250 MG CAPSULE 500 MG PO (09:28)
[2022-03-29] MEDS: azaTHIOprine 50 MG TABLET PO (09:28)
[2022-03-29] MEDS: Gabapentin 300 MG CAPSULE PO (09:28)
[2022-03-29] MEDS: Triamcinolone Acet 0.1 % Cream 15 GM TUBE 1 APPL TOPICAL (09:29)
[2022-03-29] MEDS: Clotrimazole 1 % Cream 15 GM TUBE 1 APPL TOPICAL (09:29)
--- NOTE | 2022-03-29 09:35 | MHC.CM.PN ---
Addendum entered by Sonal Sanchez RN 03/29/22 10:22: CM SPOKE W/PT'S CRISTO AT 10:15AM AT NUMBER ON FILE WHO REPORTS HE WAS IN A SNF IN [facility] HOWEVER COULD NOT TELL CM THE NAME, CRISTO'S ONLY PREFERENCE WOULD BE TO KEEP PT CLOSER TO [place], PER DISCUSSION CM WILL BE IN CONTACT W/BED OFFERS. Original Note: PER HOSPITALIST/PT PT WILL NEED STR, BROAD REFERRALS PLACED AND CM WILL DISCUSS OPTIONS W/PT'S .
--- NOTE | 2022-03-29 10:59 | MHC.CM.PN ---
Addendum entered by Sonal Sanchez RN 03/29/22 14:20: CLARIFICATION, PT D/C'D TO [facility], CM HAS NOTIFED PT'S CRISTO AT 2:18PM AT NUMBER ON FILE Original Note: PT MEDICALLY CLEARED FOR D/C TO [facility], PCR ORDERED, CM SPOKE W/BOTH PT'S /HCP AND DTR [facility] WHO ARE AGREEABLE TO PLAN, PER [facility] THEY CAN TRANSPORT PT AT 1:30PM. HOSPITALIST/UNIT/NSG AWARE.
--- NOTE | 2022-03-29 11:32 | P.DS_ITS ---
DS: Providers Provider Date of Service: 03/29/22 Date of admission: 03/26/22 20:27 Primary care physician: Justino Lara MD DS: Diagnosis Discharge Diagnosis (1) Cellulitis: Status: Acute DS: Summary Hospital Course Hospital Course: history of presenting illness Date of Service: 03/26/22 Chief Complaint: Right lower extremity redness This is a 71-year-old male with a pertinent history of traumatic brain injury, type 2 diabetes mellitus, myasthenia gravis, essential hypertension, mixed hyperlipidemia who presents to the emergency department by EMS for right lower extremity redness, swelling and drainage.? Patient is a poor historian and states that this has been ongoing for a while.? Unable to contact at this time.? As per chart review, symptoms started 24 hours prior to presentation.? Patient denies any complaints at the time of my evaluation.? No orthopnea, PND, shortness of breath, chest pain.? No new leg swelling.? States he has had decreased p.o. intake over the last few days but is unable to give specifics.? Patient also denies fever, chills, changes in urinary or bowel habits In the emergency department, labs were significant for hyperglycemia and significant lactic acidosis. hospital course 71-year-old male with a pertinent history of traumatic brain injury, type 2 diabetes mellitus, myasthenia gravis, essential hypertension, mixed hyperlipidemia who presents to the emergency department by EMS for right lower extremity redness, swelling and drainage. #.? Acute right lower extremity purulent cellulitis, as well as left lower extremity mild cellulitis according patient and family patient has chronic right lower extremity redness but gotten worsened, patient denies associated fever chills, have normal WBC count blood cultures x2 are negative, patient treated with 3 days of IV vancomycin now being discharged home on oral doxycycline for 10 more days recommend to keep leg elevated dose of amlodipine reduced to 5 mg to avoid side effect of leg swelling, recommend to wear Jeremiah stockings after redness improves. #.? Lactic acidosis Seems chronic likely related to infection and being on metformin,will dc metformin #.? Type 2 diabetes mellitus with hyperglycemia and neuropathy will DC metformin due to lactic acidosis patient placed on glipizide XL 10 mg recommend to monitor blood sugars and increased dose of glipizide if not better may consider insulin #.? Myasthenia gravis-continue prednisone, mycophenolate and azathioprine #.? Mood disorder in a patient with traumatic brain injury -continue Remeron and Seroquel, patient does not have concept of time. #.? Essential hypertension - continue amlodipine 5 mg, Lasix and valsartan #.? Debility- seen by Physical therapy they recommend short-term rehab when medically cleared? due to gross deconditioning impaired gait pattern and bed mobility. patient will be discharged to rehab for less than 30 days Time Spent with Patient Time attestation: Total time spent providing and/or coordinating discharge services: Discharge coordination time: Greater than 30 minutes Quality: Safe Use of Opioids Does Pt have an Active Cancer Diagnosis on the Problem List?: No Quality: Stroke Does the patient have a stroke diagnosis?: No Physical Exam Vital Signs: Vital Signs: Last Vital Signs Temp 97.6 F 03/29/22 06:55 Pulse 88 03/29/22 06:55 Resp 18 03/29/22 06:55 BP 152/75 H 03/29/22 06:55 Pulse Ox 97 03/29/22 06:55 O2 Del Method 03/29/22 06:55 BMI result Body Mass Index 33.7 Const: Other: General awake alert, no acute distress.? Neck supple no JVD. CVS? regular rate rhythm, Respiratory lungs clear to auscultation, no respiratory distress, no wheeze, no rhonchi. Gastrointestinal abdomen soft, obese, nontender, bowel sounds audible, no guarding , no rigidity. Extremities ? Mild pitting edema with localized redness both lower extremities couple dry scabs, no purulent drainage noted, no warmth, no tenderness Neuro nonfocal, moving all 4 extremity, speech clear, stutter at times, has no concept of time. ? DS: Data Data Completed and Pending Labs on day of discharge: Laboratory Results - last 24 hr 03/28/22 03/28/22 03/28/22 11:20 15:28 19:27 Creatinine Estim Creat Clear Calc Estimated GFR POC Glucose 148 H 287 H 284 H 03/29/22 03/29/22 05:28 07:22 Creatinine 0.80 Estim Creat Clear Calc 91.6 Estimated GFR > 60 POC Glucose 121 H Preliminary micro results at discharge 03/26/22 14:36 Blood Culture - Preliminary Blood - Venous No growth after 48 hours. 03/26/22 14:36 Blood Culture - Preliminary Blood - Venous No growth after 48 hours. Discharge Plan Discharge Patient Disposition: Xfer SNF Discharge Diagnosis: bilateral lower extremity cellulitis lactic acidosis hyperglycemia due to diabetes type 2 Referrals: [facility] [Outside] - 1 Day (SHORT TERM REHAB) Justino Lara MD [Primary Care Provider] - 1 Week Discharge Medications: New doxycycline hyclate 100 mg capsule 100 mg PO BID Qty: 20 0RF amlodipine 5 mg Tablet 5 mg PO DAILY Qty: 30 0RF Protocol: Hold for SBP< HOLD for SBP < : 90 glipizide [Glucotrol XL] 10 mg tablet extended release 24hr 10 mg PO DAILY Qty: 30 0RF Continued quetiapine 25 mg tablet 1 tab PO BEDTIME valsartan 80 mg tablet 1 tab PO DAILY azathioprine 50 mg tablet 50 mg PO TID pyridostigmine bromide 60 mg tablet 1 tab PO QID loperamide 2 mg capsule 1 tab PO BID mycophenolate mofetil 500 mg tablet 1 tab PO BID gabapentin 300 mg capsule 1 cap PO BID clotrimazole 1 % cream 1 appl topical BID prednisone 10 mg tablet 25 mg PO DAILY furosemide 40 mg tablet 1 tab PO DAILY triamcinolone acetonide 0.1 % cream 1 appl topical BID mirtazapine 30 mg tablet 1 tab PO BEDTIME albuterol sulfate [Ventolin HFA] 90 mcg/actuation HFA aerosol inhaler 2 puff inhalation Q4H PRN (Reason: Wheezing) rosuvastatin 10 mg tablet 1 tab PO DAILY Discontinued amlodipine 10 mg tablet 10 mg PO DAILY metformin 500 mg tablet 1,000 mg PO BID Discharge Orders: Discharge Order (Routine); Ordered 03/29/22 Ordered By: Jose Orantes Diet: Diabetic diet Activity on Discharge: As tolerated Stand Alone Forms: Patient Portal Discharge page Care Plan Goals: right lower extremity cellulitis but noted to have redness left lower extremity has per patient is chronic will treat with ten-day course off antibiotics, recommend to keep legs elevated while sitting, dose of amlodipine lowered due to side above of leg edema hyperglycemia due to diabetes added glipizide 10 mg daily main crease dose further if noted to have persistent hyperglycemia check blood sugars b.i.d. metformin discontinued due to chronic lactic acidosis obesity weight reduction recommended Myasthenia gravis continue home medication Health Concerns: as above Plan of Treatment: follow-up with primary care physician after discharge from rehab facility being discharged to rehab facility for less than 30 days Assessment: as above
[2022-03-29 11:40] LABS: Glucose, Whole Blood 159 mg/dL (60-115)
[2022-03-29 11:44] VITALS: BP 160/68; PULSE 79; RESP 18; TEMP 37.2; O2SAT 97
[2022-03-29 12:01] LABS: Influenza A PCR NEGATIVE (Negative); Influenza B PCR NEGATIVE (Negative); Resp Syncy Virus RNA Qual PCR NEGATIVE (Negative); SARS COV2 PCR INHOUSE NEGATIVE (Negative)
== END 2022-03-29 14:00 | disposition skilled nursing facility (03) | DRG 603 ==
LOC: HO.ED 18:51 → HO.EDOVER 20:39 → HO.S3 03-27 07:19
PROVIDERS: Internal Medicine; Physician Assistant; Admitting Provider Student in an Organized Health Care Education/Training Program; Emergency Provider Emergency Medicine; PCP Internal Medicine; Visit Provider Hospitalist
DX: L03.115 Cellulitis of right lower limb (principal); E87.2 Acidosis; L03.116 Cellulitis of left lower limb; G70.00 Myasthenia gravis without (acute) exacerbation; E11.65 Type 2 diabetes mellitus with hyperglycemia; Z66 Do not resuscitate; E11.40 Type 2 diabetes mellitus with diabetic neuropathy, unspecified; I10 Essential (primary) hypertension; E78.2 Mixed hyperlipidemia; Z20.822 Contact with and (suspected) exposure to COVID-19; I25.2 Old myocardial infarction; Z87.891 Personal history of nicotine dependence; Z87.820 Personal history of traumatic brain injury; Z79.52 Long term (current) use of systemic steroids; Z79.84 Long term (current) use of oral hypoglycemic drugs; Z79.899 Other long term (current) drug therapy
CPT/HCPCS: 0241U; 36415; 71045; 74176; 80048; 80076; 80202; 81001; 82009; 82565; 82947; 83036; 83605; 83735; 83880; 85025; 85610; 85652; 86140; 87040; 87635; 93005; 96365; 96366; 96375; 97162; 99285; J0696; J1650; J1940; J3370

== ENCOUNTER 2022-04-21 07:52 | Observation (INO) | payer MEDICARE, MEDICAID, SELFPAY ==
--- NOTE | ~2022-04-21 | US_ITS ---
EXAMINATION: US VENOUS ULTRASOUND WITH DOPPLER LOWER EXTREMITY, BILATERAL CLINICAL INFORMATION: Lower extremity pain and swelling. COMPARISON: None TECHNIQUE: Ultrasound of the deep veins is performed from the hip to the calf with compression sonography and color and pulse Doppler assessment. Spectral analysis with color-flow imaging is performed. FINDINGS: RIGHT: Positive deep venous thrombosis is seen in the right peroneal vein. The right common femoral, deep femoral, femoral, popliteal and calf veins are patent. No right popliteal cyst. Moderate subcutaneous edema in the right calf. LEFT: The left peroneal vein was suboptimally interrogated, but occlusive thrombus is suspected. No evidence for deep venous thrombosis in the left common femoral, deep femoral, femoral, popliteal and calf veins. No left popliteal cyst. Moderate subcutaneous edema in the left calf. US/US venous duplex LE BI IMPRESSION: 1. Positive deep venous thrombosis in the right peroneal vein and probable left peroneal vein as well. The remainder of the lower extremity veins are patent. 2. Moderate subcutaneous edema in the calves bilaterally.
--- NOTE | ~2022-04-21 | XR_ITS ---
EXAMINATION: XR CHEST CLINICAL INFORMATION: Fluid retention COMPARISON: 03/26/2022 TECHNIQUE: Frontal view of the chest was obtained. FINDINGS: Cardiac leads overlie the chest. The lungs are well expanded. No consolidation or edema. Small left pleural effusion. No pneumothorax. The cardiomediastinal silhouette is within normal limits. No acute osseous abnormality. XR/XR chest 1V IMPRESSION: Small left pleural effusion. No edema.
[2022-04-21 07:57] VITALS: BP 109/59; BP 179/67; PULSE 90; PULSE 98; RESP 22; TEMP 37; O2SAT 96; O2SAT 97; BMI 35.2
--- NOTE | 2022-04-21 08:41 | ED.GENADULT ---
HPI - General Adult General Chief complaint: Extremity Problem Stated complaint: SI W/PLAN PER EMS Time Seen by Provider: 04/21/22 08:15 Source: patient and EMS Mode of arrival: EMS Limitations: no limitations History of Present Illness HPI narrative: Patient is a 71 year old assigned male at with a history of chronic lactic acidosis, edema, cardiac arrest with ROSC and anoxic brain injury, and diabetes, presenting to the emergency department today with bilateral lower leg weeping. Patient states that over the last few days, he has had much more swelling in his lower legs and it has caused extensive weeping, to the point where he has puddles around his legs when sitting. Patient denies any dizziness, lightheadedness, abdominal pain, nausea, vomiting, fever, chills, blurry vision, double vision, loss of vision, chest pain, difficulty breathing, shortness of breath, back pain, night sweats, pain with urination, increased urinary frequency, increased urinary urgency, blood in his urine or stool, syncope or a near syncopal episode, recent trauma or falls, bowel incontinence, bladder incontinence, bowel retention, bladder retention, or any other complaints at this time. Onset (ago): day(s) Location: left, right and lower extremity Radiation: non-radiation Severity: mild Severity scale (1-10): 4 Quality: constant Pain Consistency: constant Relieving factors: none Exacerbating factors: none Associated symptoms: denies other symptoms Treatments prior to arrival: none Related Data Home Medications Medication Instructions Recorded Confirmed azathioprine 50 mg tablet 50 mg PO TID 06/02/20 04/21/22 pyridostigmine bromide 60 mg tablet 1 tab PO QID 06/02/20 04/21/22 quetiapine 25 mg tablet 1 tab PO BEDTIME 06/02/20 04/21/22 valsartan 80 mg tablet 1 tab PO DAILY 06/02/20 04/21/22 clotrimazole 1 % topical cream 1 appl topical BID PRN TOE, RASH 08/24/21 04/21/22 gabapentin 300 mg capsule 1 cap PO BID@0800,1600 08/24/21 04/21/22 loperamide 2 mg capsule 1 tab PO BID@0800,1600 08/24/21 04/21/22 mycophenolate mofetil 500 mg tablet 1 tab PO BID@0800,1600 08/24/21 04/21/22 prednisone 10 mg tablet 25 mg PO DAILY 11/30/21 04/21/22 albuterol sulfate 90 mcg/actuation 2 puff inhalation Q4H PRN Wheezing 01/23/22 04/21/22 aerosol inhaler (Ventolin HFA) furosemide 40 mg tablet 80 mg PO DAILY 01/23/22 04/21/22 mirtazapine 30 mg tablet 1 tab PO BEDTIME 01/23/22 04/21/22 triamcinolone acetonide 0.1 % 1 appl topical BID PRN RASH, FOOT 01/23/22 04/21/22 topical cream glipizide 5 mg tablet 10 mg PO BID@0800,1600 04/21/22 04/21/22 Previous Rx's Medication Instructions Recorded amlodipine 5 mg tablet 5 mg PO DAILY #30 tabs 03/29/22 rosuvastatin 20 mg tablet 20 mg PO DAILY 90 days #90 tabs 04/06/22 Allergies Allergy/AdvReac Type Severity Reaction Status Date / Time No Known Allergies Allergy Verified 09/02/21 14:18 [No Known Allergies*] Review of Systems Constitutional: Constitutional: Reports no additional constitutional complaints, Denies chills, Denies fever(s) and Denies night sweats Eyes: Eyes: Reports no additional eye complaints, Denies blurry vision, Denies change in vision, Denies diplopia, Denies eye discharge, Denies loss of vision and Denies eye pain ENT: Denies dizziness Cardiovascular: Cardiovascular: Reports no additional cardiovascular complaints, Denies chest pain, Reports leg edema, Denies lightheadedness, Denies Loss of Consciousness and Denies dyspnea Respiratory: Respiratory: Reports no additional respiratory complaints and Denies dyspnea Gastrointestinal: Gastrointestinal: Reports no additional gastrointestinal complaints, Denies abdominal pain, Denies melena, Denies hematochezia, Denies change in bowel habits and Denies change in stool character Genitourinary: Genitourinary: Reports no additional male genitourinary complaints, Denies hematuria, Denies oliguria, Denies difficulty urinating, Denies dysuria, Denies urinary frequency, Denies urinary hesitancy, Denies urinary incontinence and Denies urinary urgency Musculoskeletal: Musculoskeletal: Reports no additional musculoskeletal complaints, Denies numbness and Denies tingling Neurologic: Denies dizziness, Denies loss of vision, Denies numbness and Denies tingling Psychiatric: Psychiatric: Reports no additional psychiatric complaints Endocrine: Endocrine: Reports no additional endocrine complaints Hematologic/Lymphatic: Hematologic/Lymphatic: Reports no additional hematologic/lymphatic complaints Allergic/Immunologic: Allergic/Immunologic: Reports no additional allergic/immunologic complaints [facility] Past Medical History Attestation statement: The following information was validated with the patient. Source: old records reviewed Medical History Aspiration pneumonia CHF (congestive heart failure) Diabetes Diabetes mellitus, type 2 Erythema of lower extremity Hypercholesteremia Hypertension Intractable nausea and vomiting Leg edema Myasthenia gravis Myasthenia gravis Myasthenia gravis Myocardial infarction Obesity TBI (traumatic brain injury) Family History Family History Other No family history of coronary artery disease Social History Social History Household Members: Family Housing: House Do you presently have visiting nurse or other home services: Yes Unable to assess alcohol history related to: Unknown Alcohol intake: never Patient Tobacco Use Status: Former Tobacco user Tobacco use type: Cigarette Second Hand Smoke Exposure: Yes Substance Use Type: Former Substance User Advance Directives: Yes Advance Directives on File: Yes Advance Directives Date on File: 05/05/21 service: No Current occupational status: retired Physical Exam ED Vital Signs: Vital Signs - 24 hr 04/21/22 07:57 Temperature 98.6 F Pulse Rate 98 Respiratory Rate 22 H Blood Pressure 179/67 H Pulse Oximetry 97 Oxygen Delivery Method Room Air BMI result Body Mass Index 35.2 Const General: cooperative, no acute distress, alert and awake Nutritional Appearance: obese morbidly obese Orientation/consciousness: patient oriented x3 Limitations: no limitations HENMT Head: Yes normal to inspection and Yes atraumatic Ears: hearing grossly normal bilaterally and external ears normal General nose exam: Normal external nose present, no nasal discharge noted and no epistaxis Face and sinus: Yes normal facial exam, No abrasion and No laceration Mouth: Normal oral and palatal mucosa present, no drooling and no muffled voice Eyes General: appearance normal, both eyes and all related structures Periorbital: periorbital findings normal Eyelids: Yes eyelids normal Conjunctivae: conjunctivae normal Pupils: Equal, round and reactive pupils present EOM: EOMs intact bilaterally Neck Neck: Yes normal visual inspection, Yes full ROM and Yes no lymphadenopathy Chest Chest palpation & inspection: normal inspection of the chest Resp Effort & Inspection: normal respiratory effort and able to speak in complete sentences Cardio Rate: regular rate Rhythm: regular rhythm GI Inspection: Yes normal to inspection Neuro General: patient oriented x3 and moves all extremities Cranial nerves: Yes Equal, round and reactive pupils present Cognition (Neuro): normal cognition Motor exam (neuro): 5/5 motor strength present throughout Sensory Exam: Normal double simultaneous stimulation for sensation Coordination: [id number] test normal Extrem General: Yes full ROM and Yes capillary refill normal Right lower extremity: edema Details: pitting Left lower extremity: edema Details: pitting Psych Appearance: grossly normal Mental Status: mental status grossly normal Affect: normal affect Attitude: cooperative Thought process: Normal thought process present Thought content: Normal thought content present Insight: Good insight present (Psych) Medical Decision Making MDM Narrative Medical decision making narrative: Patient is a 71 year old assigned male at with a history of edema, TBI, and DM presenting to the emergency department today with worsening lower leg edema and pain. Patient's physical exam showed bilateral lower leg swelling with significant weeping and developing venous stasis dermatitis. Patient's blood work was unremarkable. Patient's urine showed no acute process. Patient's EKG was unremarkable. Patient's chest x-ray is pending. Patient's bilateral lower leg US showed a new DVT in the right peroneal vein and a probable left peroneal DVT. Patient was given heparin and IV lasix. I explained my physical exam findings as well as all test results to the patient. I answered all questions asked by the patient. I spoke to the hospitalist team who agreed to admission. Patient verbalized agreement and understanding with this treatment plan and admission. Medical Records Medical records reviewed: Yes I reviewed the patient's medical records. Lab Data Lab results reviewed: Yes I reviewed the patient's lab results. Result diagrams: 04/21/22 08:44 04/21/22 08:44 Labs: Lab Results 04/21/22 04/21/22 04/21/22 Range/Units 08:44 08:44 08:44 WBC 8.6 (4.8-10.8) X10*3/uL RBC 4.14 L (4.60-5.80) X10*6/uL Hgb 11.6 L (14.0-18.0) g/dl Hct 37.7 L (42.0-52.0) % MCV 91.1 (80.0-98.0) fL MCH 28.0 (27.0-33.0) pg MCHC 30.8 L (31.0-36.0) g/dl RDW 18.6 H (11.0-16.0) % Plt Count 195 (160-400) X10*3/uL MPV 9.5 (9.4-12.4) fL Immature Gran % (Auto) 2.2 H (0.0-0.4) % Neut % (Auto) 76.3 H (45-73) % Lymph % (Auto) 15.0 L (20-40) % [place] % (Auto) 5.8 (2-11) % Eos % (Auto) 0.5 (0-4) % Baso % (Auto) 0.2 (0-2) % Lymph # (Auto) 1.3 (1.2-4.9) X10*3/uL [place] # (Auto) 0.5 (0.1-1.2) X10*3/uL Eos # (Auto) 0.0 (0.0-0.4) X10*3/uL Baso # (Auto) 0.0 (0.0-0.2) X10*3/uL Abs Immat Gran (auto) 0.19 H (0.00-0.03) X10*3/uL Absolute Neuts (auto) 6.5 (2.0-8.3) x10*3/uL Absolute Nucleated RBC 0.040 H (0.0-0.012) X10*3/uL Nucleated RBC % (auto) 0.5 H (0.0-0.2) /100WBC PT 10.5 (10.0-13.1) SEC INR 0.9 (0.9-1.1) APTT 27.5 (26.0-36.4) SEC Sodium 144 (135-145) mmol/L Potassium 4.9 D (3.3-5.1) mmol/L Chloride 103 (96-108) mmol/L Carbon Dioxide 26 (22-29) mmol/L Anion Gap 20 (12-20) BUN 21 H (9-16) mg/dL Creatinine 0.85 (0.5-1.4) mg/dL Estim Creat Clear Calc 88.1 Estimated GFR > 60 Random Glucose 163 H D (60-115) mg/dL Lactic Acid (0.5-2.0) mmol/L Calcium 8.8 D (8.4-10.2) mg/dL Total Bilirubin 0.4 (0.0-1.0) mg/dL Direct Bilirubin 0.2 (0.0-0.5) mg/dL AST 46 H (5-37) U/L ALT 47 H (0-40) U/L Alkaline Phosphatase 49 (39-117) U/L B-Natriuretic Peptide (<100) pg/mL Total Protein 6.0 L (6.5-8.0) g/dL Albumin 3.6 (3.5-5.0) g/dL Urine Color Urine Appearance Urine pH (5.0-9.0) Ur Specific [place] (1.005-1.025) Urine Protein (Neg-Trace) mg/dL Urine Glucose (UA) (Negative) mg/dL Urine Ketones (Negative) mg/dL Urine Blood (Negative) Urine Nitrite (Negative) Ur Leukocyte Esterase (Negative) Urine RBC (0-2) /HPF Urine WBC (0-5) /HPF Ur Squamous Epith Cells (0-2) /HPF Urine Bacteria (None Seen) Hyaline Casts (0-2) /LPF 04/21/22 04/21/22 04/21/22 Range/Units 08:45 08:57 09:50 WBC (4.8-10.8) X10*3/uL RBC (4.60-5.80) X10*6/uL Hgb (14.0-18.0) g/dl Hct (42.0-52.0) % MCV (80.0-98.0) fL MCH (27.0-33.0) pg MCHC (31.0-36.0) g/dl RDW (11.0-16.0) % Plt Count (160-400) X10*3/uL MPV (9.4-12.4) fL Immature Gran % (Auto) (0.0-0.4) % Neut % (Auto) (45-73) % Lymph % (Auto) (20-40) % [place] % (Auto) (2-11) % Eos % (Auto) (0-4) % Baso % (Auto) (0-2) % Lymph # (Auto) (1.2-4.9) X10*3/uL [place] # (Auto) (0.1-1.2) X10*3/uL Eos # (Auto) (0.0-0.4) X10*3/uL Baso # (Auto) (0.0-0.2) X10*3/uL Abs Immat Gran (auto) (0.00-0.03) X10*3/uL Absolute Neuts (auto) (2.0-8.3) x10*3/uL Absolute Nucleated RBC (0.0-0.012) X10*3/uL Nucleated RBC % (auto) (0.0-0.2) /100WBC PT (10.0-13.1) SEC INR (0.9-1.1) APTT (26.0-36.4) SEC Sodium (135-145) mmol/L Potassium (3.3-5.1) mmol/L Chloride (96-108) mmol/L Carbon Dioxide (22-29) mmol/L Anion Gap (12-20) BUN (9-16) mg/dL Creatinine (0.5-1.4) mg/dL Estim Creat Clear Calc Estimated GFR Random Glucose (60-115) mg/dL Lactic Acid 5.9 H* (0.5-2.0) mmol/L Calcium (8.4-10.2) mg/dL Total Bilirubin (0.0-1.0) mg/dL Direct Bilirubin (0.0-0.5) mg/dL AST (5-37) U/L ALT (0-40) U/L Alkaline Phosphatase (39-117) U/L B-Natriuretic Peptide 25 (<100) pg/mL Total Protein (6.5-8.0) g/dL Albumin (3.5-5.0) g/dL Urine Color Dark Yellow Urine Appearance Clear Urine pH 5.5 (5.0-9.0) Ur Specific [place] >= 1.030 H (1.005-1.025) Urine Protein Trace (Neg-Trace) mg/dL Urine Glucose (UA) >=1000 H (Negative) mg/dL Urine Ketones Trace (Negative) mg/dL Urine Blood Negative (Negative) Urine Nitrite Negative (Negative) Ur Leukocyte Esterase Negative (Negative) Urine RBC 0-2 (0-2) /HPF Urine WBC 0-5 (0-5) /HPF Ur Squamous Epith Cells 0-2 (0-2) /HPF Urine Bacteria None Seen (None Seen) Hyaline Casts 0-2 (0-2) /LPF Imaging Data Venous US: Attestation: I personally reviewed and interpreted this imaging study as follows: My impression: Acute DVT. Radiologist's impression: EXAMINATION:? US VENOUS ULTRASOUND WITH DOPPLER LOWER EXTREMITY, BILATERAL CLINICAL INFORMATION:? Lower extremity pain and swelling. COMPARISON:? None TECHNIQUE: Ultrasound of the deep veins is performed from the hip to the calf with compression sonography and color and pulse Doppler assessment. Spectral analysis with color-flow imaging is performed. FINDINGS: RIGHT: Positive deep venous thrombosis is seen in the right peroneal vein. The right common femoral, deep femoral, femoral, popliteal and calf veins are patent. No right popliteal cyst. Moderate subcutaneous edema in the right calf. LEFT: The left peroneal vein was suboptimally interrogated, but occlusive thrombus is suspected. No evidence for deep venous thrombosis in the left common femoral, deep femoral, femoral, popliteal and calf veins. No left popliteal cyst. Moderate subcutaneous edema in the left calf. US/US venous duplex LE BI IMPRESSION: 1. Positive deep venous thrombosis in the right peroneal vein and probable left peroneal vein as well. The remainder of the lower extremity veins are patent. 2. Moderate subcutaneous edema in the calves bilaterally. Dictated By: Hawk Ordonez MD Signed By: Electronically signed by Hawk Ordonez MD 04/21/22 6641 ECG Data Attestation: I personally reviewed and interpreted this ECG as follows: Prior ECG tracings: available for review Interpretation: Vent. Rate: 089 BPM ? ? Atrial Rate: 089 BPM P-R Int: 134 ms? QRS Dur: 086 ms QT Int: 360 ms ? ? ? P-R-T Axes: 054 -20 045 degrees QTc Int: 438 ms ? Normal sinus rhythm with sinus arrhythmia Normal ECG When compared with ECG of 26-MAR-2022 14:14, No significant change was found DD/ [id number] Critical Care Time Critical Care Time Critical Care Time: Yes Total Critical Care Time: 30 Attestation: I spent 30 minutes of Critical Care Time with this patient. This does not include time spent on separately reported billable procedures. Discharge Plan Discharge Clinical Impression: Edema, DVT (deep venous thrombosis) Patient Disposition: Admitted As Inpatient Prescriptions: No Action rosuvastatin 20 mg tablet 20 mg PO DAILY 90 Days Qty: 90 0RF quetiapine 25 mg tablet 1 tab PO BEDTIME valsartan 80 mg tablet 1 tab PO DAILY azathioprine 50 mg tablet 50 mg PO TID pyridostigmine bromide 60 mg tablet 1 tab PO QID loperamide 2 mg capsule 1 tab PO BID@0800,1600 mycophenolate mofetil 500 mg tablet 1 tab PO BID@0800,1600 gabapentin 300 mg capsule 1 cap PO BID@0800,1600 clotrimazole 1 % cream 1 appl topical BID PRN (Reason: TOE, RASH) prednisone 10 mg tablet 25 mg PO DAILY furosemide 40 mg tablet 80 mg PO DAILY triamcinolone acetonide 0.1 % cream 1 appl topical BID PRN (Reason: RASH, FOOT) mirtazapine 30 mg tablet 1 tab PO BEDTIME albuterol sulfate [Ventolin HFA] 90 mcg/actuation HFA aerosol inhaler 2 puff inhalation Q4H PRN (Reason: Wheezing) amlodipine 5 mg Tablet 5 mg PO DAILY Qty: 30 0RF Protocol: Hold for SBP< HOLD for SBP < : 90 glipizide 5 mg tablet 10 mg PO BID@0800,1600 Print Language: Citizen [place]
--- NOTE | 2022-04-21 08:45 | PC.NURSE ---
PT reports bilateral lower leg swelling with pain, and weeping. Denies chest pain, SOB, dizziness or headache. LSCTA. IV inserted, medications given as documented.
--- NOTE | 2022-04-21 08:48 | ECG_ITS ---
Test Reason : BILAT LEG SWELLING Blood Pressure : / mmHG Vent. Rate : 089 BPM Atrial Rate : 089 BPM P-R Int : 134 ms QRS Dur : 086 ms QT Int : 360 ms P-R-T Axes : 054 -20 045 degrees QTc Int : 438 ms Normal sinus rhythm with sinus arrhythmia Left axis deviation Low voltage QRS Intra-ventricular conduction delay Abnormal ECG When compared with ECG of 26-MAR-2022 14:14, No significant change was found Referred By: Dottie Craig Electronically Signed By:JENIFFER CHUNG MD
[2022-04-21 08:53] LABS: MANUAL DIFF FLAG NO
[2022-04-21 08:56] LABS: Basophils Percent Auto 0.2 % (0-2); Eosinophils Percent Auto 0.5 % (0-4); Hematocrit 37.7 % (42.0-52.0); Hemoglobin 11.6 g/dl (14.0-18.0); Imm Gran Abs Auto 0.19 X10*3/uL (0.00-0.03); Imm Gran Pct Auto 2.2 % (0.0-0.4); Lymphocytes Absolute Auto 1.3 X10*3/uL (1.2-4.9); Mean Corpuscular HGB Conc 30.8 g/dl (31.0-36.0); Mean Corpuscular Volume 91.1 fL (80.0-98.0); Mean Platelet Volume 9.5 fL (9.4-12.4); Monocytes Absolute Auto 0.5 X10*3/uL (0.1-1.2); Monocytes Percent Auto 5.8 % (2-11); NRBC Pct Auto 0.5 /100WBC (0.0-0.2); Neutrophils Absolute Auto 6.5 x10*3/uL (2.0-8.3); Neutrophils Percent Auto 76.3 % (45-73); Platelet Count 195 X10*3/uL (160-400); Red Blood Count 4.14 X10*6/uL (4.60-5.80); Red Cell Distribution Width 18.6 % (11.0-16.0); White Blood Count 8.6 X10*3/uL (4.8-10.8)
[2022-04-21 09:00] LABS: INTERNATIONAL NORM RATIO 0.9 (0.9-1.1); Prothrombin Time 10.5 SEC (10.0-13.1)
[2022-04-21 09:03] LABS: Partial Thromboplastin Time 27.5 SEC (26.0-36.4)
[2022-04-21 09:12] LABS: Lactic Acid 5.9 mmol/L (0.5-2.0)
[2022-04-21 09:12] LABS: Alanine Aminotransferase 47 U/L (0-40); Albumin Level 3.6 g/dL (3.5-5.0); Alkaline Phosphatase 49 U/L (39-117); Anion Gap 20 (12-20); Aspartate Amino Transferase 46 U/L (5-37); Bilirubin Direct 0.2 mg/dL (0.0-0.5); Bilirubin Total 0.4 mg/dL (0.0-1.0); Blood Urea Nitrogen 21 mg/dL (9-16); Calcium 8.8 mg/dL (8.4-10.2); Carbon Dioxide 26 mmol/L (22-29); Chloride 103 mmol/L (96-108); Creatinine Clr Calc Pharmacy 88.1; Estimated Glomerular Filt Rate > 60; Glucose Random 163 mg/dL (60-115); Potassium 4.9 mmol/L (3.3-5.1); Sodium 144 mmol/L (135-145)
[2022-04-21 09:26] LABS: B Type Natriuretic Peptide 25 pg/mL (<100)
[2022-04-21] MEDS: Furosemide 100 MG/10 ML VIAL 80 MG IVPUSH (09:40)
--- NOTE | 2022-04-21 09:55 | PHA.MEDREC ---
Pharmacy Consult ? Medication Reconciliation Pharmacy has completed the medication reconciliation. Patient came with a comprehensive list. Cross check with claim histroy and last discharge summary. Confirm with patient's daughter patient is takign lasix 80 mg daily and glipizde 10 mg BID. Shirley Esposito, PharmD
[2022-04-21 10:01] LABS: Appearance Urine Clear; Color Urine Dark Yellow; Glucose Urine UA >=1000 mg/dL (Negative); Leukocyte Esterase Urine Negative (Negative); Nitrite Urine Negative (Negative); PH 5.5 (5.0-9.0); Specific Gravity - Urine >= 1.030 (1.005-1.025); UMIC TRIGGER UACC YES; Urine Blood Negative (Negative); Urine Ketones Trace mg/dL (Negative); Urine Protein Trace mg/dL (Neg-Trace)
[2022-04-21 10:03] LABS: Bacteria Urine None Seen (None Seen); Hyaline Casts Urine 0-2 /LPF (0-2); RBC Urine 0-2 /HPF (0-2); Squamous Epithelial Cell Urine 0-2 /HPF (0-2); WBC Urine 0-5 /HPF (0-5)
[2022-04-21] MEDS: Heparin Sodium,Porcine 5,000 UNIT/ML VIAL 8200 UNIT IVPUSH (10:29)
[2022-04-21] MEDS: Heparin Sodium,Porcine/1/2NS 25,000 UNIT/250 ML IV.SOLN 14.48 UNIT IVCONT (10:46)
[2022-04-21 10:52] LABS: Reflex Lactate? Lactic Acid Added
--- NOTE | 2022-04-21 11:11 | PC.NURSE ---
Venous duplex + for right DVT. Heparin drip started as documented. Next PTT due at 1446.
[2022-04-21 11:45] LABS: COVID-19 Test Negative (Negative); IDNOW Serial# 16C4AD1C
--- NOTE | 2022-04-21 11:45 | PC.NURSE ---
spoke with nurse about lactic draw for pt. Went in to draw pt and he refused to due labs because they are always finding something wrong with me so if you dont draw me we wont find anything wrong
[2022-04-21] MEDS: pyRIDostigmine bromide 60 MG TABLET PO ×3 (13:25→21:54)
[2022-04-21] MEDS: predniSONE 5 MG TABLET 25 MG PO (13:26)
[2022-04-21] MEDS: amLODIPine Besylate 5 MG TABLET PO (13:26)
[2022-04-21] MEDS: Valsartan 80 MG TABLET PO (13:33)
--- NOTE | 2022-04-21 14:03 | P.HPHOSP_ITS ---
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 The patient knows that have been puddles of fluid around his legs when sitting. He denies any history of fevers, chills, abdominal pain, nausea, vomiting, shortness of breath, dyspnea on exertion, orthopnea, or chest pain. Hematology study show stable normocytic anemia. Renal function and electrolyte levels are stable. Patient appears have a chronic lactic acidosis improved from baseline today at 5.9 initially and 5.0 on repeat. Baseline transaminitis AST 46, ALT 47. BNP 25. CXR shows new small left-sided pleural effusion. No edema. Venous duplex the bilateral lower extremities is positive for DVT right peroneal vein and probable left peroneal v ein as well. Pt started on heparin drip per protocol in the ED. patient also given 80 mg furosemide. Review of Systems Review of Systems: General: No fevers, malaise, unintentional weight loss HEENT: No blurred vision or diplopia Cardiovascular: + bilateral lower extremity edema. No chest pain, palpitations Respiratory: No shortness of breath, wheezing, cough GI: No abdominal pain, nausea, vomiting, diarrhea, constipation, melena, hematochezia : No dysuria, hematuria, increased urinary frequency, or oliguria MSK: No extremity pain Neuro: No headaches, weakness, paresthesias Skin: + chronic bilateral lower extremity wounds [facility] Medical History Aspiration pneumonia CHF (congestive heart failure) Diabetes Diabetes mellitus, type 2 Erythema of lower extremity Hypercholesteremia Hypertension Intractable nausea and vomiting Leg edema Myasthenia gravis Myasthenia gravis Myasthenia gravis Myocardial infarction Obesity TBI (traumatic brain injury) Family History Mother No problems noted. Father No problems noted. Other No family history of coronary artery disease Social History Household Members: Family Housing: House Do you presently have visiting nurse or other home services: Yes Unable to assess alcohol history related to: Unknown Alcohol intake: never Patient Tobacco Use Status: Former Tobacco user Tobacco use type: Cigarette Second Hand Smoke Exposure: Yes Substance Use Type: Former Substance User Advance Directives: Yes Advance Directives on File: Yes Advance Directives Date on File: 05/05/21 service: No Current occupational status: retired Meds Allergies Allergy/AdvReac Type Severity Reaction Status Date / Time No Known Allergies Allergy Verified 09/02/21 14:18 [No Known Allergies*] Active Medications: Current Medications Acetaminophen (Acetaminophen 325 Mg Tablet) 650 mg PO Q6H PRN PRN Reason: Pain, Mild (Pain Scale 1-3) Amlodipine Besylate (Amlodipine Besylate 5 Mg Tablet) 5 mg PO DAILY [facility]; Protocol Last Admin: 04/21/22 13:26 Dose: 5 mg Atorvastatin Calcium (Atorvastatin Calcium 80 Mg Tablet) 80 mg PO DAILY [facility] Azathioprine (Azathioprine 50 Mg Tablet) 50 mg PO TID [facility] Docusate Sodium (Docusate Sodium 100 Mg Capsule) 100 mg PO DAILY PRN PRN Reason: Constipation Gabapentin (Gabapentin 300 Mg Capsule) 300 mg PO BID@0800,1600 [facility] Glipizide (Glipizide 10 Mg Tablet) 10 mg PO BID@0800,1600 [facility] Heparin Sodium (Porcine) (Heparin Sodium,Porcine 5,000 Unit/Ml Vial) 4,100 unit 40 unit/kg (4100 unit) IVPUSH PROTOCOL BOLUS PRN; Protocol PRN Reason: 40 unit/kg - Heparin Protocol Heparin Sodium (Porcine) (Heparin Sodium,Porcine 5,000 Unit/Ml Vial) 8,200 unit 80 unit/kg (8200 unit) IVPUSH PROTOCOL BOLUS PRN; Protocol PRN Reason: 80 unit/kg - Heparin Protocol Heparin Sodium/Sodium Chloride (Heparin Sodium,Porcine/1/2ns) 25,000 unit in 250 mls @ 0 mls/hr IVCONT .Q0M [facility]; Protocol Last Admin: 04/21/22 10:46 Dose: 14 units/kg/hr, 14.48 mls/hr Loperamide HCl (Loperamide Hcl 2 Mg Capsule) 2 mg PO BID@0800,1600 [facility] Mirtazapine (Mirtazapine 30 Mg Tablet) 30 mg PO BEDTIME P[place]ON Non-Formulary Medication (Mycophenolate Mofetil) 1 tab PO BID@0800,1600 [facility] Ondansetron HCl (Ondansetron Hcl 4 Mg/2 Ml Vial) 4 mg IVPUSH Q8H PRN PRN Reason: Nausea and Vomiting Pharmacy Consult (Consult Rx Perform Med Rec) 1 each MISCELLANE ONCE PRN PRN Reason: Consult order Prednisone (Prednisone 5 Mg Tablet) 25 mg PO DAILY [facility] Last Admin: 04/21/22 13:26 Dose: 25 mg Pyridostigmine [place] (Pyridostigmine [place] 60 Mg Tablet) 60 mg PO QID [facility] Last Admin: 04/21/22 13:25 Dose: 60 mg Quetiapine Fumarate (Quetiapine Fumarate 25 Mg Tablet) 25 mg PO BEDTIME [facility] Sodium Chloride (0.9 % Sodium Chloride Flush 3 Ml Syringe) 3 ml IVFLUSH QSHIFT [facility] Valsartan (Valsartan 80 Mg Tablet) 80 mg PO DAILY [facility]; Protocol Last Admin: 04/21/22 13:33 Dose: 80 mg Home Medications Medication Instructions Recorded Confirmed Last Taken Type azathioprine 50 mg tablet 50 mg PO TID 06/02/20 04/21/22 04/20/22 History pyridostigmine bromide 60 mg tablet 1 tab PO QID 06/02/20 04/21/22 04/20/22 History quetiapine 25 mg tablet 1 tab PO BEDTIME 06/02/20 04/21/22 04/20/22 History valsartan 80 mg tablet 1 tab PO DAILY 06/02/20 04/21/22 04/20/22 History clotrimazole 1 % topical cream 1 appl topical BID PRN TOE, RASH 08/24/21 04/21/22 08/24/21 History gabapentin 300 mg capsule 1 cap PO BID@0800,1600 08/24/21 04/21/22 04/20/22 History loperamide 2 mg capsule 1 tab PO BID@0800,1600 08/24/21 04/21/22 04/20/22 History mycophenolate mofetil 500 mg tablet 1 tab PO BID@0800,1600 08/24/21 04/21/22 04/20/22 History prednisone 10 mg tablet 25 mg PO DAILY 11/30/21 04/21/22 04/20/22 History albuterol sulfate 90 mcg/actuation 2 puff inhalation Q4H PRN Wheezing 01/23/22 04/21/22 Unknown History aerosol inhaler (Ventolin HFA) furosemide 40 mg tablet 80 mg PO DAILY 01/23/22 04/21/22 04/20/22 History mirtazapine 30 mg tablet 1 tab PO BEDTIME 01/23/22 04/21/22 04/20/22 History triamcinolone acetonide 0.1 % 1 appl topical BID PRN RASH, FOOT 01/23/22 04/21/22 Unknown History topical cream glipizide 5 mg tablet 10 mg PO BID@0800,1600 04/21/22 04/21/22 04/20/22 History Physical Exam Vital Signs and Narrative: Vital Signs: Last Vital Signs Temp 98.6 F 04/21/22 07:57 Pulse 98 04/21/22 07:57 Resp 22 H 04/21/22 07:57 BP 179/67 H 04/21/22 07:57 Pulse Ox 97 04/21/22 07:57 O2 Del Method 04/21/22 07:57 BMI result Body Mass Index 35.2 Constitutional - Awake and Alert, No apparent distress Eyes - PERRLA, EOMI Cardiovascular - S1S2, RRR, 4+ pitting edema BLE Respiratory - Normal lung expansion, Normal respiratory effort, No respiratory distress, scattered crackles bilaterally Gastrointestinal - NT / ND; +BS; No rebound or guarding Extremities - no lower extremitity tenderness or erythema, 4+ pitting edema BLE Skin - Warm/Dry. Chronic erythematous venous stasis ulcers medial aspect BLE. See photo Neurological - Alert & oriented x3, Repetative secondary to anoxia brain injury. CN II -XII in tact. 4/5 strength BUE and BLE Psychological - Appropriate affect Results Labs CBC and Chem 7: 04/21/22 08:44 04/21/22 08:44 Labs: Laboratory Results - last 24 hr 04/21/22 04/21/22 04/21/22 08:44 08:44 08:44 MCV 91.1 MCH 28.0 MCHC 30.8 L RDW 18.6 H Plt Count 195 MPV 9.5 Immature Gran % (Auto) 2.2 H Neut % (Auto) 76.3 H Lymph % (Auto) 15.0 L [place] % (Auto) 5.8 Eos % (Auto) 0.5 Baso % (Auto) 0.2 Lymph # (Auto) 1.3 [place] # (Auto) 0.5 Eos # (Auto) 0.0 Baso # (Auto) 0.0 Abs Immat Gran (auto) 0.19 H Absolute Neuts (auto) 6.5 Absolute Nucleated RBC 0.040 H Nucleated RBC % (auto) 0.5 H PT 10.5 INR 0.9 APTT 27.5 Anion Gap 20 Estim Creat Clear Calc 88.1 Estimated GFR > 60 Random Glucose 163 H D Lactic Acid Lactic Acid F/U @ 2Hr Calcium 8.8 D Total Bilirubin 0.4 Direct Bilirubin 0.2 AST 46 H ALT 47 H Alkaline Phosphatase 49 B-Natriuretic Peptide Total Protein 6.0 L Albumin 3.6 Urine Color Urine Appearance Urine pH Ur Specific [place] Urine Protein Urine Glucose (UA) Urine Ketones Urine Blood Urine Nitrite Ur Leukocyte Esterase Urine RBC Urine WBC Ur Squamous Epith Cells Urine Bacteria Hyaline Casts COVID-19 (MANISHA) COVID-19 [email or web address] 04/21/22 04/21/22 04/21/22 08:45 08:57 09:50 MCV MCH MCHC RDW Plt Count MPV Immature Gran % (Auto) Neut % (Auto) Lymph % (Auto) [place] % (Auto) Eos % (Auto) Baso % (Auto) Lymph # (Auto) [place] # (Auto) Eos # (Auto) Baso # (Auto) Abs Immat Gran (auto) Absolute Neuts (auto) Absolute Nucleated RBC Nucleated RBC % (auto) PT INR APTT Anion Gap Estim Creat Clear Calc Estimated GFR Random Glucose Lactic Acid 5.9 H* Lactic Acid F/U @ 2Hr Calcium Total Bilirubin Direct Bilirubin AST ALT Alkaline Phosphatase B-Natriuretic Peptide 25 Total Protein Albumin Urine Color Dark Yellow Urine Appearance Clear Urine pH 5.5 Ur Specific [place] >= 1.030 H Urine Protein Trace Urine Glucose (UA) >=1000 H Urine Ketones Trace Urine Blood Negative Urine Nitrite Negative Ur Leukocyte Esterase Negative Urine RBC 0-2 Urine WBC 0-5 Ur Squamous Epith Cells 0-2 Urine Bacteria None Seen Hyaline Casts 0-2 COVID-19 (MANISHA) COVID-19 Booster.ly 04/21/22 04/21/22 11:16 12:06 MCV MCH MCHC RDW Plt Count MPV Immature Gran % (Auto) Neut % (Auto) Lymph % (Auto) [place] % (Auto) Eos % (Auto) Baso % (Auto) Lymph # (Auto) [place] # (Auto) Eos # (Auto) Baso # (Auto) Abs Immat Gran (auto) Absolute Neuts (auto) Absolute Nucleated RBC Nucleated RBC % (auto) PT INR APTT Anion Gap Estim Creat Clear Calc Estimated GFR Random Glucose Lactic Acid Lactic Acid F/U @ 2Hr 5.0 H* Calcium Total Bilirubin Direct Bilirubin AST ALT Alkaline Phosphatase B-Natriuretic Peptide Total Protein Albumin Urine Color Urine Appearance Urine pH Ur Specific [place] Urine Protein Urine Glucose (UA) Urine Ketones Urine Blood Urine Nitrite Ur Leukocyte Esterase Urine RBC Urine WBC Ur Squamous Epith Cells Urine Bacteria Hyaline Casts COVID-19 ([facility]ISHA) Negative COVID-19 Clin Com See Note Imaging Radiologist's Impressions: Impressions Venous Duplex 04/21/22 09:22 IMPRESSION: 1. Positive deep venous thrombosis in the right peroneal vein and probable left peroneal vein as well. The remainder of the lower extremity veins are patent. 2. Moderate subcutaneous edema in the calves bilaterally. Chest X-Ray 04/21/22 11:20 IMPRESSION: Small left pleural effusion. No edema. 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 # Acute DVT bilateral peroneal veins -patient started on heparin drip in ED per protocol. Continue heparin drip -bridge to Eliquis tomorrow. Discharge on Eliquis -DVT bilateral lower extremities -Outpt heme follow up advised given bilateral DVT #Chronic lower extremity edema- likely related to chronic venous stasis -there is a new small left-sided pleural effusion. BNP is 25 minutes patient denies any LOJA or orthopnea. -recommend outpatient echocardiogram -given 80 mg IV Lasix in the ED. continue IV diuresis daily -follow BMP -recommend Jeremiah stockings #chronic lactic acidosis -Lactic acid 5.9, improved to 5.0 on repeat-no severe sepsis -likely secondary to myasthenia gravis which can cause leakage of lactate from myasthenic muscle due membrane defect -further monitoring not indicated. #.? 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 Myasthenia gravis -continue prednisone, mycophenolate and azathioprine -likely resulting in chronic lactic acidosis as above -PT consult for weakness #.? 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 Essential hypertension -amlodipine likely not responsible for leg edema. Continue amlodipine and losartan -monitor BP he has #history cardiac arrest 8 years ago -Continue rosuvastatin -patient exhibits repetitions secondary to anoxic brain injury-baseline Code status:? Do not resuscitate Diet: Diabetic diet DVT prophylaxis:? Lovenox 40 mg daily Quality Stroke Does the patient have a stroke diagnosis?: No VTE Prior VTE?: No VTE Risk Level:: Medical - moderate - high VTE Device Contraindication: Treatment Not Indicated VTE Drug Contraindication: N/A - Med Ordered
[2022-04-21 14:15] LABS: Reflex Lactate? 2 Y
[2022-04-21] MEDS: azaTHIOprine 50 MG TABLET PO ×2 (15:04→21:59)
[2022-04-21] MEDS: Loperamide HCl 2 MG CAPSULE PO (15:04)
[2022-04-21] MEDS: 0.9 % Sodium Chloride Flush 3 ML SYRINGE IVFLUSH (15:04)
[2022-04-21] MEDS: Gabapentin 300 MG CAPSULE PO (15:04)
[2022-04-21] MEDS: mycophenolate mofetiL 250 MG CAPSULE 500 MG PO (15:48)
[2022-04-21] MEDS: glipiZIDE 10 MG TABLET PO (15:48)
[2022-04-21 15:49] VITALS: BP 170/73; PULSE 107; RESP 18; TEMP 36.8; O2SAT 97
[2022-04-21 17:03] LABS: ~Lactic Acid-LAB USE ONLY 5.5 mmol/L (0.5-2.0)
[2022-04-21 17:39] LABS: PTT Heparin Drip 122.5 SEC (53-77.9)
--- NOTE | 2022-04-21 17:53 | PC.NURSE ---
PTT HD result 122.5. Drip held. Dr. Gómez aware. Stat PTT ordered.
[2022-04-21] MEDS: Insulin Lispro 100 UNIT/ML 3 ML VIAL SUBCUT ×2 (18:45→21:55)
[2022-04-21 18:48] LABS: Glucose, Whole Blood 247 mg/dL (60-115)
[2022-04-21 19:20] LABS: PTT Heparin Drip 48.9 SEC (53-77.9)
[2022-04-21 21:09] LABS: Glucose, Whole Blood 245 mg/dL (60-115)
[2022-04-21] MEDS: QUEtiapine Fumarate 25 MG TABLET PO (21:54)
[2022-04-21] MEDS: Mirtazapine 30 MG TABLET PO (21:55)
[2022-04-21] MEDS: Heparin Sodium,Porcine 5,000 UNIT/ML VIAL 4100 UNIT IVPUSH (22:01)
[2022-04-22 00:43] VITALS: BP 158/73; PULSE 91; RESP 23; O2SAT 97
[2022-04-22 04:49] LABS: Hematocrit 36.7 % (42.0-52.0); Hemoglobin 11.6 g/dl (14.0-18.0); Mean Corpuscular HGB Conc 31.6 g/dl (31.0-36.0); Mean Corpuscular Hemoglobin 28.3 pg (27.0-33.0); Mean Corpuscular Volume 89.5 fL (80.0-98.0); Mean Platelet Volume 9.7 fL (9.4-12.4); NRBC Pct Auto 0.2 /100WBC (0.0-0.2); Platelet Count 198 X10*3/uL (160-400); Red Cell Distribution Width 18.7 % (11.0-16.0); White Blood Count 9.4 X10*3/uL (4.8-10.8)
[2022-04-22 04:58] LABS: Prothrombin Time 11.1 SEC (10.0-13.1)
[2022-04-22 05:19] LABS: PTT Heparin Drip 129.2 SEC (53-77.9)
[2022-04-22 05:22] LABS: Anion Gap 23 (12-20); Blood Urea Nitrogen 22 mg/dL (9-16); Calcium 8.8 mg/dL (8.4-10.2); Carbon Dioxide 22 mmol/L (22-29); Chloride 102 mmol/L (96-108); Creatinine Clr Calc Pharmacy 81.9; Estimated Glomerular Filt Rate > 60; Glucose Random 117 mg/dL (60-115); Potassium 4.2 mmol/L (3.3-5.1); Sodium 143 mmol/L (135-145)
[2022-04-22 05:50] LABS: PTT Heparin Drip 78.8 SEC (53-77.9)
[2022-04-22 07:21] LABS: Glucose, Whole Blood 93 mg/dL (60-115)
[2022-04-22] MEDS: Valsartan 80 MG TABLET PO (07:56)
[2022-04-22] MEDS: mycophenolate mofetiL 250 MG CAPSULE 500 MG PO (07:56)
[2022-04-22] MEDS: Atorvastatin Calcium 80 MG TABLET PO (07:56)
[2022-04-22] MEDS: glipiZIDE 10 MG TABLET PO (07:56)
[2022-04-22] MEDS: Loperamide HCl 2 MG CAPSULE PO (07:57)
[2022-04-22] MEDS: pyRIDostigmine bromide 60 MG TABLET PO (07:57)
[2022-04-22] MEDS: predniSONE 5 MG TABLET 25 MG PO (07:57)
[2022-04-22] MEDS: Gabapentin 300 MG CAPSULE PO (07:57)
[2022-04-22] MEDS: amLODIPine Besylate 5 MG TABLET PO (07:57)
[2022-04-22] MEDS: Furosemide 100 MG/10 ML VIAL 80 MG IVPUSH (07:58)
[2022-04-22] MEDS: Apixaban 5 MG TABLET 10 MG PO (09:18)
[2022-04-22] MEDS: azaTHIOprine 50 MG TABLET PO (09:18)
--- NOTE | 2022-04-22 09:36 | P.DS_ITS ---
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 The patient knows that have been puddles of fluid around his legs when sitting.? He denies any history of fevers, chills, abdominal pain, nausea, vomiting, shortness of breath, dyspnea on exertion, orthopnea, or chest pain.? Hematology study show stable normocytic anemia.? Renal function and electrolyte levels are stable.? Patient appears have a chronic lactic acidosis improved from baseline today at 5.9 initially and 5.0 on repeat.? Baseline transaminitis AST 46, ALT 47. BNP 25. CXR shows new small left-sided pleural effusion.? No edema.? Venous duplex the bilateral lower extremities is positive for DVT right peroneal vein and probable left peroneal vein as well. Pt started on heparin drip per protocol in the ED. patient also given 80 mg furosemide. Hospital Course: Patient was started on IV heparin drip and observed overnight. He tolerated it without issues and his cbc remained stable. He has been transitioned to oral ELiquis 10mg bid x 7 days, followed by 5mg bid thereafter. Given the b/l nature of his DVT -- will refer to heme/onc. Eliquis dosing was discussed with the patient and subsequently both his and daughter via telephone. Per family, he is active with [facility] and can resume services upon d/c. Time Spent with Patient Time attestation: Total time spent providing and/or coordinating discharge services: Discharge coordination time: Less than 30 minutes Quality: Safe Use of Opioids Does Pt have an Active Cancer Diagnosis on the Problem List?: No Quality: Stroke Does the patient have a stroke diagnosis?: No Physical Exam Vital Signs: Vital Signs: Last Vital Signs Temp 98.2 F 04/21/22 15:49 Pulse 91 04/22/22 00:43 Resp 23 H 04/22/22 00:43 BP 158/73 H 04/22/22 00:43 Pulse Ox 97 04/22/22 00:43 O2 Del Method 04/22/22 00:43 BMI result Body Mass Index 35.2 Const: Other: General - no acute distress, appears comfortable Cardiovascular - regular rate and rhythm, S1-S2 Lungs - normal respiratory effort, clear to auscultation bilaterally, no wheezing Abdomen - soft, nontender, no rebound or guarding Extremities - b/l LE chronic venous stasis changes Neuro - awake and alert DS: Data Data Completed and Pending Labs on day of discharge: Laboratory Results - last 24 hr 04/21/22 04/21/22 04/21/22 09:50 11:16 12:06 WBC RBC Hgb Hct MCV MCH MCHC RDW Plt Count MPV Absolute Nucleated RBC Nucleated RBC % (auto) PT INR aPTT Heparin Protocol Sodium Potassium Chloride Carbon Dioxide Anion Gap BUN Creatinine Estim Creat Clear Calc Estimated GFR POC Glucose Random Glucose Lactic Acid F/U @ 2Hr 5.0 H* Lactic Acid F/U @ 4Hr Calcium Urine Color Dark Yellow Urine Appearance Clear Urine pH 5.5 Ur Specific [place] >= 1.030 H Urine Protein Trace Urine Glucose (UA) >=1000 H Urine Ketones Trace Urine Blood Negative Urine Nitrite Negative Ur Leukocyte Esterase Negative Urine RBC 0-2 Urine WBC 0-5 Ur Squamous Epith Cells 0-2 Urine Bacteria None Seen Hyaline Casts 0-2 COVID-19 ([facility]) Negative COVID-19 Clin Com See Note 04/21/22 04/21/22 04/21/22 16:44 16:44 18:38 WBC RBC Hgb Hct MCV MCH MCHC RDW Plt Count MPV Absolute Nucleated RBC Nucleated RBC % (auto) PT INR aPTT Heparin Protocol 122.5 H* Sodium Potassium Chloride Carbon Dioxide Anion Gap BUN Creatinine Estim Creat Clear Calc Estimated GFR POC Glucose 247 H Random Glucose Lactic Acid F/U @ 2Hr Lactic Acid F/U @ 4Hr 5.5 H* Calcium Urine Color Urine Appearance Urine pH Ur Specific [place] Urine Protein Urine Glucose (UA) Urine Ketones Urine Blood Urine Nitrite Ur Leukocyte Esterase Urine RBC Urine WBC Ur Squamous Epith Cells Urine Bacteria Hyaline Casts COVID-19 ([facility]IS[facility]) COVID-19 Clin Com 04/21/22 04/21/22 04/22/22 18:54 21:06 04:41 WBC 9.4 RBC 4.10 L Hgb 11.6 L Hct 36.7 L MCV 89.5 MCH 28.3 MCHC 31.6 RDW 18.7 H Plt Count 198 MPV 9.7 Absolute Nucleated RBC 0.020 H Nucleated RBC % (auto) 0.2 PT INR aPTT Heparin Protocol 48.9 L D Sodium Potassium Chloride Carbon Dioxide Anion Gap BUN Creatinine Estim Creat Clear Calc Estimated GFR POC Glucose 245 H Random Glucose Lactic Acid F/U @ 2Hr Lactic Acid F/U @ 4Hr Calcium Urine Color Urine Appearance Urine pH Ur Specific [place] Urine Protein Urine Glucose (UA) Urine Ketones Urine Blood Urine Nitrite Ur Leukocyte Esterase Urine RBC Urine WBC Ur Squamous Epith Cells Urine Bacteria Hyaline Casts COVID-19 ([facility]ISHA) COVID-19 ArchiveSocial Com 04/22/22 04/22/22 04/22/22 04:41 04:41 04:41 WBC RBC Hgb Hct MCV MCH MCHC RDW Plt Count MPV Absolute Nucleated RBC Nucleated RBC % (auto) PT 11.1 INR 1.0 aPTT Heparin Protocol 129.2 H* D Sodium 143 Potassium 4.2 Chloride 102 Carbon Dioxide 22 Anion Gap 23 H BUN 22 H Creatinine 0.92 Estim Creat Clear Calc 81.9 Estimated GFR > 60 POC Glucose Random Glucose 117 H Lactic Acid F/U @ 2Hr Lactic Acid F/U @ 4Hr Calcium 8.8 Urine Color Urine Appearance Urine pH Ur Specific [place] Urine Protein Urine Glucose (UA) Urine Ketones Urine Blood Urine Nitrite Ur Leukocyte Esterase Urine RBC Urine WBC Ur Squamous Epith Cells Urine Bacteria Hyaline Casts COVID-19 (MANISHA) COVID-19 Keen Impressions 04/22/22 04/22/22 05:35 07:18 WBC RBC Hgb Hct MCV MCH MCHC RDW Plt Count MPV Absolute Nucleated RBC Nucleated RBC % (auto) PT INR aPTT Heparin Protocol 78.8 H D Sodium Potassium Chloride Carbon Dioxide Anion Gap BUN Creatinine Estim Creat Clear Calc Estimated GFR POC Glucose 93 Random Glucose Lactic Acid F/U @ 2Hr Lactic Acid F/U @ 4Hr Calcium Urine Color Urine Appearance Urine pH Ur Specific [place] Urine Protein Urine Glucose (UA) Urine Ketones Urine Blood Urine Nitrite Ur Leukocyte Esterase Urine RBC Urine WBC Ur Squamous Epith Cells Urine Bacteria Hyaline Casts COVID-19 (MANISHA) COVID-19 Clin Seer Discharge Plan Discharge Patient Disposition: Home Health Service Referrals: [facility] [Outside] - 1 Week Justino Lara MD [Primary Care Provider] - 1 Week Anjelica Salas MD [Physician] - 1 Week Discharge Medications: New Eliquis 5 mg tablet 5 mg PO BID Qty: 90 0RF Rx Instructions: Take 10mg(2 tabs) twice daily until 04/28; starting 04/29 take 5mg(1 tab) twice daily Continued rosuvastatin 20 mg tablet 20 mg PO DAILY 90 Days Qty: 90 0RF quetiapine 25 mg tablet 1 tab PO BEDTIME valsartan 80 mg tablet 1 tab PO DAILY azathioprine 50 mg tablet 50 mg PO TID pyridostigmine bromide 60 mg tablet 1 tab PO QID loperamide 2 mg capsule 1 tab PO BID@0800,1600 mycophenolate mofetil 500 mg tablet 1 tab PO BID@0800,1600 gabapentin 300 mg capsule 1 cap PO BID@0800,1600 clotrimazole 1 % cream 1 appl topical BID PRN (Reason: TOE, RASH) prednisone 10 mg tablet 25 mg PO DAILY furosemide 40 mg tablet 80 mg PO DAILY triamcinolone acetonide 0.1 % cream 1 appl topical BID PRN (Reason: RASH, FOOT) mirtazapine 30 mg tablet 1 tab PO BEDTIME albuterol sulfate [Ventolin HFA] 90 mcg/actuation HFA aerosol inhaler 2 puff inhalation Q4H PRN (Reason: Wheezing) amlodipine 5 mg Tablet 5 mg PO DAILY Qty: 30 0RF Protocol: Hold for SBP< HOLD for SBP < : 90 glipizide 5 mg tablet 10 mg PO BID@0800,1600 Discharge Orders: Discharge Order (Routine); Ordered 04/22/22 Ordered By: Wale Pemberton Diet: Advance to usual diet Activity on Discharge: As tolerated Stand Alone Forms: Patient Portal Discharge page Print Language: Danish Care Plan Goals: To stay healthy and out of the hospital. Health Concerns: Bilateral DVT Plan of Treatment: Take Eliquis 10mg twice daily for 7 days (until 04/28). You have already taken your morning dose for today. Starting 04/29, take 5mg twice daily. Follow up with hematology. Assessment: see d/c summary Discharge Date/Time: 04/22/22 10:50
--- NOTE | 2022-04-22 10:33 | PC.NURSE ---
pt sitting up, awaiting discharge. ivs removed. awaiting for transport home. sts she is on her way.
--- NOTE | 2022-04-22 10:47 | MHC.CM.PN ---
Met with patient and in regards to discharge planning. Patient lives with , and is active with [facility]. PCP verified. Copy of HCP verified to be on file. Patient received 3 Pfizer vaccines. Obs notice explained and signed. Sheryl will transport patient home. Patient started on Eliquis due to having a DVT. Eliquis prescription card given and explained. Continue to monitor for d/c needs.
== END 2022-04-22 10:50 | disposition home health service (06) ==
LOC: HO.ED 10:56 → HO.EDOVER 12:34
PROVIDERS: Internal Medicine; Physician Assistant Medical; Admitting Provider Physician Assistant; Emergency Provider Emergency Medicine Emergency Medical Services; PCP Internal Medicine; Visit Provider Family Medicine
DX: I82.451 Acute embolism and thrombosis of right peroneal vein (principal); R60.0 Localized edema; R06.02 Shortness of breath; E11.9 Type 2 diabetes mellitus without complications; Z20.822 Contact with and (suspected) exposure to COVID-19; Z87.820 Personal history of traumatic brain injury; Z79.899 Other long term (current) drug therapy
CPT/HCPCS: 36415; 71045; 80048; 80076; 81001; 81003; 82947; 83605; 83880; 85025; 85027; 85610; 85730; 87040; 87635; 93005; 93970; 96374; 96375; 96376; 99218; 99285; J1940

== ENCOUNTER 2022-05-08 13:38 | Outpatient (RCR) | payer MEDICARE, MEDICAID, SELFPAY ==
--- NOTE | 2022-05-08 13:41 | HO.HEMONCTE1 ---
[facility] Telehealth - Telehealth Location of Provider rendering services: Office Location of Patient: Home Patient Identification confirmed using: Name, : Yes Telehealth Method: Telephone Patient verbally consented to treatment: Yes Patient verbally consented to billing insurance company: Yes Patient informed of any privacy concerns related to visit: Yes Medical Summary - Medical Summary Date of Service: 05/08/22 Chief complaint: DVT Medical Summary: Diagnosis: Bilateral lower extremity DVT April 2022 Interval History Interval history: Mr. Donato is a pleasant 71-year-old male with history of traumatic brain injury, coronary artery disease, type 2 diabetes mellitus, myasthenia gravis, hypertension, chronic bilateral lower extremity venous stasis/edema who was diagnosed with DVT recently. He presented with worsening swelling of his legs, Dopplers on 04/21/2022 revealed DVT in the right peroneal vein as well as left peroneal vein. He was started on Eliquis. According to patient's and daughter, leg swelling is somewhat better. He is quite sedentary. Daughter is not sure but he may have had a blood clot when he was hospitalized in 2019 as well. Patient has no complaints such as bruising or mucosal bleeding. No pleuritic chest pain, cough or shortness of breath. Review of Systems - Constitutional Reports as per HPI, Reports no additional constitutional complaints - Cardiovascular Reports no additional cardiovascular complaints - Respiratory Reports no additional respiratory complaints Home Medications and Allergies Home Medications Medication Instructions Recorded Confirmed Type azathioprine 50 mg tablet (Imuran) 50 mg PO TID 06/02/20 05/08/22 History pyridostigmine bromide 60 mg tablet 1 tab PO QID 06/02/20 05/08/22 History quetiapine 25 mg tablet 1 tab PO BEDTIME 06/02/20 05/08/22 History valsartan 80 mg tablet 1 tab PO DAILY 06/02/20 05/08/22 History clotrimazole 1 % topical cream 1 appl topical BID PRN TOE, RASH 08/24/21 05/08/22 History gabapentin 300 mg capsule 1 cap PO BID@0800,1600 08/24/21 05/08/22 History loperamide 2 mg capsule 1 tab PO BID@0800,1600 08/24/21 05/08/22 History mycophenolate mofetil 500 mg 1 tab PO BID@0800,1600 08/24/21 05/08/22 History tablet (CellCept) prednisone 10 mg tablet 25 mg PO DAILY 11/30/21 05/08/22 History albuterol sulfate 90 mcg/actuation 2 puff inhalation Q4H PRN Wheezing 01/23/22 05/08/22 History aerosol inhaler (Ventolin HFA) furosemide 40 mg tablet 80 mg PO DAILY 01/23/22 05/08/22 History mirtazapine 30 mg tablet 1 tab PO BEDTIME 01/23/22 05/08/22 History triamcinolone acetonide 0.1 % 1 appl topical BID PRN RASH, FOOT 01/23/22 05/08/22 History topical cream glipizide 5 mg tablet 10 mg PO BID@0800,1600 04/21/22 05/08/22 History Allergies Allergy/AdvReac Type Severity Reaction Status Date / Time No Known Allergies Allergy Verified 09/02/21 14:18 [No Known Allergies*] Data - Labs Labs: Laboratory Tests 04/22/22 04:41 WBC 9.4 RBC 4.10 L Hgb 11.6 L Hct 36.7 L Plt Count 198 Assessment and Plan Patient Active problem list reviewed?: Yes (1) DVT (deep venous thrombosis) Status: Acute Assessment and plan: 1. This is a 71-year-old male with myasthenia gravis and multiple other medical problems and chronic immobility presenting with bilateral lower extremity DVT diagnosed in April 2022. Both left and right peroneal veins showed occlusive DVT which were spontaneous, patient has been started on Eliquis, he is now on 5 mg b.i.d.. He is tolerating it well. His family thinks he may have had a previous clot in 2019 although I could not find any documentation for this. Given the spontaneous nature of the blood clot and his chronic immobility, patient would be candidate for long-term anticoagulation. I discussed with the family about monitoring himself for any signs of bleeding. Labs will be checked in a few weeks. All of this was explained to patient and his family and they agreed with above recommendations. Follow-up in 4-6 weeks. - Time Spent With Patient Time Spent with Patient (in minutes): 18
--- NOTE | 2022-05-08 13:42 | MHC.HEMONCMA ---
patient had new consult televisit today for DVT, all notes scanned into chart, patient is with (Sheryl) and daughter (lin), followup to be determined.
--- NOTE | 2022-05-08 13:54 | MHC.HEMONCMA ---
patient is to followup in 4/6 weeks with labs.
== END 2022-07-21 | disposition home or self-care (01) ==
LOC: HO.ONC 13:38
PROVIDERS: Visit Provider Internal Medicine
DX: I82.453 Acute embolism and thrombosis of peroneal vein, bilateral (principal); G70.00 Myasthenia gravis without (acute) exacerbation; Z79.01 Long term (current) use of anticoagulants
CPT/HCPCS: 99213; Q3014

== ENCOUNTER 2022-05-19 16:30 | Inpatient (IN) | payer MEDICARE, MEDICAID, SELFPAY ==
[2022-05-19] VITALS (11 sets, daily range): BP systolic 76–148; BP diastolic 26–90; PULSE 65–88; RESP 14–23; TEMP 36.5–36.8; O2SAT 95–99; BMI 61.1; BMI 33.3
--- NOTE | ~2022-05-19 | CT_ITS ---
EXAMINATION: CT CHEST WITHOUT CONTRAST CT ABDOMEN AND PELVIS WITHOUT CONTRAST CLINICAL INFORMATION: Shortness of breath. Acute kidney insufficiency. COMPARISON: CT abdomen and pelvis dated 03/26/[address] chest dated 11/30/2021. TECHNIQUE: Multidetector volumetric imaging was performed from the thoracic inlet through the pubic symphysis without contrast material. Sagittal and coronal images were reformatted. This CT examination was performed using dose optimization techniques as appropriate, variously including the following: *Automated exposure control *Adjustment of mA and/or kV according to patient size (this includes techniques or standardized protocols for targeted exams where dose is matched to indication/reason for exam; i.e. extremities or head) *Use of iterative reconstruction technique DOSE: 1116 mGy-cm FINDINGS: -CHEST- LUNG: No airspace consolidation. Central airways are clear. Peripheral interlobular septal thickening is evident bilaterally, more notably in the lung bases, left greater than right, most consistent with interstitial fibrotic change. Moderate upper lobe predominant centrilobular emphysema. No bronchiectasis. No significant honeycombing. Mild paraseptal emphysema. No suspicious pulmonary nodules are identified. MEDIASTINUM: Heart is normal in size. Calcifications are present in the coronary arteries. Calcific atherosclerosis is noted in the thoracic aorta. No mediastinal or hilar adenopathy. Thyroid gland is normal. PERICARDIUM/PLEURA: No significant effusion. No pleural mass or thickening. CHEST WALL/AXILLA: Unremarkable. -ABDOMEN/PELVIS- LIVER, GALLBLADDER, BILIARY TREE: Relative hypoattenuation of the hepatic parenchyma is consistent with steatosis. No focal hepatic lesions are identified. No appreciable biliary ductal dilatation. Dependent cholelithiasis in the gallbladder. No gallbladder wall thickening or surrounding inflammatory changes to indicate cholecystitis. Common bile duct is normal in caliber. PANCREAS: Normal; no mass or surrounding fluid. SPLEEN: Normal size. No focal lesion. ADRENAL GLANDS: Normal; no mass. KIDNEYS AND URETERS: The kidneys are normal in size, shape, and attenuation. No hydronephrosis, hydroureter, or calculi seen. No perinephric stranding. BLADDER: Unremarkable. GASTROINTESTINAL TRACT: Stomach, small bowel, and colon are normal in caliber. No bowel wall thickening or surrounding inflammatory changes. Appendix is not seen, there are no secondary findings of acute appendicitis are identified. No intraperitoneal free fluid or free air. Marked sigmoid diverticulosis. A curvilinear band of scar-like tissue connects to regions of diverticular disease at the sigmoid colon and is unchanged as compared to prior. ABDOMINAL WALL: No significant hernia is appreciated. VASCULATURE: Marked calcific atherosclerosis in the abdominal aorta and its branch vessels. Mild infrarenal abdominal aortic aneurysm measures 2.5 cm in diameter, unchanged as compared to prior. LYMPH NODES: No lymphadenopathy. . PELVIC VISCERA: The prostate and seminal vesicles are unremarkable. OSSEUS STRUCTURES: No acute osseous abnormalities. There is degenerative ankylosis of multiple levels in the thoracolumbar spine with endplate osteophytes. [id number] degenerative spondylosis is more pronounced in the lower lumbar spine at L4-L5. 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 CT/CT abdomen pelvis wo IV con IMPRESSION: 1. No acute abnormalities are identified in the chest, abdomen, and pelvis. No evidence of obstructive uropathy. No findings to indicate a cause of acute renal insufficiency. 2. Moderate pulmonary emphysema with peripheral interstitial fibrotic changes. 3. Hepatic steatosis. 4. Cholelithiasis without evidence of acute cholecystitis. 5. Marked sigmoid diverticulosis without evidence of acute diverticulitis.
--- NOTE | ~2022-05-19 | XR_ITS ---
EXAMINATION: XR CHEST CLINICAL INFORMATION: Weakness/CHF COMPARISON: Chest radiograph 04/21/2022, CT abdomen pelvis 03/26/2022 TECHNIQUE: Frontal view of the chest was obtained. FINDINGS: Again seen is some chronic blunting of the left costophrenic angle and basilar atelectasis. Heart size upper limits of normal. A tiny right effusion could be present. No interstitial edema is seen. No upper zone redistribution is present to suggest elevated left ventricular end-diastolic pressure. XR/XR chest 1V IMPRESSION: No acute intrathoracic disease or convincing evidence of CHF. Chronic blunting of the left costophrenic angle.
--- NOTE | 2022-05-19 17:09 | ED_ITS ---
HPI - General Adult General Chief complaint: General Medical Stated complaint: Failure To Thrive,Right leg pain with swelling Time Seen by Provider: 05/19/22 17:01 Source: patient Mode of arrival: EMS Limitations: no limitations History of Present Illness HPI narrative: Patient is 72 years of history of TBI status post cardiac arrest with ROSC 8 years ago, type 2 diabetes, myasthenia gravis, hypertension, hyperlipidemia, both chronic bilateral lower extremity edema secondary to venous stasis comes here for poor oral intake weakness also noticed to have increased redness and pain in the right lower extremity patient has bilateral lower extremity DVT on Eliquis. No fever no chills Related Data Home Medications Medication Instructions Recorded Confirmed azathioprine 50 mg tablet (Imuran) 50 mg PO TID 06/02/20 05/08/22 pyridostigmine bromide 60 mg tablet 1 tab PO QID 06/02/20 05/08/22 quetiapine 25 mg tablet 1 tab PO BEDTIME 06/02/20 05/08/22 valsartan 80 mg tablet 1 tab PO DAILY 06/02/20 05/08/22 clotrimazole 1 % topical cream 1 appl topical BID PRN TOE, RASH 08/24/21 05/08/22 gabapentin 300 mg capsule 1 cap PO BID@0800,1600 08/24/21 05/08/22 loperamide 2 mg capsule 1 tab PO BID@0800,1600 08/24/21 05/08/22 mycophenolate mofetil 500 mg 1 tab PO BID@0800,1600 08/24/21 05/08/22 tablet (CellCept) prednisone 10 mg tablet 25 mg PO DAILY 11/30/21 05/08/22 albuterol sulfate 90 mcg/actuation 2 puff inhalation Q4H PRN Wheezing 01/23/22 05/08/22 aerosol inhaler (Ventolin HFA) furosemide 40 mg tablet 80 mg PO DAILY 01/23/22 05/08/22 mirtazapine 30 mg tablet 1 tab PO BEDTIME 01/23/22 05/08/22 triamcinolone acetonide 0.1 % 1 appl topical BID PRN RASH, FOOT 01/23/22 05/08/22 topical cream glipizide 5 mg tablet 10 mg PO BID@0800,1600 04/21/22 05/08/22 Previous Rx's Medication Instructions Recorded amlodipine 5 mg tablet 5 mg PO DAILY #30 tabs 03/29/22 apixaban 5 mg tablet (Eliquis) 5 mg PO BID #90 tabs 04/22/22 rosuvastatin 20 mg tablet 20 mg PO DAILY 90 days #90 tabs 05/15/22 Allergies Allergy/AdvReac Type Severity Reaction Status Date / Time No Known Allergies Allergy Verified 09/02/21 14:18 [No Known Allergies*] Review of Systems Review of Systems: Yes all other systems are reviewed and are negative FOR[facility]LY [facility] Past Medical History Medical History Aspiration pneumonia CHF (congestive heart failure) Diabetes Diabetes mellitus, type 2 DVT (deep venous thrombosis) Edema Erythema of lower extremity Hypercholesteremia Hypertension Intractable nausea and vomiting Leg edema Myasthenia gravis Myasthenia gravis Myasthenia gravis Myocardial infarction Obesity TBI (traumatic brain injury) Family History Family History Mother No problems noted. Father No problems noted. Other No family history of coronary artery disease Social History Social History Household Members: Significant Other and Family Housing: House Do you presently have visiting nurse or other home services: Yes Unable to assess alcohol history related to: Unknown Alcohol intake: unknown Patient Tobacco Use Status: Former Tobacco user Tobacco use type: Cigarette Smoked in Last 30 Days: No Second Hand Smoke Exposure: Yes Use of substances other than those prescribed or required for medical reasons: No Substance Use Type: Former Substance User Advance Directives: Yes Advance Directives on File: Yes Advance Directives Date on File: 05/05/21 service: No Current occupational status: retired Physical Exam ED Vital Signs: Vital Signs - 24 hr 05/19/22 16:52 05/19/22 19:34 05/19/22 20:51 Temperature 97.7 F 98.1 F 98.1 F Pulse Rate 80 72 88 Respiratory Rate 18 20 23 H Blood Pressure 99/45 L 109/51 L 133/44 L Pulse Oximetry 99 96 95 Oxygen Delivery Method Room Air Room Air Room Air BMI result Body Mass Index 61.1 Appearance: Alert. Oriented X3. No acute distress. Eyes: PERRLA, No Nystagmus ENT: Pharynx normal. Oral Mucosa moist Neck: Normal inspection. Neck supple. CVS: Normal heart rate and rhythm. Pulses normal. Respiratory: No respiratory distress. Equal air entry bilateral, no wheezing/rales/rhonchi Abdomen: Soft and nontender. Bowel sounds are present, no mass palpable, no CVA tenderness Skin: Skin warm and dry. Normal skin color. Normal skin turgor. Extremities: 1 + lower extremity edema. No calf tenderness dm changes of skin bilateral lower extremity right more than left with open wounds, no pus discharge Neuro: Oriented X 3. No motor deficit. Medications Administered Generic Name Dose Route Start Last Admin Trade Name Freq PRN Reason Stop Dose Admin Lactated Ringer's 1,000 mls @ 100 mls/hr 05/19/22 21:15 05/19/22 22:45 Lr IVCONT 100 mls/hr .Q10H PELON Administration Sodium Chloride 3 ml 05/20/22 00:00 05/19/22 23:11 0.9 % Sodium Chloride Flush 3 Ml Syringe IVFLUSH 3 ml QSHIFT PELON Administration Discontinued Medications Generic Name Dose Route Start Last Admin Trade Name Freq PRN Reason Stop Dose Admin Sodium Chloride 1,000 mls @ 999 mls/hr 05/19/22 17:09 05/19/22 20:12 Ns IV 05/19/22 18:09 Infused .Q1H1M ONE Infusion Ceftriaxone Sodium 1 gm/ 50 mls @ 100 mls/hr 05/19/22 17:10 05/19/22 19:51 Sodium Chloride IV 05/19/22 17:39 Infused ONCE ONE Infusion Vancomycin HCl 1,000 mg/ 270 mls @ 270 mls/hr 05/19/22 17:27 05/19/22 21:22 Sodium Chloride IV 05/19/22 18:26 Infused ONCE ONE Infusion Sodium Chloride 1,000 mls @ 999 mls/hr 05/19/22 19:15 05/19/22 21:23 Ns IV 05/19/22 20:15 Infused .Q1H1M ONE Infusion Sodium Chloride 1,000 mls @ 999 mls/hr 05/19/22 21:33 05/19/22 23:34 Ns IV 05/19/22 22:33 Infused .Q1H1M ONE Titration Midodrine 10 mg 05/19/22 23:18 05/19/22 23:31 Midodrine Hcl 10 Mg Tablet PO 05/19/22 23:19 10 mg ONCE ONE Administration Medical Decision Making MDM Narrative Medical decision making narrative: 2100 Patient ideal body weight 66 kg was given IV fluids more than 30 cc/kilogram IV antibiotics vancomycin and Rocephin were given for cellulitis right lower extremity with lactic acidosis and acute renal failure Lab Data Lab results reviewed: Yes I reviewed the patient's lab results. Result diagrams: 05/19/22 18:32 05/19/22 18:32 Labs: Lab Results 05/19/22 05/19/22 05/19/22 Range/Units 18:17 18:32 18:32 WBC 13.0 H (4.8-10.8) X10*3/uL RBC 3.31 L (4.60-5.80) X10*6/uL Hgb 9.4 L (14.0-18.0) g/dl Hct 29.3 L D (42.0-52.0) % MCV 88.5 (80.0-98.0) fL MCH 28.4 (27.0-33.0) pg MCHC 32.1 (31.0-36.0) g/dl RDW 19.3 H (11.0-16.0) % Plt Count 273 D (160-400) X10*3/uL MPV 9.5 (9.4-12.4) fL Immature Gran % (Auto) 1.0 H (0.0-0.4) % Neut % (Auto) 91.7 H (45-73) % Lymph % (Auto) 3.3 L (20-40) % [place] % (Auto) 3.8 (2-11) % Eos % (Auto) 0.0 (0-4) % Baso % (Auto) 0.2 (0-2) % Lymph # (Auto) 0.4 L (1.2-4.9) X10*3/uL [place] # (Auto) 0.5 (0.1-1.2) X10*3/uL Eos # (Auto) 0.0 (0.0-0.4) X10*3/uL Baso # (Auto) 0.0 (0.0-0.2) X10*3/uL Abs Immat Gran (auto) 0.13 H (0.00-0.03) X10*3/uL Absolute Neuts (auto) 11.9 H (2.0-8.3) x10*3/uL Absolute Nucleated RBC 0.000 (0.0-0.012) X10*3/uL Nucleated RBC % (auto) 0.0 (0.0-0.2) /100WBC Smear Tech's Comments VERIFIED PT 15.4 H (10.0-13.1) SEC INR 1.3 H (0.9-1.1) Sodium (135-145) mmol/L Potassium (3.3-5.1) mmol/L Chloride (96-108) mmol/L Carbon Dioxide (22-29) mmol/L Anion Gap (12-20) BUN (9-16) mg/dL Creatinine (0.5-1.4) mg/dL Estim Creat Clear Calc Estimated GFR Random Glucose (60-115) mg/dL Lactic Acid (0.5-2.0) mmol/L Calcium (8.4-10.2) mg/dL Magnesium (1.6-2.6) mg/dL Total Bilirubin (0.0-1.0) mg/dL AST (5-37) U/L ALT (0-40) U/L Alkaline Phosphatase (39-117) U/L Total Protein (6.5-8.0) g/dL Albumin (3.5-5.0) g/dL COVID-19 (MANISHA) Negative (Negative) COVID-19 Clin Com See Note 05/19/22 05/19/22 Range/Units 18:32 18:32 WBC (4.8-10.8) X10*3/uL RBC (4.60-5.80) X10*6/uL Hgb (14.0-18.0) g/dl Hct (42.0-52.0) % MCV (80.0-98.0) fL MCH (27.0-33.0) pg MCHC (31.0-36.0) g/dl RDW (11.0-16.0) % Plt Count (160-400) X10*3/uL MPV (9.4-12.4) fL Immature Gran % (Auto) (0.0-0.4) % Neut % (Auto) (45-73) % Lymph % (Auto) (20-40) % [place] % (Auto) (2-11) % Eos % (Auto) (0-4) % Baso % (Auto) (0-2) % Lymph # (Auto) (1.2-4.9) X10*3/uL [place] # (Auto) (0.1-1.2) X10*3/uL Eos # (Auto) (0.0-0.4) X10*3/uL Baso # (Auto) (0.0-0.2) X10*3/uL Abs Immat Gran (auto) (0.00-0.03) X10*3/uL Absolute Neuts (auto) (2.0-8.3) x10*3/uL Absolute Nucleated RBC (0.0-0.012) X10*3/uL Nucleated RBC % (auto) (0.0-0.2) /100WBC Smear Tech's Comments PT (10.0-13.1) SEC INR (0.9-1.1) Sodium 139 (135-145) mmol/L Potassium 4.0 (3.3-5.1) mmol/L Chloride 99 (96-108) mmol/L Carbon Dioxide 21 L (22-29) mmol/L Anion Gap 23 H (12-20) BUN 54 H (9-16) mg/dL Creatinine 3.57 H (0.5-1.4) mg/dL Estim Creat Clear Calc 28.3 Estimated GFR 17 Random Glucose 180 H (60-115) mg/dL Lactic Acid 3.5 H* (0.5-2.0) mmol/L Calcium 8.5 (8.4-10.2) mg/dL Magnesium 2.2 (1.6-2.6) mg/dL Total Bilirubin 0.5 (0.0-1.0) mg/dL AST 47 H (5-37) U/L ALT 31 (0-40) U/L Alkaline Phosphatase 44 (39-117) U/L Total Protein 5.9 L (6.5-8.0) g/dL Albumin 3.3 L (3.5-5.0) g/dL COVID-19 ([facility]HA) (Negative) COVID-19 Clin Com Discharge Plan Discharge Clinical Impression: Cellulitis, Lactic acidosis, KIMBERLEY (acute kidney injury) Patient Disposition: Admitted As Inpatient
--- NOTE | 2022-05-19 17:11 | ECG_ITS ---
Test Reason : EDEMA Blood Pressure : / mmHG Vent. Rate : 079 BPM Atrial Rate : 079 BPM P-R Int : 136 ms QRS Dur : 090 ms QT Int : 402 ms P-R-T Axes : 036 -18 026 degrees QTc Int : 460 ms Normal sinus rhythm Low voltage QRS Intra-ventricular conduction delay Borderline ECG When compared with ECG of 21-APR-2022 08:51, No significant change was found Referred By: Bubba Bowling Electronically Signed By:JENIFFER CHUNG MD
--- OUTSIDE RECORDS SUMMARY | 2022-05-19 17:17 | XMS_ITS ---
:1950 Author Care Team Providers Name Role Phone MAURI RADER ([facility]) OTHER [phone] Allergies Code Code System Name Reaction Severity Status Onset NKDA ? Medications Notes: Med list reviewed, may not be u p to date, see MAR Problems Name Status Onset Date Source ? Diabetes Mellitus Active 11/11/2019 ? Hyperlipidemia Active 11/11/2019 ? Delirium Active 11/11/2019 ? Myasthenia Gravis Active 11/11/2019 ? Essential Hypertension Active 11/11/2019 ? Paroxysmal Atrial Fibrillation Active 11/11/2019 ? Acute Hypoxemic Respiratory Failure Active 11/11/2019 ? Thrombosis of Cephalic Vein Active 11/11/2019 ? Heart Failure with Reduced Ejection Fraction Active 03/2020 ? Alkaline Phosphatase Raised Active 11/24/2019 ? Procedures None recorded. Results Lab Results None recorded. Past Encounters None recorded. Social History Tobacco Smoking Status Former Smoker Notes: Quit >30 years ago Vaccine List None recorded. Plan of Care Reminders Provider Appointments None recorded. ? ? Lab None recorded. ? ? Referral None recorded. ? ? Procedures None recorded. ? ? Surgeries None recorded. ? ? Imaging None recorded. ? ? Vitals 12/05/2019 02:46PM Routine Rounding Visit Blood Pressure 110/56 mm[Hg] 11/30/2019 12:37PM Acute Rounding Visit Blood Pressure 110/84 mm[Hg] 11/24/2019 08:58AM Acute Rounding Visit Blood Pressure 142/64 mm[Hg] 11/21/2019 11:15AM Acute Rounding Visit Weight Blood Pressure 157.2 lbs 162/70 mm[Hg] 11/13/2019 10:34AM Admitting H&P Blood Pressure 136/84 mm[Hg] 11/11/2019 09:11AM Initial Intake Note Blood Pressure 172/80 mm[Hg]
--- OUTSIDE RECORDS SUMMARY | 2022-05-19 17:17 | XMS_ITS | Continuity of Care Document ---
:1950 Author Organization [facility] Address [address] [place] [id number]- Care Team Providers Name Role Phone Justino Lara MD Primary Care Physician [phone] Encounter [facility] [place](s[place] 10/29/19 - 11/10/[address] [address]- [facility] Discharge Disposition: A-Transfer SNF Attending Physician: Roberta Morgan MD Admitting Physician: Lamont Walter MD Referring Physician: Lamont Walter MD Allergies, Adverse Reactions, Alerts No Known Medication Allergies Medications amLODIPine 10 mg oral tablet 1 tablet = 10 mg, By Mouth, Daily, # 30 tablet, 0 Refills, Maintenance, 10/29/19 8:48:00 EDT, Tablet Start Date: 10/29/19 Status: Orderedapixaban = 10 mg, By Mouth, 2 times a day, 0 Refills, Maintenance, 11/10/19 12:11:00 EDT, Tablet Start Date: 11/10/19 Status: Orderedapixaban = 5 mg, By Mouth, 2 times a day, 0 Refills, Maintenance, 11/10/19 12:11:00 EDT, Tablet Start Date: 11/10/19 Status: OrderedazaTHIOprine 50 mg oral tablet 100 mg, 2, tablet, By Mouth, Daily, # 60 tablet, Refills 0, Maintenance, 10/29/19 8:49:00 EDT Start Date: 10/29/19 Status: Orderedmelatonin 3 mg oral tablet By Mouth, Daily at bedtime, 0 Refills, Maintenance, 11/10/19 12:11:00 EDT, Tablet Start Date: 11/10/19 Status: OrderedmetFORMIN 500 mg oral tablet TAKE 2 TABLET BY MOUTH TWICE A DAY WITH MEALS Start Date: 10/29/19 Status: OrderedpredniSONE 20 mg oral tablet TAKE 2 TABLETS BY MOUTH EVERY MORNING ONCE A DAY Start Date: 10/29/19 Status: Orderedpyridostigmine 60 mg oral tablet TAKE 1 TABLET BY MOUTH 4 TIMES A DAY Start Date: 10/29/19 Status: OrderedSantyl Topical Oint 1 applicator, Topically, Daily, 0 Refills, Maintenance, Ointment Start Date: 11/10/19 Status: OrderedSEROquel 25 mg oral tablet 25 mg, 1, tablet, By Mouth, Daily at bedtime, Refills 0, Maintenance, 11/10/19 12:11:00 EDT Start Date: 11/10/19 Status: Orderedsimvastatin 40 mg oral tablet TAKE 1 TABLET BY MOUTH EVERY EVENING Start Date: 10/29/19 Status: Ordered Problem List Condition Effective Dates Status Health Status Informant Cardiac arrest(Confirmed) Active Heart failure with reduced ejection Active fraction(Confirmed) Hyperlipemia(Confirmed) Active HTN (hypertension)(Confirmed) Active Myasthenia gravis(Confirmed) Active Results Orders for Microbiology Reports Name Date Blood Culture 10/30/19 Sputum Culture w/ Gram Smear (Culture Sputum w/ Gram S mear) 10/29/19 Blood Culture #2 10/29/19 Blood Culture 10/29/19 Microbiology Reports TEST:Blood Culture STATUS:Auth (Verified) BODY SITE: SOURCE:Blood COLLECTED DATE/TIME:10/30/19 6:50 PMBlood Culture SPECIMEN DESCRIPTION : BLOOD NO SITE SPECIAL REQUESTS : NONE CULTURE : NO GROWTH 5 DAYS. REPORT STATUS : FINAL 11/04/2019TEST:Sputum Culture STATUS:Auth (Verified) BODY SITE: SOURCE:ENDOTR COLLECTED DATE/TIME:10/29/19 8:05 PMSputum Culture SPECIMEN DESCRIPTION : ENDOTRACHEAL ASPIRATE SPECIAL REQUESTS : NONE GRAM STAIN : 1+ SQ.EPITHELIAL CELLS 4+ POLYMORPHONUCLEAR LEUKOCYTES 3+ GRAM POSITIVE COCCI 1+ GRAM POSITIVE RODS CULTURE : 3+ NORMAL RE REPORT STATUS : FINAL 11/01/2019TEST:Blood Culture, Second Order STATUS:Auth (Verified) BODY SITE: SOURCE:Blood COLLECTED DATE/TIME:10/29/19 4:50 PMBlood Culture, Second Order SPECIMEN DESCRIPTION : BLOOD ARTERIAL SPECIAL REQUESTS : NONE CULTURE : NO GROWTH 5 DAYS. REPORT STATUS : FINAL 11/03/2019TEST:Blood Culture STATUS:Auth (Verified) BODY SITE: SOURCE:Blood COLLECTED DATE/TIME:10/29/19 11:42 AMBlood Culture SPECIMEN DESCRIPTION : BLOOD CENTRAL LINE SPECIAL REQUESTS : CRITICAL VALUE CALLED AND VERIFIED BY READBACK FOR: GRAM POSITIVE COCCI TO [id number] AT 1249 10/30/19 AT [id number] BY 157. CULTURE : STAPH. SPECIES, NOT STAPH. AUREUS SINGLE ISOLATES OF COAG. NEGATIVE STAPH., MICROCOCCI, BACILLUS AND DIPHTHEROIDS ARE USUALLY CONTAMINANTS. MULTIPLE ISOLATES OF THESE ORGANISMS MAY BE SIGNIFICANT. Staphylococcus species (not S. aureus) was identified by multi-plex PCR REPORT STATUS : FINAL 11/02/2019 ORGANISM STAPH. SPECIES, NOT STAPH. AUREUS SINGLE ISOLATES OF COAG. NEGATIVE STAPH., MICROCOCCI, BACILLUS AND DIPHTHEROIDS ARE USUALLY CONTAMINANTS. MULTIPLE ISOLATES OF THESE ORGANISMS MAY BE SIGNIFICANT. METHOD MIN. INHIB. CONC. (MCG/ML) CIPROFLOXACIN RESISTANT ERYTHROMYCIN RESISTANT LEVOFLOXACIN RESISTANT RIFAMPIN SUSCEPTIBLE TRIMETH/SULFAMETHOX RESISTANT VANCOMYCIN SUSCEPTIBLERadiology Reports Exam Date Time Procedure Performing Provider Status 11/02/19 4:51 PM Forearm 2 Views Left Baron , Tanisha; Auth (Ve rified) Notes:(Forearm 2 Views Left) Reason For Exam: PainRESULT: Forearm 2 Views Left Elbow 2 Views Left, Forearm 2 Views Left, 3 views Reason: Pain; Clinical Question(s): Fracture COMPARISON: None. FINDINGS: Elbow: No fracture or bone lesion. Normal alignment. Normal mineralization. Small tricep tendon enthesophyte at the trochlea attachment. Tiny spurring of the lateral humeral condyle. No joint effusion. Forearm: No fracture, bone lesion or dislocation. Normal bone mineralization. Normal radiocarpal alignment. Normal soft tissues. No radiopaque foreign body. IMPRESSION: No fracture or dislocation. I have personally reviewed the images and I agree with this report. WSN: [id number] Ordering Physician: Charlotte Cruz Dictated By: Jamal Paredes MD Dictated Date/Time: 11/02/19 4:58 pm Reviewed By: Jordon Lopez MD Signed By: Jordon Lopez MD Signed Date/Time: 11/02/19 5:03 pm Transcribed By: MICHELL Transcribed Date/Time: 11/02/19 4:56 pm Exam Date Time Procedure Performing Provider Status 11/02/19 4:51 PM Elbow 2 Views Left Baron , Tanisha; Auth (Irma christensen) Notes:(Elbow 2 Views Left) Reason For Exam: PainRESULT: Elbow 2 Views Left Elbow 2 Views Left, Forearm 2 Views Left, 3 views Reason: Pain; Clinical Question(s): Fracture COMPARISON: None. FINDINGS: Elbow: No fracture or bone lesion. Normal alignment. Normal mineralization. Small tricep tendon enthesophyte at the trochlea attachment. Tiny spurring of the lateral humeral condyle. No joint effusion. Forearm: No fracture, bone lesion or dislocation. Normal bone mineralization. Normal radiocarpal alignment. Normal soft tissues. No radiopaque foreign body. IMPRESSION: No fracture or dislocation. I have personally reviewed the images and I agree with this report. WSN: [id number] Ordering Physician: Charlotte Cruz Dictated By: Jamal Paredes MD Dictated Date/Time: 11/02/19 4:58 pm Reviewed By: Jordon Lopez MD Signed By: Jordon Lopez MD Signed Date/Time: 11/02/19 5:03 pm Transcribed By: MICHELL Transcribed Date/Time: 11/02/19 4:56 pm Exam Date Time Procedure Performing Provider Status 10/30/19 7:39 PM Chest Portable Isrrael Root (Verified ) Notes:(Chest Portable) Reason For Exam: Line PlacementRESULT: Chest Portable Chest Portable Reason: Line Placement; Clinical Question(s): Line Placement COMPARISON: chest radiograph. FINDINGS: LINES AND TUBES: Endotracheal tube terminates within the mid trachea. Left internal jugular catheter terminates at the mid SVC. Temperature probe within the esophagus. Enteric tube within the stomach. LUNGS AND PLEURA: Bibasilar atelectasis. Possible small bilateral pleural effusions. No pneumothorax. HEART, MEDIASTINUM AND AMY: Heart is normal in size. Normal mediastinal and hilar contour. BONES AND SOFT TISSUES: No acute abnormality. IMPRESSION: 1. Left internal jugular central line has been placed, with no pneumothorax. 2. Additional lines and tubes in appropriate position as described above. 3. Bibasilar atelectasis, with possible small bilateral effusions. WSN: [id number] Ordering Physician: Nikhil Miguel Dictated By: Rudolph Vale MD Dictated Date/Time: 10/30/19 7:41 pm Reviewed By: Rudolph Vale MD Signed By: Rudolph Vale MD Signed Date/Time: 10/30/19 7:41 pm Transcribed By: MICHELL Transcribed Date/Time: 10/30/19 7:40 pm Exam Date Time Procedure Performing Provider Status 10/29/19 11:35 AM Chest Portable Priscilla Murdock; Chaparro ([facility] ed) Notes:(Chest Portable) Reason For Exam: Line PlacementRESULT: Chest Portable Chest Portable INDICATION/CLINICAL QUESTION: Reason: Line Placement; Clinical Question(s):. Possible septic shock. Recent arrest. TECHNIQUE: AP chest 1118 hours 10/29/2019. COMPARISON: None.. FINDINGS: LINES AND TUBES: Central line tip superior vena cava. Endotracheal tube and NG tube satisfactory.. LUNGS AND PLEURA: RIGHT CHEST: The upper in the midlung are clear. Small amount of patchy disease at right base.. No right effusion or pneumothorax. LEFT CHEST: Left lung clear with no effusion or pneumothorax.. HEART AND MEDIASTINAL CONTOURS: Normal. BONES AND SOFT TISSUES: No acute abnormality.. IMPRESSION: 1. Small amount of nonspecific patchy disease at right lung base with no other right chest abnormality. 2. Left lung clear with no effusion. WSN: [id number] Ordering Physician: Konrad Peng Dictated By: Clarence Ash MD Dictated Date/Time: 10/29/19 3:06 pm Reviewed By: Clarence Ash MD Signed By: Clarence Ash MD Signed Date/Time: 10/29/19 3:06 pm Transcribed By: MICHELL Transcribed Date/Time: 10/29/19 3:03 pm Vital Signs Most recent to oldest 1 2 3 [Reference Range]: Height 175 cm 175 cm 175 cm (11/10/19 8:36 AM) (11/10/19 12:31 AM) (11/09/19 9:06 PM) Weight 80.6 kg 88.6 kg 83.2 kg (11/07/19 6:24 AM) (11/04/19 8:33 AM) (11/02/19 2:19 PM) Oxygen Saturation [94-100 95 % 94 % 95 % %] (11/10/19 8:36 AM) (11/10/19 12:31 AM) (11/09/19 9:06 PM) Pulse Rate [55-90 bpm] 80 bpm 82 bpm 76 bpm (11/10/19 8:36 AM) (11/10/19:31 AM) (11/09/19 9:06 PM) Blood Pressure 160/73 mm Hg 160/73 mm Hg 111/74 mm Hg [90-138/55-84 mm Hg] *H* *H* (11/10/19: 31 AM) (11/10/19 9:23 AM) (11/10/19 8:36 AM) Respiratory Rate [16-30 21 br/min 18 br/min 18 br/mi n br/min] (11/10/19 8:36 AM) (11/10/19:31 AM) (11/09/19 9:06 PM) Temperature [96.8-100.4 97.5 DegF 97.3 DegF 97.4 Deg F DegF] (11/10/19 8:36 AM) (11/10/19:31 AM) (11/09/19 9:06 PM) Liters per Minute 3 L/min (11/02/19 10:00 AM) Mode of Delivery (Oxygen) Room air Room air Room a ir (11/10/19 8:36 AM) (11/10/19:31 AM) (11/09/19 9:06 PM) Blood pressure sites Arm, right Arm, right Arm, right (11/10/19 8:36 AM) (11/10/19 12:31 AM) (11/09/19 9:06 PM) Temperature Route Oral Oral Oral (11/10/19 8:36 AM) (11/10/19:31 AM) (11/09/19 9:06 PM) Dry Weight 76.7 kg 65.6 kg (10/31/19 7:47 AM) (10/29/19 11:04 AM) Weight Obtained Via Bed scale (11/07/19 6:24 AM) Dry Weight Obtained Via Bed scale (10/31/19 7:47 AM) Mobility assistance Transfer, assist of 2 Transfer, assist of 2 Transfer, assist of 2 (11/02/19 4:00 PM) (11/02/19 2:00 PM) (11/02/19 12: 00 PM) Social History Social History Type Response Smoking Status Former smoker, quit more bell n 30 days ago; Other: Quit smoking 30 years ago; entered on: 10/29/19 Sex
[2022-05-19 18:43] LABS: COVID-19 Test Negative (Negative); IDNOW Serial# 16C4AD1C
[2022-05-19 18:44] LABS: INTERNATIONAL NORM RATIO 1.3 (0.9-1.1); Prothrombin Time 15.4 SEC (10.0-13.1)
[2022-05-19] MEDS: 0.9 % Sodium Chloride 1,000 ML 999 ML IV ×3 (18:47→22:16)
[2022-05-19] MEDS: cefTRIAXone sodium 1 GM in 0.9 % Sodium Chloride 50 ML IV (18:49)
[2022-05-19 19:03] LABS: Lactic Acid 3.5 mmol/L (0.5-2.0)
[2022-05-19 19:08] LABS: Basophils Percent Auto 0.2 % (0-2); Hematocrit 29.3 % (42.0-52.0); Hemoglobin 9.4 g/dl (14.0-18.0); Imm Gran Abs Auto 0.13 X10*3/uL (0.00-0.03); Lymphocytes Absolute Auto 0.4 X10*3/uL (1.2-4.9); Lymphocytes Percent Auto 3.3 % (20-40); MANUAL DIFF FLAG SCAN; Mean Corpuscular HGB Conc 32.1 g/dl (31.0-36.0); Mean Corpuscular Hemoglobin 28.4 pg (27.0-33.0); Mean Corpuscular Volume 88.5 fL (80.0-98.0); Mean Platelet Volume 9.5 fL (9.4-12.4); Monocytes Absolute Auto 0.5 X10*3/uL (0.1-1.2); Monocytes Percent Auto 3.8 % (2-11); Neutrophils Absolute Auto 11.9 x10*3/uL (2.0-8.3); Neutrophils Percent Auto 91.7 % (45-73); Platelet Count 273 X10*3/uL (160-400); Red Blood Count 3.31 X10*6/uL (4.60-5.80); Red Cell Distribution Width 19.3 % (11.0-16.0); SCAN SMEAR FLAG 1
[2022-05-19 19:12] LABS: Alanine Aminotransferase 31 U/L (0-40); Albumin Level 3.3 g/dL (3.5-5.0); Alkaline Phosphatase 44 U/L (39-117); Anion Gap 23 (12-20); Aspartate Amino Transferase 47 U/L (5-37); Bilirubin Total 0.5 mg/dL (0.0-1.0); Blood Urea Nitrogen 54 mg/dL (9-16); Calcium 8.5 mg/dL (8.4-10.2); Carbon Dioxide 21 mmol/L (22-29); Chloride 99 mmol/L (96-108); Creatinine Clr Calc Pharmacy 28.3; Estimated Glomerular Filt Rate 17; Glucose Random 180 mg/dL (60-115); Magnesium 2.2 mg/dL (1.6-2.6); Sodium 139 mmol/L (135-145); Total Protein 5.9 g/dL (6.5-8.0)
[2022-05-19 19:30] LABS: SLIDE REVIEW VERIFIED
[2022-05-19] MEDS: vancomycin HCL 1,000 MG in 0.9 % Sodium Chloride 250 ML 270 MG IV (20:18)
[2022-05-19 20:37] LABS: Reflex Lactate? Lactic Acid Added
--- NOTE | 2022-05-19 21:00 | PC.NURSE ---
Pt blood pressure trending low, Emergency MD aware.
--- NOTE | 2022-05-19 21:32 | P.HPHOSP_ITS ---
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 Patient reports that he has not been eating for the past several days. He is not forthcoming with information but states that he has no appetite and has not been eating well. He is also pointing to his leg stating that he is has lower extremity edema and redness since he 8 years ago, but did feel that they were worse specially on the right. He does not tell me what the time. Of them getting worse is. He denies any chest pain, no shortness of breath, no abdominal pain nausea or vomiting, no diarrhea constipation, no urinary symptoms. On my exam patient appears dyspnea, when asked him if he is short of breath he reports that he is not short of breath more than his usual baseline. He denies any orthopnea or PND. On arrival to the ED patient initially had blood pressure of 99/45, all other vitals stable Labs are significant for WBC count 13, hemoglobin of 9.4, hematocrit of 29.3, INR of 1.3, BUN of 54, creatinine of 3.57 with a baseline of 0.92, lactic acid of 3.9, AST of 47 which is chronically elevated, albumin of 3.3, COVID-19 negative Chest x-ray shows no evidence of CHF or pneumonia Review of Systems Review of Systems: Yes all other systems are reviewed and are negative [facility] Medical History Aspiration pneumonia CHF (congestive heart failure) Diabetes Diabetes mellitus, type 2 DVT (deep venous thrombosis) Edema Erythema of lower extremity Hypercholesteremia Hypertension Intractable nausea and vomiting Leg edema Myasthenia gravis Myasthenia gravis Myasthenia gravis Myocardial infarction Obesity TBI (traumatic brain injury) Family History Mother No problems noted. Father No problems noted. Other No family history of coronary artery disease Social History Household Members: Significant Other and Family Housing: House Do you presently have visiting nurse or other home services: Yes Unable to assess alcohol history related to: Unknown Alcohol intake: unknown Patient Tobacco Use Status: Former Tobacco user Tobacco use type: Cigarette Smoked in Last 30 Days: No Second Hand Smoke Exposure: Yes Use of substances other than those prescribed or required for medical reasons: No Substance Use Type: Former Substance User Advance Directives: Yes Advance Directives on File: Yes Advance Directives Date on File: 05/05/21 service: No Current occupational status: retired [employer] Allergies Allergy/AdvReac Type Severity Reaction Status Date / Time No Known Allergies Allergy Verified 09/02/21 14:18 [No Known Allergies*] Home Medications Medication Instructions Recorded Confirmed Last Taken Type azathioprine 50 mg tablet (Imuran) 50 mg PO TID 06/02/20 05/08/22 04/20/22 History pyridostigmine bromide 60 mg tablet 1 tab PO QID 06/02/20 05/08/22 04/20/22 History quetiapine 25 mg tablet 1 tab PO BEDTIME 06/02/20 05/08/22 04/20/22 History valsartan 80 mg tablet 1 tab PO DAILY 06/02/20 05/08/22 04/20/22 History clotrimazole 1 % topical cream 1 appl topical BID PRN TOE, RASH 08/24/21 05/08/22 08/24/21 History gabapentin 300 mg capsule 1 cap PO BID@0800,1600 08/24/21 05/08/22 04/20/22 History loperamide 2 mg capsule 1 tab PO BID@0800,1600 08/24/21 05/08/22 04/20/22 History mycophenolate mofetil 500 mg 1 tab PO BID@0800,1600 08/24/21 05/08/22 04/20/22 History tablet (CellCept) prednisone 10 mg tablet 25 mg PO DAILY 11/30/21 05/08/22 04/20/22 History albuterol sulfate 90 mcg/actuation 2 puff inhalation Q4H PRN Wheezing 01/23/22 05/08/22 Unknown History aerosol inhaler (Ventolin HFA) furosemide 40 mg tablet 80 mg PO DAILY 01/23/22 05/08/22 04/20/22 History mirtazapine 30 mg tablet 1 tab PO BEDTIME 0705/08/22 04/20/22 History triamcinolone acetonide 0.1 % 1 appl topical BID PRN RASH, FOOT 01/23/22 11/0 10/24 Unknown History topical cream glipizide 5 mg tablet 10 mg PO BID@0800,1600 04/21/22 05/08/22 04/20/22 History Physical Exam Vital Signs and Narrative: Vital Signs: Last Vital Signs Temp 98.1 F 05/19/22 20:51 Pulse 88 05/19/22 20:51 Resp 23 H 05/19/22 20:51 BP 133/44 L 05/19/22 20:51 Pulse Ox 95 05/19/22 20:51 O2 Del Method 05/19/22 20:51 BMI result Body Mass Index 61.1 Const: General: cooperative and no acute distress Or ientation/consciousness: patient oriented x3 Eyes: General: appearance normal, both eyes and all related structures Pup ils: Equal, round and reactive pupils present Resp: Other: Patient dyspnea Effort & Inspection: normal respiratory effort and able to speak in complete sentences Cardio: Rate: regular rate Rhythm: regular rhythm GI: Palpation (GI): Soft to palpation Auscultation: normal bowel sounds Skin: Other: Lower extremity bilaterally erythema, right lower extremity has worsening erythema all the way to below the knee, he also has open wounds at the calf of his rig leg that is significantly tender, weeping, warm, and edamatous General skin exam: no rashes or lesions noted Neuro: General: patient oriented x3 Cranial nerves: Yes Equal, round and reactive pupils present Cognition (Neuro): normal cognition Extrem: Other: See skin of lower extremities Results Labs CBC and Chem 7: 05/19/22 18:32 05/19/22 18:32 Labs: Laboratory Results - last 24 hr 05/19/22 05/19/22 05/19/22 18:17 18:32 18:32 MCV 88.5 MCH 28.4 MCHC 32.1 RDW 19.3 H Plt Count 273 D MPV 9.5 Immature Gran % (Auto) 1.0 H Neut % (Auto) 91.7 H Lymph % (Auto) 3.3 L [place] % (Auto) 3.8 Eos % (Auto) 0.0 Baso % (Auto) 0.2 Lymph # (Auto) 0.4 L [place] # (Auto) 0.5 Eos # (Auto) 0.0 Baso # (Auto) 0.0 Abs Immat Gran (auto) 0.13 H Absolute Neuts (auto) 11.9 H Absolute Nucleated RBC 0.000 Nucleated RBC % (auto) 0.0 Smear Tech's Comments VERIFIED PT 15.4 H INR 1.3 H Anion Gap Estim Creat Clear Calc Estimated GFR Random Glucose Lactic Acid Calcium Magnesium Total Bilirubin AST ALT Alkaline Phosphatase Total Protein Albumin COVID-19 (MANISHA) Negative COVID-19 Clin Com See Note 05/19/22 05/19/22 18:32 18:32 MCV MCH MCHC RDW Plt Count MPV Immature Gran % (Auto) Neut % (Auto) Lymph % (Auto) [place]atte % (Auto) Eos % (Auto) Baso % (Auto) Lymph # (Auto) [place]atte # (Auto) Eos # (Auto) Baso # (Auto) Abs Immat Gran (auto) Absolute Neuts (auto) Absolute Nucleated RBC Nucleated RBC % (auto) Smear Tech's Comments PT INR Anion Gap 23 H Estim Creat Clear Calc 28.3 Estimated GFR 17 Random Glucose 180 H Lactic Acid 3.5 H* Calcium 8.5 Magnesium 2.2 Total Bilirubin 0.5 AST 47 H ALT 31 Alkaline Phosphatase 44 Total Protein 5.9 L Albumin 3.3 L COVID-19 (MANISHA) COVID-19 Clin Com Imaging Radiologist's Impressions: Impressions Chest X-Ray 05/19/22 17:52 IMPRESSION: No acute intrathoracic disease or convincing evidence of CHF. Chronic blunting of the left costophrenic angle. Assessment and Plan (1) Sepsis: Qualifiers: Sepsis type: sepsis due to unspecified organism Sepsis acute organ dysfunction status: with acute organ dysfunction Severe sepsis acute organ dysfunction type: acute renal failure Acute renal failure type: unspecified Status: Acute (2) KIMBERLEY (acute kidney injury): Status: Acute (3) Lactic acidosis: Status: Acute (4) Cellulitis: Qualifiers: Site of cellulitis: extremity Site of cellulitis of extremity: lower extremity Laterality: right Qualified Code(s): L03.115 - Cellulitis of right lower limb Status: Acute Plan 72-year-old male with past medical history of CHF, hypertension, diabetes, recently diagnosed DVT, presents to the hospital with complaints of poor oral intake found to have sepsis # sepsis - has leukocytosis, lactic acidosis, tachypnea - likely source cellulitis of right lower extremity - chest x-ray negative for pneumonia but given his significant dyspnea will obtain chest CT to rule out any other etiology - UA pending - IV antibiotics # cellulitis of right lower extremity - has an open wound at the calf of his right lower extremity with erythema, edema, warmth and tenderness - will treat with IV antibiotics - follow cultures # lactic acidosis - likely secondary to above - resolved after IV fluid # KIMBERLEY - likely secondary to poor oral intake as well as taking furosemide, and as well as acute infection - IV fluids - follow BMP - avoid nephrotoxins - will obtain CT abdomen pelvis to rule out any obstruction # CHF - does not appear to be in volume overload - hold Lasix at this time given KIMBERLEY and sepsis - chest x-ray negative for any pulmonary congestion - monitor respiratory status and volume status # hypertension - blood pressure on the soft side - hold antihypertensives # diabetes - low-dose sliding scale insulin - diabetic diet # history of DVT - continue Eliquis DVT prophylaxis: Eliquis Given patient's need for IV antibiotics and IV fluids patient will require minimum 2 night inpatient hospital stay for further management and evaluation Quality Stroke Does the patient have a stroke diagnosis?: No VTE Prior VTE?: No VTE Risk Level:: Medical - moderate - high VTE Device Contraindication: Treatment Not Indicated VTE Drug Contraindication: N/A - Med Ordered
--- OUTSIDE RECORDS SUMMARY | 2022-05-19 21:37 | XMS_ITS ---
:1950 Author Care Team Providers Name Role Phone MAURI RADER ([place]) OTHER [phone] Allergies Code Code System Name Reaction Severity [...]
--- NOTE | 2022-05-19 21:54 | PC.NURSE ---
LR running late, pt still getting liter bolus of NS for blood pressure and pharmacy has not verified the medicaiton yet
[2022-05-19 22:08] LABS: ~Lactic Acid-LAB USE ONLY 1.9 mmol/L (0.5-2.0)
--- NOTE | 2022-05-19 22:32 | PC.NURSE ---
Addendum entered by Andreia Jimenez 05/20/22 02:12: In addition, pt has skin breakdown on right inner calf, non stageable Original Note: Pt has quarter sized abraision on left inner ankle. Surrounded by raw, red skin. On right calf/rios skin is red (cellulitis like). Pt reports 3/10 pain in both lower extremities
[2022-05-19] MEDS: Lactated Ringers 1,000 ML 100 ML IVCONT (22:45)
--- NOTE | 2022-05-19 23:10 | PC.NURSE ---
Addendum entered by Andreia Jimenez 05/20/22 02:27: blood pressure 78/42 Original Note: Pt blood pressure conitnuing to trend low, Dr. Lewis aware
[2022-05-19] MEDS: 0.9 % Sodium Chloride Flush 3 ML SYRINGE IVFLUSH (23:11)
[2022-05-19] MEDS: Midodrine HCl 10 MG TABLET PO (23:31)
--- NOTE | 2022-05-19 23:54 | PC.NURSE ---
Pt blood pressure continuing to trend low despite multiple fluid bolus and midodrine. MD ordered Albumin, awaiting pharmacy verification
[2022-05-20] VITALS (26 sets, daily range): BP systolic 74–151; BP diastolic 22–68; PULSE 62–122; RESP 11–24; TEMP 36.2–36.7; O2SAT 91–100; BMI 37.8
[2022-05-20] MEDS: Albumin Human 25 % 100 ML IV ×6 (00:10→21:27)
[2022-05-20 00:29] LABS: B Type Natriuretic Peptide 44 pg/mL (<100)
[2022-05-20 00:35] LABS: Alanine Aminotransferase 30 U/L (0-40); Albumin Level 2.8 g/dL (3.5-5.0); Alkaline Phosphatase 36 U/L (39-117); Anion Gap 17 (12-20); Aspartate Amino Transferase 44 U/L (5-37); Bilirubin Total < 0.2 mg/dL (0.0-1.0); Blood Urea Nitrogen 49 mg/dL (9-16); Calcium 7.2 mg/dL (8.4-10.2); Carbon Dioxide 20 mmol/L (22-29); Chloride 108 mmol/L (96-108); Creatinine Clr Calc Pharmacy 25.4; Estimated Glomerular Filt Rate 22; Glucose Random 46 mg/dL (60-115); Potassium 3.6 mmol/L (3.3-5.1); Sodium 141 mmol/L (135-145)
[2022-05-20] MEDS: Dextrose 50 % 25 GM/50 ML SYRINGE IVPUSH ×3 (00:49→08:29)
--- NOTE | 2022-05-20 01:21 | PC.NURSE ---
Pt moved into hospital bed for comfort
[2022-05-20 01:24] LABS: Appearance Urine Cloudy; Color Urine Yellow; Glucose Urine UA Negative (Negative); Leukocyte Esterase Urine Negative (Negative); Nitrite Urine Negative (Negative); PH 5.5 (5.0-9.0); Specific Gravity - Urine 1.015 (1.005-1.025); UMIC TRIGGER UA YES; Urine Blood Small (1+) (Negative); Urine Ketones Negative (Negative); Urine Protein 100 (2+) mg/dL (Neg-Trace)
[2022-05-20 01:37] LABS: Granular Casts Urine Present; RBC Urine 0-2 /HPF (0-2); WBC Urine 0-5 /HPF (0-5)
[2022-05-20 01:38] LABS: Bacteria Urine Trace (None Seen)
--- NOTE | 2022-05-20 01:42 | PC.NURSE ---
Pt blood pressure 107/38, this RN called Dr. Lewis, no new orders at this time
[2022-05-20 02:19] LABS: Glucose, Whole Blood 91 mg/dL (60-115)
--- NOTE | 2022-05-20 02:24 | PC.NURSE ---
pt pressure down to 84/34, zainaber texted Dr. Lewis who states she will call ICU
--- NOTE | 2022-05-20 02:37 | PC.NURSE ---
Yessy, SUPERVISOR QUILTING from ICU in to see pt, states I don't believe he needs ICU treatment but I will take him any way to keep his blood pressure . No new orders besides transfer to ICU
--- NOTE | 2022-05-20 02:55 | P.CONCC_ITS ---
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 and found to have sepsis? from? cellulitis of lower extremity.? Initially admitted to Hospital Medicine. ? Later during the night? patient becoming? more hypotensive despite? 3.5 L bolus, 10 of midodrine and 100ml Albumin.? ? Focused assessment performed at 0245? patient blood pressure 115/43, ? patient is alert and oriented time? person and place, per nursing? patient does have? episodes of confusion. He was in no resp distress.? Satting 98% on room air.? Lungs CTA.? Sinus rhythm on the monitor. S1-S2 present. No M/R/G. Normal capillary refill, pulses present in all extremities, abdomen soft, ? Nondistended.? Bilateral extremity cellulitis noted, > on right? ?? Patient will be transferred to ICU for management of hypotension Review of Systems Review of Systems: Patient has periods of confusion unable to perform PMFSH Past Medical History Medical History Aspiration pneumonia CHF (congestive heart failure) Diabetes Diabetes mellitus, type 2 DVT (deep venous thrombosis) Edema Erythema of lower extremity Hypercholesteremia Hypertension Intractable nausea and vomiting Leg edema Myasthenia gravis Myasthenia gravis Myasthenia gravis Myocardial infarction Obesity TBI (traumatic brain injury) Family History Family History Mother No problems noted. Father No problems noted. Other No family history of coronary artery disease Social History Social History Household Members: Significant Other and Family Housing: House Do you presently have visiting nurse or other home services: Yes Unable to assess alcohol history related to: Unknown Alcohol intake: unknown Patient Tobacco Use Status: Former Tobacco user Tobacco use type: Cigarette Second Hand Smoke Exposure: Yes Substance Use Type: Former Substance User Advance Directives Date on File: 05/05/21 service: No Current occupational status: retired Meds Allergies Allergy/AdvReac Type Severity Reaction Status Date / Time No Known Allergies Allergy Verified 09/02/21 14:18 [No Known Allergies*] Active Medications: Current Medications Acetaminophen (Acetaminophen 325 Mg Tablet) 650 mg PO Q6H PRN PRN Reason: Pain, Mild (Pain Scale 1-3) Docusate Sodium (Docusate Sodium 100 Mg Capsule) 100 mg PO DAILY PRN PRN Reason: Constipation Vancomycin HCl 500 mg/ Sodium (Chloride) 110 mls @ 110 mls/hr IV Q24H PELON Albumin Human (Kedbumin 25 %) 100 mls @ 100 mls/hr IV Q1H [facility] Stop: 05/20/22 04:59 Ondansetron HCl (Ondansetron Hcl 4 Mg/2 Ml Vial) 4 mg IVPUSH Q8H PRN PRN Reason: Nausea and Vomiting Pharmacy Consult (Consult Rx Vancomycin Dosing) 1 each MISCELLANE DAILY PRN PRN Reason: Consult order Sodium Chloride (0.9 % Sodium Chloride Flush 3 Ml Syringe) 3 ml IVFLUSH [facility] Last Admin: 05/19/22 23:11 Dose: 3 ml Home Medications Medication Instructions Recorded Confirmed Last Taken Type azathioprine 50 mg tablet (Imuran) 50 mg PO TID 06/02/20 05/20/22 05/19/22 History pyridostigmine bromide 60 mg tablet 1 tab PO QID 06/02/20 05/20/22 05/19/22 History quetiapine 25 mg tablet 1 tab PO BEDTIME 06/02/20 05/20/22 05/19/22 History valsartan 80 mg tablet 1 tab PO DAILY 06/02/20 05/20/22 05/19/22 History clotrimazole 1 % topical cream 1 appl topical BID PRN TOE, RASH 08/24/21 05/20/22 08/24/21 History gabapentin 300 mg capsule 1 cap PO BID@0800,1600 08/24/21 05/20/22 05/19/22 History loperamide 2 mg capsule 2 mg PO BID@0800,1600 08/24/21 05/20/22 05/19/22 History mycophenolate mofetil 500 mg 1 tab PO BID@0800,1600 08/24/21 05/20/22 05/19/22 History tablet (CellCept) prednisone 10 mg tablet 25 mg PO DAILY 11/30/21 05/20/22 05/19/22 History albuterol sulfate 90 mcg/actuation 2 puff inhalation Q4H PRN Wheezing 01/23/22 05/20/22 05/19/22 History aerosol inhaler (Ventolin HFA) furosemide 40 mg tablet 80 mg PO DAILY 01/23/22 05/20/22 05/19/22 History mirtazapine 30 mg tablet 1 tab PO BEDTIME 01/23/22 05/20/22 05/19/22 History triamcinolone acetonide 0.1 % 1 appl topical BID PRN RASH, FOOT 01/23/22 05/20/22 05/19/22 History topical cream glipizide 5 mg tablet 10 mg PO BID@0800,1600 04/21/22 05/20/22 05/19/22 History Physical Exam Vital Signs: Vital Signs: Last Vital Signs Temp 97.9 F 05/20/22 01:19 Pulse 70 05/20/22 02:28 Resp 15 05/20/22 02:28 BP 74/34 L 05/20/22 02:28 Pulse Ox 100 05/20/22 02:28 O2 Del Method 05/20/22 02:28 O2 Flow Rate 0.5 05/20/22 02:28 BMI result Body Mass Index 33.3 See HPI Results Labs CBC & Chem 7: 05/19/22 18:32 05/20/22 00:02 Labs: Short CBC 05/19/22 Range/Units 18:32 WBC 13.0 H (4.8-10.8) X10*3/uL Hgb 9.4 L (14.0-18.0) g/dl Hct 29.3 L D (42.0-52.0) % Plt Count 273 D (160-400) X10*3/uL BMP 05/19/22 05/20/22 18:32 00:02 Sodium 139 141 Potassium 4.0 3.6 Chloride 99 108 Carbon Dioxide 21 L 20 L BUN 54 H 49 H D Creatinine 3.57 H 2.82 H Calcium 8.5 7.2 L D Liver Function 05/19/22 05/20/22 Range/Units 18:32 00:02 Total Bilirubin 0.5 < 0.2 (0.0-1.0) mg/dL AST 47 H 44 H (5-37) U/L ALT 31 30 (0-40) U/L Alkaline Phosphatase 44 36 L D (39-117) U/L Albumin 3.3 L 2.8 L D (3.5-5.0) g/dL Urine 05/20/22 Range/Units 01:19 Urine Color Yellow Urine Appearance Cloudy Urine pH 5.5 (5.0-9.0) Ur Specific [place] 1.015 (1.005-1.025) Urine Protein 100 (2+) H (Neg-Trace) mg/dL Urine Glucose (UA) Negative (Negative) mg/dL Assessment and Plan (1) Septic shock: Status: Acute (2) KIMBERLEY (acute kidney injury): Status: Acute (3) DVT (deep venous thrombosis): Status: Acute (4) Cellulitis: Qualifiers: Laterality: right Site of cellulitis: extremity Site of cellulitis of extremity: lower extremity Qualified Code(s): L03.115 - Cellulitis of right lower limb Status: Acute Plan ?Plan: Neuro:? Altered mental status-? patient tolerating oriented person and place, has history of TBI? and does have a history of confusion and forgetfulness at times. ? Likely chronic.? Cardiac: ?Septic shock: ? patient with multiple low blood pressures while in the emergency room,? when I saw the patient he was normotensive.? ? Received 3.5 L of? crystalloids. Will add an albumin.? ?No need for pressors at this time.? Continue antibiotics Pulmonary: ?No acute issues Renal:? ?KIMBERLEY-? nonoliguric. Creatinine is improving after [address] CT of the abdomen is negative.? Will continue to monitor renal indices Endo:?? ?No acute issues GI:?? ?No acute issues ID: ?Cellulitis-? patient has bilateral lower extremity redness worse on the right.? Received? ceftriaxone, and vancomycin.? Will continue empiric antibiotics Heme/Onc:?? ?No acute issues Psych:? No acute issues. Miscellaneous:? No acute issues. Prophylaxis: ?On Eliquis home.? Will continue CODE:? ? DNR/DNI Critical care time: X 30 minutes of critical care time? Critical Care Time Critical Care Time (minutes): 30
--- NOTE | 2022-05-20 03:09 | PC.NURSE ---
This RN and DAT Casillas transferred pt to ICU with no complications
[2022-05-20 04:47] LABS: Glucose, Whole Blood 43 mg/dL (60-115)
[2022-05-20 05:15] LABS: Glucose, Whole Blood 151 mg/dL (60-115)
[2022-05-20 05:33] LABS: MANUAL DIFF FLAG NO
[2022-05-20 05:36] LABS: Basophils Percent Auto 0.1 % (0-2); Eosinophils Percent Auto 0.3 % (0-4); Hematocrit 24.4 % (42.0-52.0); Imm Gran Abs Auto 0.06 X10*3/uL (0.00-0.03); Imm Gran Pct Auto 0.7 % (0.0-0.4); Lymphocytes Absolute Auto 0.8 X10*3/uL (1.2-4.9); Mean Corpuscular HGB Conc 30.7 g/dl (31.0-36.0); Mean Corpuscular Hemoglobin 27.6 pg (27.0-33.0); Mean Corpuscular Volume 89.7 fL (80.0-98.0); Mean Platelet Volume 9.9 fL (9.4-12.4); Monocytes Absolute Auto 0.4 X10*3/uL (0.1-1.2); Monocytes Percent Auto 4.4 % (2-11); Neutrophils Absolute Auto 7.6 x10*3/uL (2.0-8.3); Neutrophils Percent Auto 85.5 % (45-73); Platelet Count 195 X10*3/uL (160-400); Red Blood Count 2.72 X10*6/uL (4.60-5.80); Red Cell Distribution Width 19.1 % (11.0-16.0); White Blood Count 8.8 X10*3/uL (4.8-10.8)
[2022-05-20 05:43] LABS: Hemoglobin 7.5 g/dl (14.0-18.0)
[2022-05-20 05:51] LABS: Anion Gap 16 (12-20); Blood Urea Nitrogen 45 mg/dL (9-16); Calcium 7.9 mg/dL (8.4-10.2); Carbon Dioxide 20 mmol/L (22-29); Chloride 110 mmol/L (96-108); Creatinine Clr Calc Pharmacy 29.5; Estimated Glomerular Filt Rate 26; Glucose Random 148 mg/dL (60-115); Potassium 3.3 mmol/L (3.3-5.1); Sodium 143 mmol/L (135-145)
--- NOTE | 2022-05-20 06:35 | PM.EVENT ---
Event Note Date of Service: 05/20/22 Event Note: Overnight patient became significantly hypotensive not responding to 30 cc/kg IV fluids, patient received midodrine and a dose of albumin with no significant improvement in his P therefore patient was transferred to ICU.
[2022-05-20 06:44] LABS: Albumin Level 3.6 g/dL (3.5-5.0); Phosphorus 4.9 mg/dL (2.7-4.5)
--- NOTE | 2022-05-20 07:29 | HE.PHANOTE ---
EB TAYLOR CONTINUE CURRENT DOSE; NEXT TROUGH DUE 05/21 @1800 JUAN C
[2022-05-20 08:19] LABS: Glucose, Whole Blood 43 mg/dL (60-115)
[2022-05-20] MEDS: 0.9 % Sodium Chloride Flush 3 ML SYRINGE IVFLUSH ×2 (08:29→15:56)
[2022-05-20 08:50] LABS: Glucose, Whole Blood 92 mg/dL (60-115)
--- NOTE | 2022-05-20 09:55 | MHC.CM.PN ---
This Quarter Backer called pt's daughter Lucila to discuss CM assessment. Patient is from home and lived with , daughter and son-in-law. 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 HCP on file. Vax'd. Goal would be for patient to return home but daughter is open to STR rehab if it is recommended. PCP is Dr. Levy. can transport if going home.
--- NOTE | 2022-05-20 10:11 | PHA.MEDREC ---
Pharmacy Consult ? Medication Reconciliation Pharmacy has reviewed the medication reconciliation completed by nursing. Cross check with discharge summary on 04/19/2022 and claim history. Shirley Esposito, KarieD
[2022-05-20] MEDS: predniSONE 20 MG TABLET PO (10:13)
[2022-05-20] MEDS: Hydrocortisone Sod Succ/PF 100 MG VIAL IVPUSH (10:13)
[2022-05-20] MEDS: Apixaban 5 MG TABLET PO ×2 (10:13→21:33)
[2022-05-20] MEDS: mycophenolate mofetiL 250 MG CAPSULE 500 MG PO ×2 (12:06→21:33)
[2022-05-20] MEDS: pyRIDostigmine bromide 60 MG TABLET PO ×3 (12:06→21:33)
[2022-05-20] MEDS: azaTHIOprine 50 MG TABLET PO ×3 (12:07→21:33)
[2022-05-20 12:11] LABS: Glucose, Whole Blood 96 mg/dL (60-115)
--- NOTE | 2022-05-20 16:07 | PC.NURSE ---
1540-report called to MADELINE Kent in [place]
--- NOTE | 2022-05-20 16:39 | PC.NURSE ---
1620-pt transported with CCT x2. pt stable and pt belongings with pt during transport.
[2022-05-20 16:41] LABS: Glucose, Whole Blood 251 mg/dL (60-115)
[2022-05-20] MEDS: Insulin Lispro 100 UNIT/ML 3 ML VIAL SUBCUT ×2 (17:22→21:33)
[2022-05-20] MEDS: cefTRIAXone sodium 1 GM in 0.9 % Sodium Chloride 50 ML IV (17:31)
[2022-05-20 20:22] LABS: Glucose, Whole Blood 179 mg/dL (60-115)
[2022-05-20] MEDS: vancomycin HCL 500 MG in 0.9 % Sodium Chloride 100 ML 110 MG IV (21:27)
[2022-05-21] MEDS: Albumin Human 25 % 100 ML IV (01:11)
[2022-05-21] MEDS: 0.9 % Sodium Chloride Flush 3 ML SYRINGE IVFLUSH ×3 (01:11→17:07)
[2022-05-21 04:00] VITALS: PULSE 100
[2022-05-21 06:23] LABS: Hematocrit 28.7 % (42.0-52.0); Mean Corpuscular HGB Conc 31.4 g/dl (31.0-36.0); Mean Corpuscular Hemoglobin 28.3 pg (27.0-33.0); Mean Corpuscular Volume 90.3 fL (80.0-98.0); Mean Platelet Volume 9.2 fL (9.4-12.4); Platelet Count 232 X10*3/uL (160-400); Red Blood Count 3.18 X10*6/uL (4.60-5.80); Red Cell Distribution Width 18.7 % (11.0-16.0); White Blood Count 9.9 X10*3/uL (4.8-10.8)
[2022-05-21 06:38] LABS: Anion Gap 21 (12-20); Blood Urea Nitrogen 36 mg/dL (9-16); Calcium 9.4 mg/dL (8.4-10.2); Carbon Dioxide 19 mmol/L (22-29); Chloride 115 mmol/L (96-108); Creatinine Clr Calc Pharmacy 37.3; Estimated Glomerular Filt Rate 32; Glucose Random 95 mg/dL (60-115); Potassium 3.8 mmol/L (3.3-5.1); Sodium 151 mmol/L (135-145)
[2022-05-21 07:33] LABS: Glucose, Whole Blood 89 mg/dL (60-115)
[2022-05-21 08:00] VITALS: BP 178/76; PULSE 85; RESP 20; TEMP 37; O2SAT 91
[2022-05-21] MEDS: mycophenolate mofetiL 250 MG CAPSULE 500 MG PO ×2 (09:28→20:00)
[2022-05-21] MEDS: azaTHIOprine 50 MG TABLET PO ×3 (09:28→20:00)
[2022-05-21] MEDS: pyRIDostigmine bromide 60 MG TABLET PO ×4 (09:28→20:00)
[2022-05-21] MEDS: predniSONE 20 MG TABLET PO (09:28)
[2022-05-21] MEDS: Apixaban 5 MG TABLET PO ×2 (09:28→19:58)
[2022-05-21] MEDS: Dextrose 5 % 1,000 ML 100 ML IVCONT (09:29)
[2022-05-21 11:29] LABS: Glucose, Whole Blood 121 mg/dL (60-115)
[2022-05-21 11:54] VITALS: BP 188/80; PULSE 85; RESP 20; TEMP 37; O2SAT 92
[2022-05-21 12:48] VITALS: PULSE 85; O2SAT 92
[2022-05-21] MEDS: Acetaminophen 325 MG TABLET 650 MG PO ×2 (13:59→19:59)
[2022-05-21 14:34] LABS: Anion Gap 20 (12-20); Blood Urea Nitrogen 34 mg/dL (9-16); Calcium 8.9 mg/dL (8.4-10.2); Carbon Dioxide 18 mmol/L (22-29); Chloride 112 mmol/L (96-108); Creatinine Clr Calc Pharmacy 41.7; Estimated Glomerular Filt Rate 36; Glucose Random 149 mg/dL (60-115); Potassium 3.4 mmol/L (3.3-5.1); Sodium 147 mmol/L (135-145)
--- NOTE | 2022-05-21 15:30 | HO.PM.IMPN ---
Subjective Subjective Date of Service: 05/21/22 Interval History: the patient was seen and evaluated this morning Brothers at the bedside, Laying in bed, feels comfortable overall On oxygen supplement Still mildly confused according to family No reported other overnight events. Systemic review: No fever, chills or weakness No chest pain, palpitation No shortness of breath or coughing No abdominal pain, nausea or vomiting No urinary symptoms No reported rash Physical Exam Vital Signs: Vital Signs: Last Vital Signs Temp 98.6 F 05/21/22 11:54 Pulse 85 05/21/22 12:48 Resp 20 05/21/22 11:54 BP 188/80 H 05/21/22 11:54 Pulse Ox 92 05/21/22 12:48 O2 Del Method 05/21/22 11:54 O2 Flow Rate 2 05/21/22 11:54 BMI result Body Mass Index 37.8 Const: Other: Constitutional : Awake, interactive, not in distress Neck : Normal inspection, Supple Cardiovascular : RRR, no JVP, trace bilateral lower extremity edema Respiratory : good bilateral air entry, basal fine crackles, no wheezes or rhonchi Gastrointestinal: soft, lax, Normal bowel sounds, Non tender Skin : Warm, Dry, mild erythema with no drainage, sensitive to touch Neurological : Alert & oriented to self and place, No focal deficit Objective Data Active Medications Acetaminophen (Acetaminophen 325 Mg Tablet) 650 mg PO Q6H PRN PRN Reason: Pain, Mild (Pain Scale 1-3) Last Admin: 05/21/22 13:59 Dose: 650 mg Documented By: SINGH Apixaban (Apixaban 5 Mg Tablet) 5 mg PO BID [facility] Last Admin: 05/21/22 09:28 Dose: 5 mg Documented By: SINGH Azathioprine (Azathioprine 50 Mg Tablet) 50 mg PO TID [facility] Last Admin: 05/21/22 14:00 Dose: 50 mg Documented By: SINGH Dextrose (Dextrose 50 % 25 Gm/50 Ml Syringe) 25 gm IVPUSH Q15M PRN; Protocol PRN Reason: per Hypoglycemia Standing Ord. Last Admin: 05/20/22 08:29 Dose: 25 gm Documented By: JOHNNY-AZUL Docusate Sodium (Docusate Sodium 100 Mg Capsule) 100 mg PO DAILY PRN PRN Reason: Constipation Vancomycin HCl 500 mg/ Sodium (Chloride) 110 mls @ 110 mls/hr IV Q24H [facility] Last Infusion: 05/20/22 22:56 Dose: 0 mls/hr Documented By: UMM Ceftriaxone Sodium 1 gm/ (Sodium Chloride) 50 mls @ 100 mls/hr IV Q24H [facility] Last Infusion: 05/20/22 18:18 Dose: 0 mls/hr Documented By: UMM Dextrose (D5w) 1,000 mls @ 100 mls/hr IVCONT .Q10H [facility] Last Infusion: 05/21/22 14:04 Dose: 100 mls/hr Documented By: SINGH Insulin Human Lispro (Insulin Lispro 100 Unit/Ml 3 Ml Vial) 0 unit SUBCUT QIDACHS [facility]; Protocol Last Admin: 05/21/22 11:28 Dose: Not Given Documented By: SINGH Non-Admin Reason: No Insulin Coverage Mycophenolate Mofetil (Mycophenolate Mofetil 250 Mg Capsule) 500 mg PO BID [facility] Last Admin: 05/21/22 09:28 Dose: 500 mg Documented By: SINGH Ondansetron HCl (Ondansetron Hcl 4 Mg/2 Ml Vial) 4 mg IVPUSH Q8H PRN PRN Reason: Nausea and Vomiting Pharmacy Consult (Consult Rx Vancomycin Dosing) 1 each MISCELLANE DAILY PRN PRN Reason: Consult order Prednisone (Prednisone 20 Mg Tablet) 20 mg PO DAILY [facility] Last Admin: 05/21/22 09:28 Dose: 20 mg Documented By: SINGH Pyridostigmine [place] (Pyridostigmine [place] 60 Mg Tablet) 60 mg PO QID [facility] Last Admin: 05/21/22 14:00 Dose: 60 mg Documented By: SINGH Sodium Chloride (0.9 % Sodium Chloride Flush 3 Ml Syringe) 3 ml IVFLUSH QSHIFT [facility] Last Admin: 05/21/22 09:28 Dose: 3 ml Documented By: SINGH Labs CBC & Chem 7: 05/21/22 06:02 05/21/22 14:04 Labs: Laboratory Results - last 24 hr 05/20/22 05/20/22 05/21/22 16:37 20:18 06:02 MCV 90.3 MCH 28.3 MCHC 31.4 RDW 18.7 H Plt Count 232 MPV 9.2 L Absolute Nucleated RBC 0.000 Nucleated RBC % (auto) 0.0 Anion Gap Estim Creat Clear Calc Estimated GFR POC Glucose 251 H 179 H Random Glucose Calcium 05/21/22 05/21/22 05/21/22 06:02 07:28 11:22 MCV MCH MCHC RDW Plt Count MPV Absolute Nucleated RBC Nucleated RBC % (auto) Anion Gap 21 H Estim Creat Clear Calc 37.3 Estimated GFR 32 POC Glucose 89 121 H Random Glucose 95 Calcium 9.4 D 05/21/22 14:04 MCV MCH MCHC RDW Plt Count MPV Absolute Nucleated RBC Nucleated RBC % (auto) Anion Gap 20 Estim Creat Clear Calc 41.7 Estimated GFR 36 POC Glucose Random Glucose 149 H D Calcium 8.9 Microbiology Microbiology Results: Microbiology 05/19/22 18:40 Blood Culture - Preliminary Blood - Venous No growth after 24 hours. 05/19/22 18:32 Blood Culture - Preliminary Blood - Venous No growth after 24 hours. Assessment and Plan (1) Sepsis: Status: Acute (2) KIMBERLEY (acute kidney injury): Status: Acute (3) Cellulitis: Status: Acute (4) Toxic metabolic encephalopathy: Status: Acute (5) Hypernatremia: Status: Acute Plan 72-year-old male with past medical history of CHF, hypertension, diabetes, recently diagnosed DVT, presents to the hospital with complaints of poor oral intake found to have sepsis # sepsis 2/2 cellulitis open wound at the calf of his right lower extremity with erythema, edema, warmth and tenderness Erythema improving Continue IV antibiotics' Negative cultures # hypernatremia Sodium 151 this morning Secondary to decreased oral intake D5W Monitor BMP # toxic metabolic encephalopathy Secondary to infection, hyponatremia, kidney injury, HX TBI and ICU stay Recurrent orientation Treat underlying infection and kidney injury # KIMBERLEY Likely prerenal , CT negative for obstruction Improving to 1.8 from 3.5 on admission follow BMP avoid nephrotoxins # history of diastolic CHF Not in exacerbation # hypertension Restart her antihypertensive # diabetes low-dose sliding scale insulin diabetic diet # history of DVT continue Eliquis DVT prophylaxis: Eliquis The patient will need overnight hospital stay to continue treatment with IV antibiotics, reorientation for encephalopathy pending safe discharge plan Quality Stroke Does the patient have a stroke diagnosis?: No VTE Prior VTE?: No VTE Risk Level:: Medical - moderate - high VTE Device Contraindication: Treatment Not Indicated VTE Drug Contraindication: N/A - Med Ordered
[2022-05-21 15:37] VITALS: BP 179/82; PULSE 84; RESP 19; TEMP 37.3; O2SAT 91
[2022-05-21 16:03] LABS: Glucose, Whole Blood 182 mg/dL (60-115)
[2022-05-21 16:32] LABS: OBS Int Ctl Valid YES; OBS1 POSITIVE (NEGATIVE)
[2022-05-21] MEDS: Insulin Lispro 100 UNIT/ML 3 ML VIAL SUBCUT ×2 (17:07→21:24)
[2022-05-21] MEDS: cefTRIAXone sodium 1 GM in 0.9 % Sodium Chloride 50 ML IV (17:07)
[2022-05-21 18:28] VITALS: BP 171/78; PULSE 84; RESP 19; TEMP 37.4; O2SAT 91
[2022-05-21 18:55] LABS: Vancomycin Random 8.3 mcg/mL (15-20)
--- NOTE | 2022-05-21 19:17 | HE.PHANOTE ---
VANCO DOSING ADJUSTMENT BASED ON SCR OF 2.05 AND TROUGH OF 8.3 DOSE INCREASED TO 750Q 24. NEXT TROUGH 05/23 @1800
[2022-05-21 20:29] LABS: Glucose, Whole Blood 156 mg/dL (60-115)
--- NOTE | 2022-05-21 21:12 | CONS_ITS ---
DATE OF SERVICE: 05/21/2022 REASON FOR CONSULTATION: I was asked to see patient to assist in evaluation and management of patient's acute kidney injury as reflected by a creatinine of 3.57 on admission on May 19 with IV hydration that gradually improved. Creatinine is 2.05 today. His baseline creatinine is in the 0.8 to 1.1 range. HISTORY OF PRESENT ILLNESS: In summary, the patient is a 72-year-old gentleman with multiple chronic medical problems including a cardiac arrest 8 years ago with anoxic brain injury, type 2 diabetes, myasthenia gravis, hypertension, hyperlipidemia, chronic lower extremity edema recently diagnosed with DVT, who presents to the hospital out of source with history of poor p.o. intake, dehydration, and noted to have the acute kidney injury. Apparently, the patient has had a poor p.o. intake for the past several days if not longer. The patient is a poor historian. He was initially admitted to the ICU, given IV fluids, and his renal function has improved as mentioned above. The patient does note that he is thirsty presently and his serum sodium today is 151. PAST MEDICAL HISTORY: As noted above. There is also mention made of coronary artery disease with myocardial infarction in the past. MEDICATIONS: His medications on admission are listed as including Imuran along with pyridostigmine, Seroquel, Diovan, Neurontin, CellCept 500 twice a day, prednisone 10 mg once a day, Lasix, and glipizide were all listed. His current medications are listed include Eliquis, Mestinon, prednisone, Imuran, and CellCept. He is also getting vancomycin and ceftriaxone. D5W was started this morning. ALLERGIES: HE HAS NO KNOWN DRUG ALLERGIES. SOCIAL HISTORY: There is mention made of being a smoker. No alcohol or illicit drug use. FAMILY HISTORY: Noncontributory. REVIEW OF SYSTEMS: As noted above. PHYSICAL EXAMINATION: VITAL SIGNS: Blood pressure of 178/76. In reviewing his blood pressures, they have been as low as systolics in the 90s when he first was in the hospital. HEAD: Atraumatic and normocephalic. NECK: Supple. Mucous membranes are moist. LUNGS: Breath sounds bilaterally, diminished at the bases. CARDIAC: Regular rate and rhythm without rub. ABDOMEN: Obese, soft, nontender. EXTREMITIES: Show trace edema with redness on both legs and some superficial wounds noted on both sides. There is no asterixis. LABORATORY DATA: Labs from today show sodium 155, potassium 3.8, chloride 115, bicarb 19, BUN 36, creatinine 2.0. As mentioned, his serum creatinine has been as high as 3.57 on admission, come down with IV fluids. His baseline creatinine is in the 0.8 to 1.1 range. Hemoglobin 9, hematocrit 28.7, white blood cell count 9.9, platelet count 232. He had a urinalysis which showed 2+ protein, otherwise unremarkable. He had a CAT scan of the chest, abdomen, and pelvis; all without IV contrast. There was no hydronephrosis noted. IMPRESSION: 72-YEAR-OLD DIABETIC WITH MULTIPLE CHRONIC MEDICAL PROBLEMS AND ACUTE KIDNEY INJURY. 1. Acute kidney injury. Clinically, this is most consistent with renal hypoperfusion as reflected by improved renal function with IV fluids. Would anticipate continued renal recovery with IV fluids. We will check a urine studies to calculate fractional excretion of sodium. We will also look at his urine protein creatinine ratio. Obstruction is ruled out with the CAT scan. Other possibilities for acute kidney injury such as acute interstitial nephritis include acute glomerulonephritis seem less likely given his UA is not that impressive. 1. Hypernatremia. He is getting IV fluids for this in the form of D5W. 2. Immunosuppressive drugs. He is maintained on CellCept and Imuran and prednisone for his myasthenia gravis. If he has active infection, may need to reconsider holding the CellCept. SUGGESTIONS: At this time include the followin. Obtain urine studies to calculate fractional excretion of sodium. 2. Continue on D5W. Monitor serum sodium. 3. Continue to track renal function daily. 4. If active infection, may need to put CellCept on hold. We will follow the patient closely with the team. MD GRISELDA Brown/REAGAN / [phone]
[2022-05-21] MEDS: vancomycin HCL 750 MG in 0.9 % Sodium Chloride 250 ML 265 MG IV (21:25)
[2022-05-22] VITALS: BP 177/75; PULSE 95; RESP 16; TEMP 36.2; O2SAT 90
[2022-05-22 00:39] VITALS: O2SAT 93
[2022-05-22] MEDS: diphenhydrAMINE HCL 50 MG/ML VIAL 25 MG IVPUSH (03:39)
[2022-05-22 04:00] VITALS: BP 133/87; PULSE 94; RESP 20; TEMP 36.1; O2SAT 94
[2022-05-22] MEDS: Dextrose 5 % 1,000 ML 100 ML IVCONT (05:43)
[2022-05-22 06:55] LABS: Hematocrit 29.2 % (42.0-52.0); Mean Corpuscular HGB Conc 30.8 g/dl (31.0-36.0); Mean Corpuscular Hemoglobin 28.1 pg (27.0-33.0); Mean Corpuscular Volume 91.3 fL (80.0-98.0); Mean Platelet Volume 9.5 fL (9.4-12.4); Platelet Count 197 X10*3/uL (160-400); Red Cell Distribution Width 18.7 % (11.0-16.0); White Blood Count 6.6 X10*3/uL (4.8-10.8)
[2022-05-22 07:01] VITALS: BP 187/93; PULSE 91; RESP 18; TEMP 36.2; O2SAT 96
[2022-05-22 07:06] LABS: Anion Gap 17 (12-20); Blood Urea Nitrogen 24 mg/dL (9-16); Calcium 8.7 mg/dL (8.4-10.2); Carbon Dioxide 19 mmol/L (22-29); Chloride 114 mmol/L (96-108); Creatinine Clr Calc Pharmacy 53.1; Estimated Glomerular Filt Rate 48; Glucose Random 152 mg/dL (60-115); Potassium 3.7 mmol/L (3.3-5.1); Sodium 146 mmol/L (135-145)
[2022-05-22 07:31] LABS: Glucose, Whole Blood 162 mg/dL (60-115)
[2022-05-22] MEDS: mycophenolate mofetiL 250 MG CAPSULE 500 MG PO (08:00)
[2022-05-22] MEDS: pyRIDostigmine bromide 60 MG TABLET PO ×2 (08:03→13:08)
[2022-05-22] MEDS: predniSONE 20 MG TABLET PO (08:03)
[2022-05-22] MEDS: Apixaban 5 MG TABLET PO (08:03)
[2022-05-22] MEDS: azaTHIOprine 50 MG TABLET PO (08:03)
[2022-05-22] MEDS: Insulin Lispro 100 UNIT/ML 3 ML VIAL SUBCUT (08:04)
[2022-05-22] MEDS: Acetaminophen 325 MG TABLET 650 MG PO (08:06)
--- NOTE | 2022-05-22 08:22 | HE.PHANOTE ---
RE BRANDON INCREASING DOSE TO 1GRAM Q24 IN SETTING OF IMPROVING RENAL FUNCTION; NEXT TROUGH 05/23 @1800
[2022-05-22] MEDS: Valsartan 80 MG TABLET PO (09:04)
[2022-05-22] MEDS: Loperamide HCl 2 MG CAPSULE PO (09:04)
[2022-05-22] MEDS: Furosemide 40 MG TABLET 80 MG PO (09:04)
[2022-05-22] MEDS: amLODIPine Besylate 5 MG TABLET PO (09:04)
[2022-05-22] MEDS: Gabapentin 300 MG CAPSULE PO (09:04)
--- NOTE | 2022-05-22 11:33 | MHC.CM.PN ---
pt is dcd today leaving at 1 by amb lobo will meet pt at the house amedysis notifed of dc
[2022-05-22 11:38] LABS: Glucose, Whole Blood 251 mg/dL (60-115)
[2022-05-22 12:00] VITALS: BP 162/74; PULSE 84; RESP 20; TEMP 36.7; O2SAT 97
--- NOTE | 2022-05-22 13:04 | P.DS_ITS ---
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 Patient reports that he has not been eating for the past several days.? He is not forthcoming with information but states that he has no appetite and has not been eating well.? He is also pointing to his leg stating that he is has lower extremity edema and redness since he 8 years ago, but did feel that they were worse specially on the right.? He does not tell me what the time.? Of them getting worse is.? He denies any chest pain, no shortness of breath, no abdominal pain nausea or vomiting, no diarrhea constipation, no urinary symptoms.? On my exam patient appears dyspnea, when asked him if he is short of breath he reports that he is not short of breath more than his usual baseline.? He denies any orthopnea or PND. On arrival to the ED patient initially had blood pressure of 99/45, all other vitals stable Labs are significant for WBC count 13, hemoglobin of 9.4, hematocrit of 29.3, INR of 1.3, BUN of 54, creatinine of 3.57 with a baseline of 0.92, lactic acid of 3.9, AST of 47 which is chronically elevated, albumin of 3.3, COVID-19 negative Chest x-ray shows no evidence of CHF or pneumonia Hospital course The patient was admitted to the hospital for evaluation of decreased oral intake and increase right lower extremity erythema. Found to be septic as a result of right lower extremity cellulitis. Admitted primary to the medical floors but noticed at the same night that his blood pressure is 2 solved and did not respond to the IV fluid. Admitted to ICU for overnight for possible pressors which were not used as the patient responded to albumin, IV fluids and steroid. Transferred back to the medical floor where he was treated with vancomycin ceftriaxone for the infection. Will be discharged home on p.o. doxycycline and Ceftin with plan for visiting nurses to follow-up with him. Mental status started to improve after the patient was transferred out of ICU which believed to be a result of multiple etiologies like kidney injury, sepsis, hypernatremia with his baseline history of TBI. Improved back to baseline mentation but physically could not ambulate as much with physical therapy who recommended long-term care VS 24 hours home care. kidney function was altered at time of presentation with creatinine of 3.5. Improved with IV fluid down to 1.4 at the day of discharge close to his normal baseline. Noted to developed hypernatremia secondary to decreased oral intake which responded well to D5 treatment. Patient advised to drink plenty of fluids and increase his diet intake at time of discharge. Kidney function to be rechecked next week. Drink plenty of fluid daily, target 1.5 L Continue doxycycline and Ceftin as prescribed Repeat kidney function next week Follow-up with PCP as scheduled Time Spent with Patient Time attestation: Total time spent providing and/or coordinating discharge services: Discharge coordination time: Greater than 30 minutes Quality: Safe Use of Opioids Does Pt have an Active Cancer Diagnosis on the Problem List?: No Quality: Stroke Does the patient have a stroke diagnosis?: No Physical Exam Vital Signs: Vital Signs: Last Vital Signs Temp 98.1 F 05/22/22 12:00 Pulse 84 05/22/22 12:00 Resp 20 05/22/22 12:00 BP 162/74 H 05/22/22 12:00 Pulse Ox 97 05/22/22 12:00 O2 Del Method 05/22/22 12:00 O2 Flow Rate 3 05/22/22 12:00 BMI result Body Mass Index 37.8 Const: Other: Constitutional : Awake, interactive, not in distress Neck : Normal inspection, Supple Cardiovascular : RRR, no JVP, trace bilateral lower extremity edema Respiratory : good bilateral air entry, basal fine crackles, no wheezes or rhonchi Gastrointestinal: soft, lax, Normal bowel sounds, Non tender Skin : Warm, Dry, mild erythema with no drainage in both lower extremities more noted on the right leg, sensitive to touch but no tenderness Neurological : Alert & oriented to self and place, No focal deficit DS: Data Data Completed and Pending Labs on day of discharge: Laboratory Results - last 24 hr 05/21/22 05/21/22 05/21/22 14:04 15:54 16:16 WBC RBC Hgb Hct MCV MCH MCHC RDW Plt Count MPV Absolute Nucleated RBC Nucleated RBC % (auto) Sodium 147 H Potassium 3.4 Chloride 112 H Carbon Dioxide 18 L Anion Gap 20 BUN 34 H Creatinine 1.83 H Estim Creat Clear Calc 41.7 Estimated GFR 36 POC Glucose 182 H Random Glucose 149 H D Calcium 8.9 Stool Occult Blood POSITIVE Random Vancomycin 05/21/22 05/21/22 05/22/22 18:03 20:20 06:24 WBC 6.6 RBC 3.20 L Hgb 9.0 L Hct 29.2 L MCV 91.3 MCH 28.1 MCHC 30.8 L RDW 18.7 H Plt Count 197 MPV 9.5 Absolute Nucleated RBC 0.000 Nucleated RBC % (auto) 0.0 Sodium Potassium Chloride Carbon Dioxide Anion Gap BUN Creatinine Estim Creat Clear Calc Estimated GFR POC Glucose 156 H Random Glucose Calcium Stool Occult Blood Random Vancomycin 8.3 L 05/22/22 05/22/22 05/22/22 06:24 07:22 11:27 WBC RBC Hgb Hct MCV MCH MCHC RDW Plt Count MPV Absolute Nucleated RBC Nucleated RBC % (auto) Sodium 146 H Potassium 3.7 Chloride 114 H Carbon Dioxide 19 L Anion Gap 17 BUN 24 H Creatinine 1.44 H Estim Creat Clear Calc 53.1 Estimated GFR 48 POC Glucose 162 H 251 H Random Glucose 152 H Calcium 8.7 Stool Occult Blood Random Vancomycin Preliminary micro results at discharge 05/19/22 18:40 Blood Culture - Preliminary Blood - Venous No growth after 48 hours. 05/19/22 18:32 Blood Culture - Preliminary Blood - Venous No growth after 48 hours. Imaging Chest x-ray: Radiologist's impression: ITS Impressions Chest X-Ray 05/19/22 17:52 IMPRESSION: No acute intrathoracic disease or convincing evidence of CHF. Chronic blunting of the left costophrenic angle. Abdomen/Pelvis CT 05/20/22 00:00 IMPRESSION: 1. No acute abnormalities are identified in the chest, abdomen, and pelvis. No evidence of obstructive uropathy. No findings to indicate a cause of acute renal insufficiency. 2. Moderate pulmonary emphysema with peripheral interstitial fibrotic changes. 3. Hepatic steatosis. 4. Cholelithiasis without evidence of acute cholecystitis. 5. Marked sigmoid diverticulosis without evidence of acute diverticulitis. Chest CT 05/20/22 00:00 IMPRESSION: 1. No acute abnormalities are identified in the chest, abdomen, and pelvis. No evidence of obstructive uropathy. No findings to indicate a cause of acute renal insufficiency. 2. Moderate pulmonary emphysema with peripheral interstitial fibrotic changes. 3. Hepatic steatosis. 4. Cholelithiasis without evidence of acute cholecystitis. 5. Marked sigmoid diverticulosis without evidence of acute diverticulitis. Discharge Plan Discharge Anticipated Discharge Date/Time: 05/22/22 12:55 Patient Disposition: Home Health Service Discharge Diagnosis: Severe sepsis, cellulitis Natremia Toxic metabolic encephalopathy Referrals: [facility] [Other] - 1 Week Justino Lara MD [Primary Care Provider] - 1 Week Discharge Medications: New doxycycline monohydrate 100 mg capsule 100 mg PO BID Qty: 10 0RF cefuroxime axetil 500 mg tablet 500 mg PO BID Qty: 10 0RF Continued rosuvastatin 20 mg tablet 20 mg PO DAILY 90 Days Qty: 90 0RF quetiapine 25 mg tablet 1 tab PO BEDTIME valsartan 80 mg tablet 1 tab PO DAILY azathioprine [Imuran] 50 mg tablet 50 mg PO TID pyridostigmine bromide 60 mg tablet 1 tab PO QID loperamide 2 mg capsule 2 mg PO BID@0800,1600 mycophenolate mofetil [CellCept] 500 mg tablet 1 tab PO BID@0800,1600 gabapentin 300 mg capsule 1 cap PO BID@0800,1600 clotrimazole 1 % cream 1 appl topical BID PRN (Reason: TOE, RASH) prednisone 10 mg tablet 25 mg PO DAILY furosemide 40 mg tablet 80 mg PO DAILY triamcinolone acetonide 0.1 % cream 1 appl topical BID PRN (Reason: RASH, FOOT) mirtazapine 30 mg tablet 1 tab PO BEDTIME albuterol sulfate [Ventolin HFA] 90 mcg/actuation HFA aerosol inhaler 2 puff inhalation Q4H PRN (Reason: Wheezing) amlodipine 5 mg Tablet 5 mg PO DAILY Qty: 30 0RF Protocol: Hold for SBP< HOLD for SBP < : 90 glipizide 5 mg tablet 10 mg PO BID@0800,1600 Eliquis 5 mg tablet 5 mg PO BID Qty: 90 0RF Rx Instructions: Take 10mg(2 tabs) twice daily until 04/28; starting 04/29 take 5mg(1 tab) twice daily Discharge Orders: Discharge Order (Routine); Ordered 05/22/22 Ordered By: Johanne Blanco Diet: Advance to usual diet Activity on Discharge: As tolerated Stand Alone Forms: Patient Portal Discharge page Other Ambulatory Orders: Basic Metabolic Panel (Routine) Timeframe: 1 Week Facility: [facility] - Location: Laboratory Ordered By: Johanne Blanco Care Plan Goals: Read below Health Concerns: Read below Plan of Treatment: Read below Assessment: You were admitted to the hospital for evaluation of decreased oral intake and altered mentation. Found to be septic as a result skin infection treated with IV antibiotics but required ICU admission for altered mentation and low blood pressure responded well to IV fluids. Noted to have elevated sodium from dehydration that corrected with fluid usage. Kidney function improved back to baseline with rehydration. Drink plenty of fluid daily, target 1.5 L Continue doxycycline and Ceftin as prescribed Repeat kidney function next week Follow-up with PCP as scheduled
== END 2022-05-22 14:10 | disposition home health service (06) | DRG 871 ==
LOC: HO.ED 17:14 → HO.EDOVER 21:35 → HO.ICU 05-20 03:14 → HO.IMC 05-20 15:07
PROVIDERS: Internal Medicine Pulmonary Disease; Registered Nurse Community Health; Admitting Provider Internal Medicine; Emergency Provider Internal Medicine; PCP Internal Medicine; Visit Provider Student in an Organized Health Care Education/Training Program
DX: A41.9 Sepsis, unspecified organism (principal); G92.8 Other toxic encephalopathy; R65.21 Severe sepsis with septic shock; L03.115 Cellulitis of right lower limb; N17.9 Acute kidney failure, unspecified; E87.20 Acidosis, unspecified; E87.0 Hyperosmolality and hypernatremia; I50.32 Chronic diastolic (congestive) heart failure; D84.821 Immunodeficiency due to drugs; Z66 Do not resuscitate; I11.0 Hypertensive heart disease with heart failure; E89.5 Postprocedural testicular hypofunction; Z20.822 Contact with and (suspected) exposure to COVID-19; Z86.718 Personal history of other venous thrombosis and embolism; Z86.74 Personal history of sudden cardiac arrest; Z87.820 Personal history of traumatic brain injury; Z79.01 Long term (current) use of anticoagulants; Z79.52 Long term (current) use of systemic steroids; Z79.84 Long term (current) use of oral hypoglycemic drugs; Z79.899 Other long term (current) drug therapy
CPT/HCPCS: 36415; 71045; 71250; 74176; 80048; 80053; 80202; 81001; 82040; 82272; 82947; 83605; 83735; 83880; 84100; 85025; 85027; 85610; 87040; 87635; 93005; 97162; 99285; J0696; J1200; J3370; P9047

== ENCOUNTER 2022-06-06 02:06 | Inpatient (IN) | payer MEDICARE, MEDICAID, SELFPAY ==
[2022-06-06] VITALS (8 sets, daily range): BP systolic 95–140; BP diastolic 40–98; PULSE 74–97; RESP 16–20; TEMP 36–37.2; O2SAT 95–99; BMI 32.0
[2022-06-06 03:39] LABS: MANUAL DIFF FLAG NO
[2022-06-06 03:43] LABS: Basophils Percent Auto 0.1 % (0-2); Eosinophils Percent Auto 0.3 % (0-4); Hematocrit 33.3 % (42.0-52.0); Hemoglobin 10.6 g/dl (14.0-18.0); Imm Gran Abs Auto 0.11 X10*3/uL (0.00-0.03); Imm Gran Pct Auto 0.9 % (0.0-0.4); Lymphocytes Absolute Auto 1.1 X10*3/uL (1.2-4.9); Lymphocytes Percent Auto 9.1 % (20-40); Mean Corpuscular HGB Conc 31.8 g/dl (31.0-36.0); Mean Corpuscular Hemoglobin 28.1 pg (27.0-33.0); Mean Corpuscular Volume 88.3 fL (80.0-98.0); Mean Platelet Volume 9.6 fL (9.4-12.4); Monocytes Absolute Auto 0.7 X10*3/uL (0.1-1.2); Monocytes Percent Auto 6.2 % (2-11); NRBC Pct Auto 0.2 /100WBC (0.0-0.2); Neutrophils Absolute Auto 9.7 x10*3/uL (2.0-8.3); Neutrophils Percent Auto 83.4 % (45-73); Platelet Count 260 X10*3/uL (160-400); Red Blood Count 3.77 X10*6/uL (4.60-5.80); Red Cell Distribution Width 18.5 % (11.0-16.0); White Blood Count 11.6 X10*3/uL (4.8-10.8)
[2022-06-06 04:00] LABS: Lactic Acid 2.3 mmol/L (0.5-2.0)
[2022-06-06 04:04] LABS: Alanine Aminotransferase 47 U/L (0-40); Albumin Level 3.9 g/dL (3.5-5.0); Alkaline Phosphatase 93 U/L (39-117); Anion Gap 19 (12-20); Aspartate Amino Transferase 50 U/L (5-37); Bilirubin Total 0.5 mg/dL (0.0-1.0); Blood Urea Nitrogen 48 mg/dL (9-16); Calcium 9.1 mg/dL (8.4-10.2); Carbon Dioxide 23 mmol/L (22-29); Chloride 98 mmol/L (96-108); Creatinine Clr Calc Pharmacy 25.5; Estimated Glomerular Filt Rate 22; Glucose Random 60 mg/dL (60-115); Potassium 3.8 mmol/L (3.3-5.1); Sodium 136 mmol/L (135-145); Total Protein 6.4 g/dL (6.5-8.0)
[2022-06-06 05:36] LABS: Reflex Lactate? Lactic Acid Added
--- NOTE | 2022-06-06 05:48 | ED.WEAKNESS ---
HPI - Weakness General Chief complaint: Wound/Laceration Stated complaint: BUTTOCK PAIN Time Seen by Provider: 06/06/22 05:30 Source: patient, EMS and RN notes reviewed Mode of arrival: EMS Limitations: language barrier (Patient has traumatic brain injury secondary to cardiac arrest with difficulty with speech) History of Present Illness HPI Narrative: 72-year-old male who presents emergency department for evaluation of weakness. Information mainly came from the paramedics and the nursing notes. Patient was complaining of pain in his coccyx region and was noted to have stage II decubital ulcers by nursing staff. Patient reported that he was getting progressively weaker and was having difficulty standing. He normally can ambulate with a walker but over the past several days he has not been able to get out of his reclining chair at home. Paramedics report that the patient was very weak and could barely stand and pivot to get on the stretcher. The patient required 2 person assist to get him into a standing position as well. The patient was hospitalized 05/19/2022 until 05/22/2022 with sepsis secondary to right lower extremity cellulitis and acute kidney injury. Patient's discharge creatinine was 1.44. Patient states that he has been drinking fluid but has had a diminished appetite. He denied fever, chills, chest pain, shortness of breath. Related Data Home Medications Medication Instructions Recorded Confirmed azathioprine 50 mg tablet (Imuran) 50 mg PO TID 06/02/20 05/20/22 pyridostigmine bromide 60 mg tablet 1 tab PO QID 06/02/20 05/20/22 quetiapine 25 mg tablet 1 tab PO BEDTIME 06/02/20 05/20/22 valsartan 80 mg tablet 1 tab PO DAILY 06/02/20 05/20/22 clotrimazole 1 % topical cream 1 appl topical BID PRN TOE, RASH 08/24/21 05/20/22 gabapentin 300 mg capsule 1 cap PO BID@0800,1600 08/24/21 05/20/22 loperamide 2 mg capsule 2 mg PO BID@0800,1600 08/24/21 05/20/22 mycophenolate mofetil 500 mg 1 tab PO BID@0800,1600 08/24/21 05/20/22 tablet (CellCept) prednisone 10 mg tablet 25 mg PO DAILY 11/30/21 05/20/22 albuterol sulfate 90 mcg/actuation 2 puff inhalation Q4H PRN Wheezing 01/23/22 05/20/22 aerosol inhaler (Ventolin HFA) furosemide 40 mg tablet 80 mg PO DAILY 01/23/22 05/20/22 mirtazapine 30 mg tablet 1 tab PO BEDTIME 01/23/22 05/20/22 triamcinolone acetonide 0.1 % 1 appl topical BID PRN RASH, FOOT 01/23/22 05/20/22 topical cream glipizide 5 mg tablet 10 mg PO BID@0800,1600 04/21/22 05/20/22 Previous Rx's Medication Instructions Recorded amlodipine 5 mg tablet 5 mg PO DAILY #30 tabs 03/29/22 apixaban 5 mg tablet (Eliquis) 5 mg PO BID #90 tabs 04/22/22 rosuvastatin 20 mg tablet 20 mg PO DAILY 90 days #90 tabs 05/15/22 cefuroxime axetil 500 mg tablet 500 mg PO BID #10 tabs 05/22/22 doxycycline monohydrate 100 mg 100 mg PO BID #10 caps 05/22/22 capsule Allergies Allergy/AdvReac Type Severity Reaction Status Date / Time No Known Allergies Allergy Verified 06/06/22 02:29 [No Known Allergies*] Review of Systems Review of Systems: Yes all other systems are reviewed and are negative [facility] Past Medical History [facility] Narrative: Social history: Patient states he lives at home with his family. He denies tobacco, alcohol and drug use. Medical History Aspiration pneumonia CHF (congestive heart failure) Diabetes Diabetes mellitus, type 2 DVT (deep venous thrombosis) DVT (deep venous thrombosis) Edema Erythema of lower extremity Hypercholesteremia Hypertension Intractable nausea and vomiting Leg edema Myasthenia gravis Myasthenia gravis Myasthenia gravis Myocardial infarction Obesity TBI (traumatic brain injury) Family History Family History Mother No problems noted. Father No problems noted. Other No family history of coronary artery disease Social History Social History Household Members: Family Housing: House Do you presently have visiting nurse or other home services: Yes Unable to assess alcohol history related to: Unable to respond and Unknown Alcohol intake: unknown Patient Tobacco Use Status: Former Tobacco user Tobacco use type: Cigarette Second Hand Smoke Exposure: Yes Substance Use Type: Former Substance User Advance Directives: Yes Advance Directives on File: Yes Advance Directives Date on File: 05/05/21 service: No Current occupational status: retired Physical Exam Vital Signs: Vital Signs: Last Vital Signs Temp 97.6 F 06/06/22 02:17 Pulse 84 06/06/22 05:29 Resp 18 06/06/22 05:29 BP 106/51 L 06/06/22 05:29 Pulse Ox 95 06/06/22 05:29 O2 Del Method 06/06/22 05:29 BMI result Body Mass Index 32.0 Const: Other: Awake, alert, male patient, oriented to person and place, patient has difficulty understanding some speech but seems to understand better if you speaks slowly. He often responds with a stuttering voice and sometimes gets confused when he responds. This is consistent with his traumatic brain injury. Orientation/consciousness: oriented to person and oriented to place HEENT: Head: Yes normal to inspection, Yes normocephalic and Yes atraumatic Ears: external ears normal General nose exam: Normal external nose present Face and sinus: Yes normal facial exam Mouth: Normal oral and palatal mucosa present Throat: Yes posterior oropharynx normal Eyes: General: appearance normal, both eyes and all related structures Pupils: Equal, round and reactive pupils present Neck: Neck: Yes normal visual inspection, Yes no lymphadenopathy, Yes trachea midline and Yes supple Chest: Chest palpation & inspection: normal inspection of the chest and normal palpation of entire chest wall Resp: Effort & Inspection: normal respiratory effort and able to speak in complete sentences Auscultation: clear to auscultation bilaterally Cardio: Rate: regular rate Rhythm: regular rhythm Heart sounds: S1 normal heart sound present, S2 normal heart sound present and no murmurs GI: Inspection: Yes normal to inspection Palpation (GI): Soft to palpation, nontender and no guarding Auscultation: normal bowel sounds : General: Yes no CVA tenderness Back/Spine/Pelvis: Back: no CVA tenderness Skin: Other: Photos were taken by the nurse using a digital camera, the date on the photos are inaccurate and the photos were taking today. The patient has intertriginous fungal infection of his groin. He has new appearing decubital ulcers with no evidence of cellulitis. He has erythema to his lower extremities which is more consistent with chronic dermatitis as opposed to cellulitis. Neuro: General: oriented to person and oriented to place Cranial nerves: Yes CN's II-XII intact bilaterally and Yes Equal, round and reactive pupils present Cognition (Neuro): normal cognition Motor exam (neuro): Other motor observations present (Moves all extremities but does appear weak, patient had difficulty standing) Extrem: Other: Trace pitting edema bilaterally symmetric, erythema to lower extremities please see photos and skin exam Psych: Appearance: grossly normal Affect: normal affect Attitude: cooperative Course Course Course Narrative: 72-year-old male brought to the emergency department by ambulance for evaluation of pain in his coccygeal area with increased weakness over the last several days, patient was able to walk with a walker but now has been confined to the is recliner chair at home secondary to his weakness. Patient's blood pressures were low at 1 15/55 and 106/51 otherwise vital signs were unremarkable. Patient does have weakness of his lower extremities. He has erythema to his lower extremities but I do not think that he has cellulitis. He has erythema in his groin area which is consistent with fungal infection. He has sacral skin breakdown which I believe may be new and it may be secondary to him being confined to his recliner. Laboratory evaluation was ordered. 0606: Laboratory evaluation: Elevated WBC 20591. Anemia with an H&H of 10.6 and 33.3-this is chronic. Patient's BUN and creatinine are elevated above his baseline at 48 and 2.85 with a BUN creatinine on 05/22/2020 of 24 and 1.44. Lactate is elevated at 2.3. AST and ALT elevated at 50 and 47. At this time, I do not have a clear etiology for the patient's weakness is unclear, he does have acute kidney injury therefore I will add a CK to rule out rhabdomyolysis. Patient was ordered to get normal saline IV x1 L. discuss admission with the covering hospitalist. 0722: I did discuss this patient with the covering hospitalist Dr. Richard and Dr. Gómez and the patient will be admitted to the hospital service for further treatment. The patient's repeat lactate did improved to 1.3 and I do not think that the elevated lactic acid is due to sepsis but is rather due to starvation ketosis. Medications Administered Discontinued Medications Generic Name Dose Route Start Last Admin Trade Name Gerard PRN Reason Stop Dose Admin Sodium Chloride 1,000 mls @ 999 mls/hr 06/06/22 06:09 06/06/22 06:19 Ns IV 06/06/22 07:09 999 mls/hr .Q1H1M STA Administration MDM - Weakness Lab Data Result diagrams: 06/06/22 03:32 06/06/22 03:32 Labs: Lab Results 06/06/22 06/06/22 06/06/22 Range/Units 03:32 03:32 03:32 WBC 11.6 H (4.8-10.8) X10*3/uL RBC 3.77 L (4.60-5.80) X10*6/uL Hgb 10.6 L (14.0-18.0) g/dl Hct 33.3 L (42.0-52.0) % MCV 88.3 (80.0-98.0) fL MCH 28.1 (27.0-33.0) pg MCHC 31.8 (31.0-36.0) g/dl RDW 18.5 H (11.0-16.0) % Plt Count 260 D (160-400) X10*3/uL MPV 9.6 (9.4-12.4) fL Immature Gran % (Auto) 0.9 H (0.0-0.4) % Neut % (Auto) 83.4 H (45-73) % Lymph % (Auto) 9.1 L (20-40) % [place] % (Auto) 6.2 (2-11) % Eos % (Auto) 0.3 (0-4) % Baso % (Auto) 0.1 (0-2) % Lymph # (Auto) 1.1 L (1.2-4.9) X10*3/uL [place] # (Auto) 0.7 (0.1-1.2) X10*3/uL Eos # (Auto) 0.0 (0.0-0.4) X10*3/uL Baso # (Auto) 0.0 (0.0-0.2) X10*3/uL Abs Immat Gran (auto) 0.11 H (0.00-0.03) X10*3/uL Absolute Neuts (auto) 9.7 H (2.0-8.3) x10*3/uL Absolute Nucleated RBC 0.020 H (0.0-0.012) X10*3/uL Nucleated RBC % (auto) 0.2 (0.0-0.2) /100WBC Sodium 136 (135-145) mmol/L Potassium 3.8 (3.3-5.1) mmol/L Chloride 98 (96-108) mmol/L Carbon Dioxide 23 (22-29) mmol/L Anion Gap 19 (12-20) BUN 48 H (9-16) mg/dL Creatinine 2.84 H (0.5-1.4) mg/dL Estim Creat Clear Calc 25.5 Estimated GFR 22 Random Glucose 60 (60-115) mg/dL Lactic Acid 2.3 H* (0.5-2.0) mmol/L Lactic Acid F/U @ 2Hr (0.5-2.0) mmol/L Calcium 9.1 (8.4-10.2) mg/dL Total Bilirubin 0.5 (0.0-1.0) mg/dL AST 50 H (5-37) U/L ALT 47 H (0-40) U/L Alkaline Phosphatase 93 (39-117) U/L Total Creatine Kinase 34 L D (38-174) U/L Total Protein 6.4 L (6.5-8.0) g/dL Albumin 3.9 (3.5-5.0) g/dL 06/06/22 Range/Units 06:21 WBC (4.8-10.8) X10*3/uL RBC (4.60-5.80) X10*6/uL Hgb (14.0-18.0) g/dl Hct (42.0-52.0) % MCV (80.0-98.0) fL MCH (27.0-33.0) pg MCHC (31.0-36.0) g/dl RDW (11.0-16.0) % Plt Count (160-400) X10*3/uL MPV (9.4-12.4) fL Immature Gran % (Auto) (0.0-0.4) % Neut % (Auto) (45-73) % Lymph % (Auto) (20-40) % [place] % (Auto) (2-11) % Eos % (Auto) (0-4) % Baso % (Auto) (0-2) % Lymph # (Auto) (1.2-4.9) X10*3/uL [place] # (Auto) (0.1-1.2) X10*3/uL Eos # (Auto) (0.0-0.4) X10*3/uL Baso # (Auto) (0.0-0.2) X10*3/uL Abs Immat Gran (auto) (0.00-0.03) X10*3/uL Absolute Neuts (auto) (2.0-8.3) x10*3/uL Absolute Nucleated RBC (0.0-0.012) X10*3/uL Nucleated RBC % (auto) (0.0-0.2) /100WBC Sodium (135-145) mmol/L Potassium (3.3-5.1) mmol/L Chloride (96-108) mmol/L Carbon Dioxide (22-29) mmol/L Anion Gap (12-20) BUN (9-16) mg/dL Creatinine (0.5-1.4) mg/dL Estim Creat Clear Calc Estimated GFR Random Glucose (60-115) mg/dL Lactic Acid (0.5-2.0) mmol/L Lactic Acid F/U @ 2Hr 1.3 (0.5-2.0) mmol/L Calcium (8.4-10.2) mg/dL Total Bilirubin (0.0-1.0) mg/dL AST (5-37) U/L ALT (0-40) U/L Alkaline Phosphatase (39-117) U/L Total Creatine Kinase (38-174) U/L Total Protein (6.5-8.0) g/dL Albumin (3.5-5.0) g/dL Discharge Plan Discharge Patient Disposition: Admitted As Inpatient Prescriptions: No Action rosuvastatin 20 mg tablet 20 mg PO DAILY 90 Days Qty: 90 0RF quetiapine 25 mg tablet 1 tab PO BEDTIME valsartan 80 mg tablet 1 tab PO DAILY azathioprine [Imuran] 50 mg tablet 50 mg PO TID pyridostigmine bromide 60 mg tablet 1 tab PO QID doxycycline monohydrate 100 mg capsule 100 mg PO BID Qty: 10 0RF cefuroxime axetil 500 mg tablet 500 mg PO BID Qty: 10 0RF loperamide 2 mg capsule 2 mg PO BID@0800,1600 mycophenolate mofetil [CellCept] 500 mg tablet 1 tab PO BID@0800,1600 gabapentin 300 mg capsule 1 cap PO BID@0800,1600 clotrimazole 1 % cream 1 appl topical BID PRN (Reason: TOE, RASH) prednisone 10 mg tablet 25 mg PO DAILY furosemide 40 mg tablet 80 mg PO DAILY triamcinolone acetonide 0.1 % cream 1 appl topical BID PRN (Reason: RASH, FOOT) mirtazapine 30 mg tablet 1 tab PO BEDTIME albuterol sulfate [Ventolin HFA] 90 mcg/actuation HFA aerosol inhaler 2 puff inhalation Q4H PRN (Reason: Wheezing) amlodipine 5 mg Tablet 5 mg PO DAILY Qty: 30 0RF Protocol: Hold for SBP< HOLD for SBP < : 90 glipizide 5 mg tablet 10 mg PO BID@0800,1600 Eliquis 5 mg tablet 5 mg PO BID Qty: 90 0RF Rx Instructions: Take 10mg(2 tabs) twice daily until 04/28; starting 04/29 take 5mg(1 tab) twice daily
--- NOTE | 2022-06-06 05:59 | PC.NURSE ---
Pt arrived to our facility with stage 2 decubitus ulcers on right and left buttocks and on the coccyx region. Wounds were cleaned and dressing placed over the wounds. Pictures were taken with the digital camera in [facility] but unable to print the photos due to lack of ink in the printer. Provider reviewed photos and documented the pictures in provider's report.
[2022-06-06] MEDS: 0.9 % Sodium Chloride 1,000 ML 999 ML IV (06:19)
[2022-06-06 06:37] LABS: ~Lactic Acid-LAB USE ONLY 1.3 mmol/L (0.5-2.0)
[2022-06-06 07:02] LABS: Influenza A PCR NEGATIVE (Negative); Influenza B PCR NEGATIVE (Negative); Resp Syncy Virus RNA Qual PCR NEGATIVE (Negative); SARS COV2 PCR INHOUSE NEGATIVE (Negative)
--- NOTE | 2022-06-06 09:59 | PC.NURSE ---
pt woke up, alert and oriented, skin pwd, respirations even and unlabored, pt is speaking with a studder, pt denies any pain at this time, lower extremities redish and the left inner thigh with a dime size sore as well. vs stable
--- NOTE | 2022-06-06 10:20 | P.HPHOSP_ITS ---
History of Present Illness Date of Service: 06/06/22 Attending physician on admission: Jose Orantes Chief Complaint: generalized weakness 72-year-old gentleman with past medical history of anoxic brain injury post cardiac arrest 8 years ago, type 2 diabetes mellitus, myasthenia gravis, hypertension, hyperlipidemia, chronic bilateral lower extremity edema and DVT, recently discharged from [facility] on 05/22 after being treated for hypotension requiring overnight stay at ICU, lower extremity cellulitis, and acute kidney injury, during that hospitalization patient was evaluated by physical therapy they recommended long-term care versus 24 hour home care patient was discharged home with home health services according to patient he has been unable to ambulate for last 3 days and has been sitting on recliner, family has been helping him, patient has speech impairment due to his traumatic brain injury therefore unable to provide detailed history but according to him he was unable to get up from the toilet seat family tried helping him he was unable to stand up and due to ongoing generalized weakness he was sent to [facility] patient denies fever chills, denies lightheadedness, headache or dizziness, he always feels cold, he denies any back pain , denies any head trauma or fall, he denies urinary symptoms of urgency frequency, denies nausea vomiting abdominal pain or diarrhea he moves his bowels daily and at times twice, in the emergency room workup revealed an elevated creatinine of 2.85 that bumped from 1.44 on 05/22/2022, lactic acid is elevated at 2.3, that improved with IV fluid mildly elevated AST and ALT of 50 and 47, his examination reveals significant bilateral buttock stage II ulcer, and groin rash. Review of Systems Review of Systems: General no headache no dizziness no fever chills. CVS no chest pain, no palpitation. Respiratory no cough, no sob. Gastrointestinal no nausea. no vomiting, no abdominal pain musculoskeletal no pain skin chronic bilateral lower extremity dermatitis Yes all other systems are reviewed and are negative [facility] Medical History Aspiration pneumonia CHF (congestive heart failure) Diabetes Diabetes mellitus, type 2 DVT (deep venous thrombosis) DVT (deep venous thrombosis) Edema Erythema of lower extremity Hypercholesteremia Hypertension Intractable nausea and vomiting Leg edema Myasthenia gravis Myasthenia gravis Myasthenia gravis Myocardial infarction Obesity TBI (traumatic brain injury) Family History Mother No problems noted. Father No problems noted. Other No family history of coronary artery disease Social History Household Members: Family Housing: House Do you presently have visiting nurse or other home services: Yes Unable to assess alcohol history related to: Unable to respond and Unknown Alcohol intake: unknown Patient Tobacco Use Status: Former Tobacco user Tobacco use type: Cigarette Smoked in Last 30 Days: No Second Hand Smoke Exposure: Yes Use of substances other than those prescribed or required for medical reasons: No Substance Use Type: Former Substance User Advance Directives: Yes Advance Directives on File: Yes Advance Directives Date on File: 05/05/21 service: No Current occupational status: retired [employer] Allergies Allergy/AdvReac Type Severity Reaction Status Date / Time No Known Allergies Allergy Verified 06/06/22 02:29 [No Known Allergies*] Active Medications: Current Medications Pharmacy Consult (Consult Rx Perform Med Rec) 1 each MISCELLANE ONCE PRN PRN Reason: Consult order Sodium Chloride (0.9 % Sodium Chloride Flush 3 Ml Syringe) 3 ml IVFLUSH [facility] Home Medications Medication Instructions Recorded Confirmed Last Taken Type azathioprine 50 mg tablet (Imuran) 50 mg PO TID 06/02/20 06/06/22 05/19/22 History pyridostigmine bromide 60 mg tablet 1 tab PO QID 06/02/20 06/06/22 05/19/22 History quetiapine 25 mg tablet 1 tab PO BEDTIME 06/02/20 06/06/22 05/19/22 History valsartan 80 mg tablet 1 tab PO DAILY 06/02/20 06/06/22 05/19/22 History gabapentin 300 mg capsule 1 cap PO BID@0800,1600 08/24/21 06/06/22 05/19/22 History loperamide 2 mg capsule 2 mg PO BID@0800,1600 PRN Diarrhea 08/24/21 06/06/22 05/19/22 History mycophenolate mofetil 500 mg 1 tab PO BID@0800,1600 08/24/21 06/06/22 05/19/22 History tablet (CellCept) prednisone 10 mg tablet 25 mg PO DAILY 11/30/21 06/06/22 05/19/22 History albuterol sulfate 90 mcg/actuation 2 puff inhalation Q4H PRN Wheezing 01/23/22 06/06/22 05/19/22 History aerosol inhaler (Ventolin HFA) furosemide 40 mg tablet 80 mg PO DAILY 01/23/22 06/06/22 05/19/22 History mirtazapine 30 mg tablet 1 tab PO BEDTIME 01/23/22 06/06/22 05/19/22 History triamcinolone acetonide 0.1 % 1 appl topical BID PRN Inflammation 01/23/22 06/06/22 05/19/22 History topical cream glipizide 5 mg tablet 5 mg PO BID@0800,1600 04/21/22 06/06/22 05/19/22 History amlodipine 10 mg tablet 1 tab PO DAILY 06/06/22 06/06/22 Unknown History clotrimazole 1 % topical cream 1 appl topical BID PRN fungus, toes 06/06/22 06/06/22 Unknown History mupirocin 2 % topical ointment 1 applic topical BID 06/06/22 06/06/22 Unknown History oxycodone-acetaminophen 10 mg-325 1 tab PO TID PRN Moderate Pain 06/06/2206/06 Unknown History mg tablet (Scale Score 5-6) Physical Exam Vital Signs and Narrative: Vital Signs: Last Vital Signs Temp 98.1 F 06/06/22 09:09 Pulse 78 06/06/22 10:06 Resp 18 06/06/22 10:06 BP 120/77 06/06/22 10:06 Pulse Ox 96 06/06/22 09:09 O2 Del Method 06/06/22 09:09 BMI result Body Mass Index 32.0 Const: Other: General awake alert, no acute distress.? Neck supple no JVD. CVS? regular rate rhythm, Respiratory lungs clear to auscultation, no respiratory distress, no wheeze, no rhonchi. Gastrointestinal abdomen soft, obese, non tender, bowel sounds audible, no guarding , no rigidity. Extremities ? Mild pitting edema with localized redness both lower extremities no warmth no tenderness Neuro nonfocal, moving all 4 extremity, speech stuttering psych appropriate affect skin bilateral buttock stage II decubi ulcer, moist hyperemic rash both groins, chronic rash both lower extremities ? Results Labs CBC and Chem 7: 06/06/22 03:32 06/06/22 03:32 Labs: Laboratory Results - last 24 hr 06/06/22 06/06/22 06/06/22 03:32 03:32 03:32 MCV 88.3 MCH 28.1 MCHC 31.8 RDW 18.5 H Plt Count 260 D MPV 9.6 Immature Gran % (Auto) 0.9 H Neut % (Auto) 83.4 H Lymph % (Auto) 9.1 L [place] % (Auto) 6.2 Eos % (Auto) 0.3 Baso % (Auto) 0.1 Lymph # (Auto) 1.1 L [place] # (Auto) 0.7 Eos # (Auto) 0.0 Baso # (Auto) 0.0 Abs Immat Gran (auto) 0.11 H Absolute Neuts (auto) 9.7 H Absolute Nucleated RBC 0.020 H Nucleated RBC % (auto) 0.2 Anion Gap 19 Estim Creat Clear Calc 25.5 Estimated GFR 22 Random Glucose 60 Lactic Acid 2.3 H* Lactic Acid F/U @ 2Hr Calcium 9.1 Total Bilirubin 0.5 AST 50 H ALT 47 H Alkaline Phosphatase 93 Total Creatine Kinase 34 L D Total Protein 6.4 L Albumin 3.9 Influenza Type A (PCR) Influenza Type B (PCR) RSV RNA Qual (PCR) SARS-CoV-2 RNA (RT-PCR) 06/06/22 06/06/22 06:21 06:21 MCV MCH MCHC RDW Plt Count MPV Immature Gran % (Auto) Neut % (Auto) Lymph % (Auto) [place] % (Auto) Eos % (Auto) Baso % (Auto) Lymph # (Auto) [place] # (Auto) Eos # (Auto) Baso # (Auto) Abs Immat Gran (auto) Absolute Neuts (auto) Absolute Nucleated RBC Nucleated RBC % (auto) Anion Gap Estim Creat Clear Calc Estimated GFR Random Glucose Lactic Acid Lactic Acid F/U @ 2Hr 1.3 Calcium Total Bilirubin AST ALT Alkaline Phosphatase Total Creatine Kinase Total Protein Albumin Influenza Type A (PCR) NEGATIVE Influenza Type B (PCR) NEGATIVE RSV RNA Qual (PCR) NEGATIVE SARS-CoV-2 RNA (RT-PCR) NEGATIVE Assessment and Plan (1) Weakness: Status: Acute (2) Acute kidney injury: Status: Acute (3) Decubital ulcer: Status: Acute (4) Candidiasis, intertriginous: Status: Acute (5) TBI (traumatic brain injury): Status: Acute Plan 71-year-old male with a pertinent history of traumatic brain injury, type 2 diabetes mellitus, myasthenia gravis, essential hypertension, mixed hyperlipidemia who presents to the emergency department by EMS for right lower extremity redness, swelling and drainage. # generalized weakness multifactorial likely due to progression of myasthenia gravis, obesity, acute renal failure, obtain PT eval likely will need long-term care as previously recommended # acute kidney injury- likely due to poor by mouth intake will hold Lasix and losartan, adjust home medication renally dosed, check bladder scan, IV fluid follow BMP #.?Lactic acidosis -due to decreased perfusion in the setting of dehydration, no evidence of sepsis lactic acid normalized with IV fluid, check urinalysis, no respiratory symptoms # bilateral buttock decubiti ulcers, frequent position change, out of bed to chair and ambulation as tolerated, high-protein diet, foam dressing and wound care # Mikayla intertrigo apply nystatin powder twice daily #.? Type 2 diabetes mellitus with neuropathy, blood sugars stable will hold glipizide due to renal failure, place on insulin sliding scale and monitor point of care #.? Myasthenia gravis -continue prednisone, mycophenolate and azathioprine #.? 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 Essential hypertension low blood pressure on amlodipine and valsartan, hold antihypertensives and follow blood pressure # bilateral lower extremity DVT continue Eliquis Code status:? Do not resuscitate DVT prophylaxis:?on Eliquis in my clinical judgment patient need 2 night inpatient stay due to acute kidney injury requiring IV fluids as well as generalized weakness with difficulty ambulation requiring PT eval and treatment Quality Stroke Does the patient have a stroke diagnosis?: No VTE Prior VTE?: No VTE Risk Level:: Medical - moderate - high VTE Device Contraindication: Treatment Not Indicated VTE Drug Contraindication: N/A - Med Ordered
--- NOTE | 2022-06-06 12:33 | PC.NURSE ---
assumed care of pt at 1100, pt a&ox2, pt requesting food - informed pt that lunch will be here shortly. pt reports that his hands are different colors, pt's extremities are even in color, no differences noted.
--- NOTE | 2022-06-06 12:52 | PC.NURSE ---
RN-RN report called to S3.
[2022-06-06 15:51] LABS: Glucose, Whole Blood 68 mg/dL (60-115)
[2022-06-06 15:51] LABS: Glucose, Whole Blood 62 mg/dL (60-115)
[2022-06-06] MEDS: 0.9 % Sodium Chloride Flush 3 ML SYRINGE IVFLUSH ×2 (16:06→22:46)
[2022-06-06] MEDS: mycophenolate mofetiL 250 MG CAPSULE 500 MG PO (16:07)
[2022-06-06] MEDS: Gabapentin 300 MG CAPSULE PO (16:08)
[2022-06-06 16:44] LABS: Glucose, Whole Blood 78 mg/dL (60-115)
--- NOTE | 2022-06-06 18:19 | PC.NURSE ---
Low BS 68 at 1545,BS up to 78 after snack given,Dr. Orantes made aware
[2022-06-06] MEDS: pyRIDostigmine bromide 60 MG TABLET PO ×2 (18:45→20:12)
[2022-06-06] MEDS: azaTHIOprine 50 MG TABLET PO ×2 (18:45→20:12)
[2022-06-06] MEDS: Mirtazapine 30 MG TABLET PO (20:12)
[2022-06-06] MEDS: QUEtiapine Fumarate 25 MG TABLET PO (20:12)
[2022-06-06] MEDS: oxyCODONE HCl Immed Release 5 MG TABLET 10 MG PO (20:12)
[2022-06-06] MEDS: Apixaban 5 MG TABLET PO (20:13)
[2022-06-06 20:28] LABS: Glucose, Whole Blood 81 mg/dL (60-115)
[2022-06-06] MEDS: Nystatin Powder 15 GM BOTTLE 1 APPL TOPICAL (22:43)
[2022-06-06] MEDS: Mupirocin 2 % Oint 22 GM TUBE 1 APPL TOPICAL (22:43)
[2022-06-07 03:49] VITALS: BP 118/60; PULSE 102; RESP 16; TEMP 37.1; O2SAT 95
[2022-06-07 05:00] LABS: Glucose, Whole Blood 85 mg/dL (60-115)
[2022-06-07] MEDS: oxyCODONE HCl Immed Release 5 MG TABLET 10 MG PO ×2 (05:30→14:07)
[2022-06-07 06:05] LABS: Appearance Urine Clear; Color Urine Yellow; Glucose Urine UA Negative (Negative); Leukocyte Esterase Urine Negative (Negative); Nitrite Urine Negative (Negative); UMIC TRIGGER UACC YES; Urine Blood Trace (Negative); Urine Ketones Negative (Negative); Urine Protein 100 (2+) mg/dL (Neg-Trace)
[2022-06-07 06:10] LABS: Bacteria Urine None Seen (None Seen); Hyaline Casts Urine 0-2 /LPF (0-2); RBC Urine 0-2 /HPF (0-2); Squamous Epithelial Cell Urine 0-2 /HPF (0-2); WBC Urine 0-5 /HPF (0-5)
[2022-06-07 07:47] VITALS: BP 120/63; PULSE 100; RESP 18; TEMP 37.4; O2SAT 94
[2022-06-07 07:58] LABS: Glucose, Whole Blood 90 mg/dL (60-115)
[2022-06-07] MEDS: 0.9 % Sodium Chloride Flush 3 ML SYRINGE IVFLUSH ×3 (08:10→23:56)
[2022-06-07] MEDS: predniSONE 10 MG TABLET 25 MG PO (08:10)
[2022-06-07] MEDS: Apixaban 5 MG TABLET PO ×2 (08:10→20:22)
[2022-06-07] MEDS: mycophenolate mofetiL 250 MG CAPSULE 500 MG PO ×2 (08:11→15:48)
[2022-06-07] MEDS: pyRIDostigmine bromide 60 MG TABLET PO ×4 (08:11→20:22)
[2022-06-07] MEDS: Atorvastatin Calcium 80 MG TABLET PO (08:11)
[2022-06-07] MEDS: Gabapentin 300 MG CAPSULE PO ×2 (08:11→15:48)
[2022-06-07] MEDS: azaTHIOprine 50 MG TABLET PO ×3 (08:11→20:22)
[2022-06-07 09:30] LABS: Blood Urea Nitrogen 30 mg/dL (9-16); Calcium 8.5 mg/dL (8.4-10.2); Creatinine Clr Calc Pharmacy 35.6; Estimated Glomerular Filt Rate 32; Glucose Random 87 mg/dL (60-115)
[2022-06-07 09:44] LABS: Anion Gap 10 (12-20); Carbon Dioxide 23 mmol/L (22-29); Chloride 107 mmol/L (96-108); Potassium 2.8 mmol/L (3.3-5.1); Sodium 137 mmol/L (135-145)
--- NOTE | 2022-06-07 11:24 | HO.PM.IMPN ---
Subjective Subjective Date of Service: 06/07/22 Interval History: patient awake, alert offers no acute complaints, had an uneventful night, denies fever, chills, no shortness of breath, no chest pain, complaining of foot pain, had a bowel movement this morning, incontinent of urine. Review of Systems General no headache no dizziness no fever chills. CVS no chest pain, no palpitation. Respiratory no cough, no sob Gastrointestinal no nausea, no vomiting, no abdominal pain Review of Systems: Yes all other systems are reviewed and are negative Physical Exam Vital Signs: Vital Signs: Last Vital Signs Temp 99.3 F 06/07/22 07:47 Pulse 100 06/07/22 07:47 Resp 18 06/07/22 07:47 BP 120/63 06/07/22 07:47 Pulse Ox 94 06/07/22 07:47 O2 Del Method 06/07/22 07:47 BMI result Body Mass Index 32.0 Const: Other: General awake alert, no acute distress.? Neck supple no JVD. CVS? regular rate rhythm, Respiratory lungs clear to auscultation, no respiratory distress, no wheeze, no rhonchi. Gastrointestinal abdomen soft, obese, non tender, bowel sounds audible, no guarding , no rigidity. Extremities ? Mild pitting edema with localized redness both lower? extremities, no warmth, no tenderness Neuro nonfocal, moving all 4 extremity, speech stuttering psych appropriate affect skin bilateral buttock stage II decubi ulcer, moist hyperemic rash both groins, chronic rash both lower extremities and open sore left leg medial surfaceno drainage ? Objective Data Active Medications Albuterol Sulfate (Albuterol Sulfate 90 Mcg 8 Gm Inhaler) 2 puff INHALE Q4H PRN PRN Reason: Wheezing Apixaban (Apixaban 5 Mg Tablet) 5 mg PO BID [facility] Last Admin: 06/07/22 08:10 Dose: 5 mg Documented By: NORMAN Atorvastatin Calcium (Atorvastatin Calcium 80 Mg Tablet) 80 mg PO DAILY [facility] Last Admin: 06/07/22 08:11 Dose: 80 mg Documented By: NORMAN Azathioprine (Azathioprine 50 Mg Tablet) 50 mg PO TID [facility] Last Admin: 06/07/22 08:11 Dose: 50 mg Documented By: NORMAN Dextrose (Dextrose 50 % 25 Gm/50 Ml Syringe) 25 gm IVPUSH Q15M PRN; Protocol PRN Reason: per Hypoglycemia Standing Ord. Gabapentin (Gabapentin 300 Mg Capsule) 300 mg PO BID@0800,1600 [facility] Last Admin: 06/07/22 08:11 Dose: 300 mg Documented By: NORMAN Glucose (Glucose Gel 15 Gm Gel..Gram.) 15 gm PO Q15M PRN; Protocol PRN Reason: per Hypoglycemia Standing Ord. Insulin Human Lispro (Insulin Lispro 100 Unit/Ml 3 Ml Vial) 0 unit SUBCUT QIDACHS [facility]; Protocol Last Admin: 06/07/22 08:09 Dose: Not Given Documented By: NORMAN Non-Admin Reason: No Insulin Coverage Loperamide HCl (Loperamide Hcl 2 Mg Capsule) 2 mg PO BID@0800,1600 PRN PRN Reason: Diarrhea Mirtazapine (Mirtazapine 30 Mg Tablet) 30 mg PO BEDTIME [facility] Last Admin: 06/06/22 20:12 Dose: 30 mg Documented By: BRIGIDA Mupirocin (Mupirocin 2 % Oint 22 Gm Tube) 1 appl TOPICAL BID [facility] Last Admin: 06/06/22 22:43 Dose: 1 appl Documented By: BRIGIDA Mycophenolate Mofetil (Mycophenolate Mofetil 250 Mg Capsule) 500 mg PO BID@0800,1600 [facility] Last Admin: 06/07/22 08:11 Dose: 500 mg Documented By: NORMAN Nystatin (Nystatin Powder 15 Gm Bottle) 1 appl TOPICAL BID [facility]; Protocol Last Admin: 06/06/22 22:43 Dose: 1 appl Documented By: BRIGIDA Oxycodone HCl (Oxycodone Hcl Immed Release 5 Mg Tablet) 10 mg PO Q6H PRN PRN Reason: Pain, Severe (Pain Scale 7-10) Last Admin: 06/07/22 05:30 Dose: 10 mg Documented By: BRIGIDA Pharmacy Consult (Consult Rx Perform Med Rec) 1 each MISCELLANE ONCE PRN PRN Reason: Consult order Potassium Chloride (Potassium Chloride Packet 20 Meq Packet) 40 meq PO ONCE ONE Stop: 06/07/22 11:24 Prednisone (Prednisone 10 Mg Tablet) 25 mg PO DAILY [facility] Last Admin: 06/07/22 08:10 Dose: 25 mg Documented By: NORMAN Pyridostigmine [place] (Pyridostigmine [place] 60 Mg Tablet) 60 mg PO QID [facility] Last Admin: 06/07/22 08:11 Dose: 60 mg Documented By: NORMAN Quetiapine Fumarate (Quetiapine Fumarate 25 Mg Tablet) 25 mg PO BEDTIME [facility] Last Admin: 06/06/22 20:12 Dose: 25 mg Documented By: JOHNNY-PRETTY Sodium Chloride (0.9 % Sodium Chloride Flush 3 Ml Syringe) 3 ml IVFLUSH QSHIFT [facility] Last Admin: 06/07/22 08:10 Dose: 3 ml Documented By: NORMAN Labs CBC & Chem 7: 06/06/22 03:32 06/07/22 08:06 Labs: Laboratory Results - last 24 hr 06/06/22 06/06/22 06/06/22 15:15 15:45 16:39 Anion Gap Estim Creat Clear Calc Estimated GFR POC Glucose 62 68 78 Random Glucose Calcium Urine Color Urine Appearance Urine pH Ur Specific [place] Urine Protein Urine Glucose (UA) Urine Ketones Urine Blood Urine Nitrite Ur Leukocyte Esterase Urine RBC Urine WBC Ur Squamous Epith Cells Urine Bacteria Hyaline Casts 06/06/22 06/07/22 06/07/22 20:19 04:54 05:25 Anion Gap Estim Creat Clear Calc Estimated GFR POC Glucose 81 85 Random Glucose Calcium Urine Color Yellow Urine Appearance Clear Urine pH 6.0 Ur Specific [place] 1.010 Urine Protein 100 (2+) H Urine Glucose (UA) Negative Urine Ketones Negative Urine Blood Trace H Urine Nitrite Negative Ur Leukocyte Esterase Negative Urine RBC 0-2 Urine WBC 0-5 Ur Squamous Epith Cells 0-2 Urine Bacteria None Seen Hyaline Casts 0-2 06/07/22 06/07/22 07:52 08:06 Anion Gap 10 L Estim Creat Clear Calc 35.6 Estimated GFR 32 POC Glucose 90 Random Glucose 87 Calcium 8.5 D Urine Color Urine Appearance Urine pH Ur Specific [place] Urine Protein Urine Glucose (UA) Urine Ketones Urine Blood Urine Nitrite Ur Leukocyte Esterase Urine RBC Urine WBC Ur Squamous Epith Cells Urine Bacteria Hyaline Casts Microbiology Microbiology Results: Microbiology 06/06/22 03:33 Blood Culture - Preliminary Blood - Venous No growth after 24 hours. 06/06/22 03:32 Blood Culture - Preliminary Blood - Venous No growth after 24 hours. Assessment and Plan (1) Acute kidney injury: Status: Acute (2) Weakness: Status: Acute (3) Decubital ulcer: Status: Acute (4) Candidiasis, intertriginous: Status: Acute Plan 71-year-old male with a pertinent history of traumatic brain injury, type 2 diabetes mellitus, myasthenia gravis, essential hypertension, mixed hyperlipidemia who presents to the emergency department by EMS for right lower extremity redness, swelling and drainage. # generalized weakness? multifactorial likely due to progression of myasthenia gravis, obesity, acute renal failure Treat KIMBERLEY, follow PT eval #? acute kidney injury-? likely due to poor by mouth intake creatinine trending down, continue to hold Lasix and losartan, s/p IV fluid follow BMP # Hypokalemia will replete and follow #.?Lactic acidosis -due to decreased perfusion in the setting of dehydration, no evidence of sepsis lactic acid normalized with IV fluid, UA no bacteria, no respiratory symptoms #? bilateral buttock decubiti ulcers, frequent position change, out of bed to chair and ambulation as tolerated, high-protein diet, foam dressing and wound care, will place Jimenez for wound healing #? Mikayla intertrigo? nystatin powder twice daily #.? Type 2 diabetes mellitus with neuropathy, blood sugars stable , hold glipizide due to renal failure, on insulin sliding scale and monitor point of care #.? Myasthenia gravis -continue prednisone, mycophenolate and azathioprine #.? 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 Essential hypertension ? low blood pressure on amlodipine and valsartan, hold antihypertensives and follow blood pressure #? bilateral lower extremity DVT continue Eliquis Code status:? Do not resuscitate DVT prophylaxis:?on Eliquis ? patient need continued inpatient stay due to acute kidney injury requiring IV fluids as well as generalized weakness with difficulty ambulation need PT eval and treatment Quality Stroke Does the patient have a stroke diagnosis?: No VTE Prior VTE?: No VTE Risk Level:: Medical - moderate - high VTE Device Contraindication: Treatment Not Indicated VTE Drug Contraindication: N/A - Med Ordered
[2022-06-07] MEDS: Mupirocin 2 % Oint 22 GM TUBE 1 APPL TOPICAL ×2 (11:51→20:29)
[2022-06-07] MEDS: Nystatin Powder 15 GM BOTTLE 1 APPL TOPICAL ×2 (11:51→20:29)
[2022-06-07 11:53] LABS: Glucose, Whole Blood 178 mg/dL (60-115)
[2022-06-07] MEDS: Insulin Lispro 100 UNIT/ML 3 ML VIAL SUBCUT ×3 (12:00→20:21)
[2022-06-07] MEDS: Potassium Chloride ER 20 MEQ TAB.ER.PRT 40 MEQ PO (12:39)
--- NOTE | 2022-06-07 13:32 | PC.NURSE ---
saleh not placed, pt doing better and has not been inc. Dr Orantes aware.
[2022-06-07 15:06] VITALS: BP 105/55; PULSE 84; RESP 16; TEMP 36.4; O2SAT 92
[2022-06-07 16:12] LABS: Glucose, Whole Blood 277 mg/dL (60-115)
[2022-06-07 19:37] VITALS: BP 124/78; PULSE 90; RESP 16; TEMP 36.1; O2SAT 93
[2022-06-07 19:59] LABS: Glucose, Whole Blood 185 mg/dL (60-115)
[2022-06-07] MEDS: QUEtiapine Fumarate 25 MG TABLET PO (20:22)
[2022-06-07] MEDS: Mirtazapine 30 MG TABLET PO (20:22)
[2022-06-08 04:00] VITALS: BP 142/63; PULSE 77; RESP 18; TEMP 36.6; O2SAT 97
[2022-06-08 07:27] LABS: Anion Gap 14 (12-20); Blood Urea Nitrogen 26 mg/dL (9-16); Calcium 8.3 mg/dL (8.4-10.2); Carbon Dioxide 24 mmol/L (22-29); Chloride 110 mmol/L (96-108); Creatinine Clr Calc Pharmacy 41.7; Estimated Glomerular Filt Rate 39; Glucose Random 114 mg/dL (60-115); Potassium 3.5 mmol/L (3.3-5.1); Sodium 144 mmol/L (135-145)
[2022-06-08 07:29] LABS: Glucose, Whole Blood 111 mg/dL (60-115)
[2022-06-08] MEDS: predniSONE 10 MG TABLET 25 MG PO (07:41)
[2022-06-08] MEDS: azaTHIOprine 50 MG TABLET PO ×3 (07:46→21:24)
[2022-06-08] MEDS: pyRIDostigmine bromide 60 MG TABLET PO ×4 (07:46→21:24)
[2022-06-08] MEDS: mycophenolate mofetiL 250 MG CAPSULE 500 MG PO ×2 (07:46→17:04)
[2022-06-08] MEDS: Gabapentin 300 MG CAPSULE PO ×2 (07:46→17:03)
[2022-06-08] MEDS: Apixaban 5 MG TABLET PO ×2 (07:46→21:24)
[2022-06-08] MEDS: Atorvastatin Calcium 80 MG TABLET PO (07:46)
[2022-06-08] MEDS: Mupirocin 2 % Oint 22 GM TUBE 1 APPL TOPICAL ×2 (07:56→21:24)
[2022-06-08] MEDS: Nystatin Powder 15 GM BOTTLE 1 APPL TOPICAL ×2 (07:56→21:24)
[2022-06-08] MEDS: 0.9 % Sodium Chloride Flush 3 ML SYRINGE IVFLUSH ×2 (07:57→17:04)
[2022-06-08 08:00] VITALS: BP 138/55; PULSE 81; RESP 19; TEMP 36.8; O2SAT 96
[2022-06-08 11:06] LABS: Glucose, Whole Blood 197 mg/dL (60-115)
[2022-06-08] MEDS: Insulin Lispro 100 UNIT/ML 3 ML VIAL SUBCUT ×3 (11:53→21:23)
[2022-06-08 12:36] VITALS: PULSE 81; O2SAT 96
--- NOTE | 2022-06-08 12:56 | HO.PM.IMPN ---
Subjective Subjective Date of Service: 06/08/22 Interval History: patient feeling better this morning ate breakfast, offers no acute complaints, no nausea, no vomiting, no abdominal pain, no diarrhea, telling the story what happened at home prior to coming to the hospital he was unable to get up from the commode 3 family members tried but he could not stood up therefore EMS was called and he was brought to the hospital, he feels discouraged, prior to this he was ambulating with walker. Review of Systems General no headache ,no dizziness no fever chills. CVS no chest pain, no palpitation. Respiratory no cough, no sob. Gastrointestinal no nausea, no vomiting, no abdominal pain Review of Systems: Yes all other systems are reviewed and are negative Physical Exam Vital Signs: Vital Signs: Last Vital Signs Temp 98.3 F 06/08/22 08:00 Pulse 81 06/08/22 08:00 Resp 19 06/08/22 08:00 BP 138/55 L 06/08/22 08:00 Pulse Ox 96 06/08/22 08:00 O2 Del Method 06/08/22 08:00 BMI result Body Mass Index 32.0 Const: Other: General awake alert, no acute distress.? Neck supple no JVD. CVS? regular rate rhythm, Respiratory lungs clear to auscultation, no respiratory distress, no wheeze, no rhonchi. Gastrointestinal abdomen soft, obese, non tender, bowel sounds audible, no guarding , no rigidity. Extremities ? Mild pitting edema with localized redness both lower? extremities, no warmth, no tenderness Neuro nonfocal, moving all 4 extremity, speech stuttering psych appropriate affect skin bilateral buttock stage II decubi ulcer, moist hyperemic rash both groins, chronic rash both lower extremities and open sore left leg medial surface no drainage. ? Objective Data Active Medications Albuterol Sulfate (Albuterol Sulfate 90 Mcg 8 Gm Inhaler) 2 puff INHALE Q4H PRN PRN Reason: Wheezing Apixaban (Apixaban 5 Mg Tablet) 5 mg PO BID [facility] Last Admin: 06/08/22 07:46 Dose: 5 mg Documented By: JER Atorvastatin Calcium (Atorvastatin Calcium 80 Mg Tablet) 80 mg PO DAILY [facility] Last Admin: 06/08/22 07:46 Dose: 80 mg Documented By: JER Azathioprine (Azathioprine 50 Mg Tablet) 50 mg PO TID [facility] Last Admin: 06/08/22 07:46 Dose: 50 mg Documented By: JER Dextrose (Dextrose 50 % 25 Gm/50 Ml Syringe) 25 gm IVPUSH Q15M PRN; Protocol PRN Reason: per Hypoglycemia Standing Ord. Gabapentin (Gabapentin 300 Mg Capsule) 300 mg PO BID@0800,1600 [facility] Last Admin: 06/08/22 07:46 Dose: 300 mg Documented By: JER Glucose (Glucose Gel 15 Gm Gel..Gram.) 15 gm PO Q15M PRN; Protocol PRN Reason: per Hypoglycemia Standing Ord. Insulin Human Lispro (Insulin Lispro 100 Unit/Ml 3 Ml Vial) 0 unit SUBCUT QIDACHS [facility]; Protocol Last Admin: 06/08/22 11:53 Dose: 2 unit Documented By: JER Loperamide HCl (Loperamide Hcl 2 Mg Capsule) 2 mg PO BID@0800,1600 PRN PRN Reason: Diarrhea Mirtazapine (Mirtazapine 30 Mg Tablet) 30 mg PO BEDTIME [facility] Last Admin: 06/07/22 20:22 Dose: 30 mg Documented By: KHAI Mupirocin (Mupirocin 2 % Oint 22 Gm Tube) 1 appl TOPICAL BID [facility] Last Admin: 06/08/22 07:56 Dose: 1 appl Documented By: JER Mycophenolate Mofetil (Mycophenolate Mofetil 250 Mg Capsule) 500 mg PO BID@0800,1600 [facility] Last Admin: 06/08/22 07:46 Dose: 500 mg Documented By: JER Nystatin (Nystatin Powder 15 Gm Bottle) 1 appl TOPICAL BID [facility]; Protocol Last Admin: 06/08/22 07:56 Dose: 1 appl Documented By: JER Oxycodone HCl (Oxycodone Hcl Immed Release 5 Mg Tablet) 10 mg PO Q6H PRN PRN Reason: Pain, Severe (Pain Scale 7-10) Last Admin: 06/07/22 14:07 Dose: 10 mg Documented By: NORMAN Pharmacy Consult (Consult Rx Perform Med Rec) 1 each MISCELLANE ONCE PRN PRN Reason: Consult order Prednisone (Prednisone 10 Mg Tablet) 25 mg PO DAILY [facility] Last Admin: 06/08/22 07:41 Dose: 25 mg Documented By: JER Pyridostigmine [place] (Pyridostigmine [place] 60 Mg Tablet) 60 mg PO QID [facility] Last Admin: 06/08/22 07:46 Dose: 60 mg Documented By: JER Quetiapine Fumarate (Quetiapine Fumarate 25 Mg Tablet) 25 mg PO BEDTIME [facility] Last Admin: 06/07/22 20:22 Dose: 25 mg Documented By: KHAI Sodium Chloride (0.9 % Sodium Chloride Flush 3 Ml Syringe) 3 ml IVFLUSH QSHIFT [facility] Last Admin: 06/08/22 07:57 Dose: 3 ml Documented By: JER Labs CBC & Chem 7: 06/06/22 03:32 06/08/22 06:34 Labs: Laboratory Results - last 24 hr 06/07/22 06/07/22 06/08/22 16:08 19:51 06:34 Anion Gap 14 Estim Creat Clear Calc 41.7 Estimated GFR 39 POC Glucose 277 H 185 H Random Glucose 114 Calcium 8.3 L 06/08/22 06/08/22 07:19 11:00 Anion Gap Estim Creat Clear Calc Estimated GFR POC Glucose 111 197 H Random Glucose Calcium Microbiology Microbiology Results: Microbiology 06/06/22 03:33 Blood Culture - Preliminary Blood - Venous No growth after 48 hours. 06/06/22 03:32 Blood Culture - Preliminary Blood - Venous No growth after 48 hours. Assessment and Plan (1) Acute kidney injury: Status: Acute (2) Weakness: Status: Acute (3) Decubital ulcer: Status: Acute (4) Candidiasis, intertriginous: Status: Acute Plan 71-year-old male with a pertinent history of traumatic brain injury, type 2 diabetes mellitus, myasthenia gravis, essential hypertension, mixed hyperlipidemia who presents to the emergency department by EMS for right lower extremity redness, swelling and drainage. # generalized weakness? multifactorial likely due to progression of myasthenia gravis, obesity, acute renal failure follow PT eval, prior PT assessment recommended long-term care #? acute kidney injury-? likely due to poor by mouth intake creatinine improved from 2.84 to 1.74 today, continue to hold Lasix and losartan, s/p IV fluid follow BMP # Hypokalemia repleted and normalized to 3.5 #.?Lactic acidosis -due to decreased perfusion in the setting of dehydration, no evidence of sepsis lactic acid normalized with IV fluid, UA no bacteria, no respiratory symptoms #? bilateral buttock decubiti ulcers, frequent position change, out of bed to chair and ambulation as tolerated, high-protein diet, foam dressing and wound care #? Mikayla intertrigo? nystatin powder twice daily #.? Type 2 diabetes mellitus with neuropathy, blood sugars stable ,glipizide 5 mg b.i.d. is on hold due to renal failure, on insulin sliding scale ,monitor point of care #.? Myasthenia gravis -continue prednisone, mycophenolate and azathioprine #.? Mood disorder with traumatic brain injury continue Remeron and Seroquel #.? Essential hypertension ? low blood pressure on amlodipine 10 mg, Lasix 80 mg and valsartan 80 mg, hold antihypertensives and follow blood pressure, BP trending up, will start amlodipine 5 mg daily no history of coronary artery disease, no echo on system, on Lasix likely due to lower extremity edema will consider resuming Lasix low-dose 40 mg upon discharge #? bilateral lower extremity DVT continue Eliquis Code status:? Do not resuscitate DVT prophylaxis:?on Eliquis ? patient need continued inpatient stay due to acute kidney injury requiring IV fluids as well as generalized weakness with difficulty ambulation need PT eval and safe discharge Quality Stroke Does the patient have a stroke diagnosis?: No VTE Prior VTE?: No VTE Risk Level:: Medical - moderate - high VTE Device Contraindication: Treatment Not Indicated VTE Drug Contraindication: N/A - Med Ordered
[2022-06-08 13:28] VITALS: BMI 32.0
--- NOTE | 2022-06-08 13:35 | MHC.CLN ---
NUTRITION CONSULT FOR STAGE II WOUNDS BILATERAL BUTTOCKS. DIET=DIABETIC 2000 KCALS-APPROPRIATE. PATIENT DOES NOT WANT SUPPLEMENT DRINKS. INTAKE AT LUNCH TODAY ABOUT 75%. MONITOR FOR PO INTAKE AND SKIN.
[2022-06-08 15:56] VITALS: BP 122/58; PULSE 79; RESP 17; TEMP 36.5; O2SAT 95
[2022-06-08 16:55] LABS: Glucose, Whole Blood 329 mg/dL (60-115)
[2022-06-08 20:00] VITALS: BP 125/50; PULSE 72; RESP 18; TEMP 36.4; O2SAT 96
[2022-06-08 20:52] LABS: Glucose, Whole Blood 204 mg/dL (60-115)
[2022-06-08] MEDS: QUEtiapine Fumarate 25 MG TABLET PO (21:24)
[2022-06-08] MEDS: Mirtazapine 30 MG TABLET PO (21:24)
[2022-06-08] MEDS: oxyCODONE HCl Immed Release 5 MG TABLET 10 MG PO (22:42)
[2022-06-09] MEDS: 0.9 % Sodium Chloride Flush 3 ML SYRINGE IVFLUSH ×4 (00:05→22:04)
[2022-06-09 03:52] VITALS: BP 132/60; PULSE 64; RESP 16; TEMP 36.2; O2SAT 95
[2022-06-09 07:16] LABS: Anion Gap 14 (12-20); Blood Urea Nitrogen 25 mg/dL (9-16); Calcium 8.5 mg/dL (8.4-10.2); Carbon Dioxide 25 mmol/L (22-29); Chloride 110 mmol/L (96-108); Creatinine Clr Calc Pharmacy 45.4; Estimated Glomerular Filt Rate 42; Glucose Random 88 mg/dL (60-115); Potassium 4.3 mmol/L (3.3-5.1); Sodium 145 mmol/L (135-145)
[2022-06-09 07:31] LABS: Glucose, Whole Blood 90 mg/dL (60-115)
[2022-06-09 07:51] VITALS: BP 172/70; PULSE 70; RESP 16; TEMP 36.1; O2SAT 97
[2022-06-09 09:21] VITALS: PULSE 112; O2SAT 96
[2022-06-09] MEDS: Apixaban 5 MG TABLET PO ×2 (09:21→21:53)
[2022-06-09] MEDS: pyRIDostigmine bromide 60 MG TABLET PO ×4 (09:21→21:53)
[2022-06-09] MEDS: mycophenolate mofetiL 250 MG CAPSULE 500 MG PO ×2 (09:21→16:33)
[2022-06-09] MEDS: Gabapentin 300 MG CAPSULE PO ×2 (09:21→16:33)
[2022-06-09] MEDS: Atorvastatin Calcium 80 MG TABLET PO (09:22)
[2022-06-09] MEDS: predniSONE 10 MG TABLET 25 MG PO (09:22)
[2022-06-09] MEDS: amLODIPine Besylate 5 MG TABLET PO (09:22)
[2022-06-09] MEDS: azaTHIOprine 50 MG TABLET PO ×3 (09:22→21:53)
[2022-06-09] MEDS: Mupirocin 2 % Oint 22 GM TUBE 1 APPL TOPICAL ×2 (09:23→22:04)
[2022-06-09] MEDS: Nystatin Powder 15 GM BOTTLE 1 APPL TOPICAL ×2 (09:23→21:57)
[2022-06-09 11:10] LABS: Glucose, Whole Blood 110 mg/dL (60-115)
--- NOTE | 2022-06-09 11:48 | HO.PM.IMPN ---
Subjective Subjective Date of Service: 06/09/22 Interval History: patient feeling better this morning, offers no acute complaints, no nausea, no vomiting, no abdominal pain, no diarrhea, prior to coming to the hospital he was unable to get up from the commode 3 family members tried but he could not stood up therefore EMS was called and he was brought to the hospital, he feels discouraged, prior to this he was ambulating with walker. He is frustrated about not able to ambulate Review of Systems General no headache ,no dizziness no fever chills. CVS no chest pain, no palpitation. Respiratory no cough, no sob. Gastrointestinal no nausea, no vomiting, no abdominal pain Physical Exam Vital Signs: Vital Signs: Last Vital Signs Temp 96.9 F 06/09/22 07:51 Pulse 112 H 06/09/22 09:21 Resp 16 06/09/22 07:51 BP 172/70 H 06/09/22 07:51 Pulse Ox 96 06/09/22 09:21 O2 Del Method 06/09/22 07:51 BMI result Body Mass Index 32.0 Const: Other: General awake alert, no acute distress.? Neck supple no JVD. CVS? regular rate rhythm, Respiratory lungs clear to auscultation, no respiratory distress, no wheeze, no rhonchi. Gastrointestinal abdomen soft, obese, non tender, bowel sounds audible, no guarding , no rigidity. Extremities ? Mild pitting edema with localized redness both lower? extremities, no warmth, no tenderness Neuro nonfocal, moving all 4 extremity, speech stuttering psych appropriate affect skin bilateral buttock stage II decubi ulcer, moist hyperemic rash both groins, chronic rash both lower extremities and open sore left leg medial surface no drainage. ? Skin: Other: Photos were taken by the nurse using a digital camera, the date on the photos are inaccurate and the photos were taking today. The patient has intertriginous fungal infection of his groin. He has new appearing decubital ulcers with no evidence of cellulitis. He has erythema to his lower extremities which is more consistent with chronic dermatitis as opposed to cellulitis. Objective Data Active Medications Albuterol Sulfate (Albuterol Sulfate 90 Mcg 8 Gm Inhaler) 2 puff INHALE Q4H PRN PRN Reason: Wheezing Amlodipine Besylate (Amlodipine [place] 5 Mg Tablet) 5 mg PO DAILY [facility]; Protocol Last Admin: 12/06/22 09:22 Dose: 5 mg Documented By: CAROLYNE Apixaban (Apixaban 5 Mg Tablet) 5 mg PO BID [facility] Last Admin: 06/09/22 09:21 Dose: 5 mg Documented By: CAROLYNE Atorvastatin Calcium (Atorvastatin Calcium 80 Mg Tablet) 80 mg PO DAILY [facility] Last Admin: 06/09/22 09:22 Dose: 80 mg Documented By: CAROLYNE Azathioprine (Azathioprine 50 Mg Tablet) 50 mg PO TID [facility] Last Admin: 06/09/22 09:22 Dose: 50 mg Documented By: CAROLYNE Dextrose (Dextrose 50 % 25 Gm/50 Ml Syringe) 25 gm IVPUSH Q15M PRN; Protocol PRN Reason: per Hypoglycemia Standing Ord. Gabapentin (Gabapentin 300 Mg Capsule) 300 mg PO BID@0800,1600 [facility] Last Admin: 06/09/22 09:21 Dose: 300 mg Documented By: CAROLYNE Glucose (Glucose Gel 15 Gm Gel..Gram.) 15 gm PO Q15M PRN; Protocol PRN Reason: per Hypoglycemia Standing Ord. Insulin Human Lispro (Insulin Lispro 100 Unit/Ml 3 Ml Vial) 0 unit SUBCUT QIDACHS [facility]; Protocol Last Admin: 06/09/22 11:12 Dose: Not Given Documented By: CAROLYNE Non-Admin Reason: No Insulin Coverage Loperamide HCl (Loperamide Hcl 2 Mg Capsule) 2 mg PO BID@0800,1600 PRN PRN Reason: Diarrhea Mirtazapine (Mirtazapine 30 Mg Tablet) 30 mg PO BEDTIME [facility] Last Admin: 06/08/22 21:24 Dose: 30 mg Documented By: LEXIS Mupirocin (Mupirocin 2 % Oint 22 Gm Tube) 1 appl TOPICAL BID [facility] Last Admin: 06/09/22 09:23 Dose: 1 appl Documented By: CAROLYNE Mycophenolate Mofetil (Mycophenolate Mofetil 250 Mg Capsule) 500 mg PO BID@0800,1600 [facility] Last Admin: 06/09/22 09:21 Dose: 500 mg Documented By: CAROLYNE Nystatin (Nystatin Powder 15 Gm Bottle) 1 appl TOPICAL BID [facility]; Protocol Last Admin: 06/09/22 09:23 Dose: 1 appl Documented By: HO.MATTHEP Oxycodone HCl (Oxycodone Hcl Immed Release 5 Mg Tablet) 10 mg PO Q6H PRN PRN Reason: Pain, Severe (Pain Scale 7-10) Last Admin: 06/08/22 22:42 Dose: 10 mg Documented By: LEXIS Pharmacy Consult (Consult Rx Perform Med Rec) 1 each MISCELLANE ONCE PRN PRN Reason: Consult order Prednisone (Prednisone 10 Mg Tablet) 25 mg PO DAILY [facility] Last Admin: 06/09/22 09:22 Dose: 25 mg Documented By: CAROLYNE Pyridostigmine [place] (Pyridostigmine [place] 60 Mg Tablet) 60 mg PO QID [facility] Last Admin: 06/09/22 09:21 Dose: 60 mg Documented By: CAROLYNE Quetiapine Fumarate (Quetiapine Fumarate 25 Mg Tablet) 25 mg PO BEDTIME [facility] Last Admin: 06/08/22 21:24 Dose: 25 mg Documented By: LEXIS Sodium Chloride (0.9 % Sodium Chloride Flush 3 Ml Syringe) 3 ml IVFLUSH QSHIFT [facility] Last Admin: 06/09/22 09:21 Dose: 3 ml Documented By: CAROLYNE Labs CBC & Chem 7: 06/06/22 03:32 06/09/22 06:12 Labs: Laboratory Results - last 24 hr 06/08/22 06/08/22 06/09/22 16:46 20:46 06:12 Anion Gap 14 Estim Creat Clear Calc 45.4 Estimated GFR 42 POC Glucose 329 H 204 H Random Glucose 88 Calcium 8.5 06/09/22 06/09/22 07:20 11:06 Anion Gap Estim Creat Clear Calc Estimated GFR POC Glucose 90 110 Random Glucose Calcium Assessment and Plan (1) Acute kidney injury: Status: Acute (2) Weakness: Status: Acute (3) Decubital ulcer: Status: Acute (4) Candidiasis, intertriginous: Status: Acute Plan 71-year-old male with a pertinent history of traumatic brain injury, type 2 diabetes mellitus, myasthenia gravis, essential hypertension, mixed hyperlipidemia who presents to the emergency department by EMS for right lower extremity redness, swelling and drainage. # generalized weakness? multifactorial likely due to progression of myasthenia gravis, obesity, acute renal failure follow PT eval, prior PT assessment recommended long-term care #? acute kidney injury-? likely due to poor by mouth intake creatinine improved from 2.84 to 1.74 today, continue to hold Lasix and losartan, s/p IV fluid follow BMP # Hypokalemia repleted and normalized to 3.5 #.?Lactic acidosis -due to decreased perfusion in the setting of dehydration, no evidence of sepsis lactic acid normalized with IV fluid, UA no bacteria, no respiratory symptoms #? bilateral buttock decubiti ulcers, frequent position change, out of bed to chair and ambulation as tolerated, high-protein diet, foam dressing and wound care #? Mikayla intertrigo? nystatin powder twice daily #.? Type 2 diabetes mellitus with neuropathy, blood sugars stable ,glipizide 5 mg b.i.d. is on hold due to renal failure, on insulin sliding scale ,monitor point of care #.? Myasthenia gravis -continue prednisone, mycophenolate and azathioprine #.? Mood disorder with traumatic brain injury continue Remeron and Seroquel #.? Essential hypertension ? low blood pressure on amlodipine 10 mg, Lasix 80 mg and valsartan 80 mg, hold antihypertensives and follow blood pressure, BP trending up, will start amlodipine 5 mg daily no history of coronary artery disease, no echo on system, on Lasix likely due to lower extremity edema will consider resuming Lasix low-dose 40 mg upon discharge #? bilateral lower extremity DVT continue Eliquis Code status:? Do not resuscitate DVT prophylaxis:?on Eliquis ? patient need continued inpatient stay due to acute kidney injury requiring IV fluids as well as generalized weakness with difficulty ambulation need PT eval and safe discharge Quality Stroke Does the patient have a stroke diagnosis?: No VTE Prior VTE?: No VTE Risk Level:: Medical - moderate - high VTE Device Contraindication: Treatment Not Indicated VTE Drug Contraindication: N/A - Med Ordered
--- NOTE | 2022-06-09 12:52 | MHC.CM.PN ---
Addendum entered by Oneida Fuentes RN 06/09/22 15:42: [facility] BED OFFER. PLAN WAS 6 PM [facility] TRANSPORT TO FACILITY FACILITY NOW SAYING THEY CAN NOT ACCEPT UNTIL WEDNESDAY MORNING (06/10/22) MD AND RN MADE AWARE. FAMILY TO BE MADE AWARE WELL Original Note: CALL TO PATIENT'S AND DAUGHTER (CRISTO AND ESPERANZA) AT [phone] FAMILY PREFERS PATIENT RETURN HOME WITH RESUMPTION OF HIS [facility] THEY ARE AGREEABLE TO A REFERRAL TO [facility] [facility] FOR LTC APPLICATION FACE SHEET TO BE FAXED TO [phone] [facility] REQUEST FOR TRANSPORT TO BE MADE FOR A 1600 PHYSICIAN/OPHTHALMOLOGIST. IMM 06/07 PREVIOUSLY COMPLETED. UNIT AND RN AWARE OF PLAN.
[2022-06-09] MEDS: oxyCODONE HCl Immed Release 5 MG TABLET 10 MG PO (13:23)
[2022-06-09 15:48] VITALS: BP 153/67; PULSE 68; RESP 16; TEMP 36.3; O2SAT 98
[2022-06-09 16:02] LABS: COVID-19 Test Negative (Negative); IDNOW Serial# 16C4AD1C
[2022-06-09 16:09] LABS: Glucose, Whole Blood 252 mg/dL (60-115)
[2022-06-09] MEDS: Insulin Lispro 100 UNIT/ML 3 ML VIAL SUBCUT ×2 (16:34→21:53)
[2022-06-09 19:32] VITALS: BP 165/73; PULSE 75; RESP 16; TEMP 36.1; O2SAT 98
[2022-06-09 20:03] LABS: Glucose, Whole Blood 200 mg/dL (60-115)
[2022-06-09] MEDS: QUEtiapine Fumarate 25 MG TABLET PO (21:53)
[2022-06-09] MEDS: Mirtazapine 30 MG TABLET PO (21:53)
[2022-06-10] MEDS: oxyCODONE HCl Immed Release 5 MG TABLET 10 MG PO ×2 (00:13→08:41)
[2022-06-10 03:13] VITALS: BP 139/83; PULSE 73; RESP 16; TEMP 36.2; O2SAT 96
[2022-06-10 07:21] VITALS: BP 127/56; PULSE 77; RESP 17; TEMP 36.3; O2SAT 98
[2022-06-10 07:27] LABS: Glucose, Whole Blood 119 mg/dL (60-115)
[2022-06-10] MEDS: mycophenolate mofetiL 250 MG CAPSULE 500 MG PO (08:29)
[2022-06-10] MEDS: predniSONE 10 MG TABLET 25 MG PO (08:30)
[2022-06-10] MEDS: amLODIPine Besylate 5 MG TABLET PO (08:30)
[2022-06-10] MEDS: Gabapentin 300 MG CAPSULE PO (08:30)
[2022-06-10] MEDS: Mupirocin 2 % Oint 22 GM TUBE 1 APPL TOPICAL (08:31)
[2022-06-10] MEDS: Apixaban 5 MG TABLET PO (08:31)
[2022-06-10] MEDS: Atorvastatin Calcium 80 MG TABLET PO (08:31)
[2022-06-10] MEDS: azaTHIOprine 50 MG TABLET PO (08:31)
[2022-06-10] MEDS: Nystatin Powder 15 GM BOTTLE 1 APPL TOPICAL (08:31)
[2022-06-10] MEDS: pyRIDostigmine bromide 60 MG TABLET PO ×2 (08:31→12:27)
[2022-06-10] MEDS: 0.9 % Sodium Chloride Flush 3 ML SYRINGE IVFLUSH (08:32)
[2022-06-10] MEDS: Valsartan 40 MG TABLET PO (08:42)
--- NOTE | 2022-06-10 09:59 | P.DS_ITS ---
DS: Providers Provider Date of Service: 06/10/22 Date of admission: 06/06/22 10:11 Primary care physician: Nonstaff Physician DS: Diagnosis Discharge Diagnosis (1) Acute kidney injury: Status: Acute (2) Weakness: Status: Acute (3) Decubital ulcer: Status: Acute (4) Candidiasis, intertriginous: Status: Acute DS: Summary Hospital Course Hospital Course: Attending physician on admission: Jose Orantes Chief Complaint:? generalized weakness ? 72-year-old gentleman? 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 DVT, recently discharged from [facility] on 05/22 after being treated for hypotension requiring overnight stay at ICU, lower extremity cellulitis, and acute kidney injury, during that hospitalization patient was evaluated by physical therapy they recommended long-term care versus 24 hour home care patient was? discharged home with home health services according to patient he has been unable to ambulate for last 3 days? and has been sitting on recliner, family has been helping him, patient has speech impairment due to his traumatic brain injury therefore unable to provide detailed history but according to him he was unable to get up from the toilet seat family tried helping him he was unable to stand up and due to ongoing generalized weakness he was sent to [facility] patient denies fever chills, denies lightheadedness, headache or dizziness, he always feels cold, he denies any back pain , denies any head trauma or fall, he denies urinary symptoms of urgency frequency, denies nausea vomiting abdominal pain or diarrhea he moves his bowels daily and at times twice, in the emergency room workup revealed an elevated? creatinine of 2.85 that bumped from 1.44 on 05/22/2022, lactic acid is elevated at 2.3, that improved with IV fluid mildly elevated AST and ALT of 50 and 47, his examination reveals significant bilateral buttock stage II ulcer, and groin rash. Hospital course: # generalized weakness? multifactorial likely due to progression of myasthenia gravis, obesity, acute renal failure ?? follow PT eval, prior PT assessment? recommended long-term care which he is agreable with #? Acute kidney injury-? likely due to poor by mouth intake? creatinine? improved from 2.84 to 1.60 today. Lasix and losartan were on hold but can be restarted, s/p IV fluid follow BMP # Hypokalemia ? repleted and normalized to 4.3 #.?Lactic acidosis -due to decreased perfusion in the setting of dehydration, no evidence of sepsis lactic acid normalized with IV fluid,? UA no bacteria, no respiratory symptoms #? bilateral buttock decubiti ulcers, POA, frequent position change, out of bed to chair and ambulation as tolerated, high-protein diet, foam dressing and wound care #? Mikayla intertrigo? nystatin powder twice daily #.? Type 2 diabetes mellitus with neuropathy, blood sugars stable ,glipizide? 5 mg b.i.d. is on hold due to renal failure, on insulin sliding scale ,monitor point of care #.? Myasthenia gravis -continue prednisone , mycophenolate and azathioprine #.? Mood disorder with traumatic brain injury continue Remeron and Seroquel #.? Essential hypertension ? low blood pressure on amlodipine 10 mg, Lasix? 80 mg and valsartan 80 mg, hold antihypertensives and follow blood pressure, BP trending up, will start amlodipine 5 mg daily ? ? ? no history of coronary artery disease, no echo on system, on Lasix likely due to lower extremity edema will consider resuming Lasix low-dose 40 mg upon discharge ?? ? #? bilateral lower extremity DVT continue Eliquis Code status:? Do not resuscitate Time Spent with Patient Time attestation: Total time spent providing and/or coordinating discharge services: Discharge coordination time: Greater than 30 minutes Quality: Safe Use of Opioids Does Pt have an Active Cancer Diagnosis on the Problem List?: No Quality: Stroke Does the patient have a stroke diagnosis?: No Physical Exam Vital Signs: Vital Signs: Selected Entries 06/10/22 07:21 Temperature 97.3 F Pulse Rate 77 Respiratory Rate 17 Blood Pressure 127/56 L Pulse Oximetry 98 Oxygen Delivery Me thod Room Air Const: Other: General awake alert, no acute distress.? Neck supple no JVD. CVS? regular rate rhythm, Respiratory lungs clear to auscultation, no respiratory distress, no wheeze, no rhonchi. Gastrointestinal abdomen soft, obese, non tender, bowel sounds audible, no guarding , no rigidity. Extremities ? Mild pitting edema with localized redness both lower? extremities, no warmth, no tenderness Neuro nonfocal, moving all 4 extremity, speech stuttering psych appropriate affect skin bilateral buttock stage II decubi ulcer, moist hyperemic rash both groins, chronic rash both lower extremities and open sore left leg medial surface no drainage. ? DS: Data Data Completed and Pending Labs on day of discharge: Laboratory Results - last 24 hr 06/08/22 06/08/22 06/09/22 16:46 20:46 06:12 Sodium 145 Potassium 4.3 D Chloride 110 H Carbon Dioxide 25 Anion Gap 14 BUN 25 H Creatinine 1.60 H Estim Creat Clear Calc 45.4 Estimated GFR 42 POC Glucose 329 H 204 H Random Glucose 88 Calcium 8.5 06/09/22 06/09/22 07:20 11:06 Sodium Potassium Chloride Carbon Dioxide Anion Gap BUN Creatinine Estim Creat Clear Calc Estimated GFR POC Glucose 90 110 Random Glucose Calcium Preliminary micro results at discharge 06/06/22 03:33 Blood Culture - Preliminary Blood - Venous No growth after 48 hours. 06/06/22 03:32 Blood Culture - Preliminary Blood - Venous No growth after 48 hours. Discharge Plan Discharge Anticipated Discharge Date/Time: 06/10/22 07:53 Patient Disposition: Home Health Service Discharge Diagnosis: Generalized weakness, KIMBERLEY, dehydration, Referrals: [facility] [Outside] - 1 Week Physician,Nonstaff [Primary Care Provider] - 1 Week Discharge Medications: New oxycodone 5 mg Tablet 10 mg PO Q6H PRN (Reason: Pain, Severe (Pain Scale 7-10)) Qty: 20 0RF Rx Instructions: Partial Fill upon patient request. amlodipine 5 mg Tablet 5 mg PO DAILY Qty: 30 0RF Protocol: Hold for SBP< HOLD for SBP < : 90 furosemide [Lasix] 20 mg tablet 20 mg PO DAILY Qty: 30 0RF valsartan 40 mg tablet 40 mg PO DAILY Qty: 60 0RF Continued rosuvastatin 20 mg tablet 20 mg PO DAILY 90 Days Qty: 90 0RF quetiapine 25 mg tablet 1 tab PO BEDTIME azathioprine [Imuran] 50 mg tablet 50 mg PO TID pyridostigmine bromide 60 mg tablet 1 tab PO QID loperamide 2 mg capsule 2 mg PO BID@0800,1600 PRN (Reason: Diarrhea) mycophenolate mofetil [CellCept] 500 mg tablet 1 tab PO BID@0800,1600 gabapentin 300 mg capsule 1 cap PO BID@0800,1600 prednisone 10 mg tablet 25 mg PO DAILY furosemide 40 mg tablet 80 mg PO DAILY triamcinolone acetonide 0.1 % cream 1 appl topical BID PRN (Reason: Inflammation) Rx Instructions: apply to inflamed portions around the open wounds mirtazapine 30 mg tablet 1 tab PO BEDTIME albuterol sulfate [Ventolin HFA] 90 mcg/actuation HFA aerosol inhaler 2 puff inhalation Q4H PRN (Reason: Wheezing) glipizide 5 mg tablet 5 mg PO BID@0800,1600 Eliquis 5 mg tablet 5 mg PO BID Qty: 90 0RF Rx Instructions: Take 10mg(2 tabs) twice daily until 04/28; starting 04/29 take 5mg(1 tab) twice daily oxycodone-acetaminophen 10-325 mg tablet 1 tab PO TID PRN (Reason: Moderate Pain (Scale Score 5-6)) clotrimazole 1 % cream 1 appl TOPICAL BID PRN (Reason: fungus, toes) Rx Instructions: apply to toes mupirocin 2 % ointment 1 applic topical BID Rx Instructions: apply to open wound Discontinued valsartan 80 mg tablet 1 tab PO DAILY amlodipine 10 mg tablet 1 tab PO DAILY Discharge Orders: Discharge Order (Routine); Ordered 06/09/22 Ordered By: Felipe eHnnessy Diet: Diabetic diet Activity on Discharge: As tolerated Stand Alone Forms: Patient Portal Discharge page Care Plan Goals: Full recovery from weakness Health Concerns: Full reocovery form weakness, kidney failure, dehydration Plan of Treatment: continue all meds as recommended and follow up with PcP in a week Full participation in PT bilateral buttock decubiti ulcers, frequent position change, out of bed to chair and ambulation as tolerated, high-protein diet, foam dressing and wound care To short term rehab for less than 30 days Check BMP within a week Assessment: As above
[2022-06-10 11:56] LABS: Glucose, Whole Blood 207 mg/dL (60-115)
[2022-06-10] MEDS: Insulin Lispro 100 UNIT/ML 3 ML VIAL SUBCUT (12:26)
--- NOTE | 2022-06-10 13:29 | MHC.CLN ---
F/U DIET=DIABETIC 2000 KCALS-APPROPRIATE. STAGE II WOUNDS BILATERAL BUTTOCKS. PATIENT DOES NOT WANT SUPPLEMENT DRINKS. VARIABLE INTAKE 25-100% WITH MOST 50-100%. MONITOR FOR PO INTAKE AND SKIN.
== END 2022-06-10 13:49 | disposition home health service (06) | DRG 683 ==
LOC: HO.ED 07:21 → HO.EDOVER 10:22 → HO.S3 12:40
PROVIDERS: Admitting Provider Hospitalist; Emergency Provider Emergency Medicine Emergency Medical Services; PCP Internal Medicine; Visit Provider Internal Medicine
DX: N17.9 Acute kidney failure, unspecified (principal); E87.20 Acidosis, unspecified; G70.00 Myasthenia gravis without (acute) exacerbation; E11.40 Type 2 diabetes mellitus with diabetic neuropathy, unspecified; F39 Unspecified mood [affective] disorder; E78.2 Mixed hyperlipidemia; E87.6 Hypokalemia; B37.2 Candidiasis of skin and nail; L89.152 Pressure ulcer of sacral region, stage 2; I10 Essential (primary) hypertension; L89.322 Pressure ulcer of left buttock, stage 2; L89.312 Pressure ulcer of right buttock, stage 2; E66.9 Obesity, unspecified; Z68.32 Body mass index [BMI] 32.0-32.9, adult; Z20.822 Contact with and (suspected) exposure to COVID-19; Z87.820 Personal history of traumatic brain injury; Z87.891 Personal history of nicotine dependence; Z86.718 Personal history of other venous thrombosis and embolism; Z79.01 Long term (current) use of anticoagulants; Z79.52 Long term (current) use of systemic steroids; Z79.84 Long term (current) use of oral hypoglycemic drugs; Z79.899 Other long term (current) drug therapy
CPT/HCPCS: 0241U; 36415; 80048; 80053; 81001; 82550; 82947; 83605; 85025; 87040; 87635; 97162; 97530; 99285; C1758

== ENCOUNTER 2022-06-22 03:31 | Inpatient (IN) | payer MEDICARE, MEDICAID, SELFPAY ==
[2022-06-22] VITALS (26 sets, daily range): BP systolic 83–148; BP diastolic 38–78; PULSE 78–110; RESP 12–27; TEMP 36.1–37.1; O2SAT 94–99; BMI 32.1
--- NOTE | ~2022-06-22 | CT_ITS ---
EXAMINATION: CT ABDOMEN AND PELVIS WITHOUT CONTRAST CLINICAL INFORMATION: Abdominal pain. COMPARISON: CT abdomen/pelvis 05/19/2022. TECHNIQUE: Multidetector volumetric imaging was performed from the superior aspect of the liver through the pubic symphysis. Sagittal and coronal reformatted images were obtained on the technologist's workstation. This CT examination was performed using dose optimization techniques as appropriate, variously including the following: *Automated exposure control *Adjustment of mA and/or kV according to patient size (this includes techniques or standardized protocols for targeted exams where dose is matched to indication/reason for exam; i.e. extremities or head) *Use of iterative reconstruction technique DLP: 604 mGy-cm FINDINGS: LUNG BASES: Redemonstration of chronic interstitial lung disease with reticulation and traction bronchiectasis in the left greater than right lung bases. Partially imaged coronary vascular calcifications. LIVER, GALLBLADDER, AND BILIARY TREE: Hepatic steatosis. No discrete focal liver lesion noted in this limited noncontrast examination. Cholelithiasis. No findings to suspect acute cholecystitis. No biliary ductal dilatation. PANCREAS: Limited noncontrast examination, unremarkable. SPLEEN: Limited noncontrast examination, unremarkable. ADRENAL GLANDS: No adrenal lesion. KIDNEYS AND URETERS: No nephrolithiasis or hydronephrosis. No significant perinephric fat stranding. BLADDER: Unremarkable. GASTROINTESTINAL TRACT: Small hiatal hernia. The stomach and the small bowel are nondilated. Appendix is not visualized, however there are no regional inflammatory changes to suspect acute appendicitis. Redemonstration of colonic diverticulosis with chronic wall thickening of the sigmoid colon. An irregular soft tissue nodule adjacent to the left sigmoid colon (3:65) is unchanged. No bowel obstruction. ABDOMINAL WALL: No significant hernia is appreciated. LYMPH NODES: No lymphadenopathy. VASCULAR: Extensive atherosclerotic disease. Infrarenal abdominal aorta measures 2.5 cm, unchanged. PELVIC VISCERA: Unremarkable. OSSEOUS STRUCTURES: Degenerative changes of the spine. No acute or aggressive appearing osseous abnormalities. CT/CT abdomen pelvis wo IV con IMPRESSION: 1. Cholelithiasis but no evidence of acute cholecystitis. 2. Diverticulosis with chronic wall thickening of the sigmoid colon and no significant inflammatory changes to suspect acute diverticulitis. 3. An irregular soft tissue nodule adjacent to the sigmoid colon likely represents scarring sequela of prior diverticulitis. Continued follow-up recommended to ensure stability over time. 4. Hepatic steatosis. 5. Small hiatal hernia. 6. Chronic interstitial lung disease.
--- NOTE | ~2022-06-22 | XR_ITS ---
EXAMINATION: XR HAND/WRIST, LEFT CLINICAL INFORMATION: Pain and swelling COMPARISON: None TECHNIQUE: 4 views of the left hand/wrist FINDINGS: No fracture or dislocation. Alignment is anatomic. Degenerative changes are seen throughout the interphalangeal joints with narrowing and small osteophytes. Small marginal erosions are seen at the head of the second digit middle phalanx and fifth digit middle phalanx. Advanced degenerative change of the triscaphe joint with narrowing of the joint space and sclerosis. Moderate degenerative change of the first carpometacarpal joint. There is prominent dorsal soft tissue swelling which is greatest overlying the wrist. XR/XR hand wrist LT IMPRESSION: Prominent dorsal soft tissue swelling at the wrist. No acute osseous abnormality. Degenerative changes throughout the hand and wrist. Small erosions at the second and fifth digit middle phalanges. There could be a component of inflammatory arthritis.
--- NOTE | ~2022-06-22 | IR_ITS ---
EXAMINATION: IR VENOGRAPH AND IVC FILTER CLINICAL INFORMATION: Bilateral DVT, GI bleeding with black stools. Not a candidate for long-term anticoagulation. COMPARISON: None. TECHNIQUE: Following explaining IVC filter placement procedure, benefits and risk to the patient and patient's via phone, a written consent was obtained. Patient was placed supine on angiography table and right groin ultrasound was performed. An optimal site was selected where a right common femoral vein is visualized and marked on the skin. The right groin was then cleaned and draped in usual aseptic manner with 2% chlorhexidine solution. Sterile gown, gloves, mask and catheter was worn by the radiologist and the associates during the exam. A sterile drape was placed around the patient and the camera. 1% lidocaine was injected at the marked site in the right groin. Under sterile ultrasound guidance a single wall needle was advanced and right common femoral vein was punctured. After obtaining venous return a thin guidewire was placed in IVC and needle withdrawn. Over the guidewire, a 5 [place] sheath was placed. The thin guidewire was exchanged for a 0.35 guidewire and the wire was extended into the IVC. Over the guidewire, a 5 [place] pigtail catheter was advanced and placed in the right common iliac vein and guidewire removed. An IVC gram was performed following injection of 50 mL of nonionic contrast Omnipaque 350. The IVC was measured. Subsequently the pigtail was removed. Guidewire was introduced and the sheath was removed. A long dilator with sheath was inserted and placed at L3 superior endplate. The dilator was removed and the filter was loaded and pushed with a pusher and deployed at the L2 vertebra. A single image was obtained. The posterior and the sheath were removed and complete hemostasis achieved at puncture site. Patient tolerated procedure extremely well. FINDINGS: On IVC gram a normal patent IVC, right common iliac and right common femoral vein is noted. The renal veins are visualized entering the IVC at the superior endplate of L2 vertebra. Successful placement of removable IVC filter at the L2 vertebra. There were no immediate complications. Complete hemostasis was achieved at the right groin. FLUOROSCOPY TIME: 2.7 minutes. DOSE AREA PRODUCT: 1454 uGy-m2 (microgray-meter squared). IR/IR IVC filter placement IMPRESSION: Successful placement of infrarenal IVC removable filter following IVC gram. The filter can be removed within 6 months and appointment for patient should be performed if IVC filter is not needed. Fluoroscopy time 2.7 minutes. Dose area product: 1454 cGycm2.
--- NOTE | 2022-06-22 03:42 | ECG_ITS ---
Test Reason : GI bleed Blood Pressure : / mmHG Vent. Rate : 099 BPM Atrial Rate : 099 BPM P-R Int : 132 ms QRS Dur : 090 ms QT Int : 400 ms P-R-T Axes : 060 -32 041 degrees QTc Int : 513 ms Sinus rhythm with marked sinus arrhythmia Left axis deviation Nonspecific ST abnormality Prolonged QT Abnormal ECG When compared with ECG of 19-MAY-2022 19:17, Nonspecific T wave abnormality, worse in Inferior leads QT has lengthened Referred By: Ivy Jennings Electronically Signed By:Vijay Cullen
--- NOTE | 2022-06-22 03:43 | ED.GIBLEED ---
HPI - GI Bleed General Chief complaint: GI Bleed Stated complaint: GI BLEED Time Seen by Provider: 06/22/22 03:41 Source: patient Mode of arrival: EMS History of Present Illness HPI Narrative: 72-year-old male who arrives via EMS from long-term care facility with complaints of ?black stools? it is and is currently on blood thinners. Patient denies any dizziness, headache, shortness of breath, chest pain/palpitations but states that he was vomiting earlier in the day. Related Data Home Medications Medication Instructions Recorded Confirmed azathioprine 50 mg tablet (Imuran) 50 mg PO TID 06/02/20 06/06/22 pyridostigmine bromide 60 mg tablet 1 tab PO QID 06/02/20 06/06/22 quetiapine 25 mg tablet 1 tab PO BEDTIME 06/02/20 06/06/22 gabapentin 300 mg capsule 1 cap PO BID@0800,1600 08/24/21 06/06/22 loperamide 2 mg capsule 2 mg PO BID@0800,1600 PRN Diarrhea 08/24/21 06/06/22 mycophenolate mofetil 500 mg 1 tab PO BID@0800,1600 08/24/21 06/06/22 tablet (CellCept) prednisone 10 mg tablet 25 mg PO DAILY 11/30/21 06/06/22 albuterol sulfate 90 mcg/actuation 2 puff inhalation Q4H PRN Wheezing 01/23/22 06/06/22 aerosol inhaler (Ventolin HFA) furosemide 40 mg tablet 80 mg PO DAILY 01/23/22 06/06/22 mirtazapine 30 mg tablet 1 tab PO BEDTIME 01/23/22 06/06/22 triamcinolone acetonide 0.1 % 1 appl topical BID PRN Inflammation 01/23/22 06/06/22 topical cream glipizide 5 mg tablet 5 mg PO BID@0800,1600 04/21/22 06/06/22 clotrimazole 1 % topical cream 1 appl topical BID PRN fungus, toes 06/06/22 06/06/22 mupirocin 2 % topical ointment 1 applic topical BID 06/06/22 06/06/22 oxycodone-acetaminophen 10 mg-325 1 tab PO TID PRN Moderate Pain 06/06/22 06/06/22 mg tablet (Scale Score 5-6) Previous Rx's Medication Instructions Recorded apixaban 5 mg tablet (Eliquis) 5 mg PO BID #90 tabs 04/22/22 rosuvastatin 20 mg tablet 20 mg PO DAILY 90 days #90 tabs 05/15/22 amlodipine 5 mg tablet 5 mg PO DAILY #30 tabs 06/09/22 furosemide 20 mg tablet (Lasix) 20 mg PO DAILY #30 tabs 06/09/22 oxycodone 5 mg tablet 10 mg PO Q6H PRN Pain, Severe 06/09/22 (Pain Scale 7-10) #20 tabs valsartan 40 mg tablet 40 mg PO DAILY #60 tabs 06/09/22 Allergies Allergy/AdvReac Type Severity Reaction Status Date / Time No Known Allergies Allergy Verified 06/06/22 02:29 [No Known Allergies*] Review of Systems Review of Systems: Pertinent positives and negatives as stated in HPI 10 point review of systems is otherwise negative. [facility] Past Medical History Source: nursing notes reviewed Medical History Aspiration pneumonia CHF (congestive heart failure) Diabetes Diabetes mellitus, type 2 DVT (deep venous thrombosis) DVT (deep venous thrombosis) Edema Erythema of lower extremity Hypercholesteremia Hypertension Intractable nausea and vomiting Leg edema Myasthenia gravis Myasthenia gravis Myasthenia gravis Myocardial infarction Obesity TBI (traumatic brain injury) Family History Family History Mother No problems noted. Father No problems noted. Other No family history of coronary artery disease Social History Social History Household Members: Spouse Housing: House Do you presently have visiting nurse or other home services: Yes Unable to assess alcohol history related to: Unknown Alcohol intake: unknown Patient Tobacco Use Status: Former Tobacco user Tobacco use type: Cigarette Smoked in Last 30 Days: No Second Hand Smoke Exposure: Yes Use of substances other than those prescribed or required for medical reasons: No Substance Use Type: Former Substance User Advance Directives: Yes Advance Directives on File: Yes Advance Directives Date on File: 05/05/21 service: No Current occupational status: retired Physical Exam Vital Signs: Vital Signs: Last Vital Signs Temp 97.9 F 06/22/22 03:43 Pulse 85 06/22/22 06:28 Resp 16 06/22/22 04:05 BP 112/51 L 06/22/22 06:28 Pulse Ox 98 06/22/22 04:05 O2 Del Method 06/22/22 04:05 BMI result Body Mass Index 32.1 VITAL SIGNS: Reviewed. GENERAL: Well developed, well nourished, in no acute distress. HEAD: Normocephalic/atraumatic EYES: PERRLA, EOMI EARS: Ext canals without abnormality, TMs non-bulging and non-erythematous NOSE: Nares patent bilateral OROPHARYNX: no oral lesions noted, posterior pharynx clear, no stigmata of bleeding NECK: Supple, no adenopathy LUNGS: Normal breath sounds. No adventitious sounds or accessory muscle use. CARDIOVASCULAR: Regular rate and rhythm without noted murmurs, no JVD or lower extremity edema. ABDOMEN: Soft, mildly tender on palpation non-distended with bowel sounds. CLEVE: [[employer]Lucila] there is noted mildly inflamed hemorrhoid at the 5 o'clock position and there is noted melena, there is a noted pressure ulcer at the at the sacrum. MUSCULOSKELETAL: No tenderness, deformities, or effusions noted on gross inspection. EXTREMITIES: No cyanosis, clubbing or edema. SKIN: Inspection of the skin reveals no rashes NEUROLOGIC: Alert and oriented x 2. Strength and sensation to light touch were grossly intact x 4. Course Course Course Narrative: 72-year-old male on Eliquis and now presents with vomiting and noted melena with abdominal discomfort. He is otherwise hemodynamically stable, type and screen will be obtained as well as imaging. Patient noted initially to be hypotensive and received 2 L of IV fluid, on review of lab work it would appear this may at least in part be due to dehydration, there is a noted 2g drop since 06/06 and 2 units of PRBCs was ordered for transfusion. Cannot use IV contrast for a GI bleed study given patient's creatinine levels. Given that patient was hypotensive on arrival and has an acute drop in hemoglobin with obvious melena and abdominal discomfort Kcentra was administered. Reevaluation(s) Reevaluation #1: I discussed the case with the inpatient hospitalist who accepts admission. Time: 06:13 Medications Administered Discontinued Medications Generic Name Dose Route Start Last Admin Trade Name Freq PRN Reason Stop Dose Admin Sodium Chloride 2,000 mls @ 999 mls/hr 06/22/22 04:15 06/22/22 04:10 Ns IV 06/22/22 06:15 999 mls/hr .Q2H1M PELON Administration Magnesium Sulfate/Dextrose 1 gm in 100 mls @ 100 mls/hr 06/22/22 04:21 06/22/22 05:53 Magnesium Sulfate/D5w IV 06/22/22 05:20 Infused ONCE ONE Infusion Prothrombin Complex Concent ( 100 mls @ 480 mls/hr 06/22/22 05:25 06/22/22 06:20 Human) 2,500 unit/ IV IV 06/22/22 05:37 480 mls/hr Miscellaneous Supplies .Q13M ONE Administration Pantoprazole Sodium 80 mg 06/22/22 03:42 06/22/22 04:11 Pantoprazole Sodium 40 Mg/10 Ml Vial IVPUSH 06/22/22 03:43 80 mg ONCE ONE Administration Medical Decision Making Lab Data Result Diagrams: 06/22/22 03:54 06/22/22 03:53 Labs: Lab Results 06/22/22 06/22/22 06/22/22 Range/Units 03:53 03:53 03:53 WBC (4.8-10.8) X10*3/uL RBC (4.60-5.80) X10*6/uL Hgb (14.0-18.0) g/dl Hct (42.0-52.0) % MCV (80.0-98.0) fL MCH (27.0-33.0) pg MCHC (31.0-36.0) g/dl RDW (11.0-16.0) % Plt Count (160-400) X10*3/uL MPV (9.4-12.4) fL Immature Gran % (Auto) (0.0-0.4) % Neut % (Auto) (45-73) % Lymph % (Auto) (20-40) % [place] % (Auto) (2-11) % Eos % (Auto) (0-4) % Baso % (Auto) (0-2) % Lymph # (Auto) (1.2-4.9) X10*3/uL [place] # (Auto) (0.1-1.2) X10*3/uL Eos # (Auto) (0.0-0.4) X10*3/uL Baso # (Auto) (0.0-0.2) X10*3/uL Abs Immat Gran (auto) (0.00-0.03) X10*3/uL Absolute Neuts (auto) (2.0-8.3) x10*3/uL Absolute Nucleated RBC (0.0-0.012) X10*3/uL Nucleated RBC % (auto) (0.0-0.2) /100WBC PT 25.5 H (10.0-13.1) SEC INR 2.2 H (0.9-1.1) Sodium 136 (135-145) mmol/L Potassium 3.7 (3.3-5.1) mmol/L Chloride 102 (96-108) mmol/L Carbon Dioxide 18 L (22-29) mmol/L Anion Gap 20 (12-20) BUN 67 H (9-16) mg/dL Creatinine 2.19 H (0.5-1.4) mg/dL Estim Creat Clear Calc 30.8 Estimated GFR 30 Random Glucose 76 (60-115) mg/dL Calcium 8.7 (8.4-10.2) mg/dL Magnesium 1.5 L (1.6-2.6) mg/dL Total Bilirubin 0.4 (0.0-1.0) mg/dL AST 25 (5-37) U/L ALT 17 (0-40) U/L Alkaline Phosphatase 48 (39-117) U/L Troponin I High Sens 12.7 (<3.5-35.0) ng/L Total Protein 4.8 L (6.5-8.0) g/dL Albumin 2.9 L (3.5-5.0) g/dL Urine Color Urine Appearance Urine pH (5.0-9.0) Ur Specific [place] (1.005-1.025) Urine Protein (Neg-Trace) mg/dL Urine Glucose (UA) (Negative) mg/dL Urine Ketones (Negative) mg/dL Urine Blood (Negative) Urine Nitrite (Negative) Ur Leukocyte Esterase (Negative) Stool Occult Blood (NEGATIVE) Influenza Type A (PCR) (Negative) Influenza Type B (PCR) (Negative) RSV RNA Qual (PCR) (Negative) SARS-CoV-2 RNA (RT-PCR) (Negative) Blood Type Antibody Screen Crossmatch 06/22/22 06/22/22 06/22/22 Range/Units 03:53 03:53 03:54 WBC 10.1 (4.8-10.8) X10*3/uL RBC 3.01 L D (4.60-5.80) X10*6/uL Hgb 8.3 L D (14.0-18.0) g/dl Hct 26.5 L D (42.0-52.0) % MCV 88.0 (80.0-98.0) fL MCH 27.6 (27.0-33.0) pg MCHC 31.3 (31.0-36.0) g/dl RDW 18.6 H (11.0-16.0) % Plt Count 394 D (160-400) X10*3/uL MPV 9.6 (9.4-12.4) fL Immature Gran % (Auto) 0.9 H (0.0-0.4) % Neut % (Auto) 80.4 H (45-73) % Lymph % (Auto) 9.7 L (20-40) % [place] % (Auto) 8.5 (2-11) % Eos % (Auto) 0.4 (0-4) % Baso % (Auto) 0.1 (0-2) % Lymph # (Auto) 1.0 L (1.2-4.9) X10*3/uL [place] # (Auto) 0.9 (0.1-1.2) X10*3/uL Eos # (Auto) 0.0 (0.0-0.4) X10*3/uL Baso # (Auto) 0.0 (0.0-0.2) X10*3/uL Abs Immat Gran (auto) 0.09 H (0.00-0.03) X10*3/uL Absolute Neuts (auto) 8.1 (2.0-8.3) x10*3/uL Absolute Nucleated RBC 0.100 H (0.0-0.012) X10*3/uL Nucleated RBC % (auto) 1.0 H (0.0-0.2) /100WBC PT (10.0-13.1) SEC INR (0.9-1.1) Sodium (135-145) mmol/L Potassium (3.3-5.1) mmol/L Chloride (96-108) mmol/L Carbon Dioxide (22-29) mmol/L Anion Gap (12-20) BUN (9-16) mg/dL Creatinine (0.5-1.4) mg/dL Estim Creat Clear Calc Estimated GFR Random Glucose (60-115) mg/dL Calcium (8.4-10.2) mg/dL Magnesium (1.6-2.6) mg/dL Total Bilirubin (0.0-1.0) mg/dL AST (5-37) U/L ALT (0-40) U/L Alkaline Phosphatase (39-117) U/L Troponin I High Sens (<3.5-35.0) ng/L Total Protein (6.5-8.0) g/dL Albumin (3.5-5.0) g/dL Urine Color Urine Appearance Urine pH (5.0-9.0) Ur Specific [place] (1.005-1.025) Urine Protein (Neg-Trace) mg/dL Urine Glucose (UA) (Negative) mg/dL Urine Ketones (Negative) mg/dL Urine Blood (Negative) Urine Nitrite (Negative) Ur Leukocyte Esterase (Negative) Stool Occult Blood (NEGATIVE) Influenza Type A (PCR) NEGATIVE (Negative) Influenza Type B (PCR) NEGATIVE (Negative) RSV RNA Qual (PCR) NEGATIVE (Negative) SARS-CoV-2 RNA (RT-PCR) NEGATIVE (Negative) Blood Type A Positive Antibody Screen NEGATIVE Crossmatch See Detail 06/22/22 06/22/22 Range/Units 04:54 05:31 WBC (4.8-10.8) X10*3/uL RBC (4.60-5.80) X10*6/uL Hgb (14.0-18.0) g/dl Hct (42.0-52.0) % MCV (80.0-98.0) fL MCH (27.0-33.0) pg MCHC (31.0-36.0) g/dl RDW (11.0-16.0) % Plt Count (160-400) X10*3/uL MPV (9.4-12.4) fL Immature Gran % (Auto) (0.0-0.4) % Neut % (Auto) (45-73) % Lymph % (Auto) (20-40) % [place] % (Auto) (2-11) % Eos % (Auto) (0-4) % Baso % (Auto) (0-2) % Lymph # (Auto) (1.2-4.9) X10*3/uL [place] # (Auto) (0.1-1.2) X10*3/uL Eos # (Auto) (0.0-0.4) X10*3/uL Baso # (Auto) (0.0-0.2) X10*3/uL Abs Immat Gran (auto) (0.00-0.03) X10*3/uL Absolute Neuts (auto) (2.0-8.3) x10*3/uL Absolute Nucleated RBC (0.0-0.012) X10*3/uL Nucleated RBC % (auto) (0.0-0.2) /100WBC PT (10.0-13.1) SEC INR (0.9-1.1) Sodium (135-145) mmol/L Potassium (3.3-5.1) mmol/L Chloride (96-108) mmol/L Carbon Dioxide (22-29) mmol/L Anion Gap (12-20) BUN (9-16) mg/dL Creatinine (0.5-1.4) mg/dL Estim Creat Clear Calc Estimated GFR Random Glucose (60-115) mg/dL Calcium (8.4-10.2) mg/dL Magnesium (1.6-2.6) mg/dL Total Bilirubin (0.0-1.0) mg/dL AST (5-37) U/L ALT (0-40) U/L Alkaline Phosphatase (39-117) U/L Troponin I High Sens (<3.5-35.0) ng/L Total Protein (6.5-8.0) g/dL Albumin (3.5-5.0) g/dL Urine Color Yellow Urine Appearance Clear Urine pH 5.0 (5.0-9.0) Ur Specific [place] 1.020 (1.005-1.025) Urine Protein Trace (Neg-Trace) mg/dL Urine Glucose (UA) Negative (Negative) mg/dL Urine Ketones Trace (Negative) mg/dL Urine Blood Negative (Negative) Urine Nitrite Negative (Negative) Ur Leukocyte Esterase Negative (Negative) Stool Occult Blood POSITIVE (NEGATIVE) Influenza Type A (PCR) (Negative) Influenza Type B (PCR) (Negative) RSV RNA Qual (PCR) (Negative) SARS-CoV-2 RNA (RT-PCR) (Negative) Blood Type Antibody Screen Crossmatch Independent Interpretation I performed an independent interpretation of an: EKG Interpretation: Sinus rhythm, HR-99, no STEMI, RI/QRS are within normal limits, QTC is prolonged 513 Critical Care Time Critical Care Time Critical Care Time: Yes Total Critical Care Time: 45 Attestation: I personally attest to this time spent taking care of the patient. Discharge Plan Discharge Clinical Impression: GI bleed, Acute on chronic renal failure, Dehydration Patient Disposition: Admitted As Inpatient
[2022-06-22 03:59] LABS: MANUAL DIFF FLAG NO
[2022-06-22 04:02] LABS: Basophils Percent Auto 0.1 % (0-2); Eosinophils Percent Auto 0.4 % (0-4); Hematocrit 26.5 % (42.0-52.0); Hemoglobin 8.3 g/dl (14.0-18.0); Imm Gran Abs Auto 0.09 X10*3/uL (0.00-0.03); Imm Gran Pct Auto 0.9 % (0.0-0.4); Lymphocytes Percent Auto 9.7 % (20-40); Mean Corpuscular HGB Conc 31.3 g/dl (31.0-36.0); Mean Corpuscular Hemoglobin 27.6 pg (27.0-33.0); Mean Platelet Volume 9.6 fL (9.4-12.4); Monocytes Absolute Auto 0.9 X10*3/uL (0.1-1.2); Monocytes Percent Auto 8.5 % (2-11); Neutrophils Absolute Auto 8.1 x10*3/uL (2.0-8.3); Neutrophils Percent Auto 80.4 % (45-73); Platelet Count 394 X10*3/uL (160-400); Red Blood Count 3.01 X10*6/uL (4.60-5.80); Red Cell Distribution Width 18.6 % (11.0-16.0); White Blood Count 10.1 X10*3/uL (4.8-10.8)
[2022-06-22] MEDS: 0.9 % Sodium Chloride 2,000 ML 999 ML IV (04:10)
[2022-06-22] MEDS: Pantoprazole Sodium 40 MG/10 ML VIAL 80 MG IVPUSH (04:11)
[2022-06-22 04:17] LABS: Alanine Aminotransferase 17 U/L (0-40); Albumin Level 2.9 g/dL (3.5-5.0); Alkaline Phosphatase 48 U/L (39-117); Anion Gap 20 (12-20); Aspartate Amino Transferase 25 U/L (5-37); Bilirubin Total 0.4 mg/dL (0.0-1.0); Blood Urea Nitrogen 67 mg/dL (9-16); Calcium 8.7 mg/dL (8.4-10.2); Carbon Dioxide 18 mmol/L (22-29); Chloride 102 mmol/L (96-108); Creatinine Clr Calc Pharmacy 30.8; Estimated Glomerular Filt Rate 30; Glucose Random 76 mg/dL (60-115); INTERNATIONAL NORM RATIO 2.2 (0.9-1.1); Magnesium 1.5 mg/dL (1.6-2.6); Potassium 3.7 mmol/L (3.3-5.1); Prothrombin Time 25.5 SEC (10.0-13.1); Sodium 136 mmol/L (135-145); Total Protein 4.8 g/dL (6.5-8.0)
[2022-06-22 04:27] LABS: Troponin-I High Sensitivity 12.7 ng/L (<3.5-35.0)
[2022-06-22 04:38] LABS: Influenza A PCR NEGATIVE (Negative); Influenza B PCR NEGATIVE (Negative); Resp Syncy Virus RNA Qual PCR NEGATIVE (Negative); SARS COV2 PCR INHOUSE NEGATIVE (Negative)
[2022-06-22] MEDS: Magnesium Sulfate/D5W 1 GM/100 ML PIGGYBACK IV (04:52)
[2022-06-22 05:02] LABS: Appearance Urine Clear; Color Urine Yellow; Glucose Urine UA Negative (Negative); Leukocyte Esterase Urine Negative (Negative); Nitrite Urine Negative (Negative); Urine Blood Negative (Negative); Urine Ketones Trace mg/dL (Negative); Urine Protein Trace mg/dL (Neg-Trace)
[2022-06-22 05:36] LABS: OBS Int Ctl Valid YES; OBS1 POSITIVE (NEGATIVE)
--- NOTE | 2022-06-22 05:41 | PC.NURSE ---
pt is off the unit at this time. blood products are ready.
--- NOTE | 2022-06-22 05:51 | PC.NURSE ---
overnight pharmacy stated that it doesnt matter which is infused first, Kcentra or blood product. Kcentra will be given first due to it is a shorter length of time to infuse.
[2022-06-22] MEDS: Hum Prothrombin Cplx(PCC)4Fact 2,500 UNIT in Container,Empty 0 ML 480 UNIT IV (06:20)
--- NOTE | 2022-06-22 07:51 | PC.NURSE ---
patient a/o to self and situation . pearrla , patient wears glasses . heart rate regular at 98 beats per minute . breathing even and unlabored . lungs clear and unlabored . skin is pink warm and dry . dry red skin noted bilaterally around ankles . coccyx and buttocks is excoriated from loose bowel movements r/t GI bleed .patient had 1 large black movement this am . patient changed and applied barrier cream to skin, repositioned in side to relieve discomfort . abdomen soft , non tender . positive bowel sounds throughout . First unit of blood started , no reaction noted . patient continues on monitor . bed at lowest position . patient aware of plan of care .
--- NOTE | 2022-06-22 09:13 | PHA.MEDREC ---
Pharmacy Consult ? Medication Reconciliation Pharmacy has completed the medication reconciliation. List from [place] of [facility]
--- NOTE | 2022-06-22 11:14 | MHC.EDTECH ---
doctor ordered the pt to ambulate however pt states to this tech that he has not been ambulatory for about a month due to an issue with his muscles. rn aware.
--- NOTE | 2022-06-22 11:33 | P.HPHOSP_ITS ---
History of Present Illness Date of Service: 06/22/22 Attending physician on admission: Wale Pemberton Chief Complaint: black stool 71-year-old male with a pertinent history of traumatic brain injury s/p cardiac arrest with ROSC 8 years ago, type 2 diabetes mellitus, CKD stage 3, myasthenia gravis, essential hypertension, mixed hyperlipidemia, and chronic bilateral lower extremity edema likely secondary to venous stasis, with recent admission 04/21 for bilateral DVT started on eliquis presented to the ED via EMS from [facility] where he has been residing for [facility] due to episodes of melena noted by staff. Upon arrival to facility, EMS noted BP 88/54, EKG sinus tach rate 113. Pt had 1 episode coffee gorunds emesis enroute to ED. on arrival, patient became hypotensive at 83/50, HR 108. No leukocytosis. H/H 8.3/26.5% (06/06/22 H/H 10.6/33.3%). Creat 2.19 (baseline 1.60), BUN 67, lytes normal except CO2 18, mag 1.5. UA unremarkable. Stool occult blood positive. CT abdomen/pelvis without any acute abnormality but showing cholelithiasis, diverticulosis with chronic wall thickening of the sigmoid colon, a regular soft tissue nodule adjacent to sigmoid colon likely related to scarring as sequela of prior diverticulitis outpatient follow-up advised, hepatic steatosis, hiatal hernia, chronic interstitial lung disease. In the ED, patient treated with 2 units packed red blood cells for acute blood loss anemia, KCentra, 1 g magnesium sulfate IV, 2 L bolus IV NS and 80 mg pantoprazole IV. Patient to be admitted for acute blood loss anemia secondary to upper GI bleed. Review of Systems Review of Systems: General: No fevers, malaise, unintentional weight loss HEENT: No blurred vision, diplopia. Cardiovascular: No chest pain, palpitations, or leg edema Respiratory: No shortness of breath, wheezing, cough GI: +nausea, +vomiting. No abdominal pain, diarrhea, constipation, melena, hematochezia : No dysuria, hematuria, increased urinary frequency MSK: No myalgia, back pain Neuro: No headaches, weakness, paresthesias Skin: No rashes or lesions [facility] Medical History (Updated 06/22/22 @ 11:50 by ANAND Adames) Acute hyperglycemia Ascites Aspiration pneumonia Candidiasis, intertriginous CHF (congestive heart failure) Diabetes Diabetes mellitus, type 2 DVT (deep venous thrombosis) Edema Erythema of lower extremity Hypercholesteremia Hypertension Intractable nausea and vomiting Leg edema Microscopic hematuria Myasthenia gravis Myocardial infarction Obesity Pneumonia due to COVID-19 virus TBI (traumatic brain injury) Urinary tract infection Weakness Family History Mother No problems noted. Father No problems noted. Other No family history of coronary artery disease Social History Household Members: Spouse Housing: House Do you presently have visiting nurse or other home services: Yes Unable to assess alcohol history related to: Unknown Alcohol intake: former Patient Tobacco Use Status: Former Tobacco user Tobacco use type: Cigarette Smoked in Last 30 Days: No Second Hand Smoke Exposure: Yes Use of substances other than those prescribed or required for medical reasons: No Substance Use Type: Former Substance User Advance Directives: Yes Advance Directives on File: Yes Advance Directives Date on File: 05/05/21 service: No Current occupational status: retired [id number] Allergies Allergy/AdvReac Type Severity Reaction Status Date / Time No Known Allergies Allergy Verified 06/06/22 02:29 [No Known Allergies*] Active Medications: Current Medications Acetaminophen (Acetaminophen 325 Mg Tablet) 650 mg PO Q6H PRN PRN Reason: Pain, Mild (Pain Scale 1-3) Atorvastatin Calcium (Atorvastatin Calcium 80 Mg Tablet) 80 mg PO DAILY PELON Azathioprine (Azathioprine 50 Mg Tablet) 50 mg PO TID PELON Clotrimazole (Clotrimazole 1 % Cream 15 Gm Tube) 1 appl TOPICAL BID PRN; Protocol PRN Reason: fungus, toes Mirtazapine (Mirtazapine 30 Mg Tablet) 30 mg PO BEDTIME PELNO Mycophenolate Mofetil (Mycophenolate Mofetil 250 Mg Capsule) 500 mg PO B ID@0800,1600 PELON Ondansetron HCl (Ondansetron Hcl 4 Mg/2 Ml Vial) 4 mg IVPUSH Q8H PRN PRN Reason: Nausea and Vomiting Pantoprazole Sodium (Pantoprazole Sodium 40 Mg/10 Ml Vial) 40 mg IVPUSH BID@0630,1630 [facility] Pyridostigmine [place] (Pyridostigmine [place] 60 Mg Tablet) 60 mg PO QID [facility] Quetiapine Fumarate (Quetiapine Fumarate 25 Mg Tablet) 25 mg PO BEDTIME [facility] Sodium Chloride (0.9 % Sodium Chloride Flush 3 Ml Syringe) 3 ml IVFLUSH QSHIFT [facility] Home Medications Medication Instructions Recorded Confirmed Last Taken Type azathioprine 50 mg tablet (Imuran) 50 mg PO TID 06/02/20 06/22/22 05/19/22 History pyridostigmine bromide 60 mg tablet 1 tab PO QID 06/02/20 06/22/22 05/19/22 History quetiapine 25 mg tablet 1 tab PO BEDTIME 06/02/20 06/22/22 05/19/22 History gabapentin 300 mg capsule 1 cap PO BID@0800,1600 08/24/21 06/22/22 05/19/22 History loperamide 2 mg capsule 2 mg PO BID@0800,1600 PRN Diarrhea 08/24/21 06/22/22 05/19/22 History mycophenolate mofetil 500 mg 1 tab PO BID@0800,1600 08/24/21 06/22/22 05/19/22 History tablet (CellCept) prednisone 10 mg tablet 25 mg PO DAILY 11/30/21 06/22/22 05/19/22 History albuterol sulfate 90 mcg/actuation 2 puff inhalation Q4H PRN Wheezing 01/23/22 06/22/22 05/19/22 History aerosol inhaler (Ventolin HFA) mirtazapine 30 mg tablet 1 tab PO BEDTIME 01/23/22 06/22/22 05/19/22 History triamcinolone acetonide 0.1 % 1 appl topical BID PRN Inflammation 01/23/22 06/22/22 05/19/22 History topical cream clotrimazole 1 % topical cream 1 appl topical BID PRN fungus, toes 06/06/22 06/22/22 Unknown History mupirocin 2 % topical ointment 1 applic topical BID 06/06/22 06/22/22 Unknown History acetaminophen 650 mg tablet 650 mg PO Q4H PRN Pain 06/22/22 06/22/22 Unknown History ondansetron HCl 4 mg tablet 4 mg PO Q8H PRN Nausea 06/22/22 06/22/22 Unknown History Physical Exam Vital Signs and Narrative: Vital Signs: Last Vital Signs Temp 97.8 F 06/22/22 10:18 Pulse 95 06/22/22 11:10 Resp 16 06/22/22 11:10 BP 106/60 06/22/22 11:10 Pulse Ox 96 06/22/22 11:10 O2 Del Method 06/22/22 11:10 BMI result Body Mass Index 32.1 Constitutional - Awake and Alert, No apparent distress Eyes - PERRLA, EOMI Cardiovascular - S1S2, RRR, No edema Respiratory - Normal lung expansion, Normal respiratory effort, No respiratory distress, CTA bilaterally Gastrointestinal - NT / ND; +BS; No rebound or guarding Extremities - no calf tenderness bilaterally, no swelling Skin - Warm/Dry. Vanous stasis hyperpigmentation BLE. Excoriated stage I/II decubitus ulcer bilateral buttock Neurological - Alert & oriented x3, CN II-XII in tact, 3/5 strength BUE and BLE Psychological - Appropriate affect Results Labs CBC and Chem 7: 06/22/22 03:54 06/22/22 03:53 Labs: Laboratory Results - last 24 hr 06/22/22 06/22/22 06/22/22 03:53 03:53 03:53 MCV MCH MCHC RDW Plt Count MPV Immature Gran % (Auto) Neut % (Auto) Lymph % (Auto) [place] % (Auto) Eos % (Auto) Baso % (Auto) Lymph # (Auto) [place] # (Auto) Eos # (Auto) Baso # (Auto) Abs Immat Gran (auto) Absolute Neuts (auto) Absolute Nucleated RBC Nucleated RBC % (auto) PT 25.5 H INR 2.2 H Anion Gap 20 Estim Creat Clear Calc 30.8 Estimated GFR 30 Random Glucose 76 Calcium 8.7 Magnesium 1.5 L Total Bilirubin 0.4 AST 25 ALT 17 Alkaline Phosphatase 48 Troponin I High Sens 12.7 Total Protein 4.8 L Albumin 2.9 L Urine Color Urine Appearance Urine pH Ur Specific [place] Urine Protein Urine Glucose (UA) Urine Ketones Urine Blood Urine Nitrite Ur Leukocyte Esterase Stool Occult Blood Influenza Type A (PCR) Influenza Type B (PCR) RSV RNA Qual (PCR) SARS-CoV-2 RNA (RT-PCR) Blood Type Antibody Screen Crossmatch 06/22/22 06/22/22 06/22/22 03:53 03:53 03:54 MCV 88.0 MCH 27.6 MCHC 31.3 RDW 18.6 H Plt Count 394 D MPV 9.6 Immature Gran % (Auto) 0.9 H Neut % (Auto) 80.4 H Lymph % (Auto) 9.7 L [place] % (Auto) 8.5 Eos % (Auto) 0.4 Baso % (Auto) 0.1 Lymph # (Auto) 1.0 L [place] # (Auto) 0.9 Eos # (Auto) 0.0 Baso # (Auto) 0.0 Abs Immat Gran (auto) 0.09 H Absolute Neuts (auto) 8.1 Absolute Nucleated RBC 0.100 H Nucleated RBC % (auto) 1.0 H PT INR Anion Gap Estim Creat Clear Calc Estimated GFR Random Glucose Calcium Magnesium Total Bilirubin AST ALT Alkaline Phosphatase Troponin I High Sens Total Protein Albumin Urine Color Urine Appearance Urine pH Ur Specific [place] Urine Protein Urine Glucose (UA) Urine Ketones Urine Blood Urine Nitrite Ur Leukocyte Esterase Stool Occult Blood Influenza Type A (PCR) NEGATIVE Influenza Type B (PCR) NEGATIVE RSV RNA Qual (PCR) NEGATIVE SARS-CoV-2 RNA (RT-PCR) NEGATIVE Blood Type A Positive Antibody Screen NEGATIVE Crossmatch See Detail 06/22/22 06/22/22 04:54 05:31 MCV MCH MCHC RDW Plt Count MPV Immature Gran % (Auto) Neut % (Auto) Lymph % (Auto) [place] % (Auto) Eos % (Auto) Baso % (Auto) Lymph # (Auto) [place] # (Auto) Eos # (Auto) Baso # (Auto) Abs Immat Gran (auto) Absolute Neuts (auto) Absolute Nucleated RBC Nucleated RBC % (auto) PT INR Anion Gap Estim Creat Clear Calc Estimated GFR Random Glucose Calcium Magnesium Total Bilirubin AST ALT Alkaline Phosphatase Troponin I High Sens Total Protein Albumin Urine Color Yellow Urine Appearance Clear Urine pH 5.0 Ur Specific [place] 1.020 Urine Protein Trace Urine Glucose (UA) Negative Urine Ketones Trace Urine Blood Negative Urine Nitrite Negative Ur Leukocyte Esterase Negative Stool Occult Blood POSITIVE Influenza Type A (PCR) Influenza Type B (PCR) RSV RNA Qual (PCR) SARS-CoV-2 RNA (RT-PCR) Blood Type Antibody Screen Crossmatch Imaging Radiologist's Impressions: Impressions Abdomen/Pelvis CT 06/22/22 05:45 IMPRESSION: 1. Cholelithiasis but no evidence of acute cholecystitis. 2. Diverticulosis with chronic wall thickening of the sigmoid colon and no significant inflammatory changes to suspect acute diverticulitis. 3. An irregular soft tissue nodule adjacent to the sigmoid colon likely represents scarring sequela of prior diverticulitis. Continued follow-up recommended to ensure stability over time. 4. Hepatic steatosis. 5. Small hiatal hernia. 6. Chronic interstitial lung disease. Assessment and Plan (1) GI bleed: Status: Acute (2) Acute on chronic renal failure: Status: Acute Plan 71-year-old male with a pertinent history of traumatic brain injury s/p cardiac arrest with ROSC 8 years ago, type 2 diabetes mellitus, CKD stage 3, myasthenia gravis, essential hypertension, mixed hyperlipidemia, and chronic bilateral lower extremity edema likely secondary to venous stasis, with recent admission 04/21 and 05/19 for bilateral DVT started on eliquis admitted for acute blood loss anemia secondary to upper GI bleed. #Acute blood loss anemia secondary to upper GI bleed -baseline chronic normocytic anemia secondary to CKD stage III -patient with stool occult blood positive with multiple episodes melena and single episode coffee-ground emesis -transfused 2 units packed red blood cells in ED -Given 2500 units Kcentra in ED -Hold eliquis -IV PPI BID -Appreciate GI input -Monitor on telemetry -Close monitoring VS -Follow CBC #[place] with baseline CKD stage 3 due to hypovolemia -Creat 2.19 (baseline 1.60), BUN 67 -Transfusion as above -2L IVF bolus -Follow BMP #Hypotension- secondary to acute blood loss anemia -Resolved with IVF bolus -BP 125/58 on exam -Close montioring VS # Acute DVT bilateral peroneal veins- dx 04/21 -hold eliquis due to GI bleed #Chronic lower extremity edema- likely related to chronic venous stasis -Continue lasix once BP stable #Stage I/II decubitus ulcer bilateral buttock-present on arrival -Barrier cream, reposition q2h #.? 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 Myasthenia gravis -continue prednisone, mycophenolate and azathioprine -PT consult for weakness #.? 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 Essential hypertension -Hold home meds for now, bp soft #history cardiac arrest 8 years ago -Continue rosuvastatin -patient exhibits repetitions secondary to anoxic brain injury-baseline DNR/DNI DVT prophylaxis-compression therapy Patient requires inpatient stay of at least 2 midnights for management acute upper GI bleed with acute blood loss anemia requiring transfusion, expert consultation, and close monitoring for hemodynamic stability. Time Spent With Patient Time: Total time managing care of this patient today ____ minutes. Quality Stroke Does the patient have a stroke diagnosis?: No VTE Prior VTE?: Yes VTE Risk Level:: Medical - moderate - high VTE Device Contraindication: N/A - Device Ordered VTE Drug Contraindication: Treatment Not Tolerated
[2022-06-22] MEDS: oxyCODONE HCl Immed Release 5 MG TABLET PO ×2 (13:28→21:42)
[2022-06-22] MEDS: pyRIDostigmine bromide 60 MG TABLET PO ×3 (13:29→20:24)
--- NOTE | 2022-06-22 13:31 | PC.NURSE ---
patient medicated with 5mg of oxycodone for 9 out 10 pain level in is buttocks , skin break down from loose stool r/t GI bleed. patient has had no more episodes since this AM . has continued to reposition side to side in bed and apply barrier cream to area . patient aware of plan of care .
--- NOTE | 2022-06-22 16:48 | PC.NURSE ---
Report given to Asha Parra . patient ready for transport to floor . patient aware of plan of care .
[2022-06-22] MEDS: 0.9 % Sodium Chloride Flush 3 ML SYRINGE IVFLUSH (16:55)
[2022-06-22] MEDS: Pantoprazole Sodium 40 MG/10 ML VIAL IVPUSH (16:55)
[2022-06-22] MEDS: mycophenolate mofetiL 250 MG CAPSULE 500 MG PO (18:59)
[2022-06-22] MEDS: QUEtiapine Fumarate 25 MG TABLET PO (20:23)
[2022-06-22] MEDS: Mirtazapine 30 MG TABLET PO (20:23)
[2022-06-22] MEDS: azaTHIOprine 50 MG TABLET PO (20:24)
[2022-06-22 20:41] LABS: Glucose, Whole Blood 71 mg/dL (60-115)
[2022-06-22] MEDS: ondansetron HCL 4 MG/2 ML VIAL IVPUSH (21:42)
[2022-06-23] VITALS (9 sets, daily range): BP systolic 112–170; BP diastolic 56–85; PULSE 82–97; RESP 18–20; TEMP 36.2–36.6; O2SAT 97–99; BMI 32.1
[2022-06-23] MEDS: Pantoprazole Sodium 40 MG/10 ML VIAL IVPUSH ×2 (05:33→15:44)
--- NOTE | 2022-06-23 07:31 | PM.EVENT ---
Event Note Date of Service: 06/23/22 Event Note: GI note dictated EGD planned later today for further evaluation of GI bleeding Time Spent With Patient Time: Total time managing care of this patient today ____ minutes.
[2022-06-23 07:50] LABS: Hematocrit 30.5 % (42.0-52.0); Hemoglobin 9.9 g/dl (14.0-18.0); Mean Corpuscular HGB Conc 32.5 g/dl (31.0-36.0); Mean Corpuscular Hemoglobin 28.9 pg (27.0-33.0); Mean Corpuscular Volume 89.2 fL (80.0-98.0); Mean Platelet Volume 9.8 fL (9.4-12.4); Red Blood Count 3.42 X10*6/uL (4.60-5.80); Red Cell Distribution Width 17.3 % (11.0-16.0); White Blood Count 6.3 X10*3/uL (4.8-10.8)
[2022-06-23 07:58] LABS: Glucose, Whole Blood 80 mg/dL (60-115)
[2022-06-23 08:15] LABS: Anion Gap 14 (12-20); Calcium 8.3 mg/dL (8.4-10.2); Carbon Dioxide 16 mmol/L (22-29); Chloride 115 mmol/L (96-108); Glucose Random 76 mg/dL (60-115); Potassium 3.8 mmol/L (3.3-5.1); Sodium 141 mmol/L (135-145)
[2022-06-23 08:25] LABS: NRBC Pct Auto 1.3 /100WBC (0.0-0.2)
[2022-06-23 08:27] LABS: Platelet Count 251 X10*3/uL (160-400)
[2022-06-23 08:29] LABS: Blood Urea Nitrogen 33 mg/dL (9-16); Creatinine Clr Calc Pharmacy 77.4; Estimated Glomerular Filt Rate > 60
[2022-06-23] MEDS: mycophenolate mofetiL 250 MG CAPSULE 500 MG PO ×2 (09:05→15:44)
[2022-06-23] MEDS: Atorvastatin Calcium 80 MG TABLET PO (09:06)
[2022-06-23] MEDS: azaTHIOprine 50 MG TABLET PO ×3 (09:06→20:03)
[2022-06-23] MEDS: pyRIDostigmine bromide 60 MG TABLET PO ×3 (09:06→20:03)
[2022-06-23] MEDS: ondansetron HCL 4 MG/2 ML VIAL IVPUSH (09:06)
--- NOTE | 2022-06-23 09:31 | MHC.CM.PN ---
CM attempted to meet with Patient at bedside but he appeared to be sleeping soundly; CM spoke with Daughter/Lucila at [phone] and addressed IMM with her (original to be mailed certified letter to Lucila and a copy has been placed on the chart). [facility] [place] [facility] but [facility] Patient lives in a house with his , Daughter, Son-in-Law and Grandson and he uses a walker to assist with mobility. CM has initiated and will follow for dc planning. Patient has received [employer] vax x3 and his PCP is Dr. Justino Lara.
[2022-06-23] MEDS: Phytonadione (Vit K1) 10 MG in 0.9 % Sodium Chloride 50 ML 51 MG IV (09:44)
[2022-06-23] MEDS: Acetaminophen 325 MG TABLET 650 MG PO ×2 (10:49→17:25)
[2022-06-23] MEDS: oxyCODONE HCl Immed Release 5 MG TABLET PO ×3 (10:49→20:03)
--- NOTE | 2022-06-23 11:09 | MHC.CLN ---
RE: CONSULT PT WITH INCREASED NUTRITION RISK R/T PRESSURE INJURY PT IS CURRENTLY NPO R/T GIB WHEN DIET TO ADVANCE; RECOMMEND 2200DM 2GM NA DIET RECOMMEND ADDING GLUCERNA BID TO INCREASE KCALS AND PROMOTE WOUND HEALING SUPP TO PROVIDE 474KCALS, 20G PROTEIN MONITOR PO INTAKE CLOSELY SEE ALSO FULL CLINICAL NUTRITION ASSESSMENT
[2022-06-23 11:45] LABS: Glucose, Whole Blood 94 mg/dL (60-115)
--- NOTE | 2022-06-23 12:24 | PC.NURSE ---
Floor RN verified that patient is NPO, has been complaining of nausea since admission. emesis bag at bedside. no active vomiting. IV to right AC patent and dressing C/D/I. Patient complains of generalized pain. Pain medications given on floor prior to SSS arrival.
--- NOTE | 2022-06-23 12:56 | P.CONAN_ITS ---
HPI - Anesthesia Eval Consult details Narrative: 72 yo male patient for EGD with gold probe PMFSH Active Problems Active Problems: All Active Problems (Updated 06/22/22 @ 11:50 by ANAND Adames) GI bleed (Acute)s/p 2u PRBCs. Hct 30.5 Acute on chronic renal failure (Acute) Dehydration (Acute) Weakness (Acute) Decubital ulcer (Acute) RI 09/22/19 per - Unconscious- ICU intubated. TBI Myasthenia gravis- stable on meds Was on eliquis for DVT ? Unknown surgical history Denies chest pain Memory deficit- unsure of medical history Past Medical History Medical History Acute hyperglycemia Ascites Aspiration pneumonia Candidiasis, intertriginous CHF (congestive heart failure) Diabetes Diabetes mellitus, type 2 DVT (deep venous thrombosis) Edema Erythema of lower extremity Hypercholesteremia Hypertension Intractable nausea and vomiting Leg edema Microscopic hematuria Myasthenia gravis Myocardial infarction Obesity Pneumonia due to COVID-19 virus TBI (traumatic brain injury) Urinary tract infection Weakness Family History Family History Mother No problems noted. Father No problems noted. Other No family history of coronary artery disease Family history of problems with anesthesia: No Surgical History Surgical History (Updated 06/23/22 @ 13:39 by Helga Gu RN) Hx of colonoscopy History of Problems with Anesthesia: No Social History Social History Household Members: Family Housing: House Do you presently have visiting nurse or other home services: Yes Unable to assess alcohol history related to: Unknown Alcohol intake: former Patient Tobacco Use Status: Former Tobacco user Tobacco use type: Cigarette Second Hand Smoke Exposure: Yes Substance Use Type: Former Substance User Advance Directives Date on File: 05/05/21 service: No Current occupational status: retired Meds Allergies Allergy/AdvReac Type Severity Reaction Status Date / Time No Known Allergies Allergy Verified 06/23/22 12:20 [No Known Allergies*] Active Medications: Current Medications Acetaminophen (Acetaminophen 325 Mg Tablet) 650 mg PO Q6H PRN PRN Reason: Pain, Mild (Pain Scale 1-3) Last Admin: 06/23/22 10:49 Dose: 650 mg Atorvastatin Calcium (Atorvastatin Calcium 80 Mg Tablet) 80 mg PO DAILY [facility] Last Admin: 06/23/22 09:06 Dose: 80 mg Azathioprine (Azathioprine 50 Mg Tablet) 50 mg PO TID [facility] Last Admin: 06/23/22 09:06 Dose: 50 mg Clotrimazole (Clotrimazole 1 % Cream 15 Gm Tube) 1 appl TOPICAL BID PRN; Pro tocol PRN Reason: fungus, toes Dextrose (Dextrose 50 % 25 Gm/50 Ml Syringe) 25 gm IVPUSH Q15M PRN; Protocol PRN Reason: per Hypoglycemia Standing Ord. Glucose (Glucose Gel 15 Gm Gel..Gram.) 15 gm PO Q15M PRN; Protocol PRN Reason: per Hypoglycemia Standing Ord. Insulin Human Lispro (Insulin Lispro 100 Unit/Ml 3 Ml Vial) 0 unit SUBCUT QIDACHS [facility]; Protocol Last Admin: 06/23/22 11:51 Dose: Not Given Mirtazapine (Mirtazapine 30 Mg Tablet) 30 mg PO BEDTIME [facility] Last Admin: 06/22/22 20:23 Dose: 30 mg Mycophenolate Mofetil (Mycophenolate Mofetil 250 Mg Capsule) 500 mg PO BID@0800,1600 [facility] Last Admin: 06/23/22 09:05 Dose: 500 mg Ondansetron HCl (Ondansetron Hcl 4 Mg/2 Ml Vial) 4 mg IVPUSH Q8H PRN PRN Reason: Nausea and Vomiting Last Admin: 06/23/22 09:06 Dose: 4 mg Oxycodone HCl (Oxycodone Hcl Immed Release 5 Mg Tablet) 5 mg PO Q4H PRN PRN Reason: Pain, Moderate (Pain Scale 4-6 Last Admin: 06/23/22 10:49 Dose: 5 mg Pantoprazole Sodium (Pantoprazole Sodium 40 Mg/10 Ml Vial) 40 mg IVPUSH BID@0630,1630 [facility] Last Admin: 06/23/22 05:33 Dose: 40 mg Pyridostigmine Olga (Pyridostigmine Olga 60 Mg Tablet) 60 mg PO QID [facility] Last Admin: 06/23/22 12:15 Dose: Not Given Quetiapine Fumarate (Quetiapine Fumarate 25 Mg Tablet) 25 mg PO BEDTIME [facility] Last Admin: 06/22/22 20:23 Dose: 25 mg Sodium Chloride (0.9 % Sodium Chloride Flush 3 Ml Syringe) 3 ml IVFLUSH QSHIFT [facility] Last Admin: 06/23/22 07:07 Dose: Not Given Home Medications Medication Instructions Recorded Confirmed Last Taken Type azathioprine 50 mg tablet (Imuran) 50 mg PO TID 06/02/20 06/22/22 05/19/22 History pyridostigmine bromide 60 mg tablet 1 tab PO QID 06/02/20 06/22/22 05/19/22 History quetiapine 25 mg tablet 1 tab PO BEDTIME 06/02/20 06/22/22 05/19/22 History gabapentin 300 mg capsule 1 cap PO BID@0800,1600 08/24/21 06/22/22 05/19/22 History loperamide 2 mg capsule 2 mg PO BID@0800,1600 PRN Diarrhea 08/24/21 06/22/22 05/19/22 History mycophenolate mofetil 500 mg 1 tab PO BID@0800,1600 08/24/21 06/22/22 05/19/22 History tablet (CellCept) prednisone 10 mg tablet 25 mg PO DAILY 11/30/21 06/22/22 05/19/22 History albuterol sulfate 90 mcg/actuation 2 puff inhalation Q4H PRN Wheezing 01/23/22 06/22/22 05/19/22 History aerosol inhaler (Ventolin HFA) mirtazapine 30 mg tablet 1 tab PO BEDTIME 01/23/22 06/22/22 05/19/22 History triamcinolone acetonide 0.1 % 1 appl topical BID PRN Inflammation 01/23/22 06/22/22 05/19/22 History topical cream clotrimazole 1 % topical cream 1 appl topical BID PRN fungus, toes 06/06/22 06/22/22 Unknown History mupirocin 2 % topical ointment 1 applic topical BID 06/06/22 06/22/22 Unknown History acetaminophen 650 mg tablet 650 mg PO Q4H PRN Pain 06/22/22 06/22/22 Unknown History ondansetron HCl 4 mg tablet 4 mg PO Q8H PRN Nausea 06/22/22 06/22/22 Unknown History Exam Exam Date and Time: June 23, 2022 125 Height,Weight and Vital Signs: Height 5 ft 7 in Weight 93 kg Last Vital Signs Temp 97.9 F 06/23/22 12:19 Pulse 94 06/23/22 12:19 Resp 18 06/23/22 12:19 BP 128/57 L 06/23/22 12:19 Pulse Ox 98 06/23/22 12:19 O2 Del Method 06/23/22 12:19 Pertinent Lab Results Pertinent Lab Results: Laboratory Tests 06/22/22 06/22/22 06/22/22 03:53 03:53 03:53 WBC RBC Hgb Hct MCV MCH MCHC RDW Plt Count MPV Immature Gran % (Auto) Neut % (Auto) Lymph % (Auto) [place] % (Auto) Eos % (Auto) Baso % (Auto) Lymph # (Auto) [place] # (Auto) Eos # (Auto) Baso # (Auto) Abs Immat Gran (auto) Absolute Neuts (auto) Absolute Nucleated RBC Nucleated RBC % (auto) Smear Path Review PT 25.5 H INR 2.2 H Sodium 136 Potassium 3.7 Chloride 102 Carbon Dioxide 18 L Anion Gap 20 BUN 67 H Creatinine 2.19 H Estim Creat Clear Calc 30.8 Estimated GFR 30 POC Glucose Random Glucose 76 Calcium 8.7 Magnesium 1.5 L Total Bilirubin 0.4 AST 25 ALT 17 Alkaline Phosphatase 48 Troponin I High Sens 12.7 Total Protein 4.8 L Albumin 2.9 L Urine Color Urine Appearance Urine pH Ur Specific [place] Urine Protein Urine Glucose (UA) Urine Ketones Urine Blood Urine Nitrite Ur Leukocyte Esterase Stool Occult Blood Influenza Type A (PCR) Influenza Type B (PCR) RSV RNA Qual (PCR) SARS-CoV-2 RNA (RT-PCR) Blood Type Antibody Screen Crossmatch 06/22/22 06/22/22 06/22/22 03:53 03:53 03:54 WBC 10.1 RBC 3.01 L D Hgb 8.3 L D Hct 26.5 L D MCV 88.0 MCH 27.6 MCHC 31.3 RDW 18.6 H Plt Count 394 D MPV 9.6 Immature Gran % (Auto) 0.9 H Neut % (Auto) 80.4 H Lymph % (Auto) 9.7 L [place] % (Auto) 8.5 Eos % (Auto) 0.4 Baso % (Auto) 0.1 Lymph # (Auto) 1.0 L [place] # (Auto) 0.9 Eos # (Auto) 0.0 Baso # (Auto) 0.0 Abs Immat Gran (auto) 0.09 H Absolute Neuts (auto) 8.1 Absolute Nucleated RBC 0.100 H Nucleated RBC % (auto) 1.0 H Smear Path Review PT INR Sodium Potassium Chloride Carbon Dioxide Anion Gap BUN Creatinine Estim Creat Clear Calc Estimated GFR POC Glucose Random Glucose Calcium Magnesium Total Bilirubin AST ALT Alkaline Phosphatase Troponin I High Sens Total Protein Albumin Urine Color Urine Appearance Urine pH Ur Specific [place] Urine Protein Urine Glucose (UA) Urine Ketones Urine Blood Urine Nitrite Ur Leukocyte Esterase Stool Occult Blood Influenza Type A (PCR) NEGATIVE Influenza Type B (PCR) NEGATIVE RSV RNA Qual (PCR) NEGATIVE SARS-CoV-2 RNA (RT-PCR) NEGATIVE Blood Type A Positive Antibody Screen NEGATIVE Crossmatch See Detail 06/22/22 06/22/22 06/22/22 04:54 05:31 20:34 WBC RBC Hgb Hct MCV MCH MCHC RDW Plt Count MPV Immature Gran % (Auto) Neut % (Auto) Lymph % (Auto) [place] % (Auto) Eos % (Auto) Baso % (Auto) Lymph # (Auto) [place] # (Auto) Eos # (Auto) Baso # (Auto) Abs Immat Gran (auto) Absolute Neuts (auto) Absolute Nucleated RBC Nucleated RBC % (auto) Smear Path Review PT INR Sodium Potassium Chloride Carbon Dioxide Anion Gap BUN Creatinine Estim Creat Clear Calc Estimated GFR POC Glucose 71 Random Glucose Calcium Magnesium Total Bilirubin AST ALT Alkaline Phosphatase Troponin I High Sens Total Protein Albumin Urine Color Yellow Urine Appearance Clear Urine pH 5.0 Ur Specific [place] 1.020 Urine Protein Trace Urine Glucose (UA) Negative Urine Ketones Trace Urine Blood Negative Urine Nitrite Negative Ur Leukocyte Esterase Negative Stool Occult Blood POSITIVE Influenza Type A (PCR) Influenza Type B (PCR) RSV RNA Qual (PCR) SARS-CoV-2 RNA (RT-PCR) Blood Type Antibody Screen Crossmatch 06/23/22 06/23/22 06/23/22 07:17 07:17 07:47 WBC 6.3 RBC 3.42 L Hgb 9.9 L Hct 30.5 L MCV 89.2 MCH 28.9 MCHC 32.5 RDW 17.3 H Plt Count 251 D MPV 9.8 Immature Gran % (Auto) Neut % (Auto) Lymph % (Auto) [place] % (Auto) Eos % (Auto) Baso % (Auto) Lymph # (Auto) [place] # (Auto) Eos # (Auto) Baso # (Auto) Abs Immat Gran (auto) Absolute Neuts (auto) Absolute Nucleated RBC 0.080 H Nucleated RBC % (auto) 1.3 H Smear Path Review SEE NOTE PT INR Sodium 141 Potassium 3.8 Chloride 115 H Carbon Dioxide 16 L Anion Gap 14 BUN 33 H Creatinine 0.91 Estim Creat Clear Calc 77.4 Estimated GFR > 60 POC Glucose 80 Random Glucose 76 D Calcium 8.3 L Magnesium Total Bilirubin AST ALT Alkaline Phosphatase Troponin I High Sens Total Protein Albumin Urine Color Urine Appearance Urine pH Ur Specific [place] Urine Protein Urine Glucose (UA) Urine Ketones Urine Blood Urine Nitrite Ur Leukocyte Esterase Stool Occult Blood Influenza Type A (PCR) Influenza Type B (PCR) RSV RNA Qual (PCR) SARS-CoV-2 RNA (RT-PCR) Blood Type Antibody Screen Crossmatch 06/23/22 11:21 WBC RBC Hgb Hct MCV MCH MCHC RDW Plt Count MPV Immature Gran % (Auto) Neut % (Auto) Lymph % (Auto) [place] % (Auto) Eos % (Auto) Baso % (Auto) Lymph # (Auto) [place] # (Auto) Eos # (Auto) Baso # (Auto) Abs Immat Gran (auto) Absolute Neuts (auto) Absolute Nucleated RBC Nucleated RBC % (auto) Smear Path Review PT INR Sodium Potassium Chloride Carbon Dioxide Anion Gap BUN Creatinine Estim Creat Clear Calc Estimated GFR POC Glucose 94 Random Glucose Calcium Magnesium Total Bilirubin AST ALT Alkaline Phosphatase Troponin I High Sens Total Protein Albumin Urine Color Urine Appearance Urine pH Ur Specific [place] Urine Protein Urine Glucose (UA) Urine Ketones Urine Blood Urine Nitrite Ur Leukocyte Esterase Stool Occult Blood Influenza Type A (PCR) Influenza Type B (PCR) RSV RNA Qual (PCR) SARS-CoV-2 RNA (RT-PCR) Blood Type Antibody Screen Crossmatch Airway Mallampati Class: III TM Dist: >3cm Neck ROM: Full Loose/Missing/Broken Teeth: No (Patient denies broken or loose teeth) Heart: RRR Lungs: CTAB Assessment and Plan Assessment Anesthesia Assessment: Anesthesia Plan Discussed and Chart Reviewed Final Anesthetic Review Family History of Problems with Anesthesia: No History of Problems with Anesthesia: No NPO: Yes ASA Class: III and Emergency Final Preanesthetic Review: No Changes in Pt Med Stat, Meds/Allgs Chart Reviewed, Consent Obtained/Reviewed, Anes Risks/Benef Reviewed and DNR Form (If Appl.) (DNR status discussed with Sheryl Donato, Patient's HCP. Wish is to maintain and not reverse DNR status tami-op) Patient Risk: Intermediate Procedure Risk: Low Assessment/Block/Sedation in SS: Assess/Block/Sedation-SS Anesthetic Plan Anesthetic Plan: GA and MAC: Disposition: Standard PACU and Inp. Admit - Standard Bed
--- NOTE | 2022-06-23 13:38 | PC.NURSE ---
, Sheryl Donato, is HCP and consents received via telephone.
--- NOTE | 2022-06-23 13:40 | PC.NURSE ---
was poor historian regarding patient surgical history. Able to verify that patient has had a colonoscopy
[2022-06-23] MEDS: Lactated Ringers 1,000 ML 50 ML IVCONT (13:42)
--- NOTE | 2022-06-23 14:09 | P.BOP_ITS ---
Brief Operative Note Date of Service: 06/23/22 Pre-op diagnosis: gi bleed Post-op diagnosis: same Procedure: upper endoscopy Surgeon: Torres Salamanca Anesthesia: MAC Was an Shock Absorption Floor Layer used for this Procedure?: No Estimated blood loss (mL): 2 Pathology: other Condition: stable Disposition: PACU
--- NOTE | 2022-06-23 14:09 | HO.PM.IMPN ---
Subjective Subjective Date of Service: 06/23/22 Interval History: Seen in follow up for acute blood loss anemia with upper GI bleed Interval history: Pt denies abd pain, vom. +nausea. No melena or hematochezia. EGD later today. Reports left hand pain/swelling ongoing for months but worsening. Denies injury. Review of Systems General: No fevers, malaise, unintentional weight loss Cardiovascular: No chest pain, palpitations, or leg edema Respiratory: No shortness of breath, wheezing, cough GI: +nausea. No abdominal pain, vomiting, diarrhea, constipation, melena, hematochezia MSK: No myalgia, back pain. +left hand pain Neuro: No headaches, weakness, paresthesias Skin: No rashes or lesions Physical Exam Vital Signs: Vital Signs: Last Vital Signs Temp 97.9 F 06/23/22 12:19 Pulse 94 06/23/22 12:19 Resp 18 06/23/22 12:19 BP 128/57 L 06/23/22 12:19 Pulse Ox 98 06/23/22 12:19 O2 Del Method 06/23/22 12:19 BMI result Body Mass Index 32.1 Constitutional - Awake and Alert, No apparent distress Eyes - PERRLA, EOMI Cardiovascular - S1S2, RRR, No edema Respiratory - Normal lung expansion, Normal respiratory effort, No respiratory distress, CTA bilaterally Gastrointestinal - NT / ND; +BS; No rebound or guarding Extremities - no calf tenderness bilaterally, no calf swelling/edema. +swelling dorsal left wrist with ttp, no erythema/warmth, decreased active ROM Skin - Warm/Dry Neurological - Alert & oriented x3. 5/5 condenser tester strength b/l Psychological - Appropriate affect Objective Data Active Medications Acetaminophen (Acetaminophen 325 Mg Tablet) 650 mg PO Q6H PRN PRN Reason: Pain, Mild (Pain Scale 1-3) Last Admin: 06/23/22 10:49 Dose: 650 mg Documented By: NOLAN Atorvastatin Calcium (Atorvastatin Calcium 80 Mg Tablet) 80 mg PO DAILY [facility] Last Admin: 06/23/22 09:06 Dose: 80 mg Documented By: NOLAN Azathioprine (Azathioprine 50 Mg Tablet) 50 mg PO TID [facility] Last Admin: 06/23/22 09:06 Dose: 50 mg Documented By: HO.N-SOFFA Clotrimazole (Clotrimazole 1 % Cream 15 Gm Tube) 1 appl TOPICAL BID PRN; Protocol PRN Reason: fungus, toes Dextrose (Dextrose 50 % 25 Gm/50 Ml Syringe) 25 gm IVPUSH Q15M PRN; Protocol PRN Reason: per Hypoglycemia Standing Ord. Glucose (Glucose Gel 15 Gm Gel..Gram.) 15 gm PO Q15M PRN; Protocol PRN Reason: per Hypoglycemia Standing Ord. Lactated Ringer's (Lr) 1,000 mls @ 50 mls/hr IVCONT .Q20H [facility] Last Admin: 06/23/22 13:42 Dose: 50 mls/hr Documented By: SANDRA Insulin Human Lispro (Insulin Lispro 100 Unit/Ml 3 Ml Vial) 0 unit SUBCUT QIDACHS [facility]; Protocol Last Admin: 06/23/22 11:51 Dose: Not Given Documented By: NOLAN Non-Admin Reason: See Note Mirtazapine (Mirtazapine 30 Mg Tablet) 30 mg PO BEDTIME [facility] Last Admin: 06/22/22 20:23 Dose: 30 mg Documented By: BRIGIDA Mycophenolate Mofetil (Mycophenolate Mofetil 250 Mg Capsule) 500 mg PO BID@0800,1600 [facility] Last Admin: 06/23/22 09:05 Dose: 500 mg Documented By: NOLAN Ondansetron HCl (Ondansetron Hcl 4 Mg/2 Ml Vial) 4 mg IVPUSH Q8H PRN PRN Reason: Nausea and Vomiting Last Admin: 06/23/22 09:06 Dose: 4 mg Documented By: NOLAN Ondansetron HCl (Ondansetron Hcl 4 Mg/2 Ml Vial) 4 mg IVPUSH ONCE PRN PRN Reason: Nausea and Vomiting Oxycodone HCl (Oxycodone Hcl Immed Release 5 Mg Tablet) 5 mg PO Q4H PRN PRN Reason: Pain, Moderate (Pain Scale 4-6 Last Admin: 06/23/22 10:49 Dose: 5 mg Documented By: NOLAN Pantoprazole Sodium (Pantoprazole Sodium 40 Mg/10 Ml Vial) 40 mg IVPUSH BID@0630,1630 [facility] Last Admin: 06/23/22 05:33 Dose: 40 mg Documented By: BRIGIDA Pyridostigmine Phelps (Pyridostigmine Phelps 60 Mg Tablet) 60 mg PO QID [facility] Last Admin: 06/23/22 12:15 Dose: Not Given Documented By: NOLAN Non-Admin Reason: Off Unit: Surgery Quetiapine Fumarate (Quetiapine Fumarate 25 Mg Tablet) 25 mg PO BEDTIME [facility] Last Admin: 06/22/22 20:23 Dose: 25 mg Documented By: BRIGIDA Sodium Chloride (0.9 % Sodium Chloride Flush 3 Ml Syringe) 3 ml IVFLUSH QSHIFT [facility] Last Admin: 06/23/22 07:07 Dose: Not Given Documented By: NOLAN Non-Admin Reason: See Note Labs CBC & Chem 7: 06/23/22 07:17 06/23/22 07:17 Labs: Laboratory Results - last 24 hr 06/22/22 06/23/22 06/23/22 20:34 07:17 07:17 MCV 89.2 MCH 28.9 MCHC 32.5 RDW 17.3 H Plt Count 251 D MPV 9.8 Absolute Nucleated RBC 0.080 H Nucleated RBC % (auto) 1.3 H Smear Path Review SEE NOTE Anion Gap 14 Estim Creat Clear Calc 77.4 Estimated GFR > 60 POC Glucose 71 Random Glucose 76 D Calcium 8.3 L 06/23/22 06/23/22 07:47 11:21 MCV MCH MCHC RDW Plt Count MPV Absolute Nucleated RBC Nucleated RBC % (auto) Smear Path Review Anion Gap Estim Creat Clear Calc Estimated GFR POC Glucose 80 94 Random Glucose Calcium Assessment and Plan (1) GI bleed: Status: Acute (2) Acute on chronic renal failure: Status: Acute Plan 71-year-old male with a pertinent history of traumatic brain injury s/p cardiac arrest with ROSC 8 years ago, type 2 diabetes mellitus, CKD stage 3, myasthenia gravis, essential hypertension, mixed hyperlipidemia, and chronic bilateral lower extremity edema likely secondary to venous stasis, with recent admission 04/21 and 05/19 for bilateral DVT started on eliquis admitted? for acute blood loss anemia secondary to upper GI bleed. #Acute blood loss anemia secondary to upper GI bleed -baseline chronic normocytic anemia secondary to CKD stage III -patient with stool occult blood positive with multiple episodes melena and single episode coffee-ground emesis -transfused 2 units packed red blood cells in ED. H/H now stable -Given 2500 units Kcentra in ED -Hold eliquis -IV PPI BID -Appreciate GI input- EGD today -Monitor on telemetry -Close monitoring VS -Follow CBC #KIMBERLEY with baseline CKD stage 3 due to hypovolemia- resolved with IVF bolus -Creat now 0.91 -Follow BMP #Hypotension- secondary to acute blood loss anemia -Resolved with IVF bolus -BP 125/58 on exam -Close montioring VS # Acute DVT bilateral peroneal veins- dx 04/21 -hold eliquis due to GI bleed #Chronic lower extremity edema- likely related to chronic venous stasis -Continue lasix once BP stable #Stage I/II decubitus ulcer bilateral buttock-present on arrival -Barrier cream, reposition q2h #.? 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 Myasthenia gravis -continue prednisone, mycophenolate and azathioprine -PT consult for weakness #.? 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 Essential hypertension -Hold home meds for now, bp soft #history cardiac arrest 8 years ago -Continue rosuvastatin -patient exhibits repetitions secondary to anoxic brain injury-baseline DNR/DNI DVT prophylaxis-compression therapy Patient requires ongoing inpatient stay for management acute upper GI bleed with acute blood loss anemia requiring transfusion, expert consultation with EGD, and close monitoring for hemodynamic stability. Time Spent With Patient Time: Total time managing care of this patient today ____ minutes. Quality Stroke Does the patient have a stroke diagnosis?: No VTE Prior VTE?: Yes VTE Risk Level:: Medical - moderate - high VTE Device Contraindication: N/A - Device Ordered VTE Drug Contraindication: Treatment Not Tolerated
--- NOTE | 2022-06-23 14:11 | PM.EVENT ---
Event Note Date of Service: 06/23/22 Event Note: EGD note dictated multiple large nonbleeding gastric and duodenal ulcers erosive esophagitis iover distal third of esophagus. antral biopsies obtained rec advance diet bid ppi f/u bx results no nsaids/anticoagulants/antiplatelets repeat EGD in 12 weeks to assess healing. Time Spent With Patient Time: Total time managing care of this patient today ____ minutes.
[2022-06-23 15:50] LABS: Glucose, Whole Blood 103 mg/dL (60-115)
--- NOTE | 2022-06-23 17:59 | PC.NURSE ---
Per OR ok to give meds this AM. report given to STRUCTURAL ANALYST. HUB CUTTER assessed L wrist d/t pt c/o pain and swelling.
[2022-06-23] MEDS: QUEtiapine Fumarate 25 MG TABLET PO (20:03)
[2022-06-23] MEDS: Mirtazapine 30 MG TABLET PO (20:03)
[2022-06-23 20:35] LABS: Glucose, Whole Blood 111 mg/dL (60-115)
[2022-06-24] VITALS (18 sets, daily range): BP systolic 122–161; BP diastolic 52–82; PULSE 68–91; RESP 14–20; TEMP 35.9–37.3; O2SAT 96–99
--- NOTE | 2022-06-24 00:01 | OP_ITS ---
SURGEON: Torres Salamanca MD INDICATIONS: Upper GI bleeding. PREOPERATIVE DIAGNOSIS: POSTOPERATIVE DIAGNOSIS: PROCEDURE PERFORMED: Upper endoscopy with biopsy. ESTIMATED BLOOD LOSS: COMPLICATIONS: ANESTHESIA: Monitored anesthesia care. ASSISTANTS: SPECIMENS: DESCRIPTION OF PROCEDURE: Date: 06/23/22. History and physical was performed. The risks and benefits of the procedure were explained to the patient's healthcare proxy, Sheryl Donato. An informed consent was obtained. The patient was placed in the left lateral decubitus position. The Olympus video gastroscope was introduced into the esophagus, stomach, and duodenum. Examination was performed. The scope was removed. He tolerated the procedure well and was taken to recovery in stable condition. FINDINGS: Esophagus: There was erosive esophagitis involving the distal 1/3rd of the esophagus. No active bleeding was identified. Stomach: Stomach showed multiple gastric ulcers in the body and antrum. The largest of these measured approximately 4 x 6 cm on the anterior wall in the prepyloric region. Biopsies were obtained from the mucosa adjacent to this. Duodenum: There were linear ulcerations involving the junction of the bulb and second portion. The remainder of the second portion appeared normal. No active bleeding site was seen and none of the ulcers required endoscopic therapy. Careful irrigation of multiple ulcer sites was performed. IMPRESSION: 1. Erosive esophagitis. 2. Multiple gastric ulcers. 3. Duodenal ulcers. RECOMMENDATION: 1. No anticoagulation, consider filter placement. 2. High-dose proton pump inhibitor. 3. Avoid NSAIDs and anti-platelet medications. MD DARINEL Harvey/REAGAN / [id number] MTDD
[2022-06-24] MEDS: Pantoprazole Sodium 40 MG/10 ML VIAL IVPUSH ×2 (05:03→19:59)
--- NOTE | 2022-06-24 05:36 | CONS_ITS ---
DATE OF SERVICE: 06/23/2022 REFERRING PHYSICIAN: ANAND Adames REASON FOR CONSULTATION: Black stools and history of coffee-grounds emesis. HISTORY OF PRESENT ILLNESS: The patient is a 72-year-old man who was admitted to the hospital after passing black stool at the nursing facility where he was residing for short-term rehab. He was evaluated in the Emergency Department where he had 1 reported episode of coffee-grounds emesis prior to admission. Laboratory studies showed hematocrit of 26.5 and he was transfused 2 units of packed red blood cells. He had been on Eliquis for recent DVT diagnosed in April and was given Kcentra in the Emergency Department. He denies any history of peptic ulcer disease. He has a history of traumatic brain injury and is a poor historian. PAST MEDICAL HISTORY: 1. Hypertension. 2. Hyperlipidemia. 3. Myasthenia gravis. 4. Chronic kidney disease. 5. Diabetes mellitus type 2. 6. Venous stasis with lower extremity edema. 7. DVT as above. 8. 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 CURRENT MEDICATIONS: His current medication list is reviewed in the chart. ALLERGIES: THERE ARE NONE REPORTED. FAMILY HISTORY: This was reviewed in the electronic medical record. SOCIAL HISTORY: There is no current substance abuse reported. REVIEW OF SYSTEMS: This is not reliably obtainable. PHYSICAL EXAMINATION: GENERAL: Shows a pleasant male. VITAL SIGNS: Reviewed in electronic medical record and are stable. SKIN: Anicteric. HEENT: Shows no scleral icterus. NECK: Without lymphadenopathy or thyromegaly. LUNGS: Clear. HEART: Shows irregular rate and rhythm, S1, S2. No murmur. ABDOMEN: Soft, no focal masses or tenderness. Bowel sounds are present. No organomegaly is noted. EXTREMITIES: Show edema. LABORATORY DATA AND IMAGING STUDIES: Reviewed. IMPRESSION: Black stools with significant anemia. This appears consistent with upper GI tract blood loss, likely exacerbated by his anticoagulant use. I have discussed risks and benefits of upper endoscopy with the patient and his . They understand these and agreed to proceed. This will be arranged for later tonight. We did review his prior evaluation with colonoscopy, which most recently was done in August of 2015, which showed diverticulosis and small internal hemorrhoids. Followup was recommended in 10 years. MD DARINEL Harvey/REAGAN / [phone]
[2022-06-24 07:14] LABS: Glucose, Whole Blood 99 mg/dL (60-115)
[2022-06-24] MEDS: mycophenolate mofetiL 250 MG CAPSULE 500 MG PO ×2 (09:03→20:01)
[2022-06-24] MEDS: pyRIDostigmine bromide 60 MG TABLET PO ×2 (09:03→20:01)
[2022-06-24] MEDS: Atorvastatin Calcium 80 MG TABLET PO (09:03)
[2022-06-24] MEDS: azaTHIOprine 50 MG TABLET PO ×2 (09:03→20:00)
[2022-06-24] MEDS: Acetaminophen 325 MG TABLET 650 MG PO (09:12)
[2022-06-24] MEDS: oxyCODONE HCl Immed Release 5 MG TABLET PO (09:13)
--- NOTE | 2022-06-24 09:27 | MHC.CLN ---
F/U PT BACK TO NPO PT DID RECEIVE CARDIAC DIET 06/23 WHEN DIET TO ADVANCE; RECOMMEND 2200DM 2GM NA DIET IN ADDITION; RECOMMEND ADDING GLUCERNA BID TO INCREASE KCALS AND PROMOTE WOUND HEALING SUPP TO PROVIDE 474KCALS, 20G PROTEIN MONITOR PO INTAKE CLOSELY
[2022-06-24] MEDS: Phytonadione (Vit K1) 5 MG in 0.9 % Sodium Chloride 50 ML 50.5 MG IV (11:13)
[2022-06-24 11:22] LABS: Glucose, Whole Blood 127 mg/dL (60-115)
[2022-06-24 12:30] LABS: MANUAL DIFF FLAG NO
[2022-06-24 12:33] LABS: Basophils Percent Auto 0.4 % (0-2); Eosinophils Absolute Auto 0.1 X10*3/uL (0.0-0.4); Eosinophils Percent Auto 2.2 % (0-4); Hematocrit 26.7 % (42.0-52.0); Hemoglobin 8.4 g/dl (14.0-18.0); Imm Gran Abs Auto 0.02 X10*3/uL (0.00-0.03); Imm Gran Pct Auto 0.4 % (0.0-0.4); Lymphocytes Absolute Auto 0.8 X10*3/uL (1.2-4.9); Lymphocytes Percent Auto 16.5 % (20-40); Mean Corpuscular HGB Conc 31.5 g/dl (31.0-36.0); Mean Corpuscular Hemoglobin 28.5 pg (27.0-33.0); Mean Corpuscular Volume 90.5 fL (80.0-98.0); Mean Platelet Volume 9.4 fL (9.4-12.4); Monocytes Absolute Auto 0.4 X10*3/uL (0.1-1.2); Monocytes Percent Auto 8.9 % (2-11); Neutrophils Absolute Auto 3.3 x10*3/uL (2.0-8.3); Neutrophils Percent Auto 71.6 % (45-73); Platelet Count 233 X10*3/uL (160-400); Red Blood Count 2.95 X10*6/uL (4.60-5.80); Red Cell Distribution Width 17.4 % (11.0-16.0); White Blood Count 4.6 X10*3/uL (4.8-10.8)
[2022-06-24 12:34] LABS: NRBC Pct Auto 1.1 /100WBC (0.0-0.2)
--- NOTE | 2022-06-24 12:41 | MHC.CM.PN ---
per rounds pt not ready for dc plan re,ains home with [facility] need f2f
[2022-06-24 12:57] LABS: Anion Gap 12 (12-20); Blood Urea Nitrogen 18 mg/dL (9-16); Calcium 8.2 mg/dL (8.4-10.2); Carbon Dioxide 22 mmol/L (22-29); Chloride 112 mmol/L (96-108); Creatinine Clr Calc Pharmacy 86.9; Estimated Glomerular Filt Rate > 60; Glucose Random 111 mg/dL (60-115); Potassium 3.2 mmol/L (3.3-5.1); Sodium 143 mmol/L (135-145)
[2022-06-24] MEDS: 0.9 % Sodium Chloride 1,000 ML 50 ML IVCONT ×2 (13:04→19:58)
--- NOTE | 2022-06-24 13:30 | P.CDIC_ITS ---
CDI Concurrent Query Documentation Clarification: PHYSICIAN'S DOCUMENTATION REQUEST Date of Query: 06/24/22 5722 Patient Name: Popeye Donato Admit Date: 06/22/22 Dear Doctor, A review of the medical record indicates additional documentation may be indicated. Please review below and update the documentation accordingly. Clinical Indicators: Risk Factors/Clinical Indicators/Treatments per MD progress note 06/23/22: Stage I/II decubitus ulcer bilateral buttock-present on arrival -Barrier cream, reposition q2h Based on the above, could you please provide, in the Progress Notes, further information regarding the ulcer/wound: * If a pressure ulcer, please also include the stage* of the ulcer: * Stage 1 decubitus ulcer bilateral buttock - Skin intact, non-blanchable redness OR * Stage 2 decubitus ulcer bilateral buttock - Partial thickness loss of dermis, includes intact or open blister * Other * Unable to determine *Source: National Pressure Ulcer Advisory Panel (NPUAP) Use of terms such as suspected, likely, concern for, or probable (associated with a specific diagnosis that is being evaluated, monitored, or treated as if it exists) are acceptable and can be coded in the inpatient setting, when documented at the time of discharge. Thank you, Jing Estrada RN Extension: [phone] Please use your independent medical judgment in providing your response. THIS QUERY IS PART OF THE PERMANENT MEDICAL RECORD Provider Response: Other Other Diagnosis: Stage II decubitus ulcer bilateral buttock
--- NOTE | 2022-06-24 15:20 | HO.POSTANES ---
Post Anesthesia Evaluation Post Anesthesia Evaluation Vital Signs: Vital Signs Temp Pulse Resp BP Pulse Ox O2 Del Method 06/24/22 12:00 97.4 F 82 19 138/80 06/24/22 11:16 97.4 F 75 17 140/82 H 06/24/22 11:15 97.4 F 76 17 140/65 H 06/24/22 11:06 97.5 F 75 20 130/60 98 Room Air 06/24/22 10:59 97.5 F 85 20 130/60 06/24/22 07:20 96.7 F L 91 20 122/57 L 96 Room Air 06/24/22 04:00 96.6 F L 68 20 135/60 97 Room Air Anesthesia: Monitored Mental Status: Awake Pain Control: Satisfactory Nausea/Vomiting: None Hydration: Adequate Anesthesia-Related Issues: No Anes. Related Issues
[2022-06-24] MEDS: iohexoL 300 MG/ML 100 ML INFUS..BTL 30 ML IV (15:46)
[2022-06-24] MEDS: Lidocaine HCl 1 % MPF 5 ML VIAL 10 ML SUBCUT (15:47)
--- NOTE | 2022-06-24 16:01 | HO.PM.IMPN ---
Subjective Subjective Date of Service: 06/24/22 Interval History: Seen in follow up for acute blood loss anemia with upper GI bleed Interval history: Pt denies abd pain, vom. +nausea. Nursing reporting melena overnight. EGD yesterday showed multiple gastric and duodenal ulcers without active bleeding. Ongoing pain/swelling left wrist/hand Review of Systems General: No fevers, malaise, unintentional weight loss Cardiovascular: No chest pain, palpitations, or leg edema Respiratory: No shortness of breath, wheezing, cough GI: +nausea. No abdominal pain, vomiting, diarrhea, constipation, melena, hematochezia MSK: No myalgia, back pain. +left hand pain Neuro: No headaches, weakness, paresthesias Skin: No rashes or lesions Physical Exam Vital Signs: Vital Signs: Last Vital Signs Temp 97.4 F 06/24/22 12:00 Pulse 82 06/24/22 12:00 Resp 19 06/24/22 12:00 BP 138/80 06/24/22 12:00 Pulse Ox 98 06/24/22 11:06 O2 Del Method 06/24/22 11:06 O2 Flow Rate 0 06/23/22 14:27 BMI result Body Mass Index 32.1 Constitutional - Awake and Alert, No apparent distress Eyes - PERRLA, EOMI Cardiovascular - S1S2, RRR, No edema Respiratory - Normal lung expansion, Normal respiratory effort, No respiratory distress, CTA bilaterally Gastrointestinal - NT / ND; +BS; No rebound or guarding Extremities - no calf tenderness bilaterally, no calf swelling/edema. +swelling dorsal left wrist with ttp, no erythema/warmth, decreased active ROM Skin - Warm/Dry Neurological - Alert & oriented x3. 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 Psychological - Appropriate affect Objective Data Active Medications Acetaminophen (Acetaminophen 325 Mg Tablet) 650 mg PO Q6H PRN PRN Reason: Pain, Mild (Pain Scale 1-3) Last Admin: 06/24/22 09:12 Dose: 650 mg Documented By: NOLAN Atorvastatin Calcium (Atorvastatin Calcium 80 Mg Tablet) 80 mg PO DAILY [facility] Last Admin: 06/24/22 09:03 Dose: 80 mg Documented By: NOLAN Azathioprine (Azathioprine 50 Mg Tablet) 50 mg PO TID [facility] Last Admin: 06/24/22 09:03 Dose: 50 mg Documented By: DENISEFA Clotrimazole (Clotrimazole 1 % Cream 15 Gm Tube) 1 appl TOPICAL BID PRN; Protocol PRN Reason: fungus, toes Dextrose (Dextrose 50 % 25 Gm/50 Ml Syringe) 25 gm IVPUSH Q15M PRN; Protocol PRN Reason: per Hypoglycemia Standing Ord. Glucose (Glucose Gel 15 Gm Gel..Gram.) 15 gm PO Q15M PRN; Protocol PRN Reason: per Hypoglycemia Standing Ord. Sodium Chloride (Ns) 1,000 mls @ 50 mls/hr IVCONT .Q20H [facility] Last Admin: 06/24/22 13:04 Dose: 50 mls/hr Documented By: NOLAN Insulin Human Lispro (Insulin Lispro 100 Unit/Ml 3 Ml Vial) 0 unit SUBCUT QIDACHS [facility]; Protocol Last Admin: 06/24/22 11:20 Dose: Not Given Documented By: NOLAN Non-Admin Reason: See Note Mirtazapine (Mirtazapine 30 Mg Tablet) 30 mg PO BEDTIME [facility] Last Admin: 06/23/22 20:03 Dose: 30 mg Documented By: BRIGIDA Mycophenolate Mofetil (Mycophenolate Mofetil 250 Mg Capsule) 500 mg PO BID@0800,1600 [facility] Last Admin: 06/24/22 09:03 Dose: 500 mg Documented By: NOLAN Ondansetron HCl (Ondansetron Hcl 4 Mg/2 Ml Vial) 4 mg IVPUSH Q8H PRN PRN Reason: Nausea and Vomiting Last Admin: 06/23/22 09:06 Dose: 4 mg Documented By: NOLAN Ondansetron HCl (Ondansetron Hcl 4 Mg/2 Ml Vial) 4 mg IVPUSH ONCE PRN PRN Reason: Nausea and Vomiting Oxycodone HCl (Oxycodone Hcl Immed Release 5 Mg Tablet) 5 mg PO Q4H PRN PRN Reason: Pain, Moderate (Pain Scale 4-6 Last Admin: 06/24/22 09:13 Dose: 5 mg Documented By: NOLAN Oxycodone HCl (Oxycodone Hcl Immed Release 5 Mg Tablet) 10 mg PO Q6H PRN PRN Reason: Pain, Severe (Pain Scale 7-10) Pantoprazole Sodium (Pantoprazole Sodium 40 Mg/10 Ml Vial) 40 mg IVPUSH BID@0635,5090 [facility] Last Admin: 06/24/22 05:03 Dose: 40 mg Documented By: BRIGIDA Pyridostigmine [place] (Pyridostigmine [place] 60 Mg Tablet) 60 mg PO QID [facility] Last Admin: 06/24/22 13:02 Dose: Not Given Documented By: NOLAN Non-Admin Reason: Off Unit: Surgery Quetiapine Fumarate (Quetiapine Fumarate 25 Mg Tablet) 25 mg PO BEDTIME [facility] Last Admin: 06/23/22 20:03 Dose: 25 mg Documented By: BRIGIDA Sodium Chloride (0.9 % Sodium Chloride Flush 3 Ml Syringe) 3 ml IVFLUSH QSHIFT [facility] Last Admin: 06/24/22 07:08 Dose: Not Given Documented By: NOLAN Non-Admin Reason: See Note Labs CBC & Chem 7: 06/24/22 12:25 06/24/22 12:25 Labs: Laboratory Results - last 24 hr 06/22/22 06/23/22 06/24/22 03:53 20:28 07:07 MCV MCH MCHC RDW Plt Count MPV Immature Gran % (Auto) Neut % (Auto) Lymph % (Auto) [place] % (Auto) Eos % (Auto) Baso % (Auto) Lymph # (Auto) [place] # (Auto) Eos # (Auto) Baso # (Auto) Abs Immat Gran (auto) Absolute Neuts (auto) Absolute Nucleated RBC Nucleated RBC % (auto) Anion Gap Estim Creat Clear Calc Estimated GFR POC Glucose 111 99 Random Glucose Calcium Blood Type A Positive Antibody Screen NEGATIVE Crossmatch See Detail 06/24/22 06/24/22 06/24/22 11:08 12:25 12:25 MCV 90.5 MCH 28.5 MCHC 31.5 RDW 17.4 H Plt Count 233 MPV 9.4 Immature Gran % (Auto) 0.4 Neut % (Auto) 71.6 Lymph % (Auto) 16.5 L [place] % (Auto) 8.9 Eos % (Auto) 2.2 Baso % (Auto) 0.4 Lymph # (Auto) 0.8 L [place] # (Auto) 0.4 Eos # (Auto) 0.1 Baso # (Auto) 0.0 Abs Immat Gran (auto) 0.02 Absolute Neuts (auto) 3.3 Absolute Nucleated RBC 0.050 H Nucleated RBC % (auto) 1.1 H Anion Gap 12 Estim Creat Clear Calc 86.9 Estimated GFR > 60 POC Glucose 127 H Random Glucose 111 D Calcium 8.2 L Blood Type Antibody Screen Crossmatch Assessment and Plan (1) GI bleed: Status: Acute (2) Acute on chronic renal failure: Status: Acute Plan 71-year-old male with a pertinent history of traumatic brain injury s/p cardiac arrest with ROSC 8 years ago, type 2 diabetes mellitus, CKD stage 3, myasthenia gravis, essential hypertension, mixed hyperlipidemia, and chronic bilateral lower extremity edema likely secondary to venous stasis, with recent admission 04/21 and 05/19 for bilateral DVT started on eliquis admitted? for acute blood loss anemia secondary to upper GI bleed. #Acute blood loss anemia secondary to upper GI bleed -baseline chronic normocytic anemia secondary to CKD stage III -patient with stool occult blood positive with multiple episodes melena and single episode coffee-ground emesis -transfused 2 units packed red blood cells in ED. -Given 2500 units Kcentra in ED -Hold eliquis -Appreciate GI input- EGD showing 6 gastric ulcers, erosive esophagitis distal esophagus, linear duodenal ulcer. No active bleeding. -Hold eliquis for 8-12 until reevaluated by GI with repeat EGD outpt -Nursing reporting 1 episode melena overnight. H/H 8.4/26.7% -Continue PPI -Monitor on telemetry -Close monitoring VS -Follow CBC #KIMBERLEY with baseline CKD stage 3 due to hypovolemia- resolved with IVF bolus -Creat now 0.91 -Follow BMP #Hypotension- secondary to acute blood loss anemia- resolved -Resolved with IVF bolus -Close montioring VS #Soft tissue swelling left wrist -Xray results pending- no osseous abnormality on my review -Has not had any IV insertions at site, and has been present for weeks, unlikely abscess without any notable fluctuance -Likely ganglion cyst- recommend outpt follow up # Acute DVT bilateral peroneal veins- dx 04/21 -Per GI, hold eliquis as above -Bilateral IVC filters today- INR 2.2, goal <2.0. Given 1 ffp and 5mg vit k #Chronic lower extremity edema- likely related to chronic venous stasis -Continue lasix once BP stable #Stage II decubitus ulcer bilateral buttock-present on arrival -Primarily stage I with areas of soft tissue breakdown -Barrier cream, reposition q2h #.? 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 Myasthenia gravis -continue prednisone, mycophenolate and azathioprine -PT consult for weakness #.? 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 Essential hypertension -Resume home meds am #history cardiac arrest 8 years ago -Continue rosuvastatin -patient exhibits repetitions secondary to anoxic brain injury-baseline DNR/DNI DVT prophylaxis-compression therapy Patient requires ongoing inpatient stay for management acute upper GI bleed with acute blood loss anemia requiring transfusion, expert consultation with EGD, and close monitoring for hemodynamic stability. Time Spent With Patient Time: Total time managing care of this patient today ____ minutes. Quality Stroke Does the patient have a stroke diagnosis?: No VTE Prior VTE?: Yes VTE Risk Level:: Medical - moderate - high VTE Device Contraindication: N/A - Device Ordered VTE Drug Contraindication: Treatment Not Tolerated
[2022-06-24] MEDS: ondansetron HCL 4 MG/2 ML VIAL IVPUSH (18:08)
[2022-06-24 18:43] LABS: Glucose, Whole Blood 94 mg/dL (60-115)
[2022-06-24] MEDS: 0.9 % Sodium Chloride Flush 3 ML SYRINGE IVFLUSH (19:57)
[2022-06-24] MEDS: Mirtazapine 30 MG TABLET PO (20:00)
[2022-06-24] MEDS: QUEtiapine Fumarate 25 MG TABLET PO (20:01)
[2022-06-24 21:03] LABS: Glucose, Whole Blood 95 mg/dL (60-115)
[2022-06-25] MEDS: oxyCODONE HCl Immed Release 5 MG TABLET 10 MG PO ×2 (00:12→09:17)
[2022-06-25 03:00] VITALS: BP 136/61; PULSE 81; RESP 16; TEMP 36.3; O2SAT 94
[2022-06-25] MEDS: oxyCODONE HCl Immed Release 5 MG TABLET PO (03:34)
[2022-06-25] MEDS: Pantoprazole Sodium 40 MG/10 ML VIAL IVPUSH ×2 (05:55→16:19)
[2022-06-25 07:02] LABS: Basophils Percent Auto 0.4 % (0-2); Eosinophils Absolute Auto 0.1 X10*3/uL (0.0-0.4); Hematocrit 28.1 % (42.0-52.0); Hemoglobin 8.9 g/dl (14.0-18.0); Imm Gran Abs Auto 0.04 X10*3/uL (0.00-0.03); Imm Gran Pct Auto 0.9 % (0.0-0.4); Lymphocytes Absolute Auto 0.8 X10*3/uL (1.2-4.9); Lymphocytes Percent Auto 17.8 % (20-40); MANUAL DIFF FLAG SCAN; Mean Corpuscular HGB Conc 31.7 g/dl (31.0-36.0); Mean Corpuscular Hemoglobin 28.7 pg (27.0-33.0); Mean Corpuscular Volume 90.6 fL (80.0-98.0); Mean Platelet Volume 10.5 fL (9.4-12.4); Monocytes Absolute Auto 0.4 X10*3/uL (0.1-1.2); Monocytes Percent Auto 8.3 % (2-11); NRBC Pct Auto 0.9 /100WBC (0.0-0.2); Neutrophils Absolute Auto 3.2 x10*3/uL (2.0-8.3); Neutrophils Percent Auto 70.6 % (45-73); PLT CLUMP 1; Red Cell Distribution Width 17.4 % (11.0-16.0); SCAN SMEAR FLAG 1
[2022-06-25 07:33] LABS: Platelet Count 199 X10*3/uL (160-400); White Blood Count 4.6 X10*3/uL (4.8-10.8)
[2022-06-25 07:34] LABS: SLIDE REVIEW VERIFIED
[2022-06-25 07:57] LABS: Anion Gap 14 (12-20); Blood Urea Nitrogen 13 mg/dL (9-16); Calcium 7.9 mg/dL (8.4-10.2); Carbon Dioxide 19 mmol/L (22-29); Chloride 115 mmol/L (96-108); Creatinine Clr Calc Pharmacy 85.9; Estimated Glomerular Filt Rate > 60; Glucose Random 88 mg/dL (60-115); Sodium 144 mmol/L (135-145)
[2022-06-25 07:58] VITALS: BP 156/68; PULSE 87; RESP 18; TEMP 36.4; O2SAT 97
[2022-06-25 08:08] LABS: Glucose, Whole Blood 86 mg/dL (60-115)
[2022-06-25] MEDS: amLODIPine Besylate 5 MG TABLET PO (09:18)
[2022-06-25] MEDS: pyRIDostigmine bromide 60 MG TABLET PO ×3 (09:18→16:31)
[2022-06-25] MEDS: Atorvastatin Calcium 80 MG TABLET PO (09:18)
[2022-06-25] MEDS: azaTHIOprine 50 MG TABLET PO ×2 (09:18→14:37)
[2022-06-25] MEDS: mycophenolate mofetiL 250 MG CAPSULE 500 MG PO ×2 (09:18→16:31)
[2022-06-25] MEDS: Furosemide 20 MG TABLET PO (09:18)
[2022-06-25 11:24] LABS: Glucose, Whole Blood 92 mg/dL (60-115)
--- NOTE | 2022-06-25 11:45 | MHC.CM.PN ---
ACUTE CARE TRANSFER TO [facility] / [facility]
--- NOTE | 2022-06-25 12:15 | MHC.CM.PN ---
PATIENT TO RETURN HOME TODAY WITH [facility] WANTS PATIENT TO RETURN HOME AND NOT DC BACK TO SNF. RN MADE AWARE AND CM WILL ARRANGE FOR TRANSPORT HOME ONCE DC SUMMARY IS IN
--- NOTE | 2022-06-25 12:28 | P.F2F_ITS ---
Service Date Service Date: 06/25/22 Encounter Date of encounter: 06/25/22 Reasons for Services Signs and symptoms assessed: upper GI bleed, physical deconditioning Reason for retirement: medication management and teach disease management Reason for physical therapy: home safety and mobility and therapeutic exercises Homebound: Leaving the home is medically contraindicated at this time without the asist of a device and/or another person due th the listed conditions above and below. Reason homebound: unsteady gait / fall risk Certification: Based on the above findings, I certify that this patient is confined to the home and needs intermittent retirement care, physical therapy and/or speech therapy, or continues to need occupational therapy. The patient is under my care, and I have initiated the establishment of the plan of care. The patient will be followed by a physician who will periodically review the plan of care. Time Spent With Patient Time: Total time managing care of this patient today ____ minutes.
--- NOTE | 2022-06-25 12:36 | P.DS_ITS ---
DS: Providers Provider Date of Service: 06/25/22 Date of admission: 06/22/22 09:24 Primary care physician: Justino Lara MD Consults: 06/22/22 09:29 Consult to Gastroenterology Routine Consulting Provider: Torres Salamanca Reason for consultation: Melena, on Eliquis 06/23/22 18:00 Consult to Wound Care Routine Consulting Provider: Emi Zamora Reason for consultation: Wound to sacrum/buttocks DS: Diagnosis Discharge Diagnosis (1) GI bleed: Status: Acute (2) Acute on chronic renal failure: Status: Acute (3) Decubital ulcer: Status: Acute (4) Weakness: Status: Acute DS: Summary Hospital Course Hospital Course: Admission note HPI 71-year-old male with a pertinent history of traumatic brain injury s/p cardiac arrest with ROSC 8 years ago, type 2 diabetes mellitus, CKD stage 3, myasthenia gravis, essential hypertension, mixed hyperlipidemia, and chronic bilateral lower extremity edema likely secondary to venous stasis, with recent admission 04/21 for bilateral DVT started on eliquis presented to the ED via EMS from [facility] where he has been residing for [facility] due to episodes of melena noted by staff. Upon arrival to facility, EMS noted BP 88/54, EKG sinus tach rate 113. Pt had 1 episode coffee gorunds emesis enroute to ED. on arrival, patient became hypotensive at 83/50, HR 108.? No leukocytosis.? H/H 8.3/26.5% (06/06/22 H/H 10.6/33.3%). Creat 2.19 (baseline 1.60), BUN 67, lytes normal except CO2 18, mag 1.5. UA unremarkable. Stool occult blood positive.? CT abdomen/pelvis without any acute abnormality but showing cholelithiasis, diverticulosis with chronic wall thickening of the sigmoid colon, a regular soft tissue nodule adjacent to sigmoid colon likely related to scarring as sequela of prior diverticulitis outpatient follow-up advised, hepatic steatosis, hiatal hernia, chronic interstitial lung disease.? In the ED, patient treated with 2 units packed red blood cells for acute blood loss anemia, KCentra, 1 g magnesium sulfate IV, 2 L bolus IV NS and 80 mg pantoprazole IV.? Patient to be admitted for acute blood loss anemia secondary to upper GI bleed. Hospital course The patient was admitted for evaluation of acute blood loss anemia secondary to upper GI bleed as he was noted to have multiple episodes of melena and single episode of coffee-ground emesis. Required 2 units transfusion in the emergency along with Kcentra. Quiz was held as the patient was evaluated by aws software development engineer who did an EGD showing evidence of 6 gastric ulcers, erosive esophagitis and duodenal ulcer with no active bleeding. GI recommended to hold Eliquis and had EGDs repeated in 2 weeks. Hemoglobin remained stable above 8 wi th no further bleeding reported. Noted to have mild acute kidney injury on top of CKD stage 3 with mild hypovolemia responded well to IV fluid with improvement of kidney function to baseline 9. Complained of left wrist swelling. X-ray showed no evidence of fracture or bony injury. Believed to be secondary to arthritis. To control with pain bed and physical therapy. Noted to have stage II decubitus ulcers needs local measures and offloading pressure. To be followed as outpatient with visiting nurses. Avoid aspirin, NSAIDs Start pantoprazole 40 mg twice daily Hold Eliquis and your repeat EGD To follow-up with Gastroenterology as outpatient for repeat of endoscopy in 2 weeks Time Spent with Patient Time attestation: Total time managing care of this patient today ____ minutes. Discharge coordination time: Greater than 30 minutes Quality: Safe Use of Opioids Does Pt have an Active Cancer Diagnosis on the Problem List?: No Quality: Stroke Does the patient have a stroke diagnosis?: No Physical Exam Vital Signs: Vital Signs: Last Vital Signs Temp 97.6 F 06/25/22 07:58 Pulse 87 06/25/22 07:58 Resp 18 06/25/22 07:58 BP 156/68 H 06/25/22 07:58 Pulse Ox 97 06/25/22 07:58 O2 Del Method 06/25/22 07:58 O2 Flow Rate 0 06/23/22 14:27 BMI result Body Mass Index 32.1 Const: Other: Constitutional : Awake, interactive, not in distress Neck : Normal inspection, Supple Cardiovascular : RRR, no JVP, no lower extremity edema Respiratory : good bilateral air entry, no crackles, wheezes or rhonchi Gastrointestinal: soft, lax, Normal bowel sounds, Non tender Skin : Warm, Dry, stage II to ulcers Neurological : Alert & oriented , lower extremities weakness DS: Data Data Completed and Pending Completed studies during hospitalization [Text1]: Pending at discharge 06/23/22 14:01 Surgical [PTH] Routine Labs on day of discharge: Laboratory Results - last 24 hr 06/22/22 06/24/22 06/24/22 03:53 12:25 18:06 WBC RBC Hgb Hct MCV MCH MCHC RDW Plt Count MPV Immature Gran % (Auto) Neut % (Auto) Lymph % (Auto) Bowman % (Auto) Eos % (Auto) Baso % (Auto) Lymph # (Auto) Bowman # (Auto) Eos # (Auto) Baso # (Auto) Abs Immat Gran (auto) Absolute Neuts (auto) Absolute Nucleated RBC Nucleated RBC % (auto) Smear Tech's Comments Sodium 143 Potassium 3.2 L Chloride 112 H Carbon Dioxide 22 Anion Gap 12 BUN 18 H Creatinine 0.81 Estim Creat Clear Calc 86.9 Estimated GFR > 60 POC Glucose 94 Random Glucose 111 D Calcium 8.2 L Blood Type A Positive Antibody Screen NEGATIVE Crossmatch See Detail 06/24/22 06/25/22 06/25/22 20:01 06:31 06:31 WBC 4.6 L RBC 3.10 L Hgb 8.9 L Hct 28.1 L MCV 90.6 MCH 28.7 MCHC 31.7 RDW 17.4 H Plt Count 199 MPV 10.5 Immature Gran % (Auto) 0.9 H Neut % (Auto) 70.6 Lymph % (Auto) 17.8 L Bowman % (Auto) 8.3 Eos % (Auto) 2.0 Baso % (Auto) 0.4 Lymph # (Auto) 0.8 L Bowman # (Auto) 0.4 Eos # (Auto) 0.1 Baso # (Auto) 0.0 Abs Immat Gran (auto) 0.04 H Absolute Neuts (auto) 3.2 Absolute Nucleated RBC 0.040 H Nucleated RBC % (auto) 0.9 H Smear Tech's Comments VERIFIED Sodium 144 Potassium 4.0 D Chloride 115 H Carbon Dioxide 19 L Anion Gap 14 BUN 13 Creatinine 0.82 Estim Creat Clear Calc 85.9 Estimated GFR > 60 POC Glucose 95 Random Glucose 88 Calcium 7.9 L Blood Type Antibody Screen Crossmatch 06/25/22 06/25/22 08:04 11:18 WBC RBC Hgb Hct MCV MCH MCHC RDW Plt Count MPV Immature Gran % (Auto) Neut % (Auto) Lymph % (Auto) Bowman % (Auto) Eos % (Auto) Baso % (Auto) Lymph # (Auto) Bowman # (Auto) Eos # (Auto) Baso # (Auto) Abs Immat Gran (auto) Absolute Neuts (auto) Absolute Nucleated RBC Nucleated RBC % (auto) Smear Tech's Comments Sodium Potassium Chloride Carbon Dioxide Anion Gap BUN Creatinine Estim Creat Clear Calc Estimated GFR POC Glucose 86 92 Random Glucose Calcium Blood Type Antibody Screen Crossmatch Imaging Chest x-ray: Radiologist's impression: ITS Impressions Abdomen/Pelvis CT 06/22/22 05:45 IMPRESSION: 1. Cholelithiasis but no evidence of acute cholecystitis. 2. Diverticulosis with chronic wall thickening of the sigmoid colon and no significant inflammatory changes to suspect acute diverticulitis. 3. An irregular soft tissue nodule adjacent to the sigmoid colon likely represents scarring sequela of prior diverticulitis. Continued follow-up recommended to ensure stability over time. 4. Hepatic steatosis. 5. Small hiatal hernia. 6. Chronic interstitial lung disease. Hand/Wrist X-Ray 06/23/22 14:55 IMPRESSION: Prominent dorsal soft tissue swelling at the wrist. No acute osseous abnormality. Degenerative changes throughout the hand and wrist. Small erosions at the second and fifth digit middle phalanges. There could be a component of inflammatory arthritis. Discharge Plan Discharge Anticipated Discharge Date/Time: 06/25/22 12:31 Patient Disposition: Home Health Service Discharge Diagnosis: acute gastrointestinal bleeding: gastric ulcers Referrals: [facility] [Outside] - 1 Week Justino Lara MD [Primary Care Provider] - 1 Week Discharge Medications: New pantoprazole 40 mg tablet,delayed release (DR/EC) 40 mg PO BID Qty: 60 0RF Continued rosuvastatin 20 mg tablet 20 mg PO DAILY 90 Days Qty: 90 0RF quetiapine 25 mg tablet 1 tab PO BEDTIME azathioprine [Imuran] 50 mg tablet 50 mg PO TID pyridostigmine bromide 60 mg tablet 1 tab PO QID loperamide 2 mg capsule 2 mg PO BID@0800,1600 PRN (Reason: Diarrhea) mycophenolate mofetil [CellCept] 500 mg tablet 1 tab PO BID@0800,1600 gabapentin 300 mg capsule 1 cap PO BID@0800,1600 prednisone 10 mg tablet 25 mg PO DAILY Rx Instructions: day 2 of 7 triamcinolone acetonide 0.1 % cream 1 appl topical BID PRN (Reason: Inflammation) Rx Instructions: apply to inflamed portions around the open wounds mirtazapine 30 mg tablet 1 tab PO BEDTIME albuterol sulfate [Ventolin HFA] 90 mcg/actuation HFA aerosol inhaler 2 puff inhalation Q4H PRN (Reason: Wheezing) clotrimazole 1 % cream 1 appl TOPICAL BID PRN (Reason: fungus, toes) Rx Instructions: apply to toes mupirocin 2 % ointment 1 applic topical BID Rx Instructions: apply to open wound oxycodone 5 mg Tablet 10 mg PO Q6H PRN (Reason: Pain, Severe (Pain Scale 7-10)) Qty: 20 0RF Rx Instructions: Partial Fill upon patient request. amlodipine 5 mg Tablet 5 mg PO DAILY Qty: 30 0RF Protocol: Hold for SBP< HOLD for SBP < : 90 furosemide [Lasix] 20 mg tablet 20 mg PO DAILY Qty: 30 0RF valsartan 40 mg tablet 40 mg PO DAILY Qty: 60 0RF ondansetron HCl 4 mg Tablet 4 mg PO Q8H PRN (Reason: Nausea) acetaminophen 650 mg Tablet 650 mg PO Q4H PRN (Reason: Pain) Held Eliquis 5 mg tablet 5 mg PO BID Qty: 90 0RF Hold Instructions: until you repeat endoscopy and clearance by aws software development engineer Rx Instructions: Take 10mg(2 tabs) twice daily until 04/28; starting 04/29 take 5mg(1 tab) twice daily Discharge Orders: Discharge Order (Routine); Ordered 06/25/22 Ordered By: Johanne Blanco Diet: Advance to usual diet Activity on Discharge: As tolerated Stand Alone Forms: Patient Portal Discharge page Care Plan Goals: Read below Health Concerns: Read below Plan of Treatment: Read below Assessment: you were admitted to the title for evaluation of bleeding per rectum And anemia requiring 2 units transfusion and evaluation by aws software development engineer who did an upper endoscopy showing evidence of 6 gastric ulcers with erosive esophagitis. Eliquis was held as IVC filter was placed. Avoid aspirin, NSAIDs Start pantoprazole 40 mg twice daily Hold Eliquis and your repeat EGD To follow-up with Gastroenterology as outpatient for repeat of endoscopy in 2 weeks
--- NOTE | 2022-06-25 13:22 | MHC.CM.PN ---
[facility] CAN TRANSPORT PATIENT HOME AT APPROX. 1630 TODAY DAUGHTER ESPERANZA [phone], PATIENT, RN, AND UNIT AWARE OF PLAN. IMM 06/24 IN CHART BREANNA GRANADOS AWARE OF PLAN.
--- NOTE | 2022-06-25 13:32 | PM.GIPN ---
Subjective Subjective Date of Service: 06/25/22 Interval History: denies abd pain Critical Care Time (minutes): 0 Physical Exam Vital Signs: Vital Signs: Last Vital Signs Temp 97.6 F 06/25/22 07:58 Pulse 87 06/25/22 07:58 Resp 18 06/25/22 07:58 BP 156/68 H 06/25/22 07:58 Pulse Ox 97 06/25/22 07:58 O2 Del Method 06/25/22 07:58 O2 Flow Rate 0 06/23/22 14:27 BMI result Body Mass Index 32.1 GI: Other: abdomen is soft and nontender Objective Data Labs CBC & Chem 7: 06/25/22 06:31 06/25/22 06:31 Procedures Date of Service Date of Service: 06/25/22 Progress Note: A&P Assessment and plan (1) GI bleed: Status: Acute Plan appears stable off anticoagulation reviewed pathology with patient, no h pylori or malignancy repeat egd in 10-12 weeks continue ppi Time Spent With Patient Time: Total time managing care of this patient today ____ minutes. Quality Stroke Does the patient have a stroke diagnosis?: No VTE Prior VTE?: Yes VTE Risk Level:: Medical - moderate - high VTE Device Contraindication: N/A - Device Ordered VTE Drug Contraindication: Treatment Not Tolerated
[2022-06-25] MEDS: 0.9 % Sodium Chloride Flush 3 ML SYRINGE IVFLUSH (16:23)
[2022-06-25] MEDS: ondansetron HCL 4 MG/2 ML VIAL IVPUSH (16:27)
--- NOTE | 2022-06-26 11:18 | HO.WOUNDCONS ---
History of Present Illness Data of Consult Service Date: 06/25/22 Requesting physician: Emi Zamora Primary Care Provider: Justino aLra MD HPI Reason for consult: decubitus wound the pt is here with a GI bleed and med management has been for this. pt was noted to have a stage 2 decubitus wound which may have been present before coming in. pt not as mobile and has been weak PMFSH Medical History Acute hyperglycemia Ascites Aspiration pneumonia Candidiasis, intertriginous CHF (congestive heart failure) Diabetes Diabetes mellitus, type 2 DVT (deep venous thrombosis) Edema Erythema of lower extremity Hypercholesteremia Hypertension Intractable nausea and vomiting Leg edema Microscopic hematuria Myasthenia gravis Myocardial infarction Obesity Pneumonia due to COVID-19 virus TBI (traumatic brain injury) Urinary tract infection Weakness Family History Mother No problems noted. Father No problems noted. Other No family history of coronary artery disease Surgical History (Updated 06/23/22 @ 13:39 by Helga Gu RN) Hx of colonoscopy Social History Household Members: Family Housing: House Do you presently have visiting nurse or other home services: Yes Unable to assess alcohol history related to: Unknown Alcohol intake: former Patient Tobacco Use Status: Former Tobacco user Tobacco use type: Cigarette Second Hand Smoke Exposure: Yes Substance Use Type: Former Substance User Advance Directives Date on File: 05/05/21 service: No Current occupational status: retired Meds Allergies Allergy/AdvReac Type Severity Reaction Status Date / Time No Known Allergies Allergy Verified 06/23/22 12:20 [No Known Allergies*] Home Medications Medication Instructions Recorded Confirmed Last Taken Type azathioprine 50 mg tablet (Imuran) 50 mg PO TID 06/02/20 06/22/22 05/19/22 History pyridostigmine bromide 60 mg tablet 1 tab PO QID 06/02/20 06/22/22 05/19/22 History quetiapine 25 mg tablet 1 tab PO BEDTIME 06/02/20 06/22/22 05/19/22 History gabapentin 300 mg capsule 1 cap PO BID@0800,1600 08/24/21 06/22/22 05/19/22 History loperamide 2 mg capsule 2 mg PO BID@0800,1600 PRN Diarrhea 08/24/21 06/22/22 05/19/22 History mycophenolate mofetil 500 mg 1 tab PO BID@0800,1600 08/24/21 06/22/22 05/19/22 History tablet (CellCept) prednisone 10 mg tablet 25 mg PO DAILY 11/30/21 06/22/22 05/19/22 History albuterol sulfate 90 mcg/actuation 2 puff inhalation Q4H PRN Wheezing 01/23/22 06/22/22 05/19/22 History aerosol inhaler (Ventolin HFA) mirtazapine 30 mg tablet 1 tab PO BEDTIME 01/23/22 06/22/22 05/19/22 History triamcinolone acetonide 0.1 % 1 appl topical BID PRN Inflammation 01/23/22 06/22/22 05/19/22 History topical cream clotrimazole 1 % topical cream 1 appl topical BID PRN fungus, toes 06/06/22 06/22/22 Unknown History mupirocin 2 % topical ointment 1 applic topical BID 06/06/22 06/22/22 Unknown History acetaminophen 650 mg tablet 650 mg PO Q4H PRN Pain 06/22/22 06/22/22 Unknown History ondansetron HCl 4 mg tablet 4 mg PO Q8H PRN Nausea 06/22/22 06/22/22 Unknown History Physical Exam Vital Signs and Narrative: Vital Signs: Last Vital Signs Temp 97.6 F 06/25/22 07:58 Pulse 87 06/25/22 07:58 Resp 18 06/25/22 07:58 BP 156/68 H 06/25/22 07:58 Pulse Ox 97 06/25/22 07:58 O2 Del Method 06/25/22 07:58 O2 Flow Rate 0 06/23/22 14:27 BMI result Body Mass Index 32.1 Skin: Other: pt with sacral area with some superficial breakdown looking like stage 2 wound and surrounding erythema pt able to roll around in bed but not very easily Results Labs CBC and Chem 7: 06/25/22 06:31 06/25/22 06:31 Labs: Laboratory Results - last 24 hr 06/25/22 06/25/22 11:18 16:13 POC Glucose 92 93 Assessment and Plan (1) Decubital ulcer: Status: Acute Plan stage 2 decubitus wound - use zinc oxide, rotate and keep off back for long periods of time this should heal up well. if still an issue with dc then fu in clinic. Time Spent With Patient Time: Total time managing care of this patient today ____ minutes.
== END 2022-06-25 17:32 | disposition home health service (06) | DRG 381 ==
LOC: HO.ED 05:10 → HO.EDOVER 09:34 → HO.IMC 15:42 → HO.S3 06-24 14:20
PROVIDERS: Internal Medicine Gastroenterology; Physician Assistant; Radiology Diagnostic Radiology; Admitting Provider Family Medicine; Emergency Provider Student in an Organized Health Care Education/Training Program; PCP Internal Medicine; Visit Provider Student in an Organized Health Care Education/Training Program
PROC: 0DB78ZX Excision of Stomach, Pylorus, Via Natural or Artificial Opening Endoscopic, Diagnostic (ICD-10-PCS; principal; 2022-06-23 12:50)
DX: K22.11 Ulcer of esophagus with bleeding (principal); D62 Acute posthemorrhagic anemia; I25.2 Old myocardial infarction; E86.0 Dehydration; N18.30 Chronic kidney disease, stage 3 unspecified; E11.22 Type 2 diabetes mellitus with diabetic chronic kidney disease; E78.2 Mixed hyperlipidemia; I95.9 Hypotension, unspecified; I12.9 Hypertensive chronic kidney disease with stage 1 through stage 4 chronic kidney disease, or unspecified chronic kidney disease; E86.1 Hypovolemia; I87.8 Other specified disorders of veins; E11.65 Type 2 diabetes mellitus with hyperglycemia; K25.4 Chronic or unspecified gastric ulcer with hemorrhage; K26.4 Chronic or unspecified duodenal ulcer with hemorrhage; E11.40 Type 2 diabetes mellitus with diabetic neuropathy, unspecified; L89.322 Pressure ulcer of left buttock, stage 2; L89.312 Pressure ulcer of right buttock, stage 2; G70.00 Myasthenia gravis without (acute) exacerbation; F39 Unspecified mood [affective] disorder; Z66 Do not resuscitate; Z20.822 Contact with and (suspected) exposure to COVID-19; Z86.718 Personal history of other venous thrombosis and embolism; Z87.820 Personal history of traumatic brain injury; Z79.01 Long term (current) use of anticoagulants; Z79.899 Other long term (current) drug therapy
CPT/HCPCS: 0241U; 36415; 37191; 73110; 73130; 74176; 80048; 80053; 81003; 82272; 82947; 83735; 84484; 85025; 85027; 85610; 86850; 86900; 86901; 86923; 88305; 88342; 93005; 99152; 99153; 99285; C1769; C1880; J2370; J2405; J3430; J3475; J7168; P9016; P9017; Q9967

== ENCOUNTER 2022-07-10 02:16 | Inpatient (IN) | payer MEDICARE, MEDICAID, SELFPAY ==
[2022-07-10] VITALS (8 sets, daily range): BP systolic 104–158; BP diastolic 35–76; PULSE 70–95; RESP 15–18; TEMP 36.1–36.9; O2SAT 94–100; BMI 27.6
--- NOTE | ~2022-07-10 | XR_ITS ---
EXAMINATION: XR CHEST CLINICAL INFORMATION: Hypoglycemia COMPARISON: 05/19/2022 TECHNIQUE: Frontal view of the chest was obtained. FINDINGS: Chronic blunting of the left costophrenic sulcus associated streaky opacities in the adjacent lung parenchyma. No new or acute pulmonary parenchymal abnormalities. Normal heart size and pulmonary vessels. Aorta is atherosclerotic. XR/XR chest 1V IMPRESSION: No acute findings
--- NOTE | ~2022-07-10 | CT_ITS ---
EXAMINATION: CT ABDOMEN AND PELVIS WITHOUT CONTRAST CLINICAL INFORMATION: Abdominal pain COMPARISON: 06/22/2022 TECHNIQUE: Multidetector volumetric imaging was performed from the superior aspect of the liver through the pubic symphysis. Sagittal and coronal reformatted images were obtained on the technologist's workstation. This CT examination was performed using dose optimization techniques as appropriate, variously including the following: *Automated exposure control *Adjustment of mA and/or kV according to patient size (this includes techniques or standardized protocols for targeted exams where dose is matched to indication/reason for exam; i.e. extremities or head) *Use of iterative reconstruction technique DLP: 1113 mGy-cm FINDINGS: LUNG BASES: Coronary artery calcifications. Left basilar pleural thickening. Bibasilar reticulation could be a combination of atelectasis and chronic change. LIVER, GALLBLADDER, AND BILIARY TREE: The liver is normal in size, shape, and attenuation. No focal hepatic lesion or biliary ductal dilatation is present. Multiple stones in the gallbladder lumen. No wall thickening or adjacent inflammation. PANCREAS: Unremarkable. SPLEEN: Unremarkable. ADRENAL GLANDS: Unremarkable. KIDNEYS AND URETERS: The kidneys are normal in size, shape, and attenuation. No hydronephrosis, hydroureter, or calculi seen. Mild symmetric perinephric stranding. BLADDER: Unremarkable. GASTROINTESTINAL TRACT: The stomach is unremarkable. Normal caliber small bowel. No obstruction. Diverticulosis which is greatest at the sigmoid colon. No diverticulitis. There is the appearance of some scarring along the sigmoid colon, unchanged from previous imaging. No free air or free fluid. ABDOMINAL WALL: No significant hernia is appreciated. LYMPH NODES: Normal. VASCULAR: Normal caliber aorta with severe atherosclerotic calcification. PELVIC VISCERA: The prostate and seminal vesicles are unremarkable. OSSEOUS STRUCTURES: No acute or suspicious osseous abnormality. Osteopenia. Degenerative change throughout the spine. Degenerative changes of both hips. CT/CT abdomen pelvis wo IV con IMPRESSION: 1. No acute findings in the abdomen or pelvis. No inflammatory changes. 2. Cholelithiasis without evidence of acute cholecystitis. 3. Colonic diverticulosis without diverticulitis. Fleischner guidelines were followed.
--- NOTE | ~2022-07-10 | CT_ITS ---
EXAMINATION: CT HEAD WITHOUT CONTRAST CLINICAL INFORMATION: Reported right-sided weakness, facial droop. COMPARISON: Head CT scan dated 01/23/2022. TECHNIQUE: Contiguous axial imaging was performed from the skull base to vertex without intravenous administration of contrast. Coronal and sagittal reformatted images were obtained. This CT examination was performed using dose optimization techniques as appropriate, variously including the following: *Automated exposure control *Adjustment of mA and/or kV according to patient size (this includes techniques or standardized protocols for targeted exams where dose is matched to indication/reason for exam; i.e. extremities or head) *Use of iterative reconstruction technique DLP: 855 mGy-cm FINDINGS: There is mild widening of the cortical sulci and associated ventriculomegaly. The lateral ventricles are symmetrical. Mild periventricular microvascular changes are seen. The third and fourth ventricles are in their normal midline position. The basilar and prepontine cisterns are unremarkable. There is no acute intra or extracerebral abnormality. There is no mass effect or midline shift. Sections through the bony calvarium are unremarkable. The orbits are intact. The paranasal sinuses are clear. The mastoid air cells are clear. CT/CT head/brain wo IV con IMPRESSION: No acute intracranial pathology.
[2022-07-10 02:28] LABS: Glucose, Whole Blood 78 mg/dL (60-115)
--- NOTE | 2022-07-10 02:39 | PC.NURSE ---
Pt aox3. Arrived via ambulance due to hypoglycemia. Pt POC found to be 45 by EMS and improved to 139 with dextrose. Pt arrived with 18G L AC. Answers questions appropriately. No apparent distress noted. Current POC 78. MD aware.
[2022-07-10 02:56] LABS: Basophils Percent Auto 0.1 % (0-2); Hematocrit 33.6 % (42.0-52.0); Hemoglobin 10.9 g/dl (14.0-18.0); Imm Gran Pct Auto 0.7 % (0.0-0.4); Lymphocytes Absolute Auto 0.5 X10*3/uL (1.2-4.9); Lymphocytes Percent Auto 3.5 % (20-40); MANUAL DIFF FLAG SCAN; Mean Corpuscular HGB Conc 32.4 g/dl (31.0-36.0); Mean Corpuscular Hemoglobin 29.1 pg (27.0-33.0); Mean Corpuscular Volume 89.8 fL (80.0-98.0); Mean Platelet Volume 9.6 fL (9.4-12.4); Monocytes Absolute Auto 0.3 X10*3/uL (0.1-1.2); Monocytes Percent Auto 2.4 % (2-11); NRBC Pct Auto 0.1 /100WBC (0.0-0.2); Neutrophils Absolute Auto 13.4 x10*3/uL (2.0-8.3); Neutrophils Percent Auto 93.3 % (45-73); Platelet Count 275 X10*3/uL (160-400); Red Blood Count 3.74 X10*6/uL (4.60-5.80); Red Cell Distribution Width 17.7 % (11.0-16.0); SCAN SMEAR FLAG 1; White Blood Count 14.4 X10*3/uL (4.8-10.8)
[2022-07-10 03:12] LABS: Alanine Aminotransferase 15 U/L (0-40); Albumin Level 3.2 g/dL (3.5-5.0); Alkaline Phosphatase 65 U/L (39-117); Anion Gap 19 (12-20); Aspartate Amino Transferase 30 U/L (5-37); Bilirubin Total 0.7 mg/dL (0.0-1.0); Blood Urea Nitrogen 18 mg/dL (9-16); Calcium 7.9 mg/dL (8.4-10.2); Carbon Dioxide 21 mmol/L (22-29); Chloride 97 mmol/L (96-108); Creatinine Clr Calc Pharmacy 58.4; Estimated Glomerular Filt Rate > 60; Glucose Random 297 mg/dL (60-115); Sodium 134 mmol/L (135-145); Total Protein 5.4 g/dL (6.5-8.0)
[2022-07-10 03:13] LABS: SLIDE REVIEW VERIFIED
--- NOTE | 2022-07-10 03:15 | ED_ITS ---
HPI - General Adult General Chief complaint: General Medical Stated complaint: AMS INTIAL POC45 Time Seen by Provider: 07/10/22 02:56 Source: patient and EMS Mode of arrival: EMS Limitations: no limitations History of Present Illness HPI narrative: Patient is 72 years old with history of TBI status post cardiac arrest with ROSC about 8 years ago, type 2 diabetes mellitus on metformin, CKD stage 3, myasthenia gravis, hypertension, hyperlipidemia history of bilateral DVT was on Eliquis, history of recent GI bleed discharged on 06/25/2022 blood via EMS for increased lethargy and weakness noticed to have POC of 45 responded to dextrose 12.5 g on arrival blood glucose 139 patient had normal speech say is. does not like to eat as he does not like the food. Patient was in very unkept condition says his granddaughter takes care of him Related Data Home Medications Medication Instructions Recorded Confirmed azathioprine 50 mg tablet (Imuran) 50 mg PO TID 06/02/20 06/22/22 pyridostigmine bromide 60 mg tablet 1 tab PO QID 06/02/20 06/22/22 quetiapine 25 mg tablet 1 tab PO BEDTIME 06/02/20 06/22/22 gabapentin 300 mg capsule 1 cap PO BID@0800,1600 08/24/21 06/22/22 loperamide 2 mg capsule 2 mg PO BID@0800,1600 PRN Diarrhea 08/24/21 06/22/22 mycophenolate mofetil 500 mg 1 tab PO BID@0800,1600 08/24/21 06/22/22 tablet (CellCept) prednisone 10 mg tablet 25 mg PO DAILY 11/30/21 06/22/22 albuterol sulfate 90 mcg/actuation 2 puff inhalation Q4H PRN Wheezing 01/23/22 06/22/22 aerosol inhaler (Ventolin HFA) mirtazapine 30 mg tablet 1 tab PO BEDTIME 01/23/22 06/22/22 triamcinolone acetonide 0.1 % 1 appl topical BID PRN Inflammation 01/23/22 06/22/22 topical cream clotrimazole 1 % topical cream 1 appl topical BID PRN fungus, toes 06/06/22 06/22/22 mupirocin 2 % topical ointment 1 applic topical BID 06/06/22 06/22/22 acetaminophen 650 mg tablet 650 mg PO Q4H PRN Pain 06/22/22 06/22/22 ondansetron HCl 4 mg tablet 4 mg PO Q8H PRN Nausea 06/22/22 06/22/22 Previous Rx's Medication Instructions Recorded apixaban 5 mg tablet (Eliquis) 5 mg PO BID #90 tabs 04/22/22 rosuvastatin 20 mg tablet 20 mg PO DAILY 90 days #90 tabs 05/15/22 amlodipine 5 mg tablet 5 mg PO DAILY #30 tabs 06/09/22 furosemide 20 mg tablet (Lasix) 20 mg PO DAILY #30 tabs 06/09/22 oxycodone 5 mg tablet 10 mg PO Q6H PRN Pain, Severe 06/09/22 (Pain Scale 7-10) #20 tabs valsartan 40 mg tablet 40 mg PO DAILY #60 tabs 06/09/22 pantoprazole 40 mg tablet,delayed 40 mg PO BID #60 tabs 06/25/22 release Allergies Allergy/AdvReac Type Severity Reaction Status Date / Time No Known Allergies Allergy Verified 06/23/22 12:20 [No Known Allergies*] Review of Systems Review of Systems: Yes all other systems are reviewed and are negative PMFSH Past Medical History Medical History Acute hyperglycemia Ascites Aspiration pneumonia Candidiasis, intertriginous CHF (congestive heart failure) Diabetes Diabetes mellitus, type 2 DVT (deep venous thrombosis) Edema Erythema of lower extremity Hypercholesteremia Hypertension Intractable nausea and vomiting Leg edema Microscopic hematuria Myasthenia gravis Myocardial infarction Obesity Pneumonia due to COVID-19 virus TBI (traumatic brain injury) Urinary tract infection Weakness Surgical History Hx of colonoscopy Family History Family History Mother No problems noted. Father No problems noted. Other No family history of coronary artery disease Social History Social History Household Members: Family Housing: House Do you presently have visiting nurse or other home services: Yes Unable to assess alcohol history related to: Unknown Alcohol intake: former Patient Tobacco Use Status: Former Tobacco user Tobacco use type: Cigarette Second Hand Smoke Exposure: Yes Substance Use Type: Former Substance User Advance Directives: Yes Advance Directives on File: Yes Advance Directives Date on File: 05/05/21 service: No Current occupational status: retired Physical Exam ED Vital Signs: Vital Signs - 24 hr 07/10/22 02:31 07/10/22 04:32 07/10/22 06:29 Temperature 97.9 F 97.9 F 97.9 F Pulse Rate 85 81 91 Respiratory Rate 18 15 16 Blood Pressure 143/62 H 139/56 L 104/35 L Pulse Oximetry 97 94 95 Oxygen Delivery Method Room Air Room Air Room Air BMI result Body Mass Index 27.6 Appearance: Alert. Oriented X3. No acute distress. Unkept unclean Eyes: PERRLA, No Nystagmus ENT: Pharynx normal. Oral Mucosa moist poor oral hygiene Neck: Normal inspection. Neck supple. CVS: Normal heart rate and rhythm. Pulses normal. Respiratory: No respiratory distress. Equal air entry bilateral, no wheezing/rales/rhonchi Abdomen: Soft and nontender. Bowel sounds are present, no mass palpable, no CVA tenderness Skin: Skin warm and dry. Normal skin color. Normal skin turgor. Gluteal decubitus+ Extremities: No lower extremity edema. No calf tenderness Neuro: Oriented X 3. No motor deficit. No sensory deficit.No cerebellar signs , cranial nerves II-XII intact Medications Administered Generic Name Dose Route Start Last Admin Trade Name Freq PRN Reason Stop Dose Admin Potassium Chloride 10 meq in 100 mls @ 100 mls/hr 07/10/22 06:22 07/10/22 06:27 Potassium Chloride/H20 IV 07/10/22 07:21 100 mls/hr ONCE ONE Administration Discontinued Medications Generic Name Dose Route Start Last Admin Trade Name Freq PRN Reason Stop Dose Admin Dextrose 25 gm 07/10/22 06:21 07/10/22 06:25 Dextrose 50 % 25 Gm/50 Ml Syringe IVPUSH 07/10/22 06:22 25 gm ONCE ONE Administration Ondansetron HCl 4 mg 07/10/22 06:39 07/10/22 06:52 Ondansetron Hcl 4 Mg/2 Ml Vial IVPUSH 07/10/22 06:40 4 mg ONCE ONE Administration Medical Decision Making Medical Decision Making MDM Narrative: 06:00 During stay in the ER patient did want to eat much had only few bites of sandwich recheck blood sugar was 44 again will give him dextrose and p.o. food plan to get case management involved for placement Differential Diagnosis Differential Diagnoses: The differential diagnosis associated with the presentation includes UTI/liver dysfunction/medication side-effect/infection Lab Data MDM Lab Attestation statement: I reviewed the patient's lab results. 07/10/22 02:52 07/10/22 02:52 Labs: Lab Results 07/10/22 07/10/22 07/10/22 Range/Units 02:25 02:52 02:52 WBC 14.4 H (4.8-10.8) X10*3/uL RBC 3.74 L D (4.60-5.80) X10*6/uL Hgb 10.9 L D (14.0-18.0) g/dl Hct 33.6 L (42.0-52.0) % MCV 89.8 (80.0-98.0) fL MCH 29.1 (27.0-33.0) pg MCHC 32.4 (31.0-36.0) g/dl RDW 17.7 H (11.0-16.0) % Plt Count 275 D (160-400) X10*3/uL MPV 9.6 (9.4-12.4) fL Immature Gran % (Auto) 0.7 H (0.0-0.4) % Neut % (Auto) 93.3 H (45-73) % Lymph % (Auto) 3.5 L (20-40) % [place] % (Auto) 2.4 (2-11) % Eos % (Auto) 0.0 (0-4) % Baso % (Auto) 0.1 (0-2) % Lymph # (Auto) 0.5 L (1.2-4.9) X10*3/uL [place] # (Auto) 0.3 (0.1-1.2) X10*3/uL Eos # (Auto) 0.0 (0.0-0.4) X10*3/uL Baso # (Auto) 0.0 (0.0-0.2) X10*3/uL Abs Immat Gran (auto) 0.10 H (0.00-0.03) X10*3/uL Absolute Neuts (auto) 13.4 H (2.0-8.3) x10*3/uL Absolute Nucleated RBC 0.020 H (0.0-0.012) X10*3/uL Nucleated RBC % (auto) 0.1 (0.0-0.2) /100WBC Smear Tech's Comments VERIFIED Sodium 134 L (135-145) mmol/L Potassium 3.0 L D (3.3-5.1) mmol/L Chloride 97 (96-108) mmol/L Carbon Dioxide 21 L (22-29) mmol/L Anion Gap 19 (12-20) BUN 18 H (9-16) mg/dL Creatinine 1.16 (0.5-1.4) mg/dL Estim Creat Clear Calc 58.4 Estimated GFR > 60 POC Glucose 78 (60-115) mg/dL Random Glucose 297 H (60-115) mg/dL Calcium 7.9 L (8.4-10.2) mg/dL Total Bilirubin 0.7 (0.0-1.0) mg/dL AST 30 (5-37) U/L ALT 15 (0-40) U/L Alkaline Phosphatase 65 (39-117) U/L Total Protein 5.4 L (6.5-8.0) g/dL Albumin 3.2 L (3.5-5.0) g/dL COVID-19 ([facility]) (Negative) COVID-19 Clin Com 07/10/22 07/10/22 07/10/22 Range/Units 06:20 06:37 06:38 WBC (4.8-10.8) X10*3/uL RBC (4.60-5.80) X10*6/uL Hgb (14.0-18.0) g/dl Hct (42.0-52.0) % MCV (80.0-98.0) fL MCH (27.0-33.0) pg MCHC (31.0-36.0) g/dl RDW (11.0-16.0) % Plt Count (160-400) X10*3/uL MPV (9.4-12.4) fL Immature Gran % (Auto) (0.0-0.4) % Neut % (Auto) (45-73) % Lymph % (Auto) (20-40) % [place] % (Auto) (2-11) % Eos % (Auto) (0-4) % Baso % (Auto) (0-2) % Lymph # (Auto) (1.2-4.9) X10*3/uL [place] # (Auto) (0.1-1.2) X10*3/uL Eos # (Auto) (0.0-0.4) X10*3/uL Baso # (Auto) (0.0-0.2) X10*3/uL Abs Immat Gran (auto) (0.00-0.03) X10*3/uL Absolute Neuts (auto) (2.0-8.3) x10*3/uL Absolute Nucleated RBC (0.0-0.012) X10*3/uL Nucleated RBC % (auto) (0.0-0.2) /100WBC Smear Tech's Comments Sodium (135-145) mmol/L Potassium (3.3-5.1) mmol/L Chloride (96-108) mmol/L Carbon Dioxide (22-29) mmol/L Anion Gap (12-20) BUN (9-16) mg/dL Creatinine (0.5-1.4) mg/dL Estim Creat Clear Calc Estimated GFR POC Glucose 44 L* 156 H (60-115) mg/dL Random Glucose (60-115) mg/dL Calcium (8.4-10.2) mg/dL Total Bilirubin (0.0-1.0) mg/dL AST (5-37) U/L ALT (0-40) U/L Alkaline Phosphatase (39-117) U/L Total Protein (6.5-8.0) g/dL Albumin (3.5-5.0) g/dL COVID-19 ([facility]) Negative (Negative) COVID-19 Clin Com See Note Discharge Plan Discharge Clinical Impression: Weakness, Decubital ulcer, Hypoglycemia due to type 2 diabetes mellitus Patient Disposition: Still a Patient Prescriptions: No Action rosuvastatin 20 mg tablet 20 mg PO DAILY 90 Days Qty: 90 0RF quetiapine 25 mg tablet 1 tab PO BEDTIME azathioprine [Imuran] 50 mg tablet 50 mg PO TID pyridostigmine bromide 60 mg tablet 1 tab PO QID loperamide 2 mg capsule 2 mg PO BID@0800,1600 PRN (Reason: Diarrhea) mycophenolate mofetil [CellCept] 500 mg tablet 1 tab PO BID@0800,1600 gabapentin 300 mg capsule 1 cap PO BID@0800,1600 prednisone 10 mg tablet 25 mg PO DAILY Rx Instructions: day 2 of 7 triamcinolone acetonide 0.1 % cream 1 appl topical BID PRN (Reason: Inflammation) Rx Instructions: apply to inflamed portions around the open wounds mirtazapine 30 mg tablet 1 tab PO BEDTIME albuterol sulfate [Ventolin HFA] 90 mcg/actuation HFA aerosol inhaler 2 puff inhalation Q4H PRN (Reason: Wheezing) Eliquis 5 mg tablet 5 mg PO BID Qty: 90 0RF Hold Instructions: until you repeat endoscopy and 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 amlodipine 5 mg Tablet 5 mg PO DAILY Qty: 30 0RF Protocol: Hold for SBP< HOLD for SBP < : 90 furosemide [Lasix] 20 mg tablet 20 mg PO DAILY Qty: 30 0RF valsartan 40 mg tablet 40 mg PO DAILY Qty: 60 0RF ondansetron HCl 4 mg Tablet 4 mg PO Q8H PRN (Reason: Nausea) acetaminophen 650 mg Tablet 650 mg PO Q4H PRN (Reason: Pain) pantoprazole 40 mg tablet,delayed release (DR/EC) 40 mg PO BID Qty: 60 0RF
--- NOTE | 2022-07-10 03:25 | PC.NURSE ---
Food and liquid provided to pt. Pt consume very little and refused to continue eating. Reports not liking any food. aware.
--- NOTE | 2022-07-10 03:38 | PC.NURSE ---
Telephone call made to pts spouse, Sheryl Donato, who reports pt does not eat very well and refuses to eat meals often. Education provided to Sheryl regarding importance to encourage and ensure pt eats at least three meals a day and snacks in order to prevent another episode of hypoglycemia. Sheryl reports working most of the time and that a daughter provides care for the pt. Sheryl will discuss meal planning with pts dajose as well. At this time Sheryl is not able to provide transportation for pt to return home. MD james.
[2022-07-10] MEDS: Dextrose 50 % 25 GM/50 ML SYRINGE IVPUSH ×2 (06:25→11:50)
[2022-07-10 06:27] LABS: Glucose, Whole Blood 44 mg/dL (60-115)
[2022-07-10] MEDS: Potassium Chloride/H20 10 MEQ/100 ML PIGGYBACK 100 MEQ IV (06:27)
--- NOTE | 2022-07-10 06:29 | MHC.EDTECH ---
pt was incontinent of large amount of stool ,care given ,barrier cream apply to pt bottom ,pt has 2 open area on his coccyx ,rn aware ,pt said his brief was not change in 3 days.
[2022-07-10 06:42] LABS: Glucose, Whole Blood 156 mg/dL (60-115)
[2022-07-10] MEDS: ondansetron HCL 4 MG/2 ML VIAL IVPUSH (06:52)
[2022-07-10 06:57] LABS: COVID-19 Test Negative (Negative); IDNOW Serial# 16C4AD1C
[2022-07-10 06:58] LABS: IDNOW Serial# BCCEAD1C; Influenza A Negative (Negative); Influenza B2 Negative (Negative)
--- NOTE | 2022-07-10 07:01 | PC.NURSE ---
assumed care of patient, pt aox3 but confused at times, VSS at this time, plan for close glucose monitoring and case management c/s
--- NOTE | 2022-07-10 10:40 | PC.NURSE ---
pt cleaned up, turned and repositioned, resting comfortably in bed, VSS
--- NOTE | 2022-07-10 11:43 | MHC.CM.ED ---
Addendum entered by Eveline Kelly 07/10/22 13:29: Per conversation w/ED PA, pt does not appear medically stable to return to home. Pt to be admitted for further care with the d/c plan to continue to be a return to home w/family support. Original Note: Met with pt to review d/c planning needs: he defers to his dtr Lucila. Call placed to review d/c planning: pt resides at home with 24/7 care provided by his dtrs and [facility]. Dtrs are [employer] and feel extremely comfortable and capable of meeting pt's needs. STR discussed to which dtr Lucila stated, absolutely not, he'll come home. Dtr verbalized concern w/pt's muscle weakness and inability to tolerate po as pt has a hx of MG - This information was relayed to ED PA for further w/u. In review of pt's clinical data, he has a WBC of 14 and a UA pending: in addition, he had other electrolye abnormalities. Pt may be a candidate for admission - will allow PA to complete assessment and make a determination. If pt is cleared to go home, he will need BLS transport per dtr. Updated ED RN and PA. ED CM to follow for return to home with existing services
[2022-07-10 11:46] LABS: Glucose, Whole Blood 52 mg/dL (60-115)
[2022-07-10] MEDS: Dextrose 5 % 1,000 ML 100 ML IVCONT (11:53)
--- NOTE | 2022-07-10 13:57 | PC.NURSE ---
patient resting comfortably in bed, VSS, denies any needs at this time.
--- NOTE | 2022-07-10 14:38 | PHA.MEDREC ---
Pharmacy Consult ? Medication Reconciliation Pharmacy has completed the medication reconciliation. Previous note states that patient's eliquis was discontinued. Patient is on and off metformin 1000mg bid - currently off at home due to stable blood sugar as stated per daughter Lucila ([phone]) which manages his medications for him. Patient was last started back on metformin last week, however has been stopped on it by daughter. Patient's daughter gives patient furosemide 20mg and valsartan 40mg daily.
--- NOTE | 2022-07-10 14:48 | P.HPHOSP_ITS ---
History of Present Illness Date of Service: 07/10/22 Attending physician on admission: Jose Orantes Chief Complaint: AMS and weakness Pt is a 72-year-old male with a PMH significant for?TBI s/p cardiac arrest with ROSC 8 years ago, dm 2, CKD 3, decubitus ulcers stage II, myasthenia gravis, es sential HTN, HLD, and chronic bilateral lower extremity edema likely secondary to venous stasis who presents to the ED from home via EMS for AMS, increased lethargy, and weakness. HPI difficult to obtain due to patient's state of confusion. Patient confused at baseline. Part of HPI obtained from family, whom he lives with. According to the daughter patient has been nauseous and had decreased appetite for the past 3-4 days. Patient was recently at rehab and returned home on 06/25. Prior to this he was ambulatory with a walker, but after return has been nonambulatory. Family noticed that the patient has been progressively weak the past 3-4 days, but this morning they noticed he was more confused and could not even get out of bed. They also noted he had right-sided arm weakness and right-sided facial droop and difficulty talking; the family claims this last information was not properly conveyed to EMS, and thus not to the ED department at the hospital. The patient himself states that he has been ?sneaking? his meds and throwing them away while his family is not looking. Patient also states that he has not been eating or drinking because hard to swallow and food taste funny. Patient says he has been nauseous, lightheaded, dizzy. He also says that his heels hurt. Of note patient had recent admissions on 04/21 for bilateral DVT started on Eliquis, and 06/22/2022 for acute blood loss anemia secondary to upper GI bleed from 6 gastric ulcers, erosive esophagitis, and duodenal ulcer. On 06/24/2022 patient had successful placement of an infrarenal IVC filter. Patient also has a history of myasthenia gravis with his last crisis in 2019. In the ED patient was found have a glucose of 45. Labs were significant for leukocytosis of 14.4, H&H of 10.9/33.6 (at baseline), hypo kalemia 3.0. CXR was clear. CT?of abdomen and pelvis showed no acute findings or inflammatory ch anges, cholelithiasis without evidence of acute cholecystitis, and colonic diverticulosis without diverticulitis. UA was clear. Tested negative for influenza A, B, RSV, COVID. Pt was treated with dextrose and D5 IVF. Pt will be admitted to the hospital for treatment and evaluation of acute encephalopathy likely secondary to hypoglycemia. Review of Systems Review of Systems: HPI difficult to obtain due to patient's mentation Confusion Generalized weakness and fatigue Nausea Yes all other systems are reviewed and are negative [facility] Medical History Acute hyperglycemia Ascites Aspiration pneumonia Candidiasis, intertriginous CHF (congestive heart failure) Diabetes Diabetes mellitus, type 2 DVT (deep venous thrombosis) Edema Erythema of lower extremity Hypercholesteremia Hypertension Intractable nausea and vomiting Leg edema Microscopic hematuria Myasthenia gravis Myocardial infarction Obesity Pneumonia due to COVID-19 virus TBI (traumatic brain injury) Urinary tract infection Weakness Family History Mother No problems noted. Father No problems noted. Other No family history of coronary artery disease Surgical History Hx of colonoscopy Social History Household Members: Family Housing: House Do you presently have visiting nurse or other home services: No Unable to assess alcohol history related to: Unknown Alcohol intake: former Patient Tobacco Use Status: Former Tobacco user Tobacco use type: Cigarette Smoked in Last 30 Days: No Second Hand Smoke Exposure: Yes Use of substances other than those prescribed or required for medical reasons: No Substance Use Type: Former Substance User Currently Displaying Signs/Symptoms of Drug Intoxication Withdrawal: No Have you been hit, kicked, punched, or otherwise hurt by someone within the past year? If so, by whom?: No Do you feel safe in your current relationship?: Yes Is there a partner from a previous relationship who is making you feel unsafe now?: No Are you made to feel afraid or neglected: No Advance Directives: Yes Advance Directives on File: Yes Advance Directives Date on File: 05/05/21 Do you have thoughts of harming others: None Do you have a plan to hurt others: No Plan Recently lost weight without trying: No Nutrition Risks: Difficulty swallowing service: No Current occupational status: retired Meds Allergies Allergy/AdvReac Type Severity Reaction Status Date / Time No Known Allergies Allergy Verified 06/23/22 12:20 [No Known Allergies*] Active Medications: Current Medications Dextrose (D5w) 1,000 mls @ 100 mls/hr IVCONT .Q10H PELON Last Admin: 07/10/22 11:53 Dose: 100 mls/hr Pharmacy Consult (Consult Rx Perform Med Rec) 1 each MISCELLANE ONCE PRN PRN Reason: Consult order Home Medications Medication Instructions Recorded Confirmed Last Taken Type azathioprine 50 mg tablet (Imuran) 50 mg PO TID 06/02/20 07/10/22 1 Day Ago History ~07/09/22 pyridostigmine bromide 60 mg tablet 1 tab PO QID 06/02/20 07/10/22 1 Day Ago History ~07/09/22 quetiapine 25 mg tablet 1 tab PO BEDTIME 06/02/20 07/10/22 1 Day Ago History ~07/09/22 gabapentin 300 mg capsule 1 cap PO BID@0800,1600 08/24/21 07/10/22 1 Day Ago History ~07/09/22 loperamide 2 mg capsule 2 mg PO BID@0800,1600 PRN Diarrhea 08/24/21 07/10/22 1 Day Ago History ~07/09/22 mycophenolate mofetil 500 mg 1 tab PO BID@0800,1600 08/24/21 07/10/22 1 Day Ago History tablet (CellCept) ~07/09/22 prednisone 10 mg tablet 25 mg PO DAILY 11/30/21 07/10/22 1 Day Ago History ~07/09/22 albuterol sulfate 90 mcg/actuation 2 puff inhalation Q4H PRN Wheezing 01/23/22 07/10/22 05/19/22 History aerosol inhaler (Ventolin HFA) mirtazapine 30 mg tablet 1 tab PO BEDTIME 01/23/22 07/10/22 1 Day Ago History ~07/09/22 triamcinolone acetonide 0.1 % 1 appl topical BID PRN Inflammation 01/23/22 01/0 12/2505/19/22 History topical cream amlodipine 10 mg tablet 1 tab PO DAILY 07/10/22 07/10/22 Unknown History furosemide 20 mg tablet 20 mg PO DAILY 07/10/22 07/10/22 1 Day Ago History ~07/09/22 glipizide 5 mg tablet 5 mg PO BID 07/10/22 07/10/22 Unknown History oxycodone 5 mg tablet 10 mg PO Q8H PRN Pain, Severe 07/10/22 07/10/22 Unknown History (Pain Scale 7-10) tramadol 50 mg tablet 1 tab PO BID PRN Pain 07/10/22 07/10/22 Unknown History valsartan 40 mg tablet 40 mg PO DAILY 07/10/22 07/10/22 1 Day Ago History ~07/09/22 Physical Exam Vital Signs and Narrative: Vital Signs: Last Vital Signs Temp 98.2 F 07/10/22 13:57 Pulse 70 07/10/22 13:57 Resp 18 07/10/22 13:57 BP 121/76 07/10/22 13:57 Pulse Ox 98 07/10/22 13:57 O2 Del Method 07/10/22 13:57 BMI result Body Mass Index 27.6 Constitutional: Alert, in no acute distress. Mental Status: Oriented to person only. Eyes: Pupils are equal, round, and reactive to light. Ear, Nose, and Throat: Oropharynx clear, mucous membranes dry. Ears and nose without deformities. Trachea midline. No evidence of thrush Respiratory: Clear to auscultation bilaterally. No wheezing, rales, or rhonchi. Cardiovascular: S1, S2 regular. No murmurs, rubs, or gallops. Gastrointestinal: Abdomen soft, non-tender, non-distended. Normal bowel sounds. Neurologic: Cranial nerves II-XI are grossly intact. No focal neurological def icits. Moves all extremities spontaneously. Skin: No rashes or lesions noted. Musculoskeletal: No cyanosis or clubbing. Extremities: No edema. Psychiatric: Normal mood and affect. Results Labs 07/10/22 02:52 07/10/22 02:52 Labs: Laboratory Results - last 24 hr 07/10/22 07/10/22 07/10/22 02:25 02:52 02:52 MCV 89.8 MCH 29.1 MCHC 32.4 RDW 17.7 H Plt Count 275 D MPV 9.6 Immature Gran % (Auto) 0.7 H Neut % (Auto) 93.3 H Lymph % (Auto) 3.5 L [place] % (Auto) 2.4 Eos % (Auto) 0.0 Baso % (Auto) 0.1 Lymph # (Auto) 0.5 L [place] # (Auto) 0.3 Eos # (Auto) 0.0 Baso # (Auto) 0.0 Abs Immat Gran (auto) 0.10 H Absolute Neuts (auto) 13.4 H Absolute Nucleated RBC 0.020 H Nucleated RBC % (auto) 0.1 Smear Tech's Comments VERIFIED Anion Gap 19 Estim Creat Clear Calc 58.4 Estimated GFR > 60 POC Glucose 78 Random Glucose 297 H Calcium 7.9 L Total Bilirubin 0.7 AST 30 ALT 15 Alkaline Phosphatase 65 Total Protein 5.4 L Albumin 3.2 L COVID-19 (MANISHA) COVID-19 Clin Com Influenza Type A (VANDANA) Influenza Type B (VANDANA) Influenza A & B Note 07/10/22 07/10/22 07/10/22 06:20 06:37 06:38 MCV MCH MCHC RDW Plt Count MPV Immature Gran % (Auto) Neut % (Auto) Lymph % (Auto) [place] % (Auto) Eos % (Auto) Baso % (Auto) Lymph # (Auto) [place] # (Auto) Eos # (Auto) Baso # (Auto) Abs Immat Gran (auto) Absolute Neuts (auto) Absolute Nucleated RBC Nucleated RBC % (auto) Smear Tech's Comments Anion Gap Estim Creat Clear Calc Estimated GFR POC Glucose 44 L* 156 H Random Glucose Calcium Total Bilirubin AST ALT Alkaline Phosphatase Total Protein Albumin COVID-19 (MANISHA) Negative COVID-19 Clin Com See Note Influenza Type A (VANDANA) Influenza Type B (VANDANA) Influenza A & B Note 07/10/22 07/10/22 06:38 11:43 MCV MCH MCHC RDW Plt Count MPV Immature Gran % (Auto) Neut % (Auto) Lymph % (Auto) [place] % (Auto) Eos % (Auto) Baso % (Auto) Lymph # (Auto) [place] # (Auto) Eos # (Auto) Baso # (Auto) Abs Immat Gran (auto) Absolute Neuts (auto) Absolute Nucleated RBC Nucleated RBC % (auto) Smear Tech's Comments Anion Gap Estim Creat Clear Calc Estimated GFR POC Glucose 52 L* Random Glucose Calcium Total Bilirubin AST ALT Alkaline Phosphatase Total Protein Albumin COVID-19 (MANISHA) COVID-19 Clin Com Influenza Type A (VANDANA) Negative Influenza Type B (VANDANA) Negative Influenza A & B Note See Note Imaging Radiologist's Impressions: Impressions Chest X-Ray 07/10/22 06:45 IMPRESSION: No acute findings Abdomen/Pelvis CT 07/10/22 13:57 IMPRESSION: 1. No acute findings in the abdomen or pelvis. No inflammatory changes. 2. Cholelithiasis without evidence of acute cholecystitis. 3. Colonic diverticulosis without diverticulitis. Fleischner guidelines were followed. Assessment and Plan (1) Decubital ulcer: Status: Acute (2) Hypoglycemia: Status: Acute (3) Acute encephalopathy: Status: Acute Plan Pt is a 72-year-old male with a PMH significant for?TBI s/p cardiac arrest with ROSC 8 years ago, dm 2, CKD 3, decubitus ulcers stage II, myasthenia gravis, essential HTN, HLD, and chronic bilateral lower extremity edema likely secondary to venous stasis who presents to the ED from home via EMS for AMS, increased lethargy, and weakness. In the ED pt was found to be hypoglycemic at 45. Pt has been refusing to eat. Pt will be admitted for treatment and evaluation of acute encephalopathy likely secondary to hypoglycemia. Acute encephalopathy Likely secondary to hypoglycemia in the setting of decreased p.o. intake Patient arrived to ED with glucose of 45 Mentation improved with dextrose, back to baseline Continue D5 IV fluid, encourage po intake Right-sided facial droop and weakness, difficulty speaking Reported during phone call with family; this information was apparently not conveyed to EMS Likely secondary to hypoglycemia, less likely stroke Pt back to baseline, no focal deficits CT or head/brain to r/o stroke Hypoglycemia Likely secondary to decreased p.o. intake Continue D5 IV fluid Monitor POC Nutrition consult Myasthenia gravis Does not seem to be in an acute crisis O2 sat 98 on RA Continue prednisone, mycophenolate, and azathioprine If patient exhibits any respiratory distress, monitor vital capacity Decubitus ulcer stage II Air loss mattress Barrier cream Position changes q2 CKD stage III Creatinine 1.16, slightly above baseline Continue IV fluids Mood disorder Continue Remeron and Seroquel HTN Hold home meds for now, BP soft Full Code Attending:?Dr. Orantes DVT Prophylaxis: Compression therapy d/t hx of UGI bleed Pt will require a hospitalization of at least two nights for treatment of?acute encephalopathy likely secondary to hypoglycemia. Time Spent With Patient Time: Total time managing care of this patient today ____ minutes. Quality Stroke Does the patient have a stroke diagnosis?: No VTE Prior VTE?: Yes VTE Risk Level:: Medical - moderate - high VTE Device Contraindication: N/A - Device Ordered VTE Drug Contraindication: Treatment Not Indicated
[2022-07-10] MEDS: Omeprazole 20 MG CAPSULE.DR PO (18:21)
[2022-07-10] MEDS: Gabapentin 300 MG CAPSULE PO (18:21)
[2022-07-10 18:30] LABS: Glucose, Whole Blood 102 mg/dL (60-115)
--- NOTE | 2022-07-10 20:23 | PC.NURSE ---
report received from MADELINE Ruffin pt appear asleep no signs of acute distress notice breathing equally unlabored report given to MADELINE Rogers
[2022-07-10] MEDS: QUEtiapine Fumarate 25 MG TABLET PO (21:26)
[2022-07-10] MEDS: Mirtazapine 30 MG TABLET PO (21:26)
[2022-07-10] MEDS: pyRIDostigmine bromide 60 MG TABLET PO (21:26)
[2022-07-10 21:50] LABS: Glucose, Whole Blood 99 mg/dL (60-115)
[2022-07-10] MEDS: azaTHIOprine 50 MG TABLET PO (22:18)
[2022-07-11] MEDS: Dextrose 5 % 1,000 ML 100 ML IVCONT (00:50)
[2022-07-11 03:32] VITALS: BP 117/56; PULSE 92; RESP 17; TEMP 36.4; O2SAT 95
[2022-07-11] MEDS: Omeprazole 20 MG CAPSULE.DR PO ×2 (05:57→16:58)
[2022-07-11 06:43] LABS: Anion Gap 16 (12-20); Blood Urea Nitrogen 14 mg/dL (9-16); Calcium 7.7 mg/dL (8.4-10.2); Carbon Dioxide 20 mmol/L (22-29); Chloride 101 mmol/L (96-108); Creatinine Clr Calc Pharmacy 83.7; Estimated Glomerular Filt Rate > 60; Glucose Random 90 mg/dL (60-115); Potassium 2.6 mmol/L (3.3-5.1); Sodium 134 mmol/L (135-145)
[2022-07-11 07:43] LABS: Glucose, Whole Blood 110 mg/dL (60-115)
[2022-07-11 08:00] VITALS: BP 107/59; PULSE 85; RESP 16; TEMP 36.2; O2SAT 96
[2022-07-11] MEDS: Valsartan 40 MG TABLET PO (09:00)
[2022-07-11] MEDS: predniSONE 5 MG TABLET 25 MG PO (09:00)
[2022-07-11] MEDS: mycophenolate mofetiL 250 MG CAPSULE 500 MG PO ×2 (09:01→16:58)
[2022-07-11] MEDS: Potassium Chloride ER 20 MEQ TAB.ER.PRT 40 MEQ PO (09:01)
[2022-07-11] MEDS: pyRIDostigmine bromide 60 MG TABLET PO ×4 (09:02→21:14)
[2022-07-11] MEDS: Atorvastatin Calcium 80 MG TABLET PO (09:03)
[2022-07-11] MEDS: Furosemide 20 MG TABLET PO (09:03)
[2022-07-11] MEDS: azaTHIOprine 50 MG TABLET PO ×3 (09:03→21:14)
[2022-07-11] MEDS: Gabapentin 300 MG CAPSULE PO ×2 (09:03→16:58)
[2022-07-11] MEDS: 0.9 % Sodium Chloride Flush 3 ML SYRINGE IVFLUSH ×3 (09:04→21:21)
--- NOTE | 2022-07-11 11:23 | P.PNIM_ITS ---
Subjective Subjective Date of Service: 07/11/22 Interval History: Patient awake alert answering questions appropriately complaining of left hand pain at site of the IV infiltration, denies dysphagia, no other acute issues overnight. Review of Systems General no headache ,no dizziness no fever chills. CVS no chest pain, no palpitation. Respiratory no cough, no sob Gastrointestinal no nausea, no vomiting, no abdominal pain Review of Systems: Yes all other systems are reviewed and are negative Physical Exam Vital Signs: Vital Signs: Last Vital Signs Temp 97.2 F 07/11/22 08:00 Pulse 85 07/11/22 08:00 Resp 16 07/11/22 08:00 BP 107/59 L 07/11/22 08:00 Pulse Ox 96 07/11/22 08:00 O2 Del Method 07/11/22 08:00 BMI result Body Mass Index 27.6 Const: Other: General awake alert, no acute distress.? Neck supple no JVD. CVS? regular rate rhythm, Respiratory lungs clear to auscultation, no respiratory distress, no wheeze, no rhonchi. Gastrointestinal abdomen soft, obese, non tender, bowel sounds audible, no guarding , no rigidity. Extremities ?no edema mild ch. localized redness lower? extremities, no warmth, no tenderness Neuro nonfocal, moving all 4 extremity, speech stuttering psych appropriate affect stage II decubi ulcer both buttocks Objective Data Active Medications Acetaminophen (Acetaminophen 325 Mg Tablet) 650 mg PO Q6H PRN PRN Reason: Pain, Mild (Pain Scale 1-3) Albuterol Sulfate (Albuterol Sulfate 90 Mcg 8 Gm Inhaler) 2 puff INHALE Q4H PRN PRN Reason: Wheezing Atorvastatin Calcium (Atorvastatin Calcium 80 Mg Tablet) 80 mg PO DAILY [facility] Last Admin: 07/11/22 09:03 Dose: 80 mg Documented By: EYAD Azathioprine (Azathioprine 50 Mg Tablet) 50 mg PO TID [facility] Last Admin: 07/11/22 09:03 Dose: 50 mg Documented By: EYAD Dextrose (Dextrose 50 % 25 Gm/50 Ml Syringe) 25 gm IVPUSH Q15M PRN; Protocol PRN Reason: per Hypoglycemia Standing Ord. Docusate Sodium (Docusate Sodium 100 Mg Capsule) 100 mg PO DAILY PRN PRN Reason: Constipation Furosemide (Furosemide 20 Mg Tablet) 20 mg PO DAILY [facility]; Protocol Last Admin: 07/11/22 09:03 Dose: 20 mg Documented By: EYAD Gabapentin (Gabapentin 300 Mg Capsule) 300 mg PO BID@0800,1600 [facility] Last Admin: 07/11/22 09:03 Dose: 300 mg Documented By: EYAD Glucose (Glucose Gel 15 Gm Gel..Gram.) 15 gm PO Q15M PRN; Protocol PRN Reason: per Hypoglycemia Standing Ord. Insulin Human Lispro (Insulin Lispro 100 Unit/Ml 3 Ml Vial) 0 unit SUBCUT QIDACHS [facility]; Protocol Last Admin: 07/11/22 08:06 Dose: Not Given Documented By: EYAD Non-Admin Reason: No Insulin Coverage Loperamide HCl (Loperamide Hcl 2 Mg Capsule) 2 mg PO BID@0800,1600 PRN PRN Reason: Diarrhea Mirtazapine (Mirtazapine 30 Mg Tablet) 30 mg PO BEDTIME [facility] Last Admin: 07/10/22 21:26 Dose: 30 mg Documented By: ROE Mycophenolate Mofetil (Mycophenolate Mofetil 250 Mg Capsule) 500 mg PO BID@0800,1600 [facility] Last Admin: 07/11/22 09:01 Dose: 500 mg Documented By: EYAD Omeprazole (Omeprazole 20 Mg Capsule.) 20 mg PO BID@0630,1630 [facility] Last Admin: 07/11/22 05:57 Dose: 20 mg Documented By: ROE Ondansetron HCl (Ondansetron Hcl 4 Mg/2 Ml Vial) 4 mg IVPUSH Q8H PRN PRN Reason: Nausea and Vomiting Oxycodone HCl (Oxycodone Hcl Immed Release 5 Mg Tablet) 10 mg PO Q8H PRN PRN Reason: Pain, Severe (Pain Scale 7-10) Pharmacy Consult (Consult Rx Perform Med Rec) 1 each MISCELLANE ONCE PRN PRN Reason: Consult order Prednisone (Prednisone 5 Mg Tablet) 25 mg PO DAILY [facility] Last Admin: 07/11/22 09:00 Dose: 25 mg Documented By: EYAD Pyridostigmine [place] (Pyridostigmine [place] 60 Mg Tablet) 60 mg PO QID [facility] Last Admin: 07/11/22 09:02 Dose: 60 mg Documented By: EYAD Quetiapine Fumarate (Quetiapine Fumarate 25 Mg Tablet) 25 mg PO BEDTIME [facility] Last Admin: 07/10/22 21:26 Dose: 25 mg Documented By: ROE Sodium Chloride (0.9 % Sodium Chloride Flush 3 Ml Syringe) 3 ml IVFLUSH QSHIFT [facility] Last Admin: 07/11/22 09:04 Dose: 3 ml Documented By: EYAD Valsartan (Valsartan 40 Mg Tablet) 40 mg PO DAILY [facility]; Protocol Last Admin: 07/11/22 09:00 Dose: 40 mg Documented By: EYAD Labs 07/10/22 02:52 07/11/22 05:36 Labs: Laboratory Results - last 24 hr 07/10/22 07/10/22 07/10/22 11:43 18:26 21:45 Anion Gap Estim Creat Clear Calc Estimated GFR POC Glucose 52 L* 102 99 Random Glucose Calcium 07/11/22 07/11/22 05:36 07:26 Anion Gap 16 Estim Creat Clear Calc 83.7 Estimated GFR > 60 POC Glucose 110 Random Glucose 90 Calcium 7.7 L Assessment and Plan (1) Acute encephalopathy: Status: Acute (2) Hypoglycemia: Status: Acute Plan 72-year-old male with a PMH significant for?TBI s/p cardiac arrest with ROSC 8 years ago, dm 2, CKD 3, decubitus ulcers stage II, myasthenia gravis, essential HTN, HLD, and chronic bilateral lower extremity edema likely secondary to venous stasis who presents to the ED from home via EMS for AMS, increased lethargy, and weakness. In the ED pt was found to be hypoglycemic at 45. Pt has been refusing to eat. Pt will be admitted for treatment and evaluation of acute encephalopathy likely secondary to hypoglycemia. Acute encephalopathy resolved Was Likely secondary to hypoglycemia in the setting of decreased p.o. intake and taking glipizide DC IV fluids, DC glipizide encourage by mouth intake Right-sided facial droop and weakness, difficulty speaking likely due to hypoglycemia CT head unremarkable patient back to baseline Hypokalemia likely due to diuretics and diarrhea, will replace and follow BMP Hypoglycemia Likely secondary to decreased p.o. intake, blood sugars improved DC IV fluids DC glipizide continue insulin sliding scale Myasthenia gravis O2 sat 98 on RA Continue prednisone, mycophenolate, and azathioprine Decubitus ulcer coccyx stage II Air loss mattress Barrier cream Position changes q2 CKD stage III stable kidney function Mood disorder Continue Remeron and Seroquel HTN BP fluctuating continue Diovan Full Code DVT Prophylaxis: Compression therapy d/t hx of UGI bleed Pt will require a hospitalization of at least two nights for treatment of?acute encephalopathy likely secondary to hypoglycemia. Time Spent With Patient Time: Total time managing care of this patient today ____ minutes. Quality Stroke Does the patient have a stroke diagnosis?: No VTE Prior VTE?: Yes VTE Risk Level:: Medical - moderate - high VTE Device Contraindication: N/A - Device Ordered VTE Drug Contraindication: Treatment Not Indicated
[2022-07-11 11:26] LABS: Glucose, Whole Blood 107 mg/dL (60-115)
[2022-07-11] MEDS: Potassium Chloride ER 20 MEQ TAB.ER.PRT PO (13:01)
[2022-07-11 15:32] VITALS: BP 107/53; PULSE 70; RESP 16; TEMP 36.4; O2SAT 98
[2022-07-11 16:35] LABS: Glucose, Whole Blood 244 mg/dL (60-115)
[2022-07-11] MEDS: Insulin Lispro 100 UNIT/ML 3 ML VIAL SUBCUT ×2 (16:59→21:14)
[2022-07-11 19:16] VITALS: BP 126/58; PULSE 71; RESP 20; TEMP 36.5; O2SAT 98
[2022-07-11 20:23] LABS: Glucose, Whole Blood 199 mg/dL (60-115)
[2022-07-11] MEDS: QUEtiapine Fumarate 25 MG TABLET PO (21:14)
[2022-07-11] MEDS: Mirtazapine 30 MG TABLET PO (21:14)
[2022-07-12 00:06] LABS: CDiff Gene PCR NEGATIVE (Negative)
[2022-07-12] MEDS: ondansetron HCL 4 MG/2 ML VIAL IVPUSH ×2 (00:14→10:28)
[2022-07-12 03:57] VITALS: BP 98/48; PULSE 71; RESP 20; TEMP 36.4; O2SAT 97
[2022-07-12] MEDS: Omeprazole 20 MG CAPSULE.DR PO ×2 (05:59→17:52)
[2022-07-12 06:11] LABS: Anion Gap 14 (12-20); Blood Urea Nitrogen 13 mg/dL (9-16); Calcium 8.4 mg/dL (8.4-10.2); Carbon Dioxide 23 mmol/L (22-29); Chloride 103 mmol/L (96-108); Creatinine Clr Calc Pharmacy 78.8; Estimated Glomerular Filt Rate > 60; Glucose Random 115 mg/dL (60-115); Potassium 3.2 mmol/L (3.3-5.1); Sodium 137 mmol/L (135-145)
[2022-07-12 08:00] VITALS: BP 108/53; PULSE 87; RESP 18; TEMP 36.4; O2SAT 96
[2022-07-12] MEDS: Furosemide 20 MG TABLET PO (09:52)
[2022-07-12] MEDS: Gabapentin 300 MG CAPSULE PO ×2 (09:54→17:53)
[2022-07-12] MEDS: Atorvastatin Calcium 80 MG TABLET PO (09:54)
[2022-07-12] MEDS: mycophenolate mofetiL 250 MG CAPSULE 500 MG PO ×2 (09:55→17:53)
[2022-07-12] MEDS: 0.9 % Sodium Chloride Flush 3 ML SYRINGE IVFLUSH ×3 (09:55→19:50)
[2022-07-12] MEDS: pyRIDostigmine bromide 60 MG TABLET PO ×4 (09:56→19:45)
[2022-07-12] MEDS: predniSONE 5 MG TABLET 25 MG PO (09:56)
[2022-07-12] MEDS: Potassium Chloride ER 20 MEQ TAB.ER.PRT 40 MEQ PO (09:56)
[2022-07-12] MEDS: azaTHIOprine 50 MG TABLET PO ×3 (09:57→19:46)
[2022-07-12] MEDS: Loperamide HCl 2 MG CAPSULE PO (11:32)
--- NOTE | 2022-07-12 12:01 | P.PNIM_ITS ---
Subjective Subjective Date of Service: 07/12/22 Interval History: Patient tolerated 100% of breakfast this morning denies bad taste in mouth, denies dysphagia, takes a long time to swallow pills, complain of nausea that improved with antiemetic, wishes to be discharged home, wants to know why is he forgetful, blood sugars improved. Review of Systems Review of Systems: Yes all other systems are reviewed and are negative Physical Exam Vital Signs: Vital Signs: Last Vital Signs Temp 97.5 F 07/12/22 08:00 Pulse 87 07/12/22 08:00 Resp 18 07/12/22 08:00 BP 108/53 L 07/12/22 08:00 Pulse Ox 96 07/12/22 08:00 O2 Del Method Aerosol Mask 07/12/22 08:00 BMI result Body Mass Index 27.6 Const: Other: General awake alert, no acute distress.? Oral cavity no thrush Neck supple no JVD. CVS? regular rate rhythm, Respiratory lungs clear to auscultation, no respiratory distress, no wheeze, no rhonchi. Gastrointestinal abdomen soft, obese, non tender, bowel sounds audible, no guarding , no rigidity. Extremities ?no edema mild ch. localized redness lower? extremities, no warmth, no tenderness, left hand swelling and tenderness, no redness at site of IV infiltration Neuro nonfocal, moving all 4 extremity, speech stuttering psych appropriate affect stage II decubi ulcer both buttocks Objective Data Active Medications Acetaminophen (Acetaminophen 325 Mg Tablet) 650 mg PO Q6H PRN PRN Reason: Pain, Mild (Pain Scale 1-3) Albuterol Sulfate (Albuterol Sulfate 90 Mcg 8 Gm Inhaler) 2 puff INHALE Q4H PRN PRN Reason: Wheezing Atorvastatin Calcium (Atorvastatin Calcium 80 Mg Tablet) 80 mg PO DAILY REPLACED BY [facility] Last Admin: 07/12/22 09:54 Dose: 80 mg Documented By: TARUN Azathioprine (Azathioprine 50 Mg Tablet) 50 mg PO TID REPLACED BY [facility] Last Admin: 07/12/22 09:57 Dose: 50 mg Documented By: TARUN Dextrose (Dextrose 50 % 25 Gm/50 Ml Syringe) 25 gm IVPUSH Q15M PRN; Protocol PRN Reason: per Hypoglycemia Standing Ord. Docusate Sodium (Docusate Sodium 100 Mg Capsule) 100 mg PO DAILY PRN PRN Reason: Constipation Furosemide (Furosemide 20 Mg Tablet) 20 mg PO DAILY REPLACED BY [facility]; Protocol Last Admin: 07/12/22 09:52 Dose: 20 mg Documented By: TARUN Gabapentin (Gabapentin 300 Mg Capsule) 300 mg PO BID@0800,1600 REPLACED BY [facility] Last Admin: 07/12/22 09:54 Dose: 300 mg Documented By: TARUN Glucose (Glucose Gel 15 Gm Gel..Gram.) 15 gm PO Q15M PRN; Protocol PRN Reason: per Hypoglycemia Standing Ord. Insulin Human Lispro (Insulin Lispro 100 Unit/Ml 3 Ml Vial) 0 unit SUBCUT QIDACHS REPLACED BY [facility]; Protocol Last Admin: 07/12/22 09:54 Dose: 2 unit Documented By: TARUN Comments: was drowsy and only eating now Loperamide HCl (Loperamide Hcl 2 Mg Capsule) 2 mg PO BID@0800,1600 PRN PRN Reason: Diarrhea Last Admin: 07/12/22 11:32 Dose: 2 mg Documented By: TARUN Mirtazapine (Mirtazapine 30 Mg Tablet) 30 mg PO BEDTIME REPLACED BY [facility] Last Admin: 07/11/22 21:14 Dose: 30 mg Documented By: ROE Mycophenolate Mofetil (Mycophenolate Mofetil 250 Mg Capsule) 500 mg PO B ID@0800,1600 REPLACED BY [facility] Last Admin: 07/12/22 09:55 Dose: 500 mg Documented By: TARUN Omeprazole (Omeprazole 20 Mg Capsule.) 20 mg PO BID@0630,1630 REPLACED BY [facility] Last Admin: 07/12/22 05:59 Dose: 20 mg Documented By: JER Ondansetron HCl (Ondansetron Hcl 4 Mg/2 Ml Vial) 4 mg IVPUSH Q8H PRN PRN Reason: Nausea and Vomiting Last Admin: 07/12/22 10:28 Dose: 4 mg Documented By: TARUN Oxycodone HCl (Oxycodone Hcl Immed Release 5 Mg Tablet) 10 mg PO Q8H PRN PRN Reason: Pain, Severe (Pain Scale 7-10) Pharmacy Consult (Consult Rx Perform Med Rec) 1 each MISCELLANE ONCE PRN PRN Reason: Consult order Prednisone (Prednisone 5 Mg Tablet) 25 mg PO DAILY REPLACED BY [facility] Last Admin: 07/12/22 09:56 Dose: 25 mg Documented By: TARUN Pyridostigmine Meeker (Pyridostigmine Meeker 60 Mg Tablet) 60 mg PO QID REPLACED BY [facility] Last Admin: 07/12/22 09:56 Dose: 60 mg Documented By: TARUN Quetiapine Fumarate (Quetiapine Fumarate 25 Mg Tablet) 25 mg PO BEDTIME REPLACED BY [facility] Last Admin: 07/11/22 21:14 Dose: 25 mg Documented By: ROE Sodium Chloride (0.9 % Sodium Chloride Flush 3 Ml Syringe) 3 ml IVFLUSH QSHIFT REPLACED BY [facility] Last Admin: 07/12/22 09:55 Dose: 3 ml Documented By: TARUN Labs 07/10/22 02:52 07/12/22 05:42 Labs: Laboratory Results - last 24 hr 07/11/22 07/11/22 07/11/22 16:28 20:19 22:40 Anion Gap Estim Creat Clear Calc Estimated GFR POC Glucose 244 H 199 H Random Glucose Calcium C. difficile Tox B Gene NEGATIVE 07/12/22 05:42 Anion Gap 14 Estim Creat Clear Calc 78.8 Estimated GFR > 60 POC Glucose Random Glucose 115 Calcium 8.4 D C. difficile Tox B Gene Assessment and Plan (1) Hypoglycemia: Status: Acute (2) Acute encephalopathy: Status: Acute Plan 72-year-old male with a PMH significant for?TBI s/p cardiac arrest with ROSC 8 years ago, dm 2, CKD 3, decubitus ulcers stage II, myasthenia gravis, essential HTN, HLD, and chronic bilateral lower extremity edema likely secondary to venous stasis who presents to the ED from home via EMS for AMS, increased lethargy, and weakness. In the ED pt was found to be hypoglycemic at 45. Pt has been refusing to eat. Pt will be admitted for treatment and evaluation of acute encephalopathy likely secondary to hypoglycemia. Acute encephalopathy resolved Was Likely secondary to hypoglycemia in the setting of decreased p.o. intake and taking glipizide DC IV fluids, DC glipizide encourage by mouth intake Mild forgetfulness likely due to mild cognitive impairment, CT head showed mild bilateral periventricular patchy disease consistent with chronic microangiopathy and mild global volume loss, will check B12 folate and TSH. Called patient's and left message to decide discharge plan. Right-sided facial droop and weakness,with difficulty speaking likely due to hypoglycemia CT head unremarkable patient back to baseline. Hypokalemia likely due to diuretics and diarrhea, potassium improved from 2.6- 3.2, continue to replace and follow BMP Hypoglycemia Likely secondary to decreased p.o. intake, blood sugars improved DC IV fluids, will resume glipizide 5 mg daily and continue insulin sliding scale Myasthenia gravis O2 sat 98 on RA Continue prednisone, mycophenolate, and azathioprine Decubitus ulcer coccyx stage II Air loss mattress Barrier cream Position changes q2 CKD stage III? stable kidney function Mood disorder Continue Remeron and Seroquel HTN BP soft will DC Diovan Full Code DVT Prophylaxis: Compression therapy d/t hx of UGI bleed Pt require continued hospitalization for generalized weakness, forgetfulness, hypokalemia, PT recommended short-term rehab called and left message natalie ferguson discharge plan since patient wishes to be discharged home will also discuss dispo plan with counseling case manager . Time Spent With Patient Time: Total time managing care of this patient today ____ minutes. Quality Stroke Does the patient have a stroke diagnosis?: No VTE Prior VTE?: Yes VTE Risk Level:: Medical - moderate - high VTE Device Contraindication: N/A - Device Ordered VTE Drug Contraindication: Treatment Not Indicated
[2022-07-12] MEDS: oxyCODONE HCl Immed Release 5 MG TABLET 10 MG PO (12:26)
[2022-07-12 12:34] LABS: Glucose, Whole Blood 114 mg/dL (60-115)
[2022-07-12 16:00] VITALS: BP 108/55; PULSE 76; RESP 18; TEMP 36.8; O2SAT 98
[2022-07-12 16:29] LABS: Glucose, Whole Blood 226 mg/dL (60-115)
[2022-07-12] MEDS: Insulin Lispro 100 UNIT/ML 3 ML VIAL SUBCUT ×2 (17:52→21:07)
[2022-07-12] MEDS: QUEtiapine Fumarate 25 MG TABLET PO (19:45)
[2022-07-12] MEDS: Mirtazapine 30 MG TABLET PO (19:46)
[2022-07-12 20:00] VITALS: BP 97/52; PULSE 70; RESP 18; TEMP 36.6; O2SAT 98
[2022-07-12 21:03] LABS: Glucose, Whole Blood 245 mg/dL (60-115)
[2022-07-13 03:20] VITALS: BP 100/55; PULSE 69; RESP 16; TEMP 36.1; O2SAT 97
[2022-07-13] MEDS: Omeprazole 20 MG CAPSULE.DR PO (05:31)
[2022-07-13 06:48] LABS: Potassium 4.1 mmol/L (3.3-5.1)
[2022-07-13 07:12] LABS: Thyroid Stimulating Hormone 1.48 uIU/mL (0.32-4.0)
[2022-07-13 07:24] LABS: Folate 5.2 ng/mL (> or = 4.0); Vitamin B12 523 pg/mL (200-900)
[2022-07-13 07:30] VITALS: BP 127/57; PULSE 73; RESP 16; TEMP 36.4; O2SAT 96
[2022-07-13 07:39] LABS: Glucose, Whole Blood 140 mg/dL (60-115)
[2022-07-13] MEDS: Gabapentin 300 MG CAPSULE PO (09:32)
[2022-07-13] MEDS: mycophenolate mofetiL 250 MG CAPSULE 500 MG PO (09:32)
[2022-07-13] MEDS: pyRIDostigmine bromide 60 MG TABLET PO ×2 (09:32→13:48)
[2022-07-13] MEDS: azaTHIOprine 50 MG TABLET PO ×2 (09:32→13:48)
[2022-07-13] MEDS: Furosemide 20 MG TABLET PO (09:32)
[2022-07-13] MEDS: predniSONE 5 MG TABLET 25 MG PO (09:32)
[2022-07-13] MEDS: glipiZIDE 5 MG TABLET PO (09:32)
[2022-07-13] MEDS: 0.9 % Sodium Chloride Flush 3 ML SYRINGE IVFLUSH (09:33)
[2022-07-13 11:28] LABS: Glucose, Whole Blood 105 mg/dL (60-115)
--- NOTE | 2022-07-13 12:39 | PM.DS ---
DS: Providers Provider Date of Service: 07/13/22 Date of admission: 07/10/22 16:05 Primary care physician: Justino Lara MD DS: Diagnosis Discharge Diagnosis (1) Hypoglycemia: Status: Acute (2) Acute encephalopathy: Status: Acute DS: Summary Hospital Course Hospital Course: Date of Service: 07/10/22 Attending physician on admission: Jose Orantes Chief Complaint: AMS and weakness Pt is a 72-year-old male with a PMH significant for?TBI s/p cardiac arrest with ROSC 8 years ago, dm 2, CKD 3, decubitus ulcers stage II, myasthenia gravis, essential HTN, HLD, and chronic bilateral lower extremity edema likely secondary to venous stasis who presents to the ED from home via EMS for AMS, increased lethargy, and weakness.? HPI difficult to obtain due to patient's state of confusion.? Patient confused at baseline.? Part of HPI obtained from family, whom he lives with.? According to the daughter patient has been nauseous and had decreased appetite for the past 3-4 days.? Patient was recently at rehab and returned home on 06/25.? Prior to this he was ambulatory with a walker, but after return has been nonambulatory.? Family noticed that the patient has been progressively weak the past 3-4 days, but this morning they noticed he was more confused and could not even get out of bed.? They also noted he had right-sided arm weakness and right-sided facial droop and difficulty talking; the family claims this last information was not properly conveyed to EMS, and thus not to the ED department at the hospital.? The patient himself states that he has been ?sneaking? his meds and throwing them away while his family is not looking.? Patient also states that he has not been eating or drinking because hard to swallow and food taste funny. Patient says he has been nauseous, lightheaded, dizzy.? He also says that his heels hurt. Of note patient had recent admissions on 04/21 for bilateral DVT started on Eliquis, and 06/22/2022 for acute blood loss anemia secondary to upper GI bleed from 6 gastric ulcers, erosive esophagitis, and duodenal ulcer.? On 06/24/2022 patient had successful placement of an infrarenal IVC filter.? Patient also has a history of myasthenia gravis with his last crisis in 2019. In the ED patient was found have a glucose of 45. Labs were significant for leukocytosis of 14.4, H&H of 10.9/33.6 (at baseline), hypo kalemia 3.0. CXR was clear. CT?of abdomen and pelvis showed no acute findings or inflammatory changes, cholelithiasis without evidence of acute cholecystitis, and colonic diverticulosis without diverticulitis. UA was clear. Tested negative for influenza A, B, RSV, COVID. Pt was treated with dextrose and D5 IVF. Pt will be admitted to the hospital for treatment and evaluation of acute encephalopathy likely secondary to hypoglycemia. Hospital course 72-year-old male with a PMH significant for?TBI s/p cardiac arrest with ROSC 8 years ago, dm 2, CKD 3, decubitus ulcers stage II, myasthenia gravis, essential HTN, HLD, and chronic bilateral lower extremity edema likely secondary to venous stasis who presents to the ED from home via EMS for AMS, increased lethargy, and weakness. In the ED pt was found to be hypoglycemic at 45. Pt has been refusing to eat. Pt will be admitted for treatment and evaluation of acute encephalopathy likely secondary to hypoglycemia. Acute encephalopathy resolved, was Likely secondary to hypoglycemia in the setting of decreased p.o. intake and taking glipizide, patient treated with IV D5W, glipizide was held, subsequently patient became more awake alert now tolerating diet, IV fluid discontinued patient started back on glipizide 5 mg daily, patient was concern about forgetfulness likely due to mild cognitive impairment, CT head showed mild bilateral periventricular patchy disease consistent with chronic microangiopathy and mild global volume loss, B12, folate and TSH are within normal range, patient is on multiple medications recommend outpatient follow-up with primary care physician to review meds. Discontinued rosuvastatin due to an LDL of 9 and total cholesterol of 131 from March 2022, also reduced dose of Protonix to 40 mg once daily likely was causing diarrhea. Right-sided facial droop and weakness,with difficulty speaking likely due to hypoglycemia CT head unremarkable patient back to baseline. Hypokalemia likely due to diuretics and diarrhea, potassium improved. Myasthenia gravis Continue prednisone, mycophenolate, and azathioprine and follow-up with PCP Decubitus ulcer coccyx stage II, continue barrier cream and frequent position change CKD stage III? stable kidney function Mood disorder Continue Remeron and Seroquel HTN BP soft , all antihypertensive discontinued follow BP closely as outpatient Time Spent with Patient Time attestation: Total time managing care of this patient today ____ minutes. Discharge coordination time: Greater than 30 minutes Quality: Safe Use of Opioids Does Pt have an Active Cancer Diagnosis on the Problem List?: No Quality: Stroke Does the patient have a stroke diagnosis?: No Physical Exam Vital Signs: Vital Signs: Last Vital Signs Temp 97.5 F 07/13/22 07:30 Pulse 73 07/13/22 07:30 Resp 16 07/13/22 07:30 BP 127/57 L 07/13/22 07:30 Pulse Ox 96 07/13/22 07:30 O2 Del Method 07/13/22 07:30 BMI result Body Mass Index 27.6 Const: Other: General awake alert, no acute distress.? Oral cavity no thrush Neck supple no JVD. CVS? regular rate rhythm, Respiratory lungs clear to auscultation, no respiratory distress, no wheeze, no rhonchi. Gastrointestinal abdomen soft, obese, non tender, bowel sounds audible, no guarding , no rigidity. Extremities ?no edema mild ch. localized redness lower? extremities, no warmth, no tenderness, left hand swelling and tenderness, no redness at site of IV infiltration Neuro nonfocal, moving all 4 extremity, speech stuttering psych appropriate affect stage II decubi ulcer both buttocks DS: Data Data Completed and Pending Completed studies during hospitalization [Text1]: Procedures Excision of Stomach, Pylorus, Via Natural or Artificial Opening Endoscopic, Diagnostic (06/22/22) Transfusion of Nonautologous Frozen Plasma into Peripheral Vein, Percutaneous Approach (06/22/22) Transfusion of Nonautologous Red Blood Cells into Peripheral Vein, Percutaneous Approach (06/22/22) Labs on day of discharge: Laboratory Results - last 24 hr 07/12/22 07/12/22 07/13/22 16:25 20:31 05:33 Potassium 4.1 D POC Glucose 226 H 245 H Vitamin B12 Folate TSH 1.48 07/13/22 07/13/22 07/13/22 05:33 07:34 11:24 Potassium POC Glucose 140 H 105 Vitamin B12 523 Folate 5.2 TSH Discharge Plan Discharge Anticipated Discharge Date/Time: 07/13/22 12:07 Patient Disposition: Home Health Service Discharge Diagnosis: Acute toxic metabolic encephalopathy Referrals: Justino Lara MD [Primary Care Provider] - 1 Week Discharge Medications: Continued quetiapine 25 mg tablet 1 tab PO BEDTIME azathioprine [Imuran] 50 mg tablet 50 mg PO TID pyridostigmine bromide 60 mg tablet 1 tab PO QID loperamide 2 mg capsule 2 mg PO BID@0800,1600 PRN (Reason: Diarrhea) mycophenolate mofetil [CellCept] 500 mg tablet 1 tab PO BID@0800,1600 gabapentin 300 mg capsule 1 cap PO BID@0800,1600 prednisone 10 mg tablet 25 mg PO DAILY Rx Instructions: day 2 of 7 triamcinolone acetonide 0.1 % cream 1 appl topical BID PRN (Reason: Inflammation) Rx Instructions: apply to inflamed portions around the open wounds mirtazapine 30 mg tablet 1 tab PO BEDTIME albuterol sulfate [Ventolin HFA] 90 mcg/actuation HFA aerosol inhaler 2 puff inhalation Q4H PRN (Reason: Wheezing) oxycodone 5 mg tablet 10 mg PO Q8H PRN (Reason: Pain, Severe (Pain Scale 7-10)) Rx Instructions: Partial Fill upon patient request. furosemide 20 mg Tablet 20 mg PO DAILY Changed glipizide 5 mg Tablet 5 mg PO DAILY Qty: 30 0RF pantoprazole 40 mg tablet,delayed release (DR/EC) 40 mg PO DAILY Qty: 60 0RF Discontinued rosuvastatin 20 mg tablet 20 mg PO DAILY 90 Days Qty: 90 0RF tramadol 50 mg tablet 1 tab PO BID PRN (Reason: Pain) amlodipine 10 mg tablet 1 tab PO DAILY valsartan 40 mg Tablet 40 mg PO DAILY Discharge Orders: Discharge Order (Routine); Ordered 07/13/22 Ordered By: Jose Orantes Diet: Diabetic diet Activity on Discharge: As tolerated Stand Alone Forms: Patient Portal Discharge page Care Plan Goals: Confusion resolved was likely due to hypoglycemia dose of glipizide reduced to 5 mg daily Dose of Protonix reduced to 40 mg daily Statin discontinued due to low cholesterol level, follow cholesterol level in 6 months and resume medication if needed On multiple medications at home please follow-up with primary care physician Noted to have low blood pressure therefore stopped antihypertensive medication Stop tramadol since on oxycodone both can cause sedation and confusion Health Concerns: Follow blood sugar closely Plan of Treatment: Close follow-up with primary care physician Assessment: As above
--- NOTE | 2022-07-13 14:10 | MHC.CM.PN ---
PT CLEARED TO DC HOME TODAY WITH RESUMPTION OF HIS [facility] SERVICES CM CALLED PTS DAUGHTER, ESPREANZA [phone] AND INFORMED HER OF INTENT TO DC SHE REPORTS BEING AGREEABLE TO DC AND A TIME OF 1430 PT WILL DC HOME TODAY AT 1430 [facility] WITH RESUMPTION OF FAMILY SUPPORT AND [facility]
== END 2022-07-13 15:00 | disposition home health service (06) | DRG 637 ==
LOC: HO.ED 16:16 → HO.EDOVER 16:23 → HO.S3 19:29
PROVIDERS: Physician Assistant Medical; Admitting Provider Student in an Organized Health Care Education/Training Program; Emergency Provider Internal Medicine; PCP Internal Medicine; Visit Provider Hospitalist
DX: E11.649 Type 2 diabetes mellitus with hypoglycemia without coma (principal); G93.41 Metabolic encephalopathy; E11.22 Type 2 diabetes mellitus with diabetic chronic kidney disease; I12.9 Hypertensive chronic kidney disease with stage 1 through stage 4 chronic kidney disease, or unspecified chronic kidney disease; N18.30 Chronic kidney disease, stage 3 unspecified; L89.322 Pressure ulcer of left buttock, stage 2; L89.312 Pressure ulcer of right buttock, stage 2; E87.6 Hypokalemia; E78.5 Hyperlipidemia, unspecified; F39 Unspecified mood [affective] disorder; G70.00 Myasthenia gravis without (acute) exacerbation; I87.8 Other specified disorders of veins; Z20.822 Contact with and (suspected) exposure to COVID-19; Z86.718 Personal history of other venous thrombosis and embolism; Z87.820 Personal history of traumatic brain injury; Z86.16 Personal history of COVID-19; Z87.891 Personal history of nicotine dependence; Z79.52 Long term (current) use of systemic steroids; Z79.84 Long term (current) use of oral hypoglycemic drugs; Z79.899 Other long term (current) drug therapy
CPT/HCPCS: 36415; 51798; 70450; 71045; 74176; 80048; 80053; 82607; 82746; 82947; 84132; 84443; 85025; 87493; 87502; 87635; 96365; 96375; 96376; 97162; 99284; 99285; J2405